=== PATIENT | female | born 1965 | race Caucasian/White ===

== ENCOUNTER 2023-12-05 10:29 | Outpatient (OUT) | payer OTHER, SELFPAY ==
--- NOTE | 2023-12-05 10:32 | US_ITS ---
The [address] [address] Patient Name: KYLEIGH BHAKTA MRN: [id number] date: 1965 Sex: F Assigned Patient Location: Current Patient Location: Accession/Order Number: [id number] Exam Date: 12/05/2023 10:33 Report Date: 12/06/2023 09:40 At the request of: RUBY AYON Procedure: US right upper quadrant EXAMINATION: US right upper quadrant HISTORY: Liver Disease K76.9, Elevated Liver Enzymes R74.8 COMPARISON: No relevant comparison available. TECHNIQUE: Transabdominal evaluation of the right upper quadrant. FINDINGS: LIVER: Heterogeneous, nodular liver suggestive of cirrhosis. Small amount of adjacent free fluid. PORTAL VEIN: Duplex Doppler demonstrates normal hepatopetal flow pattern with flow velocity averaging 29 cm/s. GALLBLADDER: Contains a 2.2 x 2.0 x 1.8 cm noncalcified structure within the fundus. No appreciable internal blood flow on color Doppler. No wall thickening or free fluid. BILIARY: No abnormal dilation or stones. Common bile duct diameter is within normal limits. PANCREASE: No visible mass, abnormal atrophy, or duct dilation. KIDNEY: No hydronephrosis. No visible mass or stones. Size: 10.6 x 5.4 x 5.0 cm. US/US right upper quadrant IMPRESSION: 1. Heterogeneous nodular liver and small amount of ascites suggestive of cirrhosis. 2. Nonspecific structure within gallbladder 2.2 cm in size and no appreciable internal blood flow. This is nonspecific but consideration is given to a large sludge ball, hypovascular mass, and/or polyp. Follow-up ultrasound evaluation of gallbladder in one-2 weeks is recommended to see if a sludge ball has cleared or this represents persistent soft tissue/mass. Electronically authenticated by: ANDER RIGGINS Date: 12/06/2023 09:40
== END 2023-12-05 10:30 | disposition home or self-care (01) ==
LOC: US 10:29
PROVIDERS: PCP Family Medicine; Visit Provider Nurse Practitioner Family
DX: K76.9 Liver disease, unspecified (principal); R74.8 Abnormal levels of other serum enzymes; R18.8 Other ascites
CPT/HCPCS: 76705

== ENCOUNTER 2023-12-28 10:29 | Outpatient (OUT) | payer OTHER, SELFPAY ==
--- NOTE | 2023-12-28 10:31 | MM_ITS ---
Patient Name: KYLEIGH BHAKTA MR#: [id number] : 1965 Exam Date: 12/28/2023 Ordering Doctor: DR BRYSON RODRIGUEZ M.D. RADIOLOGY REPORT PROCEDURE: MM TOMOSYNTHESIS SCREENING BI COMPARISON: MG MAMM SCREEN 3D ALEX CAD, 08/02/2022. INDICATIONS: Screening Calculator Name NCI Breast Cancer Risk Assessment Tool 5 Year Breast Cancer Risk Not Reported. Lifetime Breast Cancer Risk Not Reported. Personal Breast Cancer No Personal Ovarian Cancer No Treatments None Family Cancers None LOCATION: [facility] BREAST COMPOSITION: The breasts are extremely dense, which lowers the sensitivity of mammography. FINDINGS: DIAGNOSTIC CATEGORY 2--BENIGN FINDING. NO CHANGE FROM COMPARISON. Scattered benign-appearing calcifications are present. RIGHT BREAST: No significant suspicious finding. LEFT BREAST: No significant suspicious finding. RECOMMENDATIONS: ROUTINE MAMMOGRAM AND CLINICAL EVALUATION IN 12 MONTHS. PLEASE NOTE: A NORMAL MAMMOGRAM DOES NOT EXCLUDE THE POSSIBILITY OF BREAST CANCER. A CLINICALLY SUSPICIOUS PALPABLE LUMP SHOULD BE BIOPSIED. Dictated by: Herrera Burleson MD on 12/28/2023 at 12:24 Approved by: Herrera Burleson MD on 12/28/2023 at 12:25
== END 2023-12-28 10:30 | disposition home or self-care (01) ==
LOC: MAMMO 10:29
PROVIDERS: PCP Family Medicine; Visit Provider Family Medicine
DX: Z12.31 Encounter for screening mammogram for malignant neoplasm of breast (principal)
CPT/HCPCS: 77063; 77067

== ENCOUNTER 2024-01-11 09:47 | Outpatient (OUT) | payer OTHER, SELFPAY ==
--- OUTSIDE RECORDS SUMMARY | 2024-01-11 09:51 | XMS_ITS | CCD ---
Author Organization [facility] Care Team Providers Care Core Stacker Name Role Phone CR DELACRUZ Attending Unavailable SELF, REFERRED Referring Unavailable RUTH RODRIGUEZ Primary Care Unavailable CR DELACRUZ Admitting Unavailable NIKO MCDONALD Attending Unavailable NIKO MCDONALD Referring Unavailable JENNIFER, DR MASSEY Admitting Unavailable JENNIFER, DR MASSEY Primary Care Unavailable JENNIFER, DR MASSEY Consulting Unavailable JENNIFER, DR MASSEY Attending Unavailable WEST, DR JIN Martinez Consulting Unavailable RUBY AYON Attending Unavailable RUBY AYON Attending Unavailable Problems Problem Classification Problem Date Documented Da te Episodic/Chronic Fracture of lower limb (2 sources) Other fracture of lower end of right femur, subsequent encounter for closed fracture with routine healing; Translations: [Other fracture of lower end of right femur, subsequent encounter for closed fracture with routine healing] Onset: 03-30-2022 Episodic Other bone disease and musculoskeletal deformities (2 sources) Other specified disorders of bone, thigh; Translations: [Other specified disorders of bone, thigh] Onset: 03-30-2022 Episodic Other screening for suspected conditions (not mental disorders or infectious disease) (4 sources) Encounter for screening mammogram for malignant neoplasm of breast; Translations: [ENC SCR MAMMO MALIG NEOPLASM BREAST] Onset: 08-02-2022 Episodic Results Test Name Value Interpretation Reference Range Facil ity MG MAMM SCREEN 3D ALEX CADon 08-02-2022 MG MAMM SCREEN 3D ALEX CAD Patient: BERNADINE BHAKTA Exam Date: 08/02/2022 : 1965 Gender:F Ordering : DR RUTH RODRIGUEZ M.D. Admission #: [id number] Family : Order #: [id number] CLICK HERE TO VIEW EXAM RADIOLOGY REPORT PROCEDURE: MAMMOGRAM SCREENING 3D BILATERAL CAD COMPARISON: MG MAMM SCREEN ALEX W CAD, 07/21/2020. MG MAMM SCREEN 3D ALEX CAD, 07/30/2021. INDICATIONS: Screening mammography Calculator Name NCI Breast Cancer Risk Assessment Tool 5 Year Breast Cancer Risk Not Reported. Lifetime Breast Cancer Risk Not Reported. Personal Breast Cancer No Personal Ovarian Cancer No Treatments None Family Cancers None LOCATION: [facility] BREAST COMPOSITION: Extremely dense, which lowers the sensitivity of mammography. FINDINGS: DIAGNOSTIC CATEGORY 2--BENIGN FINDING. NO CHANGE FROM COMPARISON. Scattered benign-appearing calcifications are present. RIGHT BREAST: No significant suspicious finding. LEFT BREAST: No significant suspicious finding. RECOMMENDATIONS: ROUTINE MAMMOGRAM AND CLINICAL EVALUATION IN 12 MONTHS. PLEASE NOTE: A NORMAL MAMMOGRAM DOES NOT EXCLUDE THE POSSIBILITY OF BREAST CANCER. A CLINICALLY SUSPICIOUS PALPABLE LUMP SHOULD BE BIOPSIED. Dictated by: Jin Burleson MD on 08/02/2022 at 11:32 Approved by: Jin Burleson MD on 08/02/2022 at 11:36 Normal [facility] Office Visiton 03-30-2022 Follow-up visit [id number] GinaBernadine S 1965 Date Provider Department Center 03/30/2022 NIKO HAYES MP [facility] Family History Family history unknown: Yes Level of Service:72198 CO POSTOP FOLLOW UP VISIT RELATED TO ORIGINAL PX Reason for Visit and Comments: Post-op [483] Normal [facility] Orders Onlyon 03-30-2022 Orders Only [id number] Bernadine Bhakta 1965 Date Provider Department Center 03/30/2022 NOVA OKEEFE MP [facility] Family History Family history unknown: Yes Normal [facility] FEMUR RIGHT 2 VWSon 02-12-20 22 FEMUR RIGHT [address] [facility] Department of Radiology [address] [place] [address] Patient Name: BERNADINE BHAKTA Varghese : 1965 Sex: F Age: Race: White Pt. Location: 84 Patient Status: D Ordered Date: 02/11/2022 9:15:00 AM Completed Date: 02/11/2022 09:18 AM Requesting Provider: CR DELACRUZ Attending Provider: CR DELACRUZ Report Copy To: Signs & Symptoms: Z48.89 Encounter for other specified surgical aftercare History: Comments: Evaluate Exam: FEMUR RIGHT 2 VWS FEMUR RIGHT 2 VWS 02/11/2022 9:20 AM CLINICAL INDICATIONS: Z48.89 Encounter for other specified surgical aftercare TECHNOLOGIST COMMENTS: History of right femur surgery 01/08/2022. Ortho follow up. QUESTION FOR THE RADIOLOGIST: Evaluate PROTOCOL: AP(PA) and Lateral views were obtained. COMPARISON: XR right femur 01/21/2022 IMPRESSION: Stable appearance of right proximal and distal femoral fixation hardware without evidence for associated complication. Unchanged appearance of heterotopic bone formation about the right lesser trochanter and distal femur. Additional presence of proximal tibial plate/screw fixation hardware. Vascular calcifications noted. Approved by:Philip Joseph02/12/2022 1:44 PM. I, Cherie Coronel,have reviewed the image(s) and agree with the findings in this report. Electronically signed: Cherie Coronel. Transcribed by: [email or web address], User Resident: PHILIP ARMANDO Electronically Signed by: CHERIE CORONEL @ 02/12/2022 03:34 PM I personally read this/these film(s) with this resident Normal [facility] Comment on above: Order Comment: Yes: Add to Previous draw if able FEMUR RIGHT 2 VWSon 01-22-20 22 FEMUR RIGHT [address] [facility] Department of Radiology [address] [place] [id number] Patient Name: BERNADINE BHAKTA : 1965 Sex: F Age: Race: White Pt. Location: Patient Status: O Ordered Date: 01/21/2022 8:45:00 AM Completed Date: 01/21/2022 08:48 AM Requesting Provider: CR DELACRUZ Attending Provider: CR DELACRUZ Report Copy To: Signs & Symptoms: Z48.89 Encounter for other specified surgical aftercare I10 History: Comments: Evaluate Exam: FEMUR RIGHT 2 VWS EXAMINATION: FEMUR RIGHT 2 VWS 01/21/2022 8:48 AM CLINICAL HISTORY: Z48.89 Encounter for other specified surgical aftercare I10 TECHNOLOGIST COMMENTS: follow/up surgery 01/07/2022 to right femur QUESTION FOR THE RADIOLOGIST: Evaluate TECHNIQUE: AP(PA) and Lateral views were obtained. COMPARISON: Comparison is made with right femur radiographs of 01/07/2022. FINDINGS: There has been interval open reduction internal fixation of the fracture of the distal femur with plate and screws. Fracture line is visualized. Stable postsurgical changes seen in the proximal femur with fixation hardware. There is a heterotopic new bone formation or myositis ossificans on the medial aspect of the hip joint from the level of the lesser trochanter. There is a presence of the plate and screws in the proximal tibia. There are vascular calcifications. IMPRESSION: See the discussion above. Electronically signed: Joe Rueda. Transcribed by: [email or web address], User Resident: Electronically Signed by: JOE RUEDA @ 01/21/2022 09:27 AM Normal [facility] Comment on above: Order Comment: No: D o not add to previous draw BASIC METABOLIC PANELon 07-2 Calcium [Mass/Vol] 8.8 mg/dL Normal 8.6-10.3 [facility] Comment on above: Order Comment: Yes: Add to Previous draw if able Performed By: #### 0 0071 #### [facility] [address] [place] [address], [place] Chloride [Moles/Vol] 99 mmol/L Normal 98-[address] [facility] Comment on above: Order Comment: Yes: Add to Previous draw if able Performed By: #### 0 0071 #### [facility] [address] [place] [address], [place] CO2 [Moles/Vol] 23 mmol/L Normal 21-31 [facility] Comment on above: Order Comment: Yes: Add to Previous draw if able Performed By: #### 0 0071 #### [facility] [address] [place] [address], [place] Creatinine [Mass/Vol] 0.81 mg/dL Normal 0.60-1.[address] [facility] Comment on above: Order Comment: Yes: Add to Previous draw if able Performed By: #### 0 0071 #### [facility] [address] [place] [address], [place] GFR/1.73 sq M.predicted among blacks MDRD (S/P/Bld) [Vol rate/Area] mL/min/{1.73_m2} Normal >[address] [facility] Comment on above: Order Comment: Yes: Add to Previous draw if able Performed By: #### 0 0071 #### [facility] [address] [place] [address], [place] GFR/1.73 sq M.predicted among non-blacks MDRD (S/P/Bld) [Vol rate/Area] mL/min/{1.73_m2} Normal >[address] [facility] Comment on above: Order Comment: Yes: Add to Previous draw if able Performed By: #### 0 0071 #### [facility] [address] [place] [address], [place] Glucose [Mass/Vol] 155 mg/dL High 70-100 [facility] Comment on above: Order Comment: Yes: Add to Previous draw if able Performed By: #### 0 0071 #### [facility] [address] [place] [address], [place] Potassium [Moles/Vol] 3.6 mmol/L Normal 3.5-5.[address] [facility] Comment on above: Order Comment: Yes: Add to Previous draw if able Performed By: #### 0 0071 #### [facility] [address] [place] [address], [place] Sodium [Moles/Vol] 134 mmol/L Low 136-145 [facility] Comment on above: Order Comment: Yes: Add to Previous draw if able Performed By: #### 0 0071 #### [facility] [address] [place] [address], [place] Urea nitrogen [Mass/Vol] 7 mg/dL Normal 7-[address] [facility] Comment on above: Order Comment: Yes: Add to Previous draw if able Performed By: #### 0 0071 #### [facility] [address] [place] [address], [place] POC GLUCOSE LABon 01-09-2022 Glucose [Mass/Vol] 105 mg/dL High 70-100 [facility] Comment on above: Performed By: #### 0 0071 #### [facility] [address] [place] [address], [place] Glucose [Mass/Vol] 165 mg/dL High 70-100 [facility] Comment on above: Performed By: #### 0 0071 #### [facility] [address] [place] [address], [place] BASIC METABOLIC PANELon 07-2 Calcium [Mass/Vol] 9.3 mg/dL Normal 8.6-10.3 [facility] Comment on above: Order Comment: Unkno wn Performed By: #### 0 0071 #### [facility] [address] [place] [address], [place] Chloride [Moles/Vol] 98 mmol/L Normal 98-[address] [facility] Comment on above: Order Comment: Unkno wn Performed By: #### 0 0071 #### [facility] [address] [place] [address], [place] CO2 [Moles/Vol] 26 mmol/L Normal 21-31 [facility] Comment on above: Order Comment: Unkno wn Performed By: #### 0 0071 #### [facility] [address] [place] [address], [place] Creatinine [Mass/Vol] 0.60 mg/dL Normal 0.60-1.[address] [facility] Comment on above: Order Comment: Unkno wn Performed By: #### 0 0071 #### [facility] [address] [place] [id number], [place] GFR/1.73 sq M.predicted among blacks MDRD (S/P/Bld) [Vol rate/Area] mL/min/{1.73_m2} Normal >[address] [facility] Comment on above: Order Comment: Unkno wn Performed By: #### 0 0071 #### [facility] [address] [place] [address], [place] GFR/1.73 sq M.predicted among non-blacks MDRD (S/P/Bld) [Vol rate/Area] mL/min/{1.73_m2} Normal >[address] [facility] Comment on above: Order Comment: Unkno wn Performed By: #### 0 0071 #### [facility] [address] [place] [address], [facility] Glucose [Mass/Vol] 124 mg/dL High 70-100 [facility] Comment on above: Order Comment: Unkno wn Performed By: #### 0 0071 #### [facility] [address] [place] [address], [place] Potassium [Moles/Vol] 4.4 mmol/L Normal 3.5-5.[address] [facility] Comment on above: Order Comment: Unkno wn Performed By: #### 0 0071 #### [facility] [address] [place] [address], [place] Sodium [Moles/Vol] 133 mmol/L Low 136-145 [facility] Comment on above: Order Comment: Unkno wn Performed By: #### 0 0071 #### [facility] [address] [place] [address], [facility] Urea nitrogen [Mass/Vol] 5 mg/dL Low 7-[address] [facility] Comment on above: Order Comment: Unkno wn Performed By: #### 0 0071 #### [facility] [address] [place] [address], [facility] CBC COMPLETE BLOOD COUNTon 0 - Erythrocyte distribution width (RBC) [Ratio] 13.1 % Normal 11.5-15.[address] [facility] Comment on above: Order Comment: No: D o not add to previous draw Performed By: #### 0 0071 #### [facility] [address] [place] [address], [place] Hematocrit (Bld) [Volume fraction] 35.9 % Low 36.0-45.[address] [facility] Comment on above: Order Comment: No: D o not add to previous draw Performed By: #### 0 0071 #### [facility] [address] [place] [address], [place] Hemoglobin (Bld) [Mass/Vol] 11.9 g/dL Low 12.0-15.[address] [facility] Comment on above: Order Comment: No: D o not add to previous draw Performed By: #### 0 0071 #### [facility] [address] [place] [address], [facility] MCH (RBC) [Entitic mass] 34.2 pg High 27.0-33.[address] [facility] Comment on above: Order Comment: No: D o not add to previous draw Performed By: #### 0 0071 #### [facility] [address] [place] [address], [facility] MCHC (RBC) [Mass/Vol] 33.1 g/dL Normal 32.0-35.[address] [facility] Comment on above: Order Comment: No: D o not add to previous draw Performed By: #### 0 0071 #### [facility] [address] [place] [address], [facility] MCV (RBC) [Entitic vol] 103.2 fL High 82.0-98.[address] [facility] Comment on above: Order Comment: No: D o not add to previous draw Performed By: #### 0 0071 #### [facility] [address] [facility] [place] [place] [address], [facility] Nucleated RBC/100 WBC (Bld) [Ratio] 0 % Normal 0-[address] [facility] Comment on above: Order Comment: No: D o not add to previous draw Performed By: #### 0 0071 #### [facility] [address] [facility] [place] [address], [facility] PLAT CNT 175 10*3/uL Normal 150-400 [facility] Comment on above: Order Comment: No: D o not add to previous draw Performed By: #### 0 0071 #### [facility] [address] [place] [address], [facility] RBC (Bld) [#/Vol] 3.48 10*6/uL Low 3.80-5.00 [facility] Comment on above: Order Comment: No: D o not add to previous draw Performed By: #### 0 0071 #### [place] [id number], [facility] WBC (Bld) [#/Vol] 8.17 10*3/uL Normal 4.00-10.60 [facility] Comment on above: Order Comment: No: D o not add to previous draw Performed By: #### 0 0071 #### [id number] [place] [address] FEMUR RIGHT 2 VWSon 01-09-20 22 FEMUR RIGHT [address] [facility] Department of Radiology [address] [place] [id number] Patient Name: BERNADINE BHAKTA : 1965 Sex: F Age: Race: White Pt. Location: [id number] Patient Status: I Ordered Date: 01/08/2022 1:30:00 PM Completed Date: 01/08/2022 12:36 PM Requesting Provider: CR DELACRUZ Attending Provider: CR DELACRUZ Report Copy To: Signs & Symptoms: ORIF RIGHT DISTAL FEMUR History: Comments: ORIF RIGHT DISTAL FEMUR Exam: FEMUR RIGHT 2 VWS FEMUR RIGHT 2 VWS 01/08/2022 12:36 PM CLINICAL INDICATIONS: ORIF RIGHT DISTAL FEMUR TECHNOLOGIST COMMENTS: 32 secs of fluoro used by Dr Delacruz QUESTION FOR THE RADIOLOGIST: ORIF RIGHT DISTAL FEMUR PROTOCOL: AP(PA) and Lateral views were obtained. IMPRESSION: Fluoroscopic assistance and guidance was provided for clinical service There is localization of the distal femur fracture with plate and screw placed reducing the fracture There is a pre-existing plate and screw in the proximal tibia Please refer to the separate detailed surgical note 12 images submitted Electronically signed: Kat Newton. Transcribed by: [email or web address], User Resident: Electronically Signed by: KAT NEWTON @ 01/08/2022 01:03 PM Normal [facility] Comment on above: Order Comment: No: D o not add to previous draw Operative Reporton Operative Report MR#: [id number] [facility] Pt. Name: Bernadine Bhakta Room #: [id number] Discharge Date: Birthdate: 1965 OPERATIVE REPORT DATE OF SURGERY: 01/08/2022 SURGEON: Cr Delacruz M.D. PRE PROCEDURE DIAGNOSIS: Right intra-articular distal femur fracture. POSTPROCEDURE DIAGNOSIS: Right intra-articular distal femur fracture. PROCEDURE PERFORMED: Open reduction, internal fixation, right medial distal femoral condyle. ASSISTANTS: 1. Jonas Geller MD, PGY-5. 2. Jett Carty MD, PGY-4. 3. Theo Khan MD, PGY-2. ANESTHESIA: General, endotracheal tube. FLUIDS: Please see anesthesia report. ESTIMATED BLOOD LOSS: 50 mL. IMPLANTS: 1. Synthes 8-hole 1/3 semi tubular plate with associated 6.5 mm cancellous and 4.5 mm cortical screws of appropriate lengths. EXPLANTS: None. SPECIMENS: None. TOURNIQUET TIME: 75 minutes at 300 mmHg. FINDINGS: Stable fixation of right medial femoral condyle fracture. Of note, the patient's bone quality was quite poor due to advanced smoking history and previous fractures. Additionally, her soft tissue envelope was quite tight forcing us to use a thinner implant that originally planned upon. This 1/3 semitubular plate was chosen due to its low profile and ability to close the soft tissue envelope without tension. INDICATION FOR PROCEDURE: Patient is a 56-year-old female, who sustained a right distal intra-articular femur fracture after a fall. She presented to [facility] Emergency Department, where x-rays were obtained demonstrating a fracture. CT was also obtained demonstrating intra-articular extent of the fracture. Due to displacement and intra-articular nature of the fracture as well as the patient's inability to bear weight without operative stabilization, risks, benefits, and alternatives were discussed with the patient. Initially operative stabilization was decided upon. DESCRIPTION OF PROCEDURE: The patient was met in the preoperative holding area, where physical exam was performed and informed consent was confirmed to be correct. The right lower extremity was marked as the operative site. The patient was transported to the operative suite, where general anesthesia was induced and airway was secured with endotracheal tube. The patient received preoperative antibiotics in accordance with her allergies and operating room protocol. The right lower extremity was then prepped and draped in normal sterile fashion with the application of a sterile tourniquet. A time-out was performed identifying patient by name, date of , medical record number, procedure to be performed including site and laterality. Operative staff were also introduced at this time. A standard medial approach to the distal femur was then marked from approximately 2 cm distal to the medial femoral epicondyle along the femoral shaft proximally. The limb was exsanguinated and the tourniquet was elevated to 300 mmHg. The skin was dissected sharply down to the layer of subcutaneous tissues. Hemostasis was obtained with Bovie electrocautery. The fascia was opened with Bovie electrocautery while protecting the structures underneath. The vastus medialis was then elevated and dissection was carried down to the level of the femur bluntly. Hemostasis was obtained with Bovie electrocautery along the edge of the bone. One large perforating artery proximally was encountered and ligated with 2-0 silk. This afforded excellent visualization of the medial aspect of the distal femur. distal femur plate was originally placed alongside the bone, but this was deemed too bulky for her soft tissue envelope. A Synthes 1/3 semi tubular plate was then chosen, which afforded a much easier closure of soft tissue. This was placed in appropriate position on AP and lateral fluoroscopy. Distally, 6.5 mm fully-threaded cancellous screws were drilled and placed to hold in the metaphyseal bone. Approximately, 4.5 mm cortical screws were placed. At the end tightening, all screw sites were found to have excellent purchase. The incision was irrigated with Betadine and saline before being closed in the standard layered fashion with 0 Vicryl deep, 2-0 Vicryl in the deep dermal layer. The skin was then closed with 3-0 Novafil. The soft sterile dressing was applied and the patient was placed back in the knee immobilizer. Tourniquet was released before dressing application. Anesthesia reversed. The patient is extubated in the operative suite without complication. POSTOPERATIVE PLAN: Patient will recover in PACU before returning to the hospital room upstairs. The patient will remain nonweightbearing to the right lower extremity with knee immobilizer in place at all times. The patient ordered physical therapy and occupational therapy as well. Patient will receive standard postoperative antibiotic prophylaxis. The patient will also receive DVT (more content not included)... Normal [facility] POC GLUCOSE LABon 01-08-2022 Glucose [Mass/Vol] 141 mg/dL High 70-100 [facility] Comment on above: Performed By: #### 3 1400, [id number], [id number] #### [facility] [address] [place] [address], [facility] Glucose [Mass/Vol] 227 mg/dL High 70-100 [facility] Comment on above: Performed By: #### 3 1400, [id number], [id number] #### [facility] [address] [place] [address], [place] Glucose [Mass/Vol] 158 mg/dL High 70-100 The [facility] Comment on above: Performed By: #### 3 1400, 64928, 70564 #### [facility] [address] [place] [address], [place] *MRSA/MSSA DNA NASALon 01-07 *MRSA/MSSA DNA NASAL Clinical Report: (D) Specimen/Source: NASAL SWAB/NARES Collected: 01/07/2022 07:45 Status: Final Last Updated: 01/08/2022 20:33 MSSA DNA (Final) Methicillin Susceptible Staphylococcus aureus DNA Detected MRSA DNA (Final) Negative Normal [facility] Comment on above: Performed By: #### 3 1400, 67791, 10610 #### [facility] [address] [place] [address], [facility] APTTon 01-07-2022 aPTT Coag (Bld) [Time] 35.6 s High 25.0-35.0 [facility] Comment on above: Result Comment: ALL RESULTS MUST BE INTERPRETED WITH RESPECT TO BLOOD DRAWING ARTIFACT OR DILUTION ERROR OF ANTICOAGULANT AT THE TIME OF SAMPLING. THE APTT SHOULD NOT BE USED TO MONITOR UNFRACTIONATED HEPARIN THERAPY, THIS LABORATORY NO LONGER HAS AN ESTABLISHED THERAPEUTIC RANGE BASED ON THE APTT. IT IS RECOMMENDED THAT THE [facility] - HEPARIN ASSAY (ANTI-XA ACTIVITY) BE USED FOR THIS PURPOSE. Performed By: #### 3 1400, [id number], [id number] #### [facility] [address] BASIC METABOLIC PANELon - Calcium [Mass/Vol] 9.2 mg/dL Normal 8.6-10.3 [facility] Comment on above: Order Comment: No: D o not add to previous draw Performed By: #### 0 0071 #### [facility] [address] [facility] [address], [facility] Chloride [Moles/Vol] 98 mmol/L Normal 98-[address] [facility] Comment on above: Order Comment: No: D o not add to previous draw Performed By: #### 0 0071 #### [facility] [address] [place] [place] [address], [facility] CO2 [Moles/Vol] 24 mmol/L Normal 21-31 The [facility] Comment on above: Order Comment: No: D o not add to previous draw Performed By: #### 0 0071 #### [facility] [address] [place] [address], [facility] Creatinine [Mass/Vol] 0.57 mg/dL Low 0.60-1.[address] [facility] Comment on above: Order Comment: No: D o not add to previous draw Performed By: #### 0 0071 #### [facility] [address] [place] [address], [place] GFR/1.73 sq M.predicted among blacks MDRD (S/P/Bld) [Vol rate/Area] mL/min/{1.73_m2} Normal >[address] [facility] Comment on above: Order Comment: No: D o not add to previous draw Performed By: #### 0 0071 #### [facility] [address] [place] [address], [place] GFR/1.73 sq M.predicted among non-blacks MDRD (S/P/Bld) [Vol rate/Area] mL/min/{1.73_m2} Normal >[address] [facility] Comment on above: Order Comment: No: D o not add to previous draw Performed By: #### 0 0071 #### [facility] [address] [place] [address], [place] Glucose [Mass/Vol] 146 mg/dL High 70-100 [facility] Comment on above: Order Comment: No: D o not add to previous draw Performed By: #### 0 0071 #### [facility] [address] [place] [address], [place] Potassium [Moles/Vol] 4.5 mmol/L Normal 3.5-5.[address] [facility] Comment on above: Order Comment: No: D o not add to previous draw Performed By: #### 0 0071 #### [facility] [address] [place] [address], [place] Sodium [Moles/Vol] 133 mmol/L Low 136-145 The [facility] Comment on above: Order Comment: No: D o not add to previous draw Performed By: #### 0 0071 #### [facility] [address] [place] [address], [place] Urea nitrogen [Mass/Vol] 5 mg/dL Low 7-[address] [facility] Comment on above: Order Comment: No: D o not add to previous draw Performed By: #### 0 0071 #### [facility] [address] [facility] [place] [address], [facility] CBC W/DIFFon 01-07-2022 ABS IMM GRANS 0.0 10*3/uL Normal 0.0-0.2 The [facility] Comment on above: Performed By: #### 3 1400, 60945, 70563 #### [facility] [address] [place] [address], [facility] ABS NEUTROPHILS 4.5 10*3/uL Normal 1.6-7.6 The [facility] Comment on above: Performed By: #### 3 1400, , 73002 #### [facility] [address] [place] [address], [facility] Basophils (Bld) [#/Vol] 0.0 10*3/uL Normal 0.0-0.[address] [facility] Comment on above: Performed By: #### 3 1400, 37619, 25183 #### [facility] [address] [place] [address], [facility] Basophils/100 WBC (Bld) 0.7 % Normal 0.0-1.[address] [facility] Comment on above: Performed By: #### 3 1400, 33907, 44870 #### [facility] [address] [place] [place] [address], [facility] Eosinophils (Bld) [#/Vol] 0.0 10*3/uL Normal 0.0-0.[address] [facility] Comment on above: Performed By: #### 3 1400, 37955, 83968 #### [facility] [address] [place] [place] [address], [facility] Eosinophils/100 WBC (Bld) 0.3 % Normal 0.0-6.[address] [facility] Comment on above: Performed By: #### 3 1400, , 77852 #### [facility] [address] [place] [address], [facility] Erythrocyte distribution width (RBC) [Ratio] 13.2 % Normal 11.5-15.[address] [facility] Comment on above: Performed By: #### 3 1399, , 83888 #### [facility] [address] [place] [address], [facility] Hematocrit (Bld) [Volume fraction] 37.8 % Normal 36.0-45.[address] [facility] Comment on above: Performed By: #### 3 1399, , 02289 #### [facility] [address] [place] [place] [address], [facility] Hemoglobin (Bld) [Mass/Vol] 13.0 g/dL Normal 12.0-15.[address] [facility] Comment on above: Performed By: #### 3 1399, , 91724 #### [facility] [address] [place] [place] [address], [facility] IMMATURE GRANS 0.5 % Normal 0.0-1.0 The [facility] Comment on above: Performed By: #### 3 1399, , 78699 #### [facility] [address] [facility] [place] [place] [address], [facility] Lymphocytes (Bld) [#/Vol] 1.0 10*3/uL Low 1.2-4.[address] [facility] Comment on above: Performed By: #### 3 1399, , 20840 #### [facility] [address] [facility] [place] [address], [place] Lymphocytes/100 WBC (Bld) 16.8 % Low 20.0-45.[address] [facility] Comment on above: Performed By: #### 3 1399, , 81793 #### [facility] [address] [place] [address], [facility] MCH (RBC) [Entitic mass] 34.2 pg High 27.0-33.[address] [facility] Comment on above: Performed By: #### 3 1400, 16487, 83573 #### [facility] [address] MCHC (RBC) [Mass/Vol] 34.4 g/dL Normal 32.0-35.[address] [facility] Comment on above: Performed By: #### 3 1400, , 24247 #### [facility] [address] MCV (RBC) [Entitic vol] 99.5 fL High 82.0-98.[address] [facility] Comment on above: Performed By: #### 3 1399, , 34934 #### [facility] [address] Monocytes (Bld) [#/Vol] 0.3 10*3/uL Normal 0.1-1.[address] [facility] Comment on above: Performed By: #### 3 1399, , 88562 #### [facility] [address] MONOS 4.7 % Low 5.0-12.[address] [facility] Comment on above: Performed By: #### 3 1399, , 02176 #### [facility] [address] [facility]. [address] Neutrophils/100 WBC (Bld) 77.0 % High 40.0-72.[address] [facility] Comment on above: Performed By: #### 3 1399, 55387, 02617 #### [facility] [address] [place] [address], [facility] Nucleated RBC/100 WBC (Bld) [Ratio] 0 % Normal 0-[address] [facility] Comment on above: Performed By: #### 3 1400, 10974, 64144 #### [facility] [address] PLAT CNT 177 10*3/uL Normal 150-400 The [facility] Comment on above: Performed By: #### 3 1400, 51237, 01823 #### [facility] [address] [facility] [place] [address], [facility] RBC (Bld) [#/Vol] 3.80 10*6/uL Normal 3.80-5.00 The [facility] Comment on above: Performed By: #### 3 1400, 32874, 23856 #### [facility] [address] [place] [place] [address], [facility] WBC (Bld) [#/Vol] 5.90 10*3/uL Normal 4.00-10.60 The [facility] Comment on above: Performed By: #### 3 1400, 85372, 39345 #### [facility] [address] [facility]. [address] COMP METABOLIC PANELon 01-07 Albumin [Mass/Vol] 3.8 g/dL Normal 3.5-5.7 [facility] Comment on above: Performed By: #### 0 0121, 26428, 98147 #### [facility] [address] [facility]. [address] ALKALINE PHOSPH 108 IU/L High 34-104 [facility] Comment on above: Performed By: #### 0 0121, 42229, 54326 #### [facility] [address] [facility] ALT [Catalytic activity/Vol] 32 U/L Normal 7-[address] [facility] Comment on above: Performed By: #### 0 0121, 84817, 72625 #### [facility] [address] AST [Catalytic activity/Vol] 122 U/L High 13-[address] [facility] Comment on above: Performed By: #### 0 0121, 92003, 69838 #### [facility] [address] [place] [address], [place] Bilirubin [Mass/Vol] 0.6 mg/dL Normal 0.3-1.0 [facility] Comment on above: Performed By: #### 0 0121, , 15208 #### [facility] [address] [place] [address], [place] Calcium [Mass/Vol] 8.2 mg/dL Low 8.6-10.3 [facility] Comment on above: Performed By: #### 0 0121, , 04549 #### [facility] [address] [place] [address], [place] Chloride [Moles/Vol] 94 mmol/L Low 98-[address] [facility] Comment on above: Performed By: #### 0 0121, , 06761 #### [facility] [address] [place] [address], [place] CO2 [Moles/Vol] 22 mmol/L Normal 21-31 [facility] Comment on above: Performed By: #### 0 0121, , 08163 #### [facility] [address] [place] [address], [place] Creatinine [Mass/Vol] 0.59 mg/dL Low 0.60-1.[address] [facility] Comment on above: Performed By: #### 0 0121, , 03569 #### [facility] [address] [place] [address], [place] GFR/1.73 sq M.predicted among blacks MDRD (S/P/Bld) [Vol rate/Area] mL/min/{1.73_m2} Normal >[address] [facility] Comment on above: Performed By: #### 0 0121, , 39576 #### [facility] [address] [place] [address], [place] GFR/1.73 sq M.predicted among non-blacks MDRD (S/P/Bld) [Vol rate/Area] mL/min/{1.73_m2} Normal >[address] [facility] Comment on above: Performed By: #### 0 0121, 52348, 56931 #### [facility] [address] [place] [address], [place] Glucose [Mass/Vol] 129 mg/dL High 70-100 The [facility] Comment on above: Performed By: #### 0 0121, , 25552 #### [facility] [address] [place] [address], [place] Potassium [Moles/Vol] 4.4 mmol/L Normal 3.5-5.[address] [facility] Comment on above: Performed By: #### 0 0121, , 13079 #### [facility] [address] [place] [address], [place] Protein [Mass/Vol] 6.6 g/dL Normal 6.0-8.3 The [facility] Comment on above: Performed By: #### 0 0121, 48087, 99683 #### [facility] [address] [place] [address], [place] Sodium [Moles/Vol] 129 mmol/L Low 136-145 The [facility] Comment on above: Performed By: #### 0 0121, 66725, 53806 #### [facility] [address] [place] [address], [place] Urea nitrogen [Mass/Vol] 4 mg/dL Low 7-[address] [facility] Comment on above: Performed By: #### 0 0121, 79200, 16501 #### [facility] [address] [place] [address], [place] CT LOWER EXTREMITY WO CONTRA ST RIGHTon 01-07-2022 CT LOWER EXTREMITY WO CONTRAST RIGHT [facility] Department of Radiology [address] [place] [id number] Patient Name: BERNADINE BHAKTA : 1965 Sex: F Age: Race: White Pt. Location: [facility] Patient Status: I Ordered Date: 01/07/2022 3:10:00 AM Completed Date: 01/07/2022 04:31 AM Requesting Provider: THEO JASSO Attending Provider: MALI GREEN Report Copy To: Signs & Symptoms: Fracture History: See Comments Comments: Fractures, CT w/o contrast to scan from right mid-femur, down thru knee, to level of mid tibia to assess for intraarticular extension of fracture Exam: CT LOWER EXTREMITY WO CONTRAST RIGHT CT LOWER EXTREMITY WO CONTRAST RIGHT HISTORY: Right femur fracture. Pain. COMPARISON: 11/15/2012 TECHNIQUE: Routine CT of the right knee was obtained without contrast. Sagittal and coronal reformats were generated from the axial data. Automated exposure control was utilized. All CT scans at this facility use dose modulation, iterative reconstruction, and/or weight based dosing when appropriate to reduce radiation dose to as low as reasonably achievable. FINDINGS: Bones: * Comminuted fracture of the distal femoral metaphysis with extension distally to the intercondylar region as well as the medial and lateral articular surfaces. No significant displacement. * No acute osseous abnormality of the patella or visualized portions of the tibia and fibula. * Surgical hardware in the proximal tibia without evidence of failure or complication. Soft tissues: * Small suprapatellar joint effusion. * Soft tissue swelling adjacent to the fracture. * Mild to moderate vascular calcifications. IMPRESSION: Comminuted, nondisplaced fracture of the distal femoral metaphysis with extension to the intercondylar region, medial articular surface, and lateral articular surface. Approved by:Elías Jolley01/07/2022 4:52 AM. I, Mehul Maxwell,have reviewed the image(s) and agree with the findings in this report. Electronically signed: Mehul Maxwell. Transcribed by: [email or web address], User Resident: ELÍAS GUPTA Electronically Signed by: MEHUL MAXWELL @ 01/07/2022 05:00 AM I personally read this/these film(s) with this resident Normal The [facility] Comment on above: Order Comment: No: D o not add to previous draw FEMUR RIGHT 2 Son 01-08-20 22 FEMUR RIGHT [address] [facility] Department of Radiology [address] [place] [id number] Patient Name: BERNADINE BHAKTA : 1965 Sex: F Age: Race: White Pt. Location: [facility] Patient Status: E Ordered Date: 01/07/2022 1:45:00 AM Completed Date: 01/07/2022 02:03 AM Requesting Provider: MALI GREEN Attending Provider: MALI GREEN Report Copy To: Signs & Symptoms: Pain History: Comments: FX Exam: FEMUR RIGHT 2 S FEMUR RIGHT 2 S HISTORY: Right thigh pain status post fall COMPARISON: Radiographs of the pelvis and right hip dated 11/05/2015. Same day radiographs of the right knee. FINDINGS: AP and lateral views obtained. ORIF right proximal femur without evidence of hardware failure or complication. Unchanged heterotopic bone formation associated with the lesser trochanter. The visualized portions of the osseous pelvis are unremarkable. Comminuted right distal femur fracture with extension to the articular surface. Overlying soft tissue swelling. Vascular calcifications. Phleboliths within the pelvis. IMPRESSION: Comminuted right distal femur fracture with extension to the articular surface. Approved by:Elías Jolley01/07/2022 2:21 AM. I, Mehul Maxwell,have reviewed the image(s) and agree with the findings in this report. Electronically signed: Mehul Maxwell. Transcribed by: [email or web address], User Resident: ELÍAS GUPTA Electronically Signed by: MEHUL MAXWELL @ 01/07/2022 02:24 AM I personally read this/these film(s) with this resident Normal The [facility] Comment on above: Order Comment: No: D o not add to previous draw HEPATITIS B CORE ANTIBODYon 01-07-2022 HEP B CORE AB Non-Reactive Normal NONREACTIVE [facility] Comment on above: Order Comment: Yes: Add to Previous draw if able Performed By: #### 3 1400, 79427, 58501 #### [facility] [address] [facility] [place] [address], [facility] HEPATITIS B SURFACE ANTIGEN QUALon 01-07-2022 HEP B SURF AG QUAL Non-Reactive Normal NONREACTIVE The [facility] Comment on above: Order Comment: Yes: Add to Previous draw if able Performed By: #### 3 1400, 68853, 28136 #### [facility] [address] [place] [address], [place] HEPATITIS C ANTIBODYon 01-07 ANTI-HCV Non-Reactive Normal NONREACTIVE The [facility] Comment on above: Order Comment: No: D o not add to previous draw Performed By: #### 3 1400, 16980, 31100 #### [facility] [address] [place] [address], [facility] KNEE RIGHT 3 VWSon 2 KNEE RIGHT [address] [facility] Department of Radiology [address] [place] [id number] Patient Name: BERNADINE BHAKTA : 1965 Sex: F Age: Race: White Pt. Location: [facility] Patient Status: E Ordered Date: 01/07/2022 12:40:00 AM Completed Date: 01/07/2022 01:00 AM Requesting Provider: MALI GREEN Attending Provider: MALI GREEN Report Copy To: Signs & Symptoms: Pain History: Comments: FX Exam: KNEE RIGHT 3 S KNEE RIGHT 3 [facility] HISTORY: Right knee pain status post fall COMPARISON: 04/18/2017 FINDINGS: AP, lateral, and sunrise views obtained. Ghost tracts in the distal femur. Orthopedic hardware in the proximal tibia without evidence of hardware failure or complication. Tricompartmental degenerative changes, similar to prior exam. No significant suprapatellar joint effusion. Mild soft tissue swelling. Incidental note of vascular calcifications. On the AP view, there is a linear lucency in the medial femoral metaphysis with at least 2 additional lucencies distally. On the lateral view, there is a curvilinear lucency in the femoral metaphysis with possible cortical step-off anteriorly. The portion of the femur distal to this appears somewhat angulated, although evaluation is limited secondary to suboptimal patient positioning. IMPRESSION: There is a comminuted fracture of the right distal femur extending to the intercondylar region and articular surface. Approved by:Elías Jolley01/07/2022 1:55 AM. I, Mehul Maxwell,have reviewed the image(s) and agree with the findings in this report. Electronically signed: Mehul Maxwell. Transcribed by: [email or web address], User Resident: ELÍAS GUPTA Electronically Signed by: MEHUL MAXWELL @ 01/07/2022 02:17 AM I personally read this/these film(s) with this resident Normal The [facility] Comment on above: Order Comment: No: D o not add to previous draw OSMOLALITY BLOODon 2 Osmolality [Osmolality] 337 mosm/kg Critically high 285-[address] [facility] Comment on above: Performed By: #### 0 0121, 61151, 28283 #### [facility] [address] [place] [address], [place] OSMOLALITY URINEon 2 OSMOLALITY 499 mOsm/kg Normal 50-1400 [facility] Comment on above: Order Comment: Yes: Add to Previous draw if able Performed By: #### 3 1400, 18026, 75381 #### [facility] [address] [place] [address], [place] POC GLUCOSE LABon 01-07-2022 Glucose [Mass/Vol] 136 mg/dL High 70-100 The [facility] Comment on above: Performed By: #### 3 1400, 26253, 36816 #### [facility] [address] [place] [address], [place] Glucose [Mass/Vol] 151 mg/dL High 70-100 [facility] Comment on above: Performed By: #### 0 0071 #### [facility] [address] [place] [address], [place] Glucose [Mass/Vol] 127 mg/dL High 70-100 The [facility] Comment on above: Performed By: #### 0 0071 #### [facility] [address] [place] [address], [place] POC SARS COV2 IDon SARS-CoV-2 (COVID-19) RNA KEELEY+probe Ql (Unsp spec) Negative Normal NEGATIVE The [facility] Comment on above: Result Comment: ID N OW COVID-19 assay performed on the ID NOW Instrument is a rapid molecular in vitro diagnostic test utilizing an isothermal nucleic acid amplification technology intended for the qualitative detection of nucleic acid from the SARS-CoV-2 virus in direct anterior nasal (nasal), nasopharyngeal or throat swabs from individuals who are suspected of COVID-19 by their healthcare provider within the first seven days of the onset of symptoms. Testing is limited to laboratories certified under the Clinical Laboratory Improvement Amendments of 1988 (CLIA), 42 U.S.C. ???263a,that meet the requirements to perform high, moderate, or waived complexity tests. The ID NOW COVID-19 assay is also authorized for use at the Point of Care (POC), i.e., in patient care settings operating under a CLIA Certificate of Waiver, Certificate of Compliance, or Certificate of Accreditation. Performed By: #### 0 0071 #### [address] PORTABLE TIBIA FIBULA RIGHTo n 01-07-2022 PORTABLE TIBIA FIBULA RIGHT [facility] Department of Radiology [address] [place] [id number] Patient Name: BERNADINE BHAKTA : 1965 Sex: F Age: Race: White Pt. Location: [facility] Patient Status: E Ordered Date: 01/07/2022 3:10:00 AM Completed Date: 01/07/2022 03:35 AM Requesting Provider: THEO JASSO Attending Provider: MALI GEREN Report Copy To: Signs & Symptoms: Pain History: Comments: FX, AP and lateral of tib/fib please Exam: PORTABLE TIBIA FIBULA RIGHT PORTABLE TIBIA FIBULA RIGHT 01/07/2022 3:35 AM CLINICAL INDICATIONS: Pain acute leg pain QUESTION FOR THE RADIOLOGIST: FX, AP and lateral of tib/fib please PROTOCOL: AP(PA) and Lateral views were obtained. COMPARISON: None FINDINGS: AP and lateral views of the left tibia-fibula demonstrates fixation of the proximal tibia. Distal femoral fracture noted. There is degenerative change. Prior surgical tracks of the mid tibia. IMPRESSION: No acute ossific abnormality of the tibia and fibula. Distal femur fracture. Electronically signed: Mehul Maxwell. Transcribed by: [email or web address], User Resident: Electronically Signed by: MEHUL MAXWELL @ 01/07/2022 03:42 AM Normal The [facility] Comment on above: Order Comment: No: D o not add to previous draw PROTHROMBIN TIMEon INR Coag (PPP) [Relative time] 1.22 {INR} High 0.91-1.[address] [facility] Comment on above: Result Comment: ACCC P RECOMMENDED INR FOR WARFARIN THERAPY ------ ------- CONDITION INR PROPHYLAXIS OF VENOUS THROMBOSIS 2-3 (HIGH-RISK SURGERY) TREATMENT OF VENOUS THROMBOSIS 2-3 TREATMENT OF PULMONARY EMBOLISM 2-3 PREVENTION OF SYSTEMIC EMBOLISM: 2-3 ACUTE MYOCARDIAL INFARCTION TISSUE HEART VALVES VALVULAR HEART DISEASE ATRIAL FIBRILLATION RECURRENT SYSTEMIC EMBOLISM MECHANICAL HEART VALVE 2.5-3.5 FROM: ORAL ANTICOAGULANTS. MECHANISM OF ACTION, CLINICAL EFFECTIVENESS, AND OPTIMAL THERAPEUTIC RANGE. CHEST 1995;108:231S-246S. Performed By: #### 3 1400, 98325, 02235 #### [facility] [address] [place] [address], [facility] PT Coag (PPP) [Time] 15.4 s High 12.3-14.[address] [facility] Comment on above: Result Comment: ALL RESULTS MUST BE INTERPRETED WITH RESPECT TO BLOOD DRAWING ARTIFACT OR DILUTION ERROR OF ANTICOAGULANT AT THE TIME OF SAMPLING. Performed By: #### 3 1400, 11275, 09863 #### [facility] [address] [facility] [place] [place] [address], [facility] RBC'S 2 UNITSon 01-07-2022 CROSSMATCH INTERP 1 COMP Normal [facility] Comment on above: Performed By: #### 3 1400, 96416, 87584 #### [facility] [address] [place] [address], [facility] CROSSMATCH INTERP 2 COMP Normal [facility] Comment on above: Performed By: #### 3 1400, 37336, 81913 #### [facility] [address] [facility] [place] [address], [facility] PRODUCT CODE 1 E0336 Normal The [facility] Comment on above: Performed By: #### 3 1400, 13743, 93968 #### [facility] [address] [place] [address], [facility] PRODUCT CODE 2 E0336 Normal The [facility] Comment on above: Performed By: #### 3 1400, 10274, 50343 #### [facility] [address] [facility] [place] [address], [facility] PRODUCT STATUS 1 RE Normal The [facility] Comment on above: Result Comment: Resu lt changed by IF on 01/11/2022 08:57. The previous value was XM. Performed By: #### 3 1400, 50050, 67351 #### [facility] [address] [place] [address], [facility] PRODUCT STATUS 2 RE Normal [facility] Comment on above: Result Comment: Resu lt changed by IF on 01/11/2022 08:57. The previous value was XM. Performed By: #### 3 1400, 05202, 10705 #### [facility] [address] [place] [address], [facility] UNIT ABO 1 A Normal The [facility] Comment on above: Performed By: #### 3 1400, 54515, 73075 #### [facility] [address] [facility] [place] [address], [facility] UNIT ABO 2 A Normal The [facility] Comment on above: Performed By: #### 3 1400, 85497, 83914 #### [facility] [address] [facility] [place] [address], [facility] UNIT ID 1 [id number] Normal The [facility] Comment on above: Performed By: #### 3 1400, 25125, 97000 #### [facility] [address] [place] [address], [facility] UNIT ID 2 [id number] Normal [facility] Comment on above: Performed By: #### 3 1400, 04198, 20603 #### [facility] [address] [place] [address], [facility] UNIT RH 1 Positive Normal The [facility] Comment on above: Performed By: #### 3 1400, 21041, 73832 #### [facility] [address] [place] [address], [facility] UNIT RH 2 Positive Normal The [facility] Comment on above: Performed By: #### 3 1400, 23783, 76640 #### [facility] [address] SODIUM URINE RANDOMon 2021 Sodium (U) [Moles/Vol] 21 mmol/L Normal The [facility] Comment on above: Order Comment: Yes: Add to Previous draw if able Result Comment: Ther e are no established reference values for random urine specimens Performed By: #### 3 1400, 56176, 81910 #### [facility] [address] [place] [address], [facility] TYPE AND SCREENon 01-07-2022 ABO INTERPRETATION A Normal [facility] Comment on above: Performed By: #### 6 2586 #### [facility] [address] [place] [address], [facility] RH INTERPRETATION Positive Normal The [facility] Comment on above: Performed By: #### 6 2586 #### [facility] [address] [place] [address], [facility] VITAMIN D 25-HYDROXYon 01-07 VITAMIN D 25-OH 33.8 ng/mL Normal 30.0-80.0 The [facility] Comment on above: Result Comment: >80. 0 Toxicity possible Performed By: #### 0 0121, 97601, 68854 #### [facility] [address] [place] [address], [facility] Encounters Encounter Date Encounter Type Care Provider Facility Start: 12-08-2023 End: 12-08-2023 ambulatory RUBY AYON Not Available Start: 11-17-2023 End: 11-17-2023 ambulatory RUBY AYON Not Available Start: 08-02-2022 End: 08-03-[address] RUTH RODRIGUEZ Facility: Start: 03-30-2022 End: 04-01-2022 ambulatory NIKO [facility] Start: 01-07-2022 End: 01-09-2022 Evaluation and management of inpatient CR DELACRUZ Facility:[facility] Procedures Date Procedure Procedure Detail Performing Clinician Start: 01-07-2022 Antibody screen CR CRAWFORD Comment on above: Performed By: #### 6 2586 #### [facility] [address] Payers Date Payer Category Payer Private Health Insurance [id number] 2020 Unknown [id number] 1965 Unknown [id number] [id number] 1965 Unknown [id number] [id number] [id number] 1965 Unknown [id number] 2.16.84 [id number] 1965 Unknown [id number] [id number] [id number] 1959 Unknown [id number] Progress note 03-30-2022 Note Date & Type Note Facility 03-30-2022 Note [facility] Post-Op F/U Reported by patient. Location: right Associated Symptoms: no warmth; no ecchymosis; no drainage; no swelling; no fever Prior Imaging: x ray DATE OF SURGERY: 01/08/2022 SURGEON: Cr Delacruz M.D. PRE PROCEDURE DIAGNOSIS: Right intra-articular distal femur fracture. POSTPROCEDURE DIAGNOSIS: Right intra-articular distal femur fracture. PROCEDURE PERFORMED: Open reduction, internal fixation, right medial distal femoral condyle. ASSISTANTS: 1. Jonas Geller MD, PGY-5. 2. Jett Carty MD, PGY-4. 3. Theo Khan MD, PGY-2. ANESTHESIA: General, endotracheal tube. FLUIDS: Please see anesthesia report. ESTIMATED BLOOD LOSS: 50 mL. IMPLANTS: 1. Synthes 8-hole 1/3 semi tubular plate with associated 6.5 mm cancellous and 4.5 mm cortical screws of appropriate lengths. EXPLANTS: None. SPECIMENS: None. ROS None recorded. Physical Exam Post Operative Exam: General Appearance: no swelling or tenderness and wound clean and dry and neurovascular intact; calf soft and nontender bilateral. Procedure Documentation None recorded. Assessment / Plan Diagnosis Plan 1. Closed comminuted intra-articular fracture of distal femur, right, with routine healing, subsequent encounter [facility]LE PT ROM Dr Delacruz was present and provided plan of care f/u in 4 weeks with new xrays [facility] Discharge summary note 02-04-2022 Note Date & Type Note Facility 02-04-2022 Note MR#: [id number] [facility] Pt. Name: Bernadine Bhakta Admitted: 01/07/2022 Discharged: 01/09/2022 Date of : 1965 Physician: Cr Delacruz M.D. DISCHARGE SUMMARY PRIMARY DIAGNOSIS: Right intra-articular distal femur fracture. SECONDARY DIAGNOSES: 1. Hypertension. 2. Diabetes. 3. Hyperlipidemia. 4. Chronic anxiety disorder. DESCRIPTION OF HOSPITAL STAY: The patient is a 56-year-old female, who presented to [facility] for operative stabilization of a right intra-articular distal femur fracture after a fall. She was seen in the emergency department, where x-rays were obtained demonstrating this fracture. Informed written consent was obtained at the time of evaluation. The next morning, she underwent operative stabilization of the fracture. Postoperatively, she was made nonweightbearing and worked with Physical Therapy and Occupational Therapy. She was also treated with IV and oral narcotic pain medication, prophylactic antibiotics and IV fluids while she was n.p.o. After appropriate recovery, she was able to be discharged home. DISCHARGE DISPOSITION AND CONDITION ON DISCHARGE: The patient was discharged home in stable condition. DISCHARGE INSTRUCTIONS: Patient will be nonweightbearing to the operative extremity for approximately 8-12 weeks depending on fracture healing. She will take aspirin 325 twice daily for DVT prophylaxis. She was discharged with a short course of oral narcotic pain medication. She will also not be ready to drive until cleared by clinic. We will see the patient in approximately 2 weeks for wound evaluation and suture removal. Electronically Signed by: Cr Delacruz M.D. 02/05/2022 05:07 P Cr Delacruz M.D. I personally saw this patient on the day of the encounter, performed the mckeon portion(s) of the service and participated in the management and confirm the resident's documentation. Please note there may be an additional personal documentation from me. Date Dict: 02/03/2022/02:21 P/Jett Carty MD Date Trans: 02/04/2022 12:45 P/mmo [id number] cc: Ruth Rodriguez M.D. [facility] [address] [facility] [address] [facility] Summary Purpose Family History No Family History Records FoundNo Family History Records FoundNo Family History Records FoundNo Family History Records Found Advance Directives No Advanced Directives Records FoundNo Advanced Directives Records FoundNo Advanced Directives Records FoundNo Advanced Directives Records Found Additional Source Comments INFORMATION SOURCE (unrecogn ized section and content) DATE CREATED AUTHOR 02/16/2022 [facility] DATE CREATED AUTHOR AUTHOR'S ORGANIZ ATION 04/17/2022 [facility] DATE CREATED AUTHOR AUTHOR'S ORGANIZ ATION 11/03/2022 [facility] DATE CREATED AUTHOR AUTHOR'S ORGANIZ ATION 12/10/2023 [facility] EPIC FOR RECORDS PERTAINING TO PATIENTS WHO ARE OR HAVE BEEN ENROLLED IN A CHEMICAL DEPENDENCY/SUBSTANCEABUSE PROGRAM, SOME INFORMATION MAY BE OMITTED. This clinical summary was aggregated from multiple sources. Caution should be exercised in using it in the provision of clinical care. This summary normalizes information from multiple sources, and as a consequence, information in this document may materially change the coding, format and clinical context of patient data. In addition, data may be omitted in some cases. CLINICAL DECISIONS SHOULD BE BASED ON THE PRIMARY CLINICAL RECORDS. [facility] [employer] provides no warranty or guarantee of the accuracy or completeness of information in this document.
--- NOTE | 2024-01-11 09:53 | US_ITS ---
[address] [address] Patient Name: KYLEIGH BHAKTA MRN: [id number] date: 1965 Sex: F Assigned Patient Location: US Current Patient Location: US Accession/Order Number: [id number] Exam Date: 01/11/2024 09:55 Report Date: 01/11/2024 11:04 At the request of: RUBY AYON Procedure: US right upper quadrant EXAM: US right upper quadrant HISTORY: Gallbladder Sludge K82.8 COMPARISON: 12/05/2023 TECHNIQUE: Transabdominal imaging FINDINGS: The liver is small in size measuring 15.3 cm in length, heterogeneous echogenic echotexture with nodular contour. Hepatopedal flow in the main portal vein with a velocity of 26 cm/s. The gallbladder wall measures 3.2 mm, mildly thickened. Negative sonographic Pettit sign. The common bile duct measures 4.6 mm. Echogenic material is identified within the gallbladder lumen without definitive color flow The visualized pancreas is normal The right kidney is normal measuring 12.3 x 6.9 x 5.3 cm Moderate ascites US/US right upper quadrant IMPRESSION: Echogenic nodular small liver consistent with cirrhosis with associated ascites Indeterminate soft tissue tissue echogenicity within the gallbladder lumen. No color flow to suggest a mass Electronically authenticated by: JIN SIBLEY Date: 01/11/2024 11:04
== END 2024-01-11 09:48 | disposition home or self-care (01) ==
LOC: US 09:47
PROVIDERS: PCP Family Medicine; Visit Provider Nurse Practitioner Family
DX: K82.8 Other specified diseases of gallbladder (principal); K74.60 Unspecified cirrhosis of liver; R18.8 Other ascites
CPT/HCPCS: 76705

== ENCOUNTER 2024-07-24 17:51 | Emergency (ER) | payer OTHER, SELFPAY ==
[2024-07-24 17:55] VITALS: BP 164/101; PULSE 89; TEMP 36.8; O2SAT 99; BMI 24.0
--- OUTSIDE RECORDS SUMMARY | 2024-07-24 17:56 | XMS_ITS | CCD ---
Author Organization [facility] CliniSypr Care Team Providers Care Race Starter Name Role Phone BECK DELACRUZ Attending Unavailable SELF, REFERRED Referring Unavailable JENNIFERBRYSON Primary Care Unavailable BECK DELACRUZ Admitting Unavailable JENNIFER, DR MASSEY Admitting Unavailable JENNIFER, DR MASSEY Primary Care Unavailable JENNIFER, DR MASSEY Consulting Unavailable JENNIFER, DR MASSEY Attending Unavailable WEST, DR JIN Martinez Consulting Unavailable RUBY AYON Attending Unavailable RUBY AYON Attending Unavailable SERENE ZELAYA Attending Unavailable SERENE ZELAYA Attending Unavailable SERENE ZELAYA Attending Unavailable Ly, MD PSYCHIATRY-C Serene Primary Care Provider MD Wes Hadley Attending Provider Hemmer, AINSLEY-C Serene Attending Provider [phone] Ly MD PSYCHIATRY-Serene Carlin Primary Care Provider [phone] Wes Hadley MD Attending Provider [phone] Hemmartín MD PSYCHIATRY-Serene Carlin Attending Provider [phone] Bryson Rodriguez MD Primary Care Provider [phone] Ly MD PSYCHIATRY-Serene Carlin Primary Care Provider Wes Hadley MD Attending Provider [phone] Wes Hadley Admitting Unavailable Wes Hadley Attending Unavailable HemSerene resendiz Primary Care Unavailable Wes Hadley Attending Unavailable Wes Hadley Admitting Unavailable Serene Zelaya Primary Care Unavailable Serene Zelaya Admitting Unavailable Serene Zelaya Primary Care Unavailable Serene Zelaya Attending Unavailable Wes Hadley Admitting Unavailable Wes Hadley Attending Unavailable Hemmer Serene Primary Care Unavailable Wes Hadley Admitting Unavailable Wes Hadley Attending Unavailable Serene Zelaya Primary Care Unavailable Medications Current Medications Medication Drug Class(es) Dates Sig (Normalized) Sig (Original) calcium carbonate 1500 mg oral tablet (3 sources) Start: 03-28-2024 take 1 tablet by mouth once daily Calcium Carbonate (Calcium 600) 600 mg calcium (1,500 mg) tablet Active 600 MG PO Daily March 27, 2024 11:00pm calcium citrate 1040 mg oral tablet (8 sources) take 2 tablets by mouth in the morning, then take 2 tablets by mouth in the evening, then take 2 tablets by mouth at bedtime calcium citrate 1040 MG tablet Take 2 tablets by mouth in the morning and 2 tablets in the evening and 2 tablets before bedtime. Active carvedilol 3.125 mg oral tablet (3 sources) alpha-Adrenergi c Ghada, beta-Adrenergic Ghada Start: 05-01-2024 End: 06-28-2024 take 1 tablet by mouth twice daily at mealtime Carvedilol 3.125 mg tablet Active 3.125 MG PO Twice daily June 28, 2024 1:53pm must administer with a meal/food cholecalciferol 0.025 mg oral capsule (11 sources) Vitamin D Start: 03-28-2024 take 1 capsule by mouth once daily Cholecalciferol (Vitamin D3) (Vitamin D3) 25 mcg (1,000 unit) capsule Active 1000 UNIT PO Daily March 27, 2024 11:00pm take 1 capsule by mouth once sury ly cholecalciferol (Vitamin D-3) 50 MCG (2000 UT) capsule Take 1 capsule by mouth 1 (one) time each day at the same time. Active docosahexaenoic acid 120 mg / eicosapentaenoic acid 180 mg oral capsule (8 sources) take 1 capsule by mouth once daily omega-3 (Fish Oil) 1000 MG capsule Take 1 capsule by mouth 1 (one) time each day at the same time. Active docusate sodium 100 mg oral capsule (11 sources) Start: 03-28-2024 take 1 capsule by mouth once daily Docusate Sodium (Col-Rite) 100 mg capsule Active 100 MG PO Daily March 27, 2024 11:00pm take 1 capsule by [facility] every twenty-four hours as needed for constipation docusate sodium (Colace) 100 MG capsule Take 1 capsule by mouth Daily as needed for constipation. Active famotidine 20 mg oral tablet (11 sources) Histamine-2 Receptor Antagonist Start: 03-28-2024 take 1 tablet by mouth once daily at bedtime Famotidine 20 mg tablet Active 20 MG PO Daily at bedtime March 27, 2024 11:00pm take 1 tablet by mouth at bedtim e famotidine (Pepcid) 20 MG tablet Take 20 mg by mouth at bedtime Active folic acid 0.8 mg oral capsule (3 sources) Start: 03-28-2024 take 8 capsules by mouth once daily Folic Acid (Fa-8) 0.8 mg capsule Active 800 MCG PO Daily March 27, 2024 11:00pm furosemide 40 mg oral tablet (20 sources) Loop Diuretic Start: 02-23-2024 End: 06-28-2024 take 1 tablet by mouth once daily Furosemide 40 mg tablet Active 40 MG PO Daily June 28, 2024 1:53pm Start: 02-08-2024 End: 02-23-2024 take 1 tablet by mouth once daily Furosemide 20 mg tablet Discontinued 20 MG PO Daily February 22, 2024 11:00pm February 23, 2024 12:48pm hydrocortisone acetate 25 mg rectal suppository (3 sources) Corticosteroid Start: 01-31-2024 End: 02-10-2024 hydrocortisone (Anusol-HC) 25 MG suppository Indications: Internal hemorrhoids Insert 1 suppository (25 mg) into the rectum in the morning and 1 suppository (25 mg) before bedtime. Do all this for 10 days. 20 suppository 01/31/2024 02/10/2024 Active osmotic 24 hr metFORMIN hydrochloride 500 mg extended release oral tablet (13 sources) Biguanide Start: 02-23-2024 take 1000 mg by mouth once daily Metformin Active 1000 MG PO Daily February 23, 2024 12:00am Start: 01-19-2024 take 1 tablet by nicolle once daily Metformin 500 mg tablet extended release 24hr Active 1000 MG PO Daily February 22, 2024 11:00pm metOLazone 5 mg oral tablet (4 sources) Thiazide-like Diuretic Start: 02-15-2024 End: 02-20-2024 take 1 tablet by mouth once daily metOLazone (Zaroxolyn) 5 MG tablet Indications: Generalized edema Take 1 tablet (5 mg) by mouth Daily for 5 days 5 tablet 02/15/2024 Active Multiple Vitamin (Multi Vitamin) tablet (8 sources) take 1 tablet by mouth once daily Multiple Vitamin (Multi Vitamin) tablet Take 1 tablet by mouth 1 (one) time each day at the same time. Active Multivit With Min-Folic Acid (One Daily Womens 50 Plus) 0.4 mg tablet (3 sources) Start: 03-28-2024 take 1 tablet by mouth once daily Multivit With Min-Folic Acid (One Daily Womens 50 Plus) 0.4 mg tablet Active 1 TAB PO Daily March 27, 2024 11:00pm Start: 03-28-2024 take 1 tablet by nicolle th once daily Multivit With Min-Folic Acid (One Daily Womens 50 Plus) 0.4 mg tablet Active 1 TAB PO Daily March 28, 2024 12:00am spironolactone 100 mg oral tablet (9 sources) Aldosterone Antagonist Start: 02-23-2024 End: 06-28-2024 take 1 tablet by mouth once daily Spironolactone 100 mg tablet Active 100 MG PO Daily June 28, 2024 1:53pm Start: 01-31-2024 End: 02-08-2024 take 1 tablet by mouth once daily spironolactone (Aldactone) 25 MG tablet Indications: Generalized edema Take 1 tablet (25 mg) by mouth Daily 30 tablet 2 01/31/2024 02/08/2024 Discontinued (Ineffective) vitamin b12 1 mg oral tablet (11 sources) Vitamin B12 Start: 03-28-2024 take 1 tablet by mouth once daily Cyanocobalamin (Vitamin B-12) (Vitamin B-12) 1,000 mcg tablet Active 1000 MCG PO Daily March 27, 2024 11:00pm take 1 tablet by mouth in the mo rning cyanocobalamin (Vitamin B-12) 100 MCG tablet Take 1 tablet by mouth in the morning. Active Completed/Discontinued Medications Medication Drug Class(es) Dates Sig (Normalized) Sig (Original) gabapentin 100 mg oral capsule (13 sources) Anti-epileptic Agent Start: 02-23-2024 End: 03-28-2024 take 1 capsule by mouth once daily Gabapentin 100 mg capsule Discontinued 100 MG PO Daily February 22, 2024 11:00pm March 28, 2024 9:01am Start: 11-17-2023 End: 11-16-2024 take 1 capsule by mouth every eight hours gabapentin (Neurontin) 100 MG capsule Indications: Neuropathy Take 1 capsule (100 mg) by mouth every 8 (eight) hours 90 capsule 2 11/17/2023 11/16/2024 Active potassium chloride 20 meq powder for oral solution (12 sources) Start: 02-23-2024 End: 03-28-2024 take 20 mEq by mouth once Potassium Chloride (Klor-Con) 20 mEq packet Discontinued 20 MEQ PO Once February 22, 2024 11:00pm March 28, 2024 9:02am Start: 02-08-2024 take 20 mEq by mouth once daily potassium chloride (Klor-Con) 20 MEQ packet Indications: Generalized edema Take 20 mEq by mouth Daily 30 packet 2 02/08/2024 Active Problems Active Problems Problem Classification Problem Date Documented Da te Episodic/Chronic Alcohol-related disorders (20 sources) Alcoholic cirrhosis; Translations: [Alcoholic cirrhosis of liver without ascites] Onset: 02-28-2023 02-23-2024 Chronic Coronary atherosclerosis and other heart disease (8 sources) Disorder of cardiovascular system; Translations: [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] Onset: 02-20-2013 03-01-2023 Chronic Disorders of lipid metabolism (16 sources) Hypertriglyceridemia ; Translations: [Pure hyperglyceridemia] Onset: 02-28-2023 02-28-2023 Chronic Epilepsy; convulsions (8 sources) Epilepsy; Translations: [Epilepsy, unspecified, not intractable, without status epilepticus] Onset: 08-01-2013 03-01-2023 Chronic Gastroduodenal ulcer (except hemorrhage) (8 sources) Ulcer of duodenum; Translations: [Duodenal ulcer, unspecified as acute or chronic, without hemorrhage or perforation] Onset: 02-28-2023 02-28-2023 Chronic Menopausal disorders (8 sources) Decreased estrogen level; Translations: [Other primary ovarian failure] Onset: 02-28-2023 02-28-2023 Chronic Osteoarthritis (16 sources) Osteoarthritis of knee; Translations: [Osteoarthritis of knee, unspecified] Onset: 02-28-2023 02-28-2023 Chronic Osteoporosis (8 sources) Osteoporosis; Translations: [Age-related osteoporosis without current pathological fracture] Onset: 02-28-2023 02-28-2023 Chronic Other acquired deformities (8 sources) Scoliosis deformity of spine; Translations: [Scoliosis, unspecified] Onset: 02-28-2023 02-28-2023 Chronic Other gastrointestinal disorders (5 sources) Ascites; Translations: [Other ascites] 02-23-2024 Episodic Other hematologic conditions (8 sources) Macrocytosis; Translations: [Other specified diseases of blood and blood-forming organs] Onset: 02-28-2023 02-28-2023 Chronic Other hematologic conditions (8 sources) Macrocytosis - no anemia; Translations: [Other specified diseases of blood and blood-forming organs] Onset: 05-17-2017 03-01-2023 Chronic Other liver diseases (8 sources) Disease of liver; Translations: [Liver disease, unspecified] Onset: 10-11-2017 03-01-2023 Chronic Other liver diseases (15 sources) Elevated liver enzymes level; Translations: [Abnormal levels of other serum enzymes] Onset: 01-31-2024 02-23-2024 Episodic Other liver diseases (6 sources) Abnormal levels of other serum enzymes; Translations: [Other nonspecific abnormal serum enzyme levels] Onset: 06-28-2024 02-23-2024 Episodic Spondylosis; intervertebral disc disorders; other back problems (16 sources) Degeneration of lumbar intervertebral disc; Translations: [Other intervertebral disc degeneration, lumbar region] Onset: 02-28-2023 02-28-2023 Chronic Past or Other Problems Problem Classification Problem Date Documented Da te Episodic/Chronic Biliary tract disease (8 sources) Cholelithiasis AND cholecystitis without obstruction; Translations: [Calculus of gallbladder with chronic cholecystitis without obstruction] Onset: 3 02-28-2023 Episodic Deficiency and other anemia (8 sources) Anemia; Translations: [Anemia, unspecified] Onset: 3 02-28-2023 Episodic Deficiency and other anemia (8 sources) Iron deficiency anemia; Translations: [Iron deficiency anemia, unspecified] Onset: 8 03-01-2023 Episodic Diabetes mellitus without complication (8 sources) Impaired glucose tolerance; Translations: [Impaired glucose tolerance (oral)] Onset: 3 02-28-2023 Episodic Epilepsy; convulsions (8 sources) Seizure; Translations: [Unspecified convulsions] Onset: 4 03-01-2023 Episodic Fracture of lower limb (16 sources) Closed fracture distal femur, comminuted/intra-artic ular; Translations: [Other fracture of lower end of right femur, subsequent encounter for closed fracture with routine healing] Onset: 3 03-01-2023 Episodic Fracture of neck of femur (hip) (8 sources) Closed intertrochanteric fracture; Translations: [Displaced intertrochanteric fracture of unspecified femur, initial encounter for closed fracture] Onset: 3 03-01-2023 Episodic Gastrointestinal hemorrhage (8 sources) Hemorrhage of rectum and anus; Translations: [Hemorrhage of anus and rectum] Onset: 4 03-01-2023 Episodic Hemorrhoids (16 sources) Bleeding internal hemorrhoids; Translations: [Other hemorrhoids] Onset: 4 03-01-2023 Episodic Other circulatory disease (8 sources) Elevated blood-pressure reading without diagnosis of hypertension; Translations: [Elevated blood-pressure reading, without diagnosis of hypertension] Onset: 3 02-28-2023 Episodic Other fractures (8 sources) Closed fracture of acetabulum; Translations: [Unspecified fracture of unspecified acetabulum, initial encounter for closed fracture] Onset: 4 03-01-2023 Episodic Other gastrointestinal disorders (9 sources) Other ascites; Translations: [Other ascites] Onset: 4 02-23-2024 Episodic Other gastrointestinal disorders (4 sources) Swollen abdomen; Translations: [Abdominal distension (gaseous)] 02-08-2024 Episodic Other hematologic conditions (8 sources) H/O: anemia - iron deficient; Translations: [Personal history of diseases of the blood and blood-forming organs and certain disorders involving the immune mechanism] Onset: 7 03-01-2023 Episodic Other non-traumatic joint disorders (8 sources) Trochanteric bursitis; Translations: [Pain in unspecified hip] Onset: 3 03-01-2023 Episodic Other screening for suspected conditions (not mental disorders or infectious disease) (13 sources) Encounter for screening mammogram for malignant neoplasm of breast; Translations: [Electrocardiogram abnormal] Onset: 4 Episodic Residual codes; unclassified (12 sources) Edema, generalized; Translations: [Generalized edema] Onset: 4 01-31-2024 Episodic Residual codes; unclassified (8 sources) Current drinker; Translations: [Other specified health status] Onset: 7 Resolved: 4 01-31-2024 Episodic Results Test Name Value Interpretation Reference Range Facility AFP Tumor Marker, Serumon AFP Tumor Marker, Serum 6.0 ng/mL Normal 0.0-9.2 [facility] Comment on above: Result Comment: [employer] [facility] Electrochemiluminescence Immunoassay (ECLIA) Values obtained with different assay methods or kits cannot be used interchangeably. Results cannot be interpreted as absolute evidence of the presence or absence of malignant disease. This test is not interpretable in females. Performed at: [facility] [id number] Burning Plant Operator: Gonzales Poe PhD, Phone: [phone] PERFORMED BY: [place] [address] PATHOLOGIST SCARFING MACHINE OPERATOR CARL KWAN M.D. Performed By: #### H BSAG, SMAB, CERULOP, HBSAB, ALPHA PHEN, HBCAB, HCV RX PCR, NIYA CHOICE #### [facility] , #### PT, HEPATIC, CBC, LIPID, FE and TIBC, ALLYSON #### [address] Alanine aminotransferase [En zymatic activity/volume] in Serum or PlasmaOrdered By: Wes Hadley on 06-28-2024 ALT [Catalytic activity/Vol] Alanine aminotransferase [Enzymatic activity/volume] in Serum or Plasma [facility] Albumin [Mass/volume] in Ser um or Plasma by Bromocresol green (BCG) dye binding methoOrdered By: Wes Hadley on 06-28-2024 Albumin BCG dye [Mass/Vol] Albumin [Mass/volume] in Serum or Plasma by Bromocresol green (BCG) dye binding metho 3.5-5.7 [facility] Alkaline phosphatase [Enzyma tic activity/volume] in Serum or PlasmaOrdered By: Wes Hadley on 06-28-2024 ALP [Catalytic activity/Vol] Alkaline phosphatase [Enzymatic activity/volume] in Serum or Plasma 34-104 [facility] Aspartate aminotransferase [ Enzymatic activity/volume] in Serum or PlasmaOrdered By: Wes Hadley on 06-28-2024 AST [Catalytic activity/Vol] Aspartate aminotransferase [Enzymatic activity/volume] in Serum or Plasma 13-39 [facility] Basophils Auto (Bld) [#/Vol] Ordered By: Wes Hadley on 06-28-2024 Basophils (Bld) [#/Vol] Automated basophil count 0.0-0.2 [facility] Basophils/100 WBC Auto (Bld) Ordered By: Wes Hadley on 06-28-2024 Basophils/100 WBC (Bld) Automated basophil % . [facility] Bilirubin.total [Mass/volume ] in Serum or PlasmaOrdered By: Wes Hadley on 06-28-2024 Bilirubin [Mass/Vol] Bilirubin.total [Mass/volume] in Serum or Plasma High 0.3-1.0 [facility] Comment on above: Samples from patient s who have taken Naproxen have shown spurious elevation in Total Bilirubin levels. A metabolite of Naproxen, O-desmethylnaproxen, has been shown to interfere with the [place]-Melo method for measuring Total Bilirubin. Calcium [Mass/volume] in Ser um or PlasmaOrdered By: Wes Hadley on 06-28-2024 Calcium [Mass/Vol] Calcium [Mass/volume ] in Serum or Plasma 8.6-10.3 [facility] Carbon dioxide, total [Moles /volume] in Serum or PlasmaOrdered By: Wes Hadley on 06-28-2024 CO2 [Moles/Vol] Carbon dioxide, tota l [Moles/volume] in Serum or Plasma 21.0-31.0 [facility] Chloride [Moles/volume] in S warner or PlasmaOrdered By: Wes Hadley on 06-28-2024 Chloride [Moles/Vol] Chloride [Moles/vol ume] in Serum or Plasma Low 98-107 [facility] Complete Blood Count Auto Di ffon 06-28-2024 Basophils (Bld) [#/Vol] 0.0 10*3/uL Normal 0.0-0.2 [facility] Comment on above: Result Comment: PERF ORMED BY: [place] [address] PATHOLOGIST SCARFING MACHINE OPERATOR CARL KWAN M.D. Performed By: #### H BSAG, SMAB, CERULOP, HBSAB, ALPHA PHEN, HBCAB, HCV RX PCR, NIYA CHOICE #### [facility] , #### PT, HEPATIC, CBC, LIPID, FE and TIBC, ALLYSON #### [address] Basophils/100 WBC (Bld) 1.1 % Normal . [facility] Comment on above: Performed By: #### H BSAG, SMAB, CERULOP, HBSAB, ALPHA PHEN, HBCAB, HCV RX PCR, NIYA CHOICE #### [facility] , #### PT, HEPATIC, CBC, LIPID, FE and TIBC, ALLYSON #### [address] Eosinophils (Bld) [#/Vol] 0.1 10*3/uL Normal 0.0-0.45 [facility] Comment on above: Performed By: #### H BSAG, SMAB, CERULOP, HBSAB, ALPHA PHEN, HBCAB, HCV RX PCR, NIYA CHOICE #### [facility] , #### PT, HEPATIC, CBC, LIPID, FE and TIBC, ALLYSON #### [address] Eosinophils/100 WBC (Bld) 3.4 % Normal . [facility] Comment on above: Performed By: #### H BSAG, SMAB, CERULOP, HBSAB, ALPHA PHEN, HBCAB, HCV RX PCR, NIYA CHOICE #### [facility] , #### PT, HEPATIC, CBC, LIPID, FE and TIBC, ALLYSON #### [address] Erythrocyte distribution width (RBC) [Ratio] 14.9 % Normal 11.9-15.3 [facility] Comment on above: Performed By: #### H BSAG, SMAB, CERULOP, HBSAB, ALPHA PHEN, HBCAB, HCV RX PCR, NIYA CHOICE #### [facility] , #### PT, HEPATIC, CBC, LIPID, FE and TIBC, ALLYSON #### [address] Hematocrit (Bld) [Volume fraction] 34.4 % Normal 34.0-46.4 [facility] Comment on above: Performed By: #### H BSAG, SMAB, CERULOP, HBSAB, ALPHA PHEN, HBCAB, HCV RX PCR, NIYA CHOICE #### [facility] , #### PT, HEPATIC, CBC, LIPID, FE and TIBC, ALLYSON #### [address] Hemoglobin (Bld) [Mass/Vol] 11.8 g/dL Normal 11.8-15.4 [facility] Comment on above: Performed By: #### H BSAG, SMAB, CERULOP, HBSAB, ALPHA PHEN, HBCAB, HCV RX PCR, NIYA CHOICE #### [facility] , #### PT, HEPATIC, CBC, LIPID, FE and TIBC, ALLYSON #### [address] Lymphocytes (Bld) [#/Vol] 0.9 10*3/uL Low 1.00-4.8 [facility] Comment on above: Performed By: #### H BSAG, SMAB, CERULOP, HBSAB, ALPHA PHEN, HBCAB, HCV RX PCR, NIYA CHOICE #### [facility] , #### PT, HEPATIC, CBC, LIPID, FE and TIBC, ALLYSON #### [address] Lymphocytes/100 WBC (Bld) 25.5 % Normal . [facility] Comment on above: Performed By: #### H BSAG, SMAB, CERULOP, HBSAB, ALPHA PHEN, HBCAB, HCV RX PCR, NIYA CHOICE #### [facility] , #### PT, HEPATIC, CBC, LIPID, FE and TIBC, ALLYSON #### [address] MCH (RBC) [Entitic mass] 30.1 pg Normal 24.7-34.3 [facility] Comment on above: Performed By: #### H BSAG, SMAB, CERULOP, HBSAB, ALPHA PHEN, HBCAB, HCV RX PCR, NIYA CHOICE #### [facility] , #### PT, HEPATIC, CBC, LIPID, FE and TIBC, ALLYSON #### [address] MCV (RBC) [Entitic vol] 87.7 fL Normal 80-100 [facility] Comment on above: Performed By: #### H BSAG, SMAB, CERULOP, HBSAB, ALPHA PHEN, HBCAB, HCV RX PCR, NIYA CHOICE #### [facility] , #### PT, HEPATIC, CBC, LIPID, FE and TIBC, ALLYSON #### [address] Mean Corpuscular HGB Conc 34.3 g/dL Normal 32.0-35.0 [facility] Comment on above: Performed By: #### H BSAG, SMAB, CERULOP, HBSAB, ALPHA PHEN, HBCAB, HCV RX PCR, NIYA CHOICE #### [facility] , #### PT, HEPATIC, CBC, LIPID, FE and TIBC, ALLYSON #### [address] Monocytes (Bld) [#/Vol] 0.5 10*3/uL Normal 0.0-0.8 [facility] Comment on above: Performed By: #### H BSAG, SMAB, CERULOP, HBSAB, ALPHA PHEN, HBCAB, HCV RX PCR, NIYA CHOICE #### [facility] , #### PT, HEPATIC, CBC, LIPID, FE and TIBC, ALLYSON #### [address] Monocytes/100 WBC (Bld) 12.9 % Normal . [facility] Comment on above: Performed By: #### H BSAG, SMAB, CERULOP, HBSAB, ALPHA PHEN, HBCAB, HCV RX PCR, NIYA CHOICE #### [facility] , #### PT, HEPATIC, CBC, LIPID, FE and TIBC, ALLYSON #### [address] Neutrophils (Bld) [#/Vol] 2.1 10*3/uL Normal 1.8-7.7 [facility] Comment on above: Performed By: #### H BSAG, SMAB, CERULOP, HBSAB, ALPHA PHEN, HBCAB, HCV RX PCR, NIYA CHOICE #### [facility] , #### PT, HEPATIC, CBC, LIPID, FE and TIBC, ALLYSON #### [address] Neutrophils/100 WBC (Bld) 57.1 % Normal . [facility] Comment on above: Performed By: #### H BSAG, SMAB, CERULOP, HBSAB, ALPHA PHEN, HBCAB, HCV RX PCR, NIYA CHOICE #### [facility] , #### PT, HEPATIC, CBC, LIPID, FE and TIBC, ALLYSON #### [address] NRBC% 0.2 /100{WBC} Normal 0-0.5 [facility] Comment on above: Performed By: #### H BSAG, SMAB, CERULOP, HBSAB, ALPHA PHEN, HBCAB, HCV RX PCR, NIYA CHOICE #### [facility] , #### PT, HEPATIC, CBC, LIPID, FE and TIBC, ALLYSON #### [address] Platelet mean volume (Bld) [Entitic vol] 8.3 fL Normal 6.3-10.7 [facility] Comment on above: Performed By: #### H BSAG, SMAB, CERULOP, HBSAB, ALPHA PHEN, HBCAB, HCV RX PCR, NIYA CHOICE #### [facility] , #### PT, HEPATIC, CBC, LIPID, FE and TIBC, ALLYSON #### [address] Platelets (Bld) [#/Vol] 137 10*3/uL Low 150-450 [facility] Comment on above: Performed By: #### H BSAG, SMAB, CERULOP, HBSAB, ALPHA PHEN, HBCAB, HCV RX PCR, NIYA CHOICE #### [facility] , #### PT, HEPATIC, CBC, LIPID, FE and TIBC, ALLYSON #### [address] RBC (Bld) [#/Vol] 3.92 10*6/uL Normal 3.60-5.00 [facility] Comment on above: Performed By: #### H BSAG, SMAB, CERULOP, HBSAB, ALPHA PHEN, HBCAB, HCV RX PCR, NIYA CHOICE #### [facility] , #### PT, HEPATIC, CBC, LIPID, FE and TIBC, ALLYSON #### [address] WBC (Bld) [#/Vol] 3.6 10*3/uL Low 3.8-11.6 [facility] Comment on above: Performed By: #### H BSAG, SMAB, CERULOP, HBSAB, ALPHA PHEN, HBCAB, HCV RX PCR, NIYA CHOICE #### [facility] , #### PT, HEPATIC, CBC, LIPID, FE and TIBC, ALLYSON #### [address] Comprehensive Metabolic Pane eli 06-28-2024 Albumin [Mass/Vol] 3.8 g/dL Normal 3.5-5.7 [facility] Comment on above: Performed By: #### H BSAG, SMAB, CERULOP, HBSAB, ALPHA PHEN, HBCAB, HCV RX PCR, NIYA CHOICE #### [facility] , #### PT, HEPATIC, CBC, LIPID, FE and TIBC, ALLYSON #### [address] Albumin/Globulin [Mass ratio] 1.3 {ratio} Normal [facility] Comment on above: Performed By: #### H BSAG, SMAB, CERULOP, HBSAB, ALPHA PHEN, HBCAB, HCV RX PCR, NIYA CHOICE #### [facility] , #### PT, HEPATIC, CBC, LIPID, FE and TIBC, ALLYSON #### [address] ALP [Catalytic activity/Vol] 92 U/L Normal 34-104 [facility] [facility] Comment on above: Result Comment: PERF ORMED BY: [place] [address] PATHOLOGIST SCARFING MACHINE OPERATOR CARL KWAN M.D. Performed By: #### H BSAG, SMAB, CERULOP, HBSAB, ALPHA PHEN, HBCAB, HCV RX PCR, NIYA CHOICE #### [facility] , #### PT, HEPATIC, CBC, LIPID, FE and TIBC, ALLYSON #### [address] ALT [Catalytic activity/Vol] 17 U/L Normal 7-52 [facility] Comment on above: Performed By: #### H BSAG, SMAB, CERULOP, HBSAB, ALPHA PHEN, HBCAB, HCV RX PCR, NIYA CHOICE #### [facility] , #### PT, HEPATIC, CBC, LIPID, FE and TIBC, ALLYSON #### [address] Anion gap [Moles/Vol] 11.9 mmol/L Normal 6.0-15.0 [facility] Comment on above: Performed By: #### H BSAG, SMAB, CERULOP, HBSAB, ALPHA PHEN, HBCAB, HCV RX PCR, NIYA CHOICE #### [facility] , #### PT, HEPATIC, CBC, LIPID, FE and TIBC, ALLYSON #### [address] AST [Catalytic activity/Vol] 34 U/L Normal 13-39 [facility] Comment on above: Performed By: #### H BSAG, SMAB, CERULOP, HBSAB, ALPHA PHEN, HBCAB, HCV RX PCR, NIYA CHOICE #### [facility] , #### PT, HEPATIC, CBC, LIPID, FE and TIBC, ALLYSON #### [address] Bilirubin [Mass/Vol] 1.4 mg/dL High 0.3-1.0 [facility] Comment on above: Result Comment: Samp les from patients who have taken Naproxen have shown spurious elevation in Total Bilirubin levels. A metabolite of Naproxen, O-desmethylnaproxen, has been shown to interfere with the Jendrassik-Grof method for measuring Total Bilirubin. Performed By: #### H BSAG, SMAB, CERULOP, HBSAB, ALPHA PHEN, HBCAB, HCV RX PCR, NIYA CHOICE #### [facility] , #### PT, HEPATIC, CBC, LIPID, FE and TIBC, ALLYSON #### [address] Calcium [Mass/Vol] 9.8 mg/dL Normal 8.6-10.3 [facility] Comment on above: Performed By: #### H BSAG, SMAB, CERULOP, HBSAB, ALPHA PHEN, HBCAB, HCV RX PCR, NIYA CHOICE #### [facility] , #### PT, HEPATIC, CBC, LIPID, FE and TIBC, ALLYSON #### [place] [address] [place] Chloride [Moles/Vol] 95 mmol/L Low 98-107 [facility] Comment on above: Performed By: #### H BSAG, SMAB, CERULOP, HBSAB, ALPHA PHEN, HBCAB, HCV RX PCR, NIYA CHOICE #### [facility] , #### PT, HEPATIC, CBC, LIPID, FE and TIBC, ALLYSON #### [address] CO2 [Moles/Vol] 26.3 mmol/L Normal 21.0-31.0 [facility] Comment on above: Performed By: #### H BSAG, SMAB, CERULOP, HBSAB, ALPHA PHEN, HBCAB, HCV RX PCR, NIYA CHOICE #### [facility] , #### PT, HEPATIC, CBC, LIPID, FE and TIBC, ALLYSON #### [address] Creatinine [Mass/Vol] 0.60 mg/dL Normal 0.60-1.20 [facility] Comment on above: Performed By: #### H BSAG, SMAB, CERULOP, HBSAB, ALPHA PHEN, HBCAB, HCV RX PCR, NIYA CHOICE #### [facility] , #### PT, HEPATIC, CBC, LIPID, FE and TIBC, ALLYSON #### [address] GFR/1.73 sq M.predicted MDRD (S/P/Bld) [Vol rate/Area] mL/min/{1.73_m2} Normal [facility] Comment on above: Performed By: #### H BSAG, SMAB, CERULOP, HBSAB, ALPHA PHEN, HBCAB, HCV RX PCR, NIYA CHOICE #### [facility] , #### PT, HEPATIC, CBC, LIPID, FE and TIBC, ALLYSON #### [address] Globulin (S) [Mass/Vol] 3.0 g/dL Normal [facility] Comment on above: Performed By: #### H BSAG, SMAB, CERULOP, HBSAB, ALPHA PHEN, HBCAB, HCV RX PCR, NIYA CHOICE #### [facility] , #### PT, HEPATIC, CBC, LIPID, FE and TIBC, ALLYSON #### [address] Glucose [Mass/Vol] 71 mg/dL Normal 70-100 [facility] Comment on above: Result Comment: [place] Glucose Reference Range is dependent on time and content of last meal. Glucose of more than 200 mg/dL in a nonstressed, ambulatory subject supports the diagnosis of Diabetes Mellitus. ADA recommended reference range Performed By: #### H BSAG, SMAB, CERULOP, HBSAB, ALPHA PHEN, HBCAB, HCV RX PCR, NIYA CHOICE #### [facility] , #### PT, HEPATIC, CBC, LIPID, FE and TIBC, ALLYSON #### [address] Potassium [Moles/Vol] 4.2 mmol/L Normal 3.5-5.1 [facility] Comment on above: Performed By: #### H BSAG, SMAB, CERULOP, HBSAB, ALPHA PHEN, HBCAB, HCV RX PCR, NIYA CHOICE #### [facility] , #### PT, HEPATIC, CBC, LIPID, FE and TIBC, ALLYSON #### [address] Protein [Mass/Vol] 6.8 g/dL Normal 6.4-8.9 [facility] Comment on above: Performed By: #### H BSAG, SMAB, CERULOP, HBSAB, ALPHA PHEN, HBCAB, HCV RX PCR, NIYA CHOICE #### [facility] , #### PT, HEPATIC, CBC, LIPID, FE and TIBC, ALLYSON #### [address] Sodium [Moles/Vol] 129 mmol/L Low 136-145 [facility] Comment on above: Performed By: #### H BSAG, SMAB, CERULOP, HBSAB, ALPHA PHEN, HBCAB, HCV RX PCR, NIYA CHOICE #### [facility] , #### PT, HEPATIC, CBC, LIPID, FE and TIBC, ALLYSON #### [facility] [address] [place] [address] [place] Urea nitrogen [Mass/Vol] 5 mg/dL Low 7-25 [facility] Comment on above: Performed By: #### H BSAG, SMAB, CERULOP, HBSAB, ALPHA PHEN, HBCAB, HCV RX PCR, NIYA CHOICE #### [facility] , #### PT, HEPATIC, CBC, LIPID, FE and TIBC, ALLYSON #### [facility] [address] [place] [address] [place] Creatinine [Mass/volume] in Serum or PlasmaOrdered By: Wes Hadley on 06-28-2024 Creatinine [Mass/Vol] Creatinine [Mass/v olume] in Serum or Plasma 0.60-1.20 [facility] Eosinophils Auto (Bld) [#/Vo l]Ordered By: Wes Hadley on 06-28-2024 Eosinophils (Bld) [#/Vol] Automated eosinophil count 0.0-0.45 [facility] Eosinophils/100 WBC Auto (Bl d)Ordered By: Wes Hadley on 06-28-2024 Eosinophils/100 WBC (Bld) Automated eosinophil % . [facility] Erythrocyte distribution wid th Auto (RBC) [Ratio]Ordered By: Wes Hadley on 06-28-2024 Erythrocyte distribution width (RBC) [Ratio] Erythrocyte distribution width [Ratio] by Automated count 11.9-15.3 [facility] Globulin Calc (S) [Mass/Vol] Ordered By: Wes Hadley on 06-28-2024 Globulin (S) [Mass/Vol] Serum globulin measurement by calculation (mass/volume) [facility] Glucose [Mass/volume] in Ser um or PlasmaOrdered By: Wes Hadley on 06-28-2024 Glucose [Mass/Vol] Glucose [Mass/volume ] in Serum or Plasma 70-100 [facility] Comment on above: ADA recommended refe rence rangeRandom Glucose Reference Range is dependent on time and content of last meal. Glucose of more than 200 mg/dL in a nonstressed, ambulatory subject supports the diagnosis of Diabetes Mellitus. Hematocrit Auto (Bld) [Volum e fraction]Ordered By: Wes Hadley on 06-28-2024 Hematocrit (Bld) [Volume fraction] Hematocrit [Volume Fraction] of Blood by Automated count 34.0-46.4 [facility] Hemoglobin [Mass/volume] in BloodOrdered By: Wes Hadley on 06-28-2024 Hemoglobin (Bld) [Mass/Vol] Hemoglobin [Mass/volume] in Blood 11.8-15.4 [facility] INR in Platelet poor plasma by Coagulation assayOrdered By: Wes Hadley on 06-28-2024 INR Coag (PPP) [Relative time] INR in Platelet poor plasma by Coagulation assay [facility] Comment on above: INR Therapeutic Rang e A) Pre- and Peroperative OAT started two weeks before surgery. NOT HIP SURGERY: 1.5 - 2.5 HIP SURGERY: 2 - 3B) Primary and secondary prevention of venous THROMBOSIS: 2 - 3C) Active venous thrombosis, pulmonary embolismand prevention of recurrent venous thrombosis: 2 - 3D) Prevention of arterial thromboembolismincluding patients with mechanical heart valves: 3 - 4.5 Leukocytes [#/volume] correc anthony for nucleated erythrocytes in Blood by Automated counOrdered By: Wes Hadley on 06-28-2024 WBC corrected for nucl RBC Auto (Bld) [#/Vol] Leukocytes [#/volume] corrected for nucleated erythrocytes in Blood by Automated coun Low 3.8-11.6 [facility] Lymphocytes Auto (Bld) [#/Vo l]Ordered By: Wes Hadley on 06-28-2024 Lymphocytes (Bld) [#/Vol] Lymphocytes [#/volume] in Blood by Automated count Low 1.00-4.8 [facility] Lymphocytes/100 WBC Auto (Bl d)Ordered By: Wes Hadley on 06-28-2024 Lymphocytes/100 WBC (Bld) Lymphocytes/100 leukocytes in Blood by Automated count . [facility] MCH Auto (RBC) [Entitic mass ]Ordered By: Wes Hadley on 06-28-2024 MCH (RBC) [Entitic mass] MCH [Entitic mass] by Automated count 24.7-34.3 [facility] MCHC Auto (RBC) [Mass/Vol]Or dered By: Wes Hadley on 06-28-2024 MCHC (RBC) [Mass/Vol] MCHC [Mass/volume] by Automated count 32.0-35.0 [facility] MCV Auto (RBC) [Entitic vol] Ordered By: Wes Hadley on 06-28-2024 MCV (RBC) [Entitic vol] MCV [Entitic volume] by Automated count 80-100 [facility] Monocytes Auto (Bld) [#/Vol] Ordered By: Wes Hadley on 06-28-2024 Monocytes (Bld) [#/Vol] Automated blood monocyte count 0.0-0.8 [facility] Monocytes/100 WBC Auto (Bld) Ordered By: Wes Hadley on 06-28-2024 Monocytes/100 WBC (Bld) Automated monocyte % . [facility] Neutrophils Auto (Bld) [#/Vo l]Ordered By: Wes Hadley on 06-28-2024 Neutrophils (Bld) [#/Vol] Neutrophils [#/volume] in Blood by Automated count 1.8-7.7 [facility] Neutrophils/100 WBC Auto (Bl d)Ordered By: Wes Hadley on 06-28-2024 Neutrophils/100 WBC (Bld) Automated neutrophil % . [facility] No Panel InformationOrdered By: Wes Hadley on 06-28-2024 Estimated GFR (CKD-EPI) > 60.0 mL/Min [facility] Creatinine Clearance (Chem N/A [facility] Nucleated erythrocytes [Pres ence] in Blood by Automated countOrdered By: Wes Hadley on 06-28-2024 Nucleated RBC Auto Ql (Bld) Nucleated erythrocytes [Presence] in Blood by Automated count 0-0.5 [facility] Platelet mean volume Auto (B ld) [Entitic vol]Ordered By: Wes Hadley on 06-28-2024 Platelet mean volume (Bld) [Entitic vol] Platelet mean volume [Entitic volume] in Blood by Automated count 6.3-10.7 [facility] Platelets Auto (Bld) [#/Vol] Ordered By: Wes Hadley on 06-28-2024 Platelets (Bld) [#/Vol] Platelets [#/volume] in Blood by Automated count Low 150-450 [facility] Potassium [Moles/volume] in Serum or PlasmaOrdered By: Wes Hadley on 06-28-2024 Potassium [Moles/Vol] Potassium [Moles/v olume] in Serum or Plasma 3.5-5.1 [facility] Protein [Mass/volume] in Ser um or PlasmaOrdered By: Wes Hadley on 06-28-2024 Protein [Mass/Vol] Protein [Mass/volume ] in Serum or Plasma 6.4-8.9 [facility] Prothrombin Time INRon 06-28 INR Coag (PPP) [Relative time] 1.4 {INR} Normal [facility] Comment on above: Result Comment: INR Therapeutic Range A) Pre- and Peroperative OAT started two weeks before surgery. NOT HIP SURGERY: 1.5 - 2.5 HIP SURGERY: 2 - 3 B) Primary and secondary prevention of venous THROMBOSIS: 2 - 3 C) Active venous thrombosis, pulmonary embolism and prevention of recurrent venous thrombosis: 2 - 3 D) Prevention of arterial thromboembolism including patients with mechanical heart valves: 3 - 4.5 PERFORMED BY: [place] [address] PATHOLOGIST SCARFING MACHINE OPERATOR CARL KWAN M.D. Performed By: #### H BSAG, SMAB, CERULOP, HBSAB, ALPHA PHEN, HBCAB, HCV RX PCR, NIYA CHOICE #### [facility] , #### PT, HEPATIC, CBC, LIPID, FE and TIBC, [place]ON #### [place] [address] [place] PT Coag (PPP) [Time] 15.9 s High 9.0-12.9 [facility] Comment on above: Result Comment: A he matocrit value greater than 55% may lead to inaccurate results in coagulation testing. Patients having hematocrit values >55% require a special collection tube for coagulation studies. Please contact the laboratory at [phone] for redraw instructions. Performed By: #### H BSAG, SMAB, CERULOP, HBSAB, ALPHA PHEN, HBCAB, HCV RX PCR, NIYA CHOICE #### [facility] , #### PT, HEPATIC, CBC, LIPID, FE and TIBC, ALLYSON #### [facility] [address] Prothrombin time (PT)Ordered By: Wes Hadley on 06-28-2024 PT Coag (PPP) [Time] Prothrombin time (PT) High 9.0- 12.9 [facility] Comment on above: A hematocrit value g reater than 55% may lead to inaccurate results in coagulation testing. Patients having hematocrit values >55% require a special collection tube for coagulation studies. Please contact the laboratory at [phone] for redraw instructions. RBC Auto (Bld) [#/Vol]Ordere d By: Wes Hadley on 06-28-2024 RBC (Bld) [#/Vol] Erythrocytes [#/volu me] in Blood by Automated count 3.60-5.00 [facility] Serum or plasma albumin/glob ulin mass ratioOrdered By: Wes Hadley on 06-28-2024 Albumin/Globulin [Mass ratio] Serum or plasma albumin/globulin mass ratio [facility] Serum or plasma anion gap de terminationOrdered By: Wes Hadley on 06-28-2024 Anion gap [Moles/Vol] Serum or plasma an ion gap determination 6.0-15.0 [facility] Sodium [Moles/volume] in Ser um or PlasmaOrdered By: Wes Hadley on 06-28-2024 Sodium [Moles/Vol] Sodium [Moles/volume ] in Serum or Plasma Low 136-145 [facility] Urea nitrogen [Mass/volume] in Serum or PlasmaOrdered By: Wes Hadley on 06-28-2024 Urea nitrogen [Mass/Vol] Urea nitrogen [Mass/volume] in Serum or Plasma Low 7-25 [facility] WBC Auto (Bld) [#/Vol]Ordere d By: Wes Hadley on 06-28-2024 WBC (Bld) [#/Vol] Leukocytes [#/volume ] in Blood by Automated count Low 3.8-11.6 [facility] Alanine aminotransferase [En zymatic activity/volume] in Serum or PlasmaOrdered By: Wes Hadley on 05-01-2024 ALT [Catalytic activity/Vol] Alanine aminotransferase [Enzymatic activity/volume] in Serum or Plasma 7-52 [facility] Albumin [Mass/volume] in Ser um or Plasma by Bromocresol green (BCG) dye binding methoOrdered By: Wes Hadley on 05-01-2024 Albumin BCG dye [Mass/Vol] Albumin [Mass/volume] in Serum or Plasma by Bromocresol green (BCG) dye binding metho Low 3.5-5.7 [facility] Alkaline phosphatase [Enzyma tic activity/volume] in Serum or PlasmaOrdered By: Wes Hadley on 05-01-2024 ALP [Catalytic activity/Vol] Alkaline phosphatase [Enzymatic activity/volume] in Serum or Plasma 34-104 [facility] Aspartate aminotransferase [ Enzymatic activity/volume] in Serum or PlasmaOrdered By: Wes Hadley on 05-01-2024 AST [Catalytic activity/Vol] Aspartate aminotransferase [Enzymatic activity/volume] in Serum or Plasma 13-39 [facility] Basophils Auto (Bld) [#/Vol] Ordered By: Wes Hadley on 05-01-2024 Basophils (Bld) [#/Vol] Automated basophil count 0.0-0.2 [facility] Basophils/100 WBC Auto (Bld) Ordered By: Wes Hadley on 05-01-2024 Basophils/100 WBC (Bld) Automated basophil % . [facility] Bilirubin.total [Mass/volume ] in Serum or PlasmaOrdered By: Wes Hadley on 05-01-2024 Bilirubin [Mass/Vol] Bilirubin.total [Mass/volume] in Serum or Plasma High 0.3-1.0 [facility] Comment on above: Samples from patient s who have taken Naproxen have shown spurious elevation in Total Bilirubin levels. A metabolite of Naproxen, O-desmethylnaproxen, has been shown to interfere with the Baudilio method for measuring Total Bilirubin. Calcium [Mass/volume] in Ser um or PlasmaOrdered By: Wes Hadley on 05-01-2024 Calcium [Mass/Vol] Calcium [Mass/volume ] in Serum or Plasma 8.6-10.3 [facility] Carbon dioxide, total [Moles /volume] in Serum or PlasmaOrdered By: Wes Hadley on 05-01-2024 CO2 [Moles/Vol] Carbon dioxide, tota l [Moles/volume] in Serum or Plasma 21.0-31.0 [facility] Chloride [Moles/volume] in S warner or PlasmaOrdered By: Wes Hadley on 05-01-2024 Chloride [Moles/Vol] Chloride [Moles/vol ume] in Serum or Plasma 98-107 [facility] Complete Blood Count Auto Di ffon 05-01-2024 Basophils (Bld) [#/Vol] 0.0 10*3/uL Normal 0.0-0.2 [facility] Comment on above: Result Comment: PERF ORMED BY: [place] [address] PATHOLOGIST SCARFING MACHINE OPERATOR SANGITA BLACK M.D. Performed By: #### H BSAG, SMAB, CERULOP, HBSAB, ALPHA PHEN, HBCAB, HCV RX PCR, NIYA CHOICE #### [facility] , #### PT, HEPATIC, CBC, LIPID, FE and TIBC, ALLYSON #### [facility] [address] [place] [address] Basophils/100 WBC (Bld) 0.9 % Normal . [facility] Comment on above: Performed By: #### H BSAG, SMAB, CERULOP, HBSAB, ALPHA PHEN, HBCAB, HCV RX PCR, NIYA CHOICE #### [facility] , #### PT, HEPATIC, CBC, LIPID, FE and TIBC, ALLYSON #### [facility] [address] [place] [address] Eosinophils (Bld) [#/Vol] 0.0 10*3/uL Normal 0.0-0.45 [facility] Comment on above: Performed By: #### H BSAG, SMAB, CERULOP, HBSAB, ALPHA PHEN, HBCAB, HCV RX PCR, NIYA CHOICE #### [facility] , #### PT, HEPATIC, CBC, LIPID, FE and TIBC, ALLYSON #### [address] Eosinophils/100 WBC (Bld) 1.1 % Normal . [facility] Comment on above: Performed By: #### H BSAG, SMAB, CERULOP, HBSAB, ALPHA PHEN, HBCAB, HCV RX PCR, NIYA CHOICE #### [facility] , #### PT, HEPATIC, CBC, LIPID, FE and TIBC, ALLYSON #### [address] Erythrocyte distribution width (RBC) [Ratio] 15.0 % Normal 11.9-15.3 [facility] Comment on above: Performed By: #### H BSAG, SMAB, CERULOP, HBSAB, ALPHA PHEN, HBCAB, HCV RX PCR, NIYA CHOICE #### [facility] , #### PT, HEPATIC, CBC, LIPID, FE and TIBC, ALLYSON #### [address] Hematocrit (Bld) [Volume fraction] 32.9 % Low 34.0-46.4 [facility] Comment on above: Performed By: #### H BSAG, SMAB, CERULOP, HBSAB, ALPHA PHEN, HBCAB, HCV RX PCR, NIYA CHOICE #### [facility] , #### PT, HEPATIC, CBC, LIPID, FE and TIBC, ALLYSON #### [address] Hemoglobin (Bld) [Mass/Vol] 11.3 g/dL Low 11.8-15.4 [facility] Comment on above: Performed By: #### H BSAG, SMAB, CERULOP, HBSAB, ALPHA PHEN, HBCAB, HCV RX PCR, NIYA CHOICE #### [facility] , #### PT, HEPATIC, CBC, LIPID, FE and TIBC, ALLYSON #### [address] Lymphocytes (Bld) [#/Vol] 0.8 10*3/uL Low 1.00-4.8 [facility] Comment on above: Performed By: #### H BSAG, SMAB, CERULOP, HBSAB, ALPHA PHEN, HBCAB, HCV RX PCR, NIYA CHOICE #### [facility] , #### PT, HEPATIC, CBC, LIPID, FE and TIBC, ALLYSON #### [address] Lymphocytes/100 WBC (Bld) 19.8 % Normal . [facility] Comment on above: Performed By: #### H BSAG, SMAB, CERULOP, HBSAB, ALPHA PHEN, HBCAB, HCV RX PCR, NIYA CHOICE #### [facility] , #### PT, HEPATIC, CBC, LIPID, FE and TIBC, ALLYSON #### [address] MCH (RBC) [Entitic mass] 30.9 pg Normal 24.7-34.3 [facility] Comment on above: Performed By: #### H BSAG, SMAB, CERULOP, HBSAB, ALPHA PHEN, HBCAB, HCV RX PCR, NIYA CHOICE #### [facility] , #### PT, HEPATIC, CBC, LIPID, FE and TIBC, ALLYSON #### [address] MCV (RBC) [Entitic vol] 90.3 fL Normal 80-100 [facility] Comment on above: Performed By: #### H BSAG, SMAB, CERULOP, HBSAB, ALPHA PHEN, HBCAB, HCV RX PCR, NIYA CHOICE #### [facility] , #### PT, HEPATIC, CBC, LIPID, FE and TIBC, ALLYSON #### [address] Mean Corpuscular HGB Conc 34.2 g/dL Normal 32.0-35.0 [facility] Comment on above: Performed By: #### H BSAG, SMAB, CERULOP, HBSAB, ALPHA PHEN, HBCAB, HCV RX PCR, NIYA CHOICE #### [facility] , #### PT, HEPATIC, CBC, LIPID, FE and TIBC, ALLYSON #### [address] Monocytes (Bld) [#/Vol] 0.4 10*3/uL Normal 0.0-0.8 [facility] Comment on above: Performed By: #### H BSAG, SMAB, CERULOP, HBSAB, ALPHA PHEN, HBCAB, HCV RX PCR, NIYA CHOICE #### [facility] , #### PT, HEPATIC, CBC, LIPID, FE and TIBC, ALLYSON #### [address] Monocytes/100 WBC (Bld) 11.6 % Normal . [facility] Comment on above: Performed By: #### H BSAG, SMAB, CERULOP, HBSAB, ALPHA PHEN, HBCAB, HCV RX PCR, NIYA CHOICE #### [facility] , #### PT, HEPATIC, CBC, LIPID, FE and TIBC, ALLYSON #### [address] Neutrophils (Bld) [#/Vol] 2.5 10*3/uL Normal 1.8-7.7 [facility] Comment on above: Performed By: #### H BSAG, SMAB, CERULOP, HBSAB, ALPHA PHEN, HBCAB, HCV RX PCR, NIYA CHOICE #### [facility] , #### PT, HEPATIC, CBC, LIPID, FE and TIBC, ALLYSON #### [address] Neutrophils/100 WBC (Bld) 66.6 % Normal . [facility] Comment on above: Performed By: #### H BSAG, SMAB, CERULOP, HBSAB, ALPHA PHEN, HBCAB, HCV RX PCR, NIYA CHOICE #### [facility] , #### PT, HEPATIC, CBC, LIPID, FE and TIBC, ALLYSON #### [address] NRBC% 0.0 /100{WBC} Normal 0-0.5 [facility] Comment on above: Performed By: #### H BSAG, SMAB, CERULOP, HBSAB, ALPHA PHEN, HBCAB, HCV RX PCR, NIYA CHOICE #### [facility] , #### PT, HEPATIC, CBC, LIPID, FE and TIBC, ALLYSON #### [address] Platelet mean volume (Bld) [Entitic vol] 7.4 fL Normal 6.3-10.7 [facility] Comment on above: Performed By: #### H BSAG, SMAB, CERULOP, HBSAB, ALPHA PHEN, HBCAB, HCV RX PCR, NIYA CHOICE #### [facility] , #### PT, HEPATIC, CBC, LIPID, FE and TIBC, ALLYSON #### [address] Platelets (Bld) [#/Vol] 124 10*3/uL Low 150-450 [facility] Comment on above: Performed By: #### H BSAG, SMAB, CERULOP, HBSAB, ALPHA PHEN, HBCAB, HCV RX PCR, NIYA CHOICE #### [facility] , #### PT, HEPATIC, CBC, LIPID, FE and TIBC, ALLYSON #### [address] RBC (Bld) [#/Vol] 3.64 10*6/uL Normal 3.60-5.00 [facility] Comment on above: Performed By: #### H BSAG, SMAB, CERULOP, HBSAB, ALPHA PHEN, HBCAB, HCV RX PCR, NIYA CHOICE #### [facility] , #### PT, HEPATIC, CBC, LIPID, FE and TIBC, ALLYSON #### [address] WBC (Bld) [#/Vol] 3.8 10*3/uL Normal 3.8-11.6 [facility] Comment on above: Performed By: #### H BSAG, SMAB, CERULOP, HBSAB, ALPHA PHEN, HBCAB, HCV RX PCR, NIYA CHOICE #### [facility] , #### PT, HEPATIC, CBC, LIPID, FE and TIBC, ALLYSON #### [address] Comprehensive Metabolic Pane eli 05-01-2024 Albumin [Mass/Vol] 3.4 g/dL Low 3.5-5.7 [facility] Comment on above: Performed By: #### H BSAG, SMAB, CERULOP, HBSAB, ALPHA PHEN, HBCAB, HCV RX PCR, NIYA CHOICE #### [facility] , #### PT, HEPATIC, CBC, LIPID, FE and TIBC, ALLYSON #### [address] Albumin/Globulin [Mass ratio] 1.1 {ratio} Normal [facility] Comment on above: Performed By: #### H BSAG, SMAB, CERULOP, HBSAB, ALPHA PHEN, HBCAB, HCV RX PCR, NIYA CHOICE #### [facility] , #### PT, HEPATIC, CBC, LIPID, FE and TIBC, ALLYSON #### [address] ALP [Catalytic activity/Vol] 73 U/L Normal 34-104 [facility] Comment on above: Performed By: #### H BSAG, SMAB, CERULOP, HBSAB, ALPHA PHEN, HBCAB, HCV RX PCR, NIYA CHOICE #### [facility] , #### PT, HEPATIC, CBC, LIPID, FE and TIBC, ALLYSON #### [facility] [address] ALT [Catalytic activity/Vol] 17 U/L Normal 7-52 [facility] Comment on above: Performed By: #### H BSAG, SMAB, CERULOP, HBSAB, ALPHA PHEN, HBCAB, HCV RX PCR, NIYA CHOICE #### [facility] , #### PT, HEPATIC, CBC, LIPID, FE and TIBC, ALLYSON #### [facility] [address] Anion gap [Moles/Vol] 11.7 mmol/L Normal 6.0-15.0 [facility] Comment on above: Performed By: #### H BSAG, SMAB, CERULOP, HBSAB, ALPHA PHEN, HBCAB, HCV RX PCR, NIYA CHOICE #### [facility] , #### PT, HEPATIC, CBC, LIPID, FE and TIBC, [place]YSON #### [address] AST [Catalytic activity/Vol] 36 U/L Normal 13-39 [facility] Comment on above: Performed By: #### H BSAG, SMAB, CERULOP, HBSAB, ALPHA PHEN, HBCAB, HCV RX PCR, NIYA CHOICE #### [facility] , #### PT, HEPATIC, CBC, LIPID, FE and TIBC, ALLYSON #### [address] Bilirubin [Mass/Vol] 1.8 mg/dL High 0.3-1.0 [facility] Comment on above: Result Comment: Samp les from patients who have taken Naproxen have shown spurious elevation in Total Bilirubin levels. A metabolite of Naproxen, O-desmethylnaproxen, has been shown to interfere with the Jendrmarceloik-Grof method for measuring Total Bilirubin. Performed By: #### H BSAG, SMAB, CERULOP, HBSAB, ALPHA PHEN, HBCAB, HCV RX PCR, NIYA CHOICE #### [facility] , #### PT, HEPATIC, CBC, LIPID, FE and TIBC, ALLYSON #### [address] Calcium [Mass/Vol] 9.5 mg/dL Normal 8.6-10.3 [facility] Comment on above: Performed By: #### H BSAG, SMAB, CERULOP, HBSAB, ALPHA PHEN, HBCAB, HCV RX PCR, NIYA CHOICE #### [facility] , #### PT, HEPATIC, CBC, LIPID, FE and TIBC, ALLYSON #### [address] Chloride [Moles/Vol] 99 mmol/L Normal 98-107 [facility] Comment on above: Performed By: #### H BSAG, SMAB, CERULOP, HBSAB, ALPHA PHEN, HBCAB, HCV RX PCR, NIYA CHOICE #### [facility] , #### PT, HEPATIC, CBC, LIPID, FE and TIBC, ALLYSON #### [address] CO2 [Moles/Vol] 22.9 mmol/L Normal 21.0-31.0 [facility] Comment on above: Performed By: #### H BSAG, SMAB, CERULOP, HBSAB, ALPHA PHEN, HBCAB, HCV RX PCR, NIYA CHOICE #### [facility] , #### PT, HEPATIC, CBC, LIPID, FE and TIBC, ALLYSON #### [address] Creatinine [Mass/Vol] 0.60 mg/dL Normal 0.60-1.20 [facility] Comment on above: Performed By: #### H BSAG, SMAB, CERULOP, HBSAB, ALPHA PHEN, HBCAB, HCV RX PCR, NIYA CHOICE #### [facility] , #### PT, HEPATIC, CBC, LIPID, FE and TIBC, ALLYSON #### [address] Creatinine Clr Calc Pharmacy 86.10 Normal [facility] Comment on above: Result Comment: PERF ORMED BY: [place] [address] PATHOLOGIST SCARFING MACHINE OPERATOR SANGITA BLACK M.D. Performed By: #### H BSAG, SMAB, CERULOP, HBSAB, ALPHA PHEN, HBCAB, HCV RX PCR, NIYA CHOICE #### [facility] , #### PT, HEPATIC, CBC, LIPID, FE and TIBC, ALLYSON #### [address] GFR/1.73 sq M.predicted MDRD (S/P/Bld) [Vol rate/Area] mL/min/{1.73_m2} Normal [facility] Comment on above: Performed By: #### H BSAG, SMAB, CERULOP, HBSAB, ALPHA PHEN, HBCAB, HCV RX PCR, NIYA CHOICE #### [facility] , #### PT, HEPATIC, CBC, LIPID, FE and TIBC, ALLYSON #### [address] Globulin (S) [Mass/Vol] 3.2 g/dL Normal [facility] Comment on above: Performed By: #### H BSAG, SMAB, CERULOP, HBSAB, ALPHA PHEN, HBCAB, HCV RX PCR, NIYA CHOICE #### [facility] , #### PT, HEPATIC, CBC, LIPID, FE and TIBC, ALLYSON #### [address] Glucose [Mass/Vol] 113 mg/dL High 70-100 [facility] Comment on above: Result Comment: [place] Glucose Reference Range is dependent on time and content of last meal. Glucose of more than 200 mg/dL in a nonstressed, ambulatory subject supports the diagnosis of Diabetes Mellitus. ADA recommended reference range Performed By: #### H BSAG, SMAB, CERULOP, HBSAB, ALPHA PHEN, HBCAB, HCV RX PCR, NIYA CHOICE #### [facility] , #### PT, HEPATIC, CBC, LIPID, FE and TIBC, ALLYSON #### [address] Potassium [Moles/Vol] 4.6 mmol/L Normal 3.5-5.1 [facility] Comment on above: Performed By: #### H BSAG, SMAB, CERULOP, HBSAB, ALPHA PHEN, HBCAB, HCV RX PCR, NIYA CHOICE #### [facility] , #### PT, HEPATIC, CBC, LIPID, FE and TIBC, ALLYSON #### [address] Protein [Mass/Vol] 6.6 g/dL Normal 6.4-8.9 [facility] Comment on above: Performed By: #### H BSAG, SMAB, CERULOP, HBSAB, ALPHA PHEN, HBCAB, HCV RX PCR, NIYA CHOICE #### [facility] , #### PT, HEPATIC, CBC, LIPID, FE and TIBC, ALLYSON #### [address] Sodium [Moles/Vol] 129 mmol/L Low 136-145 [facility] Comment on above: Performed By: #### H BSAG, SMAB, CERULOP, HBSAB, ALPHA PHEN, HBCAB, HCV RX PCR, NIYA CHOICE #### [facility] , #### PT, HEPATIC, CBC, LIPID, FE and TIBC, ALLYSON #### [address] Urea nitrogen [Mass/Vol] 10 mg/dL Normal 7-25 [facility] Comment on above: Performed By: #### H BSAG, SMAB, CERULOP, HBSAB, ALPHA PHEN, HBCAB, HCV RX PCR, NIYA CHOICE #### [facility] , #### PT, HEPATIC, CBC, LIPID, FE and TIBC, ALLYSON #### [address] Creatinine [Mass/volume] in Serum or PlasmaOrdered By: Wes Hadley on 11-12-2024 Creatinine [Mass/Vol] Creatinine [Mass/v olume] in Serum or Plasma 0.60-1.20 [facility] Eosinophils Auto (Bld) [#/Vo l]Ordered By: Wes Hadley on 05-01-2024 Eosinophils (Bld) [#/Vol] Automated eosinophil count 0.0-0.45 [facility] Eosinophils/100 WBC Auto (Bl d)Ordered By: Wes Hadley on 05-01-2024 Eosinophils/100 WBC (Bld) Automated eosinophil % . [facility] Erythrocyte distribution wid th Auto (RBC) [Ratio]Ordered By: Wes Hadley on 05-01-2024 Erythrocyte distribution width (RBC) [Ratio] Erythrocyte distribution width [Ratio] by Automated count 11.9-15.3 [facility] Globulin Calc (S) [Mass/Vol] Ordered By: Wes Hadley on 05-01-2024 Globulin (S) [Mass/Vol] Serum globulin measurement by calculation (mass/volume) [facility] Glucose Glucometer (BldC) [M ass/Vol]Ordered By: Wes Hadley on 05-01-2024 Glucose [Mass/Vol] Capillary blood gluc ose measurement by glucometer (mass/volume) [facility] Comment on above: Random Glucose Refer ence Range is dependent on time and content of last meal. Glucose of more than 200 mg/dL in a nonstressed, ambulatory subject supports the diagnosis of Diabetes Mellitus. Glucose Poct Glucometerson 1 07-01-2023 Glucose [Mass/Vol] 117 mg/dL Normal [facility] Comment on above: Result Comment: [place] Glucose Reference Range is dependent on time and content of last meal. Glucose of more than 200 mg/dL in a nonstressed, ambulatory subject supports the diagnosis of Diabetes Mellitus. PERFORMED BY: [address] [place] [address] PATHOLOGIST SCARFING MACHINE OPERATOR SANGITA BLACK M.D. Performed By: #### H BSAG, SMAB, CERULOP, HBSAB, ALPHA PHEN, HBCAB, HCV RX PCR, NIYA CHOICE #### [facility] , #### PT, HEPATIC, CBC, LIPID, FE and TIBC, ALLYSON #### [facility] [address] Glucose [Mass/volume] in Ser um or PlasmaOrdered By: Wes Hadley on 05-01-2024 Glucose [Mass/Vol] Glucose [Mass/volume ] in Serum or Plasma High 70-100 [facility] Comment on above: ADA recommended refe rence rangeRandom Glucose Reference Range is dependent on time and content of last meal. Glucose of more than 200 mg/dL in a nonstressed, ambulatory subject supports the diagnosis of Diabetes Mellitus. Hematocrit Auto (Bld) [Volum e fraction]Ordered By: Wes Hadley on 05-01-2024 Hematocrit (Bld) [Volume fraction] Hematocrit [Volume Fraction] of Blood by Automated count Low 34.0-46.4 [facility] Hemoglobin [Mass/volume] in BloodOrdered By: Wes Hadley on 05-01-2024 Hemoglobin (Bld) [Mass/Vol] Hemoglobin [Mass/volume] in Blood Low 11.8-15.4 [facility] INR in Platelet poor plasma by Coagulation assayOrdered By: Wes Hadley on 05-01-2024 INR Coag (PPP) [Relative time] INR in Platelet poor plasma by Coagulation assay [facility] Comment on above: INR Therapeutic Rang e A) Pre- and Peroperative OAT started two weeks before surgery. NOT HIP SURGERY: 1.5 - 2.5 HIP SURGERY: 2 - 3B) Primary and secondary prevention of venous THROMBOSIS: 2 - 3C) Active venous thrombosis, pulmonary embolismand prevention of recurrent venous thrombosis: 2 - 3D) Prevention of arterial thromboembolismincluding patients with mechanical heart valves: 3 - 4.5 Leukocytes [#/volume] correc anthony for nucleated erythrocytes in Blood by Automated counOrdered By: Wes Hadley on 05-01-2024 WBC corrected for nucl RBC Auto (Bld) [#/Vol] Leukocytes [#/volume] corrected for nucleated erythrocytes in Blood by Automated coun 3.8-11.6 [facility] Lymphocytes Auto (Bld) [#/Vo l]Ordered By: Wes Hadley on 05-01-2024 Lymphocytes (Bld) [#/Vol] Lymphocytes [#/volume] in Blood by Automated count Low 1.00-4.8 [facility] Lymphocytes/100 WBC Auto (Bl d)Ordered By: Wes Hadley on 05-01-2024 Lymphocytes/100 WBC (Bld) Lymphocytes/100 leukocytes in Blood by Automated count . [facility] MCH Auto (RBC) [Entitic mass ]Ordered By: Wes Hadley on 05-01-2024 MCH (RBC) [Entitic mass] MCH [Entitic mass] by Automated count 24.7-34.3 [facility] MCHC Auto (RBC) [Mass/Vol]Or dered By: Wes Hadley on 05-01-2024 MCHC (RBC) [Mass/Vol] MCHC [Mass/volume] by Automated count 32.0-35.0 [facility] MCV Auto (RBC) [Entitic vol] Ordered By: Wes Hadley on 05-01-2024 MCV (RBC) [Entitic vol] MCV [Entitic volume] by Automated count 80-100 [facility] Monocytes Auto (Bld) [#/Vol] Ordered By: Wes Hadley on 05-01-2024 Monocytes (Bld) [#/Vol] Automated blood monocyte count 0.0-0.8 [facility] Monocytes/100 WBC Auto (Bld) Ordered By: Wes Hadley on 05-01-2024 Monocytes/100 WBC (Bld) Automated monocyte % . [facility] Neutrophils Auto (Bld) [#/Vo l]Ordered By: Wes Hadley on 05-01-2024 Neutrophils (Bld) [#/Vol] Neutrophils [#/volume] in Blood by Automated count 1.8-7.7 [facility] Neutrophils/100 WBC Auto (Bl d)Ordered By: Wes Hadley on 05-01-2024 Neutrophils/100 WBC (Bld) Automated neutrophil % . [facility] No Panel InformationOrdered By: Wes Hadley on 05-01-2024 Estimated GFR (CKD-EPI) > 60.0 mL/Min [facility] Creatinine Clearance (Chem 86.10 [facility] Nucleated erythrocytes [Pres ence] in Blood by Automated countOrdered By: Wes Hadley on 05-01-2024 Nucleated RBC Auto Ql (Bld) Nucleated erythrocytes [Presence] in Blood by Automated count 0-0.5 [facility] Platelet mean volume Auto (B ld) [Entitic vol]Ordered By: Wes Hadley on 05-01-2024 Platelet mean volume (Bld) [Entitic vol] Platelet mean volume [Entitic volume] in Blood by Automated count 6.3-10.7 [facility] Platelets Auto (Bld) [#/Vol] Ordered By: Wes Hadley on 05-01-2024 Platelets (Bld) [#/Vol] Platelets [#/volume] in Blood by Automated count Low 150-450 [facility] Potassium [Moles/volume] in Serum or PlasmaOrdered By: Wes Hadley on 05-01-2024 Potassium [Moles/Vol] Potassium [Moles/v olume] in Serum or Plasma 3.5-5.1 [facility] Protein [Mass/volume] in Ser um or PlasmaOrdered By: Wes Hadley on 05-01-2024 Protein [Mass/Vol] Protein [Mass/volume ] in Serum or Plasma 6.4-8.9 [facility] Prothrombin Time INRon 05-01 INR Coag (PPP) [Relative time] 1.5 {INR} Normal [facility] Comment on above: Result Comment: INR Therapeutic Range A) Pre- and Peroperative OAT started two weeks before surgery. NOT HIP SURGERY: 1.5 - 2.5 HIP SURGERY: 2 - 3 B) Primary and secondary prevention of venous THROMBOSIS: 2 - 3 C) Active venous thrombosis, pulmonary embolism and prevention of recurrent venous thrombosis: 2 - 3 D) Prevention of arterial thromboembolism including patients with mechanical heart valves: 3 - 4.5 PERFORMED BY: [place] [address] PATHOLOGIST SCARFING MACHINE OPERATOR SANGITA BLACK M.D. Performed By: #### H BSAG, SMAB, CERULOP, HBSAB, ALPHA PHEN, HBCAB, HCV RX PCR, NIYA CHOICE #### [facility] , #### PT, HEPATIC, CBC, LIPID, FE and TIBC, ALLYSON #### [facility] [address] [place] [address] [place] PT Coag (PPP) [Time] 16.8 s High 9.0-12.9 [facility] Comment on above: Result Comment: A he matocrit value greater than 55% may lead to inaccurate results in coagulation testing. Patients having hematocrit values >55% require a special collection tube for coagulation studies. Please contact the laboratory at [phone] for redraw instructions. Performed By: #### H BSAG, SMAB, CERULOP, HBSAB, ALPHA PHEN, HBCAB, HCV RX PCR, NIYA CHOICE #### [facility] , #### PT, HEPATIC, CBC, LIPID, FE and TIBC, ALLYSON #### [facility] [address] [place] [id number] [facility] Prothrombin time (PT)Ordered By: Wes Hadley on 05-01-2024 PT Coag (PPP) [Time] Prothrombin time (PT) High 9.0- 12.9 [facility] Comment on above: A hematocrit value g reater than 55% may lead to inaccurate results in coagulation testing. Patients having hematocrit values >55% require a special collection tube for coagulation studies. Please contact the laboratory at [phone] for redraw instructions. RBC Auto (Bld) [#/Vol]Ordere d By: Wes Hadley on 05-01-2024 RBC (Bld) [#/Vol] Erythrocytes [#/volu me] in Blood by Automated count 3.60-5.00 [facility] Serum or plasma albumin/glob ulin mass ratioOrdered By: Wes Hadley on 05-01-2024 Albumin/Globulin [Mass ratio] Serum or plasma albumin/globulin mass ratio [facility] Serum or plasma anion gap de terminationOrdered By: Wes Hadley on 05-01-2024 Anion gap [Moles/Vol] Serum or plasma an ion gap determination 6.0-15.0 [facility] Sodium [Moles/volume] in Ser um or PlasmaOrdered By: Wes Hadley on 05-01-2024 Sodium [Moles/Vol] Sodium [Moles/volume ] in Serum or Plasma Low 136-145 [facility] Urea nitrogen [Mass/volume] in Serum or PlasmaOrdered By: Wes Hadley on 05-01-2024 Urea nitrogen [Mass/Vol] Urea nitrogen [Mass/volume] in Serum or Plasma 01-11 [facility] WBC Auto (Bld) [#/Vol]Ordere d By: Wes Hadley on 05-01-2024 WBC (Bld) [#/Vol] Leukocytes [#/volume ] in Blood by Automated count 3.8-11.6 [facility] liveron 04-02-2024 [facility] [place] [address] Ultrasound Report Signed Patient: Bernadine Bhakta MR#: [id number] : 1965 Acct:[id number] Age/Sex: 58 / F ADM Date: 04/02/24 Loc: Room: Type: [facility] Attending Dr: Wes Hadley MD Ordering Provider: Wes Hadley MD Date of Service: 04/02/24 US/US liver: K70.30 - Alcoholic cirrhosis of liver without ascites Copies to: Wes Hadley MD LIMITED ABDOMINAL ULTRASOUND: CLINICAL HISTORY: Cirrhotic liver. COMPARISON: None TECHNIQUE: Grayscale and color Doppler images of the right upper quadrant organs were obtained. FINDINGS: Pancreas: Visualized portions appear unremarkable. Liver: Cirrhotic liver with small amount of ascites. No focal mass or intrahepatic ductal dilatation. Hepatopedal flow is seen within the portal vein. Gallbladder: Gallbladder wall thickening with what appears to be tumefactive sludge. No internal color Doppler vascularity. Negative Pettit sign. CBD: 5.3 mm. US/US liver IMPRESSION: CIRRHOTIC LIVER NO HEPATIC MASS IS SEEN. GALLBLADDER WALL THICKENING WITH PRESUMED TUMEFACTIVE SLUDGE. IF DEVELOPING ACUTE CHOLECYSTITIS IS OF CLINICAL CONCERN, FURTHER EVALUATION WITH HIDA SCAN IS SUGGESTED. SMALL AMOUNT OF ASCITES.. Impression dictated by: Shahzad Ortiz Jr., D.O.04/02/2024 4:08 PM Dictation Location: [place] [address] Tech: Sydnie Ornelsa Transcribed By: JOSE ELIAS 04/02/24 1608 Dictated By: Shahzad Ortiz Jr, DO 04/02/24 160 Signed By: 04/02/24 1608 [facility] US paracentesis abd w/imageo n 03-01-2024 US paracentesis abd w/image [facility] [place] [address] Ultrasound Report Signed Patient: Bernadine Bhakta MR#: [id number] : 1965 Acct:[id number] Age/Sex: 58 / F ADM Date: 03/01/24 Loc: Room: Type: [facility] Attending Dr: Serene Zelaya MD PSYCHIATRY-C Ordering Provider: Serene Zelaya PA-C Date of Service: 03/01/24 US/US paracentesis abd w/image: K70.31 Copies to: Serene Zelaya PA-C ULTRASOUND-GUIDED PARACENTESIS CLINICAL DATA: Cirrhosis with recurrent symptomatic ascites The procedure was discussed with the patient and consent was obtained. Ultrasound survey of the abdomen and pelvis was performed and large amount of ascites was identified. The right lower quad rant was chosen as the site for aspiration. Following sterile preparation and local anesthesia with lidocaine, a 5 [place] [employer] sheath catheter was advanced into the peritoneal cavity with return of clear yellow fluid. Approximately 5700 mL of ascites was drained. The catheter was removed. There were no immediate complications. Patient was sent to the infusion center for albumin replacement therapy. US/US paracentesis abd w/image IMPRESSION: STATUS POST ULTRASOUND-GUIDED THERAPEUTIC PARACENTESIS. Impression dictated by: Serene Greenberg M.D.03/01/2024 3:26 PM Dictation Location: [place] [address] Tech: Kathy Halina Transcribed By: JOSE ELIAS 03/01/24 1526 Dictated By: Serene Greenberg MD 03/01/24 1525 Signed By: 03/01/24 1526 Normal [facility] NIYA with Reflexon 02-28-2024 NIYA with Reflex Negative Normal Negative [facility] Comment on above: Result Comment: Perf ormed at: - [facility] [address] [id number] Burning Plant Operator: Gonzales Poe PhD, Phone: [phone] Performed By: #### H BSAG, SMAB, CERULOP, HBSAB, ALPHA PHEN, HBCAB, HCV RX PCR, NIYA CHOICE #### [facility] , #### PT, HEPATIC, CBC, LIPID, FE and TIBC, ALLYSON #### [facility] [address] [place] [address] [place] Actin smooth muscle IgG Ab [ Units/volume] in SerumOrdered By: Wes Hadley on 02-28-2024 Actin smooth muscle IgG Qn (S) 18 Units 0- [facility] Comment on above: Negative 0 - 19 Weak positive 20 - 30 Moderate to strong positive >30 Actin Antibodies are found in 52-85% of patients with autoimmune hepatitis or chronic active hepatitis and in 22% of patients with primary biliary cirrhosis.Performed at: [facility] [address] [id number] Director: Gonzales Poe PhD, Phone: [phone] Actin smooth muscle IgG Qn (S) Actin smooth muscle IgG Ab [Units/volume] in Serum 0- [facility] Comment on above: Negative 0 - 19 Weak positive 20 - 30 Moderate to strong positive >30 Actin Antibodies are found in 52-85% of patients with autoimmune hepatitis or chronic active hepatitis and in 22% of patients with primary biliary cirrhosis.Performed at: [facility] [address] [id number] Director: Gonzales Poe PhD, Phone: [phone] Alanine aminotransferase [En zymatic activity/volume] in Serum or PlasmaOrdered By: Wes Hadley on 02-28-2024 ALT [Catalytic activity/Vol] 10 U/L Normal [facility] Comment on above: Performed By: #### H BSAG, SMAB, CERULOP, HBSAB, ALPHA PHEN, HBCAB, HCV RX PCR, NIYA CHOICE #### [facility] , #### PT, HEPATIC, CBC, LIPID, FE and TIBC, ALLYSON #### [facility] [address] ALT [Catalytic activity/Vol] Alanine aminotransferase [Enzymatic activity/volume] in Serum or Plasma [facility] Albumin [Mass/volume] in Ser um or Plasma by Bromocresol green (BCG) dye binding methoOrdered By: Wes Hadley on 02-28-2024 Albumin BCG dye [Mass/Vol] 3.1 g/dL Low 3.5-5.7 [facility] Albumin BCG dye [Mass/Vol] Albumin [Mass/volume] in Serum or Plasma by Bromocresol green (BCG) dye binding metho Low 3.5-5.7 [facility] Alkaline phosphatase [Enzyma tic activity/volume] in Serum or PlasmaOrdered By: Wes Hadley on 02-28-2024 ALP [Catalytic activity/Vol] 72 U/L Normal 34-104 [facility] Comment on above: Performed By: #### H BSAG, SMAB, CERULOP, HBSAB, ALPHA PHEN, HBCAB, HCV RX PCR, NIYA CHOICE #### [facility] , #### PT, HEPATIC, CBC, LIPID, FE and TIBC, ALLYSON #### [facility] [address] ALP [Catalytic activity/Vol] Alkaline phosphatase [Enzymatic activity/volume] in Serum or Plasma 34-104 [facility] [id number] Phenotyp kimberley 02-28-2024 Alpha 1 Anti-Trypsin 233 mg/dL High 101-187 [facility] Comment on above: Performed By: #### H BSAG, SMAB, CERULOP, HBSAB, ALPHA PHEN, HBCAB, HCV RX PCR, NIYA CHOICE #### [facility] , #### PT, HEPATIC, CBC, LIPID, FE and TIBC, ALLYSON #### [facility] [address] Phenotype (P1) MM Normal . [facility] Comment on above: Result Comment: MM Phenotype is considered to be normal , producing normal serum levels of [id number] inhibitor and not associated with clinical disease. Associated A1A total serum levels in other phenotypes and their incidence in the general population are shown in the table below. Phenotype Population % function A-1-AT Conc.* Incidence % compared to MM (Typical Range) MM 86.5% 100% (96 - 189) MS 8.0% 86% (83 - 161) MZ 3.9% 61% (60 - 111) FM 0.4% 100% (93 - 191) SZ 0.3% 41% (42 - 75) SS 0.1% 64% (62 - 119) ZZ 0.05% 19% (16 - 38) FS 0.05% 70% (70 - 128) FZ Unknown 46% (44 - 88) FF Unknown Unknown *A-1-AT concentration in the homozygous MM phenotype is taken as the reference normal. Percent deficiency in each phenotype is reported relative to this reference. Ranges used to confirm phenotype. Performed at: [address] [id number] Burning [employer] Operator: Gonzales Poe PhD, Phone: [phone] Performed at: [facility] [id number] Burning Plant Operator: Ankita Ruelas MD, Phone: [phone] Performed By: #### H BSAG, SMAB, CERULOP, HBSAB, ALPHA PHEN, HBCAB, HCV RX PCR, NIYA CHOICE #### [facility] , #### PT, HEPATIC, CBC, LIPID, FE and TIBC, ALLYSON #### [facility] [address] Aspartate aminotransferase [ Enzymatic activity/volume] in Serum or PlasmaOrdered By: Wes Hadley on 02-28-2024 AST [Catalytic activity/Vol] 35 U/L Normal [facility] Comment on above: Performed By: #### H BSAG, SMAB, CERULOP, HBSAB, ALPHA PHEN, HBCAB, HCV RX PCR, NIYA CHOICE #### [facility] , #### PT, HEPATIC, CBC, LIPID, FE and TIBC, ALLYSON #### [facility] [address] [place] [address] AST [Catalytic activity/Vol] Aspartate aminotransferase [Enzymatic activity/volume] in Serum or Plasma [facility] Automated basophil %Ordered By: Wes Hadley on 02-28-2024 Basophils/100 WBC (Bld) 0.8 % Normal . [facility] Comment on above: Performed By: #### H BSAG, SMAB, CERULOP, HBSAB, ALPHA PHEN, HBCAB, HCV RX PCR, NIYA CHOICE #### [facility] , #### PT, HEPATIC, CBC, LIPID, FE and TIBC, ALLYSON #### [address] Automated basophil countOrde red By: Wes Hadley on 02-28-2024 Basophils (Bld) [#/Vol] 0.0 10*3/uL Normal 0.0-0.2 [facility] Comment on above: Result Comment: PERF ORMED BY: [place] [address] PATHOLOGIST SCARFING MACHINE OPERATOR SANGITA BLACK M.D. Performed By: #### H BSAG, SMAB, CERULOP, HBSAB, ALPHA PHEN, HBCAB, HCV RX PCR, NIYA CHOICE #### [facility] , #### PT, HEPATIC, CBC, LIPID, FE and TIBC, ALLYSON #### [address] Automated blood monocyte cou ntOrdered By: Wes Hadley on 02-28-2024 Monocytes (Bld) [#/Vol] 0.7 10*3/uL Normal 0.0-0.8 [facility] Comment on above: Performed By: #### H BSAG, SMAB, CERULOP, HBSAB, ALPHA PHEN, HBCAB, HCV RX PCR, NIYA CHOICE #### [facility] , #### PT, HEPATIC, CBC, LIPID, FE and TIBC, ALLYSON #### [address] Automated eosinophil %Ordere d By: Wes Hadley on 02-28-2024 Eosinophils/100 WBC (Bld) 1.1 % Normal . [facility] Comment on above: Performed By: #### H BSAG, SMAB, CERULOP, HBSAB, ALPHA PHEN, HBCAB, HCV RX PCR, NIYA CHOICE #### [facility] , #### PT, HEPATIC, CBC, LIPID, FE and TIBC, ALLYSON #### [facility] [address] Automated eosinophil countOr dered By: Wes Hadley on 02-28-2024 Eosinophils (Bld) [#/Vol] 0.1 10*3/uL Normal 0.0-0.45 [facility] Comment on above: Performed By: #### H BSAG, SMAB, CERULOP, HBSAB, ALPHA PHEN, HBCAB, HCV RX PCR, NIYA CHOICE #### [facility] , #### PT, HEPATIC, CBC, LIPID, FE and TIBC, ALLYSON #### [facility] [address] [place] [address] Automated monocyte %Ordered By: Wes Hadley on 02-28-2024 Monocytes/100 WBC (Bld) 11.8 % Normal . [facility] Comment on above: Performed By: #### H BSAG, SMAB, CERULOP, HBSAB, ALPHA PHEN, HBCAB, HCV RX PCR, NIYA CHOICE #### [facility] , #### PT, HEPATIC, CBC, LIPID, FE and TIBC, ALLYSON #### [facility] [address] [place] [address] Automated neutrophil %Ordere d By: Wes Hadley on 02-28-2024 Neutrophils/100 WBC (Bld) 66.9 % Normal . [facility] Comment on above: Performed By: #### H BSAG, SMAB, CERULOP, HBSAB, ALPHA PHEN, HBCAB, HCV RX PCR, NIYA CHOICE #### [facility] , #### PT, HEPATIC, CBC, LIPID, FE and TIBC, ALLYSON #### [facility] [address] [place] [address] Basophils Auto (Bld) [#/Vol] Ordered By: Wes Hadley on 02-28-2024 Basophils (Bld) [#/Vol] Automated basophil count 0.0-0.2 [facility] Basophils/100 WBC Auto (Bld) Ordered By: Wes Hadley on 02-28-2024 Basophils/100 WBC (Bld) Automated basophil % . [facility] Bilirubin.direct [Mass/volum e] in Serum or PlasmaOrdered By: Wes Hadley on 02-28-2024 Bilirubin.direct [Mass/Vol] 1.40 mg/dL High 0.03-0.18 [facility] Bilirubin.direct [Mass/Vol] Bilirubin.direct [Mass/volume] in Serum or Plasma High 0.03-0.18 [facility] Bilirubin.total [Mass/volume ] in Serum or PlasmaOrdered By: Wes Hadley on 02-28-2024 Bilirubin [Mass/Vol] 3.6 mg/dL High 0.3-1.0 [facility] Comment on above: Samples from patient s who have taken Naproxen have shown spurious elevation in Total Bilirubin levels. A metabolite of Naproxen, O-desmethylnaproxen, has been shown to interfere with the Jendrassik-Grof method for measuring Total Bilirubin. Result Comment: Samp les from patients who have taken Naproxen have shown spurious elevation in Total Bilirubin levels. A metabolite of Naproxen, O-desmethylnaproxen, has been shown to interfere with the Jendrassik-Grof method for measuring Total Bilirubin. Performed By: #### H BSAG, SMAB, CERULOP, HBSAB, ALPHA PHEN, HBCAB, HCV RX PCR, NIYA CHOICE #### [facility] , #### PT, HEPATIC, CBC, LIPID, FE and TIBC, ALLYSON #### [facility] [address] [place] [address] Bilirubin [Mass/Vol] Bilirubin.total [Mass/volume] in Serum or Plasma High 0.3-1.0 [facility] Comment on above: Samples from patient s who have taken Naproxen have shown spurious elevation in Total Bilirubin levels. A metabolite of Naproxen, O-desmethylnaproxen, has been shown to interfere with the Jendrassik-Grof method for measuring Total Bilirubin. Ceruloplasminon 02-28-2024 Ceruloplasmin 22.9 mg/dL Normal 19.0-39.0 [facility] Comment on above: Result Comment: Perf ormed at: CB - [facility] [address] [id number] Burning Plant Operator: Gonzales Poe PhD, Phone: [phone] PERFORMED BY: [place] [address] PATHOLOGIST SCARFING MACHINE OPERATOR SANGITA BLACK M.D. Performed By: #### H BSAG, SMAB, CERULOP, HBSAB, ALPHA PHEN, HBCAB, HCV RX PCR, NIYA CHOICE #### [facility] , #### PT, HEPATIC, CBC, LIPID, FE and TIBC, [place] #### [place] [address] [place] Cholesterol [Mass/volume] in Serum or PlasmaOrdered By: Wes Hadley on 02-28-2024 Cholesterol [Mass/Vol] 194 mg/dL Normal 140-200 [facility] Comment on above: Chol less than 200 m g/dl low riskChol 201-239 mg/dl borderline riskChol 240 mg/dl and greater high risk Result Comment: Chol less than 200 mg/dl low risk Chol 201-239 mg/dl borderline risk Chol 240 mg/dl and greater high risk Performed By: #### H BSAG, SMAB, CERULOP, HBSAB, ALPHA PHEN, HBCAB, HCV RX PCR, NIYA CHOICE #### [facility] , #### PT, HEPATIC, CBC, LIPID, FE and TIBC, ALLYSON #### [facility] [address] [place] [address] [place] Cholesterol [Mass/Vol] Cholesterol [Mass /volume] in Serum or Plasma 140-200 [facility] Comment on above: Chol less than 200 m g/dl low riskChol 201-239 mg/dl borderline riskChol 240 mg/dl and greater high risk Cholesterol in HDL [Mass/vol ume] in Serum or PlasmaOrdered By: Wes Hadley on 02-28-2024 Cholesterol in HDL [Mass/Vol] Serum or plasma high density lipoprotein (HDL) cholesterol measurement 23-92 [facility] Comment on above: HDL CHOL ATP-III CLA SSIFICATION Cardiovascular RiskHDL > or equal to 60 mg/dL LOWHDL < 40 mg/dL HIGH Cholesterol in LDL Calc [Mas s/Vol]Ordered By: Wes Hadley on 02-28-2024 Cholesterol in LDL [Mass/Vol] 145 mg/dL High 0-100 [facility] Comment on above: LDL ATP III CLASSIFI CATIONLDL less than 100 mg/dL OptimalLDL 100-129 mg/dL Near or above optimalLDL 130-159 mg/dL Borderline highLDL 160-189 mg/dL HighLDL greater than 189 mg/dL Very high Cholesterol in LDL [Mass/Vol] Cholesterol in LDL [Mass/volume] in Serum or Plasma by calculation High 0-100 [facility] Comment on above: LDL ATP III CLASSIFI CATIONLDL less than 100 mg/dL OptimalLDL 100-129 mg/dL Near or above optimalLDL 130-159 mg/dL Borderline highLDL 160-189 mg/dL HighLDL greater than 189 mg/dL Very high Cholesterol in VLDL Calc [Ma ss/Vol]Ordered By: Wes Hadley on 02-28-2024 Cholesterol in VLDL [Mass/Vol] 24 mg/dL [facility] Cholesterol in VLDL [Mass/Vol] Cholesterol in VLDL [Mass/volume] in Serum or Plasma by calculation [facility] Complete Blood Count Auto Di ffon 02-28-2024 Mean Corpuscular HGB Conc 34.4 g/dL Normal 32.0-35.0 [facility] Comment on above: Performed By: #### H BSAG, SMAB, CERULOP, HBSAB, ALPHA PHEN, HBCAB, HCV RX PCR, NIYA CHOICE #### [facility] , #### PT, HEPATIC, CBC, LIPID, FE and TIBC, ALLYSON #### [facility] [address] NRBC% 0.1 /100{WBC} Normal 0-0.5 [facility] Comment on above: Performed By: #### H BSAG, SMAB, CERULOP, HBSAB, ALPHA PHEN, HBCAB, HCV RX PCR, NIYA CHOICE #### [facility] , #### PT, HEPATIC, CBC, LIPID, FE and TIBC, ALLYSON #### [facility] [address] [place] [address] [place] Eosinophils Auto (Bld) [#/Vo l]Ordered By: Wes Hadley on 02-28-2024 Eosinophils (Bld) [#/Vol] Automated eosinophil count 0.0-0.45 [facility] Eosinophils/100 WBC Auto (Bl d)Ordered By: Wes Hadley on 02-28-2024 Eosinophils/100 WBC (Bld) Automated eosinophil % . [facility] Erythrocyte distribution wid th Auto (RBC) [Ratio]Ordered By: Wes Hadley on 02-28-2024 Erythrocyte distribution width (RBC) [Ratio] Erythrocyte distribution width [Ratio] by Automated count 11.9-15.3 [facility] Erythrocyte distribution wid th [Ratio] by Automated countOrdered By: Wes Hadley on 02-28-2024 Erythrocyte distribution width (RBC) [Ratio] 14.4 % Normal 11.9-15.3 [facility] Comment on above: Performed By: #### H BSAG, SMAB, CERULOP, HBSAB, ALPHA PHEN, HBCAB, HCV RX PCR, NIYA CHOICE #### [facility] , #### PT, HEPATIC, CBC, LIPID, FE and TIBC, ALLYSON #### [facility] [address] [place] [address] Erythrocytes [#/volume] in B lood by Automated countOrdered By: Wes Hadley on 02-28-2024 RBC (Bld) [#/Vol] 3.52 10*6/uL Low 3.60-5.00 [facility] Comment on above: Performed By: #### H BSAG, SMAB, CERULOP, HBSAB, ALPHA PHEN, HBCAB, HCV RX PCR, NIYA CHOICE #### [facility] , #### PT, HEPATIC, CBC, LIPID, FE and TIBC, ALLYSON #### [facility] [address] [place] [address] [place] Ferritin [Mass/volume] in Se rum or PlasmaOrdered By: Wes Hadley on 02-28-2024 Ferritin [Mass/Vol] 46.0 ng/mL Normal 11.0-306.8 [facility] Comment on above: Performed By: #### H BSAG, SMAB, CERULOP, HBSAB, ALPHA PHEN, HBCAB, HCV RX PCR, NIYA CHOICE #### [facility] , #### PT, HEPATIC, CBC, LIPID, FE and TIBC, ALLYSON #### [facility] [address] Ferritin [Mass/Vol] Ferritin [Mass/volum e] in Serum or Plasma 11.0-306.8 [facility] Globulin Calc (S) [Mass/Vol] Ordered By: Wes Hadley on 02-28-2024 Globulin (S) [Mass/Vol] Serum globulin measurement by calculation (mass/volume) [facility] Hematocrit Auto (Bld) [Volum e fraction]Ordered By: Wes Hadley on 02-28-2024 Hematocrit (Bld) [Volume fraction] Hematocrit [Volume Fraction] of Blood by Automated count Low 34.0-46.4 [facility] Hematocrit [Volume Fraction] of Blood by Automated countOrdered By: Wes Hadley on 02-28-2024 Hematocrit (Bld) [Volume fraction] 33.8 % Low 34.0-46.4 [facility] Comment on above: Performed By: #### H BSAG, SMAB, CERULOP, HBSAB, ALPHA PHEN, HBCAB, HCV RX PCR, NIYA CHOICE #### [facility] , #### PT, HEPATIC, CBC, LIPID, FE and TIBC, ALLYSON #### [facility] [address] Hemoglobin [Mass/volume] in BloodOrdered By: Wes Hadley on 02-28-2024 Hemoglobin (Bld) [Mass/Vol] 11.6 g/dL Low 11.8-15.4 [facility] Comment on above: Performed By: #### H BSAG, SMAB, CERULOP, HBSAB, ALPHA PHEN, HBCAB, HCV RX PCR, NIYA CHOICE #### [facility] , #### PT, HEPATIC, CBC, LIPID, FE and TIBC, ALLYSON #### [address] Hemoglobin (Bld) [Mass/Vol] Hemoglobin [Mass/volume] in Blood Low 11.8-15.4 [facility] Hep C Ab wRfx to Qnt PCRon 0 02-28-2024 Hepatitis C Virus Antibody Non-Reactive Normal Non Reactive [facility] Comment on above: Performed By: #### H BSAG, SMAB, CERULOP, HBSAB, ALPHA PHEN, HBCAB, HCV RX PCR, NIYA CHOICE #### [facility] , #### PT, HEPATIC, CBC, LIPID, FE and TIBC, ALLYSON #### [address] Interpretation Hepatitis C Comment Normal . [facility] Comment on above: Result Comment: Not infected with HCV unless early or acute infection is suspected (which may be delayed in an immunocompromised individual), or other evidence exists to indicate HCV infection. Performed By: #### H BSAG, SMAB, CERULOP, HBSAB, ALPHA PHEN, HBCAB, HCV RX PCR, NIYA CHOICE #### [facility] , #### PT, HEPATIC, CBC, LIPID, FE and TIBC, ALLYSON #### [address] Hepatic Panelon 02-28-2024 Albumin [Mass/Vol] 3.1 g/dL Low 3.5-5.7 [facility] Comment on above: Performed By: #### H BSAG, SMAB, CERULOP, HBSAB, ALPHA PHEN, HBCAB, HCV RX PCR, NIYA CHOICE #### [facility] , #### PT, HEPATIC, CBC, LIPID, FE and TIBC, ALLYSON #### [address] Bilirubin,Indirect 2.2 mg/dL Normal [facility] Comment on above: Performed By: #### H BSAG, SMAB, CERULOP, HBSAB, ALPHA PHEN, HBCAB, HCV RX PCR, NIYA CHOICE #### [facility] , #### PT, HEPATIC, CBC, LIPID, FE and TIBC, ALLYSON #### [facility] [address] Bilirubin.indirect [Mass/Vol] 1.40 mg/dL High 0.03-0.18 [facility] Comment on above: Performed By: #### H BSAG, SMAB, CERULOP, HBSAB, ALPHA PHEN, HBCAB, HCV RX PCR, NIYA CHOICE #### [facility] , #### PT, HEPATIC, CBC, LIPID, FE and TIBC, ALLYSON #### [address] Hepatitis B Core Antibodyon 02-28-2024 Hepatitis B Core Antibody Negative Normal Negative [facility] Comment on above: Result Comment: Perf ormed at: [facility] [address] [id number] Burning Plant Operator: Gonzales Poe PhD, Phone: [phone] Performed By: #### H BSAG, SMAB, CERULOP, HBSAB, ALPHA PHEN, HBCAB, HCV RX PCR, NIYA CHOICE #### [facility] , #### PT, HEPATIC, CBC, LIPID, FE and TIBC, ALLYSON #### [address] Hepatitis B Surface Antibody on 02-28-2024 Hepatitis B Surface Antibody Non-Reactive Normal . [facility] Comment on above: Result Comment: Non Reactive: Not immune to HBV infection. Equivocal: Unable to determine if anti-HBs is present at levels consistent with immunity. Reactive: Anti-HBs concentration detected at greater than 10 mIU/mL. Individual is considered to be immune to infection with HBV. Performed By: #### H BSAG, SMAB, CERULOP, HBSAB, ALPHA PHEN, HBCAB, HCV RX PCR, NIYA CHOICE #### [facility] , #### PT, HEPATIC, CBC, LIPID, FE and TIBC, ALLYSON #### [address] Hepatitis B Surface Antigeno n 02-28-2024 HBsAg Screen Negative Normal Negative [facility] Comment on above: Result Comment: PERF ORMED BY: [place] [address] PATHOLOGIST SCARFING MACHINE OPERATOR SANGITA BLACK M.D. Performed By: #### H BSAG, SMAB, CERULOP, HBSAB, ALPHA PHEN, HBCAB, HCV RX PCR, NIYA CHOICE #### [facility] , #### PT, HEPATIC, CBC, LIPID, FE and TIBC, ALLYSON #### [facility] [address] Hepatitis B virus core antib [place] assayOrdered By: Wes Hadley on 02-28-2024 Hepatitis B Core Total Antibody Negative Negative [facility] Comment on above: Performed at: [address] [id number] Director: Gonzales Poe PhD, Phone: [phone] Hepatitis B virus surface Ab [Presence] in SerumOrdered By: Wes Hadley on 02-28-2024 HBV surface Ab Ql (S) Non-Reactive . [facility] Comment on above: Non Reactive: Not im mune to HBV infection. Equivocal: Unable to determine if anti-HBs is present at levels consistent with immunity. Reactive: Anti-HBs concentration detected at greater than 10 mIU/mL. Individual is considered to be immune to infection with HBV. Hepatitis B virus surface Ag [Presence] in Serum or Plasma by ImmunoassayOrdered By: Wes Hadley on 02-28-2024 HBV surface Ag IA Ql Negative Negative [facility] Hepatitis C virus IgG Ab [Pr esence] in Serum or Plasma by ImmunoassayOrdered By: Wes Hadley on 02-28-2024 HCV IgG IA Ql Non-Reactive Non Reactive [facility] HCV IgG IA Ql Hepatitis C virus Ig G Ab [Presence] in Serum or Plasma by Immunoassay Non Reactive [facility] INR in Platelet poor plasma by Coagulation assayOrdered By: Wes Hadley on 02-28-2024 INR Coag (PPP) [Relative time] 1.6 {INR} Normal [facility] Comment on above: INR Therapeutic Rang e A) Pre- and Peroperative OAT started two weeks before surgery. NOT HIP SURGERY: 1.5 - 2.5 HIP SURGERY: 2 - 3B) Primary and secondary prevention of venous THROMBOSIS: 2 - 3C) Active venous thrombosis, pulmonary embolismand prevention of recurrent venous thrombosis: 2 - 3D) Prevention of arterial thromboembolismincluding patients with mechanical heart valves: 3 - 4.5 Result Comment: INR Therapeutic Range A) Pre- and Peroperative OAT started two weeks before surgery. NOT HIP SURGERY: 1.5 - 2.5 HIP SURGERY: 2 - 3 B) Primary and secondary prevention of venous THROMBOSIS: 2 - 3 C) Active venous thrombosis, pulmonary embolism and prevention of recurrent venous thrombosis: 2 - 3 D) Prevention of arterial thromboembolism including patients with mechanical heart valves: 3 - 4.5 PERFORMED BY: [place] [address] PATHOLOGIST SCARFING MACHINE OPERATOR SANGITA BLACK M.D. Performed By: #### H BSAG, SMAB, CERULOP, HBSAB, ALPHA PHEN, HBCAB, HCV RX PCR, NIYA CHOICE #### [facility] , #### PT, HEPATIC, CBC, LIPID, FE and TIBC, ALLYSON #### [address] INR Coag (PPP) [Relative time] INR in Platelet poor plasma by Coagulation assay [facility] Comment on above: INR Therapeutic Rang e A) Pre- and Peroperative OAT started two weeks before surgery. NOT HIP SURGERY: 1.5 - 2.5 HIP SURGERY: 2 - 3B) Primary and secondary prevention of venous THROMBOSIS: 2 - 3C) Active venous thrombosis, pulmonary embolismand prevention of recurrent venous thrombosis: 2 - 3D) Prevention of arterial thromboembolismincluding patients with mechanical heart valves: 3 - 4.5 Iron [Mass/volume] in Serum or PlasmaOrdered By: Wes Hadley on 02-28-2024 Iron [Mass/Vol] 56 ug/dL Normal 50-212 [facility] Comment on above: Performed By: #### H BSAG, SMAB, CERULOP, HBSAB, ALPHA PHEN, HBCAB, HCV RX PCR, NIYA CHOICE #### [facility] , #### PT, HEPATIC, CBC, LIPID, FE and TIBC, ALLYSON #### [facility] [address] Iron [Mass/Vol] Iron [Mass/volume] i n Serum or Plasma 50-212 [facility] Iron and TIBC Profileon 02-18 0-2023 % Iron Saturation 21.1 % Normal 20-50 [facility] Comment on above: Performed By: #### H BSAG, SMAB, CERULOP, HBSAB, ALPHA PHEN, HBCAB, HCV RX PCR, NIYA CHOICE #### [facility] , #### PT, HEPATIC, CBC, LIPID, FE and TIBC, ALLYSON #### [facility] [address] Total Iron Binding Capacity 266 ug/dL Normal 255-450 [facility] Comment on above: Performed By: #### H BSAG, SMAB, CERULOP, HBSAB, ALPHA PHEN, HBCAB, HCV RX PCR, NIYA CHOICE #### [facility] , #### PT, HEPATIC, CBC, LIPID, FE and TIBC, ALLYSON #### [facility] [address] Iron binding capacity [Mass/ volume] in Serum or PlasmaOrdered By: Wes Hadley on 02-28-2024 Iron binding capacity [Mass/Vol] 266 ug/dL 255-450 [facility] Iron saturation [Mass Fracti on] in Serum or PlasmaOrdered By: Wes Hadley on 02-28-2024 Iron saturation [Mass fraction] 21.1 % 20-50 [facility] Leukocytes [#/volume] correc anthony for nucleated erythrocytes in Blood by Automated counOrdered By: Wes Hadley on 02-28-2024 WBC corrected for nucl RBC Auto (Bld) [#/Vol] 5.8 10*3/uL 3.8-11.6 [facility] WBC corrected for nucl RBC Auto (Bld) [#/Vol] Leukocytes [#/volume] corrected for nucleated erythrocytes in Blood by Automated coun 3.8-11.6 [facility] Leukocytes [#/volume] in Blo od by Automated countOrdered By: Wes Hadley on 02-28-2024 WBC (Bld) [#/Vol] 5.8 10*3/uL Normal 3.8-11.6 [facility] Comment on above: Performed By: #### H BSAG, SMAB, CERULOP, HBSAB, ALPHA PHEN, HBCAB, HCV RX PCR, NIYA CHOICE #### [facility] , #### PT, HEPATIC, CBC, LIPID, FE and TIBC, ALLYSON #### [facility] [address] Lipid Panelon 02-28-2024 LDL Cholesterol,Calculated 145 mg/dL High 0-100 [facility] Comment on above: Result Comment: LDL ATP III CLASSIFICATION LDL less than 100 mg/dL Optimal LDL 100-129 mg/dL Near or above optimal LDL 130-159 mg/dL Borderline high LDL 160-189 mg/dL High LDL greater than 189 mg/dL Very high Performed By: #### H BSAG, SMAB, CERULOP, HBSAB, ALPHA PHEN, HBCAB, HCV RX PCR, NIYA CHOICE #### [facility] , #### PT, HEPATIC, CBC, LIPID, FE and TIBC, ALLYSON #### [facility] [address] Triglyceride w/Reflex 123 mg/dL Normal 0-149 [facility] Comment on above: Result Comment: TRIG ATP III CLASSIFICATION TRIG less than 150 mg/dL Normal TRIG 150-199 mg/dL Borderline high TRIG 200-500 mg/dL High TRIG greater than 500 mg/dL Very high Standard traceable to the Center for Disease Conrtrol and Prevention (CDC) test method. Performed By: #### H BSAG, SMAB, CERULOP, HBSAB, ALPHA PHEN, HBCAB, HCV RX PCR, NIYA CHOICE #### [facility] , #### PT, HEPATIC, CBC, LIPID, FE and TIBC, ALLYSON #### [facility] [address] VLDL CHOLESTEROL 24 mg/dL Normal [facility] Comment on above: Performed By: #### H BSAG, SMAB, CERULOP, HBSAB, ALPHA PHEN, HBCAB, HCV RX PCR, NIYA CHOICE #### [facility] , #### PT, HEPATIC, CBC, LIPID, FE and TIBC, ALLYSON #### [facility] [address] Lymphocytes Auto (Bld) [#/Vo l]Ordered By: Wes Hadley on 02-28-2024 Lymphocytes (Bld) [#/Vol] Lymphocytes [#/volume] in Blood by Automated count 1.00-4.8 [facility] Lymphocytes [#/volume] in Bl ood by Automated countOrdered By: Wes Hadley on 02-28-2024 Lymphocytes (Bld) [#/Vol] 1.1 10*3/uL Normal 1.00-4.8 [facility] Comment on above: Performed By: #### H BSAG, SMAB, CERULOP, HBSAB, ALPHA PHEN, HBCAB, HCV RX PCR, NIYA CHOICE #### [facility] , #### PT, HEPATIC, CBC, LIPID, FE and TIBC, ALLYSON #### [facility] [address] [place] [address] [place] Lymphocytes/100 WBC Auto (Bl d)Ordered By: Wes Hadley on 02-28-2024 Lymphocytes/100 WBC (Bld) Lymphocytes/100 leukocytes in Blood by Automated count . [facility] Lymphocytes/100 leukocytes i n Blood by Automated countOrdered By: Wes Hadley on 02-28-2024 Lymphocytes/100 WBC (Bld) 19.4 % Normal . [facility] Comment on above: Performed By: #### H BSAG, SMAB, CERULOP, HBSAB, ALPHA PHEN, HBCAB, HCV RX PCR, NIYA CHOICE #### [facility] , #### PT, HEPATIC, CBC, LIPID, FE and TIBC, ALLYSON #### [facility] [address] [place] [address] MCH Auto (RBC) [Entitic mass ]Ordered By: Wes Hadley on 02-28-2024 MCH (RBC) [Entitic mass] MCH [Entitic mass] by Automated count 24.7-34.3 [facility] MCH [Entitic mass] by Automa anthony countOrdered By: Wes Hadley on 02-28-2024 MCH (RBC) [Entitic mass] 33.1 pg Normal 24.7-34.3 [facility] Comment on above: Performed By: #### H BSAG, SMAB, CERULOP, HBSAB, ALPHA PHEN, HBCAB, HCV RX PCR, NIYA CHOICE #### [facility] , #### PT, HEPATIC, CBC, LIPID, FE and TIBC, ALLYSON #### [facility] [address] MCHC Auto (RBC) [Mass/Vol]Or dered By: Wes Hadley on 02-28-2024 MCHC (RBC) [Mass/Vol] 34.4 g/dL 32.0-35.0 [facility] MCHC (RBC) [Mass/Vol] MCHC [Mass/volume] by Automated count 32.0-35.0 [facility] MCV Auto (RBC) [Entitic vol] Ordered By: Wes Hadley on 02-28-2024 MCV (RBC) [Entitic vol] MCV [Entitic volume] by Automated count 80-100 [facility] MCV [Entitic volume] by Auto mated countOrdered By: Wes Hadley on 02-28-2024 MCV (RBC) [Entitic vol] 96.0 fL Normal 80-100 [facility] Comment on above: Performed By: #### H BSAG, SMAB, CERULOP, HBSAB, ALPHA PHEN, HBCAB, HCV RX PCR, NIYA CHOICE #### [facility] , #### PT, HEPATIC, CBC, LIPID, FE and TIBC, ALLYSON #### [facility] [address] Monocytes Auto (Bld) [#/Vol] Ordered By: Wes Hadley on 02-28-2024 Monocytes (Bld) [#/Vol] Automated blood monocyte count 0.0-0.8 [facility] Monocytes/100 WBC Auto (Bld) Ordered By: Wes Hadley on 02-28-2024 Monocytes/100 WBC (Bld) Automated monocyte % . [facility] Neutrophils Auto (Bld) [#/Vo l]Ordered By: Wes Hadley on 02-28-2024 Neutrophils (Bld) [#/Vol] Neutrophils [#/volume] in Blood by Automated count 1.8-7.7 [facility] Neutrophils [#/volume] in Bl ood by Automated countOrdered By: Wes Hadley on 02-28-2024 Neutrophils (Bld) [#/Vol] 3.9 10*3/uL Normal 1.8-7.7 [facility] Comment on above: Performed By: #### H BSAG, SMAB, CERULOP, HBSAB, ALPHA PHEN, HBCAB, HCV RX PCR, NIYA CHOICE #### [facility] , #### PT, HEPATIC, CBC, LIPID, FE and TIBC, ALLYSON #### [facility] [address] [place] [address] Neutrophils/100 WBC Auto (Bl d)Ordered By: Wes Hadley on 02-28-2024 Neutrophils/100 WBC (Bld) Automated neutrophil % . [facility] No Panel InformationOrdered By: Wes Hadley on 02-28-2024 Hepatitis C Interpretation Comment . [facility] Comment on above: Not infected with HC V unless early or acute infection issuspected (which may be delayed in an immunocompromisedindividual), or other evidence exists to indicate HCVinfection. Nucleated erythrocytes [Pres ence] in Blood by Automated countOrdered By: Wes Hadley on 02-28-2024 Nucleated RBC Auto Ql (Bld) 0.1 /100{WBC} 0-0.5 [facility] Nucleated RBC Auto Ql (Bld) Nucleated erythrocytes [Presence] in Blood by Automated count 0-0.5 [facility] Platelet mean volume Auto (B ld) [Entitic vol]Ordered By: Wes Hadley on 02-28-2024 Platelet mean volume (Bld) [Entitic vol] Platelet mean volume [Entitic volume] in Blood by Automated count 6.3-10.7 [facility] Platelet mean volume [Entiti c volume] in Blood by Automated countOrdered By: Wes Hadley on 02-28-2024 Platelet mean volume (Bld) [Entitic vol] 7.8 fL Normal 6.3-10.7 [facility] Comment on above: Performed By: #### H BSAG, SMAB, CERULOP, HBSAB, ALPHA PHEN, HBCAB, HCV RX PCR, NIYA CHOICE #### [facility] , #### PT, HEPATIC, CBC, LIPID, FE and TIBC, ALLYSON #### [facility] [address] [place] [address] [place] Platelets Auto (Bld) [#/Vol] Ordered By: Wes Hadley on 02-28-2024 Platelets (Bld) [#/Vol] Platelets [#/volume] in Blood by Automated count 150-450 [facility] Platelets [#/volume] in Bloo d by Automated countOrdered By: Wes Hadley on 02-28-2024 Platelets (Bld) [#/Vol] 205 10*3/uL Normal 150-450 [facility] Comment on above: Performed By: #### H BSAG, SMAB, CERULOP, HBSAB, ALPHA PHEN, HBCAB, HCV RX PCR, NIYA CHOICE #### [facility] , #### PT, HEPATIC, CBC, LIPID, FE and TIBC, ALLYSON #### [facility] [address] [place] [address] [place] Protein [Mass/volume] in Ser um or PlasmaOrdered By: Wes Hadley on 02-28-2024 Protein [Mass/Vol] 6.8 g/dL Normal 6.4-8.9 [facility] Comment on above: Performed By: #### H BSAG, SMAB, CERULOP, HBSAB, ALPHA PHEN, HBCAB, HCV RX PCR, NIYA CHOICE #### [facility] , #### PT, HEPATIC, CBC, LIPID, FE and TIBC, ALLYSON #### [facility] [address] [place] [id number] [place] Protein [Mass/Vol] Protein [Mass/volume ] in Serum or Plasma 6.4-8.9 [facility] Prothrombin time (PT)Ordered By: Wes Hadley on 02-28-2024 PT Coag (PPP) [Time] 18.5 s High 9.0-12.9 [facility] Comment on above: A hematocrit value g reater than 55% may lead to inaccurate results in coagulation testing. Patients having hematocrit values >55% require a special collection tube for coagulation studies. Please contact the laboratory at [phone] for redraw instructions. Result Comment: A he matocrit value greater than 55% may lead to inaccurate results in coagulation testing. Patients having hematocrit values >55% require a special collection tube for coagulation studies. Please contact the laboratory at [phone] for redraw instructions. Performed By: #### H BSAG, SMAB, CERULOP, HBSAB, ALPHA PHEN, HBCAB, HCV RX PCR, NIYA CHOICE #### [facility] , #### PT, HEPATIC, CBC, LIPID, FE and TIBC, ALLYSON #### [facility] [address] [place] [address] [facility] PT Coag (PPP) [Time] Prothrombin time (PT) High 9.0- 12.9 [facility] Comment on above: A hematocrit value g reater than 55% may lead to inaccurate results in coagulation testing. Patients having hematocrit values >55% require a special collection tube for coagulation studies. Please contact the laboratory at [phone] for redraw instructions. RBC Auto (Bld) [#/Vol]Ordere d By: Wes Hadley on 02-28-2024 RBC (Bld) [#/Vol] Erythrocytes [#/volu me] in Blood by Automated count Low 3.60-5.00 [facility] Serum yiyep-8-eyqsyktqeeh me asurementOrdered By: Wes Hadley on 02-28-2024 Alpha 1 antitrypsin [Mass/Vol] 233 mg/dL High 101-187 [facility] Serum globulin measurement b y calculation (mass/volume)Ordered By: Wes Hadley on 09-10-2024 Globulin (S) [Mass/Vol] 3.7 g/dL Normal [facility] Comment on above: Performed By: #### H BSAG, SMAB, CERULOP, HBSAB, ALPHA PHEN, HBCAB, HCV RX PCR, NIYA CHOICE #### [facility] , #### PT, HEPATIC, CBC, LIPID, FE and TIBC, ALLYSON #### [facility] [address] Serum hepatitis B virus surf shiv antibody detectionOrdered By: Wes Hadley on 02-28-2024 HBV surface Ab Ql (S) Hepatitis B virus surface Ab [Presence] in Serum . [facility] Comment on above: Non Reactive: Not im mune to HBV infection. Equivocal: Unable to determine if anti-HBs is present at levels consistent with immunity. Reactive: Anti-HBs concentration detected at greater than 10 mIU/mL. Individual is considered to be immune to infection with HBV. Serum or plasma albumin/glob ulin mass ratioOrdered By: Wes Hadley on 02-28-2024 Albumin/Globulin [Mass ratio] 0.8 {ratio} Normal [facility] Comment on above: Performed By: #### H BSAG, SMAB, CERULOP, HBSAB, ALPHA PHEN, HBCAB, HCV RX PCR, NIYA CHOICE #### [facility] , #### PT, HEPATIC, CBC, LIPID, FE and TIBC, ALLYSON #### [facility] [address] Albumin/Globulin [Mass ratio] Serum or plasma albumin/globulin mass ratio [facility] Serum or plasma alpha 1 anti trypsin measurement (mass/volume)Ordered By: Wes Hadley on 02-28-2024 Alpha 1 antitrypsin [Mass/Vol] Serum zxosi-0-dikzopkjbsy measurement High 101-187 [facility] Serum or plasma alpha 1 anti trypsin phenotyping identification by immunofixationOrdered By: Wes Hadley on 02-28-2024 Alpha 1 antitrypsin phenotyping Immunofixation Nom Mm . [facility] Comment on above: MM Phenotype is co nsidered to be normal , producingnormal serum levels of zoped-3-ytpnnpvy inhibitor andnot associated with clinical disease. Associated Z2Psnkde serum levels in other phenotypes and theirincidence in the general population are shown in thetable below.Phenotype Population % function A-1-AT Conc.* Incidence % compared to MM (Typical Range) MM 86.5% 100% (96 - 189) MS 8.0% 86% (83 - 161) MZ 3.9% 61% (60 - 111) FM 0.4% 100% (93 - 191) SZ 0.3% 41% (42 - 75) SS 0.1% 64% (62 - 119) ZZ 0.05% 19% (16 - 38) FS 0.05% 70% (70 - 128) FZ Unknown 46% (44 - 88) FF Unknown Unknown*A-1-AT concentration in the homozygous MM phenotype is taken as the reference normal. Percent deficiency in each phenotype is reported relative to this reference. Ranges used to confirm phenotype.Performed at: [employer] [address] [id number] Director: Gonzales Poe PhD, Phone: [phone] at: [facility] [employer] [id number] Director: Ankita Ruelas MD, Phone: [phone] Alpha 1 antitrypsin phenotyping Immunofixation Nom Serum or plasma alpha 1 antitrypsin phenotyping identification by immunofixation . [facility] Comment on above: MM Phenotype is co nsidered to be normal , producingnormal serum levels of fuidd-8-lszwfflu inhibitor andnot associated with clinical disease. Associated A1Qyrmmu serum levels in other phenotypes and theirincidence in the general population are shown in thetable below.Phenotype Population % function A-1-AT Conc.* Incidence % compared to MM (Typical Range) MM 86.5% 100% (96 - 189) MS 8.0% 86% (83 - 161) MZ 3.9% 61% (60 - 111) FM 0.4% 100% (93 - 191) SZ 0.3% 41% (42 - 75) SS 0.1% 64% (62 - 119) ZZ 0.05% 19% (16 - 38) FS 0.05% 70% (70 - 128) FZ Unknown 46% (44 - 88) FF Unknown Unknown*A-1-AT concentration in the homozygous MM phenotype is taken as the reference normal. Percent deficiency in each phenotype is reported relative to this reference. Ranges used to confirm phenotype.Performed at: [facility] [employer] [id number] Director: Gonzales Poe PhD, Phone: [phone] at: [address] [id number] Director: Ankita Ruelas MD, Phone: [phone] Serum or plasma ceruloplasmi n measurement (mass/volume)Ordered By: Wes Hadley on 02-28-2024 Ceruloplasmin [Mass/Vol] 22.9 mg/dL 19.0-39.0 [facility] Comment on above: Performed at: [email or web address] [address] [id number] Director: Gonzales Poe PhD, Phone: [phone] Ceruloplasmin [Mass/Vol] Serum or plasma ceruloplasmin measurement (mass/volume) 19.0-39.0 [facility] Comment on above: Performed at: [email or web address] [address] [id number] Director: Gonzales Poe PhD, Phone: [phone] Serum or plasma free cefurox nilam measurement (mass/volume)Ordered By: Wes Hadley on 02-28-2024 Cefuroxime free [Mass/Vol] Negative Negative [facility] Comment on above: Performed at: [employer] [place] [id number] Director: Gonzales Poe PhD, Phone: [phone] Cefuroxime free [Mass/Vol] Serum or plasma free cefuroxime measurement (mass/volume) Negative [facility] Comment on above: Performed at: [employer] [id number] Director: Gonzales Poe PhD, Phone: [phone] Serum or plasma hepatitis B virus surface antigen detection by immunoassayOrdered By: Wes Hadley on 09-10-2024 HBV surface Ag IA Ql Hepatitis B virus s urface Ag [Presence] in Serum or Plasma by Immunoassay Negative [facility] Serum or plasma high density lipoprotein (HDL) cholesterol measurementOrdered By: Wes Hadley on 02-28-2024 Cholesterol in HDL [Mass/Vol] 24 mg/dL Normal 23-92 [facility] Comment on above: HDL CHOL ATP-III CLA SSIFICATION Cardiovascular RiskHDL > or equal to 60 mg/dL LOWHDL < 40 mg/dL HIGH Result Comment: HDL CHOL ATP-III CLASSIFICATION Cardiovascular Risk HDL > or equal to 60 mg/dL LOW HDL < 40 mg/dL HIGH Performed By: #### H BSAG, SMAB, CERULOP, HBSAB, ALPHA PHEN, HBCAB, HCV RX PCR, NIYA CHOICE #### [facility] , #### PT, HEPATIC, CBC, LIPID, FE and TIBC, ALLYSON #### [facility] [address] Serum or plasma iron binding capacity measurement (mass/volume)Ordered By: Wes Hadley on 02-28-2024 Iron binding capacity [Mass/Vol] Iron binding capacity [Mass/volume] in Serum or Plasma 255-450 [facility] Serum or plasma iron saturat ion measurement (mass fraction)Ordered By: Wes Hadley on 02-28-2024 Iron saturation [Mass fraction] Iron saturation [Mass Fraction] in Serum or Plasma 20-50 [facility] Serum or plasma non-glucuron idated bilirubin measurement (mass/volume)Ordered By: Wes Hadley on 02-28-2024 Bilirubin.indirect [Mass/Vol] 2.2 mg/dL [facility] Bilirubin.indirect [Mass/Vol] Serum or plasma non-glucuronidated bilirubin measurement (mass/volume) [facility] Serum or plasma total choles terol/high density lipoprotein (HDL) cholesterol mass ratOrdered By: Wes Hadley on 02-28-2024 Cholesterol.total/Chol esterol in HDL [Mass ratio] 8.1 {ratio} Normal <5.0 [facility] Comment on above: Result Comment: PERF ORMED BY: [facility] [address] [place] [address] PATHOLOGIST SCARFING MACHINE OPERATOR SANGITA BLACK M.D. Performed By: #### H BSAG, SMAB, CERULOP, HBSAB, ALPHA PHEN, HBCAB, HCV RX PCR, NIYA CHOICE #### [facility] , #### PT, HEPATIC, CBC, LIPID, FE and TIBC, ALLYSON #### [address] Cholesterol.total/Chol esterol in HDL [Mass ratio] Serum or plasma total cholesterol/high density lipoprotein (HDL) cholesterol mass rat <5.0 [facility] Smooth Muscle Antibodyon Smooth Muscle Antibody 18 Normal 0-19 e [facility] Comment on above: Result Comment: Nega tive 0 - 19 Weak positive 20 - 30 Moderate to strong positive >30 Actin Antibodies are found in 52-85% of patients with autoimmune hepatitis or chronic active hepatitis and in 22% of patients with primary biliary cirrhosis. Performed at: [address] [id number] [employer] Operator: Gonzales Poe PhD, Phone: [phone] PERFORMED BY: [place] [address] PATHOLOGIST SCARFING MACHINE OPERATOR SANGITA BLACK M.D. Performed By: #### H BSAG, SMAB, CERULOP, HBSAB, ALPHA PHEN, HBCAB, HCV RX PCR, NIYA CHOICE #### [facility] , #### PT, HEPATIC, CBC, LIPID, FE and TIBC, ALLYSON #### [address] Transferrin [Mass/volume] in Serum or PlasmaOrdered By: Wes Hadley on 02-28-2024 Transferrin [Mass/Vol] 190 mg/dL Low 203-362 [facility] Comment on above: Performed By: #### H BSAG, SMAB, CERULOP, HBSAB, ALPHA PHEN, HBCAB, HCV RX PCR, NIYA CHOICE #### [facility] , #### PT, HEPATIC, CBC, LIPID, FE and TIBC, ALLYSON #### [facility] [address] [place] [id number] [facility] Transferrin [Mass/Vol] Transferrin [Mass /volume] in Serum or Plasma Low 203-362 [facility] Triglyceride [Mass/volume] i n Serum or PlasmaOrdered By: Wes Hadley on 02-28-2024 Triglyceride [Mass/Vol] 123 mg/dL 0-149 [facility] Comment on above: TRIG ATP III CLASSIF ICATIONTRIG less than 150 mg/dL NormalTRIG 150-199 mg/dL Borderline highTRIG 200-500 mg/dL High TRIG greater than 500 mg/dL Very highStandard traceable to the Center for Disease Conrtrol and Prevention (CDC) test method. Triglyceride [Mass/Vol] Triglyceride [Mass/volume] in Serum or Plasma 0-149 [facility] Comment on above: TRIG ATP III CLASSIF ICATIONTRIG less than 150 mg/dL NormalTRIG 150-199 mg/dL Borderline highTRIG 200-500 mg/dL High TRIG greater than 500 mg/dL Very highStandard traceable to the Center for Disease Conrtrol and Prevention (CDC) test method. WBC Auto (Bld) [#/Vol]Ordere d By: Wes Hadley on 02-28-2024 WBC (Bld) [#/Vol] Leukocytes [#/volume ] in Blood by Automated count 3.8-11.6 [facility] Documentationon 01-19-2024 Documentation [id number] Jose Alejandro Bhakta 1965 F Date Provider Department Center 01/19/2024 JAREN CHUNG [facility] [place] [facility] Family History Family history unknown: Yes Normal [facility] MG MAMM SCREEN 3D ALEX CADon 08-02-2022 MG MAMM SCREEN 3D ALEX CAD Patient: MADYSON BHAKTAIDI VargheseDonn Exam Date: 08/02/2022 : 1965 Gender:F Ordering : DR BRYSON RODRIGUEZ M.D. Admission #: [id number] Family : Order #: [id number] CLICK HERE TO VIEW EXAM RADIOLOGY REPORT [...] Treatments None Family Cancers None LOCATION: [facility] BREAST COMPOSITION: Extremely dense, which lowers the [...] Burleson MD on 08/02/2022 at 11:36 Normal [facility] FEMUR RIGHT 2 VWSon 02-12-20 22 FEMUR RIGHT 2 S [facility] Department of Radiology [address] [place] [phone] Patient Name: BERNADINE BHAKTA : 1965 Sex: F Age: Race: White Pt. Location: Patient Status: D Ordered Date: 02/11/2022 9:15:00 AM Completed Date: 02/11/2022 09:18 AM Requesting Provider: BECK DELACRUZ Attending Provider: BECK DELACRUZ Report Copy To: Signs & Symptoms: Z48.89 Encounter for other specified surgical aftercare History: Comments: Evaluate Exam: FEMUR RIGHT 2 S FEMUR RIGHT 2 VWS 02/11/2022 9:20 AM [...] report. Electronically signed: Cherie Coronel. Transcribed by: [email or web address], User Resident: PHILIP ARMANDO Electronically Signed by: CHERIE CORONEL @ 02/12/2022 03:34 PM I personally read this/these film(s) with this resident Normal [facility] Comment on above: Order Comment: Yes: Add to Previous draw if able FEMUR RIGHT 2 VWSon 01-22-20 22 FEMUR RIGHT 2 VWS [facility] Department of Radiology [address] [place] [phone] Patient Name: BERNADINE BHAKTA : 1965 Sex: F Age: Race: White Pt. Location: Patient Status: O Ordered Date: 01/21/2022 8:45:00 AM Completed Date: 01/21/2022 08:48 AM Requesting Provider: BECK DELACRUZ Attending Provider: BECK DELACRUZ Report Copy To: Signs & Symptoms: [...] above. Electronically signed: Joe Rueda. Transcribed by: [email or web address], User Resident: Electronically Signed by: JOE RUEDA @ 01/21/2022 09:27 AM Normal [facility] Comment on above: Order Comment: No: D o not add to previous draw BASIC METABOLIC PANELon 07-2 Calcium [Mass/Vol] 8.8 mg/dL Normal 8.6-10.3 [facility] Comment on above: Order Comment: Yes: Add to Previous draw if able Performed By: #### 0 0071 #### [facility] [address] [place] [address], [place] Chloride [Moles/Vol] 99 mmol/L Normal 98-107 [facility] Comment on above: Order Comment: Yes: Add to Previous draw if able Performed By: #### 0 0071 #### [facility] [address] [place] [address], [place] CO2 [Moles/Vol] 23 mmol/L Normal 21-31 [facility] Comment on above: Order Comment: Yes: Add to Previous draw if able Performed By: #### 0 0071 #### [facility] [address] [place] [address], [place] Creatinine [Mass/Vol] 0.81 mg/dL Normal 0.60-1.20 [facility] Comment on above: Order Comment: Yes: Add to Previous draw if able Performed By: #### 0 0071 #### [facility] [address] [place] [address], [place] GFR/1.73 sq M.predicted among blacks MDRD (S/P/Bld) [Vol rate/Area] mL/min/{1.73_m2} Normal >60 [facility] Comment on above: Order Comment: Yes: Add to Previous draw if able Performed By: #### 0 0071 #### [facility] [address] [place] [address], [place] GFR/1.73 sq M.predicted among non-blacks MDRD (S/P/Bld) [Vol rate/Area] mL/min/{1.73_m2} Normal >60 [facility] Comment on above: Order Comment: Yes: Add to Previous draw if able Performed By: #### 0 0071 #### [facility] [address] [place] [address], [place] Glucose [Mass/Vol] 155 mg/dL High 70-100 [facility] Comment on above: Order Comment: Yes: Add to Previous draw if able Performed By: #### 0 0071 #### [facility] [address] [place] [address], [place] Potassium [Moles/Vol] 3.6 mmol/L Normal 3.5-5.1 [facility] Comment on above: Order Comment: Yes: Add to Previous draw if able Performed By: #### 0 0071 #### [facility] [address] [place] [address], [facility] Sodium [Moles/Vol] 134 mmol/L Low 136-145 [facility] Comment on above: Order Comment: Yes: Add to Previous draw if able Performed By: #### 0 0071 #### [facility] [address] [place] [address], [facility] Urea nitrogen [Mass/Vol] 7 mg/dL Normal 7-25 [facility] Comment on above: Order Comment: Yes: Add to Previous draw if able Performed By: #### 0 0071 #### [facility] [address] [place] [address], [facility] POC GLUCOSE LABon 01-09-2022 Glucose [Mass/Vol] 105 mg/dL High 70-100 [facility] Comment on above: Performed By: #### 0 0071 #### [facility] [address] [place] [address], [place] Glucose [Mass/Vol] 165 mg/dL High 70-100 [facility] Comment on above: Performed By: #### 0 0071 #### [facility] [address] [facility] [place] [address], [facility] BASIC METABOLIC PANELon 12-19 Calcium [Mass/Vol] 9.3 mg/dL Normal 8.6-10.3 [facility] Comment on above: Order Comment: Unkno wn Performed By: #### 0 0071 #### [facility] [address] [place] [address], [place] Chloride [Moles/Vol] 98 mmol/L Normal 98-107 [facility] Comment on above: Order Comment: Unkno wn Performed By: #### 0 0071 #### [facility] [address] [place] [address], [place] CO2 [Moles/Vol] 26 mmol/L Normal 21-31 [facility] Comment on above: Order Comment: Unkno wn Performed By: #### 0 0071 #### [facility] [address] [place] [address], [facility] Creatinine [Mass/Vol] 0.60 mg/dL Normal 0.60-1.20 [facility] Comment on above: Order Comment: Unkno wn Performed By: #### 0 0071 #### [facility] [address] [place] [address], [place] GFR/1.73 sq M.predicted among blacks MDRD (S/P/Bld) [Vol rate/Area] mL/min/{1.73_m2} Normal >60 [facility] Comment on above: Order Comment: Unkno wn Performed By: #### 0 0071 #### [facility] [address] [place] [address], [place] GFR/1.73 sq M.predicted among non-blacks MDRD (S/P/Bld) [Vol rate/Area] mL/min/{1.73_m2} Normal >60 [facility] Comment on above: Order Comment: Unkno wn Performed By: #### 0 0071 #### [facility] [address] [place] [address], [place] Glucose [Mass/Vol] 124 mg/dL High 70-100 [facility] Comment on above: Order Comment: Unkno wn Performed By: #### 0 0071 #### [facility] [address] [place] [address], [place] Potassium [Moles/Vol] 4.4 mmol/L Normal 3.5-5.1 [facility] Comment on above: Order Comment: Unkno wn Performed By: #### 0 0071 #### [facility] [address] [place] [address], [place] Sodium [Moles/Vol] 133 mmol/L Low 136-145 [facility] Comment on above: Order Comment: Unkno wn Performed By: #### 0 0071 #### [facility] [address] [facility] Urea nitrogen [Mass/Vol] 5 mg/dL Low 7-25 [facility] Comment on above: Order Comment: Unkno wn Performed By: #### 0 0071 #### [facility] [address] [facility] CBC COMPLETE BLOOD COUNTon 0 01-08-2022 Erythrocyte distribution width (RBC) [Ratio] 13.1 % Normal 11.5-15.0 [facility] Comment on above: Order Comment: No: D o not add to previous draw Performed By: #### 0 0071 #### [facility] [address] Hematocrit (Bld) [Volume fraction] 35.9 % Low 36.0-45.0 [facility] Comment on above: Order Comment: No: D o not add to previous draw Performed By: #### 0 0071 #### [facility] [facility] [place] [address] [facility]. [address] Hemoglobin (Bld) [Mass/Vol] 11.9 g/dL Low 12.0-15.0 The [facility] Comment on above: Order Comment: No: D o not add to previous draw Performed By: #### 0 0071 #### [facility] [place] [address] [place] [address], [facility] MCH (RBC) [Entitic mass] 34.2 pg High 27.0-33.0 The [facility] Comment on above: Order Comment: No: D o not add to previous draw Performed By: #### 0 0071 #### [facility] [place] [address] [place] [address], [facility] MCHC (RBC) [Mass/Vol] 33.1 g/dL Normal 32.0-35.0 The [facility] Comment on above: Order Comment: No: D o not add to previous draw Performed By: #### 0 0071 #### [facility] [place] [address] [facility] [place] [address], [facility] MCV (RBC) [Entitic vol] 103.2 fL High 82.0-98.0 The [facility] Comment on above: Order Comment: No: D o not add to previous draw Performed By: #### 0 0071 #### [facility] [place] [address] [place] [address], [facility] Nucleated RBC/100 WBC (Bld) [Ratio] 0 % Normal 0-0 The [facility] Comment on above: Order Comment: No: D o not add to previous draw Performed By: #### 0 0071 #### [facility] [place] [address] [place] [address], [facility] PLAT CNT 175 10*3/uL Normal 150-400 [facility] Comment on above: Order Comment: No: D o not add to previous draw Performed By: #### 0 0071 #### [facility] [place] [address] [place] [address], [facility] RBC (Bld) [#/Vol] 3.48 10*6/uL Low 3.80-5.00 The [facility] Comment on above: Order Comment: No: D o not add to previous draw Performed By: #### 0 0071 #### [facility] [place] [address] [place] [address], [facility] WBC (Bld) [#/Vol] 8.17 10*3/uL Normal 4.00-10.60 The [facility] Comment on above: Order Comment: No: D o not add to previous draw Performed By: #### 0 0071 #### [facility] [place] [address] [place] [address], [facility] FEMUR RIGHT 2 VWSon 01-09-20 22 FEMUR RIGHT 2 VWS [facility] Department of Radiology [address] [place] [id number] Patient Name: BERNADINE BHAKTA : 1965 Sex: F Age: Race: White Pt. Location: [id number] Patient Status: I Ordered Date: 01/08/2022 1:30:00 PM Completed Date: 01/08/2022 12:36 PM Requesting Provider: BECK DELACRUZ Attending Provider: BECK DELACRUZ Report Copy To: Signs & Symptoms: ORIF RIGHT DISTAL FEMUR History: Comments: ORIF RIGHT DISTAL FEMUR Exam: FEMUR RIGHT 2 S FEMUR RIGHT 2 VWS 01/08/2022 12:36 PM [...] submitted Electronically signed: Kat Newton. Transcribed by: [email or web address], User Resident: Electronically Signed by: KAT NEWTON @ 01/08/2022 01:03 PM Normal [facility] Comment on above: Order Comment: No: D o not add to previous draw Operative Reporton 2 Operative Report MR#: [id number] I [facility] Pt. Name: Bernadine Bhakta Room #: [id number] Discharge Date: Birthdate: 1965 OPERATIVE REPORT DATE OF SURGERY: 01/08/2022 SURGEON: Beck Delacruz M.D. PRE PROCEDURE DIAGNOSIS: Right intra-articular [...] fracture after a fall. She presented to [facility] Emergency Department, where x-rays were obtained demonstrating [...] DVT (more content not included)... Normal [facility] POC GLUCOSE LABon 01-08-2022 Glucose [Mass/Vol] 141 mg/dL High 70-100 The [facility] Comment on above: Performed By: #### 3 1400, 85099, 27905 #### [facility] [place] [address] [place] [address], [facility] Glucose [Mass/Vol] 227 mg/dL High 70-100 The [facility] Comment on above: Performed By: #### 3 1400, 36989, 66610 #### [facility] [place] [address] [facility] [address], [facility] Glucose [Mass/Vol] 158 mg/dL High 70-100 The [facility] Comment on above: Performed By: #### 3 1400, 89911, 55835 #### [facility] [place] [address] [facility]. [address] *MRSA/MSSA DNA NASALon 01-07 *MRSA/MSSA DNA NASAL Clinical Report: (D ) Specimen/Source: NASAL SWAB/NARES Collected: 01/07/2022 07:45 Status: Final Last Updated: 01/08/2022 20:33 MSSA DNA (Final) Methicillin Susceptible Staphylococcus aureus DNA Detected MRSA DNA (Final) Negative Normal [facility] Comment on above: Performed By: #### 3 1400, 30546, 25709 #### [facility] [place] [address] [facility]. [address] APTTon 01-07-2022 aPTT Coag (Bld) [Time] 35.6 s High 25.0-35.0 Th e [facility] Comment on above: Result Comment: ALL RESULTS [...] THIS PURPOSE. Performed By: #### 3 1400, 84043, 48860 #### [facility] [place] [address] [place] [address], [facility] BASIC METABOLIC PANELon 12-19 Calcium [Mass/Vol] 9.2 mg/dL Normal 8.6-10.3 The [facility] Comment on above: Order Comment: No: D o not add to previous draw Performed By: #### 0 0071 #### [facility] [place] [address] [place] [address], [place] Chloride [Moles/Vol] 98 mmol/L Normal 98-107 The [facility] Comment on above: Order Comment: No: D o not add to previous draw Performed By: #### 0 0071 #### [facility] [place] [address] [place] [address], [place] CO2 [Moles/Vol] 24 mmol/L Normal 21-31 The [facility] Comment on above: Order Comment: No: D o not add to previous draw Performed By: #### 0 0071 #### [facility] [place] [address] [place] [address], [place] Creatinine [Mass/Vol] 0.57 mg/dL Low 0.60-1.20 The [facility] Comment on above: Order Comment: No: D o not add to previous draw Performed By: #### 0 0071 #### [facility] [place] [address] [place] [address], [place] GFR/1.73 sq M.predicted among blacks MDRD (S/P/Bld) [Vol rate/Area] mL/min/{1.73_m2} Normal >60 The [facility] Comment on above: Order Comment: No: D o not add to previous draw Performed By: #### 0 0071 #### [facility] [place] [address] [place] [address], [place] GFR/1.73 sq M.predicted among non-blacks MDRD (S/P/Bld) [Vol rate/Area] mL/min/{1.73_m2} Normal >60 The [facility] Comment on above: Order Comment: No: D o not add to previous draw Performed By: #### 0 0071 #### [facility] [place] [address] Glucose [Mass/Vol] 146 mg/dL High 70-100 [facility] Comment on above: Order Comment: No: D o not add to previous draw Performed By: #### 0 0071 #### [facility] [place] [address] [place] [address], [facility] Potassium [Moles/Vol] 4.5 mmol/L Normal 3.5-5.1 The [facility] Comment on above: Order Comment: No: D o not add to previous draw Performed By: #### 0 0071 #### [facility] [place] [address] [facility]. [address] Sodium [Moles/Vol] 133 mmol/L Low 136-145 [facility] Comment on above: Order Comment: No: D o not add to previous draw Performed By: #### 0 0071 #### [facility] [place] [address] [facility]. [address] Urea nitrogen [Mass/Vol] 5 mg/dL Low 7-25 [facility] Comment on above: Order Comment: No: D o not add to previous draw Performed By: #### 0 0071 #### [facility] [place] [address] [place] [address], [facility] CBC W/DIFFon 01-07-2022 ABS IMM GRANS 0.0 10*3/uL Normal 0.0-0.2 The [facility] Comment on above: Performed By: #### 3 1400, 46141, 23172 #### [facility] [place] [address] [place] [address], [facility] ABS NEUTROPHILS 4.5 10*3/uL Normal 1.6-7.6 The [facility] Comment on above: Performed By: #### 3 1400, 51536, 04545 #### [facility] [place] [address] [place] [address], [facility] Basophils (Bld) [#/Vol] 0.0 10*3/uL Normal 0.0-0.2 The [facility] Comment on above: Performed By: #### 3 1400, 51586, 06241 #### [facility] [place] [address] [place] [address], [facility] Basophils/100 WBC (Bld) 0.7 % Normal 0.0-1.0 The [facility] Comment on above: Performed By: #### 3 1400, 11227, 89888 #### [facility] [place] [address] [place] [address], [facility] Eosinophils (Bld) [#/Vol] 0.0 10*3/uL Normal 0.0-0.5 The [facility] Comment on above: Performed By: #### 3 1399, , 92171 #### [facility] [place] [address] [place] [address], [facility] Eosinophils/100 WBC (Bld) 0.3 % Normal 0.0-6.0 The [facility] Comment on above: Performed By: #### 3 1399, , 07919 #### [facility] [place] [address] [place] [address], [facility] Erythrocyte distribution width (RBC) [Ratio] 13.2 % Normal 11.5-15.0 The [facility] Comment on above: Performed By: #### 3 1399, 83245, 33185 #### [facility] [place] [address] [place] [address], [facility] Hematocrit (Bld) [Volume fraction] 37.8 % Normal 36.0-45.0 [facility] Comment on above: Performed By: #### 3 1399, 82226, 31652 #### [facility] [place] [address] [place] [address], [facility] Hemoglobin (Bld) [Mass/Vol] 13.0 g/dL Normal 12.0-15.0 [facility] Comment on above: Performed By: #### 3 1399, 90055, 28222 #### [facility] [place] [address] IMMATURE GRANS 0.5 % Normal 0.0-1.0 The [facility] Comment on above: Performed By: #### 3 1400, 49599, 52891 #### [facility] [place] [address] Lymphocytes (Bld) [#/Vol] 1.0 10*3/uL Low 1.2-4.0 [facility] Comment on above: Performed By: #### 3 1399, , 40311 #### [facility] [place] [address] Lymphocytes/100 WBC (Bld) 16.8 % Low 20.0-45.0 [facility] Comment on above: Performed By: #### 3 1399, , 37274 #### [facility] [place] [address] MCH (RBC) [Entitic mass] 34.2 pg High 27.0-33.0 The [facility] Comment on above: Performed By: #### 3 1399, , 69189 #### [facility] [place] [address] MCHC (RBC) [Mass/Vol] 34.4 g/dL Normal 32.0-35.0 The [facility] Comment on above: Performed By: #### 3 1399, , 63601 #### [facility] [place] [address] MCV (RBC) [Entitic vol] 99.5 fL High 82.0-98.0 [facility] Comment on above: Performed By: #### 3 1399, 73887, 83830 #### [facility] [place] [address] [place] [address], [facility] Monocytes (Bld) [#/Vol] 0.3 10*3/uL Normal 0.1-1.0 The [facility] Comment on above: Performed By: #### 3 1400, 33553, 92514 #### [facility] [place] [address] [place] [address], [facility] MONOS 4.7 % Low 5.0-12.0 The [facility] Comment on above: Performed By: #### 3 1400, 62627, 31407 #### [facility] [place] [address] [place] [address], [place] Neutrophils/100 WBC (Bld) 77.0 % High 40.0-72.0 The [facility] Comment on above: Performed By: #### 3 1400, , 03276 #### [facility] [place] [address] [place] [id number], [facility] Nucleated RBC/100 WBC (Bld) [Ratio] 0 % Normal 0-0 The [facility] Comment on above: Performed By: #### 3 1400, , 60837 #### [facility] [place] [address] [facility] [address], [place] PLAT CNT 177 10*3/uL Normal 150-400 [facility] Comment on above: Performed By: #### 3 1400, 14134, 63964 #### [facility] [place] [address] [place] [address], [place] RBC (Bld) [#/Vol] 3.80 10*6/uL Normal 3.80-5.00 [facility] Comment on above: Performed By: #### 3 1400, 05789, 13802 #### [facility] [place] [address] [place] [address], [place] WBC (Bld) [#/Vol] 5.90 10*3/uL Normal 4.00-10.60 The [facility] Comment on above: Performed By: #### 3 1400, 80713, 56322 #### [facility] [place] [address] [place] [address], [place] COMP METABOLIC PANELon 01-07 Albumin [Mass/Vol] 3.8 g/dL Normal 3.5-5.7 The [facility] Comment on above: Performed By: #### 0 0121, 03329, 09160 #### [facility] [place] [address] [place] [address], [facility] ALKALINE PHOSPH 108 IU/L High 34-104 [facility] Comment on above: Performed By: #### 0 0121, 83651, 61657 #### [facility] [place] [address] [place] [address], [facility] ALT [Catalytic activity/Vol] 32 U/L Normal 7-52 [facility] Comment on above: Performed By: #### 0 0121, 18735, 87715 #### [facility] [place] [address] [place] [address], [facility] AST [Catalytic activity/Vol] 122 U/L High 13-39 [facility] Comment on above: Performed By: #### 0 0121, , 99167 #### [facility] [place] [address] [place] [address], [place] Bilirubin [Mass/Vol] 0.6 mg/dL Normal 0.3-1.0 [facility] Comment on above: Performed By: #### 0 0121, 37109, 90454 #### [facility] [place] [address] [place] [address], [facility] Calcium [Mass/Vol] 8.2 mg/dL Low 8.6-10.3 [facility] Comment on above: Performed By: #### 0 0121, 61839, 29535 #### [facility] [place] [address] [place] [address], [place] Chloride [Moles/Vol] 94 mmol/L Low 98-107 [facility] Comment on above: Performed By: #### 0 0121, 81522, 62797 #### [facility] [place] [address] [place] [address], [place] CO2 [Moles/Vol] 22 mmol/L Normal 21-31 [facility] Comment on above: Performed By: #### 0 0121, , 43783 #### [facility] [place] [address] [place] [address], [place] Creatinine [Mass/Vol] 0.59 mg/dL Low 0.60-1.20 [facility] Comment on above: Performed By: #### 0 0121, , 76759 #### [facility] [place] [address] [place] [address], [place] GFR/1.73 sq M.predicted among blacks MDRD (S/P/Bld) [Vol rate/Area] mL/min/{1.73_m2} Normal >60 [facility] Comment on above: Performed By: #### 0 0121, , 05252 #### [facility] [place] [address] [place] [address], [place] GFR/1.73 sq M.predicted among non-blacks MDRD (S/P/Bld) [Vol rate/Area] mL/min/{1.73_m2} Normal >60 [facility] Comment on above: Performed By: #### 0 0121, , 43725 #### [facility] [place] [address] [place] [address], [place] Glucose [Mass/Vol] 129 mg/dL High 70-100 [facility] Comment on above: Performed By: #### 0 0121, , 06093 #### [facility] [place] [address] [place] [address], [place] Potassium [Moles/Vol] 4.4 mmol/L Normal 3.5-5.1 [facility] Comment on above: Performed By: #### 0 0121, , 91083 #### [facility] [place] [address] [place] [address], [place] Protein [Mass/Vol] 6.6 g/dL Normal 6.0-8.3 [facility] Comment on above: Performed By: #### 0 0121, 37931, 96136 #### [address] Sodium [Moles/Vol] 129 mmol/L Low 136-145 [facility] Comment on above: Performed By: #### 0 0121, 00344, 43444 #### [address] Urea nitrogen [Mass/Vol] 4 mg/dL Low 7-25 [facility] Comment on above: Performed By: #### 0 0121, 30224, 00884 #### [address] LOWER EXTREMITY WO CONTRA ST RIGHTon 01-07-2022 CT LOWER EXTREMITY WO CONTRAST RIGHT [facility] Department of Radiology [address] [place] [phone] Patient Name: BERNADINE BHAKTA : 1965 Sex: F Age: Race: White Pt. Location: [facility] Patient Status: I Ordered Date: 01/07/2022 [...] report. Electronically signed: Mehul Maxwell. Transcribed by: [email or web address], User Resident: ELÍAS GUPTA Electronically Signed by: MEHUL MAXWELL @ 01/07/2022 05:00 AM I personally read this/these film(s) with this resident Normal [facility] Comment on above: Order Comment: No: D o not add to previous draw FEMUR RIGHT 2 [facility] 01-08-20 22 FEMUR RIGHT 2 [facility] Department of Radiology [address] [place] [phone] Patient Name: BERNADINE BHAKTA : 1965 Sex: F Age: Race: White Pt. Location: [facility] Patient Status: E Ordered Date: 01/07/2022 1:45:00 AM Completed Date: 01/07/2022 02:03 AM Requesting Provider: MALI GREEN Attending Provider: MALI GREEN Report Copy To: Signs & Symptoms: Pain History: Comments: FX Exam: FEMUR RIGHT 2 VWS FEMUR RIGHT 2 VWS HISTORY: Right thigh pain status post fall [...] report. Electronically signed: Mehul Maxwell. Transcribed by: [email or web address], User Resident: ELÍAS GUPTA Electronically Signed by: MEHUL MAXWELL @ 01/07/2022 02:24 AM I personally read this/these film(s) with this resident Normal [facility] Comment on above: Order Comment: No: D o not add to previous draw HEPATITIS B CORE ANTIBODYon 01-07-2022 HEP B CORE AB Non-Reactive Normal NONREACTIVE [facility] Comment on above: Order Comment: Yes: Add to Previous draw if able Performed By: #### 3 1400, 19230, 75866 #### [address] HEPATITIS B SURFACE ANTIGEN QUALon 01-07-2022 HEP B SURF AG QUAL Non-Reactive Normal NONREACTIVE [facility] Comment on above: Order Comment: Yes: Add to Previous draw if able Performed By: #### 3 1400, 42540, 73407 #### [address] HEPATITIS C ANTIBODYon 01-07 ANTI-HCV Non-Reactive Normal NONREACTIVE [facility] Comment on above: Order Comment: No: D o not add to previous draw Performed By: #### 3 1400, 12926, 99731 #### [address] KNEE RIGHT 3 VWSon 2 KNEE RIGHT 3 S [facility] Department of Radiology [address] [place] [phone] Patient Name: BERNADINE BHAKTA : 1965 Sex: F Age: Race: White Pt. Location: [facility] Patient Status: E Ordered Date: 01/07/2022 12:40:00 AM Completed Date: 01/07/2022 01:00 AM Requesting Provider: MALI GREEN Attending Provider: MALI GREEN Report Copy To: Signs & Symptoms: Pain History: Comments: FX Exam: KNEE RIGHT 3 VWS KNEE RIGHT 3 VWS HISTORY: Right knee pain status post fall [...] report. Electronically signed: Mehul Maxwell. Transcribed by: [email or web address], User Resident: ELÍAS GUPTA Electronically Signed by: MEHUL MAXWELL @ 01/07/2022 02:17 AM I personally read this/these film(s) with this resident Normal [facility] Comment on above: Order Comment: No: D o not add to previous draw OSMOLALITY BLOODon 2 Osmolality [Osmolality] 337 mosm/kg Critically high 285-305 [facility] Comment on above: Performed By: #### 0 0121, 60148, 58578 #### [facility] [place] [address] [place] [address], [place] OSMOLALITY URINEon 2 OSMOLALITY 499 mOsm/kg Normal 50-1400 [facility] Comment on above: Order Comment: Yes: Add to Previous draw if able Performed By: #### 3 1400, 27540, 77634 #### [facility] [place] [address] [place] [address], [place] POC GLUCOSE LABon 01-07-2022 Glucose [Mass/Vol] 136 mg/dL High 70-100 [facility] Comment on above: Performed By: #### 3 1400, [id number], [id number] #### [facility] [place] [address] [place] [address], [facility] Glucose [Mass/Vol] 151 mg/dL High 70-100 [facility] Comment on above: Performed By: #### 0 0071 #### [facility] [place] [address] [place] [address], [place] Glucose [Mass/Vol] 127 mg/dL High 70-100 [facility] Comment on above: Performed By: #### 0 0071 #### [facility] [place] [address] [place] [address], [facility] POC SARS COV2 IDon 2 SARS-CoV-2 (COVID-19) RNA KEELEY+probe Ql (Unsp spec) Negative Normal NEGATIVE [facility] Comment on above: Result Comment: ID N [...] Accreditation. Performed By: #### 0 [id number] #### [facility] [address] [place] [address], [facility] PORTABLE TIBIA FIBULA RIGHTo n 01-07-2022 PORTABLE TIBIA FIBULA RIGHT [facility] Department of Radiology [address] [place] [id number] Patient Name: BERNADINE BHAKTA : 1965 Sex: F Age: Race: White Pt. Location: [facility] Patient Status: E Ordered Date: 01/07/2022 [...] fracture. Electronically signed: Mehul Maxwell. Transcribed by: [email or web address], User Resident: Electronically Signed by: MEHUL MAXWELL @ 01/07/2022 03:42 AM Normal [facility] Comment on above: Order Comment: No: D o not add to previous draw PROTHROMBIN TIMEon INR Coag (PPP) [Relative time] 1.22 {INR} High 0.91-1.16 [facility] Comment on above: Result Comment: ACCC P RECOMMENDED INR FOR WARFARIN THERAPY --------- ------- CONDITION INR PROPHYLAXIS OF VENOUS THROMBOSIS 2-3 (HIGH-RISK SURGERY) TREATMENT OF VENOUS THROMBOSIS 2-3 TREATMENT OF PULMONARY EMBOLISM 2-3 PREVENTION OF SYSTEMIC EMBOLISM: 2-3 ACUTE MYOCARDIAL INFARCTION TISSUE HEART VALVES VALVULAR HEART DISEASE ATRIAL FIBRILLATION RECURRENT SYSTEMIC EMBOLISM MECHANICAL HEART VALVE 2.5-3.5 FROM: ORAL ANTICOAGULANTS. MECHANISM OF ACTION, CLINICAL EFFECTIVENESS, AND OPTIMAL THERAPEUTIC RANGE. CHEST 1995;108:231S-246S. Performed By: #### 3 1400, [id number], [id number] #### [facility] [address] [place] [address], [facility] PT Coag (PPP) [Time] 15.4 s High 12.3-14.8 [facility] Comment on above: Result Comment: ALL RESULTS MUST BE INTERPRETED WITH RESPECT TO BLOOD DRAWING ARTIFACT OR DILUTION ERROR OF ANTICOAGULANT AT THE TIME OF SAMPLING. Performed By: #### 3 1400, [id number], [id number] #### [facility] [place] [address] [place] [address], [place] RBC'S 2 UNITSon 01-07-2022 CROSSMATCH INTERP 1 COMP Normal [facility] Comment on above: Performed By: #### 3 1400, 71748, 96853 #### [facility] [place] [address] [place] [address], [place] CROSSMATCH INTERP 2 COMP Normal [facility] Comment on above: Performed By: #### 3 1400, 75604, 42230 #### [facility] [place] [address] [place] [address], [place] PRODUCT CODE 1 E0336 Normal [facility] Comment on above: Performed By: #### 3 1400, 41249, 51470 #### [facility] [place] [address] [place] [address], [place] PRODUCT CODE 2 E0336 Normal [facility] Comment on above: Performed By: #### 3 1400, 67541, 86418 #### [facility] [place] [address] [place] [address], [place] PRODUCT STATUS 1 RE Normal [facility] Comment on above: Result Comment: Resu lt changed by IF on 01/11/2022 08:57. The previous value was XM. Performed By: #### 3 1400, 30854, 54208 #### [facility] [place] [address] [place] [address], [place] PRODUCT STATUS 2 RE Normal [facility] Comment on above: Result Comment: Resu lt changed by IF on 01/11/2022 08:57. The previous value was XM. Performed By: #### 3 1400, 32790, 61863 #### [facility] [place] [address] [place] [address], [place] UNIT ABO 1 A Normal [facility] Comment on above: Performed By: #### 3 1400, 28183, 89463 #### [facility] [place] [address] [place] [address], [place] UNIT ABO 2 A Normal [facility] Comment on above: Performed By: #### 3 1400, 48774, 05158 #### [facility] [place] [address] [place] [address], [place] UNIT ID 1 [id number] Normal [facility] Comment on above: Performed By: #### 3 1400, 15483, 18856 #### [facility] [place] [address] [place] [address], [place] UNIT ID 2 [id number] Normal [facility] Comment on above: Performed By: #### 3 1400, 22769, 65974 #### [facility] [place] [address] [place] [address], [place] UNIT RH 1 Positive Normal [facility] Comment on above: Performed By: #### 3 1400, 95576, 76657 #### [facility] [place] [address] [place] [address], [place] UNIT RH 2 Positive Normal [facility] Comment on above: Performed By: #### 3 1400, 53952, 68290 #### [facility] [place] [address] [place] [address], [facility] SODIUM URINE RANDOMon 2021 Sodium (U) [Moles/Vol] 21 mmol/L Normal Th e [facility] Comment on above: Order Comment: Yes: Add to Previous draw if able Result Comment: Ther e are no established reference values for random urine specimens Performed By: #### 3 1400, 73538, 61573 #### [facility] [place] [address] [place] [address], [facility] TYPE AND SCREENon 01-07-2022 ABO INTERPRETATION A Normal [facility] Comment on above: Performed By: #### 6 1296 #### [facility] [place] [address] [place] [address], [facility] RH INTERPRETATION Positive Normal [facility] Comment on above: Performed By: #### 6 2586 #### [facility] [place] [address] [place] [address], [place] VITAMIN D 25-HYDROXYon 01-07 VITAMIN D 25-OH 33.8 ng/mL Normal 30.0-80.0 [facility] Comment on above: Result Comment: >80. 0 Toxicity possible Performed By: #### 0 0121, 39138, 73878 #### [facility] [place] [address] [place] [address], [place] Vital Signs Date Time Vital Sign Value Performing Clinician Facility 06-28-2024 13:46-0500 Body height 162.56 cm Serene Hemmer MD PSY[facility]ATRY-C Work Phone: [facility] 06-28-2024 13:46-0500 Body mass index (BMI) [Ratio] 24 kg/m2 Serene Hemmer MD [facility]ATRY-C Work Phone: [facility] 06-28-2024 13:46-0500 Body weight 63.5 kg Serene Hemmer MD PSYCHIATRY-C Work Phone: [facility] 05-01-2024 13:35-0500 Diastolic blood pressure 78 mm[Hg] Serene Hemmer MD PSYCHIATRY-C Work Phone: [facility] 05-01-2024 13:35-0500 Heart rate 89 /min Serene Hemmer MD PSYCHIATRY-C Work Phone: [facility] 05-01-2024 13:35-0500 Respiratory rate 16 /min Serene Hemmer MD PSYCHIATRY-C Work Phone: [facility] 05-01-2024 13:35-0500 SaO2% (BldA) [Mass fraction] 97 % Serene Hemmer MD [facility]ATRY-C Work Phone: [facility] 05-01-2024 13:35-0500 Systolic blood pressure 118 mm[Hg] Serene Hemmer MD PSYCHIATRY-C Work Phone: [facility] 05-01-2024 12:03-0500 Body height 162.56 cm Serene Hemmer MD PSYCHIATRY-C Work Phone: [facility] 05-01-2024 12:03-0500 Body temperature 98.1 [degF] Serene Hemmer MD PSYCHIATRY-C Work Phone: [facility] 05-01-2024 12:03-0500 Body weight 62.09 kg Serene Hemmer MD PSYCHIATRY-C Work Phone: [facility] 03-22-2024 13:21-0400 Body height 162.56 cm MD PSYCHIATRY-C Serene Hemmer Work Phone: [facility] 03-22-2024 13:21-0400 Body mass index (BMI) [Ratio] 24.2 kg/m2 MD PSYCHIATRY-C Serene Hemmer Work Phone: [facility] 03-22-2024 13:210400 Body weight 63.95 kg MD PSYCHIATRY-C Serene Hemmer Work Phone: [facility] 03-22-2024 13:21-0400 Diastolic blood pressure 70 mm[Hg] MD PSYCHIATRY-C Serene Hemmer Work Phone: [facility] 03-22-2024 13:21-0400 Heart rate 93 /min MD PSYCHIATRY-C Serene Hemmer Work Phone: [facility] 03-22-2024 13:21-0400 Systolic blood pressure 131 mm[Hg] MD PSYCHIATRY-C Serene Hemmer Work Phone: [facility] 03-01-2024 14:09-0400 Diastolic blood pressure 67 mm[Hg] MD PSYCHIATRY-C Serene Hemmer Work Phone: [facility] 03-01-2024 14:09-0400 Heart rate 96 /min MD PSYCHIATRY-C Serene Hemmer Work Phone: [facility] 03-01-2024 14:09-0400 Respiratory rate 16 /min MD PSYCHIATRY-C Serene Hemmer Work Phone: [facility] 03-01-2024 14:09-0400 SaO2% (BldA) [Mass fraction] 97 % MD PSYCHIATRY-C Serene Hemmer Work Phone: [facility] 03-01-2024 14:09-0400 Systolic blood pressure 105 mm[Hg] MD PSYCHIATRY-C Serene Hemmer Work Phone: [facility] 03-01-2024 11:05-0400 Body height 162.56 cm MD PSYCHIATRY-C Serene Hemmer Work Phone: [facility] 03-01-2024 11:05-0400 Body weight 77.56 kg MD PSYCHIATRY-C Serene Hemmer Work Phone: [facility] 02-23-2024 13:17-0400 Body height 162.56 cm MD PSYCHIATRY-C Serene Hemmer Work Phone: [facility] 02-15-2024 11:06-0400 Body height 162.6 cm Serene Hemmer PA Work Phone: [facility] 02-15-2024 11:06-0400 Body mass index (BMI) [Ratio] 29.46 kg/m2 Serene Hemmer PA Work Phone: [facility] 02-15-2024 11:06-0400 Body weight 77.84 kg Serene Hemmer PA Work Phone: [facility] 02-15-2024 11:06-0400 Diastolic blood pressure 84 mm[Hg] Serene Hemmer PA Work Phone: [facility] 02-15-2024 11:06-0400 Heart rate 97 /min Serene Hemmer PA Work Phone: [facility] 02-15-2024 11:06-0400 Respiratory rate 16 /min Serene Hemmer PA Work Phone: [facility] 02-15-2024 11:06-0400 SaO2% (BldA) [Mass fraction] 95 % Serene Hemmer PA Work Phone: [facility] 02-15-2024 11:06-0400 Systolic blood pressure 132 mm[Hg] Serene Hemmer PA Work Phone: [facility] 02-08-2024 10:36-0400 Body height 162.6 cm Serene Hemmer PA Work Phone: [facility] 02-08-2024 10:36-0400 Body mass index (BMI) [Ratio] 28.91 kg/m2 Serene Hemmer PA Work Phone: [facility] 02-08-2024 10:36-0400 Body weight 76.39 kg Serene Hemmer PA Work Phone: [facility] 02-08-2024 10:36-0400 Diastolic blood pressure 82 mm[Hg] Serene Hemmer PA Work Phone: [facility] 02-08-2024 10:36-0400 Heart rate 107 /min Serene Hemmer PA Work Phone: [facility] 02-08-2024 10:36-0400 Respiratory rate 16 /min Serene Hemmer PA Work Phone: [facility] 02-08-2024 10:36-0400 SaO2% (BldA) [Mass fraction] 97 % Serene Hemmer PA Work Phone: [facility] 02-08-2024 10:36-0400 Systolic blood pressure 124 mm[Hg] Serene Hemmer PA Work Phone: [facility] Healthcare Encounters Encounter Date Encounter Type Care Provider Facility Start: 06-28-2024 End: 06-28-2024 ambulatory Serenesharon Solaresmartín MD PSYCHIATRY-C Work Phone: [facility] Work Phone: Start: 06-28-2024 End: 06-28-2024 Patient encounter procedure Serene Solaresmartín MD PSYCHIATRY-C Work Phone: [facility] [place] Work Phone: Start: 05-01-2024 Non-patient / Non-visit Serenesharon Solaresmartín MD PSYCHIATRY-C Work Phone: [facility] Work Phone: Start: 05-01-2024 End: 05-01-2024 Admission to same day surgery center Serene Ly MD PSYCHIATRY-C Work Phone: [facility] Work Phone: Start: 05-01-2024 End: 05-01-2024 ambulatory Serenesharon Solaresmartín MD PSYCHIATRY-C Work Phone: [facility] Work Phone: Start: 04-02-2024 End: 04-02-2024 Patient encounter procedure MD PSYCHIATRY-C Serene Hemmer Work Phone: [facility] [place] Work Phone: Start: 04-02-2024 End: 04-02-2024 ambulatory MD PSYCHIATRY-C Serene Hemmer Work Phone: [facility] Work Phone: Start: 03-22-2024 End: 03-22-2024 Patient encounter procedure MD PSYCHIATRY-C Serene Hemmer Work Phone: [facility] Work Phone: Start: 03-08-2024 End: 03-11-2024 Telephone encounter Ruby Ayon MD PSYCHIATRY Work Phone: [facility] Start: 03-01-2024 End: 03-01-2024 Admission to same day surgery center MD PSYCHIATRY-C Serene Hemmer Work Phone: [facility] [place] Work Phone: Start: 03-01-2024 End: 03-01-2024 ambulatory MD PSYCHIATRY-C Serene Hemmer Work Phone: [facility] Work Phone: Start: 02-28-2024 End: 02-28-2024 Patient encounter procedure MD PSYCHIATRY-C Serene Hemmer Work Phone: [facility] Work Phone: Start: 02-28-2024 End: 02-28-2024 ambulatory MD PSYCHIATRY-C Serene Hemmer Work Phone: [facility] Work Phone: Start: 02-23-2024 End: 02-23-2024 Patient encounter procedure MD PSYCHIATRY-C Serene Hemmer Work Phone: [facility] Work Phone: Start: 02-16-2024 End: 02-16-2024 Telephone encounter Lizette Dylon MA [facility] Start: 02-15-2024 End: 02-15-2024 Bamboo flowsheet Serene Garcia Hemmer PA Work Phone: [facility] Start: 02-15-2024 End: 02-15-2024 Bamboo flowsheet Serene Garcia Hemmer PA Work Phone: [facility] Start: 02-15-2024 End: 02-15-2024 Office outpatient visit 15 minutes Serene Garcia Hemmer PA Work Phone: [facility] Comment on above: Alcoholic cirrhosis of liver with ascites (CMS/HCC) (Primary Dx); Generalized edema; Abdominal distension Start: 02-15-2024 End: 02-15-2024 ambulatory SERENE ZELAYA Not Available Start: 02-08-2024 End: 02-08-2024 Bamboo flowsheet Serene Garcia Hemmer PA Work Phone: [facility] Start: 02-08-2024 End: 02-08-2024 Bamboo flowsheet Serene Garcia Hemmer PA Work Phone: [facility] Start: 02-08-2024 End: 02-08-2024 Office outpatient visit 15 minutes Serene Garcia Hemmer PA Work Phone: [facility] Comment on above: Generalized edema (P rimary Dx); Abdominal distention; Alcoholic cirrhosis of liver with ascites (CMS/HCC); Elevated liver enzymes Start: 02-08-2024 End: 02-08-2024 ambulatory SERENE ZELAYA Not Available Start: 01-31-2024 End: 01-31-2024 ambulatory SERENE ZELAYA Not Available Start: 12-08-2023 End: 12-08-2023 ambulatory RUBY AYON Not Available Start: 11-17-2023 End: 11-17-2023 ambulatory RUBY AYON Not Available Start: 08-02-2022 End: 08-03-[address] BRYSON RODRIGUEZ Facility: Start: 01-07-2022 End: 01-09-2022 Evaluation and management of inpatient BECK DUMONTJUNIOR Facility:[facility] Procedures Date Procedure Procedure Detail Performing Clinician Start: 05-01-2024 Esophagogastroduodenoscopy Serene Zelaya MD PSYCHIATRY-C Work Phone: Start: 04-02-2024 Ultrasonography of liver MD PSYCHIATRY-C Serene Rivera er Work Phone: Start: 03-01-2024 Ultrasonography guided puncture and aspiration of abdomen MD PSYCHIATRY-C Serene Zelaya Work Phone: Start: 02-28-2024 Esophagogastroduodenoscopy MD PSYCHIATRY-C Serene Juarez mmer Work Phone: Start: 02-28-2024 Ultrasound elastography of liver MD PSYCHIATRY-C Kraig Zelaya Work Phone: Start: 12-28-2023 Mammography Serene Zelaya PA Work Phone: Start: 01-07-2022 Antibody screen BECK TIMHEIM Comment on above: Performed By: #### [id number] #### [address] Start: 05-22-2020 Colonoscopy Serene ZAVALA Work Phone: Start: 05-19-2020 Colonoscopy Ruby Ayon [place] Work Phone: Start: 05-04-2017 Laboratory test result abnormal Abnormal laboratory test result Serene ZAVALA Work Phone: Plan of Treatment Date Care Activity Detail Author Start: 05-22-2030 Screening for malign ant neoplasm of colon [facility] Start: 05-19-2030 Screening for malign ant neoplasm of colon [facility] Start: 12-27-2024 Screening for malign ant neoplasm of breast Mammogram [facility] Start: 06-28-2024 [id number]. tumo r marker [Mass/volume] in Serum or Plasma [facility] Start: 05-01-2024 End: 05-01-2024 [facility] Start: 03-01-2024 [facility] Start: 02-28-2024 [facility] Start: 02-28-2024 Actin smooth muscle IgG Ab [Units/volume] in Serum [facility] Start: 02-28-2024 Cefuroxime free [Mass/volume] in Serum or Plasma [facility] Start: 02-28-2024 Ceruloplasmin [Mass/volume] in Serum or Plasma [facility] Start: 02-28-2024 Hepatitis B core antibody measurement [facility] Start: 02-28-2024 Hepatitis B virus surface Ab [Presence] in Serum [facility] Start: 02-28-2024 [facility] Start: 02-19-2024 Influenza vaccination Influenza Vacc ine (#1) [facility] Start: 02-15-2024 End: 02-07-2025 Comprehensive metabolic 2000 panel - Serum or Plasma Comprehensive metabolic panel Lab Routine Generalized edema Elevated liver enzymes Expected: 02/15/2024 (Approximate), Expires: 02/07/2025 [facility] Work Phone: Comment on above: Expected: 02/15/2024 (Approximate), Expires: 02/07/2025 Start: 02-15-2024 End: 02-15-2024 Patient encounter procedure 02/15/2024 11:00 AM EDT Office Visit [facility] [address] [facility] [address] [place] [address] Serene Zelaya PA [address] [facility] [address] [place] [address] Arrived [facility] Comment on above: Arrived Start: 02-08-2024 End: 02-08-2024 Patient encounter procedure 02/08/2024 10:30 AM EDT Office Visit [facility] [address] [facility] [address] [place] [address] Serene Zelaya PA [address] [facility] [address] [place] [address] Arrived [facility] Comment on above: Arrived Start: 11-29-1993 Screening for malign ant neoplasm of cervix [facility] Start: 11-29-1984 Screening for malign ant neoplasm of cervix Pap Smear [facility] Start: 1965 Screening for malign ant neoplasm of colon [facility] Alpha 1 antitrypsin [Mass/volume] in Serum or Plasma [facility] Alpha 1 antitrypsin phenotyping [Identifier] in Serum or Plasma by Immunofixation [facility] Hepatitis B virus surface Ag [Presence] in Serum or Plasma by Immunoassay [facility] Hepatitis C virus Ig G Ab [Presence] in Serum or Plasma by Immunoassay [facility] Patient Education [facility] Work Phone: Immunizations Immunization Date Immunization Notes Care Provider Fa gloria 08-03-2023 influenza, seasonal, injectable, preservative free Serene Hemmer PA Work Phone: [facility] 08-03-2023 influenza virus vacc ine, unspecified formulation Serene Hemmer PA Work Phone: [facility] 08-06-2022 zoster vaccine recombinant Serene Hemmer PA Work Phone: [facility] 05-05-2022 Influenza, injectabl e, Madin [place] Canine Kidney, preservative free, quadrivalent Serene Hemmer PA Work Phone: [facility] 05-05-2022 zoster vaccine recombinant Serene Hemmer PA Work Phone: [facility] 06-10-2021 influenza, seasonal, injectable Serene Hemmer PA Work Phone: [facility] 04-03-2020 influenza, injectabl e, quadrivalent, preservative free Serene Hemmer PA Work Phone: [facility] 04-19-2019 influenza, injectabl e, madin balbir canine kidney, preservative free Serene Hemmer PA Work Phone: [facility] 05-05-2018 influenza, injectabl e, quadrivalent, preservative free Serene Hemmer PA Work Phone: [facility] 04-14-2017 seasonal influenza, intradermal, preservative free Serene Hemmer PA Work Phone: [facility] 01-19-2016 zoster vaccine, live Serene garciaser PA Work Phone: [facility] 04-20-2015 influenza, seasonal, injectable, preservative free Serene Hemmer PA Work Phone: [facility] 07-06-2013 influenza, seasonal, injectable Serene Hemmer PA Work Phone: [facility] Payers Date Payer Category Payer Self-pay 2022 Private Health Insurance [facility] [id number] 2022-Present [address] [address] [place] [address] [id number] 2022 Private Health Insurance [id number] 1965 Unknown [id number]. 2.647 1965 Unknown [id number] [id number]. 2.593 1965 Unknown [id number] [id number]. 2.1259 1965 Unknown [id number] [id number]. 2.9 1965 Unknown [id number] 2.16.840.1.143838.3.579. 2.1259 1965 Unknown [id number] 2.16.840.1.498989.3.579. 2.1259 1965 Unknown [id number] 2.16.840.1.448935.3.579. 2.1259 1959 Unknown [id number] Unknown [id number] Unknown [id number] [id number]. 2.531 Unknown [id number] 2.16.840.1.936403.3.579. 2.531 Unknown [id number] 2.16.840.1.148256.3.579. 2.531 Unknown [id number] [id number]. 2.531 Unknown [id number] [id number]. 2.531 Social History Date Type Detail Facility Start: 02-23-2024 End: 05-01-2024 Tobacco smoking status NHIS Ex-smoker (finding) [facility] Start: 1965 Sex Assigned At Female F [facility] Start: 05-01-2024 End: 06-29-2024 Sex Patient sex unknown (finding) [facility] End: 06-20-2017 History of tobacco use Current smoker [facility] End: 06-20-2017 History of tobacco use Cigarette Smoker [facility] Start: 01-31-2024 Tobacco use and exposure Smokeless tobacco non-user [facility] Start: 01-31-2024 End: 03-02-2024 Alcoholic beverage intake Ex-drinker (finding) [facility] Start: 01-31-2024 End: 02-15-2024 Alcoholic beverage intake [facility] Start: 01-31-2024 End: 02-15-2024 Tobacco use panel [facility] Start: 1965 Sex assigned at Not on file [facility] Medical Equipment Procedure Code Equipment Code Equipment Origin al Text Equipment Identifier Dates Blood Sugar Diagnostic (Onetouch Ultra Test) strip Start: 02-23-2024 Blood Sugar Diagnostic (Onetouch Ultra Test) strip Start: 02-23-2024 Blood Sugar Diagnostic (Onetouch Ultra Test) strip Start: 02-23-2024 Blood Sugar Diagnostic (Onetouch Ultra Test) strip Start: 02-23-2024 1 strip by In Vi tro route Daily [id number] Start: 11-21-2023 Blood Sugar Diagnostic (Onetouch Ultra Test) strip Start: 02-23-2024 Goals Date Patient Goal Desired Activity /State Clinical Notes 02-04-2022 to 06-28-2024 Note Date & Type Note Facility 06-28-2024 Evaluation note Diagnosis Onset Date Resolution Alcoholic cirrhosis acute Janua ry 2024 1:42pm Ascites acute June 28 025 1:42pm Elevated liver enzymes acute Ja nuary 2024 1:42pm History of alcohol abuse acute June 28 1:42pm [facility] Work Phone: 1(594) 114-926411-12-2024 [place] [address] EGD Procedure Note Signed Patient: GinaBernadine Varghese MR#: [id number] : 1965 Acct:[id number] Age/Sex: 58 / F Adm Date: 4 Loc: Room: Type: [facility] Attending Dr: Wes Hadley MD Copies to: MD Serene Sheriff PA-C~ Esophagogastroduodenoscopy Date/Provider Date: 05/01/2024 Wes Hadley MD Narrative Narrative: Procedure: EGD Indication: 58-year-old female with a history of EtOH cirrhosis, Pavan C, MELD 18 presents for EGDfor variceal screening. Abstinent from alcohol since January2024. Pre-operative diagnosis: Cirrhosis Post-operative diagnosis: Small esophageal varices, portal hypertensive gastropathy Sedation: propofol per anesthesia dept O2 oximetry, hemodynamic monitoring was performed pre, during, and post procedure. Patient was identified, H&P completed, patient was given full explanation of the procedure as well as associatedrisks and written consent wasobtained prior to procedure. Patient expressed complete understanding of the procedure as well as alternatives to the procedure and to anesthesia and agreed to proceed with the procedure as indicated. Patient was immediately reassessed prior to IV sedation. Following IV sedation, patient was placed in the left lateral decubitus position. Bite block was inserted. Endoscope was passed through the mouth, into the esophagus. Endoscope was advanced into the stomach through the pyloricchannel and into the 2nd portion of duodenum by direct visualization. Endoscopewas withdrawn into the stomach and retroflexion was performed. The endoscope was straightened,the stomach was decompressed. Endoscope was withdrawn into the esophagus then completely removed with the findings as below. Findings: DUODENUM: bulb and descending portion appeared normal. STOMACH: Snakeskin appearance throughout the stomach with antral sparing consistent with moderate PHG. No evidence of gastric varices including in retroflexed views. ESOPHAGUS: Diaphragmatic hiatus was 36 cm from incisors. GE junction (upper margin of gastric folds) was at 36 cm from incisors. Squamocolumnar junction was at 36 cm from incisors. 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 Biopsy taken: no Complications: None EBL: minimal Recommendations: -Start carvedilol 3.125 mg twice daily -Check MELD labs today -She can follow-up in our nurse practitioners liver clinic in 3 months, at whichtime if her MELD still remains greater than 12 we will give her a referral to [facility] for transplant evaluation. -She should have a repeat EGD for variceal surveillance in 1 year, sooner if anydecompensating events -Continue low-sodium diet, 2 g daily restriction -Continue Aldactone 100 mg, furosemide 40 mg daily -Complete abstinence of alcohol -Follow up with PCP Following a period of recovery, patient was seen and given full explanation of the procedure. Patient tolerated the procedure well and will be discharged in satisfactory, stable condition. Wes Hadley MD Documented By: Wes Hadley MD 05/01/24 1303 Signed By: 05/01/24 1306 [facility]11-12-2024 [place] [address] Gastroenterology H&P Signed Patient: Bernadine Bhakta MR#: [id number] : 1965 Acct:[id number] Age/Sex: 58 / F Adm Date: 4 Loc: Room: Type[facility] Attending Dr: Wes Hadley MD Copies to: MD Serene Sheriff PA-C~ Date of Service: 05/01/2024 HISTORY & PHYSICAL: Patient's history with special attention to the cardiovascular, pulmonary systems and the current problem was reviewed with the patient immediately prior to the procedure. Present medications and doses reviewed in the EMR. Allergies and pertinent laboratory tests were also re viewedat this time in the EMR. The physical examination, as below, was then performed. Indication, assessment and HPI: 58-year-old female with a history of EtOH cirrhosis, Pavan C, MELD18 presents for EGD for variceal screening. Abstinentfrom alcohol since January 2024. Family history of GI malignancy? no PHYSICAL EXAMINATION Mouth and Pharynx : moist mucus membranes, normal dentition Cardiac: regular rate, regular rhythm Pulmonary: normal respiratory effort, able to speak in complete sentences Neurological: alert and oriented x3, no focal deficits noted Abdomen: Abdomen soft, non-tender REVIEW OF SYSTEMS Constitutional: Denies malaise, fevers Cardiovascular: Denies chest pain, palpitations Respiratory: Denies shortness of breath, wheezing Gastrointestinal: Per HPI Genitourinary: Denies dysuria, polyuria Musculoskeletal: Denies joint swelling, joint stiffness Neurological: Denies numbness, tingling Integumentary: Denies rashes, skin lesions Endocrine: Denies fatigue, weight loss Written informed consent obtained from the patient. Risks (including but not limited to perforation, infection, bloating, bleeding, need for emergent surgeryand loss of life), benefits and alternatives explained and questions answered. The patient verbalized understanding. Based on history patient is an appropriate candidate for the procedure. Wes Hadley MD Documented By: Wes Hadley MD 05/01/24 1300 Signed By: 05/01/24 1303 [facility]09-22-2024 Telephone encounter Note* Telephone Encounter - Ruby Aoyn NP - 03/11/2024 9:53 AM EDT Called the patient and discussed the use of gabapentin with the pt and her . No changes willbe made at this time. [facility] [id number] Miscellaneous Notes* Telephone Encounter - Ruby Ayon NP - 03/11/2024 9:53 AM EDT Called the patient and discussed the use of gabapentin with the pt and her . No changes willbe made at this time. * Telephone Encounter - Irma Georges - 03/08/2024 10:33 AM EDT Patient called and would like to know if his should still be taking the Gabapentin dueto liver issues? Was asking if Ruby Garcia was back in the office. Would like a call back [phone]. documented in this encounterSelect Specialty [id number] Telephone encounter Note* Telephone Encounter - Irma Georges - 03/08/2024 10:33 AM EDT Patient called and would like to know if his should still be taking the Gabapentin dueto liver issues? Was asking if Ruby Garcia was back in the office. Would like a call back [phone]. [facility] [id number] Evaluation note* Diagnosis Onset Date Resolution Status Admit Date Alcoholic cirrhosis acute Septe mber 2023 1:08pm Ascites acute February 23, 2024 1:08pm Elevated liver enzymes acute Se ptember 2023 1:08pm History of alcohol abuse acute February 23, 2024 1:08pm Ascites acute February 10:51am Alcoholic cirrhosis acute Octob er 2023 1:06pm [facility] Work Phone: 1(962) 863-866108-29-2024 Telephone encounter Note* Telephone Encounter - LUCAS Reza - 02/16/2024 6:54 PM EDT Called and left a message with interventional radiology that it will be a therapeutic paracentesis and told them to call back with any further questions. [facility] [id number] Miscellaneous Notes* Telephone Encounter - LUCAS Reza - 02/16/2024 6:54 PM EDT Called and left a message with interventional radiology that it will be a therapeutic paracentesis and told them to call back with any further questions. * Telephone Encounter - Lizette Osborne MA - 02/16/2024 2:38 PM EDT [facility] Radiology called wanting to know if the paracentesis was diagnostic or therapeutic, stated if diagnostic they'll need to know what its being ran for. Radiology informed Serene would be askedand they'd get a CB tomorrow morning documented in this encounterSelect Specialty [id number] Telephone encounter Note* Telephone Encounter - Lizette Osborne MA - 02/16/2024 2:38 PM EDT [facility] Radiology called wanting to know if the paracentesis was diagnostic or therapeutic, stated if diagnostic they'll need to know what its being ran for. Radiology informed Serene would be askedand they'd get a CB tomorrow morning [facility] [id number] History of Present illness Narrative* LUCAS Reza - 02/15/2024 11:00 AM EDT Images from the original note were not included. Subjective Patient ID: Bernadine Bhakta is a 58 y.o. female who presents for edema. Bernadine is present today for follow up edema. At her last o/v Spironolactone was stopped and she was started on Furosemide and Potassium. Feels it did not help. She is not having any increased urine output. Feels her stomach is more distended. Has appt with GI on . She is fasting for bloodworkthat has already been ordered. States her appetite is starting to come back. Having normal BM's. Current Outpatient Medications on File Prior to Visit Medication Sig Dispense Refill calcium citrate 1040 MG tablet Take 2 tablets by mouth in the morning and 2 tablets in the evening and 2 tablets before bedtime. cholecalciferol (Vitamin D-3) 50 MCG (2000 UT) capsule Take 1 capsule by mouth 1 (one) time each day at the same time. cyanocobalamin (Vitamin B-12) 100 MCG tablet Take 1 tablet by mouth in the morning. docusate sodium (Colace) 100 MG capsule Take 1 capsule by mouth Daily as needed for constipation. famotidine (Pepcid) 20 MG tablet Take 20 mg by mouth at bedtime gabapentin (Neurontin) 100 MG capsule Take 1 capsule (100 mg) by mouth every 8 (eight) hours 90 capsule 2 Glucose Blood (Blood Glucose Test Strips 333) strip 1 strip by In Vitro route Daily 100 strip 3 [] hydrocortisone (Anusol-HC) 25 MG suppository Insert 1 suppository (25 mg) into the rectumin the morning and 1 suppository (25 mg) before bedtime. Do all this for 10 days. 20 suppository 0 metFORMIN, OSM, (Fortamet) 500 MG 24 hr tablet Take 1 tablet (500 mg) by mouth in the morning and 1tablet (500 mg) in the evening. Take with meals. Do not crush, chew, or split.. 90 tablet 2 Multiple Vitamin (Multi Vitamin) tablet Take 1 tablet by mouth 1 (one) time each day at the same time. omega-3 (Fish Oil) 1000 MG capsule Take 1 capsule by mouth 1 (one) time each day at the same time. potassium chloride (Klor-Con) 20 MEQ packet Take 20 mEq by mouth Daily 30 packet 2 [DISCONTINUED] furosemide (Lasix) 20 MG tablet Take 1 tablet (20 mg) by mouth Daily 30 tablet 2 No current facility-administered medications on file prior to visit. No Known Allergies Social History Tobacco Use Smoking status: Former Current packs/day: 0.00 Types: Cigarettes Quit date: 2017 Years since quittin.6 Smokeless tobacco: Never Vaping Use Vaping status: Never Used Substance Use Topics Alcohol use: Not Currently Alcohol/week: 3.0 standard drinks of alcohol Types: 3 Standard drinks or equivalent per week Drug use: Never No family history on file. Past Medical History: Diagnosis Date Anemia Cholecystitis 09/28/2017 Cholelithiasis 09/28/2017 COVID-19 Current drinker of alcohol 05/17/2017 Duodenal ulcer Personal history of other medical treatment daily drink etoh Seizure (CMS/HCC) 2016 1 episode Past Surgical History: Procedure Laterality Date APPENDECTOMY 1979 SECTION, LOW TRANSVERSE 1989 COLONOSCOPY 05/19/2020 ESOPHAGOGASTRODUODENOSCOPY 2018 HEMORRHOID SURGERY 2014 HIP SURGERY 2012 KNEE SURGERY 2012 ORIF FEMUR FRACTURE 01/08/2022 Visit Vitals BP 132/84 Pulse 97 Resp 16 Ht 5' 4 Wt 171 lb 9.6 oz SpO2 95% BMI 29.46 kg/m Smoking Status Former BSA 1.87 m Review of Systems Constitutional: Positive for fatigue and unexpected weight change. Negative for chills and fever. Respiratory: Negative for cough, shortness of breath and wheezing. Cardiovascular: Positive for leg swelling. Negative for chest pain and palpitations. Gastrointestinal: Positive for abdominal pain. Negative for constipation, diarrhea, nausea and vomiting. Skin: Negative for rash. Psychiatric/Behavioral: The patient is nervous/anxious. Objective Physical Exam Constitutional: General: She is not in acute distress. Appearance: She is well-developed. She is ill-appearing. HENT: Head: Normocephalic and atraumatic. Eyes: General: No scleral icterus. Conjunctiva/sclera: Conjunctivae normal. Cardiovascular: Rate and Rhythm: Normal rate and regular rhythm. Heart sounds: Normal heart sounds. No murmur heard. Pulmonary: Effort: Pulmonary effort is normal. No respiratory distress. Breath sounds: Normal breath sounds. No wheezing, rhonchi or rales. Abdominal: General: There is distension. Tenderness: There is abdominal tenderness. Musculoskeletal: Right lower le+ Pitting Edema present. Left lower le+ Pitting Edema present. Skin: General: Skin is warm and dry. Neurological: General: No focal deficit present. Mental Status: She is alert and oriented to person, place, and time. Gait: Gait abnormal. Comments: Using a wheelchair Psychiatric: Mood and Affect: Mood is anxious. Affect is tearful. Behavior: Behavior normal. Assessment/Plan Diagnoses and all orders for this visit: Alcoholic cirrhosis of liver with ascites (CMS/HCC) Will try to get patient set up with interventional radiology for paracentesis. She would like to have this done at [facility]. Generalized edema - furosemide (Lasix) 20 MG tablet; Take 1 tablet (20 mg) by mouth in the morning and 1 tablet (20 mg) before bedtime. - metOLazone (Zaroxolyn) 5 MG tablet; Take 1 tablet (5 mg) by mouth Daily for 5 days Increase Furosemide to 20 mg twice a day. Add metolazone as prescribed for the next few days. Abdominal distension Keep appt with GI as scheduled. Patient's treatment plan was discussed with Dr. Gene Manriquez. No follow-ups on file. documented in this encounterSelect Specialty [id number] History of Present illness Narrative* LUCAS Reza - 02/08/2024 10:30 AM EDT Images from the original note were not included. Subjective Patient ID: Bernadine Bhakta is a 58 y.o. female who presents for edema. Bernadine is present today for follow up edema. At her last o/v she was started on Spirolactone and does not feel that it helped at all. Still has the edema and has gained 3 lbs since her last o/v. Has increased protein in her diet. Current Outpatient Medications on File Prior to Visit Medication Sig Dispense Refill calcium citrate 1040 MG tablet Take 2 tablets by mouth in the morning and 2 tablets in the evening and 2 tablets before bedtime. cholecalciferol (Vitamin D-3) 50 MCG (2000 UT) capsule Take 1 capsule by mouth 1 (one) time each day at the same time. cyanocobalamin (Vitamin B-12) 100 MCG tablet Take 1 tablet by mouth in the morning. docusate sodium (Colace) 100 MG capsule Take 1 capsule by mouth Daily as needed for constipation. famotidine (Pepcid) 20 MG tablet Take 20 mg by mouth at bedtime gabapentin (Neurontin) 100 MG capsule Take 1 capsule (100 mg) by mouth every 8 (eight) hours 90 capsule 2 Glucose Blood (Blood Glucose Test Strips 333) strip 1 strip by In Vitro route Daily 100 strip 3 hydrocortisone (Anusol-HC) 25 MG suppository Insert 1 suppository (25 mg) into the rectum in the morning and 1 suppository (25 mg) before bedtime. Do all this for 10 days. 20 suppository 0 metFORMIN, OSM, (Fortamet) 500 MG 24 hr tablet Take 1 tablet (500 mg) by mouth in the morning and 1tablet (500 mg) in the evening. Take with meals. Do not crush, chew, or split.. 90 tablet 2 Multiple Vitamin (Multi Vitamin) tablet Take 1 tablet by mouth 1 (one) time each day at the same time. omega-3 (Fish Oil) 1000 MG capsule Take 1 capsule by mouth 1 (one) time each day at the same time. [DISCONTINUED] spironolactone (Aldactone) 25 MG tablet Take 1 tablet (25 mg) by mouth Daily 30 tablet 2 No current facility-administered medications on file prior to visit. No Known Allergies Social History Tobacco Use Smoking status: Former Current packs/day: 0.00 Types: Cigarettes Quit date: 2017 Years since quittin.6 Smokeless tobacco: Never Vaping Use Vaping status: Never Used Substance Use Topics Alcohol use: Not Currently Alcohol/week: 3.0 standard drinks of alcohol Types: 3 Standard drinks or equivalent per week Drug use: Never No family history on file. Past Medical History: Diagnosis Date Anemia Cholecystitis 09/28/2017 Cholelithiasis 09/28/2017 COVID-19 Current drinker of alcohol 05/17/2017 Duodenal ulcer Personal history of other medical treatment daily drink etoh Seizure (CMS/HCC) 2016 1 episode Past Surgical History: Procedure Laterality Date APPENDECTOMY 1979 SECTION, LOW TRANSVERSE 1990 COLONOSCOPY 05/19/2020 ESOPHAGOGASTRODUODENOSCOPY 2018 HEMORRHOID SURGERY 2013 HIP SURGERY 2012 KNEE SURGERY 2012 ORIF FEMUR FRACTURE 01/08/2022 Visit Vitals BP 124/82 Pulse 107 Resp 16 Ht 5' 4 Wt 168 lb 6.4 oz SpO2 97% BMI 28.91 kg/m Smoking Status Former BSA 1.86 m Review of Systems Constitutional: Positive for fatigue and unexpected weight change. Negative for chills and fever. Respiratory: Negative for cough, shortness of breath and wheezing. Cardiovascular: Positive for leg swelling. Negative for chest pain and palpitations. Gastrointestinal: Positive for abdominal pain. Negative for constipation, diarrhea, nausea and vomiting. Skin: Negative for rash. Psychiatric/Behavioral: The patient is nervous/anxious. Objective Physical Exam Constitutional: General: She is not in acute distress. Appearance: She is well-developed. She is ill-appearing. HENT: Head: Normocephalic and atraumatic. Eyes: General: No scleral icterus. Conjunctiva/sclera: Conjunctivae normal. Cardiovascular: Rate and Rhythm: Normal rate and regular rhythm. Heart sounds: Normal heart sounds. No murmur heard. Pulmonary: Effort: Pulmonary effort is normal. No respiratory distress. Breath sounds: Normal breath sounds. No wheezing, rhonchi or rales. Abdominal: General: There is distension. Tenderness: There is abdominal tenderness. Musculoskeletal: Right lower le+ Pitting Edema present. Left lower le+ Pitting Edema present. Skin: General: Skin is warm and dry. Neurological: General: No focal deficit present. Mental Status: She is alert and oriented to person, place, and time. Gait: Gait abnormal. Comments: Using a wheelchair Psychiatric: Mood and Affect: Mood is anxious. Affect is tearful. Behavior: Behavior normal. Comments: Swinging legs back and forth Assessment/Plan Diagnoses and all orders for this visit: Generalized edema - furosemide (Lasix) 20 MG tablet; Take 1 tablet (20 mg) by mouth Daily - potassium chloride (Klor-Con) 20 MEQ packet; Take 20 mEq by mouth Daily - Comprehensive metabolic panel; Future Stop the Spironolactone as it was ineffective. Reviewed treatment plan with Dr. Manriquez. Start Furosemide, Potassium, recheck in one week. Continue to elevate legs when possible. Abdominal distention Very prominent. Advised pt that if pain increases, she will need to go to the ER for further evaluation and treatment as her appt with GI is not until early February, they voiced understanding. Alcoholic cirrhosis of liver with ascites (CMS/HCC) Still not drinking alcohol which is excellent. Elevated liver enzymes - Comprehensive metabolic panel; Future Will recheck kidney and liver function in one week at her follow up. Follow up in about 1 week (around 02/15/2024) for Recheck. documented in this encounterSelect Specialty [id number] NoteMR#: [id number] I [facility] Pt. Name: Bernadine Bhakta Admitted: 01/07/2022 Discharged: 01/09/2022 Date of : 1965 Physician: Beck Delacruz M.D. DISCHARGE SUMMARY PRIMARY DIAGNOSIS: Right intra-articular distal femur fracture. SECONDARY DIAGNOSES: 1. Hypertension. 2. Diabetes. 3. Hyperlipidemia. 4. Chronic anxiety disorder. DESCRIPTION OF HOSPITAL STAY: The patient is a 56-year-old female, who presented to [facility] for operative stabilization of a right intra-articular [...] evaluation and suture removal. Electronically Signed by: Beck Delacruz M.D. 02/05/2022 05:07 P Beck Delacruz M.D. I personally saw this patient on the day of the encounter, performed the mckeon portion(s) of the service and participated in the management and confirm the resident's documentation. Please note there may be an additional personal documentation from me. Date Dict: 02/03/2022/02:21 P/Jett Carty MD Date Trans: 02/04/2022 12:45 P/raz [id number] cc: Bryson Rodriguez M.D. [facility] [employer] [address] [facility] [address] CenterEvaluation [facility]* Diagnosis Onset Date Resolution Status Alcoholic cirrhosis acute Ascites acute Elevated liver enzymes acute History of alcohol abuse [facility] Work Phone: Evaluation note* Diagnosis Onset Date Resolution Status Alcoholic cirrhosis acute Ascites acute Elevated liver enzymes acute History of alcohol abuse acu te Ascites acute [facility] Work Phone: Evaluation note* Diagnosis Onset Date Resolution Status Alcoholic cirrhosis acute Ascites acute Elevated liver enzymes acute History of alcohol abuse acu te Ascites acute Alcoholic cirrhosis acute [facility] Work Phone: Evaluation note* Diagnosis Generalized edema- Primary Edema Abdominal distention Flatulence, eructation, and gas pain Alcoholic cirrhosis of liver with ascites (CMS/HCC) Elevated liver enzymes Other nonspecific abnormal serum enzyme levels documented [facility] encounter [facility] Diagnosis Alcoholic cirrhosis of liver with ascites (CMS/HCC)- Primary Generalized edema Edema Abdominal distension Flatulence, eructation, and gas pain documented in this encounter [facility] HealthcareHistory and physical note Author Wes Hadley [facility] Note Date/Time May 01, 2024 1:03pm [facility] [address] [place] [address] Gastroenterology H&P Signed Patient: Bernadine Bhakta MR#: [id number] : 1965 Acct:[id number] Age/Sex: 58 / F Adm Date: 4 Loc: Room: Type[facility] Attending Dr: Wes Hadley MD Copies to: MD Serene Sheriff PA-C~ Date of Service: 05/01/2024 HISTORY & PHYSICAL: Patient's history with special attention to the cardiovascular, pulmonary systems and the current problem was reviewed with the patient immediately prior to the procedure. Present medications and doses reviewed in the EMR. Allergies and pertinent laboratory tests were also reviewedat this time in the EMR. The physical examination, as below, was then performed. Indication, assessment and HPI: 58-year-old female with a history of EtOH cirrhosis, Pavan C, MELD 18 presents for EGD for variceal screening. Abstinentfrom alcohol since January 2024. Family history of GI malignancy? no PHYSICAL EXAMINATION Mouth and Pharynx : moist mucus membranes, normal dentition Cardiac: regular rate, regular rhythm Pulmonary: normal respiratory effort, able to speak in complete sentences Neurological: alert and oriented x3, no focal deficits noted Abdomen: Abdomen soft, non-tender REVIEW OF SYSTEMS Constitutional: Denies malaise, fevers Cardiovascular: Denies chest pain, palpitations Respiratory: Denies shortness of breath, wheezing Gastrointestinal: Per HPI Genitourinary: Denies dysuria, polyuria Musculoskeletal: Denies joint swelling, joint stiffness Neurological: Denies numbness, tingling Integumentary: Denies rashes, skin lesions Endocrine: Denies fatigue, weight loss Written informed consent obtained from the patient. Risks (including but not limited to perforation, infection, bloating, bleeding, need for emergent surgeryand loss of life), benefits and alternatives explained and questions answered. The patient verbalized understanding. Based on history patient is an appropriate candidate for the procedure. Wes Hadley MD Documented By: Wes Hadley MD 05/01/24 1300 Signed By: <Electronically signed by Wes Hadley MD> 05/01/24 1303 [facility] Work Phone: Summary Purpose Family History No Family History Records Found Relationship Condition Age at Onset Recorded Date/T nilam father Malignant neoplasm Unknown Advance Directives No Advanced Directives Records Found Advance Directive Response Recorded Date/ Time Advance Directives No February 1:19pm Advance Directive Response Recorded Date/ Time Advance Directives No February 12:19pm Chief Complaint and Reason for Visit Chief Complaint Refer: alcoholic cir rhosis, elevated liver enzymes alcoholic Cirrhosis Reason for Visit Alcoholic cirrhosis Ascites Elevated liver enzymes History of alcohol abuse Chief Complaint Refer: alcoholic cir rhosis, elevated liver enzymes alcoholic Cirrhosis k70.31 Reason for Visit Alcoholic cirrhosis Ascites Elevated liver enzymes History of alcohol abuse Ascites Chief Complaint Refer: alcoholic cir rhosis, elevated liver enzymes alcoholic Cirrhosis k70.31 4 week follow up cirrhosis k70.30 Reason for Visit Alcoholic cirrhosis Ascites Elevated liver enzymes History of alcohol abuse Ascites Alcoholic cirrhosis Chief Complaint Admit Date Refer: alcoholic cirrhosis, elevated [place] enzymes February 23, 2024 1:08pm alcoholic Cirrhosis February 28, 2024 1:01pm k70.31 March 01, 2024 10:51am 4 week follow up cirrhosis March 22, 2024 1:06pm k70.30 April 02, 2024 1 0:40am Cirrhosis May 01, 2024 11:23am Cirrhosis May 01, 2024 1:00pm Reason for Visit Admit Date Alcoholic cirrhosis February 23, 2024 1:08pm Ascites February 23, 2024 1:08pm Elevated liver enzymes February 22 1:08pm History of alcohol abuse February 23, 2024 1:08pm Ascites March 01, 2024 10:51am Alcoholic cirrhosis March 22, 2024 1: 06pm Chief Complaint Admit Date k70.30 April 02, 2024 1 0:40am Cirrhosis May 01, 2024 11:23am Cirrhosis May 01, 2024 1:00pm 3 month follow up / Cirrhosis June 1:42pm K70.30 R74.8 June 28, 2024 2: 08pm Reason for Visit Admit Date Alcoholic cirrhosis June 28, 2024 1: 42pm Ascites June 28, 2024 1: 42pm Elevated liver enzymes June 28, 2024 1:42pm History of alcohol abuse June 28 1:42pm Additional Source Comments INFORMATION SOURCE (unrecogn ized section and content) DATE CREATED AUTHOR 02/16/2022 [facility] DATE CREATED AUTHOR AUTHOR'S ORGANIZ ATION 11/03/2022 [facility] DATE CREATED AUTHOR AUTHOR'S ORGANIZ ATION 01/24/2024 [facility] DATE CREATED AUTHOR AUTHOR'S ORGANIZ ATION 02/17/2024 [facility] DATE CREATED AUTHOR AUTHOR'S ORGANIZ ATION 07/03/2024 [facility] Care Teams (unrecognized sec tion and content) Team Status: Active Member Role Status Dates Serene Zelaya NP-C Primary Care Provider Active Team Status: Inactive Member Role Status Dates Wes Hadley MD Attending Provider Active S tart: February 23, 2024 End: February 23, 2024 DAVID Tracy Referring Provider Active St art: February 23, 2024 End: February 23, 2024 DAVID Colmenares Primary Care Provider Active Start: February 23, 2024 End: February 23, 2024 Team Status: Inactive Member Role Status Dates DAVID Colmenares Primary Care Provider Active Start: February 28, 2024 End: February 28, 2024 Wes Hadley MD Attending Provider Active S tart: February 28, 2024 End: February 28, 2024 Team Status: Inactive Member Role Status Dates DAVID Colmenares Primary Care Provide r, Attending Provider Active Start: March 01, 2024 End: March 01, 2024 Team Status: Inactive Member Role Status Dates DAVID Colmenares Primary Care Provider Active Start: March 22, 2024 End: March 22, 2024 Wes Hadley MD Attending Provider Active S tart: March 22, 2024 End: March 22, 2024 Team Status: Inactive Member Role Status Dates DAVID Colmenares Primary Care Provider Active Start: April 02, 2024 End: April 02, 2024 Wes Hadley MD Attending Provider Active S tart: April 02, 2024 End: April 02, 2024 Team Status: Inactive Member Role Status Dates MECCA ColmenaresC Primary Care Provider Active Start: May 01, 2024 End: May 01, 2024 Wes Hadley MD Attending Provider Active S tart: May 01, 2024 End: May 01, 2024 Team Status: Active Member Role Status Dates DAVID Colmenares Primary Care Provider Active Start: May 01, 2024 Wes Hadley MD Attending Provider, Other Provider Active Start: May 01, 2024 Race Starter Relationship Specialty Start Date End Date Bryson Rodriguez MD [address] [facility] [address] [place] [address] PCP - General Family Medicine 10/26/22 Race Starter Relationship Specialty Start Date End Date Bryson Rodriguez MD [address] [facility] [address] [place] [address] PCP - General Family Medicine 10/26/22 Race Starter Relationship Specialty Start Date End Date Bryson Rodriguez MD [address] [facility] [address] [place] [address] PCP - General Family Medicine 10/26/22 Race Starter Relationship Specialty Start Date End Date Bryson Rodriguez MD [address] [facility] [address] [place] [address] PCP - General Family Medicine 10/26/22 Team Status: Inactive Member Role Status Dates Serene Zelaya NP-C Primary Care Provider Active Start: June 28, 2024 End: June 28, 2024 Wes Hadley MD Attending Provider Active S tart: June 28, 2024 End: June 28, 2024 Goals (unrecognized section and content) Goals may be documented in a n alternate sectionGoals may be documented in an alternate sectionGoals may be documented in an alternate section FOR RECORDS PERTAINING TO PATIENTS WHO ARE [...] BE BASED ON THE PRIMARY CLINICAL RECORDS. [employer] [facility]. provides no warranty or guarantee of the accuracy or completeness of information in this document.
--- NOTE | 2024-07-24 18:06 | XR_ITS ---
The [address] [address] Patient Name: KYLEIGH BHAKTA MRN: [id number] date: 1965 Sex: F Assigned Patient Location: ER Current Patient Location: ER Accession/Order Number: [id number] Exam Date: 07/24/2024 18:21 Report Date: 07/24/2024 18:51 At the request of: GERI NESS Procedure: XR foot RT min 3V Exam: Radiographs: XR foot RT min 3V Reason for exam: Infection Comparison: None XR/XR foot RT min 3V IMPRESSION: No radiographically evident lytic osseous changes. Degenerative changes scattered throughout the right foot. Osteopenia. Atherosclerotic calcifications. Remainder of the right foot radiographs is unremarkable. Electronically authenticated by: RUDDY MARTINEZ Date: 07/24/2024 18:51
--- NOTE | 2024-07-24 18:07 | ED.GENADUL1 ---
HPI HPI - General Adult General Chief complaint: Extremity Problem, Nontraumatic Stated complaint: LUMP Time Seen by Provider: 07/24/24 18:02 Source: patient Mode of arrival: Wheelchair History of Present Illness HPI narrative: 58 year old female presents to the ED for wounds to her right foot. Her noted a broken blister to the medial foot 2-3 days ago. He noticed one on the lateral foot today. The medial aspect of the foot has since developed erythema. Denies injury, fever, chills, drainage. States she is prediabetic. She is being treated for cirrhosis. Related Data Home Medications ?Medication ?Instructions ?Recorded ?Confirmed calcium 600 mg capsule 600 mg PO DAILY 07/24/24 07/24/24 cholecalciferol (vitamin D3) 25 1,000 unit PO DAILY 07/24/24 07/24/24 mcg (1,000 unit) tablet (Vitamin D3) cyanocobalamin (vitamin B-12) 1,000 mcg PO DAILY 07/24/24 07/24/24 1,000 mcg tablet (Vitamin B-12) folic acid 800 mcg tablet 800 mcg PO DAILY 07/24/24 07/24/24 furosemide 40 mg tablet 40 mg PO DAILY 07/24/24 07/24/24 metformin 500 mg tablet 500 mg PO BID 07/24/24 07/24/24 omega 8-ctl-cja-fish oil 1,000 mg 1 cap PO DAILY 07/24/24 07/24/24 (120 mg-180 mg) capsule (Fish Oil) spironolactone 100 mg tablet 100 mg PO DAILY 07/24/24 07/24/24 Previous Rx's ?Medication ?Instructions ?Recorded cephalexin 500 mg capsule 500 mg PO Q6H 10 days #40 caps 07/24/24 doxycycline monohydrate 100 mg 100 mg PO BID 10 days #20 caps 07/24/24 capsule Allergies Allergy/AdvReac Type Severity Reaction Status Date / Time No Known Drug Allergies Allergy Verified 07/24/24 18:01 Opioid HPI Opioid Management Most Recent Opioid Data: No Data to Display Review of Systems ROS Constitutional Denies: fever or chills Ears, nose, mouth, and throat Denies: neck pain Cardiovascular Denies: chest pain Respiratory Denies: shortness of breath Integumentary/Breast Reports: redness, sores and new lesion Neurological Denies: headache, numbness in extremities or weakness in extremities PFSH PFSH Social History Little interest or pleasure in doing things: not at all Feeling down, depressed, or hopeless: not at all Exam Constitutional Vital Signs, click to edit/add: Last Vital Signs Temp 98.2 F 07/24/24 17:55 Pulse 89 07/24/24 17:55 Resp 16 07/24/24 17:55 BP 148/72 H 07/24/24 18:10 Pulse Ox 99 07/24/24 17:55 O2 Del Method Room Air 07/24/24 17:55 Common normals: no apparent distress and oriented x3 General appearance: cooperative HENMT Common normals: moist oral mucous membranes Eye Common normals: conjunctivae normal and no scleral icterus Neck & C-Spine Common normals: supple Cardio Common normals: regular rate and regular rhythm Peripheral pulses: posterior tibial pulses present and dorsalis pedis pulses present Extremity Other: Two ulcer areas noted to right foot; distal medial and lateral. Appear to be broken blisters. There is minimal surrounding erythema to the medial wound. Erythema to the lateral wound extends to the top of the foot. No drainage. Neuro Common normals: moves all extremities Sensorium/orientation: awake and alert Course Vital Signs Vital signs: Vital Signs Temperature 98.2 F 07/24/24 17:55 Pulse Rate 89 07/24/24 17:55 Respiratory Rate 16 07/24/24 17:55 Blood Pressure 164/101 H 07/24/24 17:55 Pulse Oximetry 99 07/24/24 17:55 Oxygen Delivery Method Room Air 07/24/24 17:55 Temperature 98.2 F 07/24/24 17:55 Pulse Rate 89 07/24/24 17:55 Respiratory Rate 16 07/24/24 17:55 Blood Pressure 148/72 H 07/24/24 18:10 Pulse Oximetry 99 07/24/24 17:55 Oxygen Delivery Method Room Air 07/24/24 17:55 Medical Decision Making MDM Narrative Medical decision making narrative: WBC count was unremarkable. Imaging showed no evidence of osteomyelitis. Findings were discussed. She was started on antibiotics. Prescriptions were provided for doxycycline and Keflex. Return precautions were discussed. She has a pcp appointment 07/26/24. She was encouraged to follow up with podiatry; call tomorrow morning for an appointment. Medical Records Medical records reviewed: Yes I reviewed the patient's medical records Lab Data Lab results reviewed: Yes I reviewed the patient's lab results Labs: Lab Results 07/24/24 Range/Units 18:15 WBC 4.2 (4.0-11.0) 10^3/uL RBC 4.06 L (4.20-5.40) 10^6/uL Hgb 12.1 (12.0-16.0) g/dL Hct 35.9 L (36.0-48.0) % MCV 88.4 (81.0-99.0) fL MCH 29.8 (26.7-34.0) pg MCHC 33.7 (29.9-35.2) g/dL RDW 13.7 (11.0-15.0) % Plt Count 134 L (150-450) 10^3/uL MPV 9.5 (9.5-13.5) fL Neut % (Auto) 63.4 (43.0-75.0) % Lymph % (Auto) 22.4 (20.5-60.0) % Harrison % (Auto) 10.6 (1.7-12.0) % Eos % (Auto) 2.4 (0.9-7.0) % Baso % (Auto) 1.0 (0.2-2.0) % Neut # (Auto) 2.6 (1.4-6.5) 10^3/uL Lymph # (Auto) 0.9 L (1.2-3.8) 10^3/uL Harrison # (Auto) 0.4 (0.3-0.8) 10^3/uL Eos # (Auto) 0.1 (0.0-0.7) 10^3/uL Baso # (Auto) 0.0 (0.0-0.1) 10^3/uL Abs Immat Gran (auto) 0.01 (0.00-0.03) 10^3/uL Imm/Tot Granulo (auto) 0.2 (0.0-0.5) % ESR 49 H (<=30) mm/hr Sodium 131 L (136-145) mmol/L Potassium 3.7 (3.5-5.1) mmol/L Chloride 94 L (98-107) mmol/L Carbon Dioxide 27.1 (21.0-32.0) mmol/L Anion Gap 13.6 BUN 7.0 (7.0-18.0) mg/dL Creatinine 0.84 (0.55-1.02) mg/dL Est GFR ( Amer) >60 (>=60 mL/min/1.73m^2) Est GFR (Non-Af Amer) >60 (>=60 mL/min/1.73m^2) BUN/Creatinine Ratio 8.3 Glucose 125 H (74-106) mg/dL Calcium 9.2 (8.5-10.1) mg/dL Total Bilirubin 1.2 H (0.2-1.0) mg/dL AST 36 (15-37) U/L ALT 23 (14-59) U/L Alkaline Phosphatase 123 H (46-116) U/L Total Protein 7.7 (6.4-8.2) g/dL Albumin 3.6 (3.4-5.0) g/dL Globulin 4.1 g/dL Albumin/Globulin Ratio 0.9 Imaging Data XR: Attestation: I have reviewed the pertinent imaging results. Radiologist's impression: ITS Impressions Foot X-Ray 07/24/24 18:06 IMPRESSION: No radiographically evident lytic osseous changes. Degenerative changes scattered throughout the right foot. Osteopenia. Atherosclerotic calcifications. Remainder of the right foot radiographs is unremarkable. Electronically authenticated by: RUDDY MARTINEZ Date: 07/24/2024 18:51 Discharge Plan Discharge Chief Complaint: Extremity Problem, Nontraumatic Clinical Impression: Foot ulcer Patient Disposition: Home, Self-Care Time of Disposition Decision: 19:03 Condition: Good Mode of Transportation: Private Vehicle Prescriptions / Home Meds: New doxycycline monohydrate 100 mg capsule 100 mg PO BID 10 Days Qty: 20 0RF cephalexin 500 mg capsule 500 mg PO Q6H 10 Days Qty: 40 0RF No Action furosemide 40 mg tablet 40 mg PO DAILY metformin 500 mg tablet 500 mg PO BID spironolactone 100 mg tablet 100 mg PO DAILY folic acid 800 mcg tablet 800 mcg PO DAILY cholecalciferol (vitamin D3) [Vitamin D3] 25 mcg (1,000 unit) tablet 1,000 unit PO DAILY cyanocobalamin (vitamin B-12) [Vitamin B-12] 1,000 mcg tablet 1,000 mcg PO DAILY calcium 600 mg capsule 600 mg PO DAILY omega 8-zfo-ray-fish oil [Fish Oil] 1,000 (120-180) mg capsule 1 cap PO DAILY Print Language: Trinidadian Instructions: Foot Ulcers in a Person with Diabetes (ED) Additional Instructions: Return to the ER for worsening symptoms. Follow up with podiatry for further evaluation and treatment. Referrals: Girish Osborn DPM [Physician] - 1 week BRYSON RODRIGUEZ [Primary Care Provider] - 1 week
[2024-07-24 18:10] VITALS: BP 148/72
[2024-07-24 18:32] LABS: Eosinophils Absolute Auto 0.1 10^3/uL (0.0-0.7); Eosinophils Percent Auto 2.4 % (0.9-7.0); Hematocrit 35.9 % (36.0-48.0); Hemoglobin 12.1 g/dL (12.0-16.0); Immature Granulocytes Abs Auto 0.01 10^3/uL (0.00-0.03); Immature Granulocytes Pct Auto 0.2 % (0.0-0.5); Lymphocytes Absolute Auto 0.9 10^3/uL (1.2-3.8); Lymphocytes Percent Auto 22.4 % (20.5-60.0); Mean Corpuscular HGB Conc 33.7 g/dL (29.9-35.2); Mean Corpuscular Hemoglobin 29.8 pg (26.7-34.0); Mean Corpuscular Volume 88.4 fL (81.0-99.0); Mean Platelet Volume 9.5 fL (9.5-13.5); Monocytes Absolute Auto 0.4 10^3/uL (0.3-0.8); Monocytes Percent Auto 10.6 % (1.7-12.0); Neutrophils Absolute Auto 2.6 10^3/uL (1.4-6.5); Neutrophils Percent Auto 63.4 % (43.0-75.0); Platelet Count 134 10^3/uL (150-450); Red Blood Count 4.06 10^6/uL (4.20-5.40); Red Cell Distribution Width 13.7 % (11.0-15.0); White Blood Count 4.2 10^3/uL (4.0-11.0)
[2024-07-24 18:46] LABS: Alanine Aminotransferase 23 U/L (14-59); Albumin Globulin Ratio 0.9; Albumin Level 3.6 g/dL (3.4-5.0); Alkaline Phosphatase 123 U/L (46-116); Anion Gap 13.6; Aspartate Amino Transferase 36 U/L (15-37); BUN Creatinine Ratio 8.3; Bilirubin Total 1.2 mg/dL (0.2-1.0); Calcium 9.2 mg/dL (8.5-10.1); Carbon Dioxide 27.1 mmol/L (21.0-32.0); Chloride 94 mmol/L (98-107); Estimated GFR (African America >60 (>=60 mL/min/1.73m^2); Estimated GFR (Non-African Ame >60 (>=60 mL/min/1.73m^2); Globulin 4.1 g/dL; Glucose 125 mg/dL (74-106); Potassium 3.7 mmol/L (3.5-5.1); Sodium 131 mmol/L (136-145); Total Protein 7.7 g/dL (6.4-8.2)
[2024-07-24 18:48] LABS: Erythrocyte Sedimentation Rate 49 mm/hr (<=30)
[2024-07-24] MEDS: CEFAZOLIN SODIUM/DEXTROSE,ISO 1 GM/50 ML PREMIX IV (19:26)
[2024-07-24] MEDS: DOXYCYCLINE MONOHYDRATE 100 MG CAPSULE PO (19:28)
[2024-07-24 20:09] VITALS: BP 142/98; PULSE 80; O2SAT 99
== END 2024-07-24 20:12 | disposition home or self-care (01) ==
PROVIDERS: Nurse Practitioner Family; Emergency Provider Emergency Medicine; PCP Family Medicine
DX: L97.519 Non-pressure chronic ulcer of other part of right foot with unspecified severity (principal); R73.03 Prediabetes; K74.60 Unspecified cirrhosis of liver
CPT/HCPCS: 36415; 73630; 80053; 85025; 85652; 96365; 99285; J0690

== ENCOUNTER 2024-07-31 15:46 | Outpatient (OUT) | payer OTHER, SELFPAY | END 2024-07-31 15:47 | disposition home or self-care (01) | LOC: WC 15:46 | PROVIDERS: PCP Family Medicine; Visit Provider Physician Assistant | DX: I70.234 Atherosclerosis of native arteries of right leg with ulceration of heel and midfoot (principal); L97.411 Non-pressure chronic ulcer of right heel and midfoot limited to breakdown of skin | CPT/HCPCS: G0463 ==

== ENCOUNTER 2024-08-14 10:26 | Outpatient (OUT) | payer OTHER, SELFPAY ==
--- OUTSIDE RECORDS SUMMARY | 2024-08-14 10:34 | XMS_ITS | CCD ---
Author Organization [facility] ion [facility] Care Team Providers Care Shipping And Receiving Supervisor Name Role Phone BECK DELACRUZ Attending Unavailable SELF, REFERRED Referring Unavailable JENNIFER, BRYSON Primary Care Unavailable BECK DELACRUZ Admitting Unavailable JENNIFER, DR MASSEY Admitting Unavailable JENNIFER, DR MASSEY Primary Care Unavailable JENNIFER, DR MASSEY Consulting Unavailable JENNIFER, DR MASSEY Attending Unavailable WEST, DR JIN Martinez Consulting Unavailable Hemmer, PIE BAKERY LABORER-C Serene Primary Care Provider [phone] MD Wes Hadley Attending Provider Hemmer, PIE BAKERY LABORER-C Serene Attending Provider [phone] Nathalie PIE BAKERY LABORER-CSerene Primary Care Provider [phone] Wes Hadley MD Attending Provider Hemmartín PIE BAKERY LABORER-C, Serene Attending Provider [phone] Bryson Rodriguez MD Primary Care Provider Hemmer PIE BAKERY LABORER-CSerene Primary Care Provider Wes Hadley MD Attending Provider Wes Hadley Admitting Unavailable Wes Hadley Attending Unavailable Serene Zelaya Primary Care Unavailable Wes Hadley Attending Unavailable Wes Hadley Admitting Unavailable HemmerSerene Primary Care Unavailable HemmerBecken Admitting Unavailable HemmerSerene Primary Care Unavailable Hemmartín Serene Attending Unavailable Wes Hadley Admitting Unavailable Wes Hadley Attending Unavailable HemBeck resendizen Primary Care Unavailable Wes Hadley Admitting Unavailable Wes Hadley Attending Unavailable HemmerSerene Primary Care Unavailable BRYSON RODRIGUEZ Attending Unavailable RUBY AYON Attending Unavailable RUBY AYON Attending Unavailable SERENE ZELAYA Attending Unavailable SERENE ZELAYA Attending Unavailable SERENE ZELAYA Attending Unavailable Medications Current Medications Medication Drug Class(es) Dates Sig (Normalized) Sig (Original) calcium carbonate 1500 mg oral tablet (3 sources) Start: 03-28-2024 take 1 tablet by mouth once daily Calcium Carbonate (Calcium 600) 600 mg calcium (1,500 mg) tablet Active 600 MG PO Daily March 27, 2024 11:00pm calcium citrate 1040 mg oral tablet (10 sources) take 2 tablets by mouth in the morning, then take 2 tablets by mouth in the evening, then take 2 tablets by mouth at bedtime calcium citrate 1040 MG tablet Take 2 tablets by mouth in the morning and 2 tablets in the evening and 2 tablets before bedtime. Active carvedilol 3.125 mg oral tablet (5 sources) alpha-Adrenergic Ghada, beta-Adrenergic Ghada Start: 05-01-2024 End: 06-28-2024 take 1 tablet by mouth in the morning carvedilol (Coreg) 3.125 MG tablet Take 3.125 mg by mouth in the morning and 3.125 mg before bedtime. 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 Do all this for 10 days. 07/25/2024 08/04/2024 Active cholecalciferol 0.025 mg oral capsule (13 sources) Vitamin D Start: 03-28-2024 take 1 capsule by mouth once daily Cholecalciferol (Vitamin D3) (Vitamin D3) 25 mcg (1,000 unit) capsule Active 1000 UNIT PO Daily March 27, 2024 11:00pm take 1 capsule by mouth once sury ly cholecalciferol (Vitamin D-3) 50 MCG (1999 UT) capsule Take 1 capsule by mouth 1 (one) time each day at the same time. Active docosahexaenoic acid 120 mg / eicosapentaenoic acid 180 mg oral capsule (10 sources) take 1 capsule by mouth once daily omega-3 (Fish Oil) 1000 MG capsule Take 1 capsule by mouth 1 (one) time each day at the same time. 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 Do all this for 10 days. Take with at least 8 ounces (large glass) of water, do not lie down for 30 minutes after. 07/25/2024 08/04/2024 Active famotidine 20 mg oral tablet (13 sources) Histamine-2 Receptor Antagonist Start: 03-15-20 End: 07-26-19 take 1 tablet by mouth once daily [...] oral tablet (20 sources) Loop Diuretic Start: 07-21-2024 take 1 tablet by mouth once daily furosemide (Lasix) 40 MG tablet Take 40 mg by mouth Daily 07/21/2024 Active Start: 02-23-2024 End: 06-28-2024 take 1 tablet by mouth once daily Furosemide 40 mg tablet Active 40 MG PO Daily June 28, 2024 1:53pm Start: 02-08-2024 End: 07-26-2024 take 1 tablet by mouth in the morning furosemide (Lasix) 20 MG tablet Indications: Generalized edema Take 1 tablet (20 mg) by mouth in the morning and 1 tablet (20 mg) before bedtime. 60 tablet 2 02/15/2024 07/26/2024 Discontinued (Other) hydrocortisone acetate 25 mg rectal suppository (3 sources) Corticosteroid Start: 01-31-2024 End: 02-10-2024 hydrocortisone (Anusol-HC) 25 MG suppository Indications: Internal hemorrhoids Insert 1 suppository (25 mg) into the rectum in the morning and 1 suppository (25 mg) before bedtime. Do all this for 10 days. 20 suppository 01/31/2024 02/10/2024 Active osmotic 24 hr metFORMIN hydrochloride 500 mg extended release oral tablet (15 sources) Biguanide Start: 02-23-2024 take 1000 mg by mouth once daily Metformin Active 1000 MG PO Daily February 23, 2024 12:00am Start: 01-19-2024 take 1 tablet by nicolle th in the morning, then take 1 tablet by mouth every twenty-four hours at mealtime metFORMIN, OSM, (Fortamet) 500 MG 24 hr tablet Indications: Liver disease Take 1 tablet (500 mg) by mouth in the morning and 1 tablet (500 mg) in the evening. Take with meals. Do not crush, chew, or split.. 90 tablet 2 01/19/2024 Active Multiple Vitamin (Multi Vitamin) tablet (10 sources) take 1 tablet by mouth once [...] TAB PO Daily March 28, 2024 12:00am potassium chloride 20 meq powder for oral solution (14 sources) Start: 02-23-2024 End: 03-28-2024 take 20 mEq by mouth once daily potassium chloride (Klor-Con) 20 MEQ packet Indications: Generalized edema Take 20 mEq by mouth Daily 100 packet 03/07/2024 Active Start: 02-08-2024 take 20 mEq by mouth once daily potassium chloride (Klor-Con) 20 MEQ packet Indications: Generalized edema Take 20 mEq by mouth Daily 30 packet 2 02/08/2024 Active spironolactone 100 mg oral tablet (11 sources) Aldosterone Antagonist Start: 07-21-2024 take 1 tablet by mouth once daily spironolactone (Aldactone) 100 MG tablet Take 100 mg by mouth Daily 07/21/2024 Active Start: 02-23-2024 End: 06-28-2024 take 1 tablet [...] (Ineffective) vitamin b12 1 mg oral tablet (13 sources) Vitamin B12 Start: 03-28-2024 take 1 [...] Sig (Original) gabapentin 100 mg oral capsule (15 sources) Anti-epileptic Agent Start: 02-23-2024 End: 03-28-2024 [...] 8 (eight) hours 90 capsule 2 11/17/2023 07/26/2024 Discontinued (Other) metOLazone 5 mg oral tablet (6 sources) Thiazide-like Diuretic Start: 02-15-2024 End: 07-26-2024 take 1 tablet by mouth once daily metOLazone (Zaroxolyn) 5 MG tablet Indications: Generalized edema Take 1 tablet (5 mg) by mouth Daily for 5 days 5 tablet 02/15/2024 07/26/2024 Discontinued (Other) Problems Active Problems Problem Classification Problem Date Documented Da te Episodic/Chronic Alcohol-related disorders (20 sources) Alcoholic cirrhosis; Translations: [Alcoholic cirrhosis of liver without ascites] Onset: 02-28-2023 02-23-2024 Chronic Coronary atherosclerosis and other heart disease (10 sources) Disorder of cardiovascular system; Translations: [Atherosclerotic heart disease of [place] coronary artery without angina pectoris] Onset: 02-20-2013 03-01-2023 Chronic Disorders of lipid metabolism (20 sources) Hypertriglyceridemia ; Translations: [Pure hyperglyceridemia] Onset: 02-28-2023 02-28-2023 Chronic Epilepsy; convulsions (10 sources) Epilepsy; Translations: [Epilepsy, unspecified, not intractable, without status epilepticus] Onset: 08-01-2013 03-01-2023 Chronic Gastroduodenal ulcer (except hemorrhage) (10 sources) Ulcer of duodenum; Translations: [Duodenal ulcer, unspecified as acute or chronic, without hemorrhage or perforation] Onset: 02-28-2023 02-28-2023 Chronic Menopausal disorders (10 sources) Decreased estrogen level; Translations: [Other primary ovarian failure] Onset: 02-28-2023 02-28-2023 Chronic Osteoarthritis (20 sources) Osteoarthritis of knee; Translations: [Osteoarthritis of knee, unspecified] Onset: 02-28-2023 02-28-2023 Chronic Osteoporosis (10 sources) Osteoporosis; Translations: [Age-related osteoporosis without current pathological fracture] Onset: 02-28-2023 02-28-2023 Chronic Other acquired deformities (10 sources) Scoliosis deformity of spine; Translations: [Scoliosis, unspecified] Onset: 02-28-2023 02-28-2023 Chronic Other gastrointestinal disorders (5 sources) Ascites; Translations: [Other ascites] 02-23-2024 Episodic Other hematologic conditions (10 sources) Macrocytosis; Translations: [Other specified diseases of blood and blood-forming organs] Onset: 02-28-2023 02-28-2023 Chronic Other hematologic conditions (10 sources) Macrocytosis - no anemia; Translations: [Other specified diseases of blood and blood-forming organs] Onset: 05-17-2017 03-01-2023 Chronic Other liver diseases (10 sources) Disease of liver; Translations: [Liver disease, unspecified] Onset: 10-11-2017 03-01-2023 Chronic Other liver diseases (6 sources) Abnormal levels of other serum enzymes; Translations: [Other nonspecific abnormal serum enzyme levels] Onset: 06-28-2024 02-23-2024 Episodic Skin and subcutaneous tissue infections (4 sources) Cellulitis and abscess of lower limb; Translations: [Cellulitis of unspecified part of limb] Onset: 07-26-2024 07-26-2024 Episodic Spondylosis; intervertebral disc disorders; other back problems (20 sources) Degeneration of lumbar intervertebral disc; Translations: [Other intervertebral disc degeneration, lumbar region] Onset: 02-28-2023 02-28-2023 Chronic Superficial injury; contusion (4 sources) Blister of foot; Translations: [Blister (nonthermal), right foot, sequela] Onset: 07-26-2024 07-26-2024 Episodic Past or Other Problems Problem Classification Problem Date Documented Da te Episodic/Chronic Biliary tract disease (10 sources) Cholelithiasis AND cholecystitis without obstruction; Translations: [Calculus of gallbladder with chronic cholecystitis without obstruction] Onset: 3 02-28-2023 Episodic Deficiency and other anemia (10 sources) Anemia; Translations: [Anemia, unspecified] Onset: 3 02-28-2023 Episodic Deficiency and other anemia (10 sources) Iron deficiency anemia; Translations: [Iron deficiency anemia, unspecified] Onset: 8 03-01-2023 Episodic Diabetes mellitus without complication (10 sources) Impaired glucose tolerance; Translations: [Impaired glucose tolerance (oral)] Onset: 3 02-28-2023 Episodic Epilepsy; convulsions (10 sources) Seizure; Translations: [Unspecified convulsions] Onset: 4 03-01-2023 Episodic Fracture of lower limb (20 sources) Closed fracture distal femur, comminuted/intra-artic ular; Translations: [Other fracture of lower end of right femur, subsequent encounter for closed fracture with routine healing] Onset: 3 03-01-2023 Episodic Fracture of neck of femur (hip) (10 sources) Closed intertrochanteric fracture; Translations: [Displaced intertrochanteric fracture of unspecified femur, initial encounter for closed fracture] Onset: 3 03-01-2023 Episodic Gastrointestinal hemorrhage (10 sources) Hemorrhage of rectum and anus; Translations: [Hemorrhage of anus and rectum] Onset: 4 03-01-2023 Episodic Hemorrhoids (20 sources) Bleeding internal hemorrhoids; Translations: [Other hemorrhoids] Onset: 4 03-01-2023 Episodic Other circulatory disease (10 sources) Elevated blood-pressure reading without diagnosis of hypertension; Translations: [Elevated blood-pressure reading, without diagnosis of hypertension] Onset: 3 02-28-2023 Episodic Other fractures (10 sources) Closed fracture of acetabulum; Translations: [Unspecified fracture of unspecified acetabulum, initial encounter for closed fracture] Onset: 4 03-01-2023 Episodic Other gastrointestinal disorders (9 sources) Other ascites; Translations: [Other ascites] Onset: 4 02-23-2024 Episodic Other gastrointestinal disorders (4 sources) Swollen abdomen; Translations: [Abdominal distension (gaseous)] 02-08-2024 Episodic Other hematologic conditions (10 sources) H/O: anemia - iron deficient; Translations: [Personal history of diseases of the blood and blood-forming organs and certain disorders involving the immune mechanism] Onset: 7 03-01-2023 Episodic Other liver diseases (17 sources) Elevated liver enzymes level; Translations: [Abnormal levels of other serum enzymes] Onset: 4 02-23-2024 Episodic Other non-traumatic joint disorders (10 sources) Trochanteric bursitis; Translations: [Pain in unspecified hip] Onset: 3 03-01-2023 Episodic Other screening for suspected conditions (not mental disorders or infectious disease) (15 sources) Encounter for screening mammogram for malignant neoplasm of breast; Translations: [Electrocardiogram abnormal] Onset: 4 Episodic Residual codes; unclassified (14 sources) Edema, generalized; Translations: [Generalized edema] Onset: 4 01-31-2024 Episodic Residual codes; unclassified (10 sources) Current drinker; Translations: [Other specified health status] Onset: 7 Resolved: 4 01-31-2024 Episodic Results Test Name Value Interpretation Reference Range Facility AFP Tumor Marker, Serumon AFP Tumor Marker, Serum 6.0 ng/mL Normal 0.0-9.2 [facility] Comment on above: Result Comment: [employer] Electrochemiluminescence Immunoassay (ECLIA) Values obtained with different assay methods or kits cannot be used interchangeably. Results cannot be interpreted as absolute evidence of the presence or absence of malignant disease. This test is not interpretable in females. Performed at: - [facility] [id number] Customer Experience Retail Clerk: Gonzales Poe PhD, Phone: [phone] PERFORMED BY: [place] [address] PATHOLOGIST RANGER AIDE CARL KWAN M.D. Performed By: #### H BSAG, SMAB, CERULOP, HBSAB, ALPHA PHEN, HBCAB, HCV RX PCR, NIYA CHOICE #### [facility] , #### PT, HEPATIC, CBC, LIPID, FE and TIBC, ALLYSON #### [facility] [address] [place] [address] Alanine aminotransferase [En zymatic activity/volume] in Serum or PlasmaOrdered By: Wes Hadley on 06-28-2024 ALT [Catalytic activity/Vol] Alanine aminotransferase [Enzymatic activity/volume] in Serum or Plasma [facility] Albumin [Mass/volume] in Ser um or Plasma by Bromocresol green (BCG) dye binding methoOrdered By: Wes Hadley on 06-28-2024 Albumin BCG dye [Mass/Vol] Albumin [Mass/volume] in Serum or Plasma by Bromocresol green (BCG) dye binding metho 3.5-5.7 [facility] Alkaline phosphatase [Enzyma tic activity/volume] in Serum or PlasmaOrdered By: Wes Hadley on 06-28-2024 ALP [Catalytic activity/Vol] Alkaline phosphatase [Enzymatic activity/volume] in Serum or Plasma 34-104 [facility] Aspartate aminotransferase [ Enzymatic activity/volume] in Serum or PlasmaOrdered By: Wes Hadley on 06-28-2024 AST [Catalytic activity/Vol] Aspartate aminotransferase [Enzymatic activity/volume] in Serum or Plasma 13-39 [facility] Basophils Auto (Bld) [#/Vol] Ordered By: Wes Hadley on 06-28-2024 Basophils (Bld) [#/Vol] Automated basophil count 0.0-0.2 [facility] Basophils/100 WBC Auto (Bld) Ordered By: Wes Hadley on 06-28-2024 Basophils/100 WBC (Bld) Automated basophil % . [facility] Bilirubin.total [Mass/volume ] in Serum or PlasmaOrdered By: Wes Hadley on 06-28-2024 Bilirubin [Mass/Vol] Bilirubin.total [Mass/volume] in Serum or Plasma High 0.3-1.0 [facility] Comment on above: Samples from patient s who have taken Naproxen have shown spurious elevation in Total Bilirubin levels. A metabolite of Naproxen, O-desmethylnaproxen, has been shown to interfere with the [place] method for measuring Total Bilirubin. Calcium [Mass/volume] in Ser um or PlasmaOrdered By: Wes Hadley on 06-28-2024 Calcium [Mass/Vol] Calcium [Mass/volume ] in Serum or Plasma 8.6-10.3 [facility] Carbon dioxide, total [Moles /volume] in Serum or PlasmaOrdered By: Wes Hadley on 06-28-2024 CO2 [Moles/Vol] Carbon dioxide, tota l [Moles/volume] in Serum or Plasma 21.0-31.0 [facility] Chloride [Moles/volume] in S [place] or PlasmaOrdered By: Wes Hadley on 06-28-2024 Chloride [Moles/Vol] Chloride [Moles/vol ume] in Serum or Plasma Low 98-107 [facility] Complete Blood Count Auto Di ffon 06-28-2024 Basophils (Bld) [#/Vol] 0.0 10*3/uL Normal 0.0-0.2 [facility] Comment on above: Result Comment: PERF ORMED BY: [place] [address] PATHOLOGIST RANGER AIDE CARL KWAN M.D. Performed By: #### H BSAG, SMAB, CERULOP, HBSAB, ALPHA PHEN, HBCAB, HCV RX PCR, NIYA CHOICE #### [facility] , #### PT, HEPATIC, CBC, LIPID, FE and TIBC, ALLYSON #### [address] Basophils/100 WBC (Bld) 1.1 % Normal . [facility] Comment on above: Performed By: #### H BSAG, SMAB, CERULOP, HBSAB, ALPHA PHEN, HBCAB, HCV RX PCR, NIYA CHOICE #### [facility] , #### PT, HEPATIC, CBC, LIPID, FE and TIBC, ALLYSON #### [address] Eosinophils (Bld) [#/Vol] 0.1 10*3/uL Normal 0.0-0.45 [facility] Comment on above: Performed By: #### H BSAG, SMAB, CERULOP, HBSAB, ALPHA PHEN, HBCAB, HCV RX PCR, NIYA CHOICE #### [facility] , #### PT, HEPATIC, CBC, LIPID, FE and TIBC, ALLYSON #### [address] Eosinophils/100 WBC (Bld) 3.4 % Normal . [facility] Comment on above: Performed By: #### H BSAG, SMAB, CERULOP, HBSAB, ALPHA PHEN, HBCAB, HCV RX PCR, NIYA CHOICE #### [facility] , #### PT, HEPATIC, CBC, LIPID, FE and TIBC, ALLYSON #### [address] Erythrocyte distribution width (RBC) [Ratio] 14.9 % Normal 11.9-15.3 [facility] Comment on above: Performed By: #### H BSAG, SMAB, CERULOP, HBSAB, ALPHA PHEN, HBCAB, HCV RX PCR, NIYA CHOICE #### [facility] , #### PT, HEPATIC, CBC, LIPID, FE and TIBC, ALLYSON #### [address] Hematocrit (Bld) [Volume fraction] 34.4 % Normal 34.0-46.4 [facility] Comment on above: Performed By: #### H BSAG, SMAB, CERULOP, HBSAB, ALPHA PHEN, HBCAB, HCV RX PCR, NIYA CHOICE #### [facility] , #### PT, HEPATIC, CBC, LIPID, FE and TIBC, ALLYSON #### [address] Hemoglobin (Bld) [Mass/Vol] 11.8 g/dL Normal 11.8-15.4 [facility] Comment on above: Performed By: #### H BSAG, SMAB, CERULOP, HBSAB, ALPHA PHEN, HBCAB, HCV RX PCR, NIYA CHOICE #### [facility] , #### PT, HEPATIC, CBC, LIPID, FE and TIBC, ALLYSON #### [address] Lymphocytes (Bld) [#/Vol] 0.9 10*3/uL Low 1.00-4.8 [facility] Comment on above: Performed By: #### H BSAG, SMAB, CERULOP, HBSAB, ALPHA PHEN, HBCAB, HCV RX PCR, NIYA CHOICE #### [facility] , #### PT, HEPATIC, CBC, LIPID, FE and TIBC, ALLYSON #### [address] Lymphocytes/100 WBC (Bld) 25.5 % Normal . [facility] Comment on above: Performed By: #### H BSAG, SMAB, CERULOP, HBSAB, ALPHA PHEN, HBCAB, HCV RX PCR, NIYA CHOICE #### [facility] , #### PT, HEPATIC, CBC, LIPID, FE and TIBC, ALLYSON #### [address] MCH (RBC) [Entitic mass] 30.1 pg Normal 24.7-34.3 [facility] Comment on above: Performed By: #### H BSAG, SMAB, CERULOP, HBSAB, ALPHA PHEN, HBCAB, HCV RX PCR, NIYA CHOICE #### [facility] , #### PT, HEPATIC, CBC, LIPID, FE and TIBC, ALLYSON #### [address] MCV (RBC) [Entitic vol] 87.7 fL Normal 80-100 [facility] Comment on above: Performed By: #### H BSAG, SMAB, CERULOP, HBSAB, ALPHA PHEN, HBCAB, HCV RX PCR, NIYA CHOICE #### [facility] , #### PT, HEPATIC, CBC, LIPID, FE and TIBC, ALLYSON #### [address] Mean Corpuscular HGB Conc 34.3 g/dL Normal 32.0-35.0 [facility] Comment on above: Performed By: #### H BSAG, SMAB, CERULOP, HBSAB, ALPHA PHEN, HBCAB, HCV RX PCR, NIYA CHOICE #### [facility] , #### PT, HEPATIC, CBC, LIPID, FE and TIBC, ALLYSON #### [address] Monocytes (Bld) [#/Vol] 0.5 10*3/uL Normal 0.0-0.8 [facility] Comment on above: Performed By: #### H BSAG, SMAB, CERULOP, HBSAB, ALPHA PHEN, HBCAB, HCV RX PCR, NIYA CHOICE #### [facility] , #### PT, HEPATIC, CBC, LIPID, FE and TIBC, ALLYSON #### [address] Monocytes/100 WBC (Bld) 12.9 % Normal . [facility] Comment on above: Performed By: #### H BSAG, SMAB, CERULOP, HBSAB, ALPHA PHEN, HBCAB, HCV RX PCR, NIYA CHOICE #### [facility] , #### PT, HEPATIC, CBC, LIPID, FE and TIBC, ALLYSON #### [address] Neutrophils (Bld) [#/Vol] 2.1 10*3/uL Normal 1.8-7.7 [facility] Comment on above: Performed By: #### H BSAG, SMAB, CERULOP, HBSAB, ALPHA PHEN, HBCAB, HCV RX PCR, NIYA CHOICE #### [facility] , #### PT, HEPATIC, CBC, LIPID, FE and TIBC, ALLYSON #### [address] Neutrophils/100 WBC (Bld) 57.1 % Normal . [facility] Comment on above: Performed By: #### H BSAG, SMAB, CERULOP, HBSAB, ALPHA PHEN, HBCAB, HCV RX PCR, NIYA CHOICE #### [facility] , #### PT, HEPATIC, CBC, LIPID, FE and TIBC, ALLYSON #### [address] NRBC% 0.2 /100{WBC} Normal 0-0.5 [facility] Comment on above: Performed By: #### H BSAG, SMAB, CERULOP, HBSAB, ALPHA PHEN, HBCAB, HCV RX PCR, NIYA CHOICE #### [facility] , #### PT, HEPATIC, CBC, LIPID, FE and TIBC, ALLYSON #### [address] Platelet mean volume (Bld) [Entitic vol] 8.3 fL Normal 6.3-10.7 [facility] Comment on above: Performed By: #### H BSAG, SMAB, CERULOP, HBSAB, ALPHA PHEN, HBCAB, HCV RX PCR, NIYA CHOICE #### [facility] , #### PT, HEPATIC, CBC, LIPID, FE and TIBC, ALLYSON #### [address] Platelets (Bld) [#/Vol] 137 10*3/uL Low 150-450 [facility] Comment on above: Performed By: #### H BSAG, SMAB, CERULOP, HBSAB, ALPHA PHEN, HBCAB, HCV RX PCR, NIYA CHOICE #### [facility] , #### PT, HEPATIC, CBC, LIPID, FE and TIBC, ALLYSON #### [address] RBC (Bld) [#/Vol] 3.92 10*6/uL Normal 3.60-5.00 [facility] Comment on above: Performed By: #### H BSAG, SMAB, CERULOP, HBSAB, ALPHA PHEN, HBCAB, HCV RX PCR, NIYA CHOICE #### [facility] , #### PT, HEPATIC, CBC, LIPID, FE and TIBC, ALLYSON #### [address] WBC (Bld) [#/Vol] 3.6 10*3/uL Low 3.8-11.6 [facility] Comment on above: Performed By: #### H BSAG, SMAB, CERULOP, HBSAB, ALPHA PHEN, HBCAB, HCV RX PCR, NIYA CHOICE #### [facility] , #### PT, HEPATIC, CBC, LIPID, FE and TIBC, ALLYSON #### [address] Comprehensive Metabolic Pane eli 06-28-2024 Albumin [Mass/Vol] 3.8 g/dL Normal 3.5-5.7 [facility] Comment on above: Performed By: #### H BSAG, SMAB, CERULOP, HBSAB, ALPHA PHEN, HBCAB, HCV RX PCR, NIYA CHOICE #### [facility] , #### PT, HEPATIC, CBC, LIPID, FE and TIBC, ALLYSON #### [address] Albumin/Globulin [Mass ratio] 1.3 {ratio} Normal [facility] Comment on above: Performed By: #### H BSAG, SMAB, CERULOP, HBSAB, ALPHA PHEN, HBCAB, HCV RX PCR, NIYA CHOICE #### [facility] , #### PT, HEPATIC, CBC, LIPID, FE and TIBC, ALLYSON #### [address] ALP [Catalytic activity/Vol] 92 U/L Normal 34-104 [facility] Comment on above: Result Comment: PERF ORMED BY: [place] [address] PATHOLOGIST RANGER AIDE CARL KWAN M.D. Performed By: #### H BSAG, SMAB, CERULOP, HBSAB, ALPHA PHEN, HBCAB, HCV RX PCR, NIYA CHOICE #### [facility] , #### PT, HEPATIC, CBC, LIPID, FE and TIBC, ALLYSON #### [address] ALT [Catalytic activity/Vol] 17 U/L Normal 7-52 [facility] Comment on above: Performed By: #### H BSAG, SMAB, CERULOP, HBSAB, ALPHA PHEN, HBCAB, HCV RX PCR, NIYA CHOICE #### [facility] , #### PT, HEPATIC, CBC, LIPID, FE and TIBC, ALLYSON #### [address] Anion gap [Moles/Vol] 11.9 mmol/L Normal 6.0-15.0 [facility] Comment on above: Performed By: #### H BSAG, SMAB, CERULOP, HBSAB, ALPHA PHEN, HBCAB, HCV RX PCR, NIYA CHOICE #### [facility] , #### PT, HEPATIC, CBC, LIPID, FE and TIBC, ALLYSON #### [address] AST [Catalytic activity/Vol] 34 U/L Normal 13-39 [facility] Comment on above: Performed By: #### H BSAG, SMAB, CERULOP, HBSAB, ALPHA PHEN, HBCAB, HCV RX PCR, NIYA CHOICE #### [facility] , #### PT, HEPATIC, CBC, LIPID, FE and TIBC, ALLYSON #### [address] Bilirubin [Mass/Vol] 1.4 mg/dL High 0.3-1.0 [facility] Comment on above: Result Comment: [...] LIPID, FE and TIBC, ALLYSON #### [address] Calcium [Mass/Vol] 9.8 mg/dL Normal 8.6-10.3 [facility] Comment on above: Performed By: #### H BSAG, SMAB, CERULOP, HBSAB, ALPHA PHEN, HBCAB, HCV RX PCR, NIYA CHOICE #### [facility] , #### PT, HEPATIC, CBC, LIPID, FE and TIBC, ALLYSON #### [address] Chloride [Moles/Vol] 95 mmol/L Low 98-107 [facility] Comment on above: Performed By: #### H BSAG, SMAB, CERULOP, HBSAB, ALPHA PHEN, HBCAB, HCV RX PCR, NIYA CHOICE #### [facility] , #### PT, HEPATIC, CBC, LIPID, FE and TIBC, ALLYSON #### [address] CO2 [Moles/Vol] 26.3 mmol/L Normal 21.0-31.0 [facility] Comment on above: Performed By: #### H BSAG, SMAB, CERULOP, HBSAB, ALPHA PHEN, HBCAB, HCV RX PCR, NIYA CHOICE #### [facility] , #### PT, HEPATIC, CBC, LIPID, FE and TIBC, ALLYSON #### [address] Creatinine [Mass/Vol] 0.60 mg/dL Normal 0.60-1.20 [facility] Comment on above: Performed By: #### H BSAG, SMAB, CERULOP, HBSAB, ALPHA PHEN, HBCAB, HCV RX PCR, NIYA CHOICE #### [facility] , #### PT, HEPATIC, CBC, LIPID, FE and TIBC, ALLYSON #### [address] GFR/1.73 sq M.predicted MDRD (S/P/Bld) [Vol rate/Area] mL/min/{1.73_m2} Normal [facility] Comment on above: Performed By: #### H BSAG, SMAB, CERULOP, HBSAB, ALPHA PHEN, HBCAB, HCV RX PCR, NIYA CHOICE #### [facility] , #### PT, HEPATIC, CBC, LIPID, FE and TIBC, ALLYSON #### [address] Globulin (S) [Mass/Vol] 3.0 g/dL Normal [facility] Comment on above: Performed By: #### H BSAG, SMAB, CERULOP, HBSAB, ALPHA PHEN, HBCAB, HCV RX PCR, NIYA CHOICE #### [facility] , #### PT, HEPATIC, CBC, LIPID, FE and TIBC, ALLYSON #### [address] Glucose [Mass/Vol] 71 mg/dL Normal 70-100 [facility] Comment on above: Result Comment: [facility] Glucose Reference Range is dependent on time and content of last meal. Glucose of more than 200 mg/dL in a nonstressed, ambulatory subject supports the diagnosis of Diabetes Mellitus. ADA recommended reference range Performed By: #### H BSAG, SMAB, CERULOP, HBSAB, ALPHA PHEN, HBCAB, HCV RX PCR, NIYA CHOICE #### [facility] , #### PT, HEPATIC, CBC, LIPID, FE and TIBC, ALLYSON #### [address] Potassium [Moles/Vol] 4.2 mmol/L Normal 3.5-5.1 [facility] Comment on above: Performed By: #### H BSAG, SMAB, CERULOP, HBSAB, ALPHA PHEN, HBCAB, HCV RX PCR, NIYA CHOICE #### [facility] , #### PT, HEPATIC, CBC, LIPID, FE and TIBC, ALLYSON #### [address] Protein [Mass/Vol] 6.8 g/dL Normal 6.4-8.9 [facility] Comment on above: Performed By: #### H BSAG, SMAB, CERULOP, HBSAB, ALPHA PHEN, HBCAB, HCV RX PCR, NIYA CHOICE #### [facility] , #### PT, HEPATIC, CBC, LIPID, FE and TIBC, ALLYSON #### [facility] [address] Sodium [Moles/Vol] 129 mmol/L Low 136-145 [facility] Comment on above: Performed By: #### H BSAG, SMAB, CERULOP, HBSAB, ALPHA PHEN, HBCAB, HCV RX PCR, NIYA CHOICE #### [facility] , #### PT, HEPATIC, CBC, LIPID, FE and TIBC, ALLYSON #### [facility] [address] Urea nitrogen [Mass/Vol] 5 mg/dL Low 7-25 [facility] Comment on above: Performed By: #### H BSAG, SMAB, CERULOP, HBSAB, ALPHA PHEN, HBCAB, HCV RX PCR, NIYA CHOICE #### [facility] , #### PT, HEPATIC, CBC, LIPID, FE and TIBC, ALLYSON #### [facility] [address] Creatinine [Mass/volume] in Serum or PlasmaOrdered By: Wes Hdaley on 06-28-2024 Creatinine [Mass/Vol] Creatinine [Mass/v olume] in Serum or Plasma 0.60-1.20 [facility] Eosinophils Auto (Bld) [#/Vo l]Ordered By: Wes Hadley on 06-28-2024 Eosinophils (Bld) [#/Vol] Automated eosinophil count 0.0-0.45 [facility] Eosinophils/100 WBC Auto (Bl d)Ordered By: Wes Hadley on 06-28-2024 Eosinophils/100 WBC (Bld) Automated eosinophil % . [facility] Erythrocyte distribution wid th Auto (RBC) [Ratio]Ordered By: Wes Hadley on 06-28-2024 Erythrocyte distribution width (RBC) [Ratio] Erythrocyte distribution width [Ratio] by Automated count 11.9-15.3 [facility] Globulin Calc (S) [Mass/Vol] Ordered By: Wes Hadley on 06-28-2024 Globulin (S) [Mass/Vol] Serum globulin measurement by calculation (mass/volume) [facility] Glucose [Mass/volume] in Ser um or PlasmaOrdered By: Wes Hadley on 06-28-2024 Glucose [Mass/Vol] Glucose [Mass/volume ] in Serum or Plasma 70-100 [facility] Comment on above: ADA recommended refe rence rangeRandom Glucose Reference Range is dependent on time and content of last meal. Glucose of more than 200 mg/dL in a nonstressed, ambulatory subject supports the diagnosis of Diabetes Mellitus. Hematocrit Auto (Bld) [Volum e fraction]Ordered By: Wes Hadley on 06-28-2024 Hematocrit (Bld) [Volume fraction] Hematocrit [Volume Fraction] of Blood by Automated count 34.0-46.4 [facility] Hemoglobin [Mass/volume] in BloodOrdered By: Wes Hadley on 06-28-2024 Hemoglobin (Bld) [Mass/Vol] Hemoglobin [Mass/volume] in Blood 11.8-15.4 [facility] INR in Platelet poor plasma by Coagulation assayOrdered By: Wes Hadley on 06-28-2024 INR Coag (PPP) [Relative time] INR in Platelet poor plasma by Coagulation assay [facility] Comment on above: INR Therapeutic Rang [...] in Blood by Automated coun Low 3.8-11.6 [facility] Lymphocytes Auto (Bld) [#/Vo l]Ordered By: Wes Hadley on 06-28-2024 Lymphocytes (Bld) [#/Vol] Lymphocytes [#/volume] in Blood by Automated count Low 1.00-4.8 [facility] Lymphocytes/100 WBC Auto (Bl d)Ordered By: Wes Hadley on 06-28-2024 Lymphocytes/100 WBC (Bld) Lymphocytes/100 leukocytes in Blood by Automated count . [facility] MCH Auto (RBC) [Entitic mass ]Ordered By: Wes Hadley on 06-28-2024 MCH (RBC) [Entitic mass] MCH [Entitic mass] by Automated count 24.7-34.3 [facility] MCHC Auto (RBC) [Mass/Vol]Or dered By: Wes Hadley on 06-28-2024 MCHC (RBC) [Mass/Vol] MCHC [Mass/volume] by Automated count 32.0-35.0 [facility] MCV Auto (RBC) [Entitic vol] Ordered By: Wes Hadley on 06-28-2024 MCV (RBC) [Entitic vol] MCV [Entitic volume] by Automated count 80-100 [facility] Monocytes Auto (Bld) [#/Vol] Ordered By: Wes Hadley on 06-28-2024 Monocytes (Bld) [#/Vol] Automated blood monocyte count 0.0-0.8 [facility] Monocytes/100 WBC Auto (Bld) Ordered By: Wes Hadley on 06-28-2024 Monocytes/100 WBC (Bld) Automated monocyte % . [facility] Neutrophils Auto (Bld) [#/Vo l]Ordered By: Wes Hadley on 06-28-2024 Neutrophils (Bld) [#/Vol] Neutrophils [#/volume] in Blood by Automated count 1.8-7.7 [facility] Neutrophils/100 WBC Auto (Bl d)Ordered By: Wes Hadley on 06-28-2024 Neutrophils/100 WBC (Bld) Automated neutrophil % . [facility] No Panel InformationOrdered By: Wes Hadley on 06-28-2024 Estimated GFR (CKD-EPI) > 60.0 mL/Min [facility] Creatinine Clearance (Chem N/A [facility] Nucleated erythrocytes [Pres ence] in Blood by Automated countOrdered By: Wes Hadley on 06-28-2024 Nucleated RBC Auto Ql (Bld) Nucleated erythrocytes [Presence] in Blood by Automated count 0-0.5 [facility] Platelet mean volume Auto (B ld) [Entitic vol]Ordered By: Wes Hadley on 06-28-2024 Platelet mean volume (Bld) [Entitic vol] Platelet mean volume [Entitic volume] in Blood by Automated count 6.3-10.7 [facility] Platelets Auto (Bld) [#/Vol] Ordered By: Wes Hadley on 06-28-2024 Platelets (Bld) [#/Vol] Platelets [#/volume] in Blood by Automated count Low 150-450 [facility] Potassium [Moles/volume] in Serum or PlasmaOrdered By: Wes Hadley on 06-28-2024 Potassium [Moles/Vol] Potassium [Moles/v olume] in Serum or Plasma 3.5-5.1 [facility] Protein [Mass/volume] in Ser um or PlasmaOrdered By: Wes Hadley on 06-28-2024 Protein [Mass/Vol] Protein [Mass/volume ] in Serum or Plasma 6.4-8.9 [facility] Prothrombin Time INRon 06-28 INR Coag (PPP) [Relative time] 1.4 {INR} Normal [facility] Comment on above: Result Comment: [...] heart valves: 3 - 4.5 PERFORMED BY: [place] [address] PATHOLOGIST RANGER AIDE CARL KWAN M.D. Performed By: #### H BSAG, SMAB, CERULOP, HBSAB, ALPHA PHEN, HBCAB, HCV RX PCR, NIYA CHOICE #### [facility] , #### PT, HEPATIC, CBC, LIPID, FE and TIBC, ALLYSON #### [facility] [address] [place] [address] PT Coag (PPP) [Time] 15.9 s High 9.0-12.9 [facility] Comment on above: Result Comment: A he matocrit value greater than 55% may lead to inaccurate results in coagulation testing. Patients having hematocrit values >55% require a special collection tube for coagulation studies. Please contact the laboratory at [phone] for redraw instructions. Performed By: #### H BSAG, SMAB, CERULOP, HBSAB, ALPHA PHEN, HBCAB, HCV RX PCR, NIYA CHOICE #### [facility] , #### PT, HEPATIC, CBC, LIPID, FE and TIBC, ALLYSON #### [facility] [address] [place] [address] Prothrombin time (PT)Ordered By: Wes Hadley on 06-28-2024 PT Coag (PPP) [Time] Prothrombin time (PT) High 9.0- 12.9 [facility] Comment on above: A hematocrit value g reater than 55% may lead to inaccurate results in coagulation testing. Patients having hematocrit values >55% require a special collection tube for coagulation studies. Please contact the laboratory at [phone] for redraw instructions. RBC Auto (Bld) [#/Vol]Ordere d By: Wes Hadley on 06-28-2024 RBC (Bld) [#/Vol] Erythrocytes [#/volu me] in Blood by Automated count 3.60-5.00 [facility] Serum or plasma albumin/glob ulin mass ratioOrdered By: Wes Hadley on 06-28-2024 Albumin/Globulin [Mass ratio] Serum or plasma albumin/globulin mass ratio [facility] Serum or plasma anion gap de terminationOrdered By: Wes Hadley on 06-28-2024 Anion gap [Moles/Vol] Serum or plasma an ion gap determination 6.0-15.0 [facility] Sodium [Moles/volume] in Ser um or PlasmaOrdered By: Wes Hadley on 06-28-2024 Sodium [Moles/Vol] Sodium [Moles/volume ] in Serum or Plasma Low 136-145 [facility] Urea nitrogen [Mass/volume] in Serum or PlasmaOrdered By: Wes Hadley on 01-09-2025 Urea nitrogen [Mass/Vol] Urea nitrogen [Mass/volume] in Serum or Plasma Low 7-25 [facility] WBC Auto (Bld) [#/Vol]Ordere d By: Wes Hadley on 06-28-2024 WBC (Bld) [#/Vol] Leukocytes [#/volume ] in Blood by Automated count Low 3.8-11.6 [facility] Alanine aminotransferase [En zymatic activity/volume] in Serum or PlasmaOrdered By: Wes Hadley on 05-01-2024 ALT [Catalytic activity/Vol] Alanine aminotransferase [Enzymatic activity/volume] in Serum or Plasma 7-52 [facility] Albumin [Mass/volume] in Ser um or Plasma by Bromocresol green (BCG) dye binding methoOrdered By: Wes Hadley on 05-01-2024 Albumin BCG dye [Mass/Vol] Albumin [Mass/volume] in Serum or Plasma by Bromocresol green (BCG) dye binding metho Low 3.5-5.7 [facility] Alkaline phosphatase [Enzyma tic activity/volume] in Serum or PlasmaOrdered By: Wes Hadley on 05-01-2024 ALP [Catalytic activity/Vol] Alkaline phosphatase [Enzymatic activity/volume] in Serum or Plasma 34-104 [facility] Aspartate aminotransferase [ Enzymatic activity/volume] in Serum or PlasmaOrdered By: Wes Hadley on 05-01-2024 AST [Catalytic activity/Vol] Aspartate aminotransferase [Enzymatic activity/volume] in Serum or Plasma 13-39 [facility] Basophils Auto (Bld) [#/Vol] Ordered By: Wes Hadley on 05-01-2024 Basophils (Bld) [#/Vol] Automated basophil count 0.0-0.2 [facility] Basophils/100 WBC Auto (Bld) Ordered By: Wes Hadley on 05-01-2024 Basophils/100 WBC (Bld) Automated basophil % . [facility] Bilirubin.total [Mass/volume ] in Serum or PlasmaOrdered By: Wes Hadley on 05-01-2024 Bilirubin [Mass/Vol] Bilirubin.total [Mass/volume] in Serum or Plasma High 0.3-1.0 [facility] Comment on above: Samples from patient s who have taken Naproxen have shown spurious elevation in Total Bilirubin levels. A metabolite of Naproxen, O-desmethylnaproxen, has been shown to interfere with the Rio-Melo method for measuring Total Bilirubin. Calcium [Mass/volume] in Ser um or PlasmaOrdered By: Wes Hadley on 05-01-2024 Calcium [Mass/Vol] Calcium [Mass/volume ] in Serum or Plasma 8.6-10.3 [facility] Carbon dioxide, total [Moles /volume] in Serum or PlasmaOrdered By: Wes Hadley on 05-01-2024 CO2 [Moles/Vol] Carbon dioxide, tota l [Moles/volume] in Serum or Plasma 21.0-31.0 [facility] Chloride [Moles/volume] in S warner or PlasmaOrdered By: Wes Hadley on 05-01-2024 Chloride [Moles/Vol] Chloride [Moles/vol ume] in Serum or Plasma 98-107 [facility] Complete Blood Count Auto Di ffon 05-01-2024 Basophils (Bld) [#/Vol] 0.0 10*3/uL Normal 0.0-0.2 [facility] Comment on above: Result Comment: PERF ORMED BY: [place] [address] PATHOLOGIST RANGER AIDE SANGITA BLACK M.D. Performed By: #### H BSAG, SMAB, CERULOP, HBSAB, ALPHA PHEN, HBCAB, HCV RX PCR, NIYA CHOICE #### [facility] , #### PT, HEPATIC, CBC, LIPID, FE and TIBC, [place]YSON #### [address] Basophils/100 WBC (Bld) 0.9 % Normal . [facility] Comment on above: Performed By: #### H BSAG, SMAB, CERULOP, HBSAB, ALPHA PHEN, HBCAB, HCV RX PCR, NIYA CHOICE #### [facility] , #### PT, HEPATIC, CBC, LIPID, FE and TIBC, ALLYSON #### [address] Eosinophils (Bld) [#/Vol] 0.0 10*3/uL Normal 0.0-0.45 [facility] Comment on above: Performed By: #### H BSAG, SMAB, CERULOP, HBSAB, ALPHA PHEN, HBCAB, HCV RX PCR, NIYA CHOICE #### [facility] , #### PT, HEPATIC, CBC, LIPID, FE and TIBC, ALLYSON #### [address] Eosinophils/100 WBC (Bld) 1.1 % Normal . [facility] Comment on above: Performed By: #### H BSAG, SMAB, CERULOP, HBSAB, ALPHA PHEN, HBCAB, HCV RX PCR, NIYA CHOICE #### [facility] , #### PT, HEPATIC, CBC, LIPID, FE and TIBC, ALLYSON #### [address] Erythrocyte distribution width (RBC) [Ratio] 15.0 % Normal 11.9-15.3 [facility] Comment on above: Performed By: #### H BSAG, SMAB, CERULOP, HBSAB, ALPHA PHEN, HBCAB, HCV RX PCR, NIYA CHOICE #### [facility] , #### PT, HEPATIC, CBC, LIPID, FE and TIBC, ALLYSON #### [address] Hematocrit (Bld) [Volume fraction] 32.9 % Low 34.0-46.4 [facility] Comment on above: Performed By: #### H BSAG, SMAB, CERULOP, HBSAB, ALPHA PHEN, HBCAB, HCV RX PCR, NIYA CHOICE #### [facility] , #### PT, HEPATIC, CBC, LIPID, FE and TIBC, ALLYSON #### [address] Hemoglobin (Bld) [Mass/Vol] 11.3 g/dL Low 11.8-15.4 [facility] Comment on above: Performed By: #### H BSAG, SMAB, CERULOP, HBSAB, ALPHA PHEN, HBCAB, HCV RX PCR, NIYA CHOICE #### [facility] , #### PT, HEPATIC, CBC, LIPID, FE and TIBC, ALLYSON #### [address] Lymphocytes (Bld) [#/Vol] 0.8 10*3/uL Low 1.00-4.8 [facility] Comment on above: Performed By: #### H BSAG, SMAB, CERULOP, HBSAB, ALPHA PHEN, HBCAB, HCV RX PCR, NIYA CHOICE #### [facility] , #### PT, HEPATIC, CBC, LIPID, FE and TIBC, ALLYSON #### [address] Lymphocytes/100 WBC (Bld) 19.8 % Normal . [facility] Comment on above: Performed By: #### H BSAG, SMAB, CERULOP, HBSAB, ALPHA PHEN, HBCAB, HCV RX PCR, NIYA CHOICE #### [facility] , #### PT, HEPATIC, CBC, LIPID, FE and TIBC, ALLYSON #### [address] MCH (RBC) [Entitic mass] 30.9 pg Normal 24.7-34.3 [facility] Comment on above: Performed By: #### H BSAG, SMAB, CERULOP, HBSAB, ALPHA PHEN, HBCAB, HCV RX PCR, NIYA CHOICE #### [facility] , #### PT, HEPATIC, CBC, LIPID, FE and TIBC, ALLYSON #### [address] MCV (RBC) [Entitic vol] 90.3 fL Normal 80-100 [facility] Comment on above: Performed By: #### H BSAG, SMAB, CERULOP, HBSAB, ALPHA PHEN, HBCAB, HCV RX PCR, NIYA CHOICE #### [facility] , #### PT, HEPATIC, CBC, LIPID, FE and TIBC, ALLYSON #### [address] Mean Corpuscular HGB Conc 34.2 g/dL Normal 32.0-35.0 [facility] Comment on above: Performed By: #### H BSAG, SMAB, CERULOP, HBSAB, ALPHA PHEN, HBCAB, HCV RX PCR, NIYA CHOICE #### [facility] , #### PT, HEPATIC, CBC, LIPID, FE and TIBC, ALLYSON #### [address] Monocytes (Bld) [#/Vol] 0.4 10*3/uL Normal 0.0-0.8 [facility] Comment on above: Performed By: #### H BSAG, SMAB, CERULOP, HBSAB, ALPHA PHEN, HBCAB, HCV RX PCR, NIYA CHOICE #### [facility] , #### PT, HEPATIC, CBC, LIPID, FE and TIBC, ALLYSON #### [address] Monocytes/100 WBC (Bld) 11.6 % Normal . [facility] Comment on above: Performed By: #### H BSAG, SMAB, CERULOP, HBSAB, ALPHA PHEN, HBCAB, HCV RX PCR, NIYA CHOICE #### [facility] , #### PT, HEPATIC, CBC, LIPID, FE and TIBC, ALLYSON #### [address] Neutrophils (Bld) [#/Vol] 2.5 10*3/uL Normal 1.8-7.7 [facility] Comment on above: Performed By: #### H BSAG, SMAB, CERULOP, HBSAB, ALPHA PHEN, HBCAB, HCV RX PCR, NIYA CHOICE #### [facility] , #### PT, HEPATIC, CBC, LIPID, FE and TIBC, ALLYSON #### [address] Neutrophils/100 WBC (Bld) 66.6 % Normal . [facility] Comment on above: Performed By: #### H BSAG, SMAB, CERULOP, HBSAB, ALPHA PHEN, HBCAB, HCV RX PCR, NIYA CHOICE #### [facility] , #### PT, HEPATIC, CBC, LIPID, FE and TIBC, ALLYSON #### [address] NRBC% 0.0 /100{WBC} Normal 0-0.5 [facility] Comment on above: Performed By: #### H BSAG, SMAB, CERULOP, HBSAB, ALPHA PHEN, HBCAB, HCV RX PCR, NIYA CHOICE #### [facility] , #### PT, HEPATIC, CBC, LIPID, FE and TIBC, ALLYSON #### [address] Platelet mean volume (Bld) [Entitic vol] 7.4 fL Normal 6.3-10.7 [facility] Comment on above: Performed By: #### H BSAG, SMAB, CERULOP, HBSAB, ALPHA PHEN, HBCAB, HCV RX PCR, NIYA CHOICE #### [facility] , #### PT, HEPATIC, CBC, LIPID, FE and TIBC, ALLYSON #### [address] Platelets (Bld) [#/Vol] 124 10*3/uL Low 150-450 [facility] Comment on above: Performed By: #### H BSAG, SMAB, CERULOP, HBSAB, ALPHA PHEN, HBCAB, HCV RX PCR, NIYA CHOICE #### [facility] , #### PT, HEPATIC, CBC, LIPID, FE and TIBC, ALLYSON #### [address] RBC (Bld) [#/Vol] 3.64 10*6/uL Normal 3.60-5.00 [facility] Comment on above: Performed By: #### H BSAG, SMAB, CERULOP, HBSAB, ALPHA PHEN, HBCAB, HCV RX PCR, NIYA CHOICE #### [facility] , #### PT, HEPATIC, CBC, LIPID, FE and TIBC, ALLYSON #### [address] WBC (Bld) [#/Vol] 3.8 10*3/uL Normal 3.8-11.6 [facility] Comment on above: Performed By: #### H BSAG, SMAB, CERULOP, HBSAB, ALPHA PHEN, HBCAB, HCV RX PCR, NIYA CHOICE #### [facility] , #### PT, HEPATIC, CBC, LIPID, FE and TIBC, ALLYSON #### [address] [facility] 05-01-2024 Albumin [Mass/Vol] 3.4 g/dL Low 3.5-5.7 [facility] Comment on above: Performed By: #### H BSAG, SMAB, CERULOP, HBSAB, ALPHA PHEN, HBCAB, HCV RX PCR, NIYA CHOICE #### [facility] , #### PT, HEPATIC, CBC, LIPID, FE and TIBC, ALLYSON #### [address] Albumin/Globulin [Mass ratio] 1.1 {ratio} Normal [facility] Comment on above: Performed By: #### H BSAG, SMAB, CERULOP, HBSAB, ALPHA PHEN, HBCAB, HCV RX PCR, NIYA CHOICE #### [facility] , #### PT, HEPATIC, CBC, LIPID, FE and TIBC, ALLYSON #### [address] ALP [Catalytic activity/Vol] 73 U/L Normal 34-104 [facility] Comment on above: Performed By: #### H BSAG, SMAB, CERULOP, HBSAB, ALPHA PHEN, HBCAB, HCV RX PCR, NIYA CHOICE #### [facility] , #### PT, HEPATIC, CBC, LIPID, FE and TIBC, ALLYSON #### [facility] [address] ALT [Catalytic activity/Vol] 17 U/L Normal 7-52 [facility] Comment on above: Performed By: #### H BSAG, SMAB, CERULOP, HBSAB, ALPHA PHEN, HBCAB, HCV RX PCR, NIYA CHOICE #### [facility] , #### PT, HEPATIC, CBC, LIPID, FE and TIBC, ALLYSON #### [address] Anion gap [Moles/Vol] 11.7 mmol/L Normal 6.0-15.0 [facility] Comment on above: Performed By: #### H BSAG, SMAB, CERULOP, HBSAB, ALPHA PHEN, HBCAB, HCV RX PCR, NIYA CHOICE #### [facility] , #### PT, HEPATIC, CBC, LIPID, FE and TIBC, ALLYSON #### [address] AST [Catalytic activity/Vol] 36 U/L Normal 13-39 [facility] Comment on above: Performed By: #### H BSAG, SMAB, CERULOP, HBSAB, ALPHA PHEN, HBCAB, HCV RX PCR, NIYA CHOICE #### [facility] , #### PT, HEPATIC, CBC, LIPID, FE and TIBC, ALLYSON #### [facility] [address] Bilirubin [Mass/Vol] 1.8 mg/dL High 0.3-1.0 [facility] Comment on above: Result Comment: Samp les from patients who have taken Naproxen have shown spurious elevation in Total Bilirubin levels. A metabolite of Naproxen, O-desmethylnaproxen, has been shown to interfere with the Rio-Melo method for measuring Total Bilirubin. Performed By: #### H BSAG, SMAB, CERULOP, HBSAB, ALPHA PHEN, HBCAB, HCV RX PCR, NIYA CHOICE #### [facility] , #### PT, HEPATIC, CBC, LIPID, FE and TIBC, ALLYSON #### [address] Calcium [Mass/Vol] 9.5 mg/dL Normal 8.6-10.3 [facility] Comment on above: Performed By: #### H BSAG, SMAB, CERULOP, HBSAB, ALPHA PHEN, HBCAB, HCV RX PCR, NIYA CHOICE #### [facility] , #### PT, HEPATIC, CBC, LIPID, FE and TIBC, ALLYSON #### [address] Chloride [Moles/Vol] 99 mmol/L Normal 98-107 [facility] Comment on above: Performed By: #### H BSAG, SMAB, CERULOP, HBSAB, ALPHA PHEN, HBCAB, HCV RX PCR, NIYA CHOICE #### [facility] , #### PT, HEPATIC, CBC, LIPID, FE and TIBC, ALLYSON #### [address] CO2 [Moles/Vol] 22.9 mmol/L Normal 21.0-31.0 [facility] Comment on above: Performed By: #### H BSAG, SMAB, CERULOP, HBSAB, ALPHA PHEN, HBCAB, HCV RX PCR, NIYA CHOICE #### [facility] , #### PT, HEPATIC, CBC, LIPID, FE and TIBC, ALLYSON #### [address] Creatinine [Mass/Vol] 0.60 mg/dL Normal 0.60-1.20 [facility] Comment on above: Performed By: #### H BSAG, SMAB, CERULOP, HBSAB, ALPHA PHEN, HBCAB, HCV RX PCR, NIYA CHOICE #### [facility] , #### PT, HEPATIC, CBC, LIPID, FE and TIBC, ALLYSON #### [address] Creatinine Clr Calc Pharmacy 86.10 Normal [facility] Comment on above: Result Comment: PERF ORMED BY: [place] [address] PATHOLOGIST RANGER AIDE SANGITA BLACK M.D. Performed By: #### H BSAG, SMAB, CERULOP, HBSAB, ALPHA PHEN, HBCAB, HCV RX PCR, NIYA CHOICE #### [facility] , #### PT, HEPATIC, CBC, LIPID, FE and TIBC, ALLYSON #### [address] GFR/1.73 sq M.predicted MDRD (S/P/Bld) [Vol rate/Area] mL/min/{1.73_m2} Normal [facility] Comment on above: Performed By: #### H BSAG, SMAB, CERULOP, HBSAB, ALPHA PHEN, HBCAB, HCV RX PCR, NIYA CHOICE #### [facility] , #### PT, HEPATIC, CBC, LIPID, FE and TIBC, ALLYSON #### [address] Globulin (S) [Mass/Vol] 3.2 g/dL Normal [facility] Comment on above: Performed By: #### H BSAG, SMAB, CERULOP, HBSAB, ALPHA PHEN, HBCAB, HCV RX PCR, NIYA CHOICE #### [facility] , #### PT, HEPATIC, CBC, LIPID, FE and TIBC, ALLYSON #### [address] Glucose [Mass/Vol] 113 mg/dL High 70-100 [facility] Comment on above: Result Comment: [place] Glucose Reference Range is dependent on time and content of last meal. Glucose of more than 200 mg/dL in a nonstressed, ambulatory subject supports the diagnosis of Diabetes Mellitus. ADA recommended reference range Performed By: #### H BSAG, SMAB, CERULOP, HBSAB, ALPHA PHEN, HBCAB, HCV RX PCR, NIYA CHOICE #### [facility] , #### PT, HEPATIC, CBC, LIPID, FE and TIBC, ALLYSON #### [address] Potassium [Moles/Vol] 4.6 mmol/L Normal 3.5-5.1 [facility] Comment on above: Performed By: #### H BSAG, SMAB, CERULOP, HBSAB, ALPHA PHEN, HBCAB, HCV RX PCR, NIYA CHOICE #### [facility] , #### PT, HEPATIC, CBC, LIPID, FE and TIBC, ALLYSON #### [address] Protein [Mass/Vol] 6.6 g/dL Normal 6.4-8.9 [facility] Comment on above: Performed By: #### H BSAG, SMAB, CERULOP, HBSAB, ALPHA PHEN, HBCAB, HCV RX PCR, NIYA CHOICE #### [facility] , #### PT, HEPATIC, CBC, LIPID, FE and TIBC, ALLYSON #### [address] Sodium [Moles/Vol] 129 mmol/L Low 136-145 [facility] Comment on above: Performed By: #### H BSAG, SMAB, CERULOP, HBSAB, ALPHA PHEN, HBCAB, HCV RX PCR, NIYA CHOICE #### [facility] , #### PT, HEPATIC, CBC, LIPID, FE and TIBC, ALLYSON #### [address] Urea nitrogen [Mass/Vol] 10 mg/dL Normal 7-25 [facility] Comment on above: Performed By: #### H BSAG, SMAB, CERULOP, HBSAB, ALPHA PHEN, HBCAB, HCV RX PCR, NIYA CHOICE #### [facility] , #### PT, HEPATIC, CBC, LIPID, FE and TIBC, ALLYSON #### [facility] [address] [id number] [facility] Creatinine [Mass/volume] in Serum or PlasmaOrdered By: Wes Hadley on 05-01-2024 Creatinine [Mass/Vol] Creatinine [Mass/v olume] in Serum or Plasma 0.60-1.20 [facility] Eosinophils Auto (Bld) [#/Vo l]Ordered By: Wes Hadley on 05-01-2024 Eosinophils (Bld) [#/Vol] Automated eosinophil count 0.0-0.45 [facility] Eosinophils/100 WBC Auto (Bl d)Ordered By: Wes Hadley on 05-01-2024 Eosinophils/100 WBC (Bld) Automated eosinophil % . [facility] Erythrocyte distribution wid th Auto (RBC) [Ratio]Ordered By: Wes aHdley on 05-01-2024 Erythrocyte distribution width (RBC) [Ratio] Erythrocyte distribution width [Ratio] by Automated count 11.9-15.3 [facility] Globulin Calc (S) [Mass/Vol] Ordered By: Wes Hadley on 05-01-2024 Globulin (S) [Mass/Vol] Serum globulin measurement by calculation (mass/volume) [facility] Glucose Glucometer (dC) [M ass/Vol]Ordered By: Wes Hadley on 05-01-2024 Glucose [Mass/Vol] Capillary blood gluc ose measurement by glucometer (mass/volume) [facility] Comment on above: Random Glucose Refer ence Range is dependent on time and content of last meal. Glucose of more than 200 mg/dL in a nonstressed, ambulatory subject supports the diagnosis of Diabetes Mellitus. Glucose Poct Glucometerson 1 07-01-2023 Glucose [Mass/Vol] 117 mg/dL Normal [facility] Comment on above: Result Comment: [place] Glucose Reference Range is dependent on time and content of last meal. Glucose of more than 200 mg/dL in a nonstressed, ambulatory subject supports the diagnosis of Diabetes Mellitus. PERFORMED BY: [facility] [address] [facility] [address] [address] PATHOLOGIST RANGER AIDE SANGITA BLACK M.D. Performed By: #### H BSAG, SMAB, CERULOP, HBSAB, ALPHA PHEN, HBCAB, HCV RX PCR, NIYA CHOICE #### [facility] , #### PT, HEPATIC, CBC, LIPID, FE and TIBC, ALLYSON #### [facility] [address] Glucose [Mass/volume] in Ser um or PlasmaOrdered By: Wes Hadley on 05-01-2024 Glucose [Mass/Vol] Glucose [Mass/volume ] in Serum or Plasma High 70-100 [facility] Comment on above: ADA recommended refe rence rangeRandom Glucose Reference Range is dependent on time and content of last meal. Glucose of more than 200 mg/dL in a nonstressed, ambulatory subject supports the diagnosis of Diabetes Mellitus. Hematocrit Auto (Bld) [Volum e fraction]Ordered By: Wes Hadley on 05-01-2024 Hematocrit (Bld) [Volume fraction] Hematocrit [Volume Fraction] of Blood by Automated count Low 34.0-46.4 [facility] Hemoglobin [Mass/volume] in BloodOrdered By: Wes Hadley on 05-01-2024 Hemoglobin (Bld) [Mass/Vol] Hemoglobin [Mass/volume] in Blood Low 11.8-15.4 [facility] INR in Platelet poor plasma by Coagulation assayOrdered By: Wes Hadley on 05-01-2024 INR Coag (PPP) [Relative time] INR in Platelet poor plasma by Coagulation assay [facility] Comment on above: INR Therapeutic Rang [...] erythrocytes in Blood by Automated coun 3.8-11.6 [facility] Lymphocytes Auto (Bld) [#/Vo l]Ordered By: Wes Hadley on 05-01-2024 Lymphocytes (Bld) [#/Vol] Lymphocytes [#/volume] in Blood by Automated count Low 1.00-4.8 [facility] Lymphocytes/100 WBC Auto (Bl d)Ordered By: Wes Hadley on 05-01-2024 Lymphocytes/100 WBC (Bld) Lymphocytes/100 leukocytes in Blood by Automated count . [facility] MCH Auto (RBC) [Entitic mass ]Ordered By: Wes Hadley on 05-01-2024 MCH (RBC) [Entitic mass] MCH [Entitic mass] by Automated count 24.7-34.3 [facility] MCHC Auto (RBC) [Mass/Vol]Or dered By: Wes Hadley on 05-01-2024 MCHC (RBC) [Mass/Vol] MCHC [Mass/volume] by Automated count 32.0-35.0 [facility] MCV Auto (RBC) [Entitic vol] Ordered By: Wes Hadley on 05-01-2024 MCV (RBC) [Entitic vol] MCV [Entitic volume] by Automated count 80-100 [facility] Monocytes Auto (Bld) [#/Vol] Ordered By: Wes Hadley on 05-01-2024 Monocytes (Bld) [#/Vol] Automated blood monocyte count 0.0-0.8 [facility] Monocytes/100 WBC Auto (Bld) Ordered By: Wes Hadley on 05-01-2024 Monocytes/100 WBC (Bld) Automated monocyte % . [facility] Neutrophils Auto (Bld) [#/Vo l]Ordered By: Wes Hadley on 05-01-2024 Neutrophils (Bld) [#/Vol] Neutrophils [#/volume] in Blood by Automated count 1.8-7.7 [facility] Neutrophils/100 WBC Auto (Bl d)Ordered By: Wes Hadley on 05-01-2024 Neutrophils/100 WBC (Bld) Automated neutrophil % . [facility] No Panel InformationOrdered By: Wes Hadley on 05-01-2024 Estimated GFR (CKD-EPI) > 60.0 mL/Min [facility] Creatinine Clearance (Chem 86.10 [facility] Nucleated erythrocytes [Pres ence] in Blood by Automated countOrdered By: Wes Hadley on 05-01-2024 Nucleated RBC Auto Ql (Bld) Nucleated erythrocytes [Presence] in Blood by Automated count 0-0.5 [facility] Platelet mean volume Auto (B ld) [Entitic vol]Ordered By: Wes Hadley on 05-01-2024 Platelet mean volume (Bld) [Entitic vol] Platelet mean volume [Entitic volume] in Blood by Automated count 6.3-10.7 [facility] Platelets Auto (Bld) [#/Vol] Ordered By: Wes Hadley on 05-01-2024 Platelets (Bld) [#/Vol] Platelets [#/volume] in Blood by Automated count Low 150-450 [facility] Potassium [Moles/volume] in Serum or PlasmaOrdered By: Wes Hadley on 05-01-2024 Potassium [Moles/Vol] Potassium [Moles/v olume] in Serum or Plasma 3.5-5.1 [facility] Protein [Mass/volume] in Ser um or PlasmaOrdered By: Wes Hadley on 05-01-2024 Protein [Mass/Vol] Protein [Mass/volume ] in Serum or Plasma 6.4-8.9 [facility] Prothrombin Time INRon 05-01 INR Coag (PPP) [Relative time] 1.5 {INR} Normal [facility] Comment on above: Result Comment: [...] heart valves: 3 - 4.5 PERFORMED BY: [facility] [place] [address] PATHOLOGIST RANGER AIDE SANGITA BLACK M.D. Performed By: #### H BSAG, SMAB, CERULOP, HBSAB, ALPHA PHEN, HBCAB, HCV RX PCR, NIYA CHOICE #### [facility] , #### PT, HEPATIC, CBC, LIPID, FE and TIBC, ALLYSON #### [facility] [address] [id number] [place] PT Coag (PPP) [Time] 16.8 s High 9.0-12.9 [facility] Comment on above: Result Comment: A he matocrit value greater than 55% may lead to inaccurate results in coagulation testing. Patients having hematocrit values >55% require a special collection tube for coagulation studies. Please contact the laboratory at [phone] for redraw instructions. Performed By: #### H BSAG, SMAB, CERULOP, HBSAB, ALPHA PHEN, HBCAB, HCV RX PCR, NIYA CHOICE #### [facility] , #### PT, HEPATIC, CBC, LIPID, FE and TIBC, ALLYSON #### [facility] [address] [id number] [facility] Prothrombin time (PT)Ordered By: Wes Hadley on 05-01-2024 PT Coag (PPP) [Time] Prothrombin time (PT) High 9.0- 12.9 [facility] Comment on above: A hematocrit value g reater than 55% may lead to inaccurate results in coagulation testing. Patients having hematocrit values >55% require a special collection tube for coagulation studies. Please contact the laboratory at [phone] for redraw instructions. RBC Auto (Bld) [#/Vol]Ordere d By: Wes Hadley on 05-01-2024 RBC (Bld) [#/Vol] Erythrocytes [#/volu me] in Blood by Automated count 3.60-5.00 [facility] Serum or plasma albumin/glob ulin mass ratioOrdered By: Wes Hadley on 05-01-2024 Albumin/Globulin [Mass ratio] Serum or plasma albumin/globulin mass ratio [facility] Serum or plasma anion gap de terminationOrdered By: Wes Hadley on 05-01-2024 Anion gap [Moles/Vol] Serum or plasma an ion gap determination 6.0-15.0 [facility] Sodium [Moles/volume] in Ser um or PlasmaOrdered By: Wes Hadley on 05-01-2024 Sodium [Moles/Vol] Sodium [Moles/volume ] in Serum or Plasma Low 136-145 [facility] Urea nitrogen [Mass/volume] in Serum or PlasmaOrdered By: Wes Hadley on 05-01-2024 Urea nitrogen [Mass/Vol] Urea nitrogen [Mass/volume] in Serum or Plasma 7-25 [facility] WBC Auto (Bld) [#/Vol]Ordere d By: Wes Hadley on 05-01-2024 WBC (Bld) [#/Vol] Leukocytes [#/volume ] in Blood by Automated count 3.8-11.6 [facility] US liveron 04-02-2024 liver [facility] [place] [address] Ultrasound Report Signed Patient: Bernadine Bhakta MR#: [id number] : 1965 Acct:[id number] Age/Sex: 58 / F ADM Date: 04/02/24 Loc: Room: Type: [facility] Attending Dr: Wes Hadley MD Ordering [...] OF ASCITES.. Impression dictated by: Shahzad Ortiz Jr. DMassimo04/02/2024 4:08 PM Dictation Location: [place] [address] Tech: Sydnie Ceci Transcribed By: JOSE ELIAS 04/02/24 1608 Dictated By: Shahzad Ortiz Jr, DO 04/02/24 1603 Signed By: 04/02/24 1608 Normal [facility] US paracentesis abd w/imageo n 03-01-2024 US paracentesis abd w/image [facility] [place] [address] Ultrasound Report Signed Patient: Bernadine Bhakta MR#: [id number] : 1965 Acct:[id number] Age/Sex: 58 / F ADM Date: 03/01/24 Loc: Room: Type: [facility] Attending Dr: Serene Zelaya [employer] LABORER-C Ordering Provider: Serene Zelaya PA-C Date of [...] local anesthesia with lidocaine, a 5 Turkish Yueh sheath catheter was advanced into the peritoneal cavity with return of clear yellow fluid. Approximately 5700 mL of ascites was drained. The catheter was removed. There were no immediate complications. Patient was sent to the infusion center for albumin replacement therapy. US/US paracentesis abd w/image IMPRESSION: STATUS POST ULTRASOUND-GUIDED THERAPEUTIC PARACENTESIS. Impression dictated by: Serene Greenberg M.D.03/01/2024 3:26 PM Dictation Location: [facility] Tech: Kathy Meade Transcribed By: JOSE ELIAS 03/01/24 1526 Dictated By: Serene Greenberg MD 03/01/24 1525 Signed By: 03/01/24 1526 Normal [facility] NIYA with Reflexon 02-28-2024 NIYA with Reflex Negative Normal Negative [facility] Comment on above: Result Comment: Perf ormed at: CB - [facility] [place] [address], [place], [place] [id number] Customer Experience Retail Clerk: Gonzales Poe PhD, Phone: [phone] Performed By: #### H BSAG, SMAB, CERULOP, HBSAB, ALPHA PHEN, HBCAB, HCV RX PCR, NIYA CHOICE #### [facility] , #### PT, HEPATIC, CBC, LIPID, FE and TIBC, ALLYSON #### [address] Actin smooth muscle IgG Ab [ Units/volume] in SerumOrdered By: Wes Hadley on 02-28-2024 Actin smooth muscle IgG Qn (S) 18 Units 0-19 [facility] Comment on above: Negative 0 - 19 Weak positive 20 - 30 Moderate to strong positive >30 Actin Antibodies are found in 52-85% of patients with autoimmune hepatitis or chronic active hepatitis and in 22% of patients with primary biliary cirrhosis.Performed at: [address] [id number] Director: Gonzales Poe PhD, Phone: [phone] Actin smooth muscle IgG Qn (S) Actin smooth muscle IgG Ab [Units/volume] in Serum 0- [facility] Comment on above: Negative 0 - 19 Weak positive 20 - 30 Moderate to strong positive >30 Actin Antibodies are found in 52-85% of patients with autoimmune hepatitis or chronic active hepatitis and in 22% of patients with primary biliary cirrhosis.Performed at: [address] [id number] Director: Gonzales Poe PhD, Phone: [phone] Alanine aminotransferase [En zymatic activity/volume] in Serum or PlasmaOrdered By: Wes Hadley on 02-28-2024 ALT [Catalytic activity/Vol] 10 U/L Normal 7-52 [facility] Comment on above: Performed By: #### H BSAG, SMAB, CERULOP, HBSAB, ALPHA PHEN, HBCAB, HCV RX PCR, NIYA CHOICE #### [facility] , #### PT, HEPATIC, CBC, LIPID, FE and TIBC, ALLYSON #### [facility] [address] ALT [Catalytic activity/Vol] Alanine aminotransferase [Enzymatic activity/volume] in Serum or Plasma [facility] Albumin [Mass/volume] in Ser um or Plasma by Bromocresol green (BCG) dye binding methoOrdered By: Wes Hadley on 02-28-2024 Albumin BCG dye [Mass/Vol] 3.1 g/dL Low 3.5-5.7 [facility] Albumin BCG dye [Mass/Vol] Albumin [Mass/volume] in Serum or Plasma by Bromocresol green (BCG) dye binding metho Low 3.5-5.7 [facility] Alkaline phosphatase [Enzyma tic activity/volume] in Serum or PlasmaOrdered By: Wes Hadley on 02-28-2024 ALP [Catalytic activity/Vol] 72 U/L Normal 34-104 [facility] Comment on above: Performed By: #### H BSAG, SMAB, CERULOP, HBSAB, ALPHA PHEN, HBCAB, HCV RX PCR, NIYA CHOICE #### [facility] , #### PT, HEPATIC, CBC, LIPID, FE and TIBC, ALLYSON #### [address] ALP [Catalytic activity/Vol] Alkaline phosphatase [Enzymatic activity/volume] in Serum or Plasma 34 [facility] Rpoli-9-[id number] Phenotyp kimberley 02-28-2024 Alpha 1 Anti-Trypsin 233 mg/dL High 101-187 [facility] Comment on above: Performed By: #### H BSAG, SMAB, CERULOP, HBSAB, ALPHA PHEN, HBCAB, HCV RX PCR, NIYA CHOICE #### [facility] , #### PT, HEPATIC, CBC, LIPID, FE and TIBC, ALLYSON #### [address] Phenotype (P1) MM Normal . [facility] Comment on above: Result Comment: MM Phenotype is considered to be normal , producing normal serum levels of muxwv-[id number]-ujrtpyta inhibitor and not associated with clinical disease. [...] Ranges used to confirm phenotype. Performed at: [address] [id number] Customer Experience Retail Clerk: Gonzales Poe PhD, Phone: [phone] Performed at: [address] [id number] Customer Experience Retail Clerk: Ankita Ruelas MD, Phone: [phone] Performed By: #### H BSAG, SMAB, CERULOP, HBSAB, ALPHA PHEN, HBCAB, HCV RX PCR, NIYA CHOICE #### [facility] , #### PT, HEPATIC, CBC, LIPID, FE and TIBC, ALLYSON #### [facility] [address] Aspartate aminotransferase [ Enzymatic activity/volume] in Serum or PlasmaOrdered By: Wes Hadley on 02-28-2024 AST [Catalytic activity/Vol] 35 U/L Normal 13-39 [facility] Comment on above: Performed By: #### H BSAG, SMAB, CERULOP, HBSAB, ALPHA PHEN, HBCAB, HCV RX PCR, NIYA CHOICE #### [facility] , #### PT, HEPATIC, CBC, LIPID, FE and TIBC, ALLYSON #### [facility] [address] [id number] [facility] AST [Catalytic activity/Vol] Aspartate aminotransferase [Enzymatic activity/volume] in Serum or Plasma 13-39 [facility] Automated basophil %Ordered By: Wes Hadley on 02-28-2024 Basophils/100 WBC (Bld) 0.8 % Normal . [facility] Comment on above: Performed By: #### H BSAG, SMAB, CERULOP, HBSAB, ALPHA PHEN, HBCAB, HCV RX PCR, NIYA CHOICE #### [facility] , #### PT, HEPATIC, CBC, LIPID, FE and TIBC, ALLYSON #### [facility] [address] [place] [address] Automated basophil countOrde red By: Wes Hadley on 02-28-2024 Basophils (Bld) [#/Vol] 0.0 10*3/uL Normal 0.0-0.2 [facility] Comment on above: Result Comment: PERF ORMED BY: [address] [place] [address] PATHOLOGIST RANGER AIDE SANGITA BLACK M.D. Performed By: #### H BSAG, SMAB, CERULOP, HBSAB, ALPHA PHEN, HBCAB, HCV RX PCR, NIYA CHOICE #### [facility] , #### PT, HEPATIC, CBC, LIPID, FE and TIBC, ALLYSON #### [facility] [address] [place] [address] Automated blood monocyte cou ntOrdered By: Wes Hadley on 02-28-2024 Monocytes (Bld) [#/Vol] 0.7 10*3/uL Normal 0.0-0.8 [facility] Comment on above: Performed By: #### H BSAG, SMAB, CERULOP, HBSAB, ALPHA PHEN, HBCAB, HCV RX PCR, NIYA CHOICE #### [facility] , #### PT, HEPATIC, CBC, LIPID, FE and TIBC, ALLYSON #### [facility] [address] [place] [address] Automated eosinophil %Ordere d By: Wes Hadley on 02-28-2024 Eosinophils/100 WBC (Bld) 1.1 % Normal . [facility] Comment on above: Performed By: #### H BSAG, SMAB, CERULOP, HBSAB, ALPHA PHEN, HBCAB, HCV RX PCR, NIYA CHOICE #### [facility] , #### PT, HEPATIC, CBC, LIPID, FE and TIBC, ALLYSON #### [address] Automated eosinophil countOr dered By: Wes Hadley on 02-28-2024 Eosinophils (Bld) [#/Vol] 0.1 10*3/uL Normal 0.0-0.45 [facility] Comment on above: Performed By: #### H BSAG, SMAB, CERULOP, HBSAB, ALPHA PHEN, HBCAB, HCV RX PCR, NIYA CHOICE #### [facility] , #### PT, HEPATIC, CBC, LIPID, FE and TIBC, ALLYSON #### [address] Automated monocyte %Ordered By: Wes Hadley on 02-28-2024 Monocytes/100 WBC (Bld) 11.8 % Normal . [facility] Comment on above: Performed By: #### H BSAG, SMAB, CERULOP, HBSAB, ALPHA PHEN, HBCAB, HCV RX PCR, NIYA CHOICE #### [facility] , #### PT, HEPATIC, CBC, LIPID, FE and TIBC, ALLYSON #### [address] Automated neutrophil %Ordere d By: Wes Hadley on 02-28-2024 Neutrophils/100 WBC (Bld) 66.9 % Normal . [facility] Comment on above: Performed By: #### H BSAG, SMAB, CERULOP, HBSAB, ALPHA PHEN, HBCAB, HCV RX PCR, NIYA CHOICE #### [facility] , #### PT, HEPATIC, CBC, LIPID, FE and TIBC, ALLYSON #### [address] Basophils Auto (Bld) [#/Vol] Ordered By: Wes Hadley on 02-28-2024 Basophils (Bld) [#/Vol] Automated basophil count 0.0-0.2 [facility] Basophils/100 WBC Auto (Bld) Ordered By: Wes Hadley on 02-28-2024 Basophils/100 WBC (Bld) Automated basophil % . [facility] Bilirubin.direct [Mass/volum e] in Serum or PlasmaOrdered By: Wes Hadley on 02-28-2024 Bilirubin.direct [Mass/Vol] 1.40 mg/dL High 0.03-0.18 [facility] Bilirubin.direct [Mass/Vol] Bilirubin.direct [Mass/volume] in Serum or Plasma High 0.03-0.18 [facility] Bilirubin.total [Mass/volume ] in Serum or PlasmaOrdered By: Wes Hadley on 02-28-2024 Bilirubin [Mass/Vol] 3.6 mg/dL High 0.3-1.0 [facility] Comment on above: Samples from patient [...] LIPID, FE and TIBC, ALLYSON #### [address] Bilirubin [Mass/Vol] Bilirubin.total [Mass/volume] in Serum or Plasma High 0.3-1.0 [facility] Comment on above: Samples from patient s who have taken Naproxen have shown spurious elevation in Total Bilirubin levels. A metabolite of Naproxen, O-desmethylnaproxen, has been shown to interfere with the Jendrassik-Grof method for measuring Total Bilirubin. Ceruloplasminon 02-28-2024 Ceruloplasmin 22.9 mg/dL Normal 19.0-39.0 [facility] Comment on above: Result Comment: Perf ormed at: - [facility] [address] [id number] Customer Experience Retail Clerk: Gonzales Poe PhD, Phone: [phone] PERFORMED BY: [place] [address] PATHOLOGIST RANGER AIDE SANGITA BLACK M.D. Performed By: #### H BSAG, SMAB, CERULOP, HBSAB, ALPHA PHEN, HBCAB, HCV RX PCR, NIYA CHOICE #### [facility] , #### PT, HEPATIC, CBC, LIPID, FE and TIBC, ALLYSON #### [facility] [address] [place] [address] [place] Cholesterol [Mass/volume] in Serum or PlasmaOrdered By: Wes Hadley on 02-28-2024 Cholesterol [Mass/Vol] 194 mg/dL Normal 140-200 [facility] Comment on above: Chol less than [...] PT, HEPATIC, CBC, LIPID, FE and TIBC, ALLSYON #### [facility] [address] [place] [address] [place] Cholesterol [Mass/Vol] Cholesterol [Mass /volume] in Serum or Plasma 140-200 [facility] Comment on above: Chol less than 200 m g/dl low riskChol 201-239 mg/dl borderline riskChol 240 mg/dl and greater high risk Cholesterol in HDL [Mass/vol ume] in Serum or PlasmaOrdered By: Wes Hadley on 02-28-2024 Cholesterol in HDL [Mass/Vol] Serum or plasma high density lipoprotein (HDL) cholesterol measurement 23-92 [facility] Comment on above: HDL CHOL ATP-III CLA SSIFICATION Cardiovascular RiskHDL > or equal to 60 mg/dL LOWHDL < 40 mg/dL HIGH Cholesterol in LDL Calc [Mas s/Vol]Ordered By: Wes Hadley on 02-28-2024 Cholesterol in LDL [Mass/Vol] 145 mg/dL High 0-100 [facility] Comment on above: LDL ATP III CLASSIFI CATIONLDL less than 100 mg/dL OptimalLDL 100-129 mg/dL Near or above optimalLDL 130-159 mg/dL Borderline highLDL 160-189 mg/dL HighLDL greater than 189 mg/dL Very high Cholesterol in LDL [Mass/Vol] Cholesterol in LDL [Mass/volume] in Serum or Plasma by calculation High 0-100 [facility] Comment on above: LDL ATP III CLASSIFI CATIONLDL less than 100 mg/dL OptimalLDL 100-129 mg/dL Near or above optimalLDL 130-159 mg/dL Borderline highLDL 160-189 mg/dL HighLDL greater than 189 mg/dL Very high Cholesterol in VLDL Calc [Ma ss/Vol]Ordered By: Wes Hadley on 02-28-2024 Cholesterol in VLDL [Mass/Vol] 24 mg/dL [facility] Cholesterol in VLDL [Mass/Vol] Cholesterol in VLDL [Mass/volume] in Serum or Plasma by calculation [facility] Complete Blood Count Auto Di ffon 02-28-2024 Mean Corpuscular HGB Conc 34.4 g/dL Normal 32.0-35.0 [facility] Comment on above: Performed By: #### H BSAG, SMAB, CERULOP, HBSAB, ALPHA PHEN, HBCAB, HCV RX PCR, NIYA CHOICE #### [facility] , #### PT, HEPATIC, CBC, LIPID, FE and TIBC, ALLYSON #### [facility] [address] [place] [address] NRBC% 0.1 /100{WBC} Normal 0-0.5 [facility] Comment on above: Performed By: #### H BSAG, SMAB, CERULOP, HBSAB, ALPHA PHEN, HBCAB, HCV RX PCR, NIYA CHOICE #### [facility] , #### PT, HEPATIC, CBC, LIPID, FE and TIBC, ALLYSON #### [facility] [address] Eosinophils Auto (Bld) [#/Vo l]Ordered By: Wes Hadley on 02-28-2024 Eosinophils (Bld) [#/Vol] Automated eosinophil count 0.0-0.45 [facility] Eosinophils/100 WBC Auto (Bl d)Ordered By: Wes Hadley on 02-28-2024 Eosinophils/100 WBC (Bld) Automated eosinophil % . [facility] Erythrocyte distribution wid th Auto (RBC) [Ratio]Ordered By: Wes Hadley on 02-28-2024 Erythrocyte distribution width (RBC) [Ratio] Erythrocyte distribution width [Ratio] by Automated count 11.9-15.3 [facility] Erythrocyte distribution wid th [Ratio] by Automated countOrdered By: Wes Hadley on 02-28-2024 Erythrocyte distribution width (RBC) [Ratio] 14.4 % Normal 11.9-15.3 [facility] Comment on above: Performed By: #### H BSAG, SMAB, CERULOP, HBSAB, ALPHA PHEN, HBCAB, HCV RX PCR, NIYA CHOICE #### [facility] , #### PT, HEPATIC, CBC, LIPID, FE and TIBC, ALLYSON #### [address] Erythrocytes [#/volume] in B lood by Automated countOrdered By: Wes Hadley on 02-28-2024 RBC (Bld) [#/Vol] 3.52 10*6/uL Low 3.60-5.00 [facility] Comment on above: Performed By: #### H BSAG, SMAB, CERULOP, HBSAB, ALPHA PHEN, HBCAB, HCV RX PCR, NIYA CHOICE #### [facility] , #### PT, HEPATIC, CBC, LIPID, FE and TIBC, ALLYSON #### [facility] [address] Ferritin [Mass/volume] in Se rum or PlasmaOrdered By: Wes Hadley on 02-28-2024 Ferritin [Mass/Vol] 46.0 ng/mL Normal 11.0-306.8 [facility] Comment on above: Performed By: #### H BSAG, SMAB, CERULOP, HBSAB, ALPHA PHEN, HBCAB, HCV RX PCR, NIYA CHOICE #### [facility] , #### PT, HEPATIC, CBC, LIPID, FE and TIBC, ALLYSON #### [facility] [address] Ferritin [Mass/Vol] Ferritin [Mass/volum e] in Serum or Plasma 11.0-306.8 [facility] Globulin Calc (S) [Mass/Vol] Ordered By: Wes Hadley on 02-28-2024 Globulin (S) [Mass/Vol] Serum globulin measurement by calculation (mass/volume) [facility] Hematocrit Auto (Bld) [Volum e fraction]Ordered By: Wes Hadley on 02-28-2024 Hematocrit (Bld) [Volume fraction] Hematocrit [Volume Fraction] of Blood by Automated count Low 34.0-46.4 [facility] Hematocrit [Volume Fraction] of Blood by Automated countOrdered By: Wes Hadley on 02-28-2024 Hematocrit (Bld) [Volume fraction] 33.8 % Low 34.0-46.4 [facility] Comment on above: Performed By: #### H BSAG, SMAB, CERULOP, HBSAB, ALPHA PHEN, HBCAB, HCV RX PCR, NIYA CHOICE #### [facility] , #### PT, HEPATIC, CBC, LIPID, FE and TIBC, ALLYSON #### [facility] [address] Hemoglobin [Mass/volume] in BloodOrdered By: Wes Hadley on 02-28-2024 Hemoglobin (Bld) [Mass/Vol] 11.6 g/dL Low 11.8-15.4 [facility] Comment on above: Performed By: #### H BSAG, SMAB, CERULOP, HBSAB, ALPHA PHEN, HBCAB, HCV RX PCR, NIYA CHOICE #### [facility] , #### PT, HEPATIC, CBC, LIPID, FE and TIBC, ALLYSON #### [address] Hemoglobin (Bld) [Mass/Vol] Hemoglobin [Mass/volume] in Blood Low 11.8-15.4 [facility] Hep C Ab wRfx to Qnt PCRon 0 02-28-2024 Hepatitis C Virus Antibody Non-Reactive Normal Non Reactive [facility] Comment on above: Performed By: #### H BSAG, SMAB, CERULOP, HBSAB, ALPHA PHEN, HBCAB, HCV RX PCR, NIYA CHOICE #### [facility] , #### PT, HEPATIC, CBC, LIPID, FE and TIBC, ALLYSON #### [address] Interpretation Hepatitis C Comment Normal . [facility] Comment on above: Result Comment: [...] LIPID, FE and TIBC, ALLYSON #### [address] Hepatic Panelon 02-28-2024 Albumin [Mass/Vol] 3.1 g/dL Low 3.5-5.7 [facility] Comment on above: Performed By: #### H BSAG, SMAB, CERULOP, HBSAB, ALPHA PHEN, HBCAB, HCV RX PCR, NIYA CHOICE #### [facility] , #### PT, HEPATIC, CBC, LIPID, FE and TIBC, ALLYSON #### [address] Bilirubin,Indirect 2.2 mg/dL Normal [facility] Comment on above: Performed By: #### H BSAG, SMAB, CERULOP, HBSAB, ALPHA PHEN, HBCAB, HCV RX PCR, NIYA CHOICE #### [facility] , #### PT, HEPATIC, CBC, LIPID, FE and TIBC, ALLYSON #### [facility] [address] Bilirubin.indirect [Mass/Vol] 1.40 mg/dL High 0.03-0.18 [facility] Comment on above: Performed By: #### H BSAG, SMAB, CERULOP, HBSAB, ALPHA PHEN, HBCAB, HCV RX PCR, NIYA CHOICE #### [facility] , #### PT, HEPATIC, CBC, LIPID, FE and TIBC, ALLYSON #### [facility] [address] [place] [id number] [facility] Hepatitis B Core Antibodyon 02-28-2024 Hepatitis B Core Antibody Negative Normal Negative [facility] Comment on above: Result Comment: Perf ormed at: - [facility] [address] [id number] Customer Experience Retail Clerk: Gonzales Poe PhD, Phone: [phone] Performed By: #### H BSAG, SMAB, CERULOP, HBSAB, ALPHA PHEN, HBCAB, HCV RX PCR, NIYA CHOICE #### [facility] , #### PT, HEPATIC, CBC, LIPID, FE and TIBC, ALLYSON #### [facility] [address] Hepatitis B Surface Antibody on 02-28-2024 Hepatitis B Surface Antibody Non-Reactive Normal . [facility] Comment on above: Result Comment: [...] CBC, LIPID, FE and TIBC, ALLYSON #### [facility] [address] [place] [address] [place] Hepatitis B Surface Antigeno n 02-28-2024 HBsAg Screen Negative Normal Negative [facility] Comment on above: Result Comment: PERF ORMED BY: [address] [place] [address] PATHOLOGIST RANGER AIDE SANGITA BALCK M.D. Performed By: #### H BSAG, SMAB, CERULOP, HBSAB, ALPHA PHEN, HBCAB, HCV RX PCR, NIYA CHOICE #### [facility] , #### PT, HEPATIC, CBC, LIPID, FE and TIBC, ALLYSON #### [facility] [address] Hepatitis B virus core antib [place] assayOrdered By: Wes Hadley on 02-28-2024 Hepatitis B Core Total Antibody Negative Negative [facility] Comment on above: Performed at: [employer] [facility] [employer] [address] Director: Gonzales Poe PhD, Phone: [phone] Hepatitis B virus surface Ab [Presence] in SerumOrdered By: Wes Hadley on 02-28-2024 HBV surface Ab Ql (S) Non-Reactive . [facility] Comment on above: Non Reactive: Not [...] HBV surface Ag IA Ql Negative Negative [facility] Hepatitis C virus IgG Ab [Pr esence] in Serum or Plasma by ImmunoassayOrdered By: Wes Hadley on 02-28-2024 HCV IgG IA Ql Non-Reactive Non Reactive [facility] HCV IgG IA Ql Hepatitis C virus Ig G Ab [Presence] in Serum or Plasma by Immunoassay Non Reactive [facility] INR in Platelet poor plasma by Coagulation assayOrdered By: Wes Hadley on 02-28-2024 INR Coag (PPP) [Relative time] 1.6 {INR} Normal [facility] Comment on above: INR Therapeutic Rang [...] heart valves: 3 - 4.5 PERFORMED BY: [place] [address] PATHOLOGIST RANGER AIDE SANGITA BLACK M.D. Performed By: #### H BSAG, SMAB, CERULOP, HBSAB, ALPHA PHEN, HBCAB, HCV RX PCR, NIYA CHOICE #### [facility] , #### PT, HEPATIC, CBC, LIPID, FE and TIBC, ALLYSON #### [facility] [address] [place] [address] INR Coag (PPP) [Relative time] INR in Platelet poor plasma by Coagulation assay [facility] Comment on above: INR Therapeutic Rang [...] 02-28-2024 Iron [Mass/Vol] 56 ug/dL Normal 50-212 [facility] Comment on above: Performed By: #### H BSAG, SMAB, CERULOP, HBSAB, ALPHA PHEN, HBCAB, HCV RX PCR, NIYA CHOICE #### [facility] , #### PT, HEPATIC, CBC, LIPID, FE and TIBC, ALLYSON #### [facility] [address] Iron [Mass/Vol] Iron [Mass/volume] i n Serum [place] Plasma [address] [facility] Iron and TIBC Profileon 02-18 0 % Iron Saturation 21.1 % Normal 20-50 [facility] Comment on above: Performed By: #### H BSAG, SMAB, CERULOP, HBSAB, ALPHA PHEN, HBCAB, HCV RX PCR, NIYA CHOICE #### [facility] , #### PT, HEPATIC, CBC, LIPID, FE and TIBC, ALLYSON #### [facility] [address] [place] [address] Total Iron Binding Capacity 266 ug/dL Normal 255-450 [facility] Comment on above: Performed By: #### H BSAG, SMAB, CERULOP, HBSAB, ALPHA PHEN, HBCAB, HCV RX PCR, NIYA CHOICE #### [facility] , #### PT, HEPATIC, CBC, LIPID, FE and TIBC, ALLYSON #### [address] Iron binding capacity [Mass/ volume] in Serum or PlasmaOrdered By: Wes Hadley on 02-28-2024 Iron binding capacity [Mass/Vol] 266 ug/dL 255-450 [facility] Iron saturation [Mass Fracti on] in Serum or PlasmaOrdered By: Wes Hadley on 02-28-2024 Iron saturation [Mass fraction] 21.1 % 20-50 [facility] Leukocytes [#/volume] correc anthony for nucleated erythrocytes in Blood by Automated counOrdered By: Wes Hadley on 02-28-2024 WBC corrected for nucl RBC Auto (Bld) [#/Vol] 5.8 10*3/uL 3.8-11.6 [facility] WBC corrected for nucl RBC Auto (Bld) [#/Vol] Leukocytes [#/volume] corrected for nucleated erythrocytes in Blood by Automated coun .8-.6 [facility] Leukocytes [#/volume] in Blo od by Automated countOrdered By: Wes Hadley on 02-28-2024 WBC (Bld) [#/Vol] 5.8 10*3/uL Normal 3.8-11.6 [facility] Comment on above: Performed By: #### H BSAG, SMAB, CERULOP, HBSAB, ALPHA PHEN, HBCAB, HCV RX PCR, NIYA CHOICE #### [facility] , #### PT, HEPATIC, CBC, LIPID, FE and TIBC, ALLYSON #### [facility] [address] Lipid Panelon 02-28-2024 LDL Cholesterol,Calculated 145 mg/dL High 0-100 [facility] Comment on above: Result Comment: [...] CBC, LIPID, FE and TIBC, ALLYSON #### [facility] [address] Triglyceride w/Reflex 123 mg/dL Normal 0-149 [facility] Comment on above: Result Comment: [...] CBC, LIPID, FE and TIBC, ALLYSON #### [facility] [address] VLDL CHOLESTEROL 24 mg/dL Normal [facility] Comment on above: Performed By: #### H BSAG, SMAB, CERULOP, HBSAB, ALPHA PHEN, HBCAB, HCV RX PCR, NIYA CHOICE #### [facility] , #### PT, HEPATIC, CBC, LIPID, FE and TIBC, ALLYSON #### [facility] [address] Lymphocytes Auto (Bld) [#/Vo l]Ordered By: Wes Hadley on 02-28-2024 Lymphocytes (Bld) [#/Vol] Lymphocytes [#/volume] in Blood by Automated count .00-4.8 [facility] Lymphocytes [#/volume] in Bl ood by Automated countOrdered By: Wes Hadley on 02-28-2024 Lymphocytes (Bld) [#/Vol] 1.1 10*3/uL Normal .00-4.8 [facility] Comment on above: Performed By: #### H BSAG, SMAB, CERULOP, HBSAB, ALPHA PHEN, HBCAB, HCV RX PCR, NIYA CHOICE #### [facility] , #### PT, HEPATIC, CBC, LIPID, FE and TIBC, ALLYSON #### [facility] [address] Lymphocytes/100 WBC Auto (Bl d)Ordered By: Wes Hadley on 02-28-2024 Lymphocytes/100 WBC (Bld) Lymphocytes/100 leukocytes in Blood by Automated count . [facility] Lymphocytes/100 leukocytes i n Blood by Automated countOrdered By: Wes Hadley on 02-28-2024 Lymphocytes/100 WBC (Bld) 19.4 % Normal . [facility] Comment on above: Performed By: #### H BSAG, SMAB, CERULOP, HBSAB, ALPHA PHEN, HBCAB, HCV RX PCR, NIYA CHOICE #### [facility] , #### PT, HEPATIC, CBC, LIPID, FE and TIBC, ALLYSON #### [facility] [address] MCH Auto (RBC) [Entitic mass ]Ordered By: Wes Hadley on 02-28-2024 MCH (RBC) [Entitic mass] MCH [Entitic mass] by Automated count 24.7-34.3 [facility] MCH [Entitic mass] by Automa anthony countOrdered By: Wes Hadley on 02-28-2024 MCH (RBC) [Entitic mass] 33.1 pg Normal 24.7-34.3 [facility] Comment on above: Performed By: #### H BSAG, SMAB, CERULOP, HBSAB, ALPHA PHEN, HBCAB, HCV RX PCR, NIYA CHOICE #### [facility] , #### PT, HEPATIC, CBC, LIPID, FE and TIBC, ALLYSON #### [address] MCHC Auto (RBC) [Mass/Vol]Or dered By: Wes Hadley on 02-28-2024 MCHC (RBC) [Mass/Vol] 34.4 g/dL 32.0-35.0 [facility] MCHC (RBC) [Mass/Vol] MCHC [Mass/volume] by Automated count 32.0-35.0 [facility] MCV Auto (RBC) [Entitic vol] Ordered By: Wes Hadley on 02-28-2024 MCV (RBC) [Entitic vol] MCV [Entitic volume] by Automated count 80-100 [facility] MCV [Entitic volume] by Auto mated countOrdered By: Wes Hadley on 02-28-2024 MCV (RBC) [Entitic vol] 96.0 fL Normal 80-100 [facility] Comment on above: Performed By: #### H BSAG, SMAB, CERULOP, HBSAB, ALPHA PHEN, HBCAB, HCV RX PCR, NIYA CHOICE #### [facility] , #### PT, HEPATIC, CBC, LIPID, FE and TIBC, ALLYSON #### [facility] [address] [place] [address] [place] Monocytes Auto (Bld) [#/Vol] Ordered By: Wes Hadley on 02-28-2024 Monocytes (Bld) [#/Vol] Automated blood monocyte count 0.0-0.8 [facility] Monocytes/100 WBC Auto (Bld) Ordered By: Wes Hadley on 02-28-2024 Monocytes/100 WBC (Bld) Automated monocyte % . [facility] Neutrophils Auto (Bld) [#/Vo l]Ordered By: Wes Hadley on 02-28-2024 Neutrophils (Bld) [#/Vol] Neutrophils [#/volume] in Blood by Automated count 1.8-7.7 [facility] Neutrophils [#/volume] in Bl ood by Automated countOrdered By: Wes Hadley on 02-28-2024 Neutrophils (Bld) [#/Vol] 3.9 10*3/uL Normal 1.8-7.7 [facility] Comment on above: Performed By: #### H BSAG, SMAB, CERULOP, HBSAB, ALPHA PHEN, HBCAB, HCV RX PCR, NIYA CHOICE #### [facility] , #### PT, HEPATIC, CBC, LIPID, FE and TIBC, ALLYSON #### [facility] [address] [place] [address] [place] Neutrophils/100 WBC Auto (Bl d)Ordered By: Wes Hadley on 02-28-2024 Neutrophils/100 WBC (Bld) Automated neutrophil % . [facility] No Panel InformationOrdered By: Wes Hadley on 02-28-2024 Hepatitis C Interpretation Comment . [facility] Comment on above: Not infected with HC V unless early or acute infection issuspected (which may be delayed in an immunocompromisedindividual), or other evidence exists to indicate HCVinfection. Nucleated erythrocytes [Pres ence] in Blood by Automated countOrdered By: Wes Hadley on 02-28-2024 Nucleated RBC Auto Ql (Bld) 0.1 /100{WBC} 0-0.5 [facility] Nucleated RBC Auto Ql (Bld) Nucleated erythrocytes [Presence] in Blood by Automated count 0-0.5 [facility] Platelet mean volume Auto (B ld) [Entitic vol]Ordered By: Wes Hadley on 02-28-2024 Platelet mean volume (Bld) [Entitic vol] Platelet mean volume [Entitic volume] in Blood by Automated count 6.3-10.7 [facility] Platelet mean volume [Entiti c volume] in Blood by Automated countOrdered By: Wes Hadley on 02-28-2024 Platelet mean volume (Bld) [Entitic vol] 7.8 fL Normal 6.3-10.7 [facility] Comment on above: Performed By: #### H BSAG, SMAB, CERULOP, HBSAB, ALPHA PHEN, HBCAB, HCV RX PCR, NIYA CHOICE #### [facility] , #### PT, HEPATIC, CBC, LIPID, FE and TIBC, ALLYSON #### [facility] [address] [place] [address] [place] Platelets Auto (Bld) [#/Vol] Ordered By: Wes Hadley on 02-28-2024 Platelets (Bld) [#/Vol] Platelets [#/volume] in Blood by Automated count 150-450 [facility] Platelets [#/volume] in Bloo d by Automated countOrdered By: Wes Hadley on 02-28-2024 Platelets (Bld) [#/Vol] 205 10*3/uL Normal 150-450 [facility] Comment on above: Performed By: #### H BSAG, SMAB, CERULOP, HBSAB, ALPHA PHEN, HBCAB, HCV RX PCR, NIYA CHOICE #### [facility] , #### PT, HEPATIC, CBC, LIPID, FE and TIBC, ALLYSON #### [facility] [address] [place] [address] [place] Protein [Mass/volume] in Ser um or PlasmaOrdered By: Wes Hadley on 02-28-2024 Protein [Mass/Vol] 6.8 g/dL Normal 6.4-8.9 [facility] Comment on above: Performed By: #### H BSAG, SMAB, CERULOP, HBSAB, ALPHA PHEN, HBCAB, HCV RX PCR, NIYA CHOICE #### [facility] , #### PT, HEPATIC, CBC, LIPID, FE and TIBC, ALLYSON #### [facility] [address] Protein [Mass/Vol] Protein [Mass/volume ] in Serum or Plasma 6.4-8.9 [facility] Prothrombin time (PT)Ordered By: Wes Hadley on 02-28-2024 PT Coag (PPP) [Time] 18.5 s High 9.0-12.9 [facility] Comment on above: A hematocrit value g reater than 55% may lead to inaccurate results in coagulation testing. Patients having hematocrit values >55% require a special collection tube for coagulation studies. Please contact the laboratory at [phone] for redraw instructions. Result Comment: A he matocrit value greater than 55% may lead to inaccurate results in coagulation testing. Patients having hematocrit values >55% require a special collection tube for coagulation studies. Please contact the laboratory at [phone] for redraw instructions. Performed By: #### H BSAG, SMAB, CERULOP, HBSAB, ALPHA PHEN, HBCAB, HCV RX PCR, NIYA CHOICE #### [facility] , #### PT, HEPATIC, CBC, LIPID, FE and TIBC, ALLYSON #### [facility] [address] [place] [id number] [place] PT Coag (PPP) [Time] Prothrombin time (PT) High 9.0- 12.9 [facility] Comment on above: A hematocrit value g reater than 55% may lead to inaccurate results in coagulation testing. Patients having hematocrit values >55% require a special collection tube for coagulation studies. Please contact the laboratory at [phone] for redraw instructions. RBC Auto (Bld) [#/Vol]Ordere d By: Wes Hadley on 02-28-2024 RBC (Bld) [#/Vol] Erythrocytes [#/volu me] in Blood by Automated count Low 3.60-5.00 [facility] Serum vgyzp-6-[id number] me asurementOrdered By: Wes Hadley on 02-28-2024 Alpha 1 antitrypsin [Mass/Vol] 233 mg/dL High 101-187 [facility] Serum globulin measurement b y calculation (mass/volume)Ordered By: Wes Hadley on 02-28-2024 Globulin (S) [Mass/Vol] 3.7 g/dL Normal [facility] Comment on above: Performed By: #### H BSAG, SMAB, CERULOP, HBSAB, ALPHA PHEN, HBCAB, HCV RX PCR, NIYA CHOICE #### [facility] , #### PT, HEPATIC, CBC, LIPID, FE and TIBC, ALLYSON #### [facility] [address] Serum hepatitis B virus surf shiv antibody detectionOrdered By: Wes Hadley on 02-28-2024 HBV surface Ab Ql (S) Hepatitis B virus surface Ab [Presence] in Serum . [facility] Comment on above: Non Reactive: Not im mune to HBV infection. Equivocal: Unable to determine if anti-HBs is present at levels consistent with immunity. Reactive: Anti-HBs concentration detected at greater than 10 mIU/mL. Individual is considered to be immune to infection with HBV. Serum or plasma albumin/glob ulin mass ratioOrdered By: Wes Hadley on 02-28-2024 Albumin/Globulin [Mass ratio] 0.8 {ratio} [facility] Comment on above: Performed By: #### H BSAG, SMAB, CERULOP, HBSAB, ALPHA PHEN, HBCAB, HCV RX PCR, NIYA CHOICE #### [facility] , #### PT, HEPATIC, CBC, LIPID, FE and TIBC, ALLYSON #### [facility] [address] [place] [id number] [facility] Albumin/Globulin [Mass ratio] Serum or plasma albumin/globulin mass ratio [facility] Serum or plasma alpha 1 anti trypsin measurement (mass/volume)Ordered By: Wes Hadley on 02-28-2024 Alpha 1 antitrypsin [Mass/Vol] Serum jcuqk-6-fnfrtgbwivk measurement High 101-187 [facility] Serum or plasma alpha 1 anti trypsin phenotyping identification by immunofixationOrdered By: Wes Hadley on 02-28-2024 Alpha 1 antitrypsin phenotyping Immunofixation Nom Mm . [facility] Comment on above: MM Phenotype is co nsidered to be normal , producingnormal serum levels of lezhn-4-abwfsdcn inhibitor andnot associated with clinical disease. Associated B9Hdemad serum levels in other phenotypes and theirincidence [...] reference. Ranges used to confirm phenotype.Performed at: - [address] [id number] Director: Gonzales Poe PhD, Phone: [phone] at: [facility] [id number] Director: Ankita Ruelas MD, Phone: [phone] Alpha 1 antitrypsin phenotyping Immunofixation Nom Serum or plasma alpha 1 antitrypsin phenotyping identification by immunofixation . [facility] Comment on above: MM Phenotype is co nsidered to be normal , producingnormal serum levels of ylneg-6-khasertj inhibitor andnot associated with clinical disease. Associated R4Oejuww serum levels in other phenotypes and theirincidence [...] reference. Ranges used to confirm phenotype.Performed at: [facility] [id number] Director: Gonzales Poe PhD, Phone: [phone] at: [facility] [address] [id number] Director: Ankita Ruelas MD, Phone: [phone] Serum or plasma ceruloplasmi n measurement (mass/volume)Ordered By: Wes Hadley on 02-28-2024 Ceruloplasmin [Mass/Vol] 22.9 mg/dL 19.0-39.0 [facility] Comment on above: Performed at: [employer] [address] [id number] Director: Gonzales Poe PhD, Phone: [phone] Ceruloplasmin [Mass/Vol] Serum or plasma ceruloplasmin measurement (mass/volume) 19.0-39.0 [facility] Comment on above: Performed at: [employer] [facility] [employer] [address] [place] [id number] Director: Gonzales Poe PhD, Phone: [phone] Serum or plasma free cefurox nilam measurement (mass/volume)Ordered By: Wes Hadley on 02-28-2024 Cefuroxime free [Mass/Vol] Negative Negative [facility] Comment on above: Performed at: [facility] [place], [place] [id number] Director: Gonzales Poe PhD, Phone: [phone] Cefuroxime free [Mass/Vol] Serum or plasma free cefuroxime measurement (mass/volume) Negative [facility] Comment on above: Performed at: [facility] [place] [id number] Director: Gonzales Poe PhD, Phone: [phone] Serum or plasma hepatitis B virus surface antigen detection by immunoassayOrdered By: Wes Hadley on 02-28-2024 HBV surface Ag IA Ql Hepatitis B virus s urface Ag [Presence] in Serum or Plasma by Immunoassay Negative [facility] Serum or plasma high density lipoprotein (HDL) cholesterol measurementOrdered By: Wes Hadley on 02-28-2024 Cholesterol in HDL [Mass/Vol] 24 mg/dL Normal 23-92 [facility] Comment on above: HDL CHOL ATP-III CLA SSIFICATION Cardiovascular RiskHDL > or equal to 60 mg/dL LOWHDL < 40 mg/dL HIGH Result Comment: HDL CHOL ATP-III CLASSIFICATION Cardiovascular Risk HDL > or equal to 60 mg/dL LOW HDL < 40 mg/dL HIGH Performed By: #### H BSAG, SMAB, CERULOP, HBSAB, ALPHA PHEN, HBCAB, HCV RX PCR, NIAY CHOICE #### [facility] , #### PT, HEPATIC, CBC, LIPID, FE and TIBC, ALLYSON #### [facility] [address] Serum or plasma iron binding capacity measurement (mass/volume)Ordered By: Wes Hadley on 02-28-2024 Iron binding capacity [Mass/Vol] Iron binding capacity [Mass/volume] in Serum or Plasma 255-450 [facility] Serum or plasma iron saturat ion measurement (mass fraction)Ordered By: Wes Hadley on 02-28-2024 Iron saturation [Mass fraction] Iron saturation [Mass Fraction] in Serum or Plasma 20-50 [facility] Serum or plasma non-glucuron idated bilirubin measurement (mass/volume)Ordered By: Wes Hadley on 02-28-2024 Bilirubin.indirect [Mass/Vol] 2.2 mg/dL [facility] Bilirubin.indirect [Mass/Vol] Serum or plasma non-glucuronidated bilirubin measurement (mass/volume) [facility] Serum or plasma total choles terol/high density lipoprotein (HDL) cholesterol mass ratOrdered By: Wes Hadley on 02-28-2024 Cholesterol.total/Chol esterol in HDL [Mass ratio] 8.1 {ratio} Normal <5.0 [facility] Comment on above: Result Comment: PERF ORMED BY: [place] [address] PATHOLOGIST RANGER AIDE SANGITA BLACK M.D. Performed By: #### H BSAG, SMAB, CERULOP, HBSAB, ALPHA PHEN, HBCAB, HCV RX PCR, NIYA CHOICE #### [facility] , #### PT, HEPATIC, CBC, LIPID, FE and TIBC, ALLYSON #### [facility] [address] [place] [address] Cholesterol.total/Chol esterol in HDL [Mass ratio] Serum or plasma total cholesterol/high density lipoprotein (HDL) cholesterol mass rat <5.0 [facility] Smooth Muscle Antibodyon Smooth Muscle Antibody 18 Normal 0-19 Th e [facility] Comment on above: Result Comment: Nega tive 0 - 19 Weak positive 20 - 30 Moderate to strong positive >30 Actin Antibodies are found in 52-85% of patients with autoimmune hepatitis or chronic active hepatitis and in 22% of patients with primary biliary cirrhosis. Performed at: [facility] [id number] Customer Experience Retail Clerk: Gonzales Poe PhD, Phone: [phone] PERFORMED BY: [place] [address] PATHOLOGIST RANGER AIDE SANGITA BLACK M.D. Performed By: #### H BSAG, SMAB, CERULOP, HBSAB, ALPHA PHEN, HBCAB, HCV RX PCR, NIYA CHOICE #### [facility] , #### PT, HEPATIC, CBC, LIPID, FE and TIBC, ALLYSON #### [facility] [address] [place] [address] [place] Transferrin [Mass/volume] in Serum or PlasmaOrdered By: Wes Hadley on 02-28-2024 Transferrin [Mass/Vol] 190 mg/dL Low 203-362 [facility] Comment on above: Performed By: #### H BSAG, SMAB, CERULOP, HBSAB, ALPHA PHEN, HBCAB, HCV RX PCR, NIYA CHOICE #### [facility] , #### PT, HEPATIC, CBC, LIPID, FE and TIBC, ALLYSON #### [facility] [address] Transferrin [Mass/Vol] Transferrin [Mass /volume] in Serum or Plasma Low 203-362 [facility] Triglyceride [Mass/volume] i n Serum or PlasmaOrdered By: Wes Hadley on 02-28-2024 Triglyceride [Mass/Vol] 123 mg/dL 0-149 [facility] Comment on above: TRIG ATP III CLASSIF ICATIONTRIG less than 150 mg/dL NormalTRIG 150-199 mg/dL Borderline highTRIG 200-500 mg/dL High TRIG greater than 500 mg/dL Very highStandard traceable to the Center for Disease Conrtrol and Prevention (CDC) test method. Triglyceride [Mass/Vol] Triglyceride [Mass/volume] in Serum or Plasma 0-149 [facility] Comment on above: TRIG ATP III CLASSIF ICATIONTRIG less than 150 mg/dL NormalTRIG 150-199 mg/dL Borderline highTRIG 200-500 mg/dL High TRIG greater than 500 mg/dL Very highStandard traceable to the Center for Disease Conrtrol and Prevention (CDC) test method. WBC Auto (Bld) [#/Vol]Ordere d By: Wes Hadley on 02-28-2024 WBC (Bld) [#/Vol] Leukocytes [#/volume ] in Blood by Automated count 3.8-11.6 [facility] Documentationon 01-19-2024 Documentation [id number] Jose Alejandro Bhakta 1965 F Date Provider Department Center 01/19/2024 [facility]AREN CHUNG [facility] [place] [facility] Family History Family history unknown: Yes Normal [facility] MG MAMM SCREEN 3D ALEX CADon 08-02-2022 MG MAMM SCREEN 3D ALEX CAD Patient: MADYSON BHAKTAIDI VargheseDonn Exam Date: 08/02/2022 : 1965 Gender:F Ordering : DR BRYSON RODRIGUEZ M.D. Admission #: [id number] Family : Order #: [id number] CLICK HERE TO VIEW EXAM RADIOLOGY REPORT [...] Treatments None Family Cancers None LOCATION: [facility] BREAST COMPOSITION: Extremely dense, which lowers [...] MD on 08/02/2022 at 11:32 Approved by: Jni Burleson MD on 08/02/2022 at 11:36 Normal [facility] FEMUR RIGHT 2 VWSon 02-12-20 22 FEMUR RIGHT 2 S [facility] Department of Radiology [address] [place] [id number] Patient Name: BERNADINE BHAKTA : 1965 [...] report. Electronically signed: Cherie Coronel. Transcribed by: [email or web address], User Resident: PHILIP ARMANDO Electronically Signed by: CHERIE CORONEL @ 02/12/2022 03:34 PM I personally read this/these film(s) with this resident Normal [facility] Comment on above: Order Comment: Yes: Add to Previous draw if able FEMUR RIGHT 2 VWSon 01-22-20 22 FEMUR RIGHT 2 VWS [facility] Department of Radiology [address] [place] [phone] Patient Name: BERNADINE BHAKTA : 1965 Sex: F Age: Race: White Pt. Location: 84 Patient Status: O Ordered Date: 01/21/2022 8:45:00 [...] above. Electronically signed: Joe Rueda. Transcribed by: [email or web address], User Resident: Electronically Signed by: JOE RUEDA @ 01/21/2022 09:27 AM Normal [facility] Comment on above: Order Comment: No: D o not add to previous draw BASIC METABOLIC PANELon 07-2 Calcium [Mass/Vol] 8.8 mg/dL Normal 8.6-10.3 [facility] Comment on above: Order Comment: Yes: Add to Previous draw if able Performed By: #### 0 0071 #### [facility] [address] [place] [place] [address], [facility] Chloride [Moles/Vol] 99 mmol/L Normal 98-107 [facility] Comment on above: Order Comment: Yes: Add to Previous draw if able Performed By: #### 0 0071 #### [facility] [address] [place] [address], [place] CO2 [Moles/Vol] 23 mmol/L Normal 21-31 [facility] Comment on above: Order Comment: Yes: Add to Previous draw if able Performed By: #### 0 0071 #### [facility] [address] [place] [address], [place] Creatinine [Mass/Vol] 0.81 mg/dL Normal 0.60-1.20 [facility] Comment on above: Order Comment: Yes: Add to Previous draw if able Performed By: #### 0 0071 #### [facility] [address] [place] [address], [place] GFR/1.73 sq M.predicted among blacks MDRD (S/P/Bld) [Vol rate/Area] mL/min/{1.73_m2} Normal >60 [facility] Comment on above: Order Comment: Yes: Add to Previous draw if able Performed By: #### 0 0071 #### [facility] [address] [place] [address], [place] GFR/1.73 sq M.predicted among non-blacks MDRD (S/P/Bld) [Vol rate/Area] mL/min/{1.73_m2} Normal >60 [facility] Comment on above: Order Comment: Yes: Add to Previous draw if able Performed By: #### 0 0071 #### [facility] [address] [place] [address], [place] Glucose [Mass/Vol] 155 mg/dL High 70-100 [facility] Comment on above: Order Comment: Yes: Add to Previous draw if able Performed By: #### 0 0071 #### [facility] [address] [place] [address], [place] Potassium [Moles/Vol] 3.6 mmol/L Normal 3.5-5.1 [facility] Comment on above: Order Comment: Yes: Add to Previous draw if able Performed By: #### 0 0071 #### [facility] [address] [place] [address], [facility] Sodium [Moles/Vol] 134 mmol/L Low 136-145 [facility] Comment on above: Order Comment: Yes: Add to Previous draw if able Performed By: #### 0 0071 #### [facility] [address] [place] [address], [facility] Urea nitrogen [Mass/Vol] 7 mg/dL Normal 7-25 The [facility] Comment on above: Order Comment: Yes: Add to Previous draw if able Performed By: #### 0 0071 #### [facility] [address] [place] [address], [facility] POC GLUCOSE LABon 01-09-2022 Glucose [Mass/Vol] 105 mg/dL High 70-100 The [facility] Comment on above: Performed By: #### 0 0071 #### [facility] [address] [place] [address], [facility] Glucose [Mass/Vol] 165 mg/dL High 70-100 [facility] Comment on above: Performed By: #### 0 0071 #### [facility] [address] [place] [address], [facility] BASIC METABOLIC PANELon 07-2 Calcium [Mass/Vol] 9.3 mg/dL Normal 8.6-10.3 The [facility] Comment on above: Order Comment: Unkno wn Performed By: #### 0 0071 #### [facility] [address] [place] [address], [facility] Chloride [Moles/Vol] 98 mmol/L Normal 98-107 [facility] Comment on above: Order Comment: Unkno wn Performed By: #### 0 0071 #### [facility] [address] [place] [address], [facility] CO2 [Moles/Vol] 26 mmol/L Normal 21-31 [facility] Comment on above: Order Comment: Unkno wn Performed By: #### 0 0071 #### [facility] [address] [place] [address], [place] Creatinine [Mass/Vol] 0.60 mg/dL Normal 0.60-1.20 [facility] Comment on above: Order Comment: Unkno wn Performed By: #### 0 0071 #### [facility] [address] [place] [address], [place] GFR/1.73 sq M.predicted among blacks MDRD (S/P/Bld) [Vol rate/Area] mL/min/{1.73_m2} Normal >60 [facility] Comment on above: Order Comment: Unkno wn Performed By: #### 0 0071 #### [facility] [address] [place] [address], [place] GFR/1.73 sq M.predicted among non-blacks MDRD (S/P/Bld) [Vol rate/Area] mL/min/{1.73_m2} Normal >60 The [facility] Comment on above: Order Comment: Unkno wn Performed By: #### 0 0071 #### [facility] [address] [place] [address], [place] Glucose [Mass/Vol] 124 mg/dL High 70-100 [facility] Comment on above: Order Comment: Unkno wn Performed By: #### 0 0071 #### [facility] [address] [place] [address], [place] Potassium [Moles/Vol] 4.4 mmol/L Normal 3.5-5.1 [facility] Comment on above: Order Comment: Unkno wn Performed By: #### 0 0071 #### [facility] [address] [place] [address], [place] Sodium [Moles/Vol] 133 mmol/L Low 136-145 [facility] Comment on above: Order Comment: Unkno wn Performed By: #### 0 0071 #### [facility] [address] [place] [address], [facility] Urea nitrogen [Mass/Vol] 5 mg/dL Low 7-25 The [facility] Comment on above: Order Comment: Unkno wn Performed By: #### 0 0071 #### [facility] [address] CBC COMPLETE BLOOD COUNTon 0 01-08-2022 Erythrocyte distribution width (RBC) [Ratio] 13.1 % Normal 11.5-15.0 [facility] Comment on above: Order Comment: No: D o not add to previous draw Performed By: #### 0 0071 #### [facility] [address] [facility] Hematocrit (Bld) [Volume fraction] 35.9 % Low 36.0-45.0 [facility] Comment on above: Order Comment: No: D o not add to previous draw Performed By: #### 0 0071 #### [facility] [address] [facility] [address], [facility] Hemoglobin (Bld) [Mass/Vol] 11.9 g/dL Low 12.0-15.0 [facility] Comment on above: Order Comment: No: D o not add to previous draw Performed By: #### 0 0071 #### [facility] [address] [place] [address], [facility] MCH (RBC) [Entitic mass] 34.2 pg High 27.0-33.0 The [facility] Comment on above: Order Comment: No: D o not add to previous draw Performed By: #### 0 0071 #### [facility] [address] [place] [address], [facility] MCHC (RBC) [Mass/Vol] 33.1 g/dL Normal 32.0-35.0 The [facility] Comment on above: Order Comment: No: D o not add to previous draw Performed By: #### 0 0071 #### [facility] [address] [place] [address], [facility] MCV (RBC) [Entitic vol] 103.2 fL High 82.0-98.0 The [facility] Comment on above: Order Comment: No: D o not add to previous draw Performed By: #### 0 0071 #### [facility] [address] [place] [address], [facility] Nucleated RBC/100 WBC (Bld) [Ratio] 0 % Normal 0-0 The [facility] Comment on above: Order Comment: No: D o not add to previous draw Performed By: #### 0 0071 #### [facility] [address] [place] [place] [address], [facility] PLAT CNT 175 10*3/uL Normal 150-400 [facility] Comment on above: Order Comment: No: D o not add to previous draw Performed By: #### 0 0071 #### [facility] [address] [place] [place] [address], [facility] RBC (Bld) [#/Vol] 3.48 10*6/uL Low 3.80-5.00 [facility] Comment on above: Order Comment: No: D o not add to previous draw Performed By: #### 0 0071 #### [facility] [address] [facility] [place] [address], [facility] WBC (Bld) [#/Vol] 8.17 10*3/uL Normal 4.00-10.60 [facility] Comment on above: Order Comment: No: D o not add to previous draw Performed By: #### 0 0071 #### [facility] [address] [place] [address], [facility] FEMUR RIGHT 2 VWSon 01-09-20 22 FEMUR RIGHT 2 VWS [facility] Department of Radiology [address] [place] [id number] Patient Name: BERNADINE BHAKTA : 1965 Sex: F Age: Race: White Pt. Location: [id number] Patient Status: I Ordered Date: 01/08/2022 1:30:00 PM Completed Date: 01/08/2022 12:36 PM Requesting Provider: BECK DELACRUZ Attending Provider: BECK DELACRUZ Report Copy To: Signs & Symptoms: ORIF RIGHT DISTAL FEMUR History: Comments: ORIF RIGHT DISTAL FEMUR Exam: FEMUR RIGHT 2 S FEMUR RIGHT 2 S 01/08/2022 12:36 PM CLINICAL INDICATIONS: ORIF RIGHT [...] submitted Electronically signed: Kat Newton. Transcribed by: [email or web address], User Resident: Electronically Signed by: KAT NEWTON @ 01/08/2022 01:03 PM Normal [facility] Comment on above: Order Comment: No: D o not add to previous draw Operative Reporton Operative Report MR#: [id number] I [facility] Pt. Name: Bernadine Bhakta Room #: [id number] Discharge Date: Birthdate: 1965 OPERATIVE REPORT DATE [...] fracture after a fall. She presented to [facility] Emergency Department, where x-rays were obtained [...] DVT (more content not included)... Normal [facility] POC GLUCOSE LABon 01-08-2022 Glucose [Mass/Vol] 141 mg/dL High 70-100 [facility] Comment on above: Performed By: #### 3 1400, 86038, 25759 #### [facility] [address] [place] [address], [facility] Glucose [Mass/Vol] 227 mg/dL High 70-100 [facility] Comment on above: Performed By: #### 3 1400, 58432, 48740 #### [facility] [address] [place] [address], [facility] Glucose [Mass/Vol] 158 mg/dL High 70-100 [facility] Comment on above: Performed By: #### 3 1400, 63505, 83126 #### [facility] [address] *MRSA/MSSA DNA NASALon 01-07 *MRSA/MSSA DNA NASAL Clinical Report: (D ) Specimen/Source: NASAL SWAB/NARES Collected: 01/07/2022 07:45 Status: Final Last Updated: 01/08/2022 20:33 MSSA DNA (Final) Methicillin Susceptible Staphylococcus aureus DNA Detected MRSA DNA (Final) Negative Normal The [facility] Comment on above: Performed By: #### 3 1400, 99181, 80091 #### [facility] [address] [place] [address], [facility] APTTon 01-07-2022 aPTT Coag (Bld) [Time] 35.6 s High 25.0-35.0 Th e [facility] Comment on above: Result Comment: ALL RESULTS [...] THIS PURPOSE. Performed By: #### 3 1400, 02407, 81670 #### [facility] [address] [place] [address], [place] BASIC METABOLIC PANELon 07-2 Calcium [Mass/Vol] 9.2 mg/dL Normal 8.6-10.3 [facility] Comment on above: Order Comment: No: D o not add to previous draw Performed By: #### 0 0071 #### [facility] [address] [place] [address], [place] Chloride [Moles/Vol] 98 mmol/L Normal 98-107 [facility] Comment on above: Order Comment: No: D o not add to previous draw Performed By: #### 0 0071 #### [facility] [address] [place] [address], [place] CO2 [Moles/Vol] 24 mmol/L Normal 21-31 [facility] Comment on above: Order Comment: No: D o not add to previous draw Performed By: #### 0 0071 #### [facility] [address] [place] [address], [place] Creatinine [Mass/Vol] 0.57 mg/dL Low 0.60-1.20 [facility] Comment on above: Order Comment: No: D o not add to previous draw Performed By: #### 0 0071 #### [facility] [address] [place] [address], [place] GFR/1.73 sq M.predicted among blacks MDRD (S/P/Bld) [Vol rate/Area] mL/min/{1.73_m2} Normal >60 The [facility] Comment on above: Order Comment: No: D o not add to previous draw Performed By: #### 0 0071 #### [facility] [address] [place] [address], [place] GFR/1.73 sq M.predicted among non-blacks MDRD (S/P/Bld) [Vol rate/Area] mL/min/{1.73_m2} Normal >60 The [facility] Comment on above: Order Comment: No: D o not add to previous draw Performed By: #### 0 0071 #### [facility] [address] [place] [address], [facility] Glucose [Mass/Vol] 146 mg/dL High 70-100 The [facility] Comment on above: Order Comment: No: D o not add to previous draw Performed By: #### 0 0071 #### [facility] [address] [place] [address], [facility] Potassium [Moles/Vol] 4.5 mmol/L Normal 3.5-5.1 [facility] Comment on above: Order Comment: No: D o not add to previous draw Performed By: #### 0 0071 #### [facility] [address] [address], [facility] Sodium [Moles/Vol] 133 mmol/L Low 136-145 The [facility] Comment on above: Order Comment: No: D o not add to previous draw Performed By: #### 0 0071 #### [facility] [address] [facility] [place] [address], [facility] Urea nitrogen [Mass/Vol] 5 mg/dL Low 7-25 The [facility] Comment on above: Order Comment: No: D o not add to previous draw Performed By: #### 0 0071 #### [facility] [address] [place] [address], [facility] CBC W/DIFFon 01-07-2022 ABS IMM GRANS 0.0 10*3/uL Normal 0.0-0.2 The [facility] Comment on above: Performed By: #### 3 1400, 41837, 12627 #### [facility] [address] [facility] [address], [facility] ABS NEUTROPHILS 4.5 10*3/uL Normal 1.6-7.6 The [facility] Comment on above: Performed By: #### 3 1400, , 96416 #### [facility] [address] [place] [address], [place] Basophils (Bld) [#/Vol] 0.0 10*3/uL Normal 0.0-0.2 The [facility] Comment on above: Performed By: #### 3 1399, , 46159 #### [facility] [address] [place] [address], [place] Basophils/100 WBC (Bld) 0.7 % Normal 0.0-1.0 [facility] Comment on above: Performed By: #### 3 1399, , 38223 #### [facility] [address] [place] [address], [place] Eosinophils (Bld) [#/Vol] 0.0 10*3/uL Normal 0.0-0.5 The [facility] Comment on above: Performed By: #### 3 1399, , 51280 #### [facility] [address] [place] [address], [place] Eosinophils/100 WBC (Bld) 0.3 % Normal 0.0-6.0 The [facility] Comment on above: Performed By: #### 3 1399, , 15604 #### [facility] [address] [place] [address], [place] Erythrocyte distribution width (RBC) [Ratio] 13.2 % Normal 11.5-15.0 The [facility] Comment on above: Performed By: #### 3 1399, , 31481 #### [facility] [address] [place] [address], [place] Hematocrit (Bld) [Volume fraction] 37.8 % Normal 36.0-45.0 [facility] Comment on above: Performed By: #### 3 1399, , 34314 #### [facility] [address] [place] [address], [place] Hemoglobin (Bld) [Mass/Vol] 13.0 g/dL Normal 12.0-15.0 [facility] Comment on above: Performed By: #### 3 1399, , 34187 #### [facility] [address] IMMATURE GRANS 0.5 % Normal 0.0-1.0 [facility] Comment on above: Performed By: #### 3 1399, , 24718 #### [facility] [address] Lymphocytes (Bld) [#/Vol] 1.0 10*3/uL Low 1.2-4.0 [facility] Comment on above: Performed By: #### 3 1399, , 43693 #### [facility] [address] Lymphocytes/100 WBC (Bld) 16.8 % Low 20.0-45.0 [facility] Comment on above: Performed By: #### 3 1399, , 93486 #### [facility] [address] MCH (RBC) [Entitic mass] 34.2 pg High 27.0-33.0 [facility] Comment on above: Performed By: #### 3 1399, , 04962 #### [facility] [address] MCHC (RBC) [Mass/Vol] 34.4 g/dL Normal 32.0-35.0 [facility] Comment on above: Performed By: #### 3 1399, , 64690 #### [facility] [address] [place] [address], [facility] MCV (RBC) [Entitic vol] 99.5 fL High 82.0-98.0 [facility] Comment on above: Performed By: #### 3 1399, , 72672 #### [facility] [address] [facility] [place] [address], [facility] Monocytes (Bld) [#/Vol] 0.3 10*3/uL Normal 0.1-1.0 [facility] Comment on above: Performed By: #### 3 1400, 49396, 30787 #### [facility] [address] [place] [place] [address], [facility] MONOS 4.7 % Low 5.0-12.0 [facility] [place] Comment on above: Performed By: #### 3 1400, 45161, 62986 #### [facility] [address] [place] [place] [address], [facility] Neutrophils/100 WBC (Bld) 77.0 % High 40.0-72.0 [facility] [place] Comment on above: Performed By: #### 3 1400, 18654, 05071 #### [facility] [address] [place] [place] [address], [facility] Nucleated RBC/100 WBC (Bld) [Ratio] 0 % Normal 0-0 [facility] [place] Comment on above: Performed By: #### 3 1400, 54230, 18787 #### [facility] [address] [place] [place] [address], [facility] PLAT CNT 177 10*3/uL Normal 150-400 [facility] [place] Comment on above: Performed By: #### 3 1400, 84379, 64247 #### [facility] [address] [place] [place] [address], [facility] RBC (Bld) [#/Vol] 3.80 10*6/uL Normal 3.80-5.00 [facility] [place] Comment on above: Performed By: #### 3 1400, 49694, 38456 #### [facility] [address] [place] [place] [address], [facility] WBC (Bld) [#/Vol] 5.90 10*3/uL Normal 4.00-10.60 [facility] [place] Comment on above: Performed By: #### 3 1400, 94394, 13703 #### [facility] [address] [place] [address], [facility] COMP METABOLIC PANELon 01-07 Albumin [Mass/Vol] 3.8 g/dL Normal 3.5-5.7 [facility] [place] Comment on above: Performed By: #### 0 0121, 75115, 97179 #### [facility] [address] [place] [address], [facility] ALKALINE PHOSPH 108 IU/L High 34-104 [facility] [place] Comment on above: Performed By: #### 0 0121, 85854, 54409 #### [facility] [address] [place] [address], [facility] ALT [Catalytic activity/Vol] 32 U/L Normal 7-52 [facility] [place] Comment on above: Performed By: #### 0 0121, 05460, 57939 #### [facility] [address] [place] [address], [facility] AST [Catalytic activity/Vol] 122 U/L High 13-39 [facility] [place] Comment on above: Performed By: #### 0 0121, 20657, 22716 #### [facility] [address] [place] [address], [facility] Bilirubin [Mass/Vol] 0.6 mg/dL Normal 0.3-1.0 [facility] [place] Comment on above: Performed By: #### 0 0121, 83235, 45554 #### [facility] [address] [place] [address], [place] Calcium [Mass/Vol] 8.2 mg/dL Low 8.6-10.3 [facility] [place] Comment on above: Performed By: #### 0 0121, 96437, 41804 #### [facility] [address] [place] [address], [facility] Chloride [Moles/Vol] 94 mmol/L Low 98-107 [facility] [place] Comment on above: Performed By: #### 0 0121, , 31905 #### [facility] [address] [place] [address], [facility] CO2 [Moles/Vol] 22 mmol/L Normal 21-31 [facility] [place] Comment on above: Performed By: #### 0 0121, , 51112 #### [facility] [address] [place] [address], [facility] Creatinine [Mass/Vol] 0.59 mg/dL Low 0.60-1.20 [facility] [place] Comment on above: Performed By: #### 0 0121, , 22685 #### [facility] [address] [place] [id number], [facility] GFR/1.73 sq M.predicted among blacks MDRD (S/P/Bld) [Vol rate/Area] mL/min/{1.73_m2} Normal >60 [facility] [place] Comment on above: Performed By: #### 0 0121, , 64164 #### [facility] [address] [place] [address], [facility] GFR/1.73 sq M.predicted among non-blacks MDRD (S/P/Bld) [Vol rate/Area] mL/min/{1.73_m2} Normal >60 [facility] [place] Comment on above: Performed By: #### 0 0121, , 94162 #### [facility] [address] [place] [address], [place] Glucose [Mass/Vol] 129 mg/dL High 70-100 [facility] [place] Comment on above: Performed By: #### 0 0121, , 05885 #### [facility] [address] [place] [address], [place] Potassium [Moles/Vol] 4.4 mmol/L Normal 3.5-5.1 [facility] [place] Comment on above: Performed By: #### 0 0121, , 46239 #### [facility] [address] [place] [address], [facility] Protein [Mass/Vol] 6.6 g/dL Normal 6.0-8.3 [facility] [place] Comment on above: Performed By: #### 0 0121, 70775, 50676 #### [facility] [address] [place] [address], [facility] Sodium [Moles/Vol] 129 mmol/L Low 136-145 [facility] [place] Comment on above: Performed By: #### 0 0121, 99273, 75329 #### [facility] [address] [place] [address], [facility] Urea nitrogen [Mass/Vol] 4 mg/dL Low 7-25 [facility] [place] Comment on above: Performed By: #### 0 0121, 63508, 87510 #### [facility] [address] [facility] LOWER EXTREMITY WO CONTRA ST RIGHTon 01-07-2022 CT LOWER EXTREMITY WO CONTRAST RIGHT [facility] [place] Department of Radiology [address] [place] [id number] Patient Name: BERNADINE BHAKTA : 1965 Sex: F Age: Race: White Pt. Location: [facility] Patient Status: I Ordered Date: 01/07/2022 [...] surface, and lateral articular surface. Approved by:Elías Abernathyon01/07/2022 4:52 AM. I, Mehul Maxwell,have reviewed the image(s) and agree with the findings in this report. Electronically signed: Mehul Maxwell. Transcribed by: [email or web address], User Resident: ELÍAS ABERNATHY Electronically Signed by: MEHUL MAXWELL @ 01/07/2022 05:00 AM I personally read this/these film(s) with this resident Normal [facility] [place] Comment on above: Order Comment: No: D o not add to previous draw FEMUR RIGHT 2 [facility] 01-08-20 22 FEMUR RIGHT 2 [facility] Department of Radiology [address] [place] [id number] Patient Name: BERNADINE BHAKTA : 1965 Sex: F Age: Race: White Pt. Location: [facility] Patient Status: E Ordered Date: 01/07/2022 [...] extension to the articular surface. Approved by:Elías Abernathyon01/07/2022 2:21 AM. I, Mehul Maxwell,have reviewed the image(s) and agree with the findings in this report. Electronically signed: Mehul Maxwell. Transcribed by: [email or web address], User Resident: ELÍAS ABERNATHY Electronically Signed by: MEHUL MAXWELL @ 01/07/2022 02:24 AM I personally read this/these film(s) with this resident Normal [facility] [place] Comment on above: Order Comment: No: D o not add to previous draw HEPATITIS B CORE ANTIBODYon 01-07-2022 HEP B CORE AB Non-Reactive Normal NONREACTIVE [facility] [place] Comment on above: Order Comment: Yes: Add to Previous draw if able Performed By: #### 3 1400, 25874, 47678 #### [facility] [address] [facility]. [address] HEPATITIS B SURFACE ANTIGEN QUALon 01-07-2022 HEP B SURF AG QUAL Non-Reactive Normal NONREACTIVE [facility] [place] Comment on above: Order Comment: Yes: Add to Previous draw if able Performed By: #### 3 1400, 82174, 30682 #### [facility] [address] [place] [place] [address], [facility] HEPATITIS C ANTIBODYon 01-07 ANTI-HCV Non-Reactive Normal NONREACTIVE [facility] [place] Comment on above: Order Comment: No: D o not add to previous draw Performed By: #### 3 1400, 59177, 91965 #### [facility] [address] [facility]. [address] KNEE RIGHT 3 VWSon 2 KNEE RIGHT 3 S [facility] [place] Department of Radiology [address] [place] [id number] Patient Name: BERNADINE BHAKTA : 1965 Sex: F Age: Race: White Pt. Location: [facility] Patient Status: E Ordered Date: 01/07/2022 [...] report. Electronically signed: Mehul Maxwell. Transcribed by: [email or web address], User Resident: ELÍAS ABERNATHY Electronically Signed by: MEHUL MAXWELL @ 01/07/2022 02:17 AM I personally read this/these film(s) with this resident Normal [facility] [place] Comment on above: Order Comment: No: D o not add to previous draw OSMOLALITY BLOODon 2 Osmolality [Osmolality] 337 mosm/kg Critically high 285-305 [facility] [place] Comment on above: Performed By: #### 0 0121, 49957, 45548 #### [facility] [address] [place] [place] [address], [facility] OSMOLALITY URINEon 2 OSMOLALITY 499 mOsm/kg Normal 50-1400 [facility] [place] Comment on above: Order Comment: Yes: Add to Previous draw if able Performed By: #### 3 1400, 90526, 15516 #### [facility] [address] [place] [address], [facility] POC GLUCOSE LABon 01-07-2022 Glucose [Mass/Vol] 136 mg/dL High 70-100 [facility] [place] Comment on above: Performed By: #### 3 1400, 46938, 31103 #### [facility] [address] [place] [address], [place] Glucose [Mass/Vol] 151 mg/dL High 70-100 [facility] [place] Comment on above: Performed By: #### 0 0071 #### [facility] [address] [place] [address], [facility] Glucose [Mass/Vol] 127 mg/dL High 70-100 [facility] [place] Comment on above: Performed By: #### 0 0071 #### [facility] [address] [facility] [address], [facility] POC SARS COV2 IDon 2 SARS-CoV-2 (COVID-19) RNA KEELEY+probe Ql (Unsp spec) Negative Normal NEGATIVE [facility] [place] Comment on above: Result Comment: ID N [...] Accreditation. Performed By: #### 0 0071 #### [address] [place] [address], [facility] PORTABLE TIBIA FIBULA RIGHTo n 01-07-2022 PORTABLE TIBIA FIBULA RIGHT [facility] [place] Department of Radiology [address] [place] [id number] Patient Name: BERNADINE BHAKTA : 1965 Sex: F Age: Race: White Pt. Location: [facility] Patient Status: E Ordered Date: 01/07/2022 [...] fracture. Electronically signed: Mehul Maxwell. Transcribed by: [email or web address], User Resident: Electronically Signed by: MEHUL MAXWELL @ 01/07/2022 03:42 AM Normal [facility] [place] Comment on above: Order Comment: No: D o not add to previous draw PROTHROMBIN TIMEon INR Coag (PPP) [Relative time] 1.22 {INR} High 0.91-1.16 [facility] [place] Comment on above: Result Comment: [facility] RECOMMENDED INR FOR WARFARIN THERAPY --------- [...] CHEST 1995;[id number]. Performed By: #### 3 1400, 85362, 50517 #### [facility] [address] [place] [place] [address], [facility] PT Coag (PPP) [Time] 15.4 s High 12.3-14.8 [facility] [place] Comment on above: Result Comment: ALL RESULTS MUST BE INTERPRETED WITH RESPECT TO BLOOD DRAWING ARTIFACT OR DILUTION ERROR OF ANTICOAGULANT AT THE TIME OF SAMPLING. Performed By: #### 3 1400, 49236, 92631 #### [facility] [address] [place] [place] [address], [facility] RBC'S 2 UNITSon 01-07-2022 CROSSMATCH INTERP 1 COMP Normal [facility] [place] Comment on above: Performed By: #### 3 1400, 77742, 86450 #### [facility] [address] [place] [address], [place] CROSSMATCH INTERP 2 COMP Normal [facility] [place] Comment on above: Performed By: #### 3 1400, 15812, 31614 #### [facility] [address] [place] [address], [place] PRODUCT CODE 1 E0336 Normal [facility] [place] Comment on above: Performed By: #### 3 1400, 01515, 99951 #### [facility] [address] [place] [address], [place] PRODUCT CODE 2 E0336 Normal [facility] [place] Comment on above: Performed By: #### 3 1400, 46887, 73530 #### [facility] [address] [place] [address], [place] PRODUCT STATUS 1 RE Normal [facility] [place] Comment on above: Result Comment: Resu lt changed by IF on 01/11/2022 08:57. The previous value was XM. Performed By: #### 3 1400, 75189, 98686 #### [facility] [address] [place] [address], [place] PRODUCT STATUS 2 RE Normal [facility] [place] Comment on above: Result Comment: Resu lt changed by IF on 01/11/2022 08:57. The previous value was XM. Performed By: #### 3 1400, 10634, 11154 #### [facility] [address] [place] [address], [place] UNIT ABO 1 A Normal [facility] [place] Comment on above: Performed By: #### 3 1400, 34312, 30879 #### [facility] [address] [place] [address], [place] UNIT ABO 2 A Normal [facility] [place] Comment on above: Performed By: #### 3 1400, 61566, 89237 #### [facility] [address] [place] [address], [place] UNIT ID 1 [id number] Normal [facility] [place] Comment on above: Performed By: #### 3 1400, 37335, 00028 #### [facility] [address] [place] [address], [place] UNIT ID 2 [id number] Normal [facility] [place] Comment on above: Performed By: #### 3 1400, 14147, 19976 #### [facility] [address] [place] [address], [place] UNIT RH 1 Positive Normal [facility] [place] Comment on above: Performed By: #### 3 1400, 00748, 53353 #### [facility] [address] [place] [address], [place] UNIT RH 2 Positive Normal [facility] [place] Comment on above: Performed By: #### 3 1400, 88374, 51701 #### [facility] [address] [place] [address], [place] SODIUM URINE RANDOMon 2021 Sodium (U) [Moles/Vol] 21 mmol/L Normal Th e [facility] [place] Comment on above: Order Comment: Yes: Add to Previous draw if able Result Comment: Ther e are no established reference values for random urine specimens Performed By: #### 3 1400, 67515, 90733 #### [facility] [address] [place] [address], [place] TYPE AND SCREENon 01-07-2022 ABO INTERPRETATION A Normal [facility] [place] Comment on above: Performed By: #### 6 0576 #### [facility] [address] [place] [address], [place] RH INTERPRETATION Positive Normal [facility] [place] Comment on above: Performed By: #### 6 2586 #### [facility] [address] [place] [address], [place] VITAMIN D 25-HYDROXYon 01-07 VITAMIN D 25-OH 33.8 ng/mL Normal 30.0-80.0 [facility] [place] Comment on above: Result Comment: >80. 0 Toxicity possible Performed By: #### 0 0121, 69683, 70608 #### [facility] [address] Vital Signs Date Time Vital Sign Value Performing Clinician Facility 07-26-2024 14:12-0500 Body height 162.6 cm Bryson Rodriguez MD Work Phone: [facility] 07-26-2024 14:12-0500 Body mass index (BMI) [Ratio] 24.37 kg/m2 Bryson Rodriguez MD Work Phone: [facility] 07-26-2024 14:12-0500 Body weight 64.41 kg Bryson Rodriguez MD Work Phone: [facility] 07-26-2024 14:12-0500 Diastolic blood pressure 68 mm[Hg] Bryson Rodriguez MD Work Phone: [facility] 07-26-2024 14:12-0500 Heart rate 82 /min Bryson Rodriguez MD Work Phone: [facility] 07-26-2024 14:12-0500 SaO2% (BldA) [Mass fraction] 100 % Bryson Rodriguez MD Work Phone: [facility] 07-26-2024 14:12-0500 Systolic blood pressure 122 mm[Hg] Bryson Rodriguez MD Work Phone: [facility] 06-28-2024 13:46-0500 Body height 162.56 cm Serene Zelaya [employer] Work Phone: [facility] 06-28-2024 13:46-0500 Body mass index (BMI) [Ratio] 24 kg/m2 Serene Zelaya [employer] Work Phone: [facility] 06-28-2024 13:46-0500 Body weight 63.5 kg Serene Zelaya [employer] Work Phone: [facility] 05-01-2024 13:35-0500 Diastolic blood pressure 78 mm[Hg] Serene Zelaya [employer] Work Phone: [facility] 05-01-2024 13:35-0500 Heart rate 89 /min Serene Hemmer [employer] Work Phone: [facility] 05-01-2024 13:35-0500 Respiratory rate 16 /min Serene Hemmer [employer] Work Phone: [facility] 05-01-2024 13:35-0500 SaO2% (BldA) [Mass fraction] 97 % Serene Hemmer [employer] Work Phone: [facility] 05-01-2024 13:35-0500 Systolic blood pressure 118 mm[Hg] Serene Hemmer [employer] Work Phone: [facility] 05-01-2024 12:03-0500 Body height 162.56 cm Serene Hemmer [employer] Work Phone: [facility] 05-01-2024 12:03-0500 Body temperature 98.1 [degF] Serene Hemmer [employer] Work Phone: [facility] 05-01-2024 12:03-0500 Body weight 62.09 kg Serene Hemmer [employer] Work Phone: [facility] 03-22-2024 13:21-0400 Body height 162.56 cm [employer] Serene Hemmer Work Phone: [facility] 03-22-2024 13:21-0400 Body mass index (BMI) [Ratio] 24.2 kg/m2 [employer] Serene Hemmer Work Phone: [facility] 03-22-2024 13:21-0400 Body weight 63.95 kg [employer] Serene Hemmer Work Phone: [facility] 03-22-2024 13:21-0400 Diastolic blood pressure 70 mm[Hg] [employer] Serene Hemmer Work Phone: [facility] 03-22-2024 13:21-0400 Heart rate 93 /min [employer] Serene Hemmer Work Phone: [facility] 03-22-2024 13:21-0400 Systolic blood pressure 131 mm[Hg] [employer] Serene Hemmer Work Phone: [facility] 03-01-2024 14:09-0400 Diastolic blood pressure 67 mm[Hg] [employer] Serene Hemmer Work Phone: [facility] 03-01-2024 14:09-0400 Heart rate 96 /min [employer] Serene Hemmer Work Phone: [facility] 03-01-2024 14:09-0400 Respiratory rate 16 /min [employer] Serene Hemmer Work Phone: [facility] 03-01-2024 14:09-0400 SaO2% (BldA) [Mass fraction] 97 % [employer] Serene Hemmer Work Phone: [facility] 03-01-2024 14:09-0400 Systolic blood pressure 105 mm[Hg] [employer] Serene Hemmer Work Phone: [facility] 03-01-2024 11:05-0400 Body height 162.56 cm [employer] Serene Hemmer Work Phone: [facility] 03-01-2024 11:05-0400 Body weight 77.56 kg [employer] Serene Hemmer Work Phone: [facility] 02-23-2024 13:17-0400 Body height 162.56 cm [employer] Serene Hemmer Work Phone: [facility] 02-15-2024 11:06-0400 Body height 162.6 cm Serene Hemmer PA Work Phone: [facility] 02-15-2024 11:06-0400 Body mass index (BMI) [Ratio] 29.46 kg/m2 Serene Hemmer PA Work Phone: [facility] 02-15-2024 11:06-0400 Body weight 77.84 kg Serene Hemmer PA Work Phone: [facility] 02-15-2024 11:06-0400 Diastolic blood pressure 84 mm[Hg] Serene Hemmer PA Work Phone: [facility] 02-15-2024 11:06-0400 Heart rate 97 /min Serene Hemmer PA Work Phone: [facility] 02-15-2024 11:06-0400 Respiratory rate 16 /min Serene Hemmer PA Work Phone: [facility] 02-15-2024 11:06-0400 SaO2% (BldA) [Mass fraction] 95 % Serene Hemmer PA Work Phone: [facility] 02-15-2024 11:06-0400 Systolic blood pressure 132 mm[Hg] Serene Hemmer PA Work Phone: [facility] 02-08-2024 10:36-0400 Body height 162.6 cm Serene Hemmer PA Work Phone: [facility] 02-08-2024 10:36-0400 Body mass index (BMI) [Ratio] 28.91 kg/m2 Serene Hemmer PA Work Phone: [facility] 02-08-2024 10:36-0400 Body weight 76.39 kg Serene Hemmer PA Work Phone: [facility] 02-08-2024 10:36-0400 Diastolic blood pressure 82 mm[Hg] Serene Hemmer PA Work Phone: [facility] 02-08-2024 10:36-0400 Heart rate 107 /min Serene Hemmer PA Work Phone: [facility] 02-08-2024 10:36-0400 Respiratory rate 16 /min Serene Hemmer PA Work Phone: [facility] 02-08-2024 10:36-0400 SaO2% (BldA) [Mass fraction] 97 % Serene Hemmer PA Work Phone: [facility] 02-08-2024 10:36-0400 Systolic blood pressure 124 mm[Hg] Serene Zelaya PA Work Phone: [facility] Healthcare Encounters Encounter Date Encounter Type Care Provider Facility Start: 07-26-2024 End: 07-26-2024 ambulatory BRYSON RODRIGUEZ Not Available Start: 07-26-2024 End: 07-26-2024 Office outpatient visit 25 minutes Bryson Rodriguez MD Work Phone: [facility] Comment on above: Blister (nonthermal) , right foot, sequela (Primary Dx); Cellulitis and abscess of foot Start: 06-28-2024 End: 06-28-2024 ambulatory Serene Zelaya [employer] Work Phone: [facility] Work Phone: Start: 06-28-2024 End: 06-28-2024 Patient encounter procedure Serene Zelaya [employer] Work Phone: [facility] [place] Work Phone: Start: 05-01-2024 Non-patient / Non-visit Serene Zelaya [employer] Work Phone: [facility] Work Phone: Start: 05-01-2024 End: 05-01-2024 Admission to same day surgery center Serene Zelaya [employer] Work Phone: [facility] Work Phone: Start: 05-01-2024 End: 05-01-2024 ambulatory Serene Hemmer [employer] Work Phone: [facility] Work Phone: Start: 04-02-2024 End: 04-02-2024 Patient encounter procedure [employer] Serene Zelaya Work Phone: [facility] [place] Work Phone: Start: 04-02-2024 End: 04-02-2024 ambulatory [employer] Serene Hemmer Work Phone: [facility] Work Phone: Start: 03-22-2024 End: 03-22-2024 Patient encounter procedure [employer] Serene Hemmer Work Phone: [facility] Work Phone: Start: 03-08-2024 End: 03-11-2024 Telephone encounter Ruby Tesfaye Ayon [employer]ER Work Phone: [facility] Start: 03-01-2024 End: 03-01-2024 Admission to same day surgery center [employer] Serene Hemmer Work Phone: [facility] [place] Work Phone: Start: 03-01-2024 End: 03-01-2024 ambulatory [employer] Serene Hemmer Work Phone: [facility] Work Phone: Start: 02-28-2024 End: 02-28-2024 Patient encounter procedure PIE BAKERY LABORER-C Serene Hemmer Work Phone: [facility] Work Phone: Start: 02-28-2024 End: 02-28-2024 ambulatory PIE BAKERY LABORER-C Serene Hemmer Work Phone: [facility] Work Phone: Start: 02-23-2024 End: 02-23-2024 Patient encounter procedure PIE BAKERY LABORER-C Serene Hemmer Work Phone: [facility] Work Phone: Start: 02-16-2024 End: 02-16-2024 Telephone encounter Lizette Osborne MA [facility] Start: 02-15-2024 End: 02-15-2024 Bamboo flowsheet Serene Zelaya PA Work Phone: [facility] Start: 02-15-2024 End: 02-15-2024 Bamboo flowsheet Serene Zelaya PA Work Phone: [facility] Start: 02-15-2024 End: 02-15-2024 Office outpatient visit 15 minutes Serene Jose Nathalie PA Work Phone: [facility] Comment on above: Alcoholic cirrhosis of liver with ascites (CMS/HCC) (Primary Dx); Generalized edema; Abdominal distension Start: 02-15-2024 End: 02-15-2024 ambulatory SERENE Jose NATHALIE Not Available Start: 02-08-2024 End: 02-08-2024 Bamboo flowsheet Serene Jose Nathalie PA Work Phone: [facility] Start: 02-08-2024 End: 02-08-2024 Bamboo flowsheet Serene Jose Hemmer PA Work Phone: [facility] Start: 02-08-2024 End: 02-08-2024 Office outpatient visit 15 minutes Serene Zelaya PA Work Phone: [facility] Comment [...] 01-09-2022 Evaluation and management of inpatient BECK DELACRUZ Facility:[facility] Procedures Date Procedure Procedure Detail Performing Clinician Start: 05-01-2024 Esophagogastroduodenoscopy Serene Zelaya PIE BAKERY LABORER-C Work Phone: Start: 04-02-2024 Ultrasonography of liver PIE BAKERY LABORER-C Serene Rivera er Work Phone: Start: 03-01-2024 Ultrasonography guided puncture and aspiration of abdomen PIE BAKERY LABORER-C Serene Hemmer Work Phone: Start: 02-28-2024 Esophagogastroduodenoscopy PIE BAKERY LABORER-C Serenesharon booth Work Phone: Start: 02-28-2024 Ultrasound elastography of liver PIE BAKERY LABORER-C Kraig Zelaya Work Phone: Start: 12-28-2023 Mammography Serene ZAVALA Work Phone: Start: 01-07-2022 Antibody screen BECK EBRAHEIM Comment on above: Performed By: #### [id number] #### [address] Start: 05-22-2020 Colonoscopy Serene ZAVALA Work Phone: Start: 05-19-2020 Colonoscopy Ruby Ayon NP Work Phone: Start: 05-04-2017 Laboratory test result abnormal Abnormal laboratory test result Serene ZAVALA Work Phone: Plan of Treatment Date Care Activity Detail Author Start: 05-22-2030 Screening for malign ant neoplasm of colon [facility] Start: 05-19-2030 Screening for malign ant neoplasm of colon [facility] Start: 12-27-2024 Screening for malign ant neoplasm of breast Mammogram [facility] Start: 11-16-2024 Urine screening for protein Diabetes: Urine Protein Screening [facility] Start: 10-05-2024 Glaucoma screening Diabetes: R etinopathy Screening [facility] Start: 06-28-2024 Obgqx-1-jpzatasswux. tumo r marker [Mass/volume] in Serum or Plasma [facility] Start: 05-01-2024 End: 05-01-2024 [facility] Start: 03-01-2024 [facility] Start: 02-28-2024 [facility] Start: 02-28-2024 Actin smooth muscle IgG Ab [Units/volume] in Serum [facility] Start: 02-28-2024 Cefuroxime free [Mass/volume] in Serum or Plasma [facility] Start: 02-28-2024 Ceruloplasmin [Mass/volume] in Serum or Plasma [facility] Start: 02-28-2024 Hepatitis B core antibody measurement [facility] Start: 02-28-2024 Hepatitis B virus surface Ab [Presence] in Serum [facility] Start: 02-28-2024 [facility] Start: 02-19-2024 Influenza vaccination Influenza Vacc ine (#1) [facility] Start: 02-17-2024 Hemoglobin A1c measurement Diabetes: Hemoglobin A1C [facility] Start: 02-15-2024 End: 02-07-2025 Comprehensive metabolic 2000 panel - Serum or Plasma Comprehensive metabolic panel Lab Routine Generalized edema Elevated liver enzymes Expected: 02/15/2024 (Approximate), Expires: 02/07/[address] [facility] Work Phone: Comment on above: Expected: 02/15/2024 (Approximate), Expires: 02/07/2025 Start: 02-15-2024 End: 02-15-2024 Patient encounter procedure 02/15/2024 11:00 AM EDT Office Visit [facility] [address] [facility] [address] [place] [address] Serene Zelaya PA [address] [facility] [address] [place] [address] Arrived [facility] Comment on above: Arrived Start: 02-08-2024 End: 02-08-2024 Patient encounter procedure 02/08/2024 10:30 AM EDT Office Visit [facility] [address] [facility] [address] [place] [address] Serene Zelaya PA [address] [facility] [address] [place] [address] Arrived [facility] Comment on above: Arrived Start: 11-29-1993 Screening for malign ant neoplasm of cervix [facility] Start: 11-29-1984 Screening for malign ant neoplasm of cervix Pap Smear [facility] Start: 1965 Screening for malign ant neoplasm of colon [facility] Alpha 1 antitrypsin [Mass/volume] in Serum or Plasma [facility] Alpha 1 antitrypsin phenotyping [Identifier] in Serum or Plasma by Immunofixation [facility] Hepatitis B virus surface Ag [Presence] in Serum or Plasma by Immunoassay [facility] Hepatitis C virus Ig G Ab [Presence] in Serum or Plasma by Immunoassay [facility] Patient Education [facility] Work Phone: Immunizations Immunization Date Immunization Notes Care Provider Neal castro 08-03-2023 influenza, seasonal, injectable, preservative free Serene Hemmer PA Work Phone: [facility] 08-03-2023 influenza virus vacc ine, unspecified formulation Serene Hemmer PA Work Phone: [facility] 08-06-2022 zoster vaccine recombinant Serene Hemmer PA Work Phone: [facility] 05-05-2022 Influenza, injectabl e, Madin Estela Canine Kidney, preservative free, quadrivalent Serene Hemmer PA Work Phone: [facility] 05-05-2022 zoster vaccine recombinant Serene Hemmer PA Work Phone: [facility] 06-10-2021 influenza, seasonal, injectable Serene Hemmer PA Work Phone: [facility] 04-03-2020 influenza, injectabl e, quadrivalent, preservative free Serene Hemmer PA Work Phone: [facility] 04-19-2019 influenza, injectabl e, madin estela canine kidney, preservative free Serene Hemmer PA Work Phone: [facility] 05-05-2018 influenza, injectabl e, quadrivalent, preservative free Serene Hemmer PA Work Phone: [facility] 04-14-2017 seasonal influenza, intradermal, preservative free Serene Hemmer PA Work Phone: [facility] 01-19-2016 zoster vaccine, live Serene Blount emmer PA Work Phone: [facility] 04-20-2015 influenza, seasonal, injectable, preservative free Esrene Hemmer PA Work Phone: [facility] 07-06-2013 influenza, seasonal, injectable Serene Hemmer PA Work Phone: [facility] Payers Date Payer Category Payer Self-pay 2022 Private Health Insurance [id number] 2022 Unknown [id number] 1965 Unknown [id number] 2.16.8 [id number] 1965 Unknown [id number] 2.16.84 [id number] 1965 Unknown [id number] 2.16.84 [id number] 1965 Unknown [id number] 2.16.84 [id number] 1965 Unknown [id number] 2.16.84 [id number] 1963 Unknown [id number] 2.16.84 [id number] 1963 Unknown [id number] 2.16.84 [id number] 1965 Unknown [id number] 2.16.84 [id number] 1959 Unknown [id number] Unknown [id number] Unknown [id number] 2.16.8 [id number] Unknown [id number] .16.8 [id number] Unknown [id number] 2.16.8 [id number] Unknown [id number] .16.8 [id number] Unknown [id number] .16.8 [id number] Social History Date Type Detail Facility Start: 01-31-2024 End: 02-23-2024 Tobacco smoking status NHIS Ex-smoker (finding) [facility] Start: 1965 Sex Assigned At Female F [facility] Start: 05-01-2024 End: 06-29-2024 Sex Patient sex unknown (finding) [facility] End: 06-20-2017 History of tobacco use Current smoker [facility] End: 06-20-2017 History of tobacco use Cigarette Smoker [facility] Start: 01-31-2024 Tobacco use and exposure Smokeless tobacco non-user [facility] Start: 01-31-2024 End: 07-26-2024 Alcoholic beverage intake Ex-drinker (finding) [facility] Start: 01-31-2024 End: 07-26-2024 Alcoholic beverage intake [facility] Start: 01-31-2024 End: 07-26-2024 Tobacco use panel [facility] Start: 1965 Sex assigned at Not on file [facility] Medical Equipment Procedure Code Equipment Code Equipment Origin al Text Equipment Identifier Dates Blood Sugar Diagnostic (Onetouch Ultra Test) strip Start: 02-23-2024 Blood Sugar Diagnostic (Onetouch Ultra Test) strip Start: 02-23-2024 Blood Sugar Diagnostic (Onetouch Ultra Test) strip Start: 02-23-2024 Blood Sugar Diagnostic (Onetouch Ultra Test) strip Start: 02-23-2024 1 strip by In Vi tro route Daily [id number] Start: 11-21-2023 Blood Sugar Diagnostic (Onetouch Ultra Test) strip Start: 02-23-2024 Goals Date Patient Goal Desired Activity /State Clinical Notes 02-04-2022 to 07-26-2024 Bryson Rodriguez MD - 07/26/2024 2:27 PM Graeme Rodriguez MD - 07/26/2024 2:00 PM EST Note Date & Type Note Facility 07-26-2024 History of Presen t illness Narrative Associated Problem(s): Cellulitis and abscess of foot Discussed with patient watch for worsening infection there could be involvement Rocephin given Finish Doxycycline and the Cephalexin Podiatry with Dr. Osborn on Tuesday Images from the original note were not included. HPI Foot Blister Additional comments: Right foot top blister did pop went to ER on 07/24/24 Last edited by Mayuri Rivera MA on 07/26/2024 12:13 PM. Subjective Patient ID: Bernadine Bhakta is a 58 y.o. female who presents for Foot Blister (Right foot top blister did pop went to ER on 07/24/24). Pt did have a blister on the side of her right foot about 5 days ago , possibly it did pop and it was red around the wound area , pt did go to the ER on 07/24 for this last night there was some drainage Pt was given abx, Current Outpatient Medications on File Prior to Visit Medication Sig Dispense Refill carvedilol (Coreg) 3.125 MG tablet Take 3.125 mg by mouth in the morning and 3.125 mg before bedtime. furosemide (Lasix) 40 MG tablet Take 40 mg by mouth Daily spironolactone (Aldactone) 100 MG tablet Take 100 mg by mouth Daily calcium citrate 1040 MG tablet Take 2 tablets by mouth in the morning and 2 tablets in the evening and 2 tablets before bedtime. cephalexin (Keflex) 500 MG capsule Take 1 capsule (500 mg) by mouth in the morning and 1 capsule (500 mg) at noon and 1 capsule (500 mg) in the evening and 1 capsule (500 mg) before bedtime. Do all this for 10 days. cholecalciferol (Vitamin D-3) 50 MCG (2000 UT) capsule Take 1 capsule by mouth 1 (one) time each day at the same time. cyanocobalamin (Vitamin B-12) 100 MCG tablet Take 1 tablet by mouth in the morning. docusate sodium (Colace) 100 MG capsule Take 1 capsule by mouth Daily as needed for constipation. doxycycline (Monodox) 50 MG capsule Take 2 capsules (100 mg) by mouth in the morning and 2 capsules (100 mg) before bedtime. Do all this for 10 days. Take with at least 8 ounces (large glass) of water, do not lie down for 30 minutes after. famotidine (Pepcid) 20 MG tablet Take 1 tablet (20 mg) by mouth at bedtime 100 tablet 3 gabapentin (Neurontin) 100 MG capsule Take 1 capsule (100 mg) by mouth every 8 (eight) hours 90 capsule 2 Glucose Blood (Blood Glucose Test Strips 333) strip 1 strip by In Vitro route Daily 100 strip 3 metFORMIN, OSM, (Fortamet) 500 MG 24 hr tablet Take 1 tablet (500 mg) by mouth in the morning and 1 tablet (500 mg) in the evening. Take with meals. Do not crush, chew, or split.. 90 tablet 2 metOLazone (Zaroxolyn) 5 MG tablet Take 1 tablet (5 mg) by mouth Daily for 5 days 5 tablet 0 Multiple Vitamin (Multi Vitamin) tablet Take 1 tablet by mouth 1 (one) time each day at the same time. omega-3 (Fish Oil) 1000 MG capsule Take 1 capsule by mouth 1 (one) time each day at the same time. potassium chloride (Klor-Con) 20 MEQ packet Take 20 mEq by mouth Daily 100 packet 0 [DISCONTINUED] furosemide (Lasix) 20 MG tablet Take 1 tablet (20 mg) by mouth in the morning and 1 tablet (20 mg) before bedtime. 60 tablet 2 No current facility-administered medications on file prior to visit. I have reviewed and reconciled the history and medication list with the patient today. No Known Allergies Social History Tobacco Use Smoking status: Former Current packs/day: 0.00 Types: Cigarettes Quit date: 2017 Years since quittin.1 Smokeless tobacco: Never Vaping Use Vaping status: [...] ESOPHAGOGASTRODUODENOSCOPY 2018 HEMORRHOID SURGERY 2014 HIP SURGERY 2013 KNEE SURGERY 2013 ORIF FEMUR FRACTURE 01/08/2022 US GUIDED ABDOMINAL PARACENTESIS 03/01/2024 US GUIDED ABDOMINAL PARACENTESIS Visit Vitals Smoking Status Former Review of Systems Constitutional: Negative for chills and fever. Objective Physical Exam Constitutional: Appearance: Normal appearance. Skin: General: Skin is warm. Findings: Erythema present. Comments: Has nickel sized blistered lesions to the medial and lateral aspects of foot. Warmth around blister and redness Neurological: Mental Status: She is alert. Assessment/Plan Problem List Items Addressed This Visit Cellulitis and abscess of foot Discussed with patient watch for worsening infection there could be involvement Rocephin given Finish Doxycycline and the Cephalexin Podiatry with Dr. Osborn on Tuesday Blister (nonthermal), right foot, sequela - Primary Relevant Medications cefTRIAXone (Rocephin) vial 1 g (Start on 07/26/2024 2:30 PM) No follow-ups on file. documented in this encounter [facility] 06-28-2024 Evaluation note Diagnosis Onset Date Resolution Alcoholic cirrhosis acute Janua ry 2024 1:42pm Ascites acute June 28 1:42pm Elevated liver enzymes acute Ja nuary 2024 1:42pm History of alcohol abuse acute June 28 1:42pm [facility] Work Phone: 1(421) 737-367811-12-2024 [place] [address] EGD Procedure Note Signed Patient: Bernadine Bhakta MR#: [id number] : 1965 Acct:[id number] Age/Sex: 58 / F Adm Date: 4 Loc: Room: Type: [facility] Attending Dr: Wes Hadley MD Copies to: [...] MD 05/01/24 1303 Signed By: 05/01/24 1306 [facility]11-12-2024 History and [place] [id number] Gastroenterology H&P Signed Patient: Bernadine Bhakta MR#: [id number] : 1965 Acct:[id number] Age/Sex: 58 / F Adm Date: 4 Loc: Room: Type: [facility] Attending Dr: Wes Hadley MD Copies to: [...] Hadley MD 05/01/24 1300 Signed By: 05/01/[address] [place], [place] 3029409-22-2024 Telephone encounter Note* Telephone Encounter - Ruby Ayon NP - 03/11/2024 9:53 AM EDT Called the patient and discussed the use of gabapentin with the pt and her . No changes willbe made at this time. [id number] Miscellaneous Notes* Telephone Encounter - Ruby Ayon [...] the office. Would like a call back [phone]. documented in this [facility] [id number] Telephone encounter Note* Telephone Encounter - Irma Georges - 03/08/2024 10:33 AM EDT Patient called and would like to know if his should still be taking the Gabapentin dueto liver issues? Was asking if Ruby Garcia was back in the office. Would like a call back [phone]. [id number] Evaluation note* Diagnosis Onset Date Resolution Status Admit Date Alcoholic cirrhosis acute Septe mber 2023 1:08pm Ascites acute February 23, 2024 1:08pm Elevated liver enzymes acute Se ptember 2023 1:08pm History of alcohol abuse acute February 23, 2024 1:08pm Ascites acute February 10:51am Alcoholic cirrhosis acute Octob er 2023 1:06pm [facility] Work Phone: 1(493) 874-179308-29-2024 Telephone encounter Note* Telephone Encounter - LUCAS Reza - 02/16/2024 6:54 PM EDT Called and left a message with interventional radiology that it will be a therapeutic paracentesis and told them to call back with any further questions. [id number] Miscellaneous Notes* Telephone Encounter - LUCAS Reza - 02/16/2024 6:54 PM EDT Called and left a message with interventional radiology that it will be a therapeutic paracentesis and told them to call back with any further questions. * Telephone Encounter - Lizette Osborne MA - 02/16/2024 2:38 PM EDT [facility] Radiology called wanting to know if the paracentesis was diagnostic or therapeutic, stated if diagnostic they'll need to know what its being ran for. Radiology informed Serene would be askedand they'd get a CB tomorrow morning documented in this encounterMer[facility] [id number] Telephone encounter Note* Telephone Encounter - Lizette Osborne MA - 02/16/2024 2:38 PM EDT [facility] Radiology called wanting to know if the paracentesis was diagnostic or therapeutic, stated if diagnostic they'll need to know what its being ran for. Radiology informed Serene would be askedand they'd get a CB tomorrow morning [facility] [id number] History of Present illness Narrative* LUCAS Reza - 02/15/2024 11:00 AM EDT Images from the original note were not included. Subjective Patient ID: Bernadine Medinavinger is a 58 y.o. female who presents [...] Current packs/day: 0.00 Types: Cigarettes Quit date: 2018 Years since quittin.6 Smokeless tobacco: Never Vaping [...] SECTION, LOW TRANSVERSE 1989 COLONOSCOPY 05/19/2020 ESOPHAGOGASTRODUODENOSCOPY 2017 HEMORRHOID SURGERY 2013 HIP SURGERY 2012 KNEE [...] would like to have this done at [facility]. Generalized edema - furosemide (Lasix) 20 MG [...] No follow-ups on file. documented in this [facility]08-21-2024 History of Present illness Narrative* LUCAS Reza [...] before bedtime. cholecalciferol (Vitamin D-3) 50 MCG (1999 UT) capsule Take 1 capsule by mouth [...] Current packs/day: 0.00 Types: Cigarettes Quit date: 2018 Years since quittin.6 Smokeless tobacco: Never Vaping [...] 1989 COLONOSCOPY 05/19/2020 ESOPHAGOGASTRODUODENOSCOPY 2018 HEMORRHOID SURGERY 2013 [...] (around 02/15/2024) for Recheck. documented in this encounterMercy Hospital St. [id number] NoteMR#: [id number] I [facility] Pt. Name: Bernadine Bhakta Admitted: 01/07/2022 Discharged: 01/09/2022 Date of : 1965 Physician: Beck Delacruz M.D. DISCHARGE SUMMARY PRIMARY DIAGNOSIS: Right intra-articular distal femur fracture. SECONDARY DIAGNOSES: 1. Hypertension. 2. Diabetes. 3. Hyperlipidemia. 4. Chronic anxiety disorder. DESCRIPTION OF HOSPITAL STAY: The patient is a 56-year-old female, who presented to [facility] for operative stabilization of a right [...] Carty MD Date Trans: 02/04/2022 12:45 P/mmo [id number] cc: Bryson Rodriguez M.D. [facility] [address]* Diagnosis Onset Date Resolution Status Alcoholic cirrhosis acute Ascites acute Elevated liver enzymes acute History of alcohol abuse acu te [facility] Work Phone: Evaluation note* Diagnosis Onset Date Resolution Status Alcoholic cirrhosis acute Ascites acute Elevated liver enzymes acute History of alcohol abuse acu te Ascites acute [facility] Work Phone: Evaluation note* Diagnosis Onset Date Resolution Status Alcoholic cirrhosis acute Ascites acute Elevated liver enzymes acute History of alcohol abuse acu te Ascites acute Alcoholic cirrhosis acute [facility] Work Phone: Evaluation note* Diagnosis Generalized edema- Primary Edema Abdominal distention Flatulence, eructation, and gas pain Alcoholic cirrhosis of liver with ascites (CMS/HCC) Elevated liver enzymes Other nonspecific abnormal serum enzyme levels [facility] Diagnosis Alcoholic cirrhosis of liver with ascites (CMS/HCC)- Primary Generalized edema Edema Abdominal distension Flatulence, eructation, and gas pain documented [facility] this [facility]* Diagnosis Blister (nonthermal), right foot, sequela- Primary Cellulitis and abscess of foot Cellulitis and abscess of foot, except toes documented in this encounter [facility] Healthcare[facility] and physical note Author Wes Hadley [facility] Note Date/Time May 01, 2024 1:03pm [facility] [address] [place] [address] Gastroenterology H&P Signed Patient: Bernadine Bhakta MR#: [id number] : 1965 Acct:[id number] Age/Sex: 58 / F Adm Date: 4 Loc: Room: Type: [facility] Attending Dr: Wes Hadley MD Copies to: [...] signed by Wes Hadley MD> 05/01/24 1303 [facility] Work Phone: Summary Purpose Family History No [...] and content) DATE CREATED AUTHOR 02/16/2022 [facility] DATE CREATED AUTHOR AUTHOR'S ORGANIZ ATION 11/03/2022 [facility] DATE CREATED AUTHOR AUTHOR'S ORGANIZ ATION 01/24/2024 [facility] DATE CREATED AUTHOR AUTHOR'S ORGANIZ ATION 07/03/2024 [facility] ysician Group DATE CREATED AUTHOR AUTHOR'S ORGANIZ ATION 07/29/2024 [facility] dical Specialists [facility] Care Teams (unrecognized sec tion and content) Team Status: Active Member Role Status Dates Serene Zelaya PIE BAKERY LABORER-C Primary Care Provider Active Team Status: Inactive Member Role Status Dates Wes Hadley MD Attending Provider Active S tart: February 23, 2024 End: February 23, 2024 Ruby Ayon NP-C Referring Provider Active St art: February 23, 2024 End: February 23, 2024 Serene Zelaya PIE BAKERY LABORER-C Primary Care Provider Active Start: February 23, 2024 End: February 23, 2024 Team Status: Inactive Member Role Status Dates Serene Zelaya NP-C Primary Care Provider Active Start: February 28, 2024 End: February 28, 2024 Wes Hadley MD Attending Provider Active S tart: February 28, 2024 End: February 28, 2024 Team Status: Inactive Member Role Status Dates Serene Zelaya NP-C Primary Care Provide r, Attending Provider Active Start: March 01, 2024 End: March 01, 2024 Team Status: Inactive Member Role Status Dates Serene Zelaya NP-C Primary Care Provider Active Start: March 22, 2024 End: March 22, 2024 Wes Hadley MD Attending Provider Active S tart: March 22, 2024 End: March 22, 2024 Team Status: Inactive Member Role Status Dates Serene Zelaya NP-C Primary Care Provider Active Start: April 02, 2024 End: April 02, 2024 Wes Hadley MD Attending Provider Active S tart: April 02, 2024 End: April 02, 2024 Team Status: Inactive Member Role Status Dates Serene Zelaya NP-C Primary Care Provider Active Start: May 01, 2024 End: May 01, 2024 Wes Hadley MD Attending Provider Active S tart: May 01, 2024 End: May 01, 2024 Team Status: Active Member Role Status Dates Serene Zelaya NP-C Primary Care Provider Active Start: May 01, 2024 Wes Hadley MD Attending Provider, Other Provider Active Start: May 01, 2024 Shipping And Receiving Supervisor Relationship Specialty Start Date End Date Bryson Rodriguez MD [address] [place] [address] PCP - General Family Medicine 10/26/22 Shipping And Receiving Supervisor Relationship Specialty Start Date End Date Bryson Rodriguez MD [address] [facility] [address] [place] [address] PCP - General Family Medicine 10/26/22 Shipping And Receiving Supervisor Relationship Specialty Start Date End Date Bryson Rodriguez MD [address] [facility] [address] [place] [address] PCP - General Family Medicine 10/26/22 Shipping And Receiving Supervisor Relationship Specialty Start Date End Date Bryson Rodriguez MD [address] [facility] [address] [place] [address] PCP - General Family Medicine 10/26/22 Team Status: Inactive Member Role Status Dates Serene Zelaya , PIE [employer] Primary Care Provider Active Start: June 28, 2024 End: June 28, 2024 Wes Hadley MD Attending Provider Active S tart: June 28, 2024 End: June 28, 2024 Shipping And Receiving Supervisor Relationship Specialty Start Date End Date Bryson Rodriguez MD [address] [facility] [address] [place] [address] PCP - General Family Medicine 10/26/22 Goals (unrecognized section and content) Goals may be documented in a n alternate sectionGoals may be documented in an alternate sectionGoals may be documented in an alternate section Reason for Visit (unrecogniz ed section and content) Reason Comments Foot Blister Right foot top blist er did pop went to ER on 07/24/24 FOR RECORDS PERTAINING TO PATIENTS WHO ARE [...] BE BASED ON THE PRIMARY CLINICAL RECORDS. [facility] [employer] provides no warranty or guarantee of the accuracy or completeness of information in this document.
== END 2024-08-14 10:27 | disposition home or self-care (01) ==
LOC: WC 10:26
PROVIDERS: PCP Family Medicine; Visit Provider Physician Assistant
DX: I70.234 Atherosclerosis of native arteries of right leg with ulceration of heel and midfoot (principal); L97.411 Non-pressure chronic ulcer of right heel and midfoot limited to breakdown of skin
CPT/HCPCS: G0463

== ENCOUNTER 2025-03-22 10:04 | Outpatient (OUT) | payer BC, SELFPAY ==
--- OUTSIDE RECORDS SUMMARY | 2025-03-22 10:06 | XMS_ITS | Encounter Summary ---
Author Organization [facility] Address [address] [place] [address] Care Team Providers Care Thermo Processor Name Role Phone Ruth Rose MD Primary Care Provider [phone] Ruth Rose MD Unavailable Raya Snowden LPN Unavailable Encounter Details Date Type Department Care Team (Late Contact Info) Description 03/14/2024 Abstract [facility] [place] [facility] [address] [facility] [address] [place] [phone] Ruth Rose MD [address] [facility] [address] [place] [address] Social History Tobacco Use Types Packs/Day Years Used Date Smoking Tobacco: Former Cigarettes Q uit: 2018 Smokeless Tobacco: Never Alcohol Use Standard Drinks/Week Comments Not Currently 3 (1 standard drink = 0.6 oz pur e alcohol) Comments Unknown Sex and Gender Information Value Date Recorded Sex Assigned at Female 12/08/2024 7:23 PM EDT Legal Sex Female 7:03 PM EDT Gender Identity Female 12/08/2024 7:23 PM EDT Sexual Orientation Straight 12/08/2024 7: 23 PM EDT documented as of this encounter Plan of Treatment Upcoming Encounters Date Type Department Care Team (Late Contact Info) Description 03/27/2025 10:00 AM EDT Procedure Visit [facility] [place] [facility] [address] [facility] [address] [place] [address] Madhavi March, AINSLEY [address] [facility] [address] [place] [address] documented as of this encounter Visit Diagnoses Not on filedocumented in this encounter Care Teams Thermo Processor Relationship Specialty Start Date End Date Ruth Rose MD [address] [facility] [address] [place] [address] PCP - General Family Medicine 10/26/22 Ruth Rose MD [address] [facility] [address] [place] [address] [facility] 12/18/24 Raya Snowden LPN [address] [place] [address] 03/13/25 03/18/25 documented as of this encounter
--- OUTSIDE RECORDS SUMMARY | 2025-03-22 10:06 | XMS_ITS | Encounter Summary ---
Author Organization [employer] Address [id number] [address] [place] [address] Care Team Providers Care Generator Operator Straight Bevel Gear Name Role Phone Ruth Rose MD Primary Care Provider [phone] Encounter Details Date Type Department Care Team (Late st Contact Info) Description 11/20/2024 Telephone [facility] [address] [place] [address] Destiny Portillo Social History Tobacco Use Types Packs/Day Years Used Date Smoking Tobacco: Former Cigarettes 2 27 Smokeless Tobacco: Never Alcohol Use Standard Drinks/Week Comments Yes 0 (1 standard drink = 0.6 oz pur e alcohol) social Childcare Answer Date Recorded Childcare Unknown 11/29/2018 Employment Answer Date Recorded Employment Unknown 11/29/2018 Hunger Screening Answer Date Recorded Within the past 12 months we worried whether our food would run out before we got money to buy more. Never True 11/01/2024 Within the past 12 months th e food we bought just didn't last and we didn't have money to get more. Never True 11/01/2024 Purpose - Life Answer Date Recorded Purpose and direction in life Unknown Comments No Sex and Gender Information Value Date Recorded Sex Assigned at Not on file Legal Sex Female 11:40 AM EDT Gender Identity Not on file Sexual Orientation Not on file documented as of this encounter Miscellaneous Notes * Telephone Encounter - Destiny Portillo - 11/20/2024 12:46 PM EDT Pts calling in after seeing on 11/01 and getting testing done that he ordered on 11/15. He was wondering about results from the doppler testing and I did not see a f/u scheduled so I put her on the schedule for Kyle on 11/29 at 10:30AM and told caller that if Dr. Dang had anything he wanted to relay beforehand he would reach out. Thank you. * Telephone Encounter - Radha Garrido CMA - 11/20/2024 12:46 PM EDT This has been handled documented in this encounter Plan of Treatment Upcoming Encounters Date Type Department Care Team (Late st Contact Info) Description 08/12/2025 10:00 AM EST Appointment [facility] [address] [place] [phone] Raulito Dang MD [address], [address] [address] 08/22/2025 8:40 AM EST Office Visit [facility] [address] [place] [address] Raulito Dang MD [address], [address] [address] documented as of this encounter Visit Diagnoses Not on filedocumented in this encounter Care Teams Generator Operator Straight Bevel Gear Relationship Specialty Start Date End Date [place] [address] [place] [address] PCP - General Family Medicine 04/26/18 documented as of this encounter
--- OUTSIDE RECORDS SUMMARY | 2025-03-22 10:06 | XMS_ITS | Encounter Summary ---
Author Organization [facility] Address [address] [place] [address] Care Team Providers Care Manager Services Name Role Phone Ruth Rose MD Primary Care Provider Ruth Rose MD Unavailable Raya Snowden LPN Unavailable Encounter Details Date Type Department Care Team (Late Contact Info) Description 02/23/2024 Abstract [facility] [place] [address] [facility] 110 [place] [phone] Ruth Rose MD [address] [facility] 110 [place] [address] Social History Tobacco Use Types Packs/Day Years [...] 10:00 AM EDT Procedure Visit [facility] [place] [facility] [address] [place] [address] Madhavi March, AINSLEY [address] [place] [address] documented as of this encounter Visit Diagnoses Not on filedocumented in this encounter Care Teams Manager Services Relationship Specialty Start Date End Date Ruth Rose MD [address] [facility] 110 [place] [address] PCP - General Family Medicine 10/26/22 Ruth Rose MD [address] [facility] 110 [place] [address] [facility] 12/18/24 Raya Snowden LPN [address] [facility] [address] [place] [address] 03/13/25 03/18/25 documented as of this encounter
--- OUTSIDE RECORDS SUMMARY | 2025-03-22 10:06 | XMS_ITS | Encounter Summary ---
Author Organization [facility] Address [address] [place] [address] Care Team Providers Care Advertiser Name Role Phone Ruth Rose MD Primary Care Provider Ruth Rose MD Unavailable Raya Snowden LPN Unavailable Encounter Details Date Type Department Care Team (Late Contact Info) Description 03/01/2024 Abstract [facility] [place] [address] [facility] 110 [place] [phone] Ruth Rose MD [address] [facility] 110 [place] [address] Social History Tobacco Use Types Packs/Day Years [...] [place] Santamaria [address] [place] [address] Madhavi March, AINSLEY [address] [place] [address] documented as of this encounter Visit Diagnoses Not on filedocumented in this encounter Care Teams Advertiser Relationship Specialty Start Date End Date Ruth Rose MD [address] [facility] 110 [place] [address] PCP - General Family Medicine 10/26/22 Ruth Rose MD [address] [facility] 110 [place] [address] [facility] 12/18/24 Raya Snowden LPN [address] [facility] [address] [place] [address] 03/13/25 03/18/25 documented as of this encounter
--- OUTSIDE RECORDS SUMMARY | 2025-03-22 10:06 | XMS_ITS | Encounter Summary ---
Author Organization [facility] Address [address] [place] [address] Care Team Providers Care Ticket Puller Name Role Phone Ruth Rose MD Primary Care Provider Ruth Rose MD Unavailable Raya Snowden LPN Unavailable Encounter Details Date Type Department Care Team (Late Contact Info) Description 06/28/2024 Abstract [facility] [place] [address] [facility] 110 [place] [phone] Ruth Rose MD [address] [facility] 110 [place] [address] Social History Tobacco Use Types Packs/Day Years [...] [place] [address] [facility] [address] [place] [address] Madhavi March, AINSLEY [address] [facility] [address] [place] [address] documented as of this encounter Visit Diagnoses Not on filedocumented in this encounter Care Teams Ticket Puller Relationship Specialty Start Date End Date Ruth Rose MD [address] [facility] 110 [place] [address] PCP - General Family Medicine 10/26/22 Ruth Rose MD [address] [facility] 110 [place] [address] [facility] 12/18/24 Raya Snowden LPN [address] [facility] [address] [place] [address] 03/13/25 03/18/25 documented as of this encounter
--- OUTSIDE RECORDS SUMMARY | 2025-03-22 10:06 | XMS_ITS | Clinical Summary ---
Author Organization [employer] Address [id number] [address] [place] [address] Care Team Providers Care Nurse Practitioner Home Assessments Name Role Phone Ruth Rose MD Primary Care Provider [phone] Allergies Active Allergy Reactions Criticality Noted Date Comments No Known Drug Allergies 09/14/2016 Medications docusate sodium (COLACE) 100 mg capsuleIndicat ions:constipat ion Take 1 capsule (100 mg total) by mouth in the morning and 1 capsule (100 mg total) before bedtime. Indications : constipatio n. Active cyanocobalamin (vitamin B-12) 1000 MCG tablet Take 1 tablet (1,000 mcg total) by mouth in the morning. Active furosemide (LASIX) 40 mg tabletIndicati ons:edema Take 0.5 tablets (20 mg total) by mouth daily Indications : visible water retention. Active carvediloL (COREG) 12.5 mg tabletIndicati ons:hypertensi on Take 1 tablet (12.5 mg total) by mouth in the morning and 1 tablet (12.5 mg total) in the evening. Take with meals. Indications : high blood pressure. Active spironolactone (ALDACTONE) 100 mg tablet Take 0.5 tablets (50 mg total) by mouth in the morning. edema. Active metFORMIN (GLUCOPHAGE) 500 mg tablet Take 1 tablet (500 mg total) by mouth in the morning and 1 tablet (500 mg total) before bedtime. Active aspirin 81 mg chewable tablet Chew 1 tablet (81 mg total) and swallow in the morning. 90 tablet 4 5 Active omega 9-ior-sov-fish oil 100-400-1,000 mg capsule Take 1 capsule by mouth. Active folic acid (FOLVITE) 800 MCG tablet Take 0.5 tablets (400 mcg total) by mouth in the morning. Active cholecalcifero l 1,000 units tablet Take 1 tablet (1,000 Units total) by mouth in the morning. Active CALCIUM ORAL Take 600 mg by mouth in the morning. Active clopidogreL (PLAVIX) 75 mg tablet Take 1 tablet (75 mg total) by mouth in the morning. 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 Plan is to send her to podiatry for the management of her great toe and wound. She may need a foot procedure or different shoes. Plan is also to continue aspirin Plavix and statin and follow up in 6 months with PVR. Assessment & Plan (01/03/2025 9:32 AM EDT): PVR Wound care referral Continue ASA, Plavix and statin Assessment & Plan (11/29/2024 10:56 AM EDT): Right iliofemoral endarterectomy, Possible angio. Assessment & Plan (11/01/2024 9:11 AM EDT): We will get PVR with toe pressure and CT abdomen pelvis with runoff.In the meanwhile I recommend atorvastatin and baby aspirin. Encounters Date Type Department Care Team Description 02/26/2025 [facility] [address] [place] [phone] Raulito Dang MD 02/07/2025 8:50 AM EDT Office Visit [facility] [place] [place] [address] [address] Raulito Dang MD Critical ischemia of foot ([facility]) (Primary Dx); 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 ([facility]) 02/06/2025 Travel 01/31/2025 9:41 AM EDT - 01/31/2025 11:59 PM EDT Hospital Encounter [facility] - Vascular [address] [place] [address] Raulito Dang MD 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 ([facility]) Discharge Disposition: Home 01/31/2025 Travel 01/30/2025 Telephone [facility] [place] [address] Jessie Miranda CMA 01/28/2025 Refill [facility] Vascular Surgery [address] [place] [phone] Raulito Dang MD 01/03/2025 9:20 AM EDT Office Visit [facility] [place] [place] [address] [place] [address] Raulito Dang MD 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 ([facility]) (Primary Dx) 01/03/2025 Travel 12/30/2024 Refill [facility] Vascular Surgery [facility] [address], [place] [address] Raulito Dang MD from Last 3 Months Family History Medical History Relation Name Comments Cancer Father UNKNOWN Diabetes Maternal Grandmother Aneurysm Mother Anesthesia problems Neg Hx Relation Name Status Comments Father Maternal Grandmother Mother Social History Tobacco Use Types Packs/Day Years Used Date Smoking Tobacco: Former Cigarettes 2 1 2 - 2012 Smokeless Tobacco: Never Tobacco Cessation:Counseling Given: Not Answered Alcohol Use Standard Drinks/Week Comments Not Currently 0 (1 standard drink = 0.6 oz pur e alcohol) [facility] Utilities Answer Date Recorded In the past 12 months has th e electric, gas, oil, or water company threatened to shut off services in your home? No 12/14/2024 AUDIT-C Answer Date Recorded Q1: How often do you have a drink containing alcohol? Never 12/14/2024 Q2: How many drinks containi ng alcohol do you have on a typical day when you are drinking? Patient does not drink Q3: How often do you have si x or more drinks on one occasion? Never 12/14/2024 PHQ-2 Answer Date Recorded Total Score 0 12/14/2024 PRAPARE - Transportation Answer Date Re corded In the past 12 months, has l ack of transportation kept you from medical appointments or from getting medications? No 11/19 In the past 12 months, has l ack of transportation kept you from meetings, work, or from getting things needed for daily living? No 12/14/2024 Housing Instability Answer Date Recorde d Are you worried or concerned that in the next two months you may not have stable housing that you own, rent or stay in as a part of a household? No 12/14/2024 Childcare Answer Date Recorded Childcare Unknown 11/29/2018 Employment Answer Date Recorded Employment Unknown 11/29/2018 Hunger Screening Answer Date Recorded Within the past 12 months we worried whether our food would run out before we got money to buy more. Never True 02/07/2025 Within the past 12 months th e food we bought just didn't last and we didn't have money to get more. Never True 02/07/2025 Purpose - Life Answer Date Recorded Purpose and direction in life Unknown Comments No Sex and Gender Information Value Date Recorded Sex Assigned at Not on file Legal Sex Female 11:40 AM EDT Gender Identity Not on file Sexual Orientation Not on file Last Filed Vital Signs Vital Sign Reading Time Taken Comments Blood Pressure 86/53 02/07/2025 8:48 AM EDT Pulse 91 01/03/2025 9:15 AM EDT Temperature 36.6 C (97.9 F) 12/14/2024 11:00 AM EDT Respiratory Rate 13 12/14/2024 12:00 PM EDT Oxygen Saturation 99% 12/14/2024 12:00 PM EDT Inhaled Oxygen Concentration - - Weight 64.4 kg (142 lb) 02/07/2025 8:48 AM EDT Height 162.6 cm (5' 4 ) 02/07/2025 8:48 AM EDT Body Mass Index 24.37 02/07/2025 8:48 AM EDT Plan of Treatment Upcoming Encounters Date Type Department Care Team (Late st Contact Info) Description 08/12/2025 10:00 AM EST Appointment [facility] - Vascular [address] [place] [phone] Raulito Dang MD [address], [facility] [address] [place] [address] 08/22/2025 8:40 AM EST Office Visit [facility] [place] [address] Raulito Dang MD [address], [facility] [address] [place] [address] Health Maintenance Due Date Last Done Comments Statin Use: Cardiovascular 1965 DTaP,Tdap and Td Vaccines (1 - Tdap) 11/29/1982 Pap Smear 03/23/2019 03/23/2016 Influenza Vaccine 02/18/2025 08/03/2024, , 05/05/2022, Additional history exists Depression Screening 12/14/2025 12/14/2024 Tobacco Screening 01/03/2026 01/03/2025 Adult BMI Screening 02/07/2026 02/07/2025 Colonoscopy 05/19/2030 05/19/2020, 04/22, 05/19/2020, Additional history exists Zoster (Shingles) Vaccine Completed 2022, 05/05/2022, 01/19/2016 Medical Devices Implanted Type Area Jewelry Sorter Device Identifier Shelf Expiration Date Model / Serial / Lot Patch Vsc 8x.8cm Xenosure Bvn Pricrd Tiss Strl Rpl [id number] - [id number] Implanted:Qty : 1 on 12/13/2024 by Raulito Dang MD at [facility] Graft Right: Arterial [employer] [id number] 03/17/2030 E0.8P8 / / [id number] Description:RIGHT FEMORAL AR DANII Patch Vsc 8x.8cm Xenosure Bvn Pricrd Tiss Strl Rpl [id number] - [id number] Implanted:Qty : 1 on 12/13/2024 by Raulito Dang MD at [facility] Graft Right: Arterial [employer] [id number] 03/17/2030 E0.8P8 / / [id number] Description:RIGHT FEMORAL AR DANII Procedures Procedure Name Priority Date/Time Associated Diagnosis Comments VASC ARTERIAL DOPPLER LOWER BILATERAL MULTI LEVEL/PVR Routine 01/31/2025 10:28 AM EDT 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) COLONOSCOPY 05/19/2020 9:35 AM EST HIGH RISK HPV W/DEJA Routine 03/23/2016 12:00 PM EDT from Last 3 Months or Most Recently Relevant to Health Maintenance Results * Vas art doppler lwr bilat mult lev/PVR (01/31/2025 10:28 AM EDT) Anatomical Region Laterality Modality Vascular Bilateral Ultrasound 01/31/2025 11:2 7 AM EDT Narrative 02/01/2025 12:32 PM EDT Previous: Previous lower extremity arterial physiological exam performed: 11/15/2024; Highest IVY: Right: 0.46/TBI 0.20; Left: 0.57/TBI 0.34.History of right iliofemoral endarterectomy and patch angioplasty on 12/13/2024. Right: Essentially normal PVR waveform contour at all cuff levels. Calf waveform augmentation noted. PT IVY is 1.17; DP IVY is 1.14. TBI is 0.77. Multiphasic with diastolic flow reversal common femoral, popliteal, PT and DP CW Doppler waveforms. Left: Moderately abnormal PVR waveform contour at all cuff levels. No calf waveform augmentation noted. PT IVY is 0.75; DP IVY is 0.74. TBI is 0.54. Monophasic common femoral, popliteal, PT and DP CW Doppler waveforms. Conclusions: RIGHT: Normal lower extremity arterial physiological examination at rest. LEFT: Multilevel arterial disease (common femoral artery or above with femoropopliteal and/or tibioperoneal); IVY consistent with mild arterial disease.When compared to previous report significant changes were noted. Procedure Note Rolf Crespo MD - 02/01/2025 Previous: Previous lower extremity arterial physiological exam performed:11/15/2024; Highest IVY: Right: 0.46/TBI 0.20; Left: 0.57/TBI 0.34.Historyof right iliofemoral endarterectomy and patch angioplasty on 12/13/2024. Right: Essentially normal PVR waveform contour at all cuff levels. Calfwaveform augmentation noted. PT IVY is 1.17; DP IVY is 1.14. TBI is 0.77.Multiphasic with diastolic flow reversal common femoral, popliteal, PT andDP CW Doppler waveforms. Left: Moderately abnormal PVR waveform contour at all cuff levels. No calfwaveform augmentation noted. PT IVY is 0.75; DP IVY is 0.74. TBI is 0.54.Monophasic common femoral, popliteal, PT and DP CW Doppler waveforms. Conclusions: RIGHT: Normal lower extremity arterial physiologicalexamination at rest. LEFT: Multilevel arterial disease (common femoralartery or above with femoropopliteal and/or tibioperoneal); IVY consistentwith mild arterial disease.When compared to previous report significant changes were noted. Raulito Dang MD CV VASCULAR ORDERABLES Final Result * Colonoscopy (05/19/2020 9:35 AM EST) 05/19/2020 9:35 AM EST [facility] CARDIOVASCULAR - 05/19/2020 9:59 AM EST [facility] Patient Name: Bernadine Fuentes Procedure Date No Time: 05/19/2020 CSN : [id number] Date of : 1965 Admit Type: Outpatient Age: 54 Room: [place] [address] Gender: Female Note Status: Finalized Attending MD: Martín Zhu DO Procedure: Colonoscopy Indications: Screening for colorectal malignant neoplasm Providers: Martín Zhu DO Medicines: Propofol per Anesthesia Complications: No immediate complications. Procedure: After I obtained informed consent, the scope was passed under direct vision. Throughout the procedure, the patient's blood pressure, pulse, and oxygen saturations were monitored continuously. The [employer] CF-190L # [id number] ADULT COLONOSCOPE was introduced through the anus and advanced to the cecum, identified by the appendiceal orifice, ileocecal valve and palpation. The colonoscopy was performed without difficulty. The patient tolerated the procedure well. The quality of the bowel preparation was good. Findings: Hemorrhoids were found on perianal exam. The colon (entire examined portion) appeared normal. Estimated Blood Loss: Estimated blood loss: none. Impression: - Hemorrhoids found on perianal exam. - The entire examined colon is normal. - No specimens collected. Recommendation: - Patient has a contact number available for emergencies. The signs and symptoms of potential delayed complications were discussed with the patient. Return to normal activities tomorrow. Written discharge instructions were provided to the patient. - Repeat colonoscopy in 10 years for screening purposes. - Return to my office PRN. Procedure Code(s): --- Professional --- G0121, Colorectal cancer screening; colonoscopy on individual not meeting criteria for high risk Diagnosis Code(s): --- Professional --- Z12.11, Encounter for screening for malignant neoplasm of colon K64.9, Unspecified hemorrhoids CPT copyright 2019 [employer]. All rights reserved. The codes documented in this report are preliminary and upon button breaker review may be revised to meet current compliance requirements. DO Martín Caballero DO 05/19/2020 9:59:18 AM Number of Addenda: 0 Note Initiated On: 05/19/2020 9:35 AM Procedure Note Martín Zhu DO - 05/19/2020 [facility] Patient Name: Bernadine Fuentes Procedure Date No Time: 05/19/2020 CSN : [id number] Date of : 1965 Admit Type: Outpatient Age: 54 Room: [place] [address] Gender: Female Note Status: Finalized Attending MD: Martín Zhu DO Procedure: Colonoscopy Indications: Screening for colorectal malignant neoplasm Providers: Martín Zhu DO Medicines: Propofol per Anesthesia Complications: No immediate complications. Procedure: After I obtained informed consent, the scope was passed under direct vision. Throughout theprocedure, the patient's blood pressure, pulse, and oxygen saturations were monitored continuously. [employer] CF-190L # [id number] ADULT COLONOSCOPE was introduced through the anus and advanced to the cecum,identified by the appendiceal orifice, ileocecal valve and palpation. The colonoscopy was performed without difficulty. The patient tolerated the procedurewell. The quality of the bowel preparation was good. Findings: Hemorrhoids were found on perianal exam. The colon (entire examined portion) appeared normal. Estimated Blood Loss: Estimated blood loss: none. Impression: - Hemorrhoids found on perianal exam. - The entire examined colon is normal. - No specimens collected. Recommendation: - Patient has a contact number available for emergencies. The signs and symptoms of potential delayed complications were discussed with thepatient. Return to normal activities tomorrow. Written discharge instructions were provided to thepatient. - Repeat colonoscopy in 10 years for screening purposes. - Return to my office PRN. Procedure Code(s): --- Professional --- G0121, Colorectal cancer screening; colonoscopy on individual not meeting criteria for high risk Diagnosis Code(s): --- Professional --- Z12.11, Encounter for screening for malignant neoplasm of colon K64.9, Unspecified hemorrhoids CPT copyright 2019 [employer]. All rights reserved. The codes documented in this report are preliminary and upon button breaker reviewmay be revised to meet current compliance requirements. DO Martín Caballero DO 05/19/2020 9:59:18 AM Number of Addenda: 0 Note Initiated On: 05/19/2020 9:35 AM Martín Zhu DO GI PROCEDURE ORDERABLES Fin al Result PM CARDIOVASCULAR * High risk HPV w/deja (03/23/2016 12:00 PM EDT) Hpv specimen type ThinPrep 03/25/2016 8:46 PM EDT [facility] Hpv 16 Negative Negative 03/29/2016 1:46 PM EDT [facility] Hpv 18 Negative Negative 03/29/2016 1:46 PM EDT [facility] Other high risk hpv Negative Negative 03/29/2016 1:46 PM EDT [facility] Comment: HPV types 31,33,35,39,45,52,56,58,59,66 and 68 DNA were undetectable. 03/23/2016 12:0 0 PM EDT 03/25/2016 8:45 PM EDT us Nubia Wilder ELECTRICAL RESEARCH ENGINEER-CNM LAB BLOOD ORDERABLES Fi nal Result [facility] [address] [place] [address], [place] [facility] from Last 3 Months or Most Recently Relevant to Health Maintenance Insurance ANTH Care Teams Nurse Practitioner Home Assessments Relationship Specialty Start Date End Date [place] [address] [place] [address] PCP - General Family Medicine 04/26/18
--- OUTSIDE RECORDS SUMMARY | 2025-03-22 10:06 | XMS_ITS | Encounter Summary ---
Author Organization [facility] Address [address] [place] [address] Care Team Providers Care Engraving Press Operator Name Role Phone Ruth Rose MD Primary Care Provider [phone] Ruth Rose MD Unavailable Raya Snowden LPN Unavailable Encounter Details Date Type Department Care Team (Late Contact Info) Description 07/27/2024 Abstract [facility] [place] [address] [facility] [address] [place] [phone] Ruth Rose MD [address] [facility] [address] [place] [address] Social History Tobacco Use Types Packs/Day Years [...] [place] [address] [place] [address] Madhavi March, AINSLEY [address] [place] [address] documented as of this encounter Visit Diagnoses Not on filedocumented in this encounter Care Teams Engraving Press Operator Relationship Specialty Start Date End Date Ruth Rose MD [address] [facility] [address] [place] [address] PCP - General Family Medicine 10/26/22 Ruth Rose MD [address] [facility] [address] [place] [address] [facility] 12/18/24 Raya Snowden LPN [address] [facility] [address] [place] [address] 03/13/25 03/18/25 documented as of this encounter
--- OUTSIDE RECORDS SUMMARY | 2025-03-22 10:06 | XMS_ITS | Encounter Summary ---
Author Organization [facility] Address [address] [place] [address] Care Team Providers Care Support Merchandiser Name Role Phone Ruth Rose MD Primary Care Provider [phone] Ruth Rose MD Unavailable Raya Snowden LPN Unavailable Encounter Details Date Type Department Care Team (Late Contact Info) Description 11/29/2024 Abstract [facility] [place] [address] [facility] [address] [place] [phone] Ruth Rose MD [address] [facility] [address] [place] [address] Social History Tobacco Use Types Packs/Day Years Used Date Smoking Tobacco: Former Cigarettes Q uit: 2018 Smokeless Tobacco: Never Alcohol Use Standard Drinks/Week Comments Not Currently 3 (1 standard drink = 0.6 oz pur e alcohol) PHQ-2 Answer Date Recorded Patient Health Questionnaire-2 Score 0 11/05/2024 Comments Unknown Sex and Gender Information Value [...] 10:00 AM EDT Procedure Visit [facility] [place] [facility] [address] [facility] [address] [place] [address] Madhavi March, MECHANICAL PENCILS ASSEMBLER [address] [facility] [address] [place] [address] documented as of this encounter Visit Diagnoses Not on filedocumented in this encounter Care Teams Support Merchandiser Relationship Specialty Start Date End Date Ruth Roes MD [address] [facility] [address] [place] [address] PCP - General Family Medicine 10/26/22 Ruth Rose MD [address] [facility] [address] [place] [address] [facility] 12/18/24 Raya Snowden LPN [address] [facility] [address] [place] [address] 03/13/25 03/18/25 documented as of this encounter
--- OUTSIDE RECORDS SUMMARY | 2025-03-22 10:06 | XMS_ITS | Encounter Summary ---
Author Organization [facility] Address [address] [place] [address] Care Team Providers Care Commercial Airline Pilot Name Role Phone Ruth Rodriguez MD Primary Care Provider Ruth Rodriguez MD Unavailable Raya Snowden LPN Unavailable Encounter Details Date Type Department Care Team (Late Contact Info) Description 12/06/2023 Clinisync Result Encounter [facility] External Department Unsolicited Eliz Ayon NP [address] [facility] 110 [place], [place] [address] Social History Tobacco Use Types Packs/Day Years Used Date Smoking Tobacco: Former Cigarettes Q uit: 2018 Smokeless Tobacco: Never Alcohol Use Standard Drinks/Week Comments Yes 3 (1 standard drink = 0.6 oz [...] 03/27/2025 10:00 AM EDT Procedure Visit [facility] [place] Bad[place] Med[facility]y [address] [facility] 110 [place] [phone] Madhavi March NP [address] [facility] 110 [place], [place] [id number] (work) documented as of this encounter Procedures Procedure Name Priority Date/Time Associated Diagnosis Comments US RIGHT UPPER QUADRANT 12/06/2023 9:40 AM EDT documented in this encounter Results * US RIGHT UPPER QUADRANT (12/06/2023 9:40 AM EDT) Anatomical Region Laterality Modality Other 12/06/2023 9:40 AM EDT Narrative 12/06/2023 9:43 AM EDT [address] [address] Ultrasound Report Signed Patient: Bernadine Fuentes MR#: [id number] : 1965 Acct:[id number] Age/Sex: 58 / F ADM Date: 12/05/23 Loc: US Attending Dr: Eliz Ayon SEAT COVER CUTTER Ordering Physician: Eliz Ayon NP Date of Service: 12/05/23 Procedure(s): US right upper quadrant Accession Number(s): [id number] cc: RUTH RODRIGUEZ ; Eliz Ayon NP [address] [address] Patient Name: BERNADINE FUENTES MRN: [id number] date: 1965 Sex: F Assigned Patient Location: Current Patient Location: Accession/Order Number: [id number] Exam Date: 12/05/2023 10:33 Report Date: 12/06/2023 09:40 At the request of: ELIZ AYON Procedure: US right upper quadrant EXAMINATION: US right upper quadrant HISTORY: Liver Disease K76.9, Elevated Liver Enzymes R74.8 COMPARISON: No relevant comparison available. TECHNIQUE: Transabdominal evaluation of the right upper quadrant. FINDINGS: LIVER: Heterogeneous, nodular liver suggestive of cirrhosis. Small amount of adjacent free fluid. PORTAL VEIN: Duplex Doppler demonstrates normal hepatopetal flow pattern with flow velocity averaging 29 cm/s. GALLBLADDER: Contains a 2.2 x 2.0 x 1.8 cm noncalcified structure within the fundus. No appreciable internal blood flow on color Doppler. No wall thickening or free fluid. BILIARY: No abnormal dilation or stones. Common bile duct diameter is within normal limits. PANCREASE: No visible mass, abnormal atrophy, or duct dilation. KIDNEY: No hydronephrosis. No visible mass or stones. Size: 10.6 x 5.4 x 5.0 cm. US/US right upper quadrant IMPRESSION: 1. Heterogeneous nodular liver and small amount of ascites suggestive of cirrhosis. 2. Nonspecific structure within gallbladder 2.2 cm in size and no appreciable internal blood flow. This is nonspecific but consideration is given to a large sludge ball, hypovascular mass, and/or polyp. Follow-up ultrasound evaluation of gallbladder in one-2 weeks is recommended to see if a sludge ball has cleared or this represents persistent soft tissue/mass. Electronically authenticated by: OSWALDO STANLEY Date: 12/06/2023 09:40 Dictated By: Oswaldo Stanley M.D. Signed By: 12/06/23942 DD/ 9 TD/TT: Chair Car Driver: Procedure Note Radiology, Radiologist, MD - 12/06/2023 [place] [address] Ultrasound Report Signed Patient: Bernadine Fuentes SMR#: [id number] : 1965Acct:[id number] Age/Sex: 58 / FADM Date: 12/05/23 Loc: US Attending Dr: Eliz Ayon NP Ordering Physician: Eliz Ayon NP Date of Service: 12/05/23 Procedure(s): US right upper quadrant Accession Number(s): [id number] cc: RUTH RODRIGUEZ ; Eliz Ayon NP [address] [place] [id number] Patient Name: BERNADINE FUENTES MRN: [id number] date: 1965 Sex: F Assigned Patient Location: US Current Patient Location: Accession/Order Number: [id number] Exam Date: 12/05/2023 10:33 Report Date: 12/06/2023 09:40 At the request of: ELIZ AYON Procedure: US right upper quadrant EXAMINATION: US right upper quadrant HISTORY: Liver Disease K76.9, Elevated Liver Enzymes R74.8 COMPARISON: No relevant comparison available. TECHNIQUE: Transabdominal evaluation of the right upper quadrant. FINDINGS: LIVER: Heterogeneous, nodular liver suggestive of cirrhosis. Small amountof adjacent free fluid. PORTAL VEIN: Duplex Doppler demonstrates normal hepatopetal flow patternwith flow velocity averaging 29 cm/s. GALLBLADDER: Contains a 2.2 x 2.0 x 1.8 cm noncalcified structure withinthe fundus. No appreciable internal blood flow on color Doppler. No wall thickening or free fluid. BILIARY: No abnormal dilation or stones. Common bile duct diameter iswithin normal limits. PANCREASE: No visible mass, abnormal atrophy, or duct dilation. KIDNEY: No hydronephrosis. No visible mass or stones. Size: 10.6 x 5.4 x5.0 cm. US/US right upper quadrant IMPRESSION: 1. Heterogeneous nodular liver and small amount of ascites suggestive of cirrhosis. 2. Nonspecific structure within gallbladder 2.2 cm in size and noappreciable internal blood flow. This is nonspecific but consideration is given to alarge sludge ball, hypovascular mass, and/or polyp. Follow-up ultrasoundevaluation of gallbladder in one-2 weeks is recommended to see if a sludge ball has cleared or this represents persistent soft tissue/mass. Electronically authenticated by: OSWALDO STANLEY Date: 12/06/2023 09:40 Dictated By: Oswaldo Stanley M.D. Signed By:12/06/2343 DD/ TD/TT: Chair Car Driver: Eliz Ayon NP [facility] Final Result documented in this encounter Visit Diagnoses Not on filedocumented in this encounter Care Teams Commercial Airline Pilot Relationship Specialty Start Date End Date Ruth Rodriguez MD [address] [address] PCP - General Family Medicine 10/26/22 Ruth Rodriguez MD [address] [address] PCP - [place] Commercial 12/18/24 Raya Snowden LPN [address] [address] 03/13/25 03/18/25 documented as of this encounter
--- OUTSIDE RECORDS SUMMARY | 2025-03-22 10:06 | XMS_ITS | Encounter Summary ---
Author Organization [facility] Address [address] [place] [address] Care Team Providers Care Plasma Center Technician Name Role Phone Ruth Rose MD Primary Care Provider Ruth Rose MD Unavailable Raya Snowden LPN Unavailable Encounter Details Date Type Department Care Team (Late Contact Info) Description 02/07/2025 Abstract [facility] [place] [address] [facility] 110 [place] [address] Ruth Rose MD 112 [place] [facility] 110 [place] [address] Social History Tobacco Use Types Packs/Day Years [...] AM EDT Procedure Visit [facility] [place] [facility] [address] [facility] 110 [place] [address] Madhavi March, COLLIERY CLERK [address] [email or web address] 110 [place] [address] documented as of this encounter Visit Diagnoses Not on filedocumented in this encounter Care Teams Plasma Center Technician Relationship Specialty Start Date End Date Ruth Rose MD [address] [email or web address] 110 [place] [address] PCP - General Family Medicine 10/26/22 Ruth Rose MD [address] [email or web address] [address] [place] [address] [facility] 12/18/24 Raya Snowden LPN [address] [email or web address] 110 [place] [address] 03/13/25 03/18/25 documented as of this encounter
--- OUTSIDE RECORDS SUMMARY | 2025-03-22 10:06 | XMS_ITS | Encounter Summary ---
Author Organization [facility] Address [address] [place] [address] Care Team Providers Care Screw Driver Operator Name Role Phone Ruth Rose MD Primary Care Provider [phone] Ruth Rose MD Unavailable Raya Snowden LPN Unavailable Encounter Details Date Type Department Care Team (Late Contact Info) Description 11/06/2024 Abstract [facility] [place] [address] [facility] 110 [place] [address] Ruth Rose MD [address] [facility] 110 [place] [address] Social History Tobacco Use Types Packs/Day Years [...] Upcoming Encounters Date Type Department Care Team ([facility] Contact Info) Description 03/27/2025 10:00 AM EDT Procedure Visit [facility] [place] [facility] [address] [facility] 110 [place] [address] Madhavi March, COMBINATION WELDER APPRENTICE [address] [facility] 110 [place] [address] documented as of this encounter Visit Diagnoses Not on filedocumented in this encounter Care Teams Screw Driver Operator Relationship Specialty Start Date End Date Ruth Rose MD [address] [facility] 110 [place] [address] PCP - General Family Medicine 10/26/22 Ruth Rose MD [address] [facility] 110 [place] [address] [facility] 12/18/24 Raya Snowden LPN [address] [facility] 110 [place] [address] 03/13/25 03/18/25 documented as of this encounter
--- OUTSIDE RECORDS SUMMARY | 2025-03-22 10:06 | XMS_ITS | Encounter Summary ---
Author Organization [facility] Address [address] [place] [address] Care Team Providers Care Vacuum Furnace Operator Name Role Phone Ruth Rose MD Primary Care Provider Ruth Rose MD Unavailable Raya Snowden LPN Unavailable Encounter Details Date Type Department Care Team (Late Contact Info) Description 03/03/2023 Abstract [facility] [place] [address] [facility] 110 [place] [phone] Ruth Rose MD [address] [facility] 110 [place] [address] Social History Tobacco Use Types Packs/Day Years [...] Visit [facility] [place] [address] [facility] 110 [place] [phone] Madhavi March, PLASTER MOLDER [address] [facility] 110 [place] [address] documented as of this encounter Visit Diagnoses Not on filedocumented in this encounter Care Teams Vacuum Furnace Operator Relationship Specialty Start Date End Date Ruth Rose MD [address] [facility] 110 [place] [address] PCP - General Family Medicine 10/26/22 Ruth Rose MD [address] [facility] 110 [place] [address] PCP - [place] Commercial 12/18/24 Raya Snowden LPN [address] [facility] 110 [place] [address] 03/13/25 03/18/25 documented as of this encounter
--- OUTSIDE RECORDS SUMMARY | 2025-03-22 10:06 | XMS_ITS ---
Author Organization [facility] Address [address] [place] [address] Care Team Providers Care Postpartum Nurse Name Role Phone Ruth Rose MD Primary Care Provider [phone] Ruth Rose MD Unavailable Chronic Care Management (CCM) Status:Declined (Declined) Start date:03/13/2025 Enrollment reason:Identified as high-risk End date:03/18/2025 Decline reason:Uninterested Continued Care and Services Coordination
--- OUTSIDE RECORDS SUMMARY | 2025-03-22 10:06 | XMS_ITS | Encounter Summary ---
Author Organization [facility] Address [address] [place] [address] Care Team Providers Care Donor Relations Manager Name Role Phone Ruth Rodriguez MD Primary Care Provider Ruth Rodriguez MD Unavailable Raya Snowden LPN Unavailable Encounter Details Date Type Department Care Team (Late Contact Info) Description 01/11/2024 Clinisync Result Encounter NOMS External Department Unsolicited Eliz Ayon NP [address] [facility] 110 [place], [place] [phone] Social History Tobacco Use Types Packs/Day Years [...] [facility] [place] Medibeny [address] [facility] 110 [place] [phone] Madhavi March NP [address] [facility] 110 [place], [place] [phone] (work) documented as of this encounter Procedures Procedure Name Priority Date/Time Associated Diagnosis Comments US RIGHT UPPER QUADRANT 01/11/2024 11:04 AM EDT documented in this encounter Results * US RIGHT UPPER QUADRANT (01/11/2024 11:04 AM EDT) Anatomical Region Laterality Modality Other 01/11/2024 11:0 4 AM EDT Narrative 01/11/2024 11:06 [place] [address] Ultrasound Report Signed Patient: BERNADINE FUENTES MR#: [id number] : 1965 Acct:[id number] Age/Sex: 58 / F ADM Date: 01/11/24 Loc: US Attending Dr: Eliz Ayon FRUIT THINNER MACHINE OPERATOR Ordering Physician: Eliz Ayon NP Date of Service: 01/11/24 Procedure(s): US right upper quadrant Accession Number(s): [id number] cc: RUTH RODRIGUEZ ; Eliz Ayon NP [place] [id number] Patient Name: BERNADINE FUENTES MRN: [id number] date: 1965 Sex: F Assigned Patient Location: US Current Patient Location: US Accession/Order Number: [id number] Exam Date: 01/11/2024 09:55 Report Date: 01/11/2024 11:04 At the request of: ELIZ AYON Procedure: US right upper quadrant EXAM: US right upper quadrant HISTORY: Gallbladder Sludge K82.8 COMPARISON: 12/05/2023 TECHNIQUE: Transabdominal imaging FINDINGS: The liver is small in size measuring 15.3 cm in length, heterogeneous echogenic echotexture with nodular contour. Hepatopedal flow in the main portal vein with a velocity of 26 cm/s. The gallbladder wall measures 3.2 mm, mildly thickened. Negative sonographic Pettit sign. The common bile duct measures 4.6 mm. Echogenic material is identified within the gallbladder lumen without definitive color flow The visualized pancreas is normal The right kidney is normal measuring 12.3 x 6.9 x 5.3 cm Moderate ascites US/US right upper quadrant IMPRESSION: Echogenic nodular small liver consistent with cirrhosis with associated ascites Indeterminate soft tissue tissue echogenicity within the gallbladder lumen. No color flow to suggest a mass Electronically authenticated by: JIN SIBLEY Date: 01/11/2024 11:04 Dictated By: Jin Sibley M.D. Signed By: 01/11/24 1106 DD/ 110 TD/TT: Wool And Pelt Grader: Procedure Note Radiology, Radiologist, MD - 01/11/2024 [place] [address] Ultrasound Report Signed Patient: BERNADINE FUENTES SMR#: [id number] : 1965Acct:[id number] Age/Sex: 58 / FADM Date: 01/11/24 Loc: US Attending Dr: Eliz Ayon FRUIT THINNER MACHINE OPERATOR Ordering Physician: Eliz Ayon NP Date of Service: 01/11/24 Procedure(s): US right upper quadrant Accession Number(s): [id number] cc: RUTH RODRIGUEZ ; Eliz Ayon NP [address] [place] [id number] Patient Name: BERNADINE FUENTES MRN: [id number] date: 1965 Sex: F Assigned Patient Location: US Current Patient Location: US Accession/Order Number: [id number] Exam Date: 01/11/2024 09:55 Report Date: 01/11/2024 11:04 At the request of: ELIZ AYON Procedure: US right upper quadrant EXAM: US right upper quadrant HISTORY: Gallbladder Sludge K82.8 COMPARISON: 12/05/2023 TECHNIQUE: Transabdominal imaging FINDINGS: The liver is small in size measuring 15.3 cm in length, heterogeneous echogenic echotexture with nodular contour. Hepatopedal flow in the main portal vein with a velocity of 26 cm/s. The gallbladder wall measures 3.2 mm, mildly thickened. Negativesonographic Pettit sign. The common bile duct measures 4.6 mm. Echogenic material is identified within the gallbladder lumen without definitive color flow The visualized pancreas is normal The right kidney is normal measuring 12.3 x 6.9 x 5.3 cm Moderate ascites US/US right upper quadrant IMPRESSION: Echogenic nodular small liver consistent with cirrhosis with associated ascites Indeterminate soft tissue tissue echogenicity within the gallbladderlumen. No color flow to suggest a mass Electronically authenticated by: JIN SIBLEY Date: 01/11/2024 11:04 Dictated By: Jin Sibley M.D. Signed By:01/11/24 1106 DD/ 1104 TD/TT: Wool And Pelt Grader: us Eliz Ayon FRUIT THINNER MACHINE OPERATOR [facility] Final Result documented in this encounter Visit Diagnoses Not on filedocumented in this encounter Care Teams Donor Relations Manager Relationship Specialty Start Date End Date Ruth Rodriguez MD [address] [facility] 110 [place] [address] PCP - General Family Medicine 10/26/22 Ruth Rodriguez MD [address] [facility] 110 [place] [address] PCP - [place] Commercial 12/18/24 Raya Snowden LPN [address] [facility] 110 [place] [address] 03/13/25 03/18/25 documented as of this encounter
--- OUTSIDE RECORDS SUMMARY | 2025-03-22 10:06 | XMS_ITS | Encounter Summary ---
Author Organization [facility] Address [address] [place] [address] Care Team Providers Care Quality Process Auditor Name Role Phone Ruth Rose MD Primary Care Provider [phone] Ruth Rose MD Unavailable Raya Snowden LPN Unavailable Encounter Details Date Type Department Care Team (Late Contact Info) Description 08/04/2023 Abstract [facility] [place] [address] [facility] 110 [place] [phone] Ruth Rose MD 112 [place] [facility] 110 [place] [address] Social History Tobacco Use Types Packs/Day Years [...] Visit N[facility]S [place] [address] [facility] 110 [place] [phone] Madhavi March, RENOVATION PLANT SUPERVISOR [address] [facility] 110 [place] [address] documented as of this encounter Visit Diagnoses Not on filedocumented in this encounter Care Teams Quality Process Auditor Relationship Specialty Start Date End Date Ruth Rose MD [address] [facility] 110 [place] [address] PCP - General Family Medicine 10/26/22 Ruth Rose MD [address] [facility] 110 [place] [address] PCP - [place] Commercial 12/18/24 Raya Snowden LPN [address] [facility] 110 [place] [address] 03/13/25 03/18/25 documented as of this encounter
--- OUTSIDE RECORDS SUMMARY | 2025-03-22 10:06 | XMS_ITS | Encounter Summary ---
Author Organization [facility] Address [address] [place] [address] Care Team Providers Care Aerial Installer Name Role Phone Ruth Rose MD Primary Care Provider [phone] Ruth Rose MD Unavailable Raya Snowden LPN Unavailable Encounter Details Date Type Department Care Team (Late Contact Info) Description 11/01/2024 Abstract [facility] [place] [address] [facility] 110 [place] [phone] Ruth Rose MD [address] [facility] 110 [place] [address] Social History Tobacco Use Types Packs/Day Years [...] Upcoming Encounters Date Type Department Care Team ([facility] Contact Info) Description 03/27/2025 10:00 AM EDT Procedure Visit [facility] [place] [facility] [address] [facility] 110 [place] [address] Madhavi March, FREELANCE WEB DESIGNER [address] [facility] 110 [place] [address] documented as of this encounter Visit Diagnoses Not on filedocumented in this encounter Care Teams Aerial Installer Relationship Specialty Start Date End Date Ruth Rose MD [address] [facility] [address] [place] [address] PCP - General Family Medicine 10/26/22 Ruth Rose MD [address] [facility] [address] [place] [address] [facility] 12/18/24 Raya Snowden LPN [address] [facility] 110 [place] [address] 03/13/25 03/18/25 documented as of this encounter
--- OUTSIDE RECORDS SUMMARY | 2025-03-22 10:06 | XMS_ITS | Encounter Summary ---
Author Organization [facility] Address [address] [place] [address] Care Team Providers Care Tower Excavator Operator Name Role Phone Ruth Rose MD Primary Care Provider [phone] Ruth Rose MD Unavailable Raya Snowden LPN Unavailable Encounter Details Date Type Department Care Team (Late st Contact Info) Description 03/18/2025 Patient Outreach [facility] [address] [place] [address] Raya Snowden LPN [address] [facility] 110 [place], [place] [address] Social History Tobacco Use Types Packs/Day Years [...] PM EDT documented as of this encounter Progress Notes * Raya Snowden LPN - 03/18/2025 12:33 PM EDT Spoke to pt about CCM while pt and pts spouse on speaker phone. Pt and pts spouse do not feel they could use this service at this time. Pt and pts spouse states she is doing much better since surgery. I let pt and pts spouse know if pt changes mind or feels CCM services could be helpful to call theoffice and ask for technical proposal writer. documented in this encounter Plan of Treatment Upcoming Encounters Date Type Department Care Team (Late st Contact Info) Description 03/27/2025 10:00 AM EDT Procedure Visit [facility] [place] [address] [facility] [address] [place] [address] Madhavi March NP [address] [facility] [address] [place] [address] documented as of this encounter Visit Diagnoses Diagnosis Alcoholic hepatitis without ascites (HCC)- Primary Elevated BP without diagnosis of hypertension documented in this encounter Care Teams Tower Excavator Operator Relationship Specialty Start Date End Date Ruth Rose MD [address] [facility] 110 [place] [address] PCP - General Family Medicine 10/26/22 Ruth Rose MD [address] [facility] [address] [place] [address] PCP - [place] Commercial 12/18/24 Raya Snowden LPN [address] [facility] [address] [place] [address] 03/13/25 03/18/25 documented as of this encounter
--- OUTSIDE RECORDS SUMMARY | 2025-03-22 10:06 | XMS_ITS | Encounter Summary ---
Author Organization [facility] Address [address] [place] [address] Care Team Providers Care Shop Laborer Name Role Phone Ruth Rose MD Primary Care Provider [phone] Ruth Rose MD Unavailable Raya Snowden LPN Unavailable Encounter Details Date Type Department Care Team (Late Contact Info) Description 05/01/2024 Abstract [facility] [place] [address] [facility] 110 [place] [phone] Ruth Rose MD [address] [facility] 110 [place] [address] Social History Tobacco Use Types Packs/Day Years [...] 10:00 AM EDT Procedure Visit [facility] [place] [address] [facility] [address] [place] [address] aMdhavi March, AINSLEY [address] [facility] [address] [place] [address] documented as of this encounter Visit Diagnoses Not on filedocumented in this encounter Care Teams Shop Laborer Relationship Specialty Start Date End Date Ruth Rose MD [address] [facility] 110 [place] [address] PCP - General Family Medicine 10/26/22 Ruth Rose MD [address] [facility] 110 [place] [address] [facility] 12/18/24 Raya Snowden LPN [address] [facility] 110 [place] [address] 03/13/25 03/18/25 documented as of this encounter
--- OUTSIDE RECORDS SUMMARY | 2025-03-22 10:06 | XMS_ITS | Encounter Summary ---
Author Organization [facility] Address [address] [place] [address] Care Team Providers Care Disk Sander Name Role Phone Ruth Rose MD Primary Care Provider Ruth Rose MD Unavailable Raya Snowden LPN Unavailable Encounter Details Date Type Department Care Team (Late Contact Info) Description 05/01/2024 Abstract [facility] [place] [address] [facility] 110 [place] [phone] Ruth Rose MD [address] [facility] 110 [place] [address] Social History Tobacco Use Types Packs/Day Years [...] Janusz Santamariae [address] [place] [address] Madhavi March, AINSLEY [address] [place] [address] documented as of this encounter Visit Diagnoses Not on filedocumented in this encounter Care Teams Disk Sander Relationship Specialty Start Date End Date Ruth Rose MD [address] [facility] 110 [place] [address] PCP - General Family Medicine 10/26/22 Ruth Rose MD [address] [facility] 110 [place] [address] [facility] 12/18/24 Raya Snowden LPN [address] [facility] 110 [place] [address] 03/13/25 03/18/25 documented as of this encounter
--- OUTSIDE RECORDS SUMMARY | 2025-03-22 10:06 | XMS_ITS | Clinical Summary ---
Author Organization [facility] Address [address] [place] [address] Care Team Providers Care Systems Navigator Name Role Phone Ruth Rodriguez MD Primary Care Provider [phone] Ruth Rodriguez MD Unavailable Allergies No known active allergies Medications calcium citrate 1040 MG tablet Take 2 tablets by mouth in the morning and 2 tablets in the evening and 2 tablets before bedtime. Active cholecalciferol (Vitamin D-3) 50 MCG (1999 UT) capsule Take 1 capsule by mouth 1 (one) time each day at the same time. Active cyanocobalamin (Vitamin B-12) 100 MCG tablet Take 1 tablet by mouth in the morning. Active docusate sodium (Colace) 100 MG capsule Take 1 capsule by mouth Daily as needed for constipation . Active Multiple Vitamin (Multi Vitamin) tablet Take 1 tablet by mouth 1 (one) time each day at the same time. Active omega-3 (Fish Oil) 1000 MG capsule Take 1 capsule by mouth 1 (one) time each day at the same time. Active Glucose Blood (Blood Glucose Test Strips 333) stripIndication s:Impaired glucose tolerance 1 strip by In Vitro route Daily 100 strip 3 11/21/2023 Active carvedilol (Coreg) 3.125 MG tablet Take 3.125 mg by mouth in the morning and 3.125 mg before bedtime. 05/29/2024 Active furosemide (Lasix) 40 MG tablet Take 40 mg by mouth Daily 07/21/2024 Active spironolactone (Aldactone) 100 MG tablet Take 100 mg by mouth Daily 07/21/2024 Active Lancets 30G miscIndications :Diabetes mellitus due to underlying condition with diabetic nephropathy, without long-term current use of insulin (HCC) 1 each Daily 100 each 3 08/02/2024 Active metFORMIN (Glucophage) 500 MG tabletIndicatio ns:Diabetes mellitus due to underlying condition with diabetic nephropathy, without long-term current use of insulin (HCC) Take 1 tablet (500 mg) by mouth in the morning and 1 tablet (500 mg) in the evening. Take with meals. 60 tablet 11 10/25/2024 Active aspirin 81 MG chewable tablet CHEW 1 TABLET AND SWALLOW IN THE MORNING 11/01/2024 Active atorvastatin (Lipitor) 40 MG tablet Take 40 mg by mouth in the morning. 11/01/2024 Active Active Problems Problem Noted Date Diagnosed Date Epistaxis, recurrent 11/05/2024 Assessment & Plan (11/05/2024 2:40 PM EDT): Refer to [facility] [place] [facility] [place] Benign essential hypertension 11/05/2024 Assessment & Plan (11/05/2024 2:26 PM EDT): Our specific goals, for your hypertension, is to keep your blood pressure less than 140/90, and the importance of weight control. We made recommendations on how to control your blood pressure, and minimize your risk of these copmplications. We also discussed your current barriers to a healthy living and importance of healthy diet and exercise. Prior to your visit today we have reviewed your chart and formed a plan to assist with providing you the best possible care. We reviewed the possible complications of hypertension including, stroke, heart failure and kidney impairment. In addition, we discussed your medications, the importance of taking them as prescribed. DASH diet handouts Annual physical exam 11/05/2024 Assessment & Plan (11/05/2024 2:27 PM EDT): Colonoscopy every 10 years or Cologuard every 3 years ages 50-75 Flu Vaccine yearly Pneumovax and Prevnar Mammo yearly for women and PSA yearly for men Labs/Screening yearly to rule out Diabetes, Chronic Kidney disease and liver disease Hepatitis Screen forat risk populations Shingles vaccine after 65 if indicated Tetanus Vaccine every 10 years Lipids yearly under the age of 75 If Smoking history: one time CT scan of chest and Ultrasound of Aorta to screen for Anuerysm Pain in both lower extremities 11/05/2024 Assessment & Plan (11/05/2024 2:45 PM EDT): 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 Osborn on Tuesday Blister (nonthermal), right foot, sequela 2024 Alcoholic cirrhosis of liver with ascites 2023 Assessment & Plan (11/05/2024 2:44 PM EDT): Sees Dr. Ibarra Generalized edema 01/31/2024 Elevated liver enzymes 01/31/2024 Internal hemorrhoids 03/01/2023 Greater trochanteric pain syndrome 03/01/2023 Inflammation of sacroiliac joint 03/01/2023 Post-traumatic osteoarthritis 03/01/2023 Absolute anemia 02/28/2023 Calculus of gallbladder with chronic cholecystitis without obstruction 02/28/2023 Decreased estrogen level 02/28/2023 Duodenal ulcer 02/28/2023 Elevated BP without diagnosis of hypertension Hypertriglyceridemia 02/28/2023 Assessment & Plan (11/05/2024 2:27 PM EDT): This is a chronic medical condition that is stable since last assessment. No changes in treatment are suggested at this time. Continue Current meds. Labs ordered Impaired glucose tolerance 02/28/2023 Assessment & Plan (11/05/2024 2:48 PM EDT): No Tobacco use Follow ADA 1800 diet low carbohydrate Continue Med Compliance Goal LDL less than 100 Goal BP 130/80 Goal HgbA1c < 7.0% Monitor Feet, monitor for infection Needs Exercise Yearly eye exams Prior to your visit today we reviewed your chart and outlined testing and treatment needed for your care. Reviewed poissble complications of diabetes including, loss of vision, kidney failure and increased risk of heart attacks and stroke. We made recommendations on how to control your blood sugars, and minimize your risk of these complications. We discussed your current barriers to a healthy living and importance of healthy diet and exercise. Alcoholic hepatitis without ascites 02/28/2023 Lumbar degenerative disc disease 02/28/2023 Macrocytosis 02/28/2023 Osteoarthritis of knee 02/28/2023 Osteoporosis 02/28/2023 Pure hypercholesterolemia 02/28/2023 Scoliosis 02/28/2023 Closed comminuted intra-dany cular fracture of distal femur, right, with routine healing, subsequent encounter 03/30/2022 Iron deficiency anemia 10/11/2017 Liver disease 10/11/2017 Macrocytosis without anemia 05/17/2017 Abnormal laboratory test result 05/04/2017 History of iron deficiency anemia 04/26/2017 Electrocardiogram abnormal 11/29/2013 Hemorrhage of rectum and anus 08/27/2013 Bleeding internal hemorrhoids 08/13/2013 Closed fracture of acetabulum 08/13/2013 Seizure 08/13/2013 Epilepsy 08/01/2013 Disorder of cardiovascular system 02/20/2013 Closed fracture of upper end of tibia 11/27/2012 Overview (03/01/2023): RIGHT TIBIAL PLATEAU RIGHT TIBIAL PLATEAU FRACTURE Closed intertrochanteric fracture 11/27/2012 Overview (03/01/2023): RIGHT Resolved Problems Problem Noted Date Diagnosed Date Resolved Date Current drinker of alcohol 05/17/2017 0 01/31/2024 Encounters Date Type Department Care Team Description 03/18/[address] [facility] [address] Medicine [address] [facility] [address] [place] [address] Ruth Rodriguez MD 03/18/2025 Patient Outreach [facility] [address] [place] [address] Raya Snowden LPN 02/07/2025 Abstract [facility] [address] [place] [address] [place] [address] Ruth Rodriguez MD from Last 3 Months Immunizations Immunization Administration Dates Next Due Influenza, Injectable, MDCK, preservative free 0 08/03/2024,04/19/2019 Influenza, injectable, MDCK, preservative free, quadrivalent 05/05/2022 Influenza, injectable, quadrivalent, preservativ e free 04/03/2020,05/05/2018 Influenza, seasonal, injectable 06/10/2021,07/06 Influenza, seasonal, injectable, preservative fr ee 08/03/2023,04/20/2015 Influenza, seasonal, intradermal, preservative f ree 04/14/2017 Zoster, Recombinant 08/06/2022,05/05/2022 Zoster, live 01/19/2016 Family History Relation Name Status Comments Daughter Alive 2 daughter Father Mother Son Alive 1 son Social History Tobacco Use Types Packs/Day Years Used Date Smoking Tobacco: Former Cigarettes Q uit: 2018 Smokeless Tobacco: Never Tobacco Cessation:Counseling Given: Not [...] Orientation Straight 12/08/2024 7: 23 PM EDT Last Filed Vital Signs Vital Sign Reading Time Taken Comments Blood Pressure 98/64 11/05/2024 2:15 PM EDT Pulse 81 11/05/2024 2:15 PM EDT Temperature - - Respiratory Rate 16 09/13/2024 9:35 AM EDT Oxygen Saturation 98% 11/05/2024 2:15 PM EDT Inhaled Oxygen Concentration - - Weight 62.6 kg (138 lb) 11/05/2024 2:15 PM EDT Height 162.6 cm (5' 4 ) 11/05/2024 2:15 PM EDT Body Mass Index 23.69 11/05/2024 2:15 PM EDT Plan of Treatment Upcoming Encounters Date Type Department Care Team (Late st Contact Info) Description 03/27/2025 10:00 AM EDT Procedure Visit [facility] 112 [facility] 110 [place] [address] Madhavi March, SOLDER TECHNICIAN 112 [facility] 110 [place] [address] Health Maintenance Due Date Last Done Comments CT Colonography 1965 FIT-DNA 1965 FIT 1965 FOBT 1965 Sigmoidoscopy 1965 Pap Smear 11/29/1984 Cervical Cancer Screening 11/29/1993 HPV/Cotest 11/29/1993 Diabetes: Retinopathy Screening 10/05/2024 Mammogram 12/27/2024 12/28/2023, 07/21, 07/30/2021, Additional history exists Diabetes: Hemoglobin A1C 02/05/2025 025, 11/17/2023, 03/01/2023, Additional history exists Influenza Vaccine (#1) 2025 5, 08/03/2023, 05/05/2022, Additional history exists Diabetes: Urine Protein Screening 11/05/2025 025, 11/17/2023 Colonoscopy 05/19/2030 05/19/2020, 04/22, 05/19/2020, Additional history exists Colorectal Cancer Screening 05/19/2030 Procedures Procedure Name Priority Date/Time Associated Diagnosis Comments MICROALBUMIN / CREATININE URINE RATIO Routine 11/05/2024 4:11 PM EDT Abnormal glucose tolerance test Annual physical exam POCT GLYCATED HEMOGLOBIN, TOTAL Routine 11/05/2024 2:27 PM EDT Abnormal glucose tolerance test MM TOMOSYNTHESIS SCREENING BI 12/28/2023 12:25 PM EDT COLOR FUNDUS PHOTOGRAPHY - OU - BOTH EYES Routine 10/05/2022 12:00 PM EDT COLONOSCOPY Routine 05/19/2020 12:00 PM EST from Last 3 Months or Most Recently Relevant to Health Maintenance Results * Microalbumin / creatinine urine ratio (11/05/2024 4:11 PM EDT) CREATININE, RANDOM URINE 117 20 - 275 mg/dL [facility] ALBUMIN, URINE 0.2 See Note: mg/dL [facility] Comment: Reference Range: Reference Range Not established ALBUMIN/CREATININE RATIO, RANDOM URINE 2 <30 mg/g creat [facility] Comment: The ADA defines abnormalities in albumin excretion as follows: Albuminuria Category Result (mg/g creatinine) Normal to Mildly increased <30 Moderately increased 30-299 Severely increased > OR = 300 The ADA recommends that at least two of three specimens collected within a 3-6 month period be abnormal before considering a patient to be within a diagnostic category. Urine Urine specimen obtained by clean catch procedure / Unknown 11/05/2024 4:11 PM EDT 11/05/2024 4:12 PM EDT Narrative [facility] - 11/06/2024 11:11 AM EDT SPLIT 11/05/2024 FROM [id number] Resulting Agency Comment Performing Organization Information Site ID: QPT Name: [facility] Address: [address] [place] [address], [address] [place] [phone] Director: James Landry MD us Ruth Rodriguez MD LAB URINE ORDERABLES Final Resul t Performing Organization Address City/State/[facility] Co de Phone Number [facility] * POCT Glycated hemoglobin, total (11/05/2024 2:27 PM EDT) Hemoglobin A1C 5.4 Blood 11/05/2024 2:27 PM EDT us Ruth Rodriguez MD POINT OF CARE TEST ENTER/EDIT OR DERABLES Final Result * MM TOMOSYNTHESIS SCREENING BI (12/28/2023 12:25 PM EDT) Anatomical Region Laterality Modality Other 12/28/2023 12:2 5 PM EDT Narrative 12/28/2023 12:26 [place] [address] Mammography Report Signed Patient: GARRETRASHADBERNADINE FULTON S MR#: [id number] : 1965 Acct:[id number] Age/Sex: 58 / F ADM Date: 12/28/23 Loc: MAMMO Attending Dr: RUTH RODRIGUEZ Ordering Physician: RUTH RODRIGUEZ Results: Date of Service: 12/28/23 Follow Up: Procedure(s): MM tomosynthesis screening BI Accession Number(s): [id number] cc: RUTH RODRIGUEZ Patient Name: BERNADINE FUENTES MR#: [id number] : 1965 Exam Date: 12/28/2023 Ordering Doctor: DR RUTH RODRIGUEZ M.D. RADIOLOGY REPORT PROCEDURE: MM TOMOSYNTHESIS SCREENING BI COMPARISON: MG MAMM SCREEN 3D ALEX CAD, 08/02/2022. INDICATIONS: Screening Calculator Name NCI Breast Cancer Risk Assessment Tool 5 Year Breast Cancer Risk Not Reported. Lifetime Breast Cancer Risk Not Reported. Personal Breast Cancer No Personal Ovarian Cancer No Treatments None Family Cancers None LOCATION: [facility] BREAST COMPOSITION: The breasts are extremely dense, which lowers the sensitivity of mammography. [...] PALPABLE LUMP SHOULD BE BIOPSIED. Dictated by: Herrera Burleson MD on 12/28/2023 at 12:24 Approved by: Herrera Burleson MD on 12/28/2023 at 12:25 Dictated By: Herrera Burleson M.D. Signed By: 12/28/23 1226 DD/ 1225 TD/TT: Mat Packer: Procedure Note Radiology, RadiologistMD - 12/28/2023 [place] [address] Mammography Report Signed Patient: BERNADINE FUENTES SMR#: [id number] : 1965Acct:[id number] Age/Sex: 58 / FADM Date: 12/28/23 Loc: MAMMO Attending Dr: RUTH RODRIGUEZ Ordering Physician: RUTH RODRIGUEZResults: Date of Service: 12/28/23Follow Up: Procedure(s): MM tomosynthesis screening BI Accession Number(s): [id number] cc: RUTH RODRIGUEZ Patient Name: BERNADINE FUENTES MR#: [id number] : 1965 Exam Date: 12/28/2023 Ordering Doctor: DR RUTH RODRIGUEZ M.D. RADIOLOGY REPORT PROCEDURE: MM TOMOSYNTHESIS SCREENING BI COMPARISON: MG MAMM SCREEN 3D ALEX CAD, 08/02/2022. INDICATIONS: Screening Calculator Name NCI Breast Cancer Risk Assessment Tool 5 Year Breast Cancer Risk Not Reported. Lifetime Breast Cancer Risk Not Reported. Personal Breast Cancer No Personal Ovarian Cancer No Treatments None Family Cancers None LOCATION: [facility] BREAST COMPOSITION: The breasts are extremely dense, which lowers the sensitivity of mammography. FINDINGS: DIAGNOSTIC CATEGORY 2--BENIGN FINDING. NO CHANGE FROM COMPARISON. Scattered benign-appearing calcifications are present. RIGHT BREAST: No significant suspicious finding. LEFT BREAST: No significant suspicious finding. RECOMMENDATIONS: ROUTINE MAMMOGRAM AND CLINICAL EVALUATION IN 12 MONTHS. PLEASE NOTE: A NORMAL MAMMOGRAM DOES NOT EXCLUDE THE POSSIBILITY OFBREAST CANCER. A CLINICALLY SUSPICIOUS PALPABLE LUMP SHOULD BE BIOPSIED. Dictated by: Herrera Burleson MD on 12/28/2023 at 12:24 Approved by: Herrera Burleson MD on 12/28/2023 at 12:25 Dictated By: Herrera Burleson M.D. Signed By:12/28/23 1226 DD/ 1225 TD/TT: Mat Packer: Ruth Rodriguez MD [facility] Final Result * Color Fundus Photography - OU - Both Eyes (10/05/2022 12:00 PM EDT) Anatomical Region Laterality Modality Head Fundus Photograp hy 10/05/2022 12:0 0 PM EDT Narrative 10/05/2022 12:00 PM EDT PERFORMED AT [facility] LOCATION:[id number] No retinopathy Procedure Note CONVERSION, GENERIC - 11/04/2022 PERFORMED AT [facility] LOCATION:[id number] No retinopathy Ruth Rodriguez MD OPHTH PHOTOGRAPHY Final Result * Colonoscopy (05/19/2020 12:00 PM EST) Anatomical Region Laterality Modality Endoscopy 05/19/2020 12:0 0 PM EST Narrative 05/19/2020 12:00 PM EST PERFORMED AT [facility] LOCATION:[id number] hemorrhoids Procedure Note CONVERSION, GENERIC - 11/03/2022 PERFORMED AT [facility] LOCATION:[id number] hemorrhoids Ruth Rodriguez MD ENDOSCOPY PROCEDURE ORDERABLES F inal Result from Last 3 Months or Most Recently Relevant to Health Maintenance Insurance BCBS Care Teams Systems Navigator Relationship Specialty Start Date End Date Ruth Rodriguez MD [address] [address] PCP - General Family Medicine 10/26/22 Ruth Rodriguez MD [address] [facility] 110 [place] [address] PCP - [place] [employer] 12/18/24
--- OUTSIDE RECORDS SUMMARY | 2025-03-22 10:06 | XMS_ITS | Encounter Summary ---
Author Organization [facility] Address [address] [place] [address] Care Team Providers Care Truck And Transport Mechanic Name Role Phone Ruth Rose MD Primary Care Provider Ruth Rose MD Unavailable Raya Snowden LPN Unavailable Encounter Details Date Type Department Care Team (Late Contact Info) Description 03/01/2024 External Result Encounter [facility] External Department Unsolicited Serene Modi, PA [address] [facility] 110 [place], [place] [id number] Social History Tobacco Use Types Packs/Day Years [...] Visit [facility] [place] [address] [facility] 110 [place] [phone] Madhavi March, PARLIAMENTARY ARCHIVIST [address] [facility] 110 [place] [address] [phone] (work) documented as of this encounter Procedures Procedure Name Priority Date/Time Associated Diagnosis Comments US GUIDED ABDOMINAL PARACENTESIS 03/01/2024 3:25 PM EDT documented in this encounter Results * US guided abdominal paracentesis (03/01/2024 3:25 PM EDT) Anatomical Region Laterality Modality Abdomen Ultrasound 03/01/2024 3:25 PM EDT Impressions 03/01/2024 3:28 PM EDT STATUS POST ULTRASOUND-GUIDED THERAPEUTIC PARACENTESIS. Impression dictated by: Serene Greenberg M.D.03/01/2024 3:26 PM Dictation Location: [place] [address] Tech: Kathy Meade Transcribed By: JOSE ELIAS 03/01/24 1526 Dictated By: Serene Greenberg MD 03/01/24 1525 Signed By: <Electronically signed by MD Serene Greenberg in OV> 03/01/24 1526 Narrative 03/01/2024 3:28 PM EDT [facility] [place] [address] Ultrasound Report Signed Patient: Bernadine Fuentes MR#: [id number] : 1965 Acct:[id number] Age/Sex: 58 / F ADM Date: 03/01/24 Loc: Room: Type: [facility] Attending Dr: Serene Modi PARLIAMENTARY ARCHIVIST-C Ordering Provider: Serene Modi PA-C Date of Service: 03/01/24 US/US paracentesis abd w/image: K70.31 Copies to: Serene Modi PA-C ULTRASOUND-GUIDED PARACENTESIS CLINICAL DATA: Cirrhosis with recurrent symptomatic ascites The procedure was discussed with the patient and consent was obtained. Ultrasound survey of the abdomen and pelvis was performed and large amount of ascites was identified. The right lower quad rant was chosen as the site for aspiration. Following sterile preparation and local anesthesia with lidocaine, a 5 Wolof Yueh sheath catheter was advanced into the peritoneal cavity with return of clear yellow fluid. Approximately 5700 mL of ascites was drained. The catheter was removed. There were no immediate complications. Patient was sent to the infusion center for albumin replacement therapy. US/US paracentesis abd w/image Procedure Note Radiology, Radiologist, - 03/01/2024 [facility] [place] [address] [place] [address] Ultrasound Report Signed Patient: Bernadine Fuentes [facility]#: [id number] : 1965Acct:[id number] Age/Sex: 58 / FADM Date: 03/01/24 Loc: Room:Type: [facility] Attending Dr: Serene Modi PARLIAMENTARY ARCHIVIST-C Ordering Provider: Serene Modi PA-C Date of Service: 03/01/24 US/US paracentesis abd w/image: K70.31 Copies to: Serene Modi PA-C ULTRASOUND-GUIDED PARACENTESIS CLINICAL DATA: Cirrhosis with recurrent symptomatic ascites The procedure was discussed with the patient and consent was obtained.Ultrasound survey of the abdomen and pelvis was performed and large amount of ascites wasidentified. The right lower quad rant was chosen as the site for aspiration. Following sterile preparationand local anesthesia with lidocaine, a 5 Wolof Yueh sheath catheter was advanced into theperitoneal cavity with return of clear yellow fluid. Approximately 5700 mL of ascites was drained. Thecatheter was removed. There were no immediate complications. Patient was sent to the infusion centerfor albumin replacement therapy. US/US paracentesis abd w/image IMPRESSION: STATUS POST ULTRASOUND-GUIDED THERAPEUTIC PARACENTESIS. Impression dictated by: Serene Greenberg M.D.03/01/2024 3:26 PM Dictation Location: [place] [address] Tech: Kathy Meade Transcribed By: JOSE ELIAS 03/01/24 1526 Dictated By: Serene Greenberg MD 03/01/24 1525 Signed By: <Electronically signed by MD Serene Greenberg in OV> 03/01/24 1526 us Serene ZAVALA IMG US PROCEDURES Final Result documented in this encounter Visit Diagnoses Not on filedocumented in this encounter Care Teams Truck And Transport Mechanic Relationship Specialty Start Date End Date Ruth Rose MD [address] [facility] [address] [place] [address] PCP - General Family Medicine 10/26/22 Ruth Rose MD [address] [facility] 110 [place] [address] PCP - [facility] 12/18/24 Raya Snowden LPN [address] [facility] [address] [place] [address] 03/13/25 03/18/25 documented as of this encounter
--- OUTSIDE RECORDS SUMMARY | 2025-03-22 10:06 | XMS_ITS | Encounter Summary ---
Author Organization [facility] Address [address] [place] [address] Care Team Providers Care Meal Temperer Name Role Phone Ruth Rose MD Primary Care Provider [phone] Ruth Rose MD Unavailable Raya Snowden LPN Unavailable Encounter Details Date Type Department Care Team (Late Contact Info) Description 08/04/2023 Orders Only [facility] [place] [facility] [address] [facility] 110 [place] [address] A, Unknown Practice [address] [place], [place] [phone] Social History Tobacco Use Types Packs/Day Years [...] AM EDT Procedure Visit [facility] [place] [facility] [address] [facility] [address] [place] [phone] Madhavi March, AINSLEY [address] [place] [address] documented as of this encounter Procedures Procedure Name Priority Date/Time Associated Diagnosis Comments INFLUENZA, INJECTABLE, QUADRIVALENT, PRESERVATIVE FREE Routine 08/03/2023 1:44 PM EST documented in this encounter Results * influenza, injectable, quadrivalent, PF free (08/03/2023 1:44 PM EST) us Unknown Practice A IMMUNIZATION ORDERABLES Final Result documented in this encounter Visit Diagnoses Not on filedocumented in this encounter Care Teams Meal Temperer Relationship Specialty Start Date End Date Ruth Rose MD [address] [facility] 110 [place] [address] PCP - General Family Medicine 10/26/22 Ruth Rose MD [address] [facility] [address] [place] [address] PCP - [place] [employer] 12/18/24 Raya Snowden LPN [address] [facility] 110 [place] [address] 03/13/25 03/18/25 documented as of this encounter
--- OUTSIDE RECORDS SUMMARY | 2025-03-22 10:06 | XMS_ITS | Encounter Summary ---
Author Organization [facility] Address [address] [place] [address] Care Team Providers Care New Car Sales Manager Name Role Phone Ruth Rose MD Primary Care Provider Ruth Rose MD Unavailable Raya Snowden LPN Unavailable Encounter Details Date Type Department Care Team (Late Contact Info) Description 03/22/2024 Abstract [facility] [place] [address] [facility] [address] [place] [phone] Ruth Rose MD [address] [facility] 110 [place] [address] Social History Tobacco Use Types Packs/Day Years [...] [place] Santamaria [address] [place] [address] Madhavi March, AINSLEY [address] [place] [address] documented as of this encounter Visit Diagnoses Not on filedocumented in this encounter Care Teams New Car Sales Manager Relationship Specialty Start Date End Date Ruth Rose MD [address] [facility] [address] [place] [address] PCP - General Family Medicine 10/26/22 Ruth Rose MD [address] [facility] [address] [place] [address] [facility] 12/18/24 Raya Snowden LPN [address] [facility] [address] [place] [address] 03/13/25 03/18/25 documented as of this encounter
--- OUTSIDE RECORDS SUMMARY | 2025-03-22 10:06 | XMS_ITS | Encounter Summary ---
Author Organization [employer] s tem Address [id number] [address] [place] [address] Care Team Providers Care Layout Former Name Role Phone Ruth Rose MD Primary Care Provider [phone] Encounter Details Date Type Department Care Team (Late st Contact Info) Description 12/12/2024 Documentation [facility] [address] [facility] [address] [place] [address] Gene Ontiveros MD [address] [facility] [place] [address] Social History Tobacco Use Types Packs/Day Years Used Date Smoking Tobacco: Former Cigarettes 2 2012 Smokeless Tobacco: Never Alcohol Use Standard Drinks/Week Comments Not Currently 0 (1 standard drink = 0.6 oz pur e alcohol) [facility] Utilities Answer Date Recorded In the past 12 months has [employer], oil, or water [employer] threatened to shut off services in your [...] got money to buy more. Never True 12/14/2024 Within the past 12 months th e food we bought just didn't last and we didn't have money to get more. Never True 12/14/2024 Purpose - Life Answer Date Recorded Purpose and direction in life Unknown Comments No Sex and Gender Information Value Date Recorded Sex Assigned at Not on file Legal Sex Female 11:40 AM EDT Gender Identity Not on file Sexual Orientation Not on file documented as of this encounter Functional Status * Audit-C Score Answer Date of Assessment Author 0 12/14/2024 11:42 AM ABDULKADIRT Kacie Solares RN * Question Answer Date of Assessment Author Q1: How often do you have a drink containing alcohol? Never 12/14/2024 11:42 AM Kacie Mcmillan RN Q2: How many drinks containing alcohol do you have on a typical day when you are drinking? Patient does not drink 12/14/2024 11:42 AM ABDULKADIRT Kacie Solares RN Q3: How often do you have six or more drinks on one occasion? Never 12/14/2024 11:42 AM Kacie Mcmillan RN * Question Answer Date of Assessment Author Functional Status Independent 12/14/2024 11:38 AM Kacie Mcmillan RN documented as of this encounter Plan of Treatment Upcoming Encounters Date Type Department Care Team (Late st Contact Info) Description 08/12/2025 10:00 AM EST Appointment [facility] [address] [place] [phone] Raulito Dang MD [address], [facility] [address] [place] [address] 08/22/2025 8:40 AM EST Office Visit [facility] [place] [address] [place] [address] Raulito Dang MD [address], [address] [address] documented as of this encounter Visit Diagnoses Not on filedocumented in this encounter Care Teams Layout Former Relationship Specialty Start Date [place] [address] [place] [address] PCP - General Family Medicine 04/26/18 documented as of this encounter
--- OUTSIDE RECORDS SUMMARY | 2025-03-22 10:06 | XMS_ITS | Encounter Summary ---
Author Organization [facility] Address [address] [place] [address] Care Team Providers Care Infection Control Preventionist Name Role Phone Ruth Rodriguez MD Primary Care Provider Ruth Rodriguez MD Unavailable Raya Snowden LPN Unavailable Encounter Details Date Type Department Care Team (Late Contact Info) Description 12/28/2023 Clinisync Result Encounter [facility] External Department Unsolicited Ruth Rodriguez MD [address] [facility] 110 [place], [place] [id number] Social History Tobacco Use Types Packs/Day Years [...] AM EDT Procedure Visit [facility] [place] Medibeny [address] [facility] 110 [place] [address] Madhavi March, AINSLEY [address] [facility] 110 [place] [address] [phone] (work) documented as of this encounter Procedures Procedure Name Priority Date/Time Associated Diagnosis Comments MM TOMOSYNTHESIS SCREENING BI 12/28/2023 12:25 PM EDT documented in this encounter Results * MM TOMOSYNTHESIS SCREENING BI (12/28/2023 12:25 PM EDT) Anatomical Region Laterality Modality Other 12/28/2023 12:2 5 PM EDT Narrative 12/28/2023 12:26 [place] [address] Mammography Report Signed Patient: BERNADINE FUENTES MR#: [id number] : 1965 Acct:[id number] Age/Sex: 58 / F ADM Date: 12/28/23 Loc: MAMMO Attending Dr: RUTH RODRIGUEZ Ordering Physician: RUTH RODRIGUEZ Results: Date of Service: 12/28/23 Follow Up: Procedure(s): MM tomosynthesis screening BI Accession Number(s): [id number] cc: RUTH RODRIGUEZ Patient Name: BERNADINE FUENTES MR#: [id number] : 1965 Exam Date: 12/28/2023 Ordering Doctor: [...] Treatments None Family Cancers None LOCATION: [facility] BREAST COMPOSITION: The breasts are extremely dense, [...] Burleson M.D. Signed By: 12/28/23 1226 DD/ 24 TD/TT: Flavorer: Procedure Note Radiology, Radiologist, MD - 12/28/2023 [place] [address] Mammography Report Signed Patient: BERNADINE FUENTES SMR#: [id number] : 1965Acct:[id number] Age/Sex: 58 / FADM Date: 12/28/23 Loc: MAMMO Attending Dr: RUTH RODRIGUEZ Ordering Physician: Anatoliy RODRIGUEZults: Date of Service: 12/28/23Follow Up: Procedure(s): MM tomosynthesis screening BI Accession Number(s): [id number] cc: RUTH RODRIGUEZ Patient Name: BERNADINE FUENTES MR#: [id number] : 1965 Exam Date: 12/28/2023 Ordering Doctor: [...] Treatments None Family Cancers None LOCATION: [facility] BREAST COMPOSITION: The breasts are extremely dense, [...] M.D. Signed By:12/28/23 1226 DD/ 1225 TD/TT: Flavorer: us Ruth Rodriguez MD [facility] Final Result documented in this encounter Visit Diagnoses Not on filedocumented in this encounter Care Teams Infection Control Preventionist Relationship Specialty Start Date End Date Ruth Rodriguez MD [address] [facility] [address] [place] [address] PCP - General Family Medicine 10/26/22 Ruth Rodriguez MD [address] [facility] [address] [place] [address] [facility]/18/24 Raya Snowden LPN [address] [facility] [address] [place] [address] 03/13/25 03/18/25 documented as of this encounter
--- OUTSIDE RECORDS SUMMARY | 2025-03-22 10:06 | XMS_ITS | Encounter Summary ---
Author Organization [facility] Address [address] [place] [address] Care Team Providers Care Prior Authorization Nurse Name Role Phone Ruth Rose MD Primary Care Provider [phone] Ruth Rose MD Unavailable Raya Snowden LPN Unavailable Encounter Details Date Type Department Care Team (Late st Contact Info) Description 03/18/2025 Telephone [facility] [place] [facility] 112 [facility] 100 [place] [phone] Ruth Rose MD 112 [facility] 110 [place] [address] Social History Tobacco Use Types Packs/Day Years [...] PM EDT documented as of this encounter Miscellaneous Notes * Telephone Encounter - TY LANCASTER - 03/18/2025 2:49 PM EDT Order faxed to [facility] * Telephone Encounter - Cass Sanders - 03/18/2025 2:35 PM EDT Shawn called, Bernadine would like to get her mammogram done and is requesting an order to [facility]. She has her Pap scheduled for 03/27/25. documented in this encounter Plan of Treatment Upcoming Encounters Date Type Department Care Team (Late st Contact Info) Description 03/27/2025 10:00 AM EDT Procedure Visit [facility] [place] [address] [place] [phone] Madhavi March NP [address] [place] [address] Scheduled Orders Name Type Priority Associated Diagnoses Orde r Schedule Bilateral screening mammogram with tomosynthesis Imaging Routine Encounter for screening mammogram for breast cancer Expected: 03/18/2025 (Approximate), Expires: 05/18/2026 documented as of this encounter Visit Diagnoses Diagnosis Encounter for other screening for malignant neoplasm of breast Encounter for screening mammogram for breast cancer documented in this encounter Care Teams Prior Authorization Nurse Relationship Specialty Start Date End Date Ruth Rose MD [address] [place] [address] PCP - General Family Medicine 10/26/22 Ruth Rose MD [address] [place] [address] PCP - [employer] [employer] 12/18/24 Raya Snowden LPN [address] [place] [address] 03/13/25 03/18/25 documented as of this encounter
--- OUTSIDE RECORDS SUMMARY | 2025-03-22 10:10 | XMS_ITS | CCD ---
Author Organization [facility] Care Team Providers Care Lumber Marker Name Role Phone BECK DELACRUZ Attending Unavailable SELF, REFERRED Referring Unavailable JENNIFERBRYSON Primary Care Unavailable BECK DELACRUZ Admitting Unavailable JENNIFER, DR MASSEY Admitting Unavailable JENNIFER, DR MASSEY Primary Care Unavailable JENNIFER, DR MASSEY Consulting Unavailable JENNIFER, DR MASSEY Attending Unavailable WEST, DR JIN Martinez Consulting Unavailable Hemmer, REPORTS ANALYSIS MANAGER-C Serene Primary Care Provider MD Wes Hadley Attending Provider Hemmartín, REPORTS ANALYSIS MANAGER-C Serene Attending Provider Hemmer REPORTS ANALYSIS MANAGER-C, Serene Primary Care Provider Wes Hadley MD Attending Provider [phone] Hemmer REPORTS ANALYSIS MANAGER-C, Serene Attending Provider [phone] Bryson Rodriguez MD Primary Care Provider Hemmartín REPORTS ANALYSIS MANAGER-C, Serene Primary Care Provider Wes Hadley MD Attending Provider eWs Hadley Admitting Unavailable Wes Hadley Attending Unavailable HemmerSerene Primary Care Unavailable Wes Hadley Attending Unavailable Wes Hadley Admitting Unavailable Hemmer, Serene Primary Care Unavailable Hemmer, Serene Admitting Unavailable Hemmer, Serene Primary Care Unavailable Hemmer, Serene Attending Unavailable Wes Hadley Admitting Unavailable Wes Hadley Attending Unavailable Hemmer, Serene Primary Care Unavailable Wes Hadley Admitting Unavailable Wes Hadley Attending Unavailable Hemmartín Serene Primary Care Unavailable Bryson Rodriguez MD Primary Care Provider JENNIFER, RUGEN M Attending Unavailable RUBY ROBLEDO Attending Unavailable RUBY ROBLEDO Referring Unavailable BRIAN NESBITT Attending Unavailable NESBITTBRIAN GALVEZ Referring Unavailable NESBITTBRIAN Referring Unavailable RUBY ROBLEDO Attending Unavailable RUBY ROBLEDO Attending Unavailable HEMMER, SERENE Garcia Attending Unavailable HEMMER, SERENE Garcia Attending Unavailable HEMMER, SERENE Garcia Attending Unavailable NESBITTBRIAN Attending Unavailable JENNIFER, RUGEN M Attending Unavailable CASSAVARGENE Attending Unavailable JENNIFER, RUGEN M Referring Unavailable JENNIFER, RUGEN M Primary Care Unavailable CASSAVARGENE Referring Unavailable JENNIFER, RUGEN M Primary Care Unavailable CASSAVARGENE Referring Unavailable JENNIFER, RUGEN M Primary Care Unavailable CASSAVARGENE Referring Unavailable JENNIFER, RUGEN M Primary Care Unavailable TUTU, RUALITO F Referring Unavailable JENNIFER, RUGEN M Primary Care Unavailable TUTU, RAULITO F Admitting Unavailable TUTU, RAULITO F Attending Unavailable JENNIFER, RUGEN M Primary Care Unavailable TUTU, RAULITO F Referring Unavailable JENNIFER, RUGEN M Primary Care Unavailable TUTU, RAULITO F Attending Unavailable TUTU, RAULITO F Referring Unavailable JENNIFER, RUGEN M Primary Care Unavailable TUTU, RAULITO F Attending Unavailable TUTU, RAULITO F Referring Unavailable JENNIFER, RUGEN M Primary Care Unavailable TUTU, RAULITO F Attending Unavailable TUTU, RAULITO F Referring Unavailable JENNIFER, RUGEN M Primary Care Unavailable TUTU, RAULITO F Attending Unavailable JENNIFER, RUGEN M Referring Unavailable JENNIFER, RUGEN M Primary Care Unavailable TUTU, RAULITO F Attending Unavailable JENNIFER, RUGEN M Referring Unavailable JENNIFER, RUGEN M Primary Care Unavailable TUTU, RAULITO F Attending Unavailable JENNIFER, RUGEN M Referring Unavailable JENNIFER, RUGEN M Primary Care Unavailable TUTU, RAULITO F Attending Unavailable JENNIFER, RUGEN M Referring Unavailable JENNIFER, RUGEN M Primary Care Unavailable Medications Current Medications Medication Drug Class(es) Dates Sig (Normalized) Sig (Original) atorvastatin 40 mg oral tablet (20 sources) HMG-CoA Reductase Inhibitor Start: 11-01-2024 End: 02-26-2025 take 1 tablet by mouth in the morning atorvastatin (LIPITOR) 40 mg tablet TAKE 1 TABLET(40 MG) BY MOUTH IN THE MORNING 30 tablet 02/26/2025 Active Calcium (10 sources) Phosphate Binder, Calcium take 600 mg by mouth in the morning CALCIUM ORAL Take 600 mg by mouth in the morning. take 600 mg by mouth in the morn ing CALCIUM ORAL Take 600 mg by mouth in the morning. Active calcium carbonate 1500 mg oral tablet (3 sources) Start: 03-28-2024 take 1 tablet by mouth once daily Calcium Carbonate (Calcium 600) 600 mg calcium (1,500 mg) tablet Active 600 MG PO Daily March 27, 2024 11:00pm calcium citrate 1040 mg oral tablet (20 sources) take 2 tablets by mouth in the morning, then take 2 tablets by mouth in the evening, then take 2 tablets by mouth at bedtime calcium citrate 1040 MG tablet Take 2 tablets by mouth in the morning and 2 tablets in the evening and 2 tablets before bedtime. Active cefTRIAXone 1000 mg injection (2 sources) [...] 08/04/2024 Active cholecalciferol 0.025 mg oral capsule (20 sources) Vitamin D Start: 03-28-2024 take 1 capsule by mouth once daily Cholecalciferol (Vitamin D3) (Vitamin D3) 25 mcg (1,000 unit) capsule Active 1000 UNIT PO Daily March 27, 2024 11:00pm take 1 tablet by mouth in the mo rning cholecalciferol 1,000 units tablet Take 1 tablet (1,000 Units total) by mouth in the morning. Active take 1 capsule by mouth once sury ly cholecalciferol (Vitamin D-3) 50 MCG (2000 UT) capsule Take 1 capsule by mouth 1 (one) time each day at the same time. Active clopidogrel 75 mg oral tablet (9 sources) P2Y12 Platelet Inhibitor Start: 12-14-2024 End: 06-27-2025 take 1 tablet by mouth in the morning clopidogreL (PLAVIX) 75 mg tablet Take 1 tablet (75 mg total) by mouth in the morning. 30 tablet 3 12/14/2024 Active docosahexaenoic acid 120 mg / eicosapentaenoic acid 180 mg oral capsule (20 sources) take 1 capsule by mouth once daily omega-3 (Fish Oil) 1000 MG capsule Take 1 capsule by mouth 1 (one) time each day at the same time. Active docusate sodium 100 mg oral capsule (20 sources) Start: 03-28-2024 take 1 capsule by mouth once daily Docusate Sodium (Col-Rite) 100 mg capsule Active 100 MG PO Daily March 27, 2024 11:00pm doxycycline monohydrate 50 mg oral capsule (2 sources) Tetracycline-cla ss Drug Start: 07-25-2024 End: 08-04-2024 doxycycline (Monodox) 50 MG capsule Indications: Diabetic [...] tablet (13 sources) Histamine-2 Receptor Antagonist Start: 03-15-2024 End: 07-26-2024 take 1 tablet by mouth once daily at bedtime Famotidine 20 mg tablet Active 20 MG PO Daily at bedtime March 27, 2024 11:00pm take 1 tablet by mouth at bedtim e famotidine (Pepcid) 20 MG tablet Take 20 mg by mouth at bedtime Active folic acid 0.8 mg oral capsule (13 sources) Start: 03-28-2024 take 8 capsules by mouth once daily Folic Acid (Fa-8) 0.8 mg capsule Active 800 MCG PO Daily March 27, 2024 11:00pm take 0.5 tablet by mouth in the morning folic acid (FOLVITE) 800 MCG tablet Take 0.5 tablets (400 mcg total) by mouth in the morning. Active hydrocortisone acetate 25 mg rectal suppository (3 sources) Corticosteroid Start: 01-31-2024 End: 02-10-2024 hydrocortisone (Anusol-HC) 25 MG suppository Indications: Internal hemorrhoids Insert 1 suppository (25 mg) into the rectum in the morning and 1 suppository (25 mg) before bedtime. Do all this for 10 days. 20 suppository 01/31/2024 02/10/2024 Active metFORMIN hydrochloride 500 mg oral tablet (20 sources) Biguanide Start: 10-25-2024 End: 10-25-2025 take 1 tablet by mouth in the morning metFORMIN (Glucophage) 500 MG tablet Indications: Diabetes mellitus due to underlying condition with diabetic nephropathy, without long-term current use of insulin (CMS/HCC) Take 1 tablet (500 mg) by mouth in the morning and 1 tablet (500 mg) in the evening. Take with meals. 60 tablet 11 10/25/2024 10/25/2025 Active Start: 02-23-2024 take 1000 mg by mouth once sury ly Metformin Active 1000 MG PO Daily February 23, 2024 12:00am Start: 01-19-2024 End: 10-25-2024 take 1 tablet by mouth in the morning, then take 1 tablet by mouth every twenty-four hours at mealtime metFORMIN, OSM, (Fortamet) 500 MG 24 hr tablet Indications: Liver disease Take 1 tablet (500 mg) by mouth in the morning and 1 tablet (500 mg) in the evening. Take with meals. Do not crush, chew, or split.. 90 tablet 2 01/19/2024 10/25/2024 Discontinued (Cost of medication) Multiple Vitamin (Multi Vitamin) tablet (20 sources) take 1 tablet by mouth once [...] TAB PO Daily March 28, 2024 12:00am omega 6-ffg-ipy-fish oil 100 -400-1,000 mg capsule (10 sources) omega 3-dha-epa- fish oil 100-400-1,000 mg capsule Take 1 capsule by mouth. omega 3-dha-epa- fish oil 100-400-1,000 mg capsule Take 1 capsule by mouth. Active spironolactone 100 mg oral tablet (20 sources) Aldosterone Antagonist Start: 07-21-2024 take 1 [...] 30 tablet 2 01/31/2024 02/08/2024 Discontinued (Ineffective) take 0.5 tablet by m outh in the morning spironolactone (ALDACTONE) 100 mg tablet Take 0.5 tablets (50 mg total) by mouth in the morning. edema. Active vitamin b12 1 mg oral tablet (20 sources) Vitamin B12 Start: 03-28-2024 take 1 tablet by mouth once daily Cyanocobalamin (Vitamin B-12) (Vitamin B-12) 1,000 mcg tablet Active 1000 MCG PO Daily March 27, 2024 11:00pm cyanocobalamin ( vitamin B-12) 1000 MCG tablet Take 100 mcg by mouth in the morning. Active take 1 tablet by mouth in the mo rning cyanocobalamin (Vitamin B-12) 100 MCG tablet Take 1 tablet by mouth in the morning. Active Completed/Discontinued Medications Medication Drug Class(es) Dates Sig (Normalized) Sig (Original) acetaminophen 500 mg oral tablet (1 source) Start: 12-13-2024 End: 12-14-2024 take 1 tablet by mouth every eight hours 1,000 mg, oral, Every 8 hours, First dose on Malathi 12/13/24 at 2030, Do not give for fever if patient received acetaminophen containing products within 4 hours. aspirin 81 mg delayed release oral tablet (17 sources) Platelet Aggregation Inhibitor, Nonsteroidal Anti-inflammatory Drug Start: 12-13-2024 End: 12-14-2024 take 81 mg by mouth once daily 81 mg, oral, Daily, First dose on Malathi 12/13/24 at 2030, Do not crush or chew. Start: 11-01-2024 aspirin 81 mg chewable tablet Chew 1 tablet (81 mg total) and swallow in the morning. 90 tablet 4 11/01/2024 Active calcium carbonate 1250 mg / cholecalciferol 200 unt oral tablet (5 sources) Vitamin D End: 12-04-2024 take 1 tablet by mouth once daily in the morning, then take 1 tablet by mouth once at mealtime calcium carbonate-vitamin D3 (CALCIUM 500 + D) 500 mg(1,250mg) -200 units per tablet Take 1 tablet by mouth in the morning and 1 tablet in the evening. Take with meals. 12/04/2024 Discontinued (Patient Stopped On Own) calcium chloride 0.0014 meq/ml / potassium chloride 0.004 meq/ml / sodium chloride 0.103 meq/ml / sodium lactate 0.028 meq/ml injectable solution (1 source) Start: 12-13-2024 End: 12-13-2024 take 2 mL intravenously every hour 100 mL/hr, intravenous, Continuous, Starting on Malathi 12/13/24 at 1330, Pre-op, If fluid restriction is not indicated, infuse at a rate up to 5 mL/kg/hr not to exceed the total replacement volume (2 ml/kg/hr) from the time NPO status was initiated. Calcium Gluconate (1 source) Start: 12-14-2024 End: 12-14-2024 calcium gluconate IVPB 1000 mg/50 mL (20 mg/mL premix) carvedilol 25 mg oral tablet (20 sources) alpha-Adrene rgic Ghada, beta-Adrener gic Ghada Start: 12-13-2024 End: 12-14-2024 take 12.5 mg by mouth twice daily at mealtime for hypertension 12.5 mg, oral, 2 times daily with meals, First dose on Malathi 12/13/24 at 2030, Give with meal or snack. Look-alike/sound-marilyn e medication - verify indication for use., Indications: hypertension Start: 05-01-2024 End: 06-28-2024 take 1 tablet by mouth in the morning carvedilol (Coreg) 3.125 MG tablet Take 3.125 mg by mouth in the morning and 3.125 mg before bedtime. 05/29/2024 Active take 1 tablet by nicolle th in the morning, then take 1 tablet by mouth at mealtime carvediloL (COREG) 12.5 mg tablet Indications: hypertension Take 1 tablet (12.5 mg total) by mouth in the morning and 1 tablet (12.5 mg total) in the evening. Take with meals. Indications: high blood pressure. Active coconut oil 1000 mg oral capsule (5 sources) End: 12-04-2024 coconut oil 1,000 mg capsule Take by mouth. 12/04/2024 Discontinued (Patient Stopped On Own) furosemide 20 mg oral tablet (20 sources) Loop Diuretic Start: 12-13-2024 End: 12-14-2024 take 20 mg by mouth once daily for edema 20 mg, oral, Daily, First dose on Malathi 12/13/24 at 2030, Look-alike/sound-ali ke medication - verify indication for use., Indications: edema Start: 07-21-2024 take 1 tablet by nicolle th once daily furosemide (Lasix) 40 MG tablet [...] 60 tablet 2 02/15/2024 07/26/2024 Discontinued (Other) take 0.5 tablet by m outh once daily furosemide (LASIX) 40 mg tablet Indications: edema Take 0.5 tablets (20 mg total) by mouth daily Indications: visible water retention. Active gabapentin 100 mg oral capsule (15 sources) [...] 90 capsule 2 11/17/2023 07/26/2024 Discontinued (Other) 1 ml heparin sodium, porcine 5000 unt/ml injection (1 source) Unfractionated Heparin, Anti-coagulant Start: 12-14-2024 End: 12-14-2024 inject 5000 [IU] by subcutaneous injection every eight hours 5,000 Units, subcutaneous, Every 8 hours scheduled, First dose on Tue12/14/24 at 0745, Look-alike/sound-alike medication - verify indication for use. Observe for bleeding. magnesium sulfate IVPB 2000 mg/50 mL in iso-osmotic water (40 mg/mL premix) (1 source) Start: 12-14-2024 End: 12-14-2024 magnesium sulfate IVPB 2000 mg/50 mL in iso-osmotic water (40 mg/mL premix) metOLazone 5 mg oral tablet (6 sources) Thiazide-like Diuretic Start: 02-15-2024 End: 07-26-2024 take 1 tablet by mouth once daily metOLazone (Zaroxolyn) 5 MG tablet Indications: Generalized edema Take 1 tablet (5 mg) by mouth Daily for 5 days 5 tablet 02/15/2024 07/26/2024 Discontinued (Other) 2 ml ondansetron 2 mg/ml injection (1 source) Serotonin-3 Receptor Antagonist Start: 12-13-2024 End: 12-14-2024 take 4 mg intravenously every four hours as needed for nausea oxyCODONE hydrochloride 5 mg oral tablet (2 sources) Opioid Agonist Start: 12-13-2024 End: 12-14-2024 take 1 tablet by mouth every four hours as needed for pain 5 mg, oral, Every 4 hours PRN, severe pain - pain scale 7-10, Starting on Malathi 12/13/24 at 1915, Look-alike/sound-alike medication - verify indication for use. Immediate release. Start: 12-13-2024 End: 12-14-2024 take 1 tablet by mouth every four hours as needed for pain 2.5 mg, oral, Every 4 hours PRN, moderat e pain - pain scale 4-6, Starting on Malathi 12/13/24 at 1915, Look-alike/sound-alike medication - verify indication for use. Immediate release. phenylephrine HCl in 0.9% Na Cl (SARA-SYNEPHRINE) 20 mg/250 mL (80 mcg/mL) premix infusion (1 source) Start: 12-14-2024 End: 12-14-2024 0.5-2.5 mcg/kg/min 62.6 kg (23.475-117.375 mL/hr, rounded to 23.5-117.4 mL/hr), intravenous, Continuous, Starting on Tue12/14/24 at 0200, Preferred central line administration. Max 5 mcg/kg/min with provider order. Notify prescriber if rate exceeds 2.5 mcg/kg/min. VESICANT (RED), Monitoring Goals: SBP, Monitoring Goal Direction: Greater than or Equal to, Please specify: SBP Potassium Chloride (20 sources) Start: 12-14-2024 End: 12-14-2024 potassium chloride (K-TAB,KLOR-CON) CR tablet 20-40 mEq Start: 02-23-2024 End: 11-05-2024 take 20 mEq by mouth once daily potassium chloride (Klor-Con) 20 MEQ packet Indications: Generalized edema Take 20 mEq by mouth Daily 100 packet 03/07/2024 11/05/2024 Discontinued (Other) Start: 02-08-2024 take 20 mEq by mouth once daily potassium chloride (Klor-Con) 20 MEQ packet Indications: Generalized edema Take 20 mEq by mouth Daily 30 packet 2 02/08/2024 Active potassium chloride IVPB 10 mEq/50 mL in water (0.2 mEq/mL premix) (1 source) Start: 12-14-2024 End: 12-14-2024 potassium chloride IVPB 10 mEq/50 mL in water (0.2 mEq/mL premix) psyllium 520 mg oral capsule (5 sources) End: 12-04-2024 take 1 capsule by mouth in the morning psyllium (METAMUCIL) 0.52 gram capsule Take 1 capsule (0.52 g total) by mouth in the morning. 12/04/2024 Discontinued (Patient Stopped On Own) 1000 ml sodium chloride 9 mg/ml injection (5 sources) Start: 12-14-2024 End: 12-14-2024 take 75 mL intravenously every hour 75 mL/hr, intravenous, Continuous, Starting on Tue12/14/24 at 0100, For 1 day Start: 12-13-2024 End: 12-14-2024 500 mL, intravenous, at 968 mL/hr, Administer over 31 Minutes, Once, On Tue12/14/24 at 0100, For 1 dose Start: 12-13-2024 End: 12-14-2024 3 mL, intravenous, Every 12 hours scheduled, First dose on Malathi 12/13/24 at 2100 Start: 12-13-2024 End: 12-14-2024 sodium phosphate 20 mmol in sodium chloride 0.9 % 250 mL IVPB (1 source) Start: 12-14-2024 End: 12-14-2024 sodium phosphate 20 mmol in sodium chloride 0.9 % 250 mL IVPB Problems Active Problems Problem Classification Problem Date Documented Da te Episodic/Chronic Alcohol-related disorders (20 sources) Alcoholic cirrhosis; Translations: [Alcoholic cirrhosis of liver without ascites] Onset: 02-28-2023 02-23-2024 Chronic Coronary atherosclerosis and other heart disease (20 sources) Disorder of cardiovascular system; Translations: [Atherosclerotic heart disease of [place] coronary artery without angina pectoris] Onset: 02-20-2013 03-01-2023 Chronic Diabetes mellitus with complications (1 source) Disorder of kidney due to diabetes mellitus; Translations: [Diabetes mellitus due to underlying condition with diabetic nephropathy] 10-25-2024 Chronic Diabetes mellitus without complication (20 sources) Impaired glucose tolerance; Translations: [Impaired glucose tolerance (oral)] Onset: 02-28-2023 02-28-2023 Episodic Disorders of lipid metabolism (20 sources) Hypertriglyceridemia ; Translations: [Pure hyperglyceridemia] Onset: 02-28-2023 02-28-2023 Chronic Epilepsy; convulsions (20 sources) Epilepsy; Translations: [Epilepsy, unspecified, not intractable, without status epilepticus] Onset: 08-01-2013 03-01-2023 Chronic Essential hypertension (15 sources) Benign essential hypertension; Translations: [Essential (primary) hypertension] Onset: 11-05-2024 11-05-2024 Chronic Fracture of upper limb (4 sources) Closed fracture of distal end of right radius; Translations: [Unspecified fracture of the lower end of right radius, initial encounter for closed fracture] 09-17-2024 Episodic Gangrene (20 sources) Critical lower limb ischemia ; Translations: [Atherosclerosis of [place] arteries of extremities with gangrene, right leg] Onset: 11-01-2024 11-01-2024 Chronic Gastroduodenal ulcer (except hemorrhage) (20 sources) Ulcer of duodenum; Translations: [Duodenal ulcer, unspecified as acute or chronic, without hemorrhage or perforation] Onset: 02-28-2023 02-28-2023 Chronic Menopausal disorders (20 sources) Decreased estrogen level; Translations: [Other primary ovarian failure] Onset: 02-28-2023 02-28-2023 Chronic Osteoarthritis (20 sources) Osteoarthritis of knee; Translations: [Osteoarthritis of knee, unspecified] Onset: 02-28-2023 02-28-2023 Chronic Osteoporosis (20 sources) Osteoporosis; Translations: [Age-related osteoporosis without current pathological fracture] Onset: 02-28-2023 02-28-2023 Chronic Other acquired deformities (20 sources) Scoliosis deformity of spine; Translations: [Scoliosis, unspecified] Onset: 02-28-2023 02-28-2023 Chronic Other circulatory disease (5 sources) Critical lower limb ischemia 11-01-2024 Episodic Other circulatory disease (2 sources) Critical ischemia of foot 02-07-2025 Episodic Other connective tissue disease (4 sources) Pain in bilateral legs; Translations: [Pain in right leg] Onset: 11-05-2024 11-05-2024 Episodic Other gastrointestinal disorders (5 sources) Ascites; Translations: [Other ascites] 02-23-2024 Episodic Other hematologic conditions (20 sources) Macrocytosis; Translations: [Other specified diseases of blood and blood-forming organs] Onset: 02-28-2023 02-28-2023 Chronic Other hematologic conditions (20 sources) Macrocytosis - no anemia; Translations: [Other specified diseases of blood and blood-forming organs] Onset: 05-17-2017 03-01-2023 Chronic Other liver diseases (20 sources) Disease of liver; Translations: [Liver disease, unspecified] Onset: 10-11-2017 03-01-2023 Chronic Other liver diseases (6 sources) Abnormal levels of other serum enzymes; Translations: [Other nonspecific abnormal serum enzyme levels] Onset: 06-28-2024 02-23-2024 Episodic Other non-traumatic joint disorders (5 sources) Pain of right wrist; Translations: [Pain in right wrist] 09-13-2024 Episodic Other screening for suspected conditions (not mental disorders or infectious disease) (20 sources) Encounter for screening mammogram for malignant neoplasm of breast; Translations: [Electrocardiogram abnormal] Onset: 11-29-2013 Episodic Other upper respiratory disease (4 sources) Epistaxis; Translations: [Epistaxis] Onset: 11-05-2024 11-05-2024 Episodic Peripheral and visceral atherosclerosis (11 sources) Peripheral vascular disease, unspecified; Translations: [Peripheral vascular disease, unspecified] Onset: 12-13-2024 12-13-2024 Chronic Spondylosis; intervertebral disc disorders; other back problems (20 sources) Degeneration of lumbar intervertebral disc; Translations: [Other intervertebral disc degeneration, lumbar region] Onset: 02-28-2023 02-28-2023 Chronic Unclassified (2 sources) Epistaxis, recurrent 11-05-2024 Unclassified (4 sources) Autogenerated Problem Onset: 11-29-2024 11-29-2024 Unclassified (2 sources) Patient encounter status 12-04-2024 Unclassified (1 source) 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) [I70.261] Onset: 12-13-2024 Unclassified (1 source) New Patient Onset: 12-04-2024 Unclassified (1 source) Pre-op Exam Onset: 12-04-2024 Unclassified (1 source) TB Test Onset: 02-07-2025 Unclassified (1 source) Poor Circulation. Few ulcers on right foot (near toes) Onset: 11-01-2024 Past or Other Problems Problem Classification Problem Date Documented Da te Episodic/Chronic Biliary tract disease (20 sources) Cholelithiasis AND cholecystitis without obstruction; Translations: [Calculus of gallbladder with chronic cholecystitis without obstruction] Onset: 3 02-28-2023 Episodic Deficiency and other anemia (20 sources) Anemia; Translations: [Anemia, unspecified] Onset: 3 02-28-2023 Episodic Deficiency and other anemia (20 sources) Iron deficiency anemia; Translations: [Iron deficiency anemia, unspecified] Onset: 8 03-01-2023 Episodic Epilepsy; convulsions (20 sources) Seizure; Translations: [Unspecified convulsions] Onset: 4 03-01-2023 Episodic Fracture of lower limb (20 sources) Closed fracture distal femur, comminuted/intra-artic ular; Translations: [Other fracture of lower end of right femur, subsequent encounter for closed fracture with routine healing] Onset: 3 03-01-2023 Episodic Fracture of neck of femur (hip) (20 sources) Closed intertrochanteric fracture; Translations: [Displaced intertrochanteric fracture of unspecified femur, initial encounter for closed fracture] Onset: 3 03-01-2023 Episodic Gastrointestinal hemorrhage (20 sources) Hemorrhage of rectum and anus; Translations: [Hemorrhage of anus and rectum] Onset: 4 03-01-2023 Episodic Hemorrhoids (20 sources) Bleeding internal hemorrhoids; Translations: [Other hemorrhoids] Onset: 4 03-01-2023 Episodic Mood disorders (7 sources) Mood disorders Onset: 5 12-14-2024 Other circulatory disease (20 sources) Elevated blood-pressure reading without diagnosis of hypertension; Translations: [Elevated blood-pressure reading, without diagnosis of hypertension] Onset: 3 02-28-2023 Episodic Other fractures (20 sources) Closed fracture of acetabulum; Translations: [Unspecified fracture of unspecified acetabulum, initial encounter for closed fracture] Onset: 4 03-01-2023 Episodic Other gastrointestinal disorders (9 sources) Other ascites; Translations: [Other ascites] Onset: 4 02-23-2024 Episodic Other gastrointestinal disorders (4 sources) Swollen abdomen; Translations: [Abdominal distension (gaseous)] 02-08-2024 Episodic Other hematologic conditions (20 sources) H/O: anemia - iron deficient; Translations: [Personal history of diseases of the blood and blood-forming organs and certain disorders involving the immune mechanism] Onset: 7 03-01-2023 Episodic Other liver diseases (20 sources) Elevated liver enzymes level; Translations: [Abnormal levels of other serum enzymes] Onset: 4 02-23-2024 Episodic Other non-traumatic joint disorders (20 sources) Trochanteric bursitis; Translations: [Pain in unspecified hip] Onset: 3 03-01-2023 Episodic Residual codes; unclassified (20 sources) Edema, generalized; Translations: [Generalized edema] Onset: 4 01-31-2024 Episodic Residual codes; unclassified (20 sources) Current drinker; Translations: [Other specified health status] Onset: 7 Resolved: 4 01-31-2024 Episodic Skin and subcutaneous tissue infections (14 sources) Cellulitis and abscess of lower limb; Translations: [Cellulitis of unspecified part of limb] Onset: 5 07-26-2024 Episodic Superficial injury; contusion (15 sources) Blister of foot; Translations: [Blister (nonthermal), right foot, sequela] Onset: 5 07-26-2024 Episodic Results Test Name Value Interpretation Reference Range Facility ABO Rh [place] 12-14-2024 ABO A [facility] Rh Nom (Bld) Positive [facility] BASIC METABOLIC PANELon 11-19 Anion gap [Moles/Vol] 11 mmol/L Normal 5-15 [facility] Comment on above: Performed By: #### B MP #### [facility] ([facility]) [address] [place] [address] VIR Calcium [Mass/Vol] 8.4 mg/dL Low 8.5-10.5 [facility] Comment on above: Performed By: #### B MP #### [facility] ([facility]) [address] [place] [address] VIR Chloride [Moles/Vol] 104 mmol/L Normal 98-109 [facility] Comment on above: Performed By: #### B MP #### [facility] ([facility]) [address] [place] [address] VIR CO2 [Moles/Vol] 21 mmol/L Low 22-32 [facility] Comment on above: Performed By: #### B MP #### [facility] ([facility]) [address] [place] [address] VIR Creatinine [Mass/Vol] 0.79 mg/dL Normal 0.40-1.00 [facility] Comment on above: Result Comment: METH OD TRACEABLE TO IDMS STANDARD Performed By: #### B MP #### [facility] ([facility]) [address] [place] [address] VIR GFR/1.73 sq M.predicted among non-blacks MDRD (S/P/Bld) [Vol rate/Area] 85 mL/min/{1.73_m2} Normal >=60 [facility] Comment on above: Result Comment: Repo rted eGFR is based on the CKD-EPI 2020 equation that does not use a race coefficient. Performed By: #### B MP #### [facility] ([facility]) [address] [place] [address] VIR Glucose [Mass/Vol] 236 mg/dL High 65-99 [facility] Comment on above: Performed By: #### B MP #### [facility] ([facility]) [address] [place] [address] VIR Potassium [Moles/Vol] 4.0 mmol/L Normal 3.5-5.0 [facility] Comment on above: Performed By: #### B MP #### [facility] ([facility]) [address] [place] [address] VIR Sodium [Moles/Vol] 136 mmol/L Normal 134-146 [facility] Comment on above: Performed By: #### B MP #### [facility] ([facility]) [address] [place] [address] VIR Urea nitrogen [Mass/Vol] 9 mg/dL Normal 5-27 [facility] Comment on above: Performed By: #### B MP #### [facility] ([facility]) [address] [place] [address] VIR Basic Metabolic Panelon 11-19 Anion gap [Moles/Vol] 11 mmol/L 5 - 15 mmol/L [facility] Calcium [Mass/Vol] 8.4 mg/dL Low 8.5 - 10. 5 mg/dL [facility] Chloride [Moles/Vol] 104 mmol/L 98 - 10 9 mmol/L [facility] CO2 [Moles/Vol] 21 mmol/L Low 22 - 32 mmol/L [facility] Creatinine [Mass/Vol] 0.79 mg/dL 0.40 - 1.00 mg/dL [facility] Comment on above: METHOD TRACEABLE TO IDNJ STANDARD EGFR Non-Race Dependent 85 - PINF [facility] Comment on above: Reported eGFR is bas ed on the CKD-EPI 2020 equation that does not use a race coefficient. Glucose [Mass/Vol] 236 mg/dL High 65 - 99 mg/dL [facility] Interpretation and review of laboratory results Abnormal [facility] Potassium [Moles/Vol] 4 mmol/L 3.5 - 5.0 mmol/L [facility] Sodium [Moles/Vol] 136 mmol/L 134 - 146 mmol/L [facility] Urea nitrogen [Mass/Vol] 9 mg/dL 5 - 27 mg/dL [facility] CBC WITH AUTO DIFFERENTIALon 12-14-2024 BASOPHILS ABSOLUTE COUNT (10*3/UL) BY AUTOMATED COUNT 0.0 10*3/uL Normal 0.0-0.2 [facility] Comment on above: Performed By: #### B MP #### [facility] ([facility]) [address] [place] [address] VIR BASOPHILS RELATIVE PERCENT BY AUTOMATED COUNT 0.2 % Normal [facility] Comment on above: Performed By: #### B MP #### [facility] ([facility]) [address] [place] [address] VIR CELLAVISION DIFFERENTIAL TYPE AUTOMATED DIFFERENTIAL Normal [facility] Comment on above: Performed By: #### B MP #### [facility] ([facility]) [address] [place] [address] VIR Eosinophils (Bld) [#/Vol] 0.0 10*3/uL Normal 0.0-0.4 [facility] Comment on above: Performed By: #### B MP #### [facility] ([facility]) [address] [place] [address] VIR EOSINOPHILS RELATIVE PERCENT BY AUTOMATED COUNT 0.0 % Normal [facility] Comment on above: Performed By: #### B MP #### [facility] ([facility]) [address] [facility] [address] [place] [address] VIR Erythrocyte distribution width (RBC) [Ratio] 13.0 % Normal 11.5-15 [facility] Comment on above: Performed By: #### B MP #### [facility] ([facility]) [address] [facility] [address] [place] [address] VIR Hematocrit (Bld) [Volume fraction] 31.1 % Low 35-47 [facility] Comment on above: Performed By: #### B MP #### [facility] ([facility]) [address] [facility] [address] [place] [address] VIR Hemoglobin (Bld) [Mass/Vol] 10.6 g/dL Low 11.7-15.5 [facility] Comment on above: Performed By: #### B MP #### [facility] ([facility]) [address] [place] [address] VIR LYMPHOCYTES ABSOLUTE COUNT (10*3/UL) BY AUTOMATED COUNT 0.5 10*3/uL Low 1.0-3.5 [facility] Comment on above: Performed By: #### B MP #### [facility] ([facility]) [address] [facility] [address] [place] [address] VIR LYMPHOCYTES RELATIVE PERCENT BY AUTOMATED COUNT 8.9 % Normal [facility] Comment on above: Performed By: #### B MP #### [facility] ([facility]) [address] [place] [address] VIR MCH (RBC) [Entitic mass] 30.6 pg Normal 27-34 [facility] Comment on above: Performed By: #### B MP #### [facility] ([facility]) [address] [place] [address] VIR MCHC (RBC) [Mass/Vol] 34.0 g/dL Normal 32-36 [facility] Comment on above: Performed By: #### B MP #### [facility] ([facility]) [address] [place] [address] VIR MCV (RBC) [Entitic vol] 90 fL Normal 80-100 [facility] Comment on above: Performed By: #### B MP #### [facility] ([facility]) [address] [place] [address] VIR MONOCYTES ABSOLUTE COUNT (10*3/UL) BY AUTOMATED COUNT 0.2 10*3/uL Normal 0.0-0.9 [facility] Comment on above: Performed By: #### B MP #### [facility] ([facility]) [address] [place] [address] VIR MONOCYTES RELATIVE PERCENT BY AUTOMATED COUNT 3.0 % Normal [facility] Comment on above: Performed By: #### B MP #### [facility] ([facility]) [address] [place] [address] VIR NEUTROPHILS ABSOLUTE COUNT BY AUTOMATED COUNT 5.0 10*3/uL Normal 1.5-6.6 [facility] Comment on above: Performed By: #### B MP #### [facility] ([facility]) [address] [place] [address] VIR NEUTROPHILS RELATIVE PERCENT BY AUTOMATED COUNT 87.9 % Normal [facility] Comment on above: Performed By: #### B MP #### [facility] ([facility]) [address] [place] [address] VIR Platelet mean volume (Bld) [Entitic vol] 7.6 fL Normal 7-12 [facility] Comment on above: Performed By: #### B MP #### [facility] ([facility]) [address] [place] [address] VIR Platelets (Bld) [#/Vol] 103 10*3/uL Low 150-450 [facility] Comment on above: Performed By: #### B MP #### [facility] ([facility]) [address] [place] [address] VIR RBC COUNT 3.45 X10E12/L Low 3.8-5.2 [facility] Comment on above: Performed By: #### B MP #### [facility] ([facility]) [address] [place] [address] VIR WBC (Bld) [#/Vol] 5.7 10*3/uL Normal 4-11 [facility] Comment on above: Performed By: #### B MP #### [facility] ([facility]) [address] [place] [address] VIR CBC auto differentialon 11-19 Basophils (Bld) [#/Vol] 0 10*3/uL 0.0 - 0.2 10*3/uL [facility] Basophils/100 WBC (Bld) 0.2 % [facility] Differential cell count method Nom (Bld) AUTOMATED DIFFERENTIAL Pr [facility] Eosinophils (Bld) [#/Vol] 0 10*3/uL 0.0 - 0.4 10*3/uL [facility] Eosinophils/100 WBC (Bld) 0 % [facility] Erythrocyte distribution width (RBC) [Ratio] 13 % 11.5 - 15 % [facility] Hematocrit (Bld) [Volume fraction] 31.1 % Low 35 - 47 % [facility] Hemoglobin (Bld) [Mass/Vol] 10.6 g/dL Low 11.7 - 15.5 g/dL [facility] Interpretation and review of laboratory results Abnormal [facility] Lymphocytes (Bld) [#/Vol] 0.5 10*3/uL Low 1.0 - 3.5 10*3/uL [facility] Lymphocytes/100 WBC (Bld) 8.9 % [facility] MCH (RBC) [Entitic mass] 30.6 pg 27 - 34 pg [facility] MCHC (RBC) [Mass/Vol] 34 g/dL 32 - 36 g/dL P [facility] MCV (RBC) [Entitic vol] 90 fL 80 - 100 fL [facility] Monocytes (Bld) [#/Vol] 0.2 10*3/uL 0.0 - 0.9 10*3/uL [facility] Monocytes/100 WBC (Bld) 3 % [facility] Neutrophils (Bld) [#/Vol] 5 10*3/uL 1.5 - 6.6 10*3/uL [facility] Neutrophils/100 WBC (Bld) 87.9 % [facility] Platelet mean volume (Bld) [Entitic vol] 7.6 fL 7 - 12 fL [facility] Platelets (Bld) [#/Vol] 103 10*3/uL Low [facility] RBC (Bld) [#/Vol] 3.45 10*6/uL Low [facility] LM Ql (Sput[facility] 5.7 [facility] HEMOGLOBIN AND HEMATOCRIT, B [facility] 12-14-2024 Hematocrit (Bld) [Volume fraction] 27.7 % Low 35-47 [facility] Comment on above: Performed By: #### B MP #### [facility] ([facility]) [address] [place] [address] VIR Hemoglobin (Bld) [Mass/Vol] 9.6 g/dL Low 11.7-15.5 [facility] Comment on above: Performed By: #### B MP #### [facility] ([facility]) [address] [place] [address] VIR Hemoglobin and hematocrit, b [facility] 12-14-2024 Hematocrit (Bld) [Volume fraction] 27.7 % Low 35 - 47 % [facility] Hemoglobin (Bld) [Mass/Vol] 9.6 g/dL Low 11.7 - 15.5 g/dL [facility] Interpretation and review of laboratory results Abnormal [facility] IONIZED MAGNESIUMon 12-15-19 25 Magnesium [Moles/Vol] 0.31 mmol/L Low 0.45-0.74 [facility] Comment on above: Performed By: #### B MP #### [facility] ([facility]) [address] [place] [address] VIR Ionized magnesiumon 12-15-19 25 Interpretation and review of laboratory results Abnormal [facility] Magnesium Ionized ISE (Bld) [Moles/Vol] 0.31 mmol/L Low 0.45 - 0.74 mmol/L [facility] ABO Rh [place] 12-13-2024 ABO A [facility] Rh Nom (Bld) Positive [facility] BASIC METABOLIC PANELon 11-19 Anion gap [Moles/Vol] 10 mmol/L Normal 5-15 [facility] Comment on above: Performed By: #### B MP #### [facility] ([facility]) [address] [place] [address] VIR Calcium [Mass/Vol] 9.4 mg/dL Normal 8.5-10.5 [facility] Comment on above: Performed By: #### B MP #### [facility] ([facility]) [address] [place] [address] VIR Chloride [Moles/Vol] 106 mmol/L Normal 98-109 [facility] Comment on above: Performed By: #### B MP #### [facility] ([facility]) [address] [place] [address] VIR CO2 [Moles/Vol] 23 mmol/L Normal 22-32 [facility] Comment on above: Performed By: #### B MP #### [facility] ([facility]) [address] [place] [address] VIR Creatinine [Mass/Vol] 0.63 mg/dL Normal 0.40-1.00 [facility] Comment on above: Result Comment: METH OD TRACEABLE TO IDMS STANDARD Performed By: #### B MP #### [facility] ([facility]) [address] [place] [address] VIR EGFR (CKD-EPI) NON-RACE DEPENDENT >^90 Normal >=60 [facility] Comment on above: Result Comment: Repo rted eGFR is based on the CKD-EPI 2020 equation that does not use a race coefficient. Performed By: #### B MP #### [facility] ([facility]) [address] [place] [address] VIR Glucose [Mass/Vol] 130 mg/dL High 65-99 [facility] Comment on above: Performed By: #### B MP #### [facility] ([facility]) [address] [place] [address] VIR Potassium [Moles/Vol] 4.3 mmol/L Normal 3.5-5.0 [facility] Comment on above: Performed By: #### B MP #### [facility] ([facility]) [address] [place] [address] VIR Sodium [Moles/Vol] 139 mmol/L Normal 134-146 [facility] Comment on above: Performed By: #### B MP #### [facility] ([facility]) [address] [place] [address] VIR Urea nitrogen [Mass/Vol] 6 mg/dL Normal 5-27 [facility] Comment on above: Performed By: #### B MP #### [facility] ([facility]) [address] [place] [address] VIR BEDSIDE GLUCOSEon 12-13-2024 Glucose [Mass/Vol] 114 mg/dL High 65-99 [facility] Comment on above: Performed By: #### B EDG #### [facility] ([facility]) [address] [place] [place] [address] VIR Glucose [Mass/Vol] 119 mg/dL High 65-99 [facility] Comment on above: Performed By: #### B EDG #### [facility] ([facility]) [address] [place] [address] VIR Basic Metabolic Panelon 11-19 Anion gap [Moles/Vol] 10 mmol/L 5 - 15 mmol/L [facility] Calcium [Mass/Vol] 9.4 mg/dL 8.5 - 10. 5 mg/dL [facility] Chloride [Moles/Vol] 106 mmol/L 98 - 10 9 mmol/L [facility] CO2 [Moles/Vol] 23 mmol/L 22 - 32 mmol/L [facility] Creatinine [Mass/Vol] 0.63 mg/dL 0.40 - 1.00 mg/dL [facility] Comment on above: METHOD TRACEABLE TO IDNJ STANDARD EGFR Non-Race Dependent - PINF [facility] Comment on above: Reported eGFR is bas ed on the CKD-EPI 2020 equation that does not use a race coefficient. Glucose [Mass/Vol] 130 mg/dL High 65 - 99 mg/dL [facility] Interpretation and review of laboratory results Abnormal [facility] Potassium [Moles/Vol] 4.3 mmol/L 3.5 - 5.0 mmol/L [facility] Sodium [Moles/Vol] 139 mmol/L 134 - 146 mmol/L [facility] Urea nitrogen [Mass/Vol] 6 mg/dL 5 - 27 mg/dL [facility] Bedside Glucose *Place/Obtai n serum glucose if >500 per glucometer.on 12-13-2024 Glucose [Mass/Vol] 114 mg/dL High 65 - 99 mg/dL [facility] Interpretation and review of laboratory results Abnormal [facility] Glucose [Mass/Vol] 119 mg/dL High 65 - 99 mg/dL [facility] Interpretation and review of laboratory results Abnormal [facility] CBC WITH AUTO DIFFERENTIALon 12-13-2024 BASOPHILS ABSOLUTE COUNT (10*3/UL) BY AUTOMATED COUNT 0.0 10*3/uL Normal 0.0-0.2 [facility] Comment on above: Performed By: #### B MP #### [facility] ([facility]) [address] [place] [address] VIR BASOPHILS RELATIVE PERCENT BY AUTOMATED COUNT 0.9 % Normal [facility] Comment on above: Performed By: #### B MP #### [facility] ([facility]) [address] [place] [address] VIR CELLAVISION DIFFERENTIAL TYPE AUTOMATED DIFFERENTIAL Normal [facility] Comment on above: Performed By: #### B MP #### [facility] ([facility]) [address] [place] [address] VIR Eosinophils (Bld) [#/Vol] 0.1 10*3/uL Normal 0.0-0.4 [facility] Comment on above: Performed By: #### B MP #### [facility] ([facility]) [address] [place] [address] VIR EOSINOPHILS RELATIVE PERCENT BY AUTOMATED COUNT 1.7 % Normal [facility] Comment on above: Performed By: #### B MP #### [facility] ([facility]) [address] [place] [address] VIR Erythrocyte distribution width (RBC) [Ratio] 13.2 % Normal 11.5-15 [facility] Comment on above: Performed By: #### B MP #### [facility] ([facility]) [address] [place] [address] VIR Hematocrit (Bld) [Volume fraction] 33.7 % Low 35-47 [facility] Comment on above: Performed By: #### B MP #### [facility] ([facility]) [address] [place] [address] VIR Hemoglobin (Bld) [Mass/Vol] 11.6 g/dL Low 11.7-15.5 [facility] Comment on above: Performed By: #### B MP #### [facility] ([facility]) [address] [place] [address] VIR LYMPHOCYTES ABSOLUTE COUNT (10*3/UL) BY AUTOMATED COUNT 0.4 10*3/uL Low 1.0-3.5 [facility] Comment on above: Performed By: #### B MP #### [facility] ([facility]) [address] [place] [address] VIR LYMPHOCYTES RELATIVE PERCENT BY AUTOMATED COUNT 11.7 % Normal [facility] Comment on above: Performed By: #### B MP #### [facility] ([facility]) [address] [place] [address] VIR MCH (RBC) [Entitic mass] 30.8 pg Normal 27-34 [facility] Comment on above: Performed By: #### B MP #### [facility] ([facility]) [address] [facility] [address] [place] [address] VIR MCHC (RBC) [Mass/Vol] 34.4 g/dL Normal 32-36 [facility] Comment on above: Performed By: #### B MP #### [facility] ([facility]) [address] [place] [address] VIR MCV (RBC) [Entitic vol] 89 fL Normal 80-100 [facility] Comment on above: Performed By: #### B MP #### [facility] ([facility]) [address] [place] [address] VIR MONOCYTES ABSOLUTE COUNT (10*3/UL) BY AUTOMATED COUNT 0.1 10*3/uL Normal 0.0-0.9 [facility] Comment on above: Performed By: #### B MP #### [facility] ([facility]) [address] [place] [address] VIR MONOCYTES RELATIVE PERCENT BY AUTOMATED COUNT 2.7 % Normal [facility] Comment on above: Performed By: #### B MP #### [facility] ([facility]) [address] [place] [address] VIR NEUTROPHILS ABSOLUTE COUNT BY AUTOMATED COUNT 2.9 10*3/uL Normal 1.5-6.6 [facility] Comment on above: Performed By: #### B MP #### [facility] ([facility] [facility] [address] [place] [address] VIR NEUTROPHILS RELATIVE PERCENT BY AUTOMATED COUNT 83.0 % Normal [facility] Comment on above: Performed By: #### B MP #### [facility] ([facility]) [address] [place] [address] VIR Platelet mean volume (Bld) [Entitic vol] 7.3 fL Normal 7-12 [facility] Comment on above: Performed By: #### B MP #### [facility] ([facility]) [address] [place] [address] VIR Platelets (Bld) [#/Vol] 102 10*3/uL Low 150-450 [facility] Comment on above: Performed By: #### B MP #### [facility] ([facility]) [address] [place] [address] VIR RBC COUNT 3.76 X10E12/L Low 3.8-5.2 [facility] Comment on above: Performed By: #### B MP #### [facility] ([facility]) [address] [facility] [address] [place] [address] VIR WBC (Bld) [#/Vol] 3.5 10*3/uL Low 4-11 [facility] Comment on above: Performed By: #### B MP #### [facility] ([facility]) [address] [place] [address] VIR CBC auto differentialon 11-19 Basophils (Bld) [#/Vol] 0 10*3/uL 0.0 - 0.2 10*3/uL [facility] Basophils/100 WBC (Bld) 0.9 % [facility] Differential cell count method Nom (Bld) AUTOMATED DIFFERENTIAL Pr [facility] Eosinophils (Bld) [#/Vol] 0.1 10*3/uL 0.0 - 0.4 10*3/uL [facility] Eosinophils/100 WBC (Bld) 1.7 % [facility] Erythrocyte distribution width (RBC) [Ratio] 13.2 % 11.5 - 15 % [facility] Hematocrit (Bld) [Volume fraction] 33.7 % Low 35 - 47 % [facility] Hemoglobin (Bld) [Mass/Vol] 11.6 g/dL Low 11.7 - 15.5 g/dL [facility] Interpretation and review of laboratory results Abnormal [facility] Lymphocytes (Bld) [#/Vol] 0.4 10*3/uL Low 1.0 - 3.5 10*3/uL [facility] Lymphocytes/100 WBC (Bld) 11.7 % [facility] MCH (RBC) [Entitic mass] 30.8 pg 27 - 34 pg [facility] MCHC (RBC) [Mass/Vol] 34.4 g/dL 32 - 36 g/dL [facility] MCV (RBC) [Entitic vol] 89 fL 80 - 100 fL [facility] Monocytes (Bld) [#/Vol] 0.1 10*3/uL 0.0 - 0.9 10*3/uL [facility] Monocytes/100 WBC (Bld) 2.7 % [facility] Neutrophils (Bld) [#/Vol] 2.9 10*3/uL 1.5 - 6.6 10*3/uL [facility] Neutrophils/100 WBC (Bld) 83 % [facility] Platelet mean volume (Bld) [Entitic vol] 7.3 fL 7 - 12 fL [facility] Platelets (Bld) [#/Vol] 102 10*3/uL Low [facility] RBC (Bld) [#/Vol] 3.76 10*6/uL Low [facility] WBC LM Ql (Sput) 3.5 Low [facility] IONIZED MAGNESIUMon 12-14-19 25 Magnesium [Moles/Vol] 0.31 mmol/L Low 0.45-0.74 [facility] Comment on above: Performed By: #### I MAG #### [facility] ([facility]) [address] [place] [address] VIR Ionized magnesiumon 12-14-19 Interpretation and review of laboratory results Abnormal [facility] Magnesium Ionized ISE (Bld) [Moles/Vol] 0.31 mmol/L Low 0.45 - 0.74 mmol/L [facility] POCT ABG RAPID K GLU ICA HHo n 12-13-2024 BASE,DEFICIT -3.5 mmol/L Low 0.0-2.0 [facility] Comment on above: Performed By: #### A FAB5 #### [facility] ([facility]) [address] [place] [address] VIR Body temperature 98.6 [degF] Normal >=37 [facility] Comment on above: Performed By: #### A FAB5 #### [facility] ([facility]) [address] [place] [address] VIR Glucose [Mass/Vol] 104 mg/dL High 65-99 [facility] Comment on above: Performed By: #### A FAB5 #### [facility] ([facility]) [address] [place] [address] VIR HCO3 (Bld) [Moles/Vol] 21.5 mmol/L Low 22.0-26.0 P [facility] Comment on above: Performed By: #### A FAB5 #### [facility] ([facility]) [address] [place] [address] VIR Hematocrit (Bld) [Volume fraction] 38 % Normal 35-47 [facility] Comment on above: Performed By: #### A FAB5 #### [facility] ([facility]) [address] [place] [address] VIR Hemoglobin (Bld) [Mass/Vol] 12.4 g/dL Normal 11.7-15.5 [facility] Comment on above: Performed By: #### A FAB5 #### [facility] ([facility]) [address] [facility] [place] [address] VIR INSP. O2 CONC. 100.0 % Normal [facility] Comment on above: Performed By: #### A FAB5 #### [facility] ([facility]) [address] [facility] [address] VIR Oxygen saturation in Blood 100.5 % Normal >90.0 [facility] Comment on above: Performed By: #### A FAB5 #### [facility] ([facility]) [address] [place] [place] [address] VIR PCO2 ARTERIAL 35.8 mmHg Normal 35.0-45.0 [facility] Comment on above: Performed By: #### A FAB5 #### [facility] ([facility]) [address] [place] [address] VIR PH ARTERIAL 7.387 Normal 7.350-7.450 [facility] Comment on above: Performed By: #### A FAB5 #### [facility] ([facility]) [address] [place] [address] VIR PO2 ARTERIAL 219 mmHg High 80-100 [facility] Comment on above: Performed By: #### A FAB5 #### [facility] ([facility]) [address] [place] [address] VIR POC SHAR'S TEST Normal [facility] Comment on above: Performed By: #### A FAB5 #### [facility] ([facility]) [address] [place] [address] VIR PORTABLE ICA 4.8 mg/dL Normal 4.5-5.3 [facility] Comment on above: Performed By: #### A FAB5 #### [facility] ([facility]) [address] [facility] [place] [address] VIR Potassium [Moles/Vol] 4.0 mmol/L Normal 3.5-5.0 [facility] Comment on above: Performed By: #### A FAB5 #### [facility] ([facility]) [address] [place] [address] VIR SAMPLE SITE A LINE Normal [facility] Comment on above: Performed By: #### A FAB5 #### [facility] ([facility]) [address] [place] [address] VIR SAMPLE TYPE Arterial Normal [facility] Comment on above: Performed By: #### A FAB5 #### [facility] ([facility]) [address] [place] [address] VIR POCT ABG Rapid K GLU ICA HHo n 12-13-2024 Arterial patency Wrist artery --pre arterial puncture [facility] Base deficit (Bld) [Moles/Vol] -3.5000 mmol/L Low 0.0 - 2.0 mmol/L [facility] Calcium.ionized (Bld) [Moles/Vol] 4.8 mg/dL 4.5 - 5.3 mg/dL [facility] CO2 (Bld) [Partial pressure] 35.8 mm[Hg] [facility] Glucose [Mass/Vol] 104 mg/dL High 65 - 99 mg/dL [facility] HCO3 (Bld) [Moles/Vol] 21.5 mmol/L Low 22.0 - 26.0 mmol/L [facility] Hematocrit (Bld) [Volume fraction] 38 % 35 - 47 % [facility] Hemoglobin (Bld) [Mass/Vol] 12.4 g/dL 11.7 - 15.5 g/dL [facility] Interpretation and review of laboratory results Abnormal [facility] Oxygen (Bld) [Partial pressure] 219 mm[Hg] High [facility] Oxygen/Inspired gas setting [Volume Fraction] Ventilator 100.0 % [facility] pH (Bld) 7.387 [pH] 7.350 - 7.450 [facility] Potassium [Moles/Vol] 4 mmol/L 3.5 - 5.0 mmol/L [facility] Specimen site Narrative A LINE [facility] Specimen type Nom (Spec) Arterial [facility] REPEATED ABORHon 12-13-2024 ABO and Rh group Nom (Bld) ABORHR REPEATED ABORH Cancelled Normal [facility] TYPE AND SCREENon 12-13-2024 ABO_INTEP A Normal [facility] Comment on above: Performed By: #### T SC #### [facility] ([facility]) [address] [place] [address] VIR Performed By: #### A PIPO #### [facility] ([facility]) [address] [place] [address] VIR RH_INTEP Positive Normal [facility] Comment on above: Performed By: #### T WV #### [facility] ([facility]) [address] [place] [address] VIR Performed By: #### A PIPO #### [facility] ([facility]) [address] [place] [address] VIR Type and screen (Pre-op)on 0 12-13-2024 ABO A [facility] Rh Nom (Bld) Positive [facility] APTTon 12-10-2024 aPTT Coag (PPP) [Time] 38 s High Pr [facility] aPTT Coag (Bld) [Time] 38 s High 26-37 Pr [facility] Comment on above: Performed By: #### P TT #### [facility] ([facility]) [address] [place] [address] VIR BASIC METABOLIC PANELon 11-19 Anion gap [Moles/Vol] 10 mmol/L Normal 5-15 [facility] Comment on above: Performed By: #### B MP #### [facility] ([facility]) [address] [place] [address] VIR Calcium [Mass/Vol] 9.7 mg/dL Normal 8.5-10.5 [facility] Comment on above: Performed By: #### B MP #### [facility] ([facility]) [address] [place] [address] VIR Chloride [Moles/Vol] 101 mmol/L Normal 98-109 [facility] Comment on above: Performed By: #### B MP #### [facility] ([facility]) [address] [place] [address] VIR CO2 [Moles/Vol] 26 mmol/L Normal 22-32 [facility] Comment on above: Performed By: #### B MP #### [facility] ([facility]) [address] [place] [address] VIR Creatinine [Mass/Vol] 0.76 mg/dL Normal 0.40-1.00 [facility] Comment on above: Result Comment: METH OD TRACEABLE TO IDMS STANDARD Performed By: #### B MP #### [facility] ([facility]) [address] [place] [address] VIR GFR/1.73 sq M.predicted among non-blacks MDRD (S/P/Bld) [Vol rate/Area] 89 mL/min/{1.73_m2} Normal >=60 [facility] Comment on above: Result Comment: Repo rted eGFR is based on the CKD-EPI 2020 equation that does not use a race coefficient. Performed By: #### B MP #### [facility] ([facility]) [address] [place] [address] VIR Glucose [Mass/Vol] 108 mg/dL High 65-99 [facility] Comment on above: Performed By: #### B MP #### [facility] ([facility]) [address] [place] [address] VIR Potassium [Moles/Vol] 5.1 mmol/L High 3.5-5.0 [facility] Comment on above: Performed By: #### B MP #### [facility] ([facility]) [address] [place] [address] VIR Sodium [Moles/Vol] 137 mmol/L Normal 134-146 [facility] Comment on above: Performed By: #### B MP #### [facility] ([facility]) [address] [place] [address] VIR Urea nitrogen [Mass/Vol] 7 mg/dL Normal 5-27 [facility] Comment on above: Performed By: #### B MP #### [facility] ([facility]) [address] [place] [address] VIR Basic Metabolic Panelon 11-19 Anion gap [Moles/Vol] 10 mmol/L 5 - 15 mmol/L [facility] Calcium [Mass/Vol] 9.7 mg/dL 8.5 - 10. 5 mg/dL [facility] Chloride [Moles/Vol] 101 mmol/L 98 - 10 9 mmol/L [facility] CO2 [Moles/Vol] 26 mmol/L 22 - 32 mmol/L [facility] Creatinine [Mass/Vol] 0.76 mg/dL 0.40 - 1.00 mg/dL [facility] Comment on above: METHOD TRACEABLE TO IDNJ STANDARD EGFR Non-Race Dependent 89 - PINF [facility] Comment on above: Reported eGFR is bas ed on the CKD-EPI 2020 equation that does not use a race coefficient. Glucose [Mass/Vol] 108 mg/dL High 65 - 99 mg/dL [facility] Interpretation and review of laboratory results Abnormal [facility] Potassium [Moles/Vol] 5.1 mmol/L High 3.5 - 5.0 mmol/L [facility] Sodium [Moles/Vol] 137 mmol/L 134 - 146 mmol/L [facility] Urea nitrogen [Mass/Vol] 7 mg/dL 5 - 27 mg/dL [facility] CBCon 12-10-2024 Erythrocyte distribution width (RBC) [Ratio] 13.1 % 11.5 - 15 % [facility] Hematocrit (Bld) [Volume fraction] 39.6 % 35 - 47 % [facility] Hemoglobin (Bld) [Mass/Vol] 13.4 g/dL 11.7 - 15.5 g/dL [facility] Interpretation and review of laboratory results Abnormal [facility] MCH (RBC) [Entitic mass] 30.9 pg 27 - 34 pg [facility] MCHC (RBC) [Mass/Vol] 33.8 g/dL 32 - 36 g/dL [facility] MCV (RBC) [Entitic vol] 91 fL 80 - 100 fL [facility] Platelet mean volume (Bld) [Entitic vol] 7.8 fL 7 - 12 fL [facility] Platelets (Bld) [#/Vol] 147 10*3/uL Low [facility] RBC (Bld) [#/Vol] 4.33 10*6/uL [facility] WBC LM Ql (Sput) 5.1 [facility] CBC (NO DIFF)on 12-10-2024 Erythrocyte distribution width (RBC) [Ratio] 13.1 % Normal 11.5-15 [facility] Comment on above: Performed By: #### C BC #### [facility] ([facility]) [address] [place] [address] VIR Hematocrit (Bld) [Volume fraction] 39.6 % Normal 35-47 [facility] Comment on above: Performed By: #### C BC #### [facility] ([facility]) [address] [place] [address] VIR Hemoglobin (Bld) [Mass/Vol] 13.4 g/dL Normal 11.7-15.5 [facility] Comment on above: Performed By: #### C BC #### [facility] ([facility]) [address] [place] [address] VIR MCH (RBC) [Entitic mass] 30.9 pg Normal 27-34 [facility] Comment on above: Performed By: #### C BC #### [facility] ([facility]) [address] [place] [address] VIR MCHC (RBC) [Mass/Vol] 33.8 g/dL Normal 32-36 [facility] Comment on above: Performed By: #### C BC #### [facility] ([facility]) [address] [facility] [place] [address] VIR MCV (RBC) [Entitic vol] 91 fL Normal 80-100 [facility] Comment on above: Performed By: #### C BC #### [facility] ([facility]) [address] [place] [address] VIR Platelet mean volume (Bld) [Entitic vol] 7.8 fL Normal 7-12 [facility] Comment on above: Performed By: #### C BC #### [facility] ([facility]) [address] [place] [address] VIR Platelets (Bld) [#/Vol] 147 10*3/uL Low 150-450 [facility] Comment on above: Performed By: #### C BC #### [facility] ([facility]) [address] [place] [address] VIR RBC COUNT 4.33 X10E12/L Normal 3.8-5.2 [facility] Comment on above: Performed By: #### C BC #### [facility] ([facility]) [address] [place] [address] VIR WBC (Bld) [#/Vol] 5.1 10*3/uL Normal 4-11 [facility] Comment on above: Performed By: #### C BC #### [facility] ([facility]) [address] [place] [address] VIR No Panel Informationon 12-10 Interpretation and review of laboratory results Abnormal [facility] PROTIME AND INRon 12-10-2024 INR 1.3 High 0.9-1.2 [facility] Comment on above: Performed By: #### P INR #### [facility] ([facility]) [address] [place] [address] VIR PT Coag (PPP) [Time] 14.5 s High 9.8-13.2 [facility] Comment on above: Performed By: #### P INR #### [facility] ([facility]) 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 PROCEDURE: Automatic radiation exposure lowering techniques were utilized. Following the intravenous injection of 100 mL of Omnipaque 350, a CTA of the abdomen and pelvis and runoff of both lower extremities with 3-D reformats, including 3 -D Maximum intensity projection reconstructions constructed under concurrent physician supervision on a independent workstation . 3 D images obtained to improve visualization of vascular detail. All CT scans at this facility use dose modulation, iterative reconstruction, and/or weight based dosing when appropriate to reduce radiation dose to as low as reasonably achievable. FINDINGS: Comparison is CT dated 03/30/2015. There is mixed groundglass and solid nodule in the left lower lobe on axial slice #22 measuring 1.7 cm, could be infectious or neoplastic. Consider follow-up dedicated chest CT for further evaluation. Cholelithiasis. Nodular contour of the liver consistent with liver cirrhosis. Splenomegaly. Atrophic left kidney; atherosclerotic disease of the abdominal aorta and iliac arteries. There is separate origin of the common hepatic and splenic arteries from the aorta, at this level the aorta measures 2.5 cm. At the SMA the abdominal aorta measures 2.1 cm and below the renal arteries the aorta measures 1.8 cm. There is calcific atherosclerotic disease at the origin of the left renal artery causing an undetermined stenosis. Atherosclerotic disease causing mild narrowing of the common and external iliac arteries bilaterally. Right lower extremity runoff: Artifacts from right femur hardware compromise evaluation. Dense calcification in the common femoral artery obscured the lumen and causing moderate to severe stenosis, this is better evaluated with Doppler ultrasound. There is moderate to severe stenosis of the proximal SFA, and mild to moderate stenosis of the distal SFA. Patent popliteal artery with mild to moderate narrowing. Patent 3 vessel runoff, the dorsalis pedis is not opacified at the ankle level and may be significantly narrowed. There are posterior tibial artery can be followed into the foot. Left lower extremity runoff: Dense atherosclerotic plaques causing moderate stenosis of the common femoral artery, and moderate to severe stenosis at the origin of the SFA, better evaluated with Doppler. Patent SFA with moderate narrowing in the distal SFA and moderate to severe narrowing at the adductor habitus. There is mild to moderate narrowing of the popliteal artery and three-vessel runoff can be followed into the foot. IMPRESSION: 1. Left lower lobe makes nodule measuring 1.7 cm, could be benign or malignant; recommend follow-up dedicated chest CT and pulmonary consultation. 2. Cholelithiasis. 3. Liver cirrhosis and splenomegaly. 4. Atrophic left kidney with dense calcified plaque at the origin of the left renal artery obscuring the lumen. 5. Atherosclerotic disease of the abdominal aorta and iliac arteries with mild narrowing in the iliac arteries, not hemodynamically significant. 6. Dense calcified plaques in the common femoral arteries bilaterally causing moderate to severe stenosis in the common femoral arteries and at the origin of the SFA bilaterally (this is better evaluated with ultrasound). 7. Moderate narrowing of the distal SFA bilaterally. 8. Bilateral 3 vessel runoff, but no opacification of the distal right anterior tibial artery and dorsalis pedis, could be due to severe stenosis. Finalized by Frieda Aden MD on 11/20/2024 1:26 PM Normal [facility] CREATININE, SERUMon 11-16-19 25 Creatinine [Mass/Vol] 0.73 mg/dL Normal 0.40-1.00 [facility] Comment on above: Result Comment: METH OD TRACEABLE TO IDMS STANDARD Performed By: #### C RT #### [facility] ([facility]) [address] [facility] [place] [address] VIR EGFR (CKD-EPI) NON-RACE DEPENDENT >^90 Normal >=60 [facility] Comment on above: Result Comment: Repo rted eGFR is based on the CKD-EPI 2020 equation that does not use a race coefficient. Performed By: #### C RT #### [facility]) [address] [place] [id number] VIR ALBUMIN, RANDOM URINE W/CREA JEANNAon 11-06-2024 ALBUMIN, URINE 0.2 mg/dL Normal See Note: [facility] Comment on above: Order Comment: SPLIT 11/05/2024 FROM [id number] Result Comment: Fortino baeza Range: Reference Range Not established Performed By: #### 6 517 #### [facility] [address], [address] [place] [address] Senior Cyber Security Analyst: James Landry MD ALBUMIN/CREATININE RATIO, RANDOM URINE 2 mg/g creat Normal <30 [facility] Comment on above: Order Comment: SPLIT 11/05/2024 FROM [id number] Result Comment: The ADA defines abnormalities in albumin excretion as follows: Albuminuria Category Result (mg/g creatinine) Normal to Mildly increased <30 Moderately increased 30-299 Severely increased > OR = 300 The ADA recommends that at least two of three specimens collected within a 3-6 month period be abnormal before considering a patient to be within a diagnostic category. Performed By: #### 6 517 #### [facility] [address], [address] [place] [address] Senior Cyber Security Analyst: James Landry MD Creatinine (U) [Mass/Vol] 117 mg/dL Normal 20-275 [facility] Comment on above: Order Comment: SPLIT 11/05/2024 FROM [id number] Performed By: #### 6 517 #### [facility] [place] [address] Senior Cyber Security Analyst: James Landry MD CBC (INCLUDES DIFF/PLT)on Basophils (Bld) [#/Vol] 0.058 10*3/uL Normal 0-200 [facility] Comment on above: Performed By: #### 1 0231, 7600, 1699 #### [facility] [place] [address] Senior Cyber Security Analyst: James Landry MD Basophils/100 WBC (Bld) 1.0 % Normal [facility] Comment on above: Performed By: #### 1 0231, 7600, 6399 #### [facility] [place] [id number] Senior Cyber Security Analyst: James Landry MD Eosinophils (Bld) [#/Vol] 0.139 10*3/uL Normal 15-500 [facility] Comment on above: Performed By: #### 1 023, 7599, 6399 #### [facility] of [address], [address] [place] [address] Senior Cyber Security Analyst: James Landry MD Eosinophils/100 WBC (Bld) 2.4 % Normal [facility] Comment on above: Performed By: #### 1 023, 7599, 6399 #### [facility] of [place] [address] Senior Cyber Security Analyst: James Landry MD Erythrocyte distribution width (RBC) [Ratio] 12.1 % Normal 11.0-15.0 [facility] Comment on above: Performed By: #### 1 023, 7599, 6399 #### [facility] of [address], [address] [place] [address] Senior Cyber Security Analyst: James Landry MD Hematocrit (Bld) [Volume fraction] 42.3 % Normal 35.0-45.0 [facility] Comment on above: Performed By: #### 1 023, 7599, 6399 #### [facility] of [place] [address] Senior Cyber Security Analyst: James Landry MD Hemoglobin (Bld) [Mass/Vol] 13.5 g/dL Normal 11.7-15.5 [facility] Comment on above: Performed By: #### 1 023, 7599, 6399 #### [facility] of [address], [address] [place] [address] Senior Cyber Security Analyst: James Landry MD Lymphocytes (Bld) [#/Vol] 1.241 10*3/uL Normal 850-3900 [facility] Comment on above: Performed By: #### 1 023, 7599, 6399 #### [facility] of [place] [address] Senior Cyber Security Analyst: James Landry MD Lymphocytes/100 WBC (Bld) 21.4 % Normal [facility] Comment on above: Performed By: #### 1 230, 7599, 6399 #### [facility] [place] [address] Senior Cyber Security Analyst: James Landry MD MCH (RBC) [Entitic mass] 30.3 pg Normal 27.0-33.0 [facility] Comment on above: Performed By: #### 1 230, 7599, 6399 #### [facility] of [place] [address] Senior Cyber Security Analyst: James Landry MD MCHC (RBC) [Mass/Vol] 31.9 g/dL Low 32.0-36.[address] [facility] Comment on above: Result Comment: For adults, a slight decrease in the calculated MCHC value (in the range of 30 to 32 g/dL) is most likely not clinically significant; however, it should be interpreted with caution in correlation with other red cell parameters and the patient's clinical condition. Performed By: #### 1 230, 7599, 6399 #### [facility] [place] [address] Senior Cyber Security Analyst: James Landry MD MCV (RBC) [Entitic vol] 94.8 fL Normal 80.0-100.0 [facility] Comment on above: Performed By: #### 1 230, 7599, 6399 #### [facility] [place] [address] Senior Cyber Security Analyst: James Landry MD Monocytes (Bld) [#/Vol] 0.545 10*3/uL Normal 200-950 [facility] Comment on above: Performed By: #### 1 230, 7599, 6399 #### [facility] [place] [address] Senior Cyber Security Analyst: James Landry MD Monocytes/100 WBC (Bld) 9.4 % Normal [facility] Comment on above: Performed By: #### 1 230, 7599, 6399 #### [facility] of [address], [address] [place] [address] Senior Cyber Security Analyst: James Landry MD Neutrophils (Bld) [#/Vol] 3.816 10*3/uL Normal 6149-9030 [facility] Comment on above: Performed By: #### 1 0231, 0, 6399 #### [facility] of [address], [address] [place] [address] Senior Cyber Security Analyst: James Landry MD Neutrophils/100 WBC (Bld) 65.8 % Normal [facility] Comment on above: Performed By: #### 1 0231, 7599, 6399 #### [facility] of [address], [address] [place] [address] Senior Cyber Security Analyst: James Landry MD Platelet mean volume (Bld) [Entitic vol] 10.0 fL Normal 7.5-12.5 [facility] Comment on above: Performed By: #### 1 023, 7599, 6399 #### [facility] of [address], [address] [place] [address] Senior Cyber Security Analyst: James Landry MD Platelets (Bld) [#/Vol] 210 10*3/uL Normal 140-400 [facility] Comment on above: Performed By: #### 1 023, 7599, 6399 #### [facility] of [address], [address] [place] [address] Senior Cyber Security Analyst: James Landry MD RBC (Bld) [#/Vol] 4.46 10*6/uL Normal 3.80-5.10 [facility] Comment on above: Performed By: #### 1 0231, 0, 6399 #### [facility] of [address], [address] [place] [address] Senior Cyber Security Analyst: James Landry MD WBC (Bld) [#/Vol] 5.8 10*3/uL Normal 3.8-10.8 [facility] Comment on above: Performed By: #### 1 0231, 7599, 6399 #### [facility] of [address], [address] [place] [address] Senior Cyber Security Analyst: James Landry MD [facility] 11-06-2024 Albumin [Mass/Vol] 4.2 g/dL Normal 3.6-5.1 [facility] Comment on above: Performed By: #### 1 0231, 7600, 6399 #### [facility] of [address], [address] [place] [address] Senior Cyber Security Analyst: James Landry MD Albumin/Globulin [Mass ratio] 1.3 {ratio} Normal 1.0-2.5 [facility] Comment on above: Performed By: #### 1 0231, 7600, 6399 #### [facility] of [address], [address] [place] [address] Senior Cyber Security Analyst: James Landry MD ALP [Catalytic activity/Vol] 92 U/L Normal 37-153 [facility] Comment on above: Performed By: #### 1 0231, 0, 6399 #### [facility] of [address], [address] [place] [address] Senior Cyber Security Analyst: James Landry MD ALT [Catalytic activity/Vol] 12 U/L Normal 6-29 [facility] Comment on above: Performed By: #### 1 0231, 7600, 6399 #### [facility] of [address], [address] [place] [address] Senior Cyber Security Analyst: James Landry MD AST [Catalytic activity/Vol] 23 U/L Normal 10-35 [facility] Comment on above: Performed By: #### 1 0231, 7600, 6399 #### [facility] of [address], [address] [place] [address] Senior Cyber Security Analyst: James Landry MD Bilirubin [Mass/Vol] 1.1 mg/dL Normal 0.2-1.2 [facility] Comment on above: Performed By: #### 1 0231, 7600, 6399 #### [facility] of [address], [address] [place] [address] Senior Cyber Security Analyst: James Landry MD BUN/CREATININE RATIO SEE NOTE: Normal 6-22 [facility] Comment on above: Result Comment: Not Reported: BUN and Creatinine are within reference range. Performed By: #### 1 0231, 7600, 6399 #### [facility] of [address], [address] [place] [address] Senior Cyber Security Analyst: James Landry MD Calcium [Mass/Vol] 9.7 mg/dL Normal 8.6-10.4 [facility] Comment on above: Performed By: #### 1 0231, 0, 6399 #### [facility] of [address], [address] [place] [address] Senior Cyber Security Analyst: James Landry MD Chloride [Moles/Vol] 99 mmol/L Normal 98-110 [facility] Comment on above: Performed By: #### 1 0231, 7599, 6399 #### [facility] of [address], [address] [place] [address] Senior Cyber Security Analyst: James Landry MD CO2 [Moles/Vol] 24 mmol/L Normal 20-32 [facility] Comment on above: Performed By: #### 1 023, 7599, 6399 #### [facility] of [address], [address] [place] [address] Senior Cyber Security Analyst: James Landry MD Creatinine [Mass/Vol] 0.75 mg/dL Normal 0.50-1.05 Pending Sale To [facility] Comment on above: Performed By: #### 1 0231, 7599, 6399 #### [facility] of [address], [address] [place] [address] Senior Cyber Security Analyst: James Landry MD GFR/1.73 sq M.predicted among non-blacks MDRD (S/P/Bld) [Vol rate/Area] 91 mL/min/{1.73_m2} Normal > OR = 60 [facility] Comment on above: Performed By: #### 1 0231, 0, 6399 #### [facility] of [address], [address] [place] [address] Senior Cyber Security Analyst: James Landry MD Globulin (S) [Mass/Vol] 3.2 g/dL Normal 1.9-3.7 [facility] Comment on above: Performed By: #### 1 0231, 7600, 6399 #### [facility] of [place] [address] Senior Cyber Security Analyst: James Landry MD Glucose [Mass/Vol] 100 mg/dL High 65-99 [facility] Comment on above: Result Comment: Fasting reference interval For someone without known diabetes, a glucose value between 100 and 125 mg/dL is consistent with prediabetes and should be confirmed with a follow-up test. Performed By: #### 1 0231, 0, 6399 #### [facility] [place] [address] Senior Cyber Security Analyst: James Landry MD Potassium [Moles/Vol] 4.6 mmol/L Normal 3.5-5.3 [facility] Comment on above: Performed By: #### 1 023, 7599, 6399 #### [facility] [place] [address] Senior Cyber Security Analyst: James Landry MD Protein [Mass/Vol] 7.4 g/dL Normal 6.1-8.1 [facility] Comment on above: Performed By: #### 1 023, 7599, 6399 #### [facility] [place] [address] Senior Cyber Security Analyst: James Landry MD Sodium [Moles/Vol] 134 mmol/L Low 135-146 [facility] Comment on above: Performed By: #### 1 0231, 7600, 6399 #### [facility] of [place] [address] Senior Cyber Security Analyst: James Landry MD Urea nitrogen [Mass/Vol] 11 mg/dL Normal 7-25 [facility] Comment on above: Performed By: #### 1 0231, 0, 6399 #### [facility] of [place] [id number] Senior Cyber Security Analyst: James Landry MD LIPID PANEL, [facility] 10-19 Cholesterol [Mass/Vol] 149 mg/dL Normal <200 [facility] Comment on above: Order Comment: FASTI NG:YES MULTIPLE TESTING PRIORITIES; ROUTINE TESTING TO FOLLOW. FASTING: YES Performed By: #### 1 0231, 7600, 6399 #### [facility] [address], [address] [place] [address] Senior Cyber Security Analyst: James Landry MD Cholesterol in HDL [Mass/Vol] 46 mg/dL Low > OR = 50 [facility] Comment on above: Order Comment: FASTI NG:YES MULTIPLE TESTING PRIORITIES; ROUTINE TESTING TO FOLLOW. FASTING: YES Performed By: #### 1 0231, 7600, 6399 #### [facility] [address], [address] [place] [address] Senior Cyber Security Analyst: James Landry MD Cholesterol in LDL [Mass/Vol] 84 mg/dL Normal [facility] Comment on above: Order Comment: FASTI NG:YES MULTIPLE TESTING PRIORITIES; ROUTINE TESTING TO FOLLOW. FASTING: YES Result Comment: Refe rence range: <100 Desirable range <100 mg/dL for primary prevention; <70 mg/dL for patients with CHD or diabetic patients with > or = 2 CHD risk factors. LDL-C is now calculated using the Arthur-Nitin calculation, which is a validated novel method providing better accuracy than the Friedewald equation in the estimation of LDL-C. Arthur SS et al. DERICK. 2013;310(19): 1878-6545 (http://education.Xceedium.PixelOptics/faq/OFX388) Performed By: #### 1 0231, 7600, 6399 #### [facility] [address], [address] [place] [address] Senior Cyber Security Analyst: James Landry MD Cholesterol.total/Chol esterol in HDL [Mass ratio] 3.2 {ratio} Normal <5.0 [facility] Comment on above: Order Comment: FASTI NG:YES MULTIPLE TESTING PRIORITIES; ROUTINE TESTING TO FOLLOW. FASTING: YES Performed By: #### 1 0231, 7600, 6399 #### [facility] [address], [address] [place] [address] Senior Cyber Security Analyst: James Landry MD NON HDL CHOLESTEROL 103 mg/dL (calc) Normal <130 [facility] Comment on above: Order Comment: FASTI NG:YES MULTIPLE TESTING PRIORITIES; ROUTINE TESTING TO FOLLOW. FASTING: YES Result Comment: For patients with diabetes plus 1 major ASCVD risk factor, treating to a non-HDL-C goal of <100 mg/dL (LDL-C of <70 mg/dL) is considered a therapeutic option. Performed By: #### 1 0231, 7600, 6399 #### [facility] [address], [address] [place] [address] Senior Cyber Security Analyst: James Landry MD Triglyceride [Mass/Vol] 99 mg/dL Normal <150 [facility] Comment on above: Order Comment: FASTI NG:YES MULTIPLE TESTING PRIORITIES; ROUTINE TESTING TO FOLLOW. FASTING: YES Performed By: #### 1 0231, 7600, 6399 #### [facility] [address], [address] [place] [address] Senior Cyber Security Analyst: James Landry MD Laboratory - Hematology and Cell countson 11-05-2024 HbA1c (Bld) [Mass fraction] 5.4 % [facility] No Panel Informationon 11-05 Interpretation and review of laboratory results Normal Count includes the [facility] XR Wrist - right 2 Viewson 0 10-15-2024 Imaging Result: 10/15/2024: AP and lateral of the right wrist showed evidence of increased callus formation at the fracture site compared to prior x-rays. There was no acute bony process including but not limited to displacement of current fracture and/or new fracture. Impression: Healing right distal radius fracture Brian Nesbitt SCRATCH BRUSHER-RAILWAY SIGNAL TECHNICIAN Count includes the [facility] Radiology Study observation (narrative) [facility] XR Wrist - right 2 Viewson 0 09-17-2024 Imaging Result: 09/17/2024: AP and lateral of the right wrist showed evidence of lucency through the distal radius consistent with nondisplaced distal radius fracture. There was no acute bony process including but not limited to displacement of current fracture and/or ulnar styloid fracture Impression: suspected nondisplaced right distal radius fracture Brian Nesbitt SCRATCH BRUSHER[employer]RAILWAY SIGNAL TECHNICIAN Count includes the [facility] Radiology Study observation (narrative) [facility] XR WRIST 3+ VIEWS RIGHTon XR WRIST 3+ VIEWS RIGHT Exam: XR WRIST 3+ VIEWS RIGHT Reason for exam: Fall yesterday, pain across right wrist Prior comparative studies: None Findings: No malalignment is apparent. There is an equivocal nondisplaced fracture line through the ulnar styloid on the frontal view. This is difficult to confirm on additional views, however. There is mild sclerosis and joint space narrowing in the radiocarpal space. Sclerosis with osteophyte formation at the thumb MCP joint is present. Alignment on the lateral view appears intact. IMPRESSION: 1. Equivocal nondisplaced ulnar styloid fracture. Again, this is difficult to confirm. A repeat radiograph in 5-7 days if symptoms persist is recommended. 2. Degenerative changes. Dictated on: 09/13/2024 8:46 AM This report has been electronically signed and approved by the interpreting radiologist. Normal Not Available AFP Tumor Marker, Serumon AFP Tumor Marker, Serum 6.0 ng/mL Normal 0.0-9.2 [facility] Comment on above: Result Comment: [facility] Electrochemiluminescence Immunoassay (ECLIA) Values obtained with different assay methods or kits cannot be used interchangeably. Results cannot be interpreted as absolute evidence of the presence or absence of malignant disease. This test is not interpretable in females. Performed at: [facility] [id number] Brand Executive: Gonzales Poe PhD, Phone: [phone] PERFORMED BY: [place] [address] PATHOLOGIST SENIOR ENVIRONMENTAL CONSULTANT RAULITO KWAN M.D. Performed By: #### H BSAG, SMAB, CERULOP, HBSAB, ALPHA PHEN, HBCAB, HCV RX PCR, NIYA CHOICE #### [facility] , #### PT, HEPATIC, CBC, LIPID, FE and TIBC, ALLYSON #### [address] Alanine aminotransferase [En zymatic activity/volume] in Serum or PlasmaOrdered By: Wes Hadley on 06-28-2024 ALT [Catalytic activity/Vol] Alanine aminotransferase [Enzymatic activity/volume] in Serum or Plasma 7-52 [facility] Albumin [Mass/volume] in Ser um or Plasma by Bromocresol green (BCG) dye binding methoOrdered By: Wes Hadley on 06-28-2024 Albumin BCG dye [Mass/Vol] Albumin [Mass/volume] in Serum or Plasma by Bromocresol green (BCG) dye binding metho 3.5-5.7 [facility] Alkaline phosphatase [Enzyma tic activity/volume] in Serum or PlasmaOrdered By: Wes Hadley on 06-28-2024 ALP [Catalytic activity/Vol] Alkaline phosphatase [Enzymatic activity/volume] in Serum or Plasma 34-104 [facility] Aspartate aminotransferase [ Enzymatic activity/volume] in Serum or PlasmaOrdered By: Wes Hadley on 06-28-2024 AST [Catalytic activity/Vol] Aspartate aminotransferase [Enzymatic activity/volume] in Serum or Plasma 13-39 [facility] Basophils Auto (Bld) [#/Vol] Ordered By: Wes Hadley on 06-28-2024 Basophils (Bld) [#/Vol] Automated basophil count 0.0-0.2 [facility] Basophils/100 WBC Auto (Bld) Ordered By: Wes Hadley on 06-28-2024 Basophils/100 WBC (Bld) Automated basophil % . [facility] Bilirubin.total [Mass/volume ] in Serum or PlasmaOrdered By: Wes Hadley on 06-28-2024 Bilirubin [Mass/Vol] Bilirubin.total [Mass/volume] in Serum or Plasma High 0.3-1.0 [facility] Comment on above: Samples from patient s who have taken Naproxen have shown spurious elevation in Total Bilirubin levels. A metabolite of Naproxen, O-desmethylnaproxen, has been shown to interfere with the Baudilio method for measuring Total Bilirubin. Calcium [Mass/volume] in Ser um or PlasmaOrdered By: Wes Hadley on 06-28-2024 Calcium [Mass/Vol] Calcium [Mass/volume ] in Serum or Plasma 8.6-10.3 [facility] Carbon dioxide, total [Moles /volume] in Serum or PlasmaOrdered By: Wes Hadley on 06-28-2024 CO2 [Moles/Vol] Carbon dioxide, tota l [Moles/volume] in Serum or Plasma 21.0-31.0 [facility] Chloride [Moles/volume] in S warner or PlasmaOrdered By: Wes Hadley on 06-28-2024 Chloride [Moles/Vol] Chloride [Moles/vol ume] in Serum or Plasma Low 98-107 [facility] Complete Blood Count Auto Di ffon 06-28-2024 Basophils (Bld) [#/Vol] 0.0 10*3/uL Normal 0.0-0.2 [facility] Comment on above: Result Comment: PERF ORMED BY: [place] [address] PATHOLOGIST SENIOR ENVIRONMENTAL CONSULTANT RAULTIO KWAN M.D. Performed By: #### H BSAG, SMAB, CERULOP, HBSAB, ALPHA PHEN, HBCAB, HCV RX PCR, NIYA CHOICE #### [facility] , #### PT, HEPATIC, CBC, LIPID, FE and TIBC, ALLYSON #### [facility] [address] [place] [address] Basophils/100 WBC (Bld) 1.1 % Normal . [facility] Comment on above: Performed By: #### H BSAG, SMAB, CERULOP, HBSAB, ALPHA PHEN, HBCAB, HCV RX PCR, NIYA CHOICE #### [facility] , #### PT, HEPATIC, CBC, LIPID, FE and TIBC, ALLYSON #### [facility] [address] [place] [address] Eosinophils (Bld) [#/Vol] 0.1 10*3/uL Normal 0.0-0.45 [facility] Comment on above: Performed By: #### H BSAG, SMAB, CERULOP, HBSAB, ALPHA PHEN, HBCAB, HCV RX PCR, NIYA CHOICE #### [facility] , #### PT, HEPATIC, CBC, LIPID, FE and TIBC, ALLYSON #### [address] Eosinophils/100 WBC (Bld) 3.4 % Normal . [facility] Comment on above: Performed By: #### H BSAG, SMAB, CERULOP, HBSAB, ALPHA PHEN, HBCAB, HCV RX PCR, NIYA CHOICE #### [facility] , #### PT, HEPATIC, CBC, LIPID, FE and TIBC, ALLYSON #### [address] Erythrocyte distribution width (RBC) [Ratio] 14.9 % Normal 11.9-15.3 [facility] Comment on above: Performed By: #### H BSAG, SMAB, CERULOP, HBSAB, ALPHA PHEN, HBCAB, HCV RX PCR, NIYA CHOICE #### [facility] , #### PT, HEPATIC, CBC, LIPID, FE and TIBC, ALLYSON #### [address] Hematocrit (Bld) [Volume fraction] 34.4 % Normal 34.0-46.4 [facility] Comment on above: Performed By: #### H BSAG, SMAB, CERULOP, HBSAB, ALPHA PHEN, HBCAB, HCV RX PCR, NIYA CHOICE #### [facility] , #### PT, HEPATIC, CBC, LIPID, FE and TIBC, ALLYSON #### [address] Hemoglobin (Bld) [Mass/Vol] 11.8 g/dL Normal 11.8-15.4 [facility] Comment on above: Performed By: #### H BSAG, SMAB, CERULOP, HBSAB, ALPHA PHEN, HBCAB, HCV RX PCR, NIYA CHOICE #### [facility] , #### PT, HEPATIC, CBC, LIPID, FE and TIBC, ALLYSON #### [address] Lymphocytes (Bld) [#/Vol] 0.9 10*3/uL Low 1.00-4.8 [facility] Comment on above: Performed By: #### H BSAG, SMAB, CERULOP, HBSAB, ALPHA PHEN, HBCAB, HCV RX PCR, NIYA CHOICE #### [facility] , #### PT, HEPATIC, CBC, LIPID, FE and TIBC, ALLYSON #### [address] Lymphocytes/100 WBC (Bld) 25.5 % Normal . [facility] Comment on above: Performed By: #### H BSAG, SMAB, CERULOP, HBSAB, ALPHA PHEN, HBCAB, HCV RX PCR, NIYA CHOICE #### [facility] , #### PT, HEPATIC, CBC, LIPID, FE and TIBC, ALLYSON #### [address] MCH (RBC) [Entitic mass] 30.1 pg Normal 24.7-34.3 [facility] Comment on above: Performed By: #### H BSAG, SMAB, CERULOP, HBSAB, ALPHA PHEN, HBCAB, HCV RX PCR, NIYA CHOICE #### [facility] , #### PT, HEPATIC, CBC, LIPID, FE and TIBC, ALLYSON #### [address] MCV (RBC) [Entitic vol] 87.7 fL Normal 80-100 [facility] Comment on above: Performed By: #### H BSAG, SMAB, CERULOP, HBSAB, ALPHA PHEN, HBCAB, HCV RX PCR, NIYA CHOICE #### [facility] , #### PT, HEPATIC, CBC, LIPID, FE and TIBC, ALLYSON #### [address] Mean Corpuscular HGB Conc 34.3 g/dL Normal 32.0-35.0 [facility] Comment on above: Performed By: #### H BSAG, SMAB, CERULOP, HBSAB, ALPHA PHEN, HBCAB, HCV RX PCR, NIYA CHOICE #### [facility] , #### PT, HEPATIC, CBC, LIPID, FE and TIBC, ALLYSON #### [address] Monocytes (Bld) [#/Vol] 0.5 10*3/uL Normal 0.0-0.8 [facility] Comment on above: Performed By: #### H BSAG, SMAB, CERULOP, HBSAB, ALPHA PHEN, HBCAB, HCV RX PCR, NIYA CHOICE #### [facility] , #### PT, HEPATIC, CBC, LIPID, FE and TIBC, ALLYSON #### [address] Monocytes/100 WBC (Bld) 12.9 % Normal . [facility] Comment on above: Performed By: #### H BSAG, SMAB, CERULOP, HBSAB, ALPHA PHEN, HBCAB, HCV RX PCR, NIYA CHOICE #### [facility] , #### PT, HEPATIC, CBC, LIPID, FE and TIBC, ALLYSON #### [address] Neutrophils (Bld) [#/Vol] 2.1 10*3/uL Normal 1.8-7.7 [facility] Comment on above: Performed By: #### H BSAG, SMAB, CERULOP, HBSAB, ALPHA PHEN, HBCAB, HCV RX PCR, NIYA CHOICE #### [facility] , #### PT, HEPATIC, CBC, LIPID, FE and TIBC, ALLYSON #### [address] Neutrophils/100 WBC (Bld) 57.1 % Normal . [facility] Comment on above: Performed By: #### H BSAG, SMAB, CERULOP, HBSAB, ALPHA PHEN, HBCAB, HCV RX PCR, NIYA CHOICE #### [facility] , #### PT, HEPATIC, CBC, LIPID, FE and TIBC, ALLYSON #### [address] NRBC% 0.2 /100{WBC} Normal 0-0.5 [facility] Comment on above: Performed By: #### H BSAG, SMAB, CERULOP, HBSAB, ALPHA PHEN, HBCAB, HCV RX PCR, NIYA CHOICE #### [facility] , #### PT, HEPATIC, CBC, LIPID, FE and TIBC, ALLYSON #### [address] Platelet mean volume (Bld) [Entitic vol] 8.3 fL Normal 6.3-10.7 [facility] Comment on above: Performed By: #### H BSAG, SMAB, CERULOP, HBSAB, ALPHA PHEN, HBCAB, HCV RX PCR, NIYA CHOICE #### [facility] , #### PT, HEPATIC, CBC, LIPID, FE and TIBC, ALLYSON #### [address] Platelets (Bld) [#/Vol] 137 10*3/uL Low 150-450 [facility] Comment on above: Performed By: #### H BSAG, SMAB, CERULOP, HBSAB, ALPHA PHEN, HBCAB, HCV RX PCR, NIYA CHOICE #### [facility] , #### PT, HEPATIC, CBC, LIPID, FE and TIBC, ALLYSON #### [address] RBC (Bld) [#/Vol] 3.92 10*6/uL Normal 3.60-5.00 [facility] Comment on above: Performed By: #### H BSAG, SMAB, CERULOP, HBSAB, ALPHA PHEN, HBCAB, HCV RX PCR, NIYA CHOICE #### [facility] , #### PT, HEPATIC, CBC, LIPID, FE and TIBC, ALLYSON #### [address] WBC (Bld) [#/Vol] 3.6 10*3/uL Low 3.8-11.6 [facility] Comment on above: Performed By: #### H BSAG, SMAB, CERULOP, HBSAB, ALPHA PHEN, HBCAB, HCV RX PCR, NIYA CHOICE #### [facility] , #### PT, HEPATIC, CBC, LIPID, FE and TIBC, ALLYSON #### [address] Comprehensive Metabolic Pane eli 06-28-2024 Albumin [Mass/Vol] 3.8 g/dL Normal 3.5-5.7 [facility] Comment on above: Performed By: #### H BSAG, SMAB, CERULOP, HBSAB, ALPHA PHEN, HBCAB, HCV RX PCR, NIYA CHOICE #### [facility] , #### PT, HEPATIC, CBC, LIPID, FE and TIBC, ALLYSON #### [address] Albumin/Globulin [Mass ratio] 1.3 {ratio} Normal [facility] Comment on above: Performed By: #### H BSAG, SMAB, CERULOP, HBSAB, ALPHA PHEN, HBCAB, HCV RX PCR, NIYA CHOICE #### [facility] , #### PT, HEPATIC, CBC, LIPID, FE and TIBC, ALLYSON #### [address] ALP [Catalytic activity/Vol] 92 U/L Normal 34-104 [facility] Comment on above: Result Comment: PERF ORMED BY: [place] [address] PATHOLOGIST SENIOR ENVIRONMENTAL CONSULTANT RAULITO KWAN M.D. Performed By: #### H BSAG, SMAB, CERULOP, HBSAB, ALPHA PHEN, HBCAB, HCV RX PCR, NIYA CHOICE #### [facility] , #### PT, HEPATIC, CBC, LIPID, FE and TIBC, ALLYSON #### [address] ALT [Catalytic activity/Vol] 17 U/L Normal 7-52 [facility] [employer] [facility] Comment on above: Performed By: #### H BSAG, SMAB, CERULOP, HBSAB, ALPHA PHEN, HBCAB, HCV RX PCR, NIYA CHOICE #### [facility] , #### PT, HEPATIC, CBC, LIPID, FE and TIBC, ALLYSON #### [address] Anion gap [Moles/Vol] 11.9 mmol/L Normal 6.0-15.0 [facility] Comment on above: Performed By: #### H BSAG, SMAB, CERULOP, HBSAB, ALPHA PHEN, HBCAB, HCV RX PCR, NIYA CHOICE #### [facility] , #### PT, HEPATIC, CBC, LIPID, FE and TIBC, ALLYSON #### [address] AST [Catalytic activity/Vol] 34 U/L Normal 13-39 [facility] Comment on above: Performed By: #### H BSAG, SMAB, CERULOP, HBSAB, ALPHA PHEN, HBCAB, HCV RX PCR, NIYA CHOICE #### [facility] , #### PT, HEPATIC, CBC, LIPID, FE and TIBC, ALLYSON #### [address] Bilirubin [Mass/Vol] 1.4 mg/dL High 0.3-1.0 [facility] Comment on above: Result Comment: Samp les from patients who have taken Naproxen have shown spurious elevation in Total Bilirubin levels. A metabolite of Naproxen, O-desmethylnaproxen, has been shown to interfere with the Jencarrol-Melo method for measuring Total Bilirubin. Performed By: #### H BSAG, SMAB, CERULOP, HBSAB, ALPHA PHEN, HBCAB, HCV RX PCR, NIYA CHOICE #### [facility] , #### PT, HEPATIC, CBC, LIPID, FE and TIBC, ALLYSON #### [address] Calcium [Mass/Vol] 9.8 mg/dL Normal 8.6-10.3 [facility] Comment on above: Performed By: #### H BSAG, SMAB, CERULOP, HBSAB, ALPHA PHEN, HBCAB, HCV RX PCR, NIYA CHOICE #### [facility] , #### PT, HEPATIC, CBC, LIPID, FE and TIBC, ALLYSON #### [address] Chloride [Moles/Vol] 95 mmol/L Low 98-107 [facility] Comment on above: Performed By: #### H BSAG, SMAB, CERULOP, HBSAB, ALPHA PHEN, HBCAB, HCV RX PCR, NIYA CHOICE #### [facility] , #### PT, HEPATIC, CBC, LIPID, FE and TIBC, ALLYSON #### [address] CO2 [Moles/Vol] 26.3 mmol/L Normal 21.0-31.0 [facility] Comment on above: Performed By: #### H BSAG, SMAB, CERULOP, HBSAB, ALPHA PHEN, HBCAB, HCV RX PCR, NIYA CHOICE #### [facility] , #### PT, HEPATIC, CBC, LIPID, FE and TIBC, ALLYSON #### [address] Creatinine [Mass/Vol] 0.60 mg/dL Normal 0.60-1.20 [facility] Comment on above: Performed By: #### H BSAG, SMAB, CERULOP, HBSAB, ALPHA PHEN, HBCAB, HCV RX PCR, NIYA CHOICE #### [facility] , #### PT, HEPATIC, CBC, LIPID, FE and TIBC, ALLYSON #### [address] GFR/1.73 sq M.predicted MDRD (S/P/Bld) [Vol rate/Area] mL/min/{1.73_m2} Normal [facility] Comment on above: Performed By: #### H BSAG, SMAB, CERULOP, HBSAB, ALPHA PHEN, HBCAB, HCV RX PCR, NIYA CHOICE #### [facility] , #### PT, HEPATIC, CBC, LIPID, FE and TIBC, ALLYSON #### [address] Globulin (S) [Mass/Vol] 3.0 g/dL Normal [facility] Comment on above: Performed By: #### H BSAG, SMAB, CERULOP, HBSAB, ALPHA PHEN, HBCAB, HCV RX PCR, NIYA CHOICE #### [facility] , #### PT, HEPATIC, CBC, LIPID, FE and TIBC, ALLYSON #### [address] Glucose [Mass/Vol] 71 mg/dL Normal 70-100 [facility] Comment on above: Result Comment: [facility] Glucose Reference Range is dependent on time and content of last meal. Glucose of more than 200 mg/dL in a nonstressed, ambulatory subject supports the diagnosis of Diabetes Mellitus. ADA recommended reference range Performed By: #### H BSAG, SMAB, CERULOP, HBSAB, ALPHA PHEN, HBCAB, HCV RX PCR, NIYA CHOICE #### [facility] , #### PT, HEPATIC, CBC, LIPID, FE and TIBC, ALLYSON #### [address] Potassium [Moles/Vol] 4.2 mmol/L Normal 3.5-5.1 [facility] Comment on above: Performed By: #### H BSAG, SMAB, CERULOP, HBSAB, ALPHA PHEN, HBCAB, HCV RX PCR, NIYA CHOICE #### [facility] , #### PT, HEPATIC, CBC, LIPID, FE and TIBC, ALLYSON #### [address] Protein [Mass/Vol] 6.8 g/dL Normal 6.4-8.9 [facility] Comment on above: Performed By: #### H BSAG, SMAB, CERULOP, HBSAB, ALPHA PHEN, HBCAB, HCV RX PCR, NIYA CHOICE #### [facility] , #### PT, HEPATIC, CBC, LIPID, FE and TIBC, ALLYSON #### [facility] [address] Sodium [Moles/Vol] 129 mmol/L Low 136-145 [facility] Comment on above: Performed By: #### H BSAG, SMAB, CERULOP, HBSAB, ALPHA PHEN, HBCAB, HCV RX PCR, NIYA CHOICE #### [facility] , #### PT, HEPATIC, CBC, LIPID, FE and TIBC, ALLYSON #### [address] Urea nitrogen [Mass/Vol] 5 mg/dL Low 7-25 [facility] Comment on above: Performed By: #### H BSAG, SMAB, CERULOP, HBSAB, ALPHA PHEN, HBCAB, HCV RX PCR, NIYA CHOICE #### [facility] , #### PT, HEPATIC, CBC, LIPID, FE and TIBC, ALLYSON #### [address] Creatinine [Mass/volume] in Serum or PlasmaOrdered By: Wes Hadley on 06-28-2024 Creatinine [Mass/Vol] Creatinine [Mass/v olume] in Serum or Plasma 0.60-1.20 [facility] Eosinophils Auto (Bld) [#/Vo l]Ordered By: Wes Hadley on 06-28-2024 Eosinophils (Bld) [#/Vol] Automated eosinophil count 0.0-0.45 [facility] Eosinophils/100 WBC Auto (Bl d)Ordered By: Wes Hadley on 06-28-2024 Eosinophils/100 WBC (Bld) Automated eosinophil % . [facility] Erythrocyte distribution wid th Auto (RBC) [Ratio]Ordered By: Wes Hadley on 06-28-2024 Erythrocyte distribution width (RBC) [Ratio] Erythrocyte distribution width [Ratio] by Automated count 11.9-15.3 [facility] Globulin Calc (S) [Mass/Vol] Ordered By: Wes Hadley on 06-28-2024 Globulin (S) [Mass/Vol] Serum globulin measurement by calculation (mass/volume) [facility] Glucose [Mass/volume] in Ser um or PlasmaOrdered By: Wes Hadley on 06-28-2024 Glucose [Mass/Vol] Glucose [Mass/volume ] in Serum or Plasma 70-100 [facility] Comment on above: ADA recommended refe rence rangeRandom Glucose Reference Range is dependent on time and content of last meal. Glucose of more than 200 mg/dL in a nonstressed, ambulatory subject supports the diagnosis of Diabetes Mellitus. Hematocrit Auto (Bld) [Volum e fraction]Ordered By: Wes Hadley on 06-28-2024 Hematocrit (Bld) [Volume fraction] Hematocrit [Volume Fraction] of Blood by Automated count 34.0-46.4 [facility] Hemoglobin [Mass/volume] in BloodOrdered By: Wes Hadley on 06-28-2024 Hemoglobin (Bld) [Mass/Vol] Hemoglobin [Mass/volume] in Blood 11.8-15.4 [facility] INR in Platelet poor plasma by Coagulation assayOrdered By: Wes Hadley on 06-28-2024 INR Coag (PPP) [Relative time] INR in Platelet poor plasma by Coagulation assay [facility] Comment on above: INR Therapeutic Rang [...] in Blood by Automated coun Low 3.8-11.6 [facility] Lymphocytes Auto (Bld) [#/Vo l]Ordered By: Wes Hadley on 06-28-2024 Lymphocytes (Bld) [#/Vol] Lymphocytes [#/volume] in Blood by Automated count Low 1.00-4.8 [facility] Lymphocytes/100 WBC Auto (Bl d)Ordered By: Wes Hadley on 06-28-2024 Lymphocytes/100 WBC (Bld) Lymphocytes/100 leukocytes in Blood by Automated count . [facility] MCH Auto (RBC) [Entitic mass ]Ordered By: Wes Hadley on 06-28-2024 MCH (RBC) [Entitic mass] MCH [Entitic mass] by Automated count 24.7-34.3 [facility] MCHC Auto (RBC) [Mass/Vol]Or dered By: Wes Hadley on 06-28-2024 MCHC (RBC) [Mass/Vol] MCHC [Mass/volume] by Automated count 32.0-35.0 [facility] MCV Auto (RBC) [Entitic vol] Ordered By: Wes Hadley on 06-28-2024 MCV (RBC) [Entitic vol] MCV [Entitic volume] by Automated count 80-100 [facility] Monocytes Auto (Bld) [#/Vol] Ordered By: Wes Hadley on 06-28-2024 Monocytes (Bld) [#/Vol] Automated blood monocyte count 0.0-0.8 [facility] Monocytes/100 WBC Auto (Bld) Ordered By: Wes Hadley on 06-28-2024 Monocytes/100 WBC (Bld) Automated monocyte % . [facility] Neutrophils Auto (Bld) [#/Vo l]Ordered By: Wes Hadley on 06-28-2024 Neutrophils (Bld) [#/Vol] Neutrophils [#/volume] in Blood by Automated count 1.8-7.7 [facility] Neutrophils/100 WBC Auto (Bl d)Ordered By: Wes Hadley on 06-28-2024 Neutrophils/100 WBC (Bld) Automated neutrophil % . [facility] No Panel InformationOrdered By: Wes Hadley on 06-28-2024 Estimated GFR (CKD-EPI) > 60.0 mL/Min [facility] Creatinine Clearance (Chem N/A [facility] Nucleated erythrocytes [Pres ence] in Blood by Automated countOrdered By: Wes Hadley on 06-28-2024 Nucleated RBC Auto Ql (Bld) Nucleated erythrocytes [Presence] in Blood by Automated count 0-0.5 [facility] Platelet mean volume Auto (B ld) [Entitic vol]Ordered By: Wes Hadley on 06-28-2024 Platelet mean volume (Bld) [Entitic vol] Platelet mean volume [Entitic volume] in Blood by Automated count 6.3-10.7 [facility] Platelets Auto (Bld) [#/Vol] Ordered By: Wes Hadley on 06-28-2024 Platelets (Bld) [#/Vol] Platelets [#/volume] in Blood by Automated count Low 150-450 [facility] Potassium [Moles/volume] in Serum or PlasmaOrdered By: Wes Hadley on 06-28-2024 Potassium [Moles/Vol] Potassium [Moles/v olume] in Serum or Plasma 3.5-5.1 [facility] Protein [Mass/volume] in Ser um or PlasmaOrdered By: Wes Hadley on 06-28-2024 Protein [Mass/Vol] Protein [Mass/volume ] in Serum or Plasma 6.4-8.9 [facility] Prothrombin Time INRon 06-28 INR Coag (PPP) [Relative time] 1.4 {INR} Normal [facility] Comment on above: Result [...] heart valves: 3 - 4.5 PERFORMED BY: [facility] [address] [place] [address] PATHOLOGIST SENIOR ENVIRONMENTAL CONSULTANT RAULITO KWAN M.D. Performed By: #### H BSAG, SMAB, CERULOP, HBSAB, ALPHA PHEN, HBCAB, HCV RX PCR, NIYA CHOICE #### [facility] , #### PT, HEPATIC, CBC, LIPID, FE and TIBC, ALLYSON #### [facility] [address] [place] [address] [place] PT Coag (PPP) [Time] 15.9 s High 9.0-12.9 [facility] Comment on above: Result Comment: A he matocrit value greater than 55% may lead to inaccurate results in coagulation testing. Patients having hematocrit values >55% require a special collection tube for coagulation studies. Please contact the laboratory at [phone] for redraw instructions. Performed By: #### H BSAG, SMAB, CERULOP, HBSAB, ALPHA PHEN, HBCAB, HCV RX PCR, NIYA CHOICE #### [facility] , #### PT, HEPATIC, CBC, LIPID, FE and TIBC, ALLYSON #### [facility] [address] [place] [id number] [facility] Prothrombin time (PT)Ordered By: Wes Hadley on 06-28-2024 PT Coag (PPP) [Time] Prothrombin time (PT) High 9.0- 12.9 [facility] Comment on above: A hematocrit value g reater than 55% may lead to inaccurate results in coagulation testing. Patients having hematocrit values >55% require a special collection tube for coagulation studies. Please contact the laboratory at [phone] for redraw instructions. RBC Auto (Bld) [#/Vol]Ordere d By: Wes Hadley on 06-28-2024 RBC (Bld) [#/Vol] Erythrocytes [#/volu me] in Blood by Automated count 3.60-5.00 [facility] Serum or plasma albumin/glob ulin mass ratioOrdered By: Wes Hadley on 06-28-2024 Albumin/Globulin [Mass ratio] Serum or plasma albumin/globulin mass ratio [facility] Serum or plasma anion gap de terminationOrdered By: Wes Hadley on 06-28-2024 Anion gap [Moles/Vol] Serum or plasma an ion gap determination 6.0-15.0 [facility] Sodium [Moles/volume] in Ser um or PlasmaOrdered By: Wes Hadley on 06-28-2024 Sodium [Moles/Vol] Sodium [Moles/volume ] in Serum or Plasma Low 136-145 [facility] Urea nitrogen [Mass/volume] in Serum or PlasmaOrdered By: Wes Hadley on 06-28-2024 Urea nitrogen [Mass/Vol] Urea nitrogen [Mass/volume] in Serum or Plasma Low 7-25 [facility] WBC Auto (Bld) [#/Vol]Ordere d By: Wes Hadley on 06-28-2024 WBC (Bld) [#/Vol] Leukocytes [#/volume ] in Blood by Automated count Low 3.8-11.6 [facility] Alanine aminotransferase [En zymatic activity/volume] in Serum or PlasmaOrdered By: Wes Hadley on 05-01-2024 ALT [Catalytic activity/Vol] Alanine aminotransferase [Enzymatic activity/volume] in Serum or Plasma 7-52 [facility] Albumin [Mass/volume] in Ser um or Plasma by Bromocresol green (BCG) dye binding methoOrdered By: Wes Hadley on 05-01-2024 Albumin BCG dye [Mass/Vol] Albumin [Mass/volume] in Serum or Plasma by Bromocresol green (BCG) dye binding metho Low 3.5-5.7 [facility] Alkaline phosphatase [Enzyma tic activity/volume] in Serum or PlasmaOrdered By: Wes Hadley on 05-01-2024 ALP [Catalytic activity/Vol] Alkaline phosphatase [Enzymatic activity/volume] in Serum or Plasma 34-104 [facility] Aspartate aminotransferase [ Enzymatic activity/volume] in Serum or PlasmaOrdered By: Wes Hadley on 05-01-2024 AST [Catalytic activity/Vol] Aspartate aminotransferase [Enzymatic activity/volume] in Serum or Plasma 13-39 [facility] Basophils Auto (Bld) [#/Vol] Ordered By: Wes Hadley on 05-01-2024 Basophils (Bld) [#/Vol] Automated basophil count 0.0-0.2 [facility] Basophils/100 WBC Auto (Bld) Ordered By: Wse Hadley on 05-01-2024 Basophils/100 WBC (Bld) Automated basophil % . [facility] Bilirubin.total [Mass/volume ] in Serum or PlasmaOrdered By: Wes Hadley on 05-01-2024 Bilirubin [Mass/Vol] Bilirubin.total [Mass/volume] in Serum or Plasma High 0.3-1.0 [facility] Comment on above: Samples from patient s who have taken Naproxen have shown spurious elevation in Total Bilirubin levels. A metabolite of Naproxen, O-desmethylnaproxen, has been shown to interfere with the Rio-Melo method for measuring Total Bilirubin. Calcium [Mass/volume] in Ser um or PlasmaOrdered By: Wes Hadley on 05-01-2024 Calcium [Mass/Vol] Calcium [Mass/volume ] in Serum or Plasma 8.6-10.3 [facility] Carbon dioxide, total [Moles /volume] in Serum or PlasmaOrdered By: Wes Hadley on 05-01-2024 CO2 [Moles/Vol] Carbon dioxide, tota l [Moles/volume] in Serum or Plasma 21.0-31.0 [facility] Chloride [Moles/volume] in S warner or PlasmaOrdered By: Wes Hadley on 05-01-2024 Chloride [Moles/Vol] Chloride [Moles/vol ume] in Serum or Plasma 98-107 [facility] Complete Blood Count Auto Di ffon 05-01-2024 Basophils (Bld) [#/Vol] 0.0 10*3/uL Normal 0.0-0.2 [facility] Comment on above: Result Comment: PERF ORMED BY: [facility] [address] [place] [address] PATHOLOGIST SENIOR ENVIRONMENTAL CONSULTANT SANGITA BLACK M.D. Performed By: #### H BSAG, SMAB, CERULOP, HBSAB, ALPHA PHEN, HBCAB, HCV RX PCR, NIYA CHOICE #### [facility] , #### PT, HEPATIC, CBC, LIPID, FE and TIBC, ALLYSON #### [facility] [address] Basophils/100 WBC (Bld) 0.9 % Normal . [facility] Comment on above: Performed By: #### H BSAG, SMAB, CERULOP, HBSAB, ALPHA PHEN, HBCAB, HCV RX PCR, NIYA CHOICE #### [facility] , #### PT, HEPATIC, CBC, LIPID, FE and TIBC, ALLYSON #### [address] Eosinophils (Bld) [#/Vol] 0.0 10*3/uL Normal 0.0-0.45 [facility] Comment on above: Performed By: #### H BSAG, SMAB, CERULOP, HBSAB, ALPHA PHEN, HBCAB, HCV RX PCR, NIYA CHOICE #### [facility] , #### PT, HEPATIC, CBC, LIPID, FE and TIBC, ALLYSON #### [address] Eosinophils/100 WBC (Bld) 1.1 % Normal . [facility] Comment on above: Performed By: #### H BSAG, SMAB, CERULOP, HBSAB, ALPHA PHEN, HBCAB, HCV RX PCR, NIYA CHOICE #### [facility] , #### PT, HEPATIC, CBC, LIPID, FE and TIBC, ALLYSON #### [address] Erythrocyte distribution width (RBC) [Ratio] 15.0 % Normal 11.9-15.3 [facility] Comment on above: Performed By: #### H BSAG, SMAB, CERULOP, HBSAB, ALPHA PHEN, HBCAB, HCV RX PCR, NIYA CHOICE #### [facility] , #### PT, HEPATIC, CBC, LIPID, FE and TIBC, ALLYSON #### [address] Hematocrit (Bld) [Volume fraction] 32.9 % Low 34.0-46.4 [facility] Comment on above: Performed By: #### H BSAG, SMAB, CERULOP, HBSAB, ALPHA PHEN, HBCAB, HCV RX PCR, NIYA CHOICE #### [facility] , #### PT, HEPATIC, CBC, LIPID, FE and TIBC, ALLYSON #### [address] Hemoglobin (Bld) [Mass/Vol] 11.3 g/dL Low 11.8-15.4 [facility] Comment on above: Performed By: #### H BSAG, SMAB, CERULOP, HBSAB, ALPHA PHEN, HBCAB, HCV RX PCR, NIYA CHOICE #### [facility] , #### PT, HEPATIC, CBC, LIPID, FE and TIBC, ALLYSON #### [address] Lymphocytes (Bld) [#/Vol] 0.8 10*3/uL Low 1.00-4.8 [facility] Comment on above: Performed By: #### H BSAG, SMAB, CERULOP, HBSAB, ALPHA PHEN, HBCAB, HCV RX PCR, NIYA CHOICE #### [facility] , #### PT, HEPATIC, CBC, LIPID, FE and TIBC, ALLYSON #### [address] Lymphocytes/100 WBC (Bld) 19.8 % Normal . [facility] Comment on above: Performed By: #### H BSAG, SMAB, CERULOP, HBSAB, ALPHA PHEN, HBCAB, HCV RX PCR, NIYA CHOICE #### [facility] , #### PT, HEPATIC, CBC, LIPID, FE and TIBC, ALLYSON #### [address] MCH (RBC) [Entitic mass] 30.9 pg Normal 24.7-34.3 [facility] Comment on above: Performed By: #### H BSAG, SMAB, CERULOP, HBSAB, ALPHA PHEN, HBCAB, HCV RX PCR, NIYA CHOICE #### [facility] , #### PT, HEPATIC, CBC, LIPID, FE and TIBC, ALLYSON #### [address] MCV (RBC) [Entitic vol] 90.3 fL Normal 80-100 [facility] Comment on above: Performed By: #### H BSAG, SMAB, CERULOP, HBSAB, ALPHA PHEN, HBCAB, HCV RX PCR, NIYA CHOICE #### [facility] , #### PT, HEPATIC, CBC, LIPID, FE and TIBC, ALLYSON #### [address] Mean Corpuscular HGB Conc 34.2 g/dL Normal 32.0-35.0 [facility] Comment on above: Performed By: #### H BSAG, SMAB, CERULOP, HBSAB, ALPHA PHEN, HBCAB, HCV RX PCR, NIYA CHOICE #### [facility] , #### PT, HEPATIC, CBC, LIPID, FE and TIBC, ALLYSON #### [address] Monocytes (Bld) [#/Vol] 0.4 10*3/uL Normal 0.0-0.8 [facility] Comment on above: Performed By: #### H BSAG, SMAB, CERULOP, HBSAB, ALPHA PHEN, HBCAB, HCV RX PCR, NIYA CHOICE #### [facility] , #### PT, HEPATIC, CBC, LIPID, FE and TIBC, ALLYSON #### [address] Monocytes/100 WBC (Bld) 11.6 % Normal . [facility] Comment on above: Performed By: #### H BSAG, SMAB, CERULOP, HBSAB, ALPHA PHEN, HBCAB, HCV RX PCR, NIYA CHOICE #### [facility] , #### PT, HEPATIC, CBC, LIPID, FE and TIBC, ALLYSON #### [address] Neutrophils (Bld) [#/Vol] 2.5 10*3/uL Normal 1.8-7.7 [facility] Comment on above: Performed By: #### H BSAG, SMAB, CERULOP, HBSAB, ALPHA PHEN, HBCAB, HCV RX PCR, NIYA CHOICE #### [facility] , #### PT, HEPATIC, CBC, LIPID, FE and TIBC, ALLYSON #### [address] Neutrophils/100 WBC (Bld) 66.6 % Normal . [facility] Comment on above: Performed By: #### H BSAG, SMAB, CERULOP, HBSAB, ALPHA PHEN, HBCAB, HCV RX PCR, NIYA CHOICE #### [facility] , #### PT, HEPATIC, CBC, LIPID, FE and TIBC, ALLYSON #### [address] NRBC% 0.0 /100{WBC} Normal 0-0.5 [facility] Comment on above: Performed By: #### H BSAG, SMAB, CERULOP, HBSAB, ALPHA PHEN, HBCAB, HCV RX PCR, NIYA CHOICE #### [facility] , #### PT, HEPATIC, CBC, LIPID, FE and TIBC, ALLYSON #### [address] Platelet mean volume (Bld) [Entitic vol] 7.4 fL Normal 6.3-10.7 [facility] Comment on above: Performed By: #### H BSAG, SMAB, CERULOP, HBSAB, ALPHA PHEN, HBCAB, HCV RX PCR, NIYA CHOICE #### [facility] , #### PT, HEPATIC, CBC, LIPID, FE and TIBC, ALLYSON #### [address] Platelets (Bld) [#/Vol] 124 10*3/uL Low 150-450 [facility] Comment on above: Performed By: #### H BSAG, SMAB, CERULOP, HBSAB, ALPHA PHEN, HBCAB, HCV RX PCR, NIYA CHOICE #### [facility] , #### PT, HEPATIC, CBC, LIPID, FE and TIBC, ALLYSON #### [facility] [address] RBC (Bld) [#/Vol] 3.64 10*6/uL Normal 3.60-5.00 [facility] Comment on above: Performed By: #### H BSAG, SMAB, CERULOP, HBSAB, ALPHA PHEN, HBCAB, HCV RX PCR, NIYA CHOICE #### [facility] , #### PT, HEPATIC, CBC, LIPID, FE and TIBC, ALLYSON #### [facility] [address] WBC (Bld) [#/Vol] 3.8 10*3/uL Normal 3.8-11.6 [facility] Comment on above: Performed By: #### H BSAG, SMAB, CERULOP, HBSAB, ALPHA PHEN, HBCAB, HCV RX PCR, NIYA CHOICE #### [facility] , #### PT, HEPATIC, CBC, LIPID, FE and TIBC, ALLYSON #### [address] Comprehensive Metabolic Pane [facility] 05-01-2024 Albumin [Mass/Vol] 3.4 g/dL Low 3.5-5.7 [facility] Comment on above: Performed By: #### H BSAG, SMAB, CERULOP, HBSAB, ALPHA PHEN, HBCAB, HCV RX PCR, NIYA CHOICE #### [facility] , #### PT, HEPATIC, CBC, LIPID, FE and TIBC, ALLYSON #### [address] Albumin/Globulin [Mass ratio] 1.1 {ratio} Normal [facility] Comment on above: Performed By: #### H BSAG, SMAB, CERULOP, HBSAB, ALPHA PHEN, HBCAB, HCV RX PCR, NIYA CHOICE #### [facility] , #### PT, HEPATIC, CBC, LIPID, FE and TIBC, ALLYSON #### [address] ALP [Catalytic activity/Vol] 73 U/L Normal 34-104 [facility] Comment on above: Performed By: #### H BSAG, SMAB, CERULOP, HBSAB, ALPHA PHEN, HBCAB, HCV RX PCR, NIYA CHOICE #### [facility] , #### PT, HEPATIC, CBC, LIPID, FE and TIBC, ALLYSON #### [address] ALT [Catalytic activity/Vol] 17 U/L Normal 7-52 [facility] Comment on above: Performed By: #### H BSAG, SMAB, CERULOP, HBSAB, ALPHA PHEN, HBCAB, HCV RX PCR, NIYA CHOICE #### [facility] , #### PT, HEPATIC, CBC, LIPID, FE and TIBC, ALLYSON #### [address] Anion gap [Moles/Vol] 11.7 mmol/L Normal 6.0-15.0 [facility] Comment on above: Performed By: #### H BSAG, SMAB, CERULOP, HBSAB, ALPHA PHEN, HBCAB, HCV RX PCR, NIYA CHOICE #### [facility] , #### PT, HEPATIC, CBC, LIPID, FE and TIBC, ALLYSON #### [address] AST [Catalytic activity/Vol] 36 U/L Normal 13-39 [facility] Comment on above: Performed By: #### H BSAG, SMAB, CERULOP, HBSAB, ALPHA PHEN, HBCAB, HCV RX PCR, NIYA CHOICE #### [facility] , #### PT, HEPATIC, CBC, LIPID, FE and TIBC, ALLYSON #### [address] Bilirubin [Mass/Vol] 1.8 mg/dL High 0.3-1.0 [facility] Comment on above: Result [...] CBC, LIPID, FE and TIBC, ALLYSON #### [address] Calcium [Mass/Vol] 9.5 mg/dL Normal 8.6-10.3 [facility] Comment on above: Performed By: #### H BSAG, SMAB, CERULOP, HBSAB, ALPHA PHEN, HBCAB, HCV RX PCR, NIYA CHOICE #### [facility] , #### PT, HEPATIC, CBC, LIPID, FE and TIBC, ALLYSON #### [address] Chloride [Moles/Vol] 99 mmol/L Normal 98-107 [facility] Comment on above: Performed By: #### H BSAG, SMAB, CERULOP, HBSAB, ALPHA PHEN, HBCAB, HCV RX PCR, NIYA CHOICE #### [facility] , #### PT, HEPATIC, CBC, LIPID, FE and TIBC, ALLYSON #### [address] CO2 [Moles/Vol] 22.9 mmol/L Normal 21.0-31.0 [facility] Comment on above: Performed By: #### H BSAG, SMAB, CERULOP, HBSAB, ALPHA PHEN, HBCAB, HCV RX PCR, NIYA CHOICE #### [facility] , #### PT, HEPATIC, CBC, LIPID, FE and TIBC, ALLYSON #### [address] Creatinine [Mass/Vol] 0.60 mg/dL Normal 0.60-1.20 [facility] Comment on above: Performed By: #### H BSAG, SMAB, CERULOP, HBSAB, ALPHA PHEN, HBCAB, HCV RX PCR, NIYA CHOICE #### [facility] , #### PT, HEPATIC, CBC, LIPID, FE and TIBC, ALLYSON #### [address] Creatinine Clr Calc Pharmacy 86.10 Normal [facility] Comment on above: Result Comment: PERF ORMED BY: [place] [address] PATHOLOGIST SENIOR ENVIRONMENTAL CONSULTANT SANGITA BLACK M.D. Performed By: #### H BSAG, SMAB, CERULOP, HBSAB, ALPHA PHEN, HBCAB, HCV RX PCR, NIYA CHOICE #### [facility] , #### PT, HEPATIC, CBC, LIPID, FE and TIBC, ALLYSON #### [address] GFR/1.73 sq M.predicted MDRD (S/P/Bld) [Vol rate/Area] mL/min/{1.73_m2} Normal [facility] Comment on above: Performed By: #### H BSAG, SMAB, CERULOP, HBSAB, ALPHA PHEN, HBCAB, HCV RX PCR, NIYA CHOICE #### [facility] , #### PT, HEPATIC, CBC, LIPID, FE and TIBC, ALLYSON #### [address] Globulin (S) [Mass/Vol] 3.2 g/dL Normal [facility] Comment on above: Performed By: #### H BSAG, SMAB, CERULOP, HBSAB, ALPHA PHEN, HBCAB, HCV RX PCR, NIYA CHOICE #### [facility] , #### PT, HEPATIC, CBC, LIPID, FE and TIBC, ALLYSON #### [address] Glucose [Mass/Vol] 113 mg/dL High 70-100 [facility] Comment on above: Result Comment: [facility] Glucose Reference Range is dependent on time and content of last meal. Glucose of more than 200 mg/dL in a nonstressed, ambulatory subject supports the diagnosis of Diabetes Mellitus. ADA recommended reference range Performed By: #### H BSAG, SMAB, CERULOP, HBSAB, ALPHA PHEN, HBCAB, HCV RX PCR, NIYA CHOICE #### [facility] , #### PT, HEPATIC, CBC, LIPID, FE and TIBC, ALLYSON #### [address] Potassium [Moles/Vol] 4.6 mmol/L Normal 3.5-5.1 [facility] Comment on above: Performed By: #### H BSAG, SMAB, CERULOP, HBSAB, ALPHA PHEN, HBCAB, HCV RX PCR, NIYA CHOICE #### [facility] , #### PT, HEPATIC, CBC, LIPID, FE and TIBC, ALLYSON #### [address] Protein [Mass/Vol] 6.6 g/dL Normal 6.4-8.9 [facility] Comment on above: Performed By: #### H BSAG, SMAB, CERULOP, HBSAB, ALPHA PHEN, HBCAB, HCV RX PCR, NIYA CHOICE #### [facility] , #### PT, HEPATIC, CBC, LIPID, FE and TIBC, ALLYSON #### [address] Sodium [Moles/Vol] 129 mmol/L Low 136-145 [facility] Comment on above: Performed By: #### H BSAG, SMAB, CERULOP, HBSAB, ALPHA PHEN, HBCAB, HCV RX PCR, NIYA CHOICE #### [facility] , #### PT, HEPATIC, CBC, LIPID, FE and TIBC, [place]YSON #### [place] [address] [place] Urea nitrogen [Mass/Vol] 10 mg/dL Normal 7-25 [facility] Comment on above: Performed By: #### H BSAG, SMAB, CERULOP, HBSAB, ALPHA PHEN, HBCAB, HCV RX PCR, NIYA CHOICE #### [facility] , #### PT, HEPATIC, CBC, LIPID, FE and TIBC, ALLYSON #### [facility] [address] Creatinine [Mass/volume] in Serum or PlasmaOrdered By: Wes Hadley on 05-01-2024 Creatinine [Mass/Vol] Creatinine [Mass/v olume] in Serum or Plasma 0.60-1.20 [facility] Eosinophils Auto (Bld) [#/Vo l]Ordered By: Wes Hadley on 05-01-2024 Eosinophils (Bld) [#/Vol] Automated eosinophil count 0.0-0.45 [facility] Eosinophils/100 WBC Auto (Bl d)Ordered By: Wes Hadley on 05-01-2024 Eosinophils/100 WBC (Bld) Automated eosinophil % . [facility] Erythrocyte distribution wid th Auto (RBC) [Ratio]Ordered By: Wes Hadley on 05-01-2024 Erythrocyte distribution width (RBC) [Ratio] Erythrocyte distribution width [Ratio] by Automated count 11.9-15.3 [facility] Globulin Calc (S) [Mass/Vol] Ordered By: Wes Hadley on 05-01-2024 Globulin (S) [Mass/Vol] Serum globulin measurement by calculation (mass/volume) [facility] Glucose Glucometer (BldC) [M ass/Vol]Ordered By: Wes Hadley on 05-01-2024 Glucose [Mass/Vol] Capillary blood gluc ose measurement by glucometer (mass/volume) [facility] Comment on above: Random Glucose Refer ence Range is dependent on time and content of last meal. Glucose of more than 200 mg/dL in a nonstressed, ambulatory subject supports the diagnosis of Diabetes Mellitus. Glucose Poct Glucometerson 1 07-01-2023 Glucose [Mass/Vol] 117 mg/dL Normal [facility] Comment on above: Result Comment: [place] [facility] Glucose Reference Range is dependent on time and content of last meal. Glucose of more than 200 mg/dL in a nonstressed, ambulatory subject supports the diagnosis of Diabetes Mellitus. PERFORMED BY: [facility] [address] [place] [address] PATHOLOGIST SENIOR ENVIRONMENTAL CONSULTANT SANGITA BLACK M.D. Performed By: #### H BSAG, SMAB, CERULOP, HBSAB, ALPHA PHEN, HBCAB, HCV RX PCR, NIYA CHOICE #### [facility] , #### PT, HEPATIC, CBC, LIPID, FE and TIBC, ALLYSON #### [facility] [address] Glucose [Mass/volume] in Ser um or PlasmaOrdered By: Wes Hadley on 05-01-2024 Glucose [Mass/Vol] Glucose [Mass/volume ] in Serum or Plasma High 70-100 [facility] Comment on above: ADA recommended refe rence rangeRandom Glucose Reference Range is dependent on time and content of last meal. Glucose of more than 200 mg/dL in a nonstressed, ambulatory subject supports the diagnosis of Diabetes Mellitus. Hematocrit Auto (Bld) [Volum e fraction]Ordered By: Wes Hadley on 05-01-2024 Hematocrit (Bld) [Volume fraction] Hematocrit [Volume Fraction] of Blood by Automated count Low 34.0-46.4 [facility] Hemoglobin [Mass/volume] in BloodOrdered By: Wes Hadley on 05-01-2024 Hemoglobin (Bld) [Mass/Vol] Hemoglobin [Mass/volume] in Blood Low 11.8-15.4 [facility] INR in Platelet poor plasma by Coagulation assayOrdered By: Wes Hadley on 05-01-2024 INR Coag (PPP) [Relative time] INR in Platelet poor plasma by Coagulation assay [facility] Comment on above: INR Therapeutic Rang [...] erythrocytes in Blood by Automated coun 3.8-11.6 [facility] Lymphocytes Auto (Bld) [#/Vo l]Ordered By: Wes Hadley on 05-01-2024 Lymphocytes (Bld) [#/Vol] Lymphocytes [#/volume] in Blood by Automated count Low 1.00-4.8 [facility] Lymphocytes/100 WBC Auto (Bl d)Ordered By: Wes Hadley on 05-01-2024 Lymphocytes/100 WBC (Bld) Lymphocytes/100 leukocytes in Blood by Automated count . [facility] MCH Auto (RBC) [Entitic mass ]Ordered By: Wes Hadley on 05-01-2024 MCH (RBC) [Entitic mass] MCH [Entitic mass] by Automated count 24.7-34.3 [facility] MCHC Auto (RBC) [Mass/Vol]Or dered By: Wes Hadley on 05-01-2024 MCHC (RBC) [Mass/Vol] MCHC [Mass/volume] by Automated count 32.0-35.0 [facility] MCV Auto (RBC) [Entitic vol] Ordered By: Wes Hadley on 05-01-2024 MCV (RBC) [Entitic vol] MCV [Entitic volume] by Automated count 80-100 [facility] Monocytes Auto (Bld) [#/Vol] Ordered By: Wes Hadley on 05-01-2024 Monocytes (Bld) [#/Vol] Automated blood monocyte count 0.0-0.8 [facility] Monocytes/100 WBC Auto (Bld) Ordered By: Wes Hadley on 05-01-2024 Monocytes/100 WBC (Bld) Automated monocyte % . [facility] Neutrophils Auto (Bld) [#/Vo l]Ordered By: Wes Hadley on 05-01-2024 Neutrophils (Bld) [#/Vol] Neutrophils [#/volume] in Blood by Automated count 1.8-7.7 [facility] Neutrophils/100 WBC Auto (Bl d)Ordered By: Wes Hadley on 05-01-2024 Neutrophils/100 WBC (Bld) Automated neutrophil % . [facility] No Panel InformationOrdered By: Wes Hadley on 05-01-2024 Estimated GFR (CKD-EPI) > 60.0 mL/Min [facility] Creatinine Clearance (Chem 86.10 [facility] Nucleated erythrocytes [Pres ence] in Blood by Automated countOrdered By: Wes Hadley on 05-01-2024 Nucleated RBC Auto Ql (Bld) Nucleated erythrocytes [Presence] in Blood by Automated count 0-0.5 [facility] Platelet mean volume Auto (B ld) [Entitic vol]Ordered By: Wes Hadley on 05-01-2024 Platelet mean volume (Bld) [Entitic vol] Platelet mean volume [Entitic volume] in Blood by Automated count 6.3-10.7 [facility] Platelets Auto (Bld) [#/Vol] Ordered By: Wes Hadley on 05-01-2024 Platelets (Bld) [#/Vol] Platelets [#/volume] in Blood by Automated count Low 150-450 [facility] Potassium [Moles/volume] in Serum or PlasmaOrdered By: Wes Hadley on 05-01-2024 Potassium [Moles/Vol] Potassium [Moles/v olume] in Serum or Plasma 3.5-5.1 [facility] Protein [Mass/volume] in Ser um or PlasmaOrdered By: Wes Hadley on 05-01-2024 Protein [Mass/Vol] Protein [Mass/volume ] in Serum or Plasma 6.4-8.9 [facility] Prothrombin Time INRon 05-01 INR Coag (PPP) [Relative time] 1.5 {INR} Normal [facility] Comment on above: Result [...] heart valves: 3 - 4.5 PERFORMED BY: [place] [address] PATHOLOGIST SENIOR ENVIRONMENTAL CONSULTANT SANGITA BLACK M.D. Performed By: #### H BSAG, SMAB, CERULOP, HBSAB, ALPHA PHEN, HBCAB, HCV RX PCR, NIYA CHOICE #### [facility] , #### PT, HEPATIC, CBC, LIPID, FE and TIBC, ALLYSON #### [facility] [address] [place] [address] PT Coag (PPP) [Time] 16.8 s High 9.0-12.9 [facility] Comment on above: Result Comment: A he matocrit value greater than 55% may lead to inaccurate results in coagulation testing. Patients having hematocrit values >55% require a special collection tube for coagulation studies. Please contact the laboratory at [phone] for redraw instructions. Performed By: #### H BSAG, SMAB, CERULOP, HBSAB, ALPHA PHEN, HBCAB, HCV RX PCR, NIYA CHOICE #### [facility] , #### PT, HEPATIC, CBC, LIPID, FE and TIBC, ALLYSON #### [facility] [address] [place] [address] Prothrombin time (PT)Ordered By: Wes Hadley on 05-01-2024 PT Coag (PPP) [Time] Prothrombin time (PT) High 9.0- 12.9 [facility] Comment on above: A hematocrit value g reater than 55% may lead to inaccurate results in coagulation testing. Patients having hematocrit values >55% require a special collection tube for coagulation studies. Please contact the laboratory at [phone] for redraw instructions. RBC Auto (Bld) [#/Vol]Ordere d By: Wes Hadley on 05-01-2024 RBC (Bld) [#/Vol] Erythrocytes [#/volu me] in Blood by Automated count 3.60-5.00 [facility] Serum or plasma albumin/glob ulin mass ratioOrdered By: Wes Hadley on 05-01-2024 Albumin/Globulin [Mass ratio] Serum or plasma albumin/globulin mass ratio [facility] Serum or plasma anion gap de terminationOrdered By: Wes Hadley on 05-01-2024 Anion gap [Moles/Vol] Serum or plasma an ion gap determination 6.0-15.0 [facility] Sodium [Moles/volume] in Ser um or PlasmaOrdered By: Wes Hadley on 05-01-2024 Sodium [Moles/Vol] Sodium [Moles/volume ] in Serum or Plasma Low 136-145 [facility] Urea nitrogen [Mass/volume] in Serum or PlasmaOrdered By: Wes Hadley on 05-01-2024 Urea nitrogen [Mass/Vol] Urea nitrogen [Mass/volume] in Serum or Plasma 7-25 [facility] WBC Auto (Bld) [#/Vol]Ordere d By: Wes Hadley on 05-01-2024 WBC (Bld) [#/Vol] Leukocytes [#/volume ] in Blood by Automated count 3.8-11.6 [facility] US liveron 04-02-2024 liver [facility] [place] [address] Ultrasound Report Signed Patient: Bernadine Bhakta MR#: [id number] : 1965 Acct:[id number] Age/Sex: 58 / F ADM Date: 04/02/24 Loc: Room: Type: [facility] Attending Dr: Wes Hadley MD Ordering Provider: Wes Hadley MD Date of Service: 04/02/24 US/ liver: K70.30 - Alcoholic cirrhosis of liver [...] ASCITES.. Impression dictated by: Shahzad Ortiz Jr., D.ODonn04/02/2024 4:08 PM Dictation Location: [employer] Tech: Sydnie Ornelas Transcribed By: JOSE ELIAS 04/02/24 1608 Dictated By: Shahzad Ortiz Jr, DO 04/02/24 1603 Signed By: 04/02/24 1608 Normal [facility] US paracentesis abd w/imageo n 03-01-2024 US paracentesis abd w/image [facility] [place] [address] Ultrasound Report Signed Patient: Bernadine Bhakta MR#: [id number] : 1965 Acct:[id number] Age/Sex: 58 / F ADM Date: 03/01/24 Loc: Room: Type: [facility] Attending Dr: Serene Zelaya NP-C Ordering Provider: Serene Zelaya PA-C Date of [...] and local anesthesia with lidocaine, a 5 Bengali Yueh sheath catheter was advanced into the peritoneal cavity with return of clear yellow fluid. Approximately 5700 mL of ascites was drained. The catheter was removed. There were no immediate complications. Patient was sent to the infusion center for albumin replacement therapy. US/US paracentesis abd w/image IMPRESSION: STATUS POST ULTRASOUND-GUIDED THERAPEUTIC PARACENTESIS. Impression dictated by: Serene Greenberg M.D.03/01/2024 3:26 PM Dictation Location: [employer] Tech: Kathy Meade Transcribed By: JOSE ELIAS 03/01/24 1526 Dictated By: Serene Greenberg MD 03/01/24 1525 Signed By: 03/01/24 152 Normal [facility] NIYA with Reflexon 02-28-2024 NIYA with Reflex Negative Normal Negative [facility] Comment on above: Result Comment: Perf ormed at: [id number] [place], [place] [id number] Brand Executive: Gonzales Poe PhD, Phone: [phone] Performed By: #### H BSAG, SMAB, CERULOP, HBSAB, ALPHA PHEN, HBCAB, HCV RX PCR, NIYA CHOICE #### [facility] , #### PT, HEPATIC, CBC, LIPID, FE and TIBC, ALLYSON #### [address] Actin smooth muscle IgG Ab [ Units/volume] in SerumOrdered By: Wes Hadley on 02-28-2024 Actin smooth muscle IgG Qn (S) 18 Units 0-19 [facility] Comment on above: Negative 0 - 19 Weak positive 20 - 30 Moderate to strong positive >30 Actin Antibodies are found in 52-85% of patients with autoimmune hepatitis or chronic active hepatitis and in 22% of patients with primary biliary cirrhosis.Performed at: [facility] [id number] Director: Gonzales Poe PhD, Phone: [phone] Actin smooth muscle IgG Qn (S) Actin smooth muscle IgG Ab [Units/volume] in Serum 0-19 [facility] Comment on above: Negative 0 - 19 Weak positive 20 - 30 Moderate to strong positive >30 Actin Antibodies are found in 52-85% of patients with autoimmune hepatitis or chronic active hepatitis and in 22% of patients with primary biliary cirrhosis.Performed at: [facility] [id number] Director: Gonzales Poe PhD, Phone: [phone] Alanine aminotransferase [En zymatic activity/volume] in Serum or PlasmaOrdered By: Wes Hadley on 02-28-2024 ALT [Catalytic activity/Vol] 10 U/L Normal [facility] Comment on above: Performed By: #### H BSAG, SMAB, CERULOP, HBSAB, ALPHA PHEN, HBCAB, HCV RX PCR, NIYA CHOICE #### [facility] , #### PT, HEPATIC, CBC, LIPID, FE and TIBC, ALLYSON #### [facility] [address] ALT [Catalytic activity/Vol] Alanine aminotransferase [Enzymatic activity/volume] in Serum or Plasma [facility] Albumin [Mass/volume] in Ser um or Plasma by Bromocresol green (BCG) dye binding methoOrdered By: Wes Hadley on 02-28-2024 Albumin BCG dye [Mass/Vol] 3.1 g/dL Low 3.5-5.7 [facility] Albumin BCG dye [Mass/Vol] Albumin [Mass/volume] in Serum or Plasma by Bromocresol green (BCG) dye binding metho Low 3.5-5.7 [facility] Alkaline phosphatase [Enzyma tic activity/volume] in Serum or PlasmaOrdered By: Wes Hadley on 02-28-2024 ALP [Catalytic activity/Vol] 72 U/L Normal [facility] Comment on above: Performed By: #### H BSAG, SMAB, CERULOP, HBSAB, ALPHA PHEN, HBCAB, HCV RX PCR, NIYA CHOICE #### [facility] , #### PT, HEPATIC, CBC, LIPID, FE and TIBC, ALLYSON #### [facility] [address] ALP [Catalytic activity/Vol] Alkaline phosphatase [Enzymatic activity/volume] in Serum or Plasma [facility] [id number] Phenotyp kimberley 02-28-2024 Alpha 1 Anti-Trypsin 233 mg/dL High 101-187 [facility] Comment on above: Performed By: #### H BSAG, SMAB, CERULOP, HBSAB, ALPHA PHEN, HBCAB, HCV RX PCR, NIYA CHOICE #### [facility] , #### PT, HEPATIC, CBC, LIPID, FE and TIBC, ALLYSON #### [facility] [address] Phenotype (P1) MM Normal . [facility] Comment on above: Result Comment: MM Phenotype is considered to be normal , producing normal serum levels of ydjwo-5-vbmocnsh inhibitor and not associated with clinical disease. [...] Ranges used to confirm phenotype. Performed at: [facility] [address] [id number] Brand Executive: Gonzales Poe PhD, Phone: [phone] Performed at: [facility] [address] [id number] Brand Executive: Ankita Ruelas MD, Phone: [phone] Performed By: #### H BSAG, SMAB, CERULOP, HBSAB, ALPHA PHEN, HBCAB, HCV RX PCR, NIYA CHOICE #### [facility] , #### PT, HEPATIC, CBC, LIPID, FE and TIBC, ALLYSON #### [facility] [address] [id number] [facility] Aspartate aminotransferase [ Enzymatic activity/volume] in Serum or PlasmaOrdered By: Wes Hadley on 02-28-2024 AST [Catalytic activity/Vol] 35 U/L Normal 13-39 [facility] Comment on above: Performed By: #### H BSAG, SMAB, CERULOP, HBSAB, ALPHA PHEN, HBCAB, HCV RX PCR, NIYA CHOICE #### [facility] , #### PT, HEPATIC, CBC, LIPID, FE and TIBC, ALLYSON #### [address] AST [Catalytic activity/Vol] Aspartate aminotransferase [Enzymatic activity/volume] in Serum or Plasma 13-39 [facility] Automated basophil %Ordered By: Wes Hadley on 02-28-2024 Basophils/100 WBC (Bld) 0.8 % Normal . [facility] Comment on above: Performed By: #### H BSAG, SMAB, CERULOP, HBSAB, ALPHA PHEN, HBCAB, HCV RX PCR, NIYA CHOICE #### [facility] , #### PT, HEPATIC, CBC, LIPID, FE and TIBC, ALLYSON #### [address] Automated basophil countOrde red By: Wes Hadley on 02-28-2024 Basophils (Bld) [#/Vol] 0.0 10*3/uL Normal 0.0-0.2 [facility] Comment on above: Result Comment: PERF ORMED BY: [place] [address] PATHOLOGIST SENIOR ENVIRONMENTAL CONSULTANT SANGITA BLACK M.D. Performed By: #### H BSAG, SMAB, CERULOP, HBSAB, ALPHA PHEN, HBCAB, HCV RX PCR, NIYA CHOICE #### [facility] , #### PT, HEPATIC, CBC, LIPID, FE and TIBC, ALLYSON #### [address] Automated blood monocyte cou ntOrdered By: Wes Hadley on 02-28-2024 Monocytes (Bld) [#/Vol] 0.7 10*3/uL Normal 0.0-0.8 [facility] Comment on above: Performed By: #### H BSAG, SMAB, CERULOP, HBSAB, ALPHA PHEN, HBCAB, HCV RX PCR, NIYA CHOICE #### [facility] , #### PT, HEPATIC, CBC, LIPID, FE and TIBC, ALLYSON #### [address] Automated eosinophil %Ordere d By: Wes Hadley on 02-28-2024 Eosinophils/100 WBC (Bld) 1.1 % Normal . [facility] Comment on above: Performed By: #### H BSAG, SMAB, CERULOP, HBSAB, ALPHA PHEN, HBCAB, HCV RX PCR, NIYA CHOICE #### [facility] , #### PT, HEPATIC, CBC, LIPID, FE and TIBC, ALLYSON #### [address] Automated eosinophil countOr dered By: Wes Hadley on 02-28-2024 Eosinophils (Bld) [#/Vol] 0.1 10*3/uL Normal 0.0-0.45 [facility] Comment on above: Performed By: #### H BSAG, SMAB, CERULOP, HBSAB, ALPHA PHEN, HBCAB, HCV RX PCR, NIYA CHOICE #### [facility] , #### PT, HEPATIC, CBC, LIPID, FE and TIBC, ALLYSON #### [address] Automated monocyte %Ordered By: Wes Hadley on 02-28-2024 Monocytes/100 WBC (Bld) 11.8 % Normal . [facility] Comment on above: Performed By: #### H BSAG, SMAB, CERULOP, HBSAB, ALPHA PHEN, HBCAB, HCV RX PCR, NIYA CHOICE #### [facility] , #### PT, HEPATIC, CBC, LIPID, FE and TIBC, ALLYSON #### [address] Automated neutrophil %Ordere d By: Wes Hadley on 02-28-2024 Neutrophils/100 WBC (Bld) 66.9 % Normal . [facility] Comment on above: Performed By: #### H BSAG, SMAB, CERULOP, HBSAB, ALPHA PHEN, HBCAB, HCV RX PCR, NIYA CHOICE #### [facility] , #### PT, HEPATIC, CBC, LIPID, FE and TIBC, ALLYSON #### [facility] [address] Basophils Auto (Bld) [#/Vol] Ordered By: Wes Hadley on 02-28-2024 Basophils (Bld) [#/Vol] Automated basophil count 0.0-0.2 [facility] Basophils/100 WBC Auto (Bld) Ordered By: Wes Hadley on 02-28-2024 Basophils/100 WBC (Bld) Automated basophil % . [facility] Bilirubin.direct [Mass/volum e] in Serum or PlasmaOrdered By: Wes Hadley on 02-28-2024 Bilirubin.direct [Mass/Vol] 1.40 mg/dL High 0.03-0.18 [facility] Bilirubin.direct [Mass/Vol] Bilirubin.direct [Mass/volume] in Serum or Plasma High 0.03-0.18 [facility] Bilirubin.total [Mass/volume ] in Serum or PlasmaOrdered By: Wes Hadley on 02-28-2024 Bilirubin [Mass/Vol] 3.6 mg/dL High 0.3-1.0 [facility] Comment on above: Samples from patient [...] CBC, LIPID, FE and TIBC, ALLYSON #### [address] Bilirubin [Mass/Vol] Bilirubin.total [Mass/volume] in Serum or Plasma High 0.3-1.0 [facility] Comment on above: Samples from patient s who have taken Naproxen have shown spurious elevation in Total Bilirubin levels. A metabolite of Naproxen, O-desmethylnaproxen, has been shown to interfere with the Jenkatyik-Melo method for measuring Total Bilirubin. Ceruloplasminon 02-28-2024 Ceruloplasmin 22.9 mg/dL Normal 19.0-39.0 [facility] Comment on above: Result Comment: Perf ormed at: CB - [facility] [address] [id number] Brand Executive: Gonzales Poe PhD, Phone: [phone] PERFORMED BY: [place] [address] PATHOLOGIST SENIOR ENVIRONMENTAL CONSULTANT SANGITA BLACK M.D. Performed By: #### H BSAG, SMAB, CERULOP, HBSAB, ALPHA PHEN, HBCAB, HCV RX PCR, NIYA CHOICE #### [facility] , #### PT, HEPATIC, CBC, LIPID, FE and TIBC, ALLYSON #### [address] Cholesterol [Mass/volume] in Serum or PlasmaOrdered By: Wes Hadley on 02-28-2024 Cholesterol [Mass/Vol] 194 mg/dL Normal 140-200 [facility] Comment on above: Chol less than 200 [...] CBC, LIPID, FE and TIBC, ALLYSON #### [address] [place] [address] [facility] Cholesterol [Mass/Vol] Cholesterol [Mass/volume] in Serum or Plasma 140-200 [facility] Comment on above: Chol less than 200 m g/dl low riskChol 201-239 mg/dl borderline riskChol 240 mg/dl and greater high risk Cholesterol in HDL [Mass/vol ume] in Serum or PlasmaOrdered By: Wes Hadley on 02-28-2024 Cholesterol in HDL [Mass/Vol] Serum or plasma high density lipoprotein (HDL) cholesterol measurement 23- [facility] Comment on above: HDL CHOL ATP-III CLA SSIFICATION Cardiovascular RiskHDL > or equal to 60 mg/dL LOWHDL < 40 mg/dL HIGH Cholesterol in LDL Calc [Mas s/Vol]Ordered By: Wes Hadley on 02-28-2024 Cholesterol in LDL [Mass/Vol] 145 mg/dL High 0-100 [facility] Comment on above: LDL ATP III CLASSIFI CATIONLDL less than 100 mg/dL OptimalLDL 100-129 mg/dL Near or above optimalLDL 130-159 mg/dL Borderline highLDL 160-189 mg/dL HighLDL greater than 189 mg/dL Very high Cholesterol in LDL [Mass/Vol] Cholesterol in LDL [Mass/volume] in Serum or Plasma by calculation High 0-100 [facility] Comment on above: LDL ATP III CLASSIFI CATIONLDL less than 100 mg/dL OptimalLDL 100-129 mg/dL Near or above optimalLDL 130-159 mg/dL Borderline highLDL 160-189 mg/dL HighLDL greater than 189 mg/dL Very high Cholesterol in VLDL Calc [Ma ss/Vol]Ordered By: Wes Hadley on 02-28-2024 Cholesterol in VLDL [Mass/Vol] 24 mg/dL [facility] Cholesterol in VLDL [Mass/Vol] Cholesterol in VLDL [Mass/volume] in Serum or Plasma by calculation [facility] Complete Blood Count Auto Di ffon 02-28-2024 Mean Corpuscular HGB Conc 34.4 g/dL Normal 32.0-35.0 [facility] Comment on above: Performed By: #### H BSAG, SMAB, CERULOP, HBSAB, ALPHA PHEN, HBCAB, HCV RX PCR, NIYA CHOICE #### [facility] , #### PT, HEPATIC, CBC, LIPID, FE and TIBC, ALLYSON #### [facility] [address] NRBC% 0.1 /100{WBC} Normal 0-0.5 [facility] Comment on above: Performed By: #### H BSAG, SMAB, CERULOP, HBSAB, ALPHA PHEN, HBCAB, HCV RX PCR, NIYA CHOICE #### [facility] , #### PT, HEPATIC, CBC, LIPID, FE and TIBC, ALLYSON #### [facility] [address] Eosinophils Auto (Bld) [#/Vo l]Ordered By: Wes Hadley on 02-28-2024 Eosinophils (Bld) [#/Vol] Automated eosinophil count 0.0-0.45 [facility] Eosinophils/100 WBC Auto (Bl d)Ordered By: Wes Hadley on 02-28-2024 Eosinophils/100 WBC (Bld) Automated eosinophil % . [facility] Erythrocyte distribution wid th Auto (RBC) [Ratio]Ordered By: Wes Hadley on 02-28-2024 Erythrocyte distribution width (RBC) [Ratio] Erythrocyte distribution width [Ratio] by Automated count 11.9-15.3 [facility] Erythrocyte distribution wid th [Ratio] by Automated countOrdered By: Wes Hadley on 02-28-2024 Erythrocyte distribution width (RBC) [Ratio] 14.4 % Normal 11.9-15.3 [facility] Comment on above: Performed By: #### H BSAG, SMAB, CERULOP, HBSAB, ALPHA PHEN, HBCAB, HCV RX PCR, NIYA CHOICE #### [facility] , #### PT, HEPATIC, CBC, LIPID, FE and TIBC, ALLYSON #### [facility] [address] [place] [address] Erythrocytes [#/volume] in B lood by Automated countOrdered By: Wes Haldey on 02-28-2024 RBC (Bld) [#/Vol] 3.52 10*6/uL Low 3.60-5.00 [facility] Comment on above: Performed By: #### H BSAG, SMAB, CERULOP, HBSAB, ALPHA PHEN, HBCAB, HCV RX PCR, NIYA CHOICE #### [facility] , #### PT, HEPATIC, CBC, LIPID, FE and TIBC, ALLYSON #### [facility] [address] Ferritin [Mass/volume] in Se rum or PlasmaOrdered By: Wes Hadley on 02-28-2024 Ferritin [Mass/Vol] 46.0 ng/mL Normal 11.0-306.8 [facility] Comment on above: Performed By: #### H BSAG, SMAB, CERULOP, HBSAB, ALPHA PHEN, HBCAB, HCV RX PCR, NIYA CHOICE #### [facility] , #### PT, HEPATIC, CBC, LIPID, FE and TIBC, ALLYSON #### [facility] [address] Ferritin [Mass/Vol] Ferritin [Mass/volum e] in Serum or Plasma 11.0-306.8 [facility] Globulin Calc (S) [Mass/Vol] Ordered By: Wes Hadley on 02-28-2024 Globulin (S) [Mass/Vol] Serum globulin measurement by calculation (mass/volume) [facility] Hematocrit Auto (Bld) [Volum e fraction]Ordered By: Wes Hadley on 02-28-2024 Hematocrit (Bld) [Volume fraction] Hematocrit [Volume Fraction] of Blood by Automated count Low 34.0-46.4 [facility] Hematocrit [Volume Fraction] of Blood by Automated countOrdered By: Wes Hadley on 02-28-2024 Hematocrit (Bld) [Volume fraction] 33.8 % Low 34.0-46.4 [facility] Comment on above: Performed By: #### H BSAG, SMAB, CERULOP, HBSAB, ALPHA PHEN, HBCAB, HCV RX PCR, NIYA CHOICE #### [facility] , #### PT, HEPATIC, CBC, LIPID, FE and TIBC, ALLYSON #### [facility] [address] Hemoglobin [Mass/volume] in BloodOrdered By: Wes Hadley on 02-28-2024 Hemoglobin (Bld) [Mass/Vol] 11.6 g/dL Low 11.8-15.4 [facility] Comment on above: Performed By: #### H BSAG, SMAB, CERULOP, HBSAB, ALPHA PHEN, HBCAB, HCV RX PCR, NIYA CHOICE #### [facility] , #### PT, HEPATIC, CBC, LIPID, FE and TIBC, ALLYSON #### [facility] [address] [place] [address] Hemoglobin (Bld) [Mass/Vol] Hemoglobin [Mass/volume] in Blood Low 11.8-15.4 [facility] Hep C Ab wRfx to Qnt PCRon 0 02-28-2024 Hepatitis C Virus Antibody Non-Reactive Normal Non Reactive [facility] Comment on above: Performed By: #### H BSAG, SMAB, CERULOP, HBSAB, ALPHA PHEN, HBCAB, HCV RX PCR, NIYA CHOICE #### [facility] , #### PT, HEPATIC, CBC, LIPID, FE and TIBC, ALLYSON #### [address] Interpretation Hepatitis C Comment Normal . [facility] Comment on above: Result [...] CBC, LIPID, FE and TIBC, ALLYSON #### [address] Hepatic Panelon 02-28-2024 Albumin [Mass/Vol] 3.1 g/dL Low 3.5-5.7 [facility] Comment on above: Performed By: #### H BSAG, SMAB, CERULOP, HBSAB, ALPHA PHEN, HBCAB, HCV RX PCR, NIYA CHOICE #### [facility] , #### PT, HEPATIC, CBC, LIPID, FE and TIBC, ALLYSON #### [address] Bilirubin,Indirect 2.2 mg/dL Normal [facility] Comment on above: Performed By: #### H BSAG, SMAB, CERULOP, HBSAB, ALPHA PHEN, HBCAB, HCV RX PCR, NIYA CHOICE #### [facility] , #### PT, HEPATIC, CBC, LIPID, FE and TIBC, ALLYSON #### [address] Bilirubin.indirect [Mass/Vol] 1.40 mg/dL High 0.03-0.18 [facility] Comment on above: Performed By: #### H BSAG, SMAB, CERULOP, HBSAB, ALPHA PHEN, HBCAB, HCV RX PCR, NIYA CHOICE #### [facility] , #### PT, HEPATIC, CBC, LIPID, FE and TIBC, ALLYSON #### [address] Hepatitis B Core Antibodyon 02-28-2024 Hepatitis B Core Antibody Negative Normal Negative [facility] Comment on above: Result Comment: Perf ormed at: - [facility] [id number] Brand Executive: Gonzales Poe PhD, Phone: [phone] Performed By: #### H BSAG, SMAB, CERULOP, HBSAB, ALPHA PHEN, HBCAB, HCV RX PCR, NIYA CHOICE #### [facility] , #### PT, HEPATIC, CBC, LIPID, FE and TIBC, ALLYSON #### [address] Hepatitis B Surface Antibody on 02-28-2024 Hepatitis B Surface Antibody Non-Reactive Normal . [facility] Comment on above: Result [...] CBC, LIPID, FE and TIBC, ALLYSON #### [facility] [address] Hepatitis B Surface Antigeno n 02-28-2024 HBsAg Screen Negative Normal Negative [facility] Comment on above: Result Comment: PERF ORMED BY: [place] [address] PATHOLOGIST SENIOR ENVIRONMENTAL CONSULTANT SANGITA BLACK M.D. Performed By: #### H BSAG, SMAB, CERULOP, HBSAB, ALPHA PHEN, HBCAB, HCV RX PCR, NIYA CHOICE #### [facility] , #### PT, HEPATIC, CBC, LIPID, FE and TIBC, ALLYSON #### [facility] [address] [place] [address] Hepatitis B virus core antib [place] assayOrdered By: Wes Hadley on 02-28-2024 Hepatitis B Core Total Antibody Negative Negative [facility] Comment on above: Performed at: [facility] [employer] [id number] Director: Gonzales Poe PhD, Phone: [phone] Hepatitis B virus surface Ab [Presence] in SerumOrdered By: Wes Hadley on 02-28-2024 HBV surface Ab Ql (S) Non-Reactive . [facility] Comment on above: Non Reactive: Not [...] HBV surface Ag IA Ql Negative Negative [facility] Hepatitis C virus IgG Ab [Pr esence] in Serum or Plasma by ImmunoassayOrdered By: Wes Hadley on 02-28-2024 HCV IgG IA Ql Non-Reactive Non Reactive [facility] HCV IgG IA Ql Hepatitis C virus Ig G Ab [Presence] in Serum or Plasma by Immunoassay Non Reactive [facility] INR in Platelet poor plasma by Coagulation assayOrdered By: Wes Hadley on 02-28-2024 INR Coag (PPP) [Relative time] 1.6 {INR} Normal [facility] Comment on above: INR Therapeutic Rang [...] heart valves: 3 - 4.5 PERFORMED BY: [place] [address] PATHOLOGIST SENIOR ENVIRONMENTAL CONSULTANT SANGITA BLACK M.D. Performed By: #### H BSAG, SMAB, CERULOP, HBSAB, ALPHA PHEN, HBCAB, HCV RX PCR, NIYA CHOICE #### [facility] , #### PT, HEPATIC, CBC, LIPID, FE and TIBC, ALLYSON #### [facility] [address] [place] [address] INR Coag (PPP) [Relative time] INR in Platelet poor plasma by Coagulation assay [facility] Comment on above: INR Therapeutic Rang [...] 02-28-2024 Iron [Mass/Vol] 56 ug/dL Normal 50-212 [facility] Comment on above: Performed By: #### H BSAG, SMAB, CERULOP, HBSAB, ALPHA PHEN, HBCAB, HCV RX PCR, NIYA CHOICE #### [facility] , #### PT, HEPATIC, CBC, LIPID, FE and TIBC, ALLYSON #### [facility] [address] Iron [Mass/Vol] Iron [Mass/volume] i n Serum or Plasma 50-212 [facility] Iron and TIBC Profileon 02-18 0 % Iron Saturation 21.1 % Normal 20-50 [facility] Comment on above: Performed By: #### H BSAG, SMAB, CERULOP, HBSAB, ALPHA PHEN, HBCAB, HCV RX PCR, NIYA CHOICE #### [facility] , #### PT, HEPATIC, CBC, LIPID, FE and TIBC, ALLYSON #### [facility] [address] [place] [address] [place] Total Iron Binding Capacity 266 ug/dL Normal 255-450 [facility] Comment on above: Performed By: #### H BSAG, SMAB, CERULOP, HBSAB, ALPHA PHEN, HBCAB, HCV RX PCR, NIYA CHOICE #### [facility] , #### PT, HEPATIC, CBC, LIPID, FE and TIBC, ALLYSON #### [facility] [address] [place] [address] [place] Iron binding capacity [Mass/ volume] in Serum or PlasmaOrdered By: Wes Hadley on 02-28-2024 Iron binding capacity [Mass/Vol] 266 ug/dL 255-450 [facility] Iron saturation [Mass Fracti on] in Serum or PlasmaOrdered By: Wes Hadley on 02-28-2024 Iron saturation [Mass fraction] 21.1 % 20-50 [facility] Leukocytes [#/volume] correc anthony for nucleated erythrocytes in Blood by Automated counOrdered By: Wes Hadley on 02-28-2024 WBC corrected for nucl RBC Auto (Bld) [#/Vol] 5.8 10*3/uL 3.8-11.6 [facility] WBC corrected for nucl RBC Auto (Bld) [#/Vol] Leukocytes [#/volume] corrected for nucleated erythrocytes in Blood by Automated coun 3.8-11.6 [facility] Leukocytes [#/volume] in Blo od by Automated countOrdered By: Wes Hadley on 02-28-2024 WBC (Bld) [#/Vol] 5.8 10*3/uL Normal 3.8-11.6 [facility] Comment on above: Performed By: #### H BSAG, SMAB, CERULOP, HBSAB, ALPHA PHEN, HBCAB, HCV RX PCR, NIYA CHOICE #### [facility] , #### PT, HEPATIC, CBC, LIPID, FE and TIBC, ALLYSON #### [facility] [address] Lipid Panelon 02-28-2024 LDL Cholesterol,Calculated 145 mg/dL High 0-100 [facility] Comment on above: Result [...] CBC, LIPID, FE and TIBC, ALLYSON #### [facility] [address] Triglyceride w/Reflex 123 mg/dL Normal 0-149 [facility] Comment on above: Result [...] CBC, LIPID, FE and TIBC, ALLYSON #### [facility] [address] VLDL CHOLESTEROL 24 mg/dL Normal [facility] Comment on above: Performed By: #### H BSAG, SMAB, CERULOP, HBSAB, ALPHA PHEN, HBCAB, HCV RX PCR, NIYA CHOICE #### [facility] , #### PT, HEPATIC, CBC, LIPID, FE and TIBC, ALLYSON #### [facility] [address] Lymphocytes Auto (Bld) [#/Vo l]Ordered By: Wes Hadley on 02-28-2024 Lymphocytes (Bld) [#/Vol] Lymphocytes [#/volume] in Blood by Automated count 1.00-4.8 [facility] Lymphocytes [#/volume] in Bl ood by Automated countOrdered By: Wes Hadley on 02-28-2024 Lymphocytes (Bld) [#/Vol] 1.1 10*3/uL Normal 1.00-4.8 [facility] Comment on above: Performed By: #### H BSAG, SMAB, CERULOP, HBSAB, ALPHA PHEN, HBCAB, HCV RX PCR, NIYA CHOICE #### [facility] , #### PT, HEPATIC, CBC, LIPID, FE and TIBC, ALLYSON #### [facility] [address] [place] [address] [place] Lymphocytes/100 WBC Auto (Bl d)Ordered By: Wes Hadley on 02-28-2024 Lymphocytes/100 WBC (Bld) Lymphocytes/100 leukocytes in Blood by Automated count . [facility] Lymphocytes/100 leukocytes i n Blood by Automated countOrdered By: Wes Hadley on 02-28-2024 Lymphocytes/100 WBC (Bld) 19.4 % Normal . [facility] Comment on above: Performed By: #### H BSAG, SMAB, CERULOP, HBSAB, ALPHA PHEN, HBCAB, HCV RX PCR, NIYA CHOICE #### [facility] , #### PT, HEPATIC, CBC, LIPID, FE and TIBC, ALLYSON #### [facility] [address] MCH Auto (RBC) [Entitic mass ]Ordered By: Wes Hadley on 02-28-2024 MCH (RBC) [Entitic mass] MCH [Entitic mass] by Automated count 24.7-34.3 [facility] MCH [Entitic mass] by Automa anthony countOrdered By: Wes Hadley on 02-28-2024 MCH (RBC) [Entitic mass] 33.1 pg Normal 24.7-34.3 [facility] Comment on above: Performed By: #### H BSAG, SMAB, CERULOP, HBSAB, ALPHA PHEN, HBCAB, HCV RX PCR, NIYA CHOICE #### [facility] , #### PT, HEPATIC, CBC, LIPID, FE and TIBC, ALLYSON #### [facility] [address] MCHC Auto (RBC) [Mass/Vol]Or dered By: Wes Hadley on 02-28-2024 MCHC (RBC) [Mass/Vol] 34.4 g/dL 32.0-35.0 [facility] MCHC (RBC) [Mass/Vol] MCHC [Mass/volume] by Automated count 32.0-35.0 [facility] MCV Auto (RBC) [Entitic vol] Ordered By: Wes Hadley on 02-28-2024 MCV (RBC) [Entitic vol] MCV [Entitic volume] by Automated count 80-100 [facility] MCV [Entitic volume] by Auto mated countOrdered By: Wes Hadley on 02-28-2024 MCV (RBC) [Entitic vol] 96.0 fL Normal 80-100 [facility] Comment on above: Performed By: #### H BSAG, SMAB, CERULOP, HBSAB, ALPHA PHEN, HBCAB, HCV RX PCR, NIYA CHOICE #### [facility] , #### PT, HEPATIC, CBC, LIPID, FE and TIBC, ALLYSON #### [facility] [address] [place] [address] [place] Monocytes Auto (Bld) [#/Vol] Ordered By: Wes Hadley on 02-28-2024 Monocytes (Bld) [#/Vol] Automated blood monocyte count 0.0-0.8 [facility] Monocytes/100 WBC Auto (Bld) Ordered By: Wes Hadley on 02-28-2024 Monocytes/100 WBC (Bld) Automated monocyte % . [facility] Neutrophils Auto (Bld) [#/Vo l]Ordered By: Wes Hadley on 02-28-2024 Neutrophils (Bld) [#/Vol] Neutrophils [#/volume] in Blood by Automated count 1.8-7.7 [facility] Neutrophils [#/volume] in Bl ood by Automated countOrdered By: Wes Hadley on 02-28-2024 Neutrophils (Bld) [#/Vol] 3.9 10*3/uL Normal 1.8-7.7 [facility] Comment on above: Performed By: #### H BSAG, SMAB, CERULOP, HBSAB, ALPHA PHEN, HBCAB, HCV RX PCR, NIYA CHOICE #### [facility] , #### PT, HEPATIC, CBC, LIPID, FE and TIBC, ALLYSON #### [facility] [address] [place] [address] [place] Neutrophils/100 WBC Auto (Bl d)Ordered By: Wes Hadley on 02-28-2024 Neutrophils/100 WBC (Bld) Automated neutrophil % . [facility] No Panel InformationOrdered By: Wes Hadley on 02-28-2024 Hepatitis C Interpretation Comment . [facility] Comment on above: Not infected with HC V unless early or acute infection issuspected (which may be delayed in an immunocompromisedindividual), or other evidence exists to indicate HCVinfection. Nucleated erythrocytes [Pres ence] in Blood by Automated countOrdered By: Wes Hadley on 02-28-2024 Nucleated RBC Auto Ql (Bld) 0.1 /100{WBC} 0-0.5 [facility] Nucleated RBC Auto Ql (Bld) Nucleated erythrocytes [Presence] in Blood by Automated count 0-0.5 [facility] Platelet mean volume Auto (B ld) [Entitic vol]Ordered By: Wes Hadley on 02-28-2024 Platelet mean volume (Bld) [Entitic vol] Platelet mean volume [Entitic volume] in Blood by Automated count 6.3-10.7 [facility] Platelet mean volume [Entiti c volume] in Blood by Automated countOrdered By: Wes Hadley on 02-28-2024 Platelet mean volume (Bld) [Entitic vol] 7.8 fL Normal 6.3-10.7 [facility] Comment on above: Performed By: #### H BSAG, SMAB, CERULOP, HBSAB, ALPHA PHEN, HBCAB, HCV RX PCR, NIYA CHOICE #### [facility] , #### PT, HEPATIC, CBC, LIPID, FE and TIBC, ALLYSON #### [facility] [address] [place] [address] [place] Platelets Auto (Bld) [#/Vol] Ordered By: Wes Hadley on 02-28-2024 Platelets (Bld) [#/Vol] Platelets [#/volume] in Blood by Automated count 150-450 [facility] Platelets [#/volume] in Bloo d by Automated countOrdered By: Wes Hadley on 02-28-2024 Platelets (Bld) [#/Vol] 205 10*3/uL Normal 150-450 [facility] Comment on above: Performed By: #### H BSAG, SMAB, CERULOP, HBSAB, ALPHA PHEN, HBCAB, HCV RX PCR, NIYA CHOICE #### [facility] , #### PT, HEPATIC, CBC, LIPID, FE and TIBC, ALLYSON #### [facility] [address] [place] [address] [place] Protein [Mass/volume] in Ser um or PlasmaOrdered By: Wes Hadley on 02-28-2024 Protein [Mass/Vol] 6.8 g/dL Normal 6.4-8.9 [facility] Comment on above: Performed By: #### H BSAG, SMAB, CERULOP, HBSAB, ALPHA PHEN, HBCAB, HCV RX PCR, NIYA CHOICE #### [facility] , #### PT, HEPATIC, CBC, LIPID, FE and TIBC, ALLYSON #### [facility] [address] [place] [address] [place] Protein [Mass/Vol] Protein [Mass/volume ] in Serum or Plasma 6.4-8.9 [facility] Prothrombin time (PT)Ordered By: Wes Hadley on 02-28-2024 PT Coag (PPP) [Time] 18.5 s High 9.0-12.9 [facility] Comment on above: A hematocrit value g reater than 55% may lead to inaccurate results in coagulation testing. Patients having hematocrit values >55% require a special collection tube for coagulation studies. Please contact the laboratory at [phone] for redraw instructions. Result Comment: A he matocrit value greater than 55% may lead to inaccurate results in coagulation testing. Patients having hematocrit values >55% require a special collection tube for coagulation studies. Please contact the laboratory at [phone] for redraw instructions. Performed By: #### H BSAG, SMAB, CERULOP, HBSAB, ALPHA PHEN, HBCAB, HCV RX PCR, NIYA CHOICE #### [facility] , #### PT, HEPATIC, CBC, LIPID, FE and TIBC, ALLYSON #### [facility] [address] [place] [address] [place] PT Coag (PPP) [Time] Prothrombin time (PT) High 9.0- 12.9 [facility] Comment on above: A hematocrit value g reater than 55% may lead to inaccurate results in coagulation testing. Patients having hematocrit values >55% require a special collection tube for coagulation studies. Please contact the laboratory at [phone] for redraw instructions. RBC Auto (Bld) [#/Vol]Ordere d By: Wes Hadley on 02-28-2024 RBC (Bld) [#/Vol] Erythrocytes [#/volu me] in Blood by Automated count Low 3.60-5.00 [facility] Serum [id number] me asurementOrdered By: Wes Hadley on 02-28-2024 Alpha 1 antitrypsin [Mass/Vol] 233 mg/dL High 101-187 [facility] Serum globulin measurement b y calculation (mass/volume)Ordered By: Wes Hadley on 02-28-2024 Globulin (S) [Mass/Vol] 3.7 g/dL Normal [facility] Comment on above: Performed By: #### H BSAG, SMAB, CERULOP, HBSAB, ALPHA PHEN, HBCAB, HCV RX PCR, NIYA CHOICE #### [facility] , #### PT, HEPATIC, CBC, LIPID, FE and TIBC, ALLYSON #### [facility] [address] Serum hepatitis B virus surf shiv antibody detectionOrdered By: Wes Hadley on 02-28-2024 HBV surface Ab Ql (S) Hepatitis B virus surface Ab [Presence] in Serum . [facility] Comment on above: Non Reactive: Not im mune to HBV infection. Equivocal: Unable to determine if anti-HBs is present at levels consistent with immunity. Reactive: Anti-HBs concentration detected at greater than 10 mIU/mL. Individual is considered to be immune to infection with HBV. Serum or plasma albumin/glob ulin mass ratioOrdered By: Wes Hadley on 02-28-2024 Albumin/Globulin [Mass ratio] 0.8 {ratio} [facility] Comment on above: Performed By: #### H BSAG, SMAB, CERULOP, HBSAB, ALPHA PHEN, HBCAB, HCV RX PCR, NIYA CHOICE #### [facility] , #### PT, HEPATIC, CBC, LIPID, FE and TIBC, ALLYSON #### [facility] [address] Albumin/Globulin [Mass ratio] Serum or plasma albumin/globulin mass ratio [facility] Serum or plasma alpha 1 anti trypsin measurement (mass/volume)Ordered By: Wes Hadley on 02-28-2024 Alpha 1 antitrypsin [Mass/Vol] Serum lbvrh-5-vnmpauyrwvf measurement High 101-187 [facility] Serum or plasma alpha 1 anti trypsin phenotyping identification by immunofixationOrdered By: Wes Hadley on 02-28-2024 Alpha 1 antitrypsin phenotyping Immunofixation Nom Mm . [facility] Comment on above: MM Phenotype is co nsidered to be normal , producingnormal serum levels of uwzqj-9-cwyilcjk inhibitor andnot associated with clinical disease. Associated I8Kuvfud serum levels in other phenotypes and theirincidence [...] Ranges used to confirm phenotype.Performed at: - [employer] [id number] Director: Gonzales Poe PhD, Phone: [phone] at: [facility] [id number] Director: Ankita Ruelas MD, Phone: [phone] Alpha 1 antitrypsin phenotyping Immunofixation Nom Serum or plasma alpha 1 antitrypsin phenotyping identification by immunofixation . [facility] Comment on above: MM Phenotype is co nsidered to be normal , producingnormal serum levels of xjsyg-1-wtkhslxa inhibitor andnot associated with clinical disease. Associated J8Gpcule serum levels in other phenotypes and theirincidence [...] reference. Ranges used to confirm phenotype.Performed at: [employer] [id number] Director: Gonzales Poe PhD, Phone: [phone] at: [facility] [id number] Director: Ankita Ruelas MD, Phone: [phone] Serum or plasma ceruloplasmi n measurement (mass/volume)Ordered By: Wes Hadley on 02-28-2024 Ceruloplasmin [Mass/Vol] 22.9 mg/dL 19.0-39.0 [facility] Comment on above: Performed at: [employer] [address] [id number] Director: Gonzales Poe PhD, Phone: [phone] Ceruloplasmin [Mass/Vol] Serum or plasma ceruloplasmin measurement (mass/volume) 19.0-39.0 [facility] Comment on above: Performed at: [facility] [place] [id number] Director: Gonzales Poe PhD, Phone: [phone] Serum or plasma free cefurox nilam measurement (mass/volume)Ordered By: Wes Hadley on 02-28-2024 Cefuroxime free [Mass/Vol] Negative Negative [facility] Comment on above: Performed at: [facility] [place], [place] [id number] Director: Gonzales Poe PhD, Phone: [phone] Cefuroxime free [Mass/Vol] Serum or plasma free cefuroxime measurement (mass/volume) Negative [facility] Comment on above: Performed at: - [employer] [place], [place] [id number] Director: Gonzales Poe PhD, Phone: [phone] Serum or plasma hepatitis B virus surface antigen detection by immunoassayOrdered By: Wes Hadley on 02-28-2024 HBV surface Ag IA Ql Hepatitis B virus surface Ag [Presence] in Serum or Plasma by Immunoassay Negative [facility] Serum or plasma high density lipoprotein (HDL) cholesterol measurementOrdered By: Wes Hadley on 02-28-2024 Cholesterol in HDL [Mass/Vol] 24 mg/dL Normal 23-92 [facility] Comment on above: HDL CHOL ATP-III [...] CBC, LIPID, FE and TIBC, ALLYSON #### [facility] [address] Serum or plasma iron binding capacity measurement (mass/volume)Ordered By: Wes Hadley on 02-28-2024 Iron binding capacity [Mass/Vol] Iron binding capacity [Mass/volume] in Serum or Plasma 255-450 [facility] Serum or plasma iron saturat ion measurement (mass fraction)Ordered By: Wes Hadley on 02-28-2024 Iron saturation [Mass fraction] Iron saturation [Mass Fraction] in Serum or Plasma 20-50 [facility] Serum or plasma non-glucuron idated bilirubin measurement (mass/volume)Ordered By: Wes Hadley on 02-28-2024 Bilirubin.indirect [Mass/Vol] 2.2 mg/dL [facility] Bilirubin.indirect [Mass/Vol] Serum or plasma non-glucuronidated bilirubin measurement (mass/volume) [facility] Serum or plasma total choles terol/high density lipoprotein (HDL) cholesterol mass ratOrdered By: Wes Hadley on 02-28-2024 Cholesterol.total/Chol esterol in HDL [Mass ratio] 8.1 {ratio} Normal <5.0 [facility] Comment on above: Result Comment: PERF ORMED BY: [place] [address] PATHOLOGIST SENIOR ENVIRONMENTAL CONSULTANT SANGITA BLACK M.D. Performed By: #### H BSAG, SMAB, CERULOP, HBSAB, ALPHA PHEN, HBCAB, HCV RX PCR, NIYA CHOICE #### [facility] , #### PT, HEPATIC, CBC, LIPID, FE and TIBC, ALLYSON #### [address] Cholesterol.total/Chol esterol in HDL [Mass ratio] Serum or plasma total cholesterol/high density lipoprotein (HDL) cholesterol mass rat <5.0 [facility] Smooth Muscle Antibodyon Smooth Muscle Antibody 18 Normal 0-19 Th e [facility] Comment on above: Result Comment: Nega tive 0 - 19 Weak positive 20 - 30 Moderate to strong positive >30 Actin Antibodies are found in 52-85% of patients with autoimmune hepatitis or chronic active hepatitis and in 22% of patients with primary biliary cirrhosis. Performed at: - [facility] [id number] [employer] Executive: Gonzales Poe PhD, Phone: [phone] PERFORMED BY: [place] [address] PATHOLOGIST SENIOR ENVIRONMENTAL CONSULTANT SANGITA BLACK M.D. Performed By: #### H BSAG, SMAB, CERULOP, HBSAB, ALPHA PHEN, HBCAB, HCV RX PCR, NIYA CHOICE #### [facility] , #### PT, HEPATIC, CBC, LIPID, FE and TIBC, ALLYSON #### [facility] [address] [place] [address] [place] Transferrin [Mass/volume] in Serum or PlasmaOrdered By: Wes Hadley on 02-28-2024 Transferrin [Mass/Vol] 190 mg/dL Low 203-362 [facility] Comment on above: Performed By: #### H BSAG, SMAB, CERULOP, HBSAB, ALPHA PHEN, HBCAB, HCV RX PCR, NIYA CHOICE #### [facility] , #### PT, HEPATIC, CBC, LIPID, FE and TIBC, ALLYSON #### [facility] [address] [place] [address] [facility] Transferrin [Mass/Vol] Transferrin [Mass/volume] in Serum or Plasma Low 203-362 [facility] Triglyceride [Mass/volume] i n Serum or PlasmaOrdered By: Wes Hadley on 02-28-2024 Triglyceride [Mass/Vol] 123 mg/dL 0-149 [facility] Comment on above: TRIG ATP III CLASSIF ICATIONTRIG less than 150 mg/dL NormalTRIG 150-199 mg/dL Borderline highTRIG 200-500 mg/dL High TRIG greater than 500 mg/dL Very highStandard traceable to the Center for Disease Conrtrol and Prevention (CDC) test method. Triglyceride [Mass/Vol] Triglyceride [Mass/volume] in Serum or Plasma 0-149 [facility] Comment on above: TRIG ATP III CLASSIF ICATIONTRIG less than 150 mg/dL NormalTRIG 150-199 mg/dL Borderline highTRIG 200-500 mg/dL High TRIG greater than 500 mg/dL Very highStandard traceable to the Center for Disease Conrtrol and Prevention (CDC) test method. WBC Auto (Bld) [#/Vol]Ordere d By: Wes Hadley on 02-28-2024 WBC (Bld) [#/Vol] Leukocytes [#/volume ] in Blood by Automated count 3.8-11.6 [facility] Documentationon 01-19-2024 Documentation [id number] Jose Alejandro Bhakta 1965 F Date Provider Department Center 01/19/2024 JAREN CHUNG [facility] Family History Family history unknown: Yes Normal [facility] MG MAMM SCREEN 3D ALEX CADon 08-02-2022 MG MAMM SCREEN 3D ALEX CAD Patient: BERNADINE BHAKTA Exam Date: 08/02/2022 : 1965 Gender:F Ordering : DR BRYSON RODRIGUEZ M.D. Admission #: [id number] Family : Order #: [id number] CLICK HERE TO VIEW EXAM RADIOLOGY REPORT [...] No Treatments None Family Cancers None LOCATION: [facility] BREAST COMPOSITION: Extremely dense, which lowers the [...] Burleson MD on 08/02/2022 at 11:36 Normal [facility] FEMUR RIGHT 2 VWSon 02-12-20 22 FEMUR RIGHT [address] [facility] Department of Radiology [address] [place] [id number] == Patient Name: BERNADINE BHAKTA : 1965 Sex: F Age: Race: White Pt. Location: Patient Status: D Ordered Date: 02/11/2022 9:15:00 AM Completed Date: 02/11/2022 09:18 AM Requesting Provider: BECK DELACRUZ Attending Provider: BECK DELACRUZ Report Copy To: Signs & Symptoms: Z48.89 Encounter for other specified surgical aftercare History: Comments: Evaluate Exam: FEMUR RIGHT 2 VWS == FEMUR RIGHT 2 VWS 02/11/2022 9:20 AM [...] report. Electronically signed: Cherie Coronel. Transcribed by: [email or web address], User Resident: PHILIP ARMANDO Electronically Signed by: CHERIE CORONEL @ 02/12/2022 03:34 PM I personally read this/these film(s) with this resident Normal [facility] Comment on above: Order Comment: Yes: Add to Previous draw if able FEMUR RIGHT 2 VWSon 01-22-20 22 FEMUR RIGHT [address] [facility] Department of Radiology [address] [place] [id number] == Patient Name: BERNADINE BHAKTA : 1965 Sex: F Age: Race: White Pt. Location: Patient Status: O Ordered Date: 01/21/2022 8:45:00 AM Completed Date: 01/21/2022 08:48 AM Requesting Provider: BECK DELACRUZ Attending Provider: BECK DELACRUZ Report Copy To: Signs & Symptoms: Z48.89 Encounter for other specified surgical aftercare I10 History: Comments: Evaluate Exam: FEMUR RIGHT 2 VWS == EXAMINATION: FEMUR RIGHT 2 VWS 01/21/2022 8:48 [...] See the discussion above. Electronically signed: Joe Diop. Transcribed by: [email or web address], User Resident: Electronically Signed by: JOE DIOP @ 01/21/2022 09:27 AM Normal [facility] Comment on above: Order Comment: No: D o not add to previous draw BASIC METABOLIC PANELon 07-2 Calcium [Mass/Vol] 8.8 mg/dL Normal 8.6-10.[address] [facility] Comment on above: Order Comment: Yes: Add to Previous draw if able Performed By: #### 0 0071 #### [facility] [address] [place] [address], [place] Chloride [Moles/Vol] 99 mmol/L Normal 98-[address] [facility] Comment on above: Order Comment: Yes: Add to Previous draw if able Performed By: #### 0 0071 #### [facility] [address] [place] [address], [place] CO2 [Moles/Vol] 23 mmol/L Normal 21-[address] [facility] Comment on above: Order Comment: Yes: Add to Previous draw if able Performed By: #### 0 0071 #### [facility] [address] [place] [address], [place] Creatinine [Mass/Vol] 0.81 mg/dL Normal 0.60-1.[address] [facility] Comment on above: Order Comment: Yes: Add to Previous draw if able Performed By: #### 0 0071 #### [facility] [address] [place] [address], [place] GFR/1.73 sq M.predicted among blacks MDRD (S/P/Bld) [Vol rate/Area] mL/min/{1.73_m2} Normal >[address] [facility] Comment on above: Order Comment: Yes: Add to Previous draw if able Performed By: #### 0 0071 #### [facility] [address] [place] [address], [place] GFR/1.73 sq M.predicted among non-blacks MDRD (S/P/Bld) [Vol rate/Area] mL/min/{1.73_m2} Normal >[address] [facility] Comment on above: Order Comment: Yes: Add to Previous draw if able Performed By: #### 0 0071 #### [facility] [address] [place] [address], [place] Glucose [Mass/Vol] 155 mg/dL High 70-[address] [facility] Comment on above: Order Comment: Yes: Add to Previous draw if able Performed By: #### 0 0071 #### [facility] [address] [place] [address], [place] Potassium [Moles/Vol] 3.6 mmol/L Normal 3.5-5.[address] [facility] Comment on above: Order Comment: Yes: Add to Previous draw if able Performed By: #### 0 0071 #### [facility] [address] [place] [address], [place] Sodium [Moles/Vol] 134 mmol/L Low 136-[address] [facility] Comment on above: Order Comment: Yes: Add to Previous draw if able Performed By: #### 0 0071 #### [facility] [address] [place] [address], [facility] Urea nitrogen [Mass/Vol] 7 mg/dL Normal 7-[address] [facility] Comment on above: Order Comment: Yes: Add to Previous draw if able Performed By: #### 0 0071 #### [facility] [address] [address], [facility] POC GLUCOSE LABon 01-09-2022 Glucose [Mass/Vol] 105 mg/dL High 70-[address] [facility] Comment on above: Performed By: #### 0 0071 #### [facility] [address] [place] [address], [facility] Glucose [Mass/Vol] 165 mg/dL High 70-[address] [facility] Comment on above: Performed By: #### 0 0071 #### [facility] [address] [address], [facility] BASIC METABOLIC PANELon 12-19 Calcium [Mass/Vol] 9.3 mg/dL Normal 8.6-10.[address] [facility] Comment on above: Order Comment: Unkno wn Performed By: #### 0 0071 #### [facility] [address] [place] [address], [place] Chloride [Moles/Vol] 98 mmol/L Normal 98-[address] [facility] Comment on above: Order Comment: Unkno wn Performed By: #### 0 0071 #### [facility] [address] [place] [address], [place] CO2 [Moles/Vol] 26 mmol/L Normal 21-[address] [facility] Comment on above: Order Comment: Unkno wn Performed By: #### 0 0071 #### [facility] [address] [place] [address], [place] Creatinine [Mass/Vol] 0.60 mg/dL Normal 0.60-1.[address] [facility] Comment on above: Order Comment: Unkno wn Performed By: #### 0 0071 #### [facility] [address] [place] [address], [place] GFR/1.73 sq M.predicted among blacks MDRD (S/P/Bld) [Vol rate/Area] mL/min/{1.73_m2} Normal >[address] [facility] Comment on above: Order Comment: Unkno wn Performed By: #### 0 0071 #### [facility] [address] [place] [address], [place] GFR/1.73 sq M.predicted among non-blacks MDRD (S/P/Bld) [Vol rate/Area] mL/min/{1.73_m2} Normal >[address] [facility] Comment on above: Order Comment: Unkno wn Performed By: #### 0 0071 #### [facility] [address] [place] [address], [place] Glucose [Mass/Vol] 124 mg/dL High 70-[address] [facility] Comment on above: Order Comment: Unkno wn Performed By: #### 0 0071 #### [facility] [address] [place] [address], [place] Potassium [Moles/Vol] 4.4 mmol/L Normal 3.5-5.[address] [facility] Comment on above: Order Comment: Unkno wn Performed By: #### 0 0071 #### [facility] [address] [place] [address], [place] Sodium [Moles/Vol] 133 mmol/L Low 136-[address] [facility] Comment on above: Order Comment: Unkno wn Performed By: #### 0 0071 #### [facility] [address] [place] [address], [facility] Urea nitrogen [Mass/Vol] 5 mg/dL Low 7-[address] [facility] Comment on above: Order Comment: Unkno wn Performed By: #### 0 0071 #### [facility] [address] [place] [address], [facility] CBC COMPLETE BLOOD COUNTon 01-08-2022 Erythrocyte distribution width (RBC) [Ratio] 13.1 % Normal 11.5-15.[address] [facility] Comment on above: Order Comment: No: D o not add to previous draw Performed By: #### 0 0071 #### [facility] [address] [place] [address], [facility] Hematocrit (Bld) [Volume fraction] 35.9 % Low 36.0-45.[address] [facility] Comment on above: Order Comment: No: D o not add to previous draw Performed By: #### 0 0071 #### [facility] [address] [place] [address], [facility] Hemoglobin (Bld) [Mass/Vol] 11.9 g/dL Low 12.0-15.[address] [facility] Comment on above: Order Comment: No: D o not add to previous draw Performed By: #### 0 0071 #### [facility] [address] [place] [address], [place] MCH (RBC) [Entitic mass] 34.2 pg High 27.0-33.[address] [facility] Comment on above: Order Comment: No: D o not add to previous draw Performed By: #### 0 0071 #### [facility] [address] [place] [address], [facility] MCHC (RBC) [Mass/Vol] 33.1 g/dL Normal 32.0-35.[address] [facility] Comment on above: Order Comment: No: D o not add to previous draw Performed By: #### 0 0071 #### [facility] [address] [place] [address], [facility] MCV (RBC) [Entitic vol] 103.2 fL High 82.0-98.[address] [facility] Comment on above: Order Comment: No: D o not add to previous draw Performed By: #### 0 0071 #### [facility] [address] [place] [address], [facility] Nucleated RBC/100 WBC (Bld) [Ratio] 0 % Normal 0-[address] [facility] Comment on above: Order Comment: No: D o not add to previous draw Performed By: #### 0 0071 #### [facility] [address] [address], [facility] PLAT CNT 175 10*3/uL Normal 150-[address] [facility] Comment on above: Order Comment: No: D o not add to previous draw Performed By: #### 0 0071 #### [facility] [address] [place] [address], [facility] RBC (Bld) [#/Vol] 3.48 10*6/uL Low 3.80-5.[address] [facility] Comment on above: Order Comment: No: D o not add to previous draw Performed By: #### 0 0071 #### [facility] [address] [place] [address], [facility] WBC (Bld) [#/Vol] 8.17 10*3/uL Normal 4.00-10.[address] [facility] Comment on above: Order Comment: No: D o not add to previous draw Performed By: #### 0 0071 #### [address] FEMUR RIGHT 2 [facility] 01-09-20 FEMUR RIGHT [address] [facility] Department of Radiology [address] [place] [id number] == Patient Name: BERNADINE BHAKTA : 1965 Sex: F Age: Race: White Pt. Location: [id number] Patient Status: I Ordered Date: 01/08/2022 1:30:00 PM Completed Date: 01/08/2022 12:36 PM Requesting Provider: BECK DELACRUZ Attending Provider: BECK DELACRUZ Report Copy To: Signs & Symptoms: ORIF RIGHT DISTAL FEMUR History: Comments: ORIF RIGHT DISTAL FEMUR Exam: FEMUR RIGHT 2 [facility] == FEMUR RIGHT 2 [facility] 01/08/2022 12:36 PM CLINICAL INDICATIONS: ORIF RIGHT [...] submitted Electronically signed: Kat Newton. Transcribed by: [email or web address], User Resident: Electronically Signed by: KAT NEWTON @ 01/08/2022 01:03 PM Normal [facility] Comment on above: Order Comment: No: D o not add to previous draw Operative Reporton Operative Report MR#: [id number] [facility] Pt. Name: Bernadine Bhakta Room #: [id number] Discharge Date: Birthdate: 1965 OPERATIVE REPORT DATE [...] fracture after a fall. She presented to [facility] Emergency Department, where x-rays were obtained [...] not included)... Normal [facility] POC GLUCOSE LABon 01-08-2022 Glucose [Mass/Vol] 141 mg/dL High 70-100 [facility] Comment on above: Performed By: #### 3 1400, [id number], [id number] #### [facility] [address] Glucose [Mass/Vol] 227 mg/dL High 70-100 [facility] Comment on above: Performed By: #### 3 1400, 074[address], 21560 #### [facility] [address] [place] [address], [facility] Glucose [Mass/Vol] 158 mg/dL High 70-[address] [facility] Comment on above: Performed By: #### 3 1400, 32995, 82092 #### [facility] [address] *MRSA/MSSA DNA NASALon 01-07 *MRSA/MSSA DNA NASAL Clinical Report: (D ) Specimen/Source: NASAL SWAB/NARES Collected: 01/07/2022 07:45 Status: Final Last Updated: 01/08/2022 20:33 MSSA DNA (Final) Methicillin Susceptible Staphylococcus aureus DNA Detected MRSA DNA (Final) Negative Normal [facility] Comment on above: Performed By: #### 3 1400, 54382, 77776 #### [facility] [address] [place] [address], [facility] APTTon 01-07-2022 aPTT Coag (Bld) [Time] 35.6 s High 25.0-35.[address] [facility] Comment on above: Result Comment: ALL [...] THIS PURPOSE. Performed By: #### 3 1400, 89742, 06216 #### [facility] [address] [place] [address], [facility] BASIC METABOLIC PANELon 07-2 Calcium [Mass/Vol] 9.2 mg/dL Normal 8.6-10.[address] [facility] Comment on above: Order Comment: No: D o not add to previous draw Performed By: #### 0 0071 #### [facility] [address] [place] [address], [facility] Chloride [Moles/Vol] 98 mmol/L Normal 98-[address] [facility] Comment on above: Order Comment: No: D o not add to previous draw Performed By: #### 0 0071 #### [facility] [address] [place] [address], [facility] CO2 [Moles/Vol] 24 mmol/L Normal 21-[address] [facility] Comment on above: Order Comment: No: D o not add to previous draw Performed By: #### 0 0071 #### [facility] [address] [place] [address], [facility] Creatinine [Mass/Vol] 0.57 mg/dL Low 0.60-1.[address] [facility] Comment on above: Order Comment: No: D o not add to previous draw Performed By: #### 0 0071 #### [facility] [address] [place] [address], [facility] GFR/1.73 sq M.predicted among blacks MDRD (S/P/Bld) [Vol rate/Area] mL/min/{1.73_m2} Normal >[address] [facility] Comment on above: Order Comment: No: D o not add to previous draw Performed By: #### 0 0071 #### [facility] [address] [place] [address], [facility] GFR/1.73 sq M.predicted among non-blacks MDRD (S/P/Bld) [Vol rate/Area] mL/min/{1.73_m2} Normal >[address] [facility] Comment on above: Order Comment: No: D o not add to previous draw Performed By: #### 0 0071 #### [facility] [address] [place] [address], [facility] Glucose [Mass/Vol] 146 mg/dL High 70-[address] [facility] Comment on above: Order Comment: No: D o not add to previous draw Performed By: #### 0 0071 #### [facility] [address] [place] [id number], [facility] Potassium [Moles/Vol] 4.5 mmol/L Normal 3.5-5.[address] [facility] Comment on above: Order Comment: No: D o not add to previous draw Performed By: #### 0 0071 #### [facility] [address] [place] [id number], [facility] Sodium [Moles/Vol] 133 mmol/L Low 136-[address] [facility] Comment on above: Order Comment: No: D o not add to previous draw Performed By: #### 0 0071 #### [facility] [address] [address], [facility] Urea nitrogen [Mass/Vol] 5 mg/dL Low 7-[address] [facility] Comment on above: Order Comment: No: D o not add to previous draw Performed By: #### 0 0071 #### [facility] [address] [place] [id number], [facility] CBC W/DIFFon 01-07-2022 ABS IMM GRANS 0.0 10*3/uL Normal 0.0-0.[address] [facility] Comment on above: Performed By: #### 3 1399, , 64839 #### [facility] [address] [place] [address], [facility] ABS NEUTROPHILS 4.5 10*3/uL Normal 1.6-7.[address] [facility] Comment on above: Performed By: #### 3 1399, , 66534 #### [facility] [address] [place] [address], [place] Basophils (Bld) [#/Vol] 0.0 10*3/uL Normal 0.0-0.[address] [facility] Comment on above: Performed By: #### 3 1399, , 65054 #### [facility] [address] [place] [address], [facility] Basophils/100 WBC (Bld) 0.7 % Normal 0.0-1.[address] [facility] Comment on above: Performed By: #### 3 1399, , 62240 #### [facility] [address] [place] [address], [place] Eosinophils (Bld) [#/Vol] 0.0 10*3/uL Normal 0.0-0.[address] [facility] Comment on above: Performed By: #### 3 1399, , 25933 #### [facility] [address] [place] [address], [place] Eosinophils/100 WBC (Bld) 0.3 % Normal 0.0-6.[address] [facility] Comment on above: Performed By: #### 3 1399, , 29360 #### [facility] [address] [place] [address], [facility] Erythrocyte distribution width (RBC) [Ratio] 13.2 % Normal 11.5-15.[address] [facility] Comment on above: Performed By: #### 3 1399, , 39867 #### [facility] [address] [place] [id number], [facility] Hematocrit (Bld) [Volume fraction] 37.8 % Normal 36.0-45.[address] [facility] Comment on above: Performed By: #### 3 1399, , 73026 #### [facility] [address] [place] [address], [facility] Hemoglobin (Bld) [Mass/Vol] 13.0 g/dL Normal 12.0-15.[address] [facility] Comment on above: Performed By: #### 3 1399, , 99852 #### [facility] [address] [facility] [place] [address], [facility] IMMATURE GRANS 0.5 % Normal 0.0-1.[address] [facility] Comment on above: Performed By: #### 3 1399, , 36337 #### [facility] [address] [facility]. [address] Lymphocytes (Bld) [#/Vol] 1.0 10*3/uL Low 1.2-4.[address] [facility] Comment on above: Performed By: #### 3 1399, , 54024 #### [facility] [address] [facility] [place] [place] [address], [facility] Lymphocytes/100 WBC (Bld) 16.8 % Low 20.0-45.[address] [facility] Comment on above: Performed By: #### 3 1399, , 82413 #### [facility] [address] [facility] [place] [place] [address], [facility] MCH (RBC) [Entitic mass] 34.2 pg High 27.0-33.[address] [facility] Comment on above: Performed By: #### 3 1399, , 42966 #### [facility] [address] [facility] [place] [place] [address], [facility] MCHC (RBC) [Mass/Vol] 34.4 g/dL Normal 32.0-35.[address] [facility] Comment on above: Performed By: #### 3 1399, , 75509 #### [facility] [address] [place] [address], [facility] MCV (RBC) [Entitic vol] 99.5 fL High 82.0-98.[address] [facility] Comment on above: Performed By: #### 3 1400, , 26669 #### [facility] [address] [place] [address], [facility] Monocytes (Bld) [#/Vol] 0.3 10*3/uL Normal 0.1-1.[address] [facility] Comment on above: Performed By: #### 3 1399, , 52030 #### [facility] [address] [facility] [place] [place] [address], [facility] MONOS 4.7 % Low 5.0-12.[address] [facility] Comment on above: Performed By: #### 3 1399, , 08122 #### [facility] [address] [facility] [place] [place] [address], [facility] Neutrophils/100 WBC (Bld) 77.0 % High 40.0-72.[address] [facility] Comment on above: Performed By: #### 3 1399, , 47120 #### [facility] [address] [facility] [place] [place] [address], [facility] Nucleated RBC/100 WBC (Bld) [Ratio] 0 % Normal 0-[address] [facility] Comment on above: Performed By: #### 3 1399, , 41954 #### [facility] [address] [place] [address], [facility] PLAT CNT 177 10*3/uL Normal 150-[address] [facility] Comment on above: Performed By: #### 3 1399, , 54297 #### [facility] [address] [place] [address], [facility] RBC (Bld) [#/Vol] 3.80 10*6/uL Normal 3.80-5.[address] [facility] Comment on above: Performed By: #### 3 1400, 26044, 74998 #### [facility] [address] [place] [address], [facility] WBC (Bld) [#/Vol] 5.90 10*3/uL Normal 4.00-10.[address] [facility] Comment on above: Performed By: #### 3 1400, 93121, 40005 #### [facility] [address] [place] [address], [facility] COMP METABOLIC PANELon 01-07 Albumin [Mass/Vol] 3.8 g/dL Normal 3.5-5.[address] [facility] Comment on above: Performed By: #### 0 0121, 79105, 94223 #### [facility] [address] [place] [address], [facility] ALKALINE PHOSPH 108 IU/L High 34-[address] [facility] Comment on above: Performed By: #### 0 0121, 47031, 51757 #### [facility] [address] [place] [address], [facility] ALT [Catalytic activity/Vol] 32 U/L Normal 7-[address] [facility] Comment on above: Performed By: #### 0 0121, 40190, 65201 #### [facility] [address] [place] [address], [facility] AST [Catalytic activity/Vol] 122 U/L High 13-[address] [facility] Comment on above: Performed By: #### 0 0121, 27904, 48406 #### [facility] [address] [place] [address], [place] Bilirubin [Mass/Vol] 0.6 mg/dL Normal 0.3-1.[address] [facility] Comment on above: Performed By: #### 0 0121, 49155, 80875 #### [facility] [address] [place] [address], [place] Calcium [Mass/Vol] 8.2 mg/dL Low 8.6-10.[address] [facility] Comment on above: Performed By: #### 0 0121, 61224, 06786 #### [facility] [address] [place] [address], [facility] Chloride [Moles/Vol] 94 mmol/L Low 98-[address] [facility] Comment on above: Performed By: #### 0 0121, 36026, 06822 #### [facility] [address] [place] [address], [place] CO2 [Moles/Vol] 22 mmol/L Normal 21-[address] [facility] Comment on above: Performed By: #### 0 0121, 79807, 88095 #### [facility] [address] [place] [address], [place] Creatinine [Mass/Vol] 0.59 mg/dL Low 0.60-1.[address] [facility] Comment on above: Performed By: #### 0 0121, , 27271 #### [facility] [address] [place] [address], [place] GFR/1.73 sq M.predicted among blacks MDRD (S/P/Bld) [Vol rate/Area] mL/min/{1.73_m2} Normal >[address] [facility] Comment on above: Performed By: #### 0 0121, , 32389 #### [facility] [address] [place] [address], [place] GFR/1.73 sq M.predicted among non-blacks MDRD (S/P/Bld) [Vol rate/Area] mL/min/{1.73_m2} Normal >[address] [facility] Comment on above: Performed By: #### 0 0121, 80314, 16549 #### [facility] [address] [place] [address], [place] Glucose [Mass/Vol] 129 mg/dL High 70-[address] [facility] Comment on above: Performed By: #### 0 0121, 39243, 34911 #### [facility] [address] [place] [address], [facility] Potassium [Moles/Vol] 4.4 mmol/L Normal 3.5-5.[address] [facility] Comment on above: Performed By: #### 0 0121, 90173, 32364 #### [facility] [address] [place] [address], [facility] Protein [Mass/Vol] 6.6 g/dL Normal 6.0-8.[address] [facility] Comment on above: Performed By: #### 0 0121, 40857, 28531 #### [facility] [address] [place] [address], [facility] Sodium [Moles/Vol] 129 mmol/L Low 136-[address] [facility] Comment on above: Performed By: #### 0 0121, 84569, 69567 #### [facility] [address] [place] [address], [facility] Urea nitrogen [Mass/Vol] 4 mg/dL Low 7-[address] [facility] Comment on above: Performed By: #### 0 0121, 53078, 35970 #### [facility] [address] [facility]. [address] LOWER EXTREMITY WO CONTRA ST RIGHTon 01-07-2022 CT LOWER EXTREMITY WO CONTRAST RIGHT [facility] Department of Radiology [address] [place] [id number] == Patient Name: BERNADINE BHAKTA : 1965 Sex: F Age: Race: White Pt. Location: [facility] Patient Status: I Ordered Date: 01/07/2022 3:10:00 AM Completed Date: 01/07/2022 04:31 AM Requesting Provider: THEO JASSO Attending Provider: MALI GREEN Report Copy To: Signs & Symptoms: Fracture History: See Comments Comments: Fractures, CT w/o contrast to scan from right mid-femur, down thru knee, to level of mid tibia to assess for intraarticular extension of fracture Exam: CT LOWER EXTREMITY WO CONTRAST RIGHT == CT LOWER EXTREMITY WO CONTRAST RIGHT HISTORY: [...] Approved by:Elías Jolley01/07/2022 4:52 AM. I, Mehul Zelaya,have reviewed the image(s) and agree with the findings in this report. Electronically signed: Mehul Zelaya. Transcribed by: [email or web address], User Resident: ELÍAS GUPTA Electronically Signed by: MEHUL ZELAYA @ 01/07/2022 05:00 AM I personally read this/these film(s) with this resident Normal [facility] Comment on above: Order Comment: No: D o not add to previous draw FEMUR RIGHT 2 Son 01-08-20 22 FEMUR RIGHT [address] [facility] Department of Radiology [address] [place] [id number] == Patient Name: BERNADINE BHAKTA : 1965 Sex: F Age: Race: White Pt. Location: [facility] Patient Status: E Ordered Date: 01/07/2022 1:45:00 AM Completed Date: 01/07/2022 02:03 AM Requesting Provider: MALI GREEN Attending Provider: MALI GREEN Report Copy To: Signs & Symptoms: Pain History: Comments: FX Exam: FEMUR RIGHT 2 S == FEMUR RIGHT 2 [facility] HISTORY: Right thigh pain status post fall [...] articular surface. Approved by:Elías Jolley01/07/2022 2:21 AM. IMehul,have reviewed the image(s) and agree with the findings in this report. Electronically signed: Mehul Zelaya. Transcribed by: [email or web address], User Resident: ELÍAS GUPTA Electronically Signed by: MEHUL ZELAYA @ 01/07/2022 02:24 AM I personally read this/these film(s) with this resident Normal [facility] Comment on above: Order Comment: No: D o not add to previous draw HEPATITIS B CORE ANTIBODYon 01-07-2022 HEP B CORE AB Non-Reactive Normal NONREACTIVE [facility] Comment on above: Order Comment: Yes: Add to Previous draw if able Performed By: #### 3 1400, 39363, 66544 #### [facility] [address] [facility]. [address] HEPATITIS B SURFACE ANTIGEN QUALon 01-07-2022 HEP B SURF AG QUAL Non-Reactive Normal NONREACTIVE [facility] Comment on above: Order Comment: Yes: Add to Previous draw if able Performed By: #### 3 1400, 99207, 80656 #### [facility] [address] [facility]. [address] HEPATITIS C ANTIBODYon 01-07 ANTI-HCV Non-Reactive Normal NONREACTIVE [facility] Comment on above: Order Comment: No: D o not add to previous draw Performed By: #### 3 1400, 98491, 01324 #### [facility] [address] [facility]. [address] KNEE RIGHT 3 VWSon 2 KNEE RIGHT [address] [facility] Department of Radiology [address] [place] [id number] == Patient Name: BERNADINE BHAKTA : 1965 Sex: F Age: Race: White Pt. Location: [facility] Patient Status: E Ordered Date: 01/07/2022 12:40:00 AM Completed Date: 01/07/2022 01:00 AM Requesting Provider: MALI GREEN Attending Provider: MALI GREEN Report Copy To: Signs & Symptoms: Pain History: Comments: FX Exam: KNEE RIGHT 3 VWS == KNEE RIGHT 3 VWS HISTORY: Right knee [...] Approved by:Elías Jolley01/07/2022 1:55 AM. I, Mehul Zelaya,have reviewed the image(s) and agree with the findings in this report. Electronically signed: Mehul Zelaya. Transcribed by: [email or web address], User Resident: ELÍAS GUPTA Electronically Signed by: MEHUL ZELAYA @ 01/07/2022 02:17 AM I personally read this/these film(s) with this resident Normal [facility] Comment on above: Order Comment: No: D o not add to previous draw OSMOLALITY BLOODon 2 Osmolality [Osmolality] 337 mosm/kg Critically high 285-[address] [facility] Comment on above: Performed By: #### 0 0121, 17902, 16099 #### [facility] [address] [place] [address], [facility] OSMOLALITY URINEon 2 OSMOLALITY 499 mOsm/kg Normal 50-[address] [facility] Comment on above: Order Comment: Yes: Add to Previous draw if able Performed By: #### 3 1400, 61564, 25797 #### [facility] [address] [place] [address], [facility] POC GLUCOSE LABon 01-07-2022 Glucose [Mass/Vol] 136 mg/dL High 70-[address] [facility] Comment on above: Performed By: #### 3 1400, 67392, 20689 #### [facility] [address] [place] [address], [place] Glucose [Mass/Vol] 151 mg/dL High 70-[address] [facility] Comment on above: Performed By: #### 0 0071 #### [facility] [address] [place] [address], [place] Glucose [Mass/Vol] 127 mg/dL High 70-[address] [facility] Comment on above: Performed By: #### 0 0071 #### [facility] [address] [place] [address], [facility] POC SARS COV2 IDon 2 SARS-CoV-2 (COVID-19) RNA KEELEY+probe Ql (Unsp spec) Negative Normal NEGATIVE [facility] Comment on above: Result Comment: ID [...] Accreditation. Performed By: #### 0 0071 #### [address] [place] [address], [facility] PORTABLE TIBIA FIBULA RIGHTo n 01-07-2022 PORTABLE TIBIA FIBULA RIGHT [facility] Department of Radiology [address] [place] [id number] == Patient Name: BERNADINE BHAKTA : 1965 Sex: F Age: Race: White Pt. Location: [facility] Patient Status: E Ordered Date: 01/07/2022 3:10:00 AM Completed Date: 01/07/2022 03:35 AM Requesting Provider: THEO JASSO Attending Provider: MALI GREEN Report Copy To: Signs & Symptoms: Pain History: Comments: FX, AP and lateral of tib/fib please Exam: PORTABLE TIBIA FIBULA RIGHT == PORTABLE TIBIA FIBULA RIGHT 01/07/2022 3:35 AM [...] fibula. Distal femur fracture. Electronically signed: Mehul Zelaya. Transcribed by: [email or web address], User Resident: Electronically Signed by: MEHUL ZELAYA @ 01/07/2022 03:42 AM Normal [facility] Comment on above: Order Comment: No: D o not add to previous draw PROTHROMBIN TIMEon 2 INR Coag (PPP) [Relative time] 1.22 {INR} High 0.91-1.[address] [facility] Comment on above: Result Comment: ACCC [...] CHEST 1995;[id number]. Performed By: #### 3 1400, 81683, 58896 #### [facility] [address] PT Coag (PPP) [Time] 15.4 s High 12.3-14.[address] [facility] Comment on above: Result Comment: ALL RESULTS MUST BE INTERPRETED WITH RESPECT TO BLOOD DRAWING ARTIFACT OR DILUTION ERROR OF ANTICOAGULANT AT THE TIME OF SAMPLING. Performed By: #### 3 1400, 54686, 79343 #### [facility] [address] [place] [address], [place] RBC'S 2 UNITSon 01-07-2022 CROSSMATCH INTERP 1 COMP Normal [facility] Comment on above: Performed By: #### 3 1400, 33065, 81206 #### [facility] [address] [place] [address], [place] CROSSMATCH INTERP 2 COMP Normal [facility] Comment on above: Performed By: #### 3 1400, 87806, 09469 #### [facility] [address] [place] [address], [place] PRODUCT CODE 1 E0336 Normal [facility] Comment on above: Performed By: #### 3 1400, 66652, 74347 #### [facility] [address] [place] [address], [place] PRODUCT CODE 2 E0336 Normal [facility] Comment on above: Performed By: #### 3 1400, 82475, 95541 #### [facility] [address] [place] [address], [place] PRODUCT STATUS 1 RE Normal [facility] Comment on above: Result Comment: Resu lt changed by IF on 01/11/2022 08:57. The previous value was XM. Performed By: #### 3 1400, 20216, 46322 #### [facility] [address] [place] [address], [place] PRODUCT STATUS 2 RE Normal [facility] Comment on above: Result Comment: Resu lt changed by IF on 01/11/2022 08:57. The previous value was XM. Performed By: #### 3 1400, 20168, 06744 #### [facility] [address] [place] [address], [place] UNIT ABO 1 A Normal [facility] Comment on above: Performed By: #### 3 1400, 24583, 66657 #### [facility] [address] [place] [address], [facility] UNIT ABO 2 A Normal [facility] Comment on above: Performed By: #### 3 1400, 05839, 95799 #### [facility] [address] [place] [address], [facility] UNIT ID 1 [id number] Normal [address] [facility] Comment on above: Performed By: #### 3 1400, 21851, 97361 #### [facility] [address] [place] [address], [facility] UNIT ID 2 [id number] Normal [facility] Comment on above: Performed By: #### 3 1400, 69056, 12591 #### [facility] [address] [place] [address], [facility] UNIT RH 1 Positive Normal [facility] Comment on above: Performed By: #### 3 1400, 61061, 49478 #### [facility] [address] [place] [address], [facility] UNIT RH 2 Positive Normal [facility] Comment on above: Performed By: #### 3 1400, 98926, 22515 #### [facility] [address] [place] [address], [facility] SODIUM URINE RANDOMon 2021 Sodium (U) [Moles/Vol] 21 mmol/L Normal Th e [facility] Comment on above: Order Comment: Yes: Add to Previous draw if able Result Comment: Ther e are no established reference values for random urine specimens Performed By: #### 3 1400, 41389, 88210 #### [facility] [address] [facility] [place] [place] [address], [facility] TYPE AND SCREENon 01-07-2022 ABO INTERPRETATION A Normal [facility] Comment on above: Performed By: #### 6 2586 #### [facility] [address] [place] [address], [facility] RH INTERPRETATION Positive Normal [facility] Comment on above: Performed By: #### 6 2586 #### [facility] [address] [place] [address], [facility] VITAMIN D 25-HYDROXYon 01-07 VITAMIN D 25-OH 33.8 ng/mL Normal 30.0-80.[address] [facility] Comment on above: Result Comment: >80. 0 Toxicity possible Performed By: #### 0 0121, 21902, 86387 #### [facility] [address] [place], [place] [address] [place] [address] Vital Signs Date Time Vital Sign Value Performing Clinician Facility 02-07-2025 08:48-0400 Body height 162.6 cm Raulito Dang MD Work Phone: [facility] 02-07-2025 08:48-0400 Body mass index (BMI) [Ratio] 24.37 kg/m2 Raulito Dang MD Work Phone: [facility] 02-07-2025 08:48-0400 Body weight 64.41 kg Raulito Dang MD Work Phone: [facility] 02-07-2025 08:48-0400 Diastolic blood pressure 53 mm[Hg] Raulito Dang MD Work Phone: [facility] 02-07-2025 08:48-0400 Systolic blood pressure 86 mm[Hg] Raulito Dang MD Work Phone: [facility] 01-03-2025 09:15-0400 Body mass index (BMI) [Ratio] 24.03 kg/m2 Raulito Dang MD Work Phone: [facility] 01-03-2025 09:15-0400 Body weight 63.5 kg Raulito Dang MD Work Phone: [facility] 01-03-2025 09:15-0400 Diastolic blood pressure 75 mm[Hg] Raulito Dang MD Work Phone: [facility] 01-03-2025 09:15-0400 Heart rate 91 /min Raulito Dang MD Work Phone: [facility] 01-03-2025 09:15-0400 Systolic blood pressure 115 mm[Hg] Raulito Dang MD Work Phone: [facility] 12-14-2024 12:00-0400 Diastolic blood pressure 59 mm[Hg] Raulito Dang MD Work Phone: [facility] 12-14-2024 12:00-0400 Heart rate 72 /min Raulito Dang MD Work Phone: [facility] 12-14-2024 12:00-0400 Respiratory rate 13 /min Raulito Dang MD Work Phone: [facility] 12-14-2024 12:00-0400 SaO2% (BldA) [Mass fraction] 99 % Raulito Dang MD Work Phone: [facility] 12-14-2024 12:00-0400 Systolic blood pressure 108 mm[Hg] Raulito Dang MD Work Phone: [facility] 12-14-2024 11:42-0400 Body height 162.6 cm Raulito Dang MD Work Phone: [facility] 12-14-2024 11:42-0400 Body mass index (BMI) [Ratio] 23.69 kg/m2 Raulito Dang MD Work Phone: [facility] 12-14-2024 11:42-0400 Body weight 62.6 kg Raulito Dang MD Work Phone: [facility] 12-14-2024 11:00-0400 Body temperature 97.9 [degF] Raulito Dang MD Work Phone: [facility] 12-13-2024 16:12-0400 Body temperature 98.6 [degF] Raulito Dang MD Work Phone: [facility] 12-13-2024 16:12-0400 SaO2% (BldA) [Mass fraction] 100.5 % Raulito Dang MD Work Phone: [facility] 12-10-2024 09:52-0400 Body height 162.6 cm [facility] 3 [facility] 12-10-2024 09:52-0400 Body mass index (BMI) [Ratio] 23.69 kg/m2 [facility] 3 [facility] 12-10-2024 09:52-0400 Body temperature 97.59 [degF] [facility] 3 [facility] 12-10-2024 09:52-0400 Body weight 62.6 kg [facility] 3 [facility] 12-10-2024 09:52-0400 Diastolic blood pressure 71 mm[Hg] [facility] 3 [facility] 12-10-2024 09:52-0400 Heart rate 72 /min [facility] 3 [facility] 12-10-2024 09:52-0400 Respiratory rate 16 /min [facility] 3 [facility] 12-10-2024 09:52-0400 SaO2% (BldA) [Mass fraction] 100 % [facility] 3 [facility] 12-10-2024 09:52-0400 Systolic blood pressure 118 mm[Hg] [facility] 3 [facility] 12-04-2024 11:42-0400 Body height 162.6 cm Gene Ontiveros MD Work Phone: [facility] 12-04-2024 11:42-0400 Body mass index (BMI) [Ratio] 23.34 kg/m2 Gene Ontiveros MD Work Phone: [facility] 12-04-2024 11:42-0400 Body weight 61.69 kg Gene Ontiveros MD Work Phone: [facility] 12-04-2024 11:42-0400 Diastolic blood pressure 80 mm[Hg] Gene Ontiveros MD Work Phone: [facility] 12-04-2024 11:42-0400 Heart rate 71 /min Gene Ontiveros MD Work Phone: [facility] 12-04-2024 11:42-0400 Respiratory rate 16 /min Gene Ontiveros MD Work Phone: [facility] 12-04-2024 11:42-0400 SaO2% (BldA) [Mass fraction] 97 % Gene Ontiveros MD Work Phone: [facility] 12-04-2024 11:42-0400 Systolic blood pressure 118 mm[Hg] Gene Ontiveros MD Work Phone: [facility] 11-29-2024 10:21-0400 Body height 162.6 cm Raulito Dang MD Work Phone: [facility] 11-29-2024 10:21-0400 Body mass index (BMI) [Ratio] 24.03 kg/m2 Raulito Dang MD Work Phone: [facility] 11-29-2024 10:21-0400 Body temperature 97.11 [degF] Raulito Dang MD Work Phone: [facility] 11-29-2024 10:21-0400 Body weight 63.5 kg Raulito Dang MD Work Phone: [facility] 11-29-2024 10:21-0400 Diastolic blood pressure 72 mm[Hg] Raulito Dang MD Work Phone: [facility] 11-29-2024 10:21-0400 Heart rate 70 /min Raulito Dang MD Work Phone: [facility] 11-29-2024 10:21-0400 SaO2% (BldA) [Mass fraction] 98 % Raulito Dang MD Work Phone: [facility] 11-29-2024 10:21-0400 Systolic blood pressure 128 mm[Hg] Raulito Dang MD Work Phone: [facility] 11-05-2024 14:15-0400 Body height 162.6 cm Bryson Rodriguez MD Work Phone: [facility] 11-05-2024 14:15-0400 Body mass index (BMI) [Ratio] 23.69 kg/m2 Bryson Rodriguez MD Work Phone: [facility] 11-05-2024 14:15-0400 Body weight 62.6 kg Bryson Rodriguez MD Work Phone: [facility] 11-05-2024 14:15-0400 Diastolic blood pressure 64 mm[Hg] Bryson Rodriguez MD Work Phone: [facility] 11-05-2024 14:15-0400 Heart rate 81 /min Bryson Rodriguez MD Work Phone: [facility] 11-05-2024 14:15-0400 SaO2% (BldA) [Mass fraction] 98 % Bryson Rodriguez MD Work Phone: [facility] 11-05-2024 14:15-0400 Systolic blood pressure 98 mm[Hg] Bryson Rodriguez MD Work Phone: [facility] 11-01-2024 08:53-0400 Body height 164.5 cm Raulito Dang MD Work Phone: [facility] 11-01-2024 08:53-0400 Body mass index (BMI) [Ratio] 25.13 kg/m2 Raulito Dang MD Work Phone: [facility] 11-01-2024 08:53-0400 Body temperature 98.01 [degF] Raulito Dang MD Work Phone: [facility] 11-01-2024 08:53-0400 Body weight 68 kg Raulito Dang MD Work Phone: [facility] 11-01-2024 08:53-0400 Diastolic blood pressure 64 mm[Hg] Raulito Dang MD Work Phone: [facility] 11-01-2024 08:53-0400 Heart rate 78 /min Raulito Dang MD Work Phone: [facility] 11-01-2024 08:53-0400 Respiratory rate 18 /min Raulito Dang MD Work Phone: [facility] 11-01-2024 08:53-0400 SaO2% (BldA) [Mass fraction] 97 % Raulito Dang MD Work Phone: [facility] 11-01-2024 08:53-0400 Systolic blood pressure 126 mm[Hg] Raulito Dang MD Work Phone: [facility] 09-13-2024 09:35-0400 Body height 162.6 cm Ruby Robledo REPORTS ANALYSIS MANAGER Work Phone: [facility] 09-13-2024 09:35-0400 Body mass index (BMI) [Ratio] 24.13 kg/m2 Ruby Robledo REPORTS ANALYSIS MANAGER Work Phone: [facility] 09-13-2024 09:35-0400 Body weight 63.78 kg Ruby Robledo REPORTS ANALYSIS MANAGER Work Phone: [facility] 09-13-2024 09:35-0400 Diastolic blood pressure 72 mm[Hg] Ruby Robledo REPORTS ANALYSIS MANAGER Work Phone: [facility] 09-13-2024 09:35-0400 Heart rate 69 /min Ruby Robledo REPORTS ANALYSIS MANAGER Work Phone: [facility] 09-13-2024 09:35-0400 Respiratory rate 16 /min Ruby Robledo REPORTS ANALYSIS MANAGER Work Phone: [facility] 09-13-2024 09:35-0400 SaO2% (BldA) [Mass fraction] 95 % Ruby Robledo REPORTS ANALYSIS MANAGER Work Phone: [facility] 09-13-2024 09:35-0400 Systolic blood pressure 118 mm[Hg] Ruby Robledo REPORTS ANALYSIS MANAGER Work Phone: [facility] 07-26-2024 14:12-0500 Body height 162.6 cm Bryson Rodriguez MD Work Phone: [facility] 07-26-2024 14:12-0500 Body mass index (BMI) [Ratio] 24.37 kg/m2 Bryson Rodriguez MD Work Phone: [facility] 07-26-2024 14:12-0500 Body weight 64.41 kg Bryson Rodriguez MD Work Phone: [facility] 07-26-2024 14:12-0500 Diastolic blood pressure 68 mm[Hg] Bryson Rodriguez MD Work Phone: [facility] 07-26-2024 14:12-0500 Heart rate 82 /min Bryson Rodriguez MD Work Phone: [facility] 07-26-2024 14:12-0500 SaO2% (BldA) [Mass fraction] 100 % Bryson Rodriguez MD Work Phone: [facility] 07-26-2024 14:12-0500 Systolic blood pressure 122 mm[Hg] Bryson Rodriguez MD Work Phone: [facility] 06-28-2024 13:46-0500 Body height 162.56 cm Serene Hemmer REPORTS ANALYSIS MANAGER-C Work Phone: [facility] 06-28-2024 13:46-0500 Body mass index (BMI) [Ratio] 24 kg/m2 Serene Hemmer REPORTS ANALYSIS MANAGER-C Work Phone: [facility] 06-28-2024 13:46-0500 Body weight 63.5 kg Serene Hemmer REPORTS ANALYSIS MANAGER-C Work Phone: [facility] 05-01-2024 13:35-0500 Diastolic blood pressure 78 mm[Hg] Serene Hemmer REPORTS ANALYSIS MANAGER-C Work Phone: [facility] 05-01-2024 13:35-0500 Heart rate 89 /min Serene Hemmer REPORTS ANALYSIS MANAGER-C Work Phone: [facility] 05-01-2024 13:35-0500 Respiratory rate 16 /min Serene Hemmer REPORTS ANALYSIS MANAGER-C Work Phone: [facility] 05-01-2024 13:35-0500 SaO2% (BldA) [Mass fraction] 97 % Serene Hemmer REPORTS ANALYSIS MANAGER-C Work Phone: [facility] 05-01-2024 13:35-0500 Systolic blood pressure 118 mm[Hg] Serene Hemmer REPORTS ANALYSIS MANAGER-C Work Phone: [facility] 05-01-2024 12:03-0500 Body height 162.56 cm Serene Hemmer REPORTS ANALYSIS MANAGER-C Work Phone: [facility] 05-01-2024 12:03-0500 Body temperature 98.1 [degF] Serene Hemmer REPORTS ANALYSIS MANAGER-C Work Phone: [facility] 05-01-2024 12:03-0500 Body weight 62.09 kg Serene Hemmer REPORTS ANALYSIS MANAGER-C Work Phone: [facility] 03-22-2024 13:21-0400 Body height 162.56 cm REPORTS ANALYSIS MANAGER-C Serene Hemmer Work Phone: [facility] 03-22-2024 13:21-0400 Body mass index (BMI) [Ratio] 24.2 kg/m2 REPORTS ANALYSIS MANAGER-C Serene Hemmer Work Phone: [facility] 03-22-2024 13:210400 Body weight 63.95 kg REPORTS ANALYSIS MANAGER-C Serene Hemmer Work Phone: [facility] 03-22-2024 13:21-0400 Diastolic blood pressure 70 mm[Hg] REPORTS ANALYSIS MANAGER-C Serene Hemmer Work Phone: [facility] 03-22-2024 13:21-0400 Heart rate 93 /min REPORTS ANALYSIS MANAGER-C Serene Hemmer Work Phone: [facility] 03-22-2024 13:21-0400 Systolic blood pressure 131 mm[Hg] REPORTS ANALYSIS MANAGER-C Serene Hemmer Work Phone: [facility] 03-01-2024 14:09-0400 Diastolic blood pressure 67 mm[Hg] REPORTS ANALYSIS MANAGER-C Serene Hemmer Work Phone: [facility] 03-01-2024 14:09-0400 Heart rate 96 /min REPORTS ANALYSIS MANAGER-C Serene Hemmer Work Phone: [facility] 03-01-2024 14:09-0400 Respiratory rate 16 /min REPORTS ANALYSIS MANAGER-C Serene Hemmer Work Phone: [facility] 03-01-2024 14:09-0400 SaO2% (BldA) [Mass fraction] 97 % REPORTS ANALYSIS MANAGER-C Serene Hemmer Work Phone: [facility] 03-01-2024 14:09-0400 Systolic blood pressure 105 mm[Hg] REPORTS ANALYSIS MANAGER-C Serene Hemmer Work Phone: [facility] 03-01-2024 11:05-0400 Body height 162.56 cm REPORTS ANALYSIS MANAGER-C Serene Hemmer Work Phone: [facility] 03-01-2024 11:05-0400 Body weight 77.56 kg REPORTS ANALYSIS MANAGER-C Serene Hemmer Work Phone: [facility] 02-23-2024 13:17-0400 Body height 162.56 cm REPORTS ANALYSIS MANAGER-C Serene Hemmer Work Phone: [facility] 02-15-2024 11:06-0400 Body height 162.6 cm Serene Hemmer PA Work Phone: [facility] 02-15-2024 11:06-0400 Body mass index (BMI) [Ratio] 29.46 kg/m2 Serene Hemmer PA Work Phone: [facility] 02-15-2024 11:06-0400 Body weight 77.84 kg Serene Hemmer PA Work Phone: [facility] 02-15-2024 11:06-0400 Diastolic blood pressure 84 mm[Hg] Serene Hemmer PA Work Phone: [facility] 02-15-2024 11:06-0400 Heart rate 97 /min Serene Hemmer PA Work Phone: [facility] 02-15-2024 11:06-0400 Respiratory rate 16 /min Serene Hemmer PA Work Phone: [facility] 02-15-2024 11:06-0400 SaO2% (BldA) [Mass fraction] 95 % Serene Hemmer PA Work Phone: [facility] 02-15-2024 11:06-0400 Systolic blood pressure 132 mm[Hg] Serene Hemmer PA Work Phone: [facility] 02-08-2024 10:36-0400 Body height 162.6 cm Serene Hemmer PA Work Phone: [facility] 02-08-2024 10:36-0400 Body mass index (BMI) [Ratio] 28.91 kg/m2 Serene Hemmer PA Work Phone: [facility] 02-08-2024 10:36-0400 Body weight 76.39 kg Serene Hemmer PA Work Phone: [facility] 02-08-2024 10:36-0400 Diastolic blood pressure 82 mm[Hg] Serene Hemmer PA Work Phone: [facility] 02-08-2024 10:36-0400 Heart rate 107 /min Serene Hemmer PA Work Phone: [facility] 02-08-2024 10:36-0400 Respiratory rate 16 /min Serene Hemmer PA Work Phone: [facility] 02-08-2024 10:36-0400 SaO2% (BldA) [Mass fraction] 97 % Serene Hemmer PA Work Phone: [facility] 02-08-2024 10:36-0400 Systolic blood pressure 124 mm[Hg] Serene Hemmer PA Work Phone: [facility] Healthcare Encounters Encounter Date Encounter Type Care Provider Facility Start: 02-26-2025 End: 02-26-2025 Refill Raulito Dang MD Work Phone: [facility] Start: 02-07-2025 End: 02-07-2025 Office outpatient visit 15 minutes [facility] D[facility] MD [facility] [place] Comment on above: Critical ischemia of foot ([facility]-HCC) (Primary Dx); 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 Start: 01-30-2025 End: 01-30-2025 Telephone encounter [facility] Start: 01-28-2025 End: 01-29-2025 Refill Raulito Dang MD Work Phone: [facility] Start: 01-03-2025 End: 01-03-2025 Postop follow up visit related to original px Raulito Dang MD Work Phone: [facility] [place] Comment on above: 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) (Primary Dx) Start: 01-03-2025 End: 01-03-2025 ambulatory [facility] Start: 12-30-2024 End: 12-31-2024 Refill Raulito Dang MD [facility] Phone[facility] Start: 12-13-2024 End: 12-14-2024 Evaluation and management of inpatient Raulito Dang MD Work Phone: [facility] ICU Start: 12-10-2024 End: 12-10-2024 [facility] Start: 12-10-2024 End: 12-10-2024 Patient encounter procedure [facility] Provider 3 [facility] Comment on above: 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) (Primary Dx) Start: 12-05-2024 End: 12-05-2024 ambulatory GENE ONTIVEROS [facility] Start: 12-04-2024 End: 12-04-2024 Office outpatient new 60 minutes Gene Ontiveros MD [facility] Comment on above: Preop cardiovascular exam (Primary Dx); Primary hypertension Start: 12-04-2024 End: 12-04-2024 Patient encounter status Gene Ontiveros MD Work Phone: [facility] Start: 12-04-2024 Encounter for preprocedural cardiovascular examination [facility] Start: 12-04-2024 End: 12-04-2024 ambulatory GENE Childers [facility] Start: 11-29-2024 End: 11-29-2024 Office outpatient visit 25 minutes Raulito Dang MD Work Phone: [facility] Comment on above: 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) (Primary Dx) Start: 11-29-2024 End: 11-29-2024 Refill Raulito Dang MD Work Phone: [facility] Start: 11-15-2024 End: 11-15-2024 ambulatory RAULITO DANG [facility] Start: 11-05-2024 End: 11-05-2024 Periodic preventive med est patient 40-64yrs Bryson Rodriguez MD Work Phone: [facility] Comment on above: Epistaxis, recurrent (Primary Dx); Abnormal glucose tolerance test; Benign essential hypertension (CMS/HCC); Thyroid disorder screening; Hypercholesterolemia (CMS/HCC); Hypertriglyceridemia (CMS/HCC); Annual physical exam; Impaired glucose tolerance; Alcoholic cirrhosis of liver with ascites (CMS/HCC); Pain in both lower extremities Start: 11-05-2024 End: 11-05-2024 Patient encounter procedure Bryson Rodriguez MD Work Phone: [facility] Start: 11-05-2024 End: 11-05-2024 ambulatory BRYSON RODRIGUEZ Not Available Start: 11-02-2024 End: 11-02-2024 Telephone encounter Raulito Dang MD Work Phone: [facility] Start: 11-01-2024 End: 11-01-2024 Office outpatient new 45 minutes Raulito Dang MD Work Phone: [facility] Comment on above: 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) (Primary Dx) Start: 11-01-2024 End: 11-01-2024 ambulatory [facility] Start: 10-22-2024 End: 10-25-2024 Telephone encounter Bryson Rodriguez MD Work Phone: [facility] Start: 10-15-2024 End: 10-15-2024 Bamboo flowsheet Brian Nesbitt REPORTS ANALYSIS MANAGER Work Phone: [facility] Start: 10-15-2024 End: 10-15-2024 Bamboo flowsheet Brian Nesbitt REPORTS ANALYSIS MANAGER Work Phone: [facility] Start: 10-15-2024 End: 10-15-2024 ambulatory BRIAN NESBITT Not Available Start: 10-15-2024 End: 10-15-2024 Postop follow up visit related to original px Brian Nesbitt REPORTS ANALYSIS MANAGER Work Phone: [facility] Comment on above: Right wrist pain; Closed fracture of distal end of right radius with routine healing, unspecified fracture morphology, subsequent encounter Start: 09-17-2024 End: 09-17-2024 Bamboo flowsdoug Nesbitt REPORTS ANALYSIS MANAGER Work Phone: [facility] Start: 09-17-2024 End: 09-17-2024 Bamboo flowsheet Brian Nesbitt REPORTS ANALYSIS MANAGER Work Phone: [facility] Start: 09-17-2024 End: 09-17-2024 Office outpatient new 30 minutes Brian Nesbitt REPORTS ANALYSIS MANAGER Work Phone: [facility] Comment on above: Closed fracture of d istal end of right radius, unspecified fracture morphology, initial encounter (Primary Dx); Right wrist pain Start: 09-17-2024 End: 09-17-2024 ambulatory BRIAN NESBITT Not Available Start: 09-13-2024 End: 09-13-2024 Office outpatient visit 25 minutes Ruby Robledo REPORTS ANALYSIS MANAGER Work Phone: [facility] Comment on above: Contusion of right w rist, initial encounter (Primary Dx); Right wrist pain Start: 09-13-2024 End: 09-13-2024 ambulatory RUBY ROBLEDO Not Available Start: 07-26-2024 End: 07-26-2024 ambulatory BRYSON RODRIGUEZ Not Available Start: 07-26-2024 End: 07-26-2024 Office outpatient visit 25 minutes Bryson Rodriguez MD Work Phone: [facility] Comment on above: Blister (nonthermal) , right foot, sequela (Primary Dx); Cellulitis and abscess of foot Start: 06-28-2024 End: 06-28-2024 ambulatory Serene Hemmer REPORTS ANALYSIS MANAGER-C Work Phone: [facility] Work Phone: Start: 06-28-2024 End: 06-28-2024 Patient encounter procedure Serene Hemmer REPORTS ANALYSIS MANAGER-C Work Phone: [facility] [place] Work Phone: Start: 05-01-2024 Non-patient / Non-visit Serene Hemmer REPORTS ANALYSIS MANAGER-C Work Phone: [facility] Work Phone: Start: 05-01-2024 End: 05-01-2024 Admission to same day surgery center Serene Hemmer REPORTS ANALYSIS MANAGER-C Work Phone: [facility] Work Phone: Start: 05-01-2024 End: 05-01-2024 ambulatory Serene Hemmer REPORTS ANALYSIS MANAGER-C Work Phone: [facility] Work Phone: Start: 04-02-2024 End: 04-02-2024 Patient encounter procedure REPORTS ANALYSIS MANAGER-C Serene Hemmer Work Phone: [facility] [place] Work Phone: Start: 04-02-2024 End: 04-02-2024 ambulatory REPORTS ANALYSIS MANAGER-C Serene Hemmer Work Phone: [facility] Work Phone: Start: 03-22-2024 End: 03-22-2024 Patient encounter procedure REPORTS ANALYSIS MANAGER-C Serene Hemmer Work Phone: [facility] Work Phone: Start: 03-08-2024 End: 03-11-2024 Telephone encounter Ruby Tesfaye Robledo REPORTS ANALYSIS MANAGER Work Phone: [facility] Start: 03-01-2024 End: 03-01-2024 Admission to same day surgery center REPORTS ANALYSIS MANAGER-C Serene Hemmer Work Phone: [facility] [place] Work Phone: Start: 03-01-2024 End: 03-01-2024 ambulatory REPORTS ANALYSIS MANAGER-C Serene Hemmer Work Phone: [facility] Work Phone: Start: 02-28-2024 End: 02-28-2024 Patient encounter procedure REPORTS ANALYSIS MANAGER-C Serene Hemmer Work Phone: [facility] Work Phone: Start: 02-28-2024 End: 02-28-2024 ambulatory REPORTS ANALYSIS MANAGER-C Serene Hemmer Work Phone: [facility] Work Phone: Start: 02-23-2024 End: 02-23-2024 Patient encounter procedure REPORTS ANALYSIS MANAGER-C Serene Hemmer Work Phone: [facility] Work Phone: Start: 02-16-2024 End: 02-16-2024 Telephone encounter Lizette Osborne MA [facility] Start: 02-15-2024 End: 02-15-2024 Bamboo flowsheet Serene ZAVALA Work Phone: [facility] Start: 02-15-2024 End: 02-15-2024 Bamboo flowsheet Serene ZAVALA Work Phone: [facility] Start: 02-15-2024 End: 02-15-2024 Office outpatient visit 15 minutes Serene Jose Nathalie PA Work Phone: [facility] Comment on above: Alcoholic cirrhosis of liver with ascites (CMS/HCC) (Primary Dx); Generalized edema; Abdominal distension Start: 02-15-2024 End: 02-15-2024 ambulatory SERENE M NATHALIE Not Available Start: 02-08-2024 End: 02-08-2024 [...] Available Start: 01-31-2024 End: 01-31-2024 ambulatory SERENE M NATHALIE Not Available Start: 12-08-2023 End: 12-08-2023 ambulatory RUBY ROBLEDO Not Available Start: 11-17-2023 End: 11-17-2023 ambulatory RUBY ROBLEDO Not Available Start: 08-02-2022 End: 08-03-[address] BRYSON RODRIGUEZ Facility: Start: 01-07-2022 End: 01-09-2022 Evaluation and management of inpatient BECK DELACRUZ Facility:[facility] Procedures Date Procedure Procedure Detail Performing Clinician Start: 01-03-2025 Follow-up visit Follow-up RAULITO DANG Start: 12-14-2024 Basic metabolic panel calcium total Raulito Dang MD Work Phone: Start: 12-14-2024 Adult depression screening assessment Raulito Dang MD Work Phone: Start: 12-14-2024 Blood count hematocrit Kin Puckett MD Work Phone: Start: 12-13-2024 Glucose quantitative blood xcpt reagent strip Raulito Dang MD Work Phone: Start: 12-13-2024 REPEATED MARCI Dang MD Work Phone: Start: 12-13-2024 BEDSIDE GLUCOSE Raulito Dang MD Work Phone: Start: 12-13-2024 Calcium ionized Raulito Dang MD Work Phone: Start: 12-13-2024 End: 12-13-2024 ENDARTERECTOMY FEMORAL Raulito Harley Work Phone: Start: 12-13-2024 End: 12-13-2024 Revsc opn/prg fem/pop w/angioplasty uni Raulito Dang MD Work Phone: Start: 12-13-2024 Antibody screen Raulito Dang MD Work Phone: Start: 12-13-2024 BEDSIDE GLUCOSE Raulito Dang MD Work Phone: Start: 12-13-2024 Antibody screen GENE ONTIVEROS Comment on above: Performed By: #### TSC #### [facility] ([facility]) [address] [place] [address] VIR Start: 12-13-2024 Blood typing serologic abo Jaleel randolph MD Work Phone: Start: 12-13-2024 REPEATED MARCI Reinoso MD Work Phone: Start: 12-10-2024 Basic metabolic panel calcium total Raulito Dang MD Work Phone: Start: 12-04-2024 Ecg routine ecg w/least 12 lds w/i&r Gene Ontiveros MD Work Phone: Start: 11-05-2024 Hemoglobin glycosylated a1c Bryson Rodriguez MD Work Phone: Start: 10-15-2024 Radex wrist 2 views Brian Nesbitt REPORTS ANALYSIS MANAGER Work Phone: Start: 09-17-2024 Radex wrist 2 views Brian Nesbitt REPORTS ANALYSIS MANAGER Work Phone: Start: 05-01-2024 Esophagogastroduodenoscopy Serene Zelaya REPORTS ANALYSIS MANAGER-C Work Phone: Start: 04-02-2024 Ultrasonography of liver REPORTS ANALYSIS MANAGER-C Serene Rivera er Work Phone: Start: 03-01-2024 Ultrasonography guided puncture and aspiration of abdomen REPORTS ANALYSIS MANAGER-C Serene Zelaya Work Phone: Start: 02-28-2024 Esophagogastroduodenoscopy REPORTS ANALYSIS MANAGER-C Serene Juarez mmer Work Phone: Start: 02-28-2024 Ultrasound elastography of liver REPORTS ANALYSIS MANAGER-C Kraig Zelaya Work Phone: Start: 12-28-2023 Mammography Serene Solaresmartín PA Work Phone: Start: 01-07-2022 Antibody screen BECK EBRAHEIM Comment on above: Performed By: #### [id number] #### [address] Start: 05-22-2020 Colonoscopy Serene ZAVALA Work Phone: Start: 05-19-2020 Colonoscopy Ruby Robledo REPORTS ANALYSIS MANAGER Work Phone: Start: 05-04-2017 Laboratory test result abnormal Abnormal laboratory test result Serene Beckmartín PA Work Phone: Start: 03-23-2016 Microscopic observation [Identifier] in Cervix by Cyto stain Raulito Dang MD Work Phone: Plan of Treatment Date Care Activity Detail Author Start: 05-22-2030 Screening for malignant neoplasm of colon [facility] Start: 05-19-2030 [facility]ening [facility] [facility] Start: 02-07-2026 Adult BMI Screening Adult BMI Screening [facility] Start: 01-03-2026 Adult BMI Screening Adult BMI Screening [facility] Start: 01-03-2026 Tobacco Screening Tobacco Screening [facility] Start: 12-14-2025 Adult BMI Screening Adult BMI Screening [facility] Start: 12-14-2025 Depression Screening Depression Screening [facility] Start: 12-13-2025 Tobacco Screening Tobacco Screening [facility] Start: 12-10-2025 Adult BMI Screening Adult BMI Screening [facility] Start: 12-10-2025 Tobacco Screening Tobacco Screening [facility] Start: 12-04-2025 Adult BMI Screening Adult BMI Screening [facility] Start: 12-04-2025 Tobacco Screening Tobacco Screening [facility] Start: 11-29-2025 Adult BMI Screening Adult BMI Screening [facility] Start: 11-29-2025 Tobacco Screening Tobacco Screening [facility] Start: 11-01-2025 Adult BMI Screening Adult BMI Screening [facility] Start: 08-22-2025 End: 08-22-2025 Patient encounter procedure 08/22/2025 8:40 AM EST Office Visit [facility] [address] [place] [address] Raulito Dang MD [address], [address] [address] [facility] Start: 08-12-2025 End: 08-12-2025 Patient encounter procedure 08/12/2025 10:00 AM EST Appointment [facility] [address] [place] [address] Raulito Dang MD [address], [address] [address] [facility] Start: 08-10-2025 End: 02-07-2026 US.doppler Extremity arteries - bilateral for physiologic artery study Vas art doppler lwr bilat mult lev/PVR Vascular Ultrasound Routine Critical ischemia of foot (CMS-HCC) 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) Expected: 08/10/2025 (Approximate), Expires: 02/07/2026 [facility] Work Phone: Comment on above: Expected: 08/10/2025 (Approximate), Expi res: 02/07/2026 Start: 02-18-2025 Influenza vaccination Influenza Vaccine [facility] Start: 02-07-2025 End: 02-07-2025 Patient encounter procedure 02/07/2025 8:50 AM EDT Office Visit [facility] [address] [place] [address] Raulito Dang MD [address], [address] [place] [address] [facility] Start: 02-05-2025 Hemoglobin A1c measurement Diabetes: Hemoglobin A1C [facility] Start: 01-31-2025 End: 01-31-2025 Patient encounter procedure [facility] Start: 01-03-2025 End: 01-03-2026 US.doppler Extremity arteries - bilateral for physiologic artery study Vas art doppler lwr bilat mult lev/PVR Vascular Ultrasound Routine 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 ([facility]) Expected: 01/03/2025, Expires: 01/03/2026 [facility] Work Phone: Comment on above: Expected: 01/03/2025, Expires: Start: 01-03-2025 End: 01-03-2025 Patient encounter procedure 01/03/2025 9:20 AM EDT Office Visit [facility] [address] [place] [address] Raulito Dang MD [address], [address] [place] [address] [facility] Start: 12-27-2024 Screening for malignant neoplasm of breast Mammogram [facility] Start: 12-13-2024 End: 12-13-2024 Admission to same day surgery center 12/13/2024 3:15 PM EDT - 12/13/2024 6:15 PM EDT Surgery [facility] - Surgery [address] [place] [phone] Raulito Dang MD [address], [address] [place] [address] ENDARTERECTOMY FEMORAL [facility] Surgery Comment on above: ENDARTERECTOMY FEMORAL Start: 12-13-2024 End: 12-13-2024 ENDARTERECTOMY FEMORAL ENDARTERECTOMY FEMORAL 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 ([facility]) 12/13/2024 3:15 PM EDT [facility] Start: 12-13-2024 Subsequent hospital visit by physician 12/13/2024 3:15 PM EDT Hospital Encounter [facility] [address] [place] [phone] Raulito Dang MD [address], [facility] [address] [place] [address] [facility] Start: 12-06-2024 End: 12-06-2024 Patient encounter procedure 12/06/2024 12:15 PM EDT Procedure visit [facility] [address] [address] [facility] Start: 12-05-2024 End: 12-05-2024 Patient encounter procedure 12/05/2024 11:30 AM EDT Appointment [facility] [address] [place] [phone] [facility] Start: 12-05-2024 End: 12-05-2024 Patient encounter procedure [facility] Start: 12-05-2024 End: 12-05-2024 Patient encounter procedure [facility] Start: 12-04-2024 End: 12-04-2025 Echo complete W/O contrast Echo complete W/O contrast Echocardiography STAT Preop cardiovascular exam Expected: 12/04/2024, Expires: 12/04/2025 [facility] Work Phone: Comment on above: Expected: 12/04/2024, Expires: Start: 12-04-2024 End: 12-04-2025 NM Heart Perfusion W stress and W radionuclide IV Nuc stress [facility] STAT Preop cardiovascular exam Expected: 12/04/2024, Expires: 12/04/2025 [facility] Comment on above: Expected: 12/04/2024, Expires: Start: 12-04-2024 End: 12-04-2024 Patient encounter procedure 12/04/2024 11:45 AM EDT Office Visit [facility] [address] [facility] [address] [place] [phone] Gene Ontiveros MD [address] [facility], [address] [place] [address] [facility] Start: 11-16-2024 Urine screening for protein Diabetes: Urine Protein Screening [facility] Start: 11-15-2024 End: 11-15-2024 Patient encounter procedure [facility] Start: 11-08-2024 End: 11-08-2024 Patient encounter procedure 11/08/2024 10:00 AM EDT Office Visit [facility] [address] [place] [phone] Brian Nesbitt, AINSLEY [address] [place] [address] [facility] Start: 11-05-2024 End: 11-05-2024 Patient encounter procedure 11/05/2024 2:30 PM EDT Office Visit [facility] [address] [facility] [address] [place] [phone] Bryson Rodriguez MD [address] [facility] [address] [place] [address] [facility] Start: 11-05-2024 End: 11-05-2025 CBC W Auto Differential panel - Blood CBC and differential Lab Routine Abnormal glucose tolerance test Benign essential hypertension (CMS/HCC) Thyroid disorder screening Hypercholesterolemia (CMS/HCC) Hypertriglyceridemia (CMS/HCC) Annual physical exam Expected: 11/05/2024 (Approximate), Expires: 11/05/2025 [facility] Work Phone: Comment on above: Expected: 11/05/2024 (Approximate), Expi res: 11/05/2025 Start: 11-05-2024 End: 11-05-2025 Comprehensive metabolic 2000 panel - Serum or Plasma Comprehensive metabolic panel Lab Routine Abnormal glucose tolerance test Benign essential hypertension (CMS/HCC) Thyroid disorder screening Hypercholesterolemia (CMS/HCC) Hypertriglyceridemia (CMS/HCC) Annual physical exam Expected: 11/05/2024 (Approximate), Expires: 11/05/2025 [facility] Comment on above: Expected: 11/05/2024 (Approximate), Expi res: 11/05/2025 Start: 11-05-2024 End: 11-05-2025 Lipid 1996 panel - Serum or Plasma Lipid panel Lab Routine Hypercholesterolemia (CMS/HCC) Hypertriglyceridemia (CMS/HCC) Annual physical exam Expected: 11/05/2024 (Approximate), Expires: 11/05/2025 [facility] Comment on above: Expected: 11/05/2024 (Approximate), Expi res: 11/05/2025 Start: 11-05-2024 End: 11-05-2025 Microalbumin/Creatinin e panel in random Urine Microalbumin / creatinine urine ratio Lab Routine Abnormal glucose tolerance test Annual physical exam Expected: 11/05/2024 (Approximate), Expires: 11/05/2025 [facility] Comment on above: Expected: 11/05/2024 (Approximate), Expi res: 11/05/2025 Start: 11-01-2024 End: 11-01-2025 CTA Abdominal Aorta and Bilateral Runoff Vessels W contrast IV CT angiogram abdominal aorta with runoff Imaging Routine 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 ([facility]) Expected: 11/01/2024, Expires: 11/01/2025 [facility] Work Phone: Comment on above: Expected: 11/01/2024, Expires: Start: 11-01-2024 End: 11-01-2025 US.doppler Extremity arteries - bilateral for physiologic artery study Vas art doppler lwr bilat mult lev/PVR Vascular Ultrasound Routine 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 ([facility]) Expected: 11/01/2024, Expires: 11/01/2025 [facility] Comment on above: Expected: 11/01/2024, Expires: Start: 10-15-2024 End: 10-15-2024 Patient encounter procedure [facility] Comment on above: Arrived Start: 10-05-2024 Glaucoma screening Diabetes: Retinopathy Screening [facility] Start: 09-17-2024 End: 09-17-2024 Patient encounter procedure 09/17/2024 1:30 PM EDT Office Visit [facility] [address] [place] [address] Brian Nesbitt, REPORTS ANALYSIS MANAGER [address] [place] [address] Arrived [facility] Comment on above: Arrived Start: 09-13-2024 End: 09-13-2025 XR Wrist - right 3 Views XR wrist 3+ views right Imaging STAT Right wrist pain Expected: 09/13/2024 (Approximate), Expires: 09/13/2025 [facility] Work Phone: Comment on above: Expected: 09/13/2024 (Approximate), Expi res: 09/13/2025 Start: 06-28-2024 Fuvto-[id number] mor marker [Mass/volume] in Serum or Plasma [facility] Start: 05-01-2024 End: 05-01-2024 [facility] Start: 03-01-2024 [facility] Start: 02-28-2024 [facility] Start: 02-28-2024 Actin smooth muscle IgG Ab [Units/volume] in Serum [facility] Start: 02-28-2024 Cefuroxime free [Mass/volume] in Serum or Plasma [facility] Start: 02-28-2024 Ceruloplasmin [Mass/volume] in Serum or Plasma [facility] Start: 02-28-2024 Hepatitis B core antibody measurement [facility] Start: 02-28-2024 Hepatitis B virus surface Ab [Presence] in Serum [facility] Start: 02-28-2024 [facility] Start: 02-19-2024 Influenza vaccination Influenza Vaccine (#1) [facility] Start: 02-17-2024 Hemoglobin A1c measurement Diabetes: Hemoglobin A1C [facility] Start: 02-15-2024 End: 02-07-2025 Comprehensive metabolic 2000 panel - Serum or Plasma Comprehensive metabolic panel Lab Routine Generalized edema Elevated liver enzymes Expected: 02/15/2024 (Approximate), Expires: 02/07/2025 [facility] Work Phone: Comment on above: Expected: 02/15/2024 (Approximate), Expi res: 02/07/2025 Start: 02-15-2024 End: 02-15-2024 Patient encounter procedure 02/15/2024 11:00 AM EDT Office Visit [facility] [address] [facility] [address] [place] [address] Serene Zelaya PA [address] [facility] [address] [place] [address] Arrived [facility] Comment on above: Arrived Start: 02-08-2024 End: 02-08-2024 Patient encounter procedure 02/08/2024 10:30 AM EDT Office Visit [facility] [address] [facility] [address] [place] [address] Serene Zelaya PA [address] [facility] [address] [place] [address] Arrived [facility] Comment on above: Arrived Start: 03-23-2019 Screening for malignant neoplasm of cervix Pap Smear [facility] Start: 11-29-1993 Screening for malignant neoplasm of cervix [facility] Start: 11-29-1984 Screening for malignant neoplasm of cervix Pap Smear [facility] Start: 11-29-1982 DTaP,Tdap and Td Vaccines (1 - Tdap) DTaP,Tdap and Td Vaccines (1 - Tdap) [facility] Start: 11-29-1981 Adult BMI Follow Up Plan Adult BMI Follow Up Plan [facility] Start: 1975 Depression Screening Depression Screening [facility] Start: 1975 Tobacco Screening Tobacco Screening [facility] Start: 1963 Screening for malignant neoplasm of colon [facility] Start: 1963 Statin Use: Cardiovascular Statin Use: Cardiovascular [facility] End: 12-13-2024 ABO Rh Repeat ABO Rh Repeat Blood Bank Routine Once for 1 Occurrences starting 12/13/2024 until 12/13/2024 [facility] Work Phone: Comment on above: Once for 1 Occurrences starting 12/14/19 until 12/13/2024 Alpha 1 antitrypsin [Mass/volume] in Serum or Plasma [facility] Alpha 1 antitrypsin phenotyping [Identifier] in Serum or Plasma by Immunofixation [facility] End: 11-01-2025 Creatinine includes GFR, serum Creatinine includes GFR, serum Lab Routine 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 ([facility]) 1 Occurrences starting 11/01/2024 until 11/01/2025 [facility] Comment on above: 1 Occurrences starting 11/01/2024 until 11/01/2025 Hepatitis B virus surface Ag [Presence] in Serum or Plasma by Immunoassay [facility] Hepatitis C virus Ig G Ab [Presence] in Serum or Plasma by Immunoassay [facility] Patient Education [facility] Work Phone: POCT EKG POCT EKG ECG Rou john Preop cardiovascular exam Primary hypertension 12/04/2024 11:43 AM EDT [facility] Immunizations Immunization Date Immunization Notes Care Provider Fa cility 08-03-2024 influenza, injectabl e, madin balbir canine kidney, preservative free Bryson Rodriguez MD Work Phone: [facility] 08-03-2024 influenza virus vaccine, unspecified formulation Raulito Dang MD Work Phone: [facility] 08-03-2023 influenza, seasonal, injectable, preservative free Serene ZAVALA Work Phone: [facility] 08-03-2023 influenza virus vaccine, unspecified formulation Serene Hemmer PA Work Phone: [facility] 08-06-2022 zoster vaccine recombinant Serene Hemmer PA Work Phone: [facility] 05-05-2022 Influenza, injectabl e, Madin Villard Canine Kidney, preservative free, quadrivalent Serene Hemmer PA Work Phone: [facility] 05-05-2022 zoster vaccine recombinant Serene Hemmer PA Work Phone: [facility] 06-10-2021 influenza, seasonal, injectable Serene Hemmer PA Work Phone: [facility] 04-03-2020 influenza, injectabl e, quadrivalent, preservative free Serene Hemmer PA Work Phone: [facility] 04-19-2019 influenza, injectabl e, madin balbir canine kidney, preservative free Serene Hemmer PA Work Phone: [facility] 05-05-2018 influenza, injectabl e, quadrivalent, preservative free Serene Hemmer PA Work Phone: [facility] 04-14-2017 seasonal influenza, intradermal, preservative free Serene Hemmer PA Work Phone: [facility] 01-19-2016 zoster vaccine, live Serene H emmer PA Work Phone: [facility] 04-20-2015 influenza, seasonal, injectable, preservative free Serene Hemmer PA Work Phone: [facility] 07-06-2013 influenza, seasonal, injectable Serene Hemmer PA Work Phone: [facility] Payers Date Payer Category Payer [facility] er [id number] 2024 [employer] Jeremiah Pearson [facility] - HMO ANTHEM Member Subscriber Plan / Payer (Effective 2024-Present) Name: Bernadine Bhakta Relation to Subscriber: Self Name: Bernadine Bhakta Payer ID: [id number] (NAIC) Type: Not on file Address: [address] [place] [id number] 2024 Unknown [id number] 2024 Self-pay 2022 Private Health Insurance [id number] [id number] 2022 Unknown [id number] 2012 Unknown [id number] 1963 Unknown [id number] 08.05.840.1.891803.3.579. 2.647 1963 Unknown [id number] 2.16.840.1.204765.3.579. 2.593 1963 Unknown [id number] 2.16840.1.210467.3.579. 2.9 1963 Unknown [id number] 2.16840.1.576482.3.579. 2.1259 1963 Unknown [id number] .16840.1.215145.3.579. 2.1259 1963 Unknown [id number] 2.16.840.1.785074.3.579. 2.1258 1963 Unknown [id number] 2.16.840.1.446314.3.579. 2.1258 1963 Unknown [id number] 2.16.840.1.733560.3.579. 2.1258 1963 Unknown [id number] 2.16.840.1.238313.3.579. 2.1258 1963 Unknown [id number] 2.16.840.1.108385.3.579. 2.1258 1963 Unknown [id number] 2.16.840.1.467399.3.579. 2.1258 1963 Unknown [id number] 2.16.840.1.580225.3.579. 2.1258 1963 Unknown [id number] 2.16840.1.457914.3.579. 2.1258 1963 Unknown [id number] 2.16.840.1.286654.3.579. 2.1258 1963 Unknown [id number] 2.16.840.1.085487.3.579. 2.1258 1963 Unknown [id number] 2.16.840.1.389806.3.579. 2.1285 1963 Unknown [id number] 2.16.840.1.045828.3.579. 2.1285 1963 Unknown [id number] 2.16.840.1.987457.3.579. 2.1285 1963 Unknown [id number] 2.16.840.1.837191.3.579. 2.1285 1963 Unknown [id number] 2.16.840.1.922043.3.579. 2.1285 1963 Unknown [id number] 2.16.840.1.220006.3.579. 2.1285 1963 Unknown [id number] 2.16840.1.112165.3.579. 2.1285 1963 Unknown [id number] 2.840.1.473160.3.579. 2.1285 1963 Unknown [id number] 2.16840.1.522207.3.579. 2.1285 1963 Unknown [id number] 2.840.1.827191.3.579. 2.1285 1963 Unknown [id number] 2.840.1.843981.3.579. 2.1285 1963 Unknown [id number] 2.840.1.046884.3.579. 2.1285 1963 Unknown [id number] 2.840.1.009674.3.579. 2.1285 1963 Unknown [id number] 2.0.1.786810.3.579. 2.1285 1963 Unknown [id number] 2.840.1.139510.3.579. 2.1285 1963 Unknown [id number] 2.840.1.696750.3.579. 2.128 1959 Unknown [id number] Unknown [id number] 2.840.1.842122.3.579. 2.531 Unknown [id number] 2.840.1.895027.3.579. 2.531 Unknown [id number] 2.840.1.922971.3.579. 2.531 Unknown [id number] 2.840.1.484332.3.579. 2.531 Unknown [id number] 2.840.1.259393.3.579. 2.531 Social History Date Type Detail Facility Start: 02-23-2024 End: 12-10-2024 Tobacco smoking status UTIS Ex-smoker (finding) [facility] Start: 1965 Sex Assigned At Female F [facility] Start: 05-01-2024 End: 06-29-2024 Sex Patient sex unknown (finding) [facility] Start: 06-20-1981 End: 06-20-2017 History of tobacco use Current smoker [facility] Start: 06-20-1981 End: 06-20-2017 History of tobacco use Cigarette Smoker [facility] Start: 01-31-2024 End: 12-10-2024 Tobacco use and exposure Smokeless tobacco non-user [facility] Start: 01-31-2024 End: 01-03-2025 Alcoholic beverage intake Ex-drinker (finding) [facility] Start: 07-31-2020 End: 01-31-2024 Alcoholic beverage intake [facility] Start: 07-31-2020 End: 01-31-2024 Tobacco use panel [facility] Start: 1965 Sex assigned at Not on file N [facility] Start: 05-19-2020 End: 11-29-2024 Alcoholic beverage intake Current drinker of alcohol (finding) [facility] Childcare Unknown [facility] Start: 05-09-2020 Alcohol Comment social [facility] Start: 01-23-2015 Sex Female (finding) [facility] Has the SwitchNote, Stroho, [employer]Spring, or water wise.io threatened to shut off services in your home in past 12Mo No [facility] How often to you hav e a drink containing alcohol? Never [facility] Medical Equipment Procedure Code Equipment Code Equipment Origin al Text Equipment Identifier Dates Blood Sugar Diagnostic (Onetouch Ultra Test) strip Start: 02-23-2024 Blood Sugar Diagnostic (Onetouch Ultra Test) strip Start: 02-23-2024 Blood Sugar Diagnostic (Onetouch Ultra Test) strip Start: 02-23-2024 Blood Sugar Diagnostic (Onetouch Ultra Test) strip Start: 02-23-2024 1 strip by In Vitro route Daily [id number] Start: 11-21-2023 Blood Sugar Diagnostic (Onetouch Ultra Test) strip Start: 02-23-2024 1 each Daily [id number] Start: 08-02-2024 Patch Vsc 8x.8cm Xenosure Bvn Pricrd Tiss Strl Rpl [id number] - [id number] FDA Start: 12-13-2024 Comment on above: Description: RIGHT F EMORAL ARTERY Patch Vsc 8x.8cm Xenosure Bvn Pricrd Tiss Strl Rpl [id number] - [id number], [id number] FDA Start: 12-13-2024 Comment on above: Description: RIGHT F EMORAL ARTERY Goals Date Patient Goal Desired Activity /State Personal health goal Functional Status Date Assessment Result Facility 12-14-2024 Total score [AUDIT-C] 0 12/15/19 11:42 AM EDT Kacie Solares, RN [facility] 11-05-2024 Patient Health Quest ionnaire 2 item (PHQ-2) [Reported] [facility] Clinical Notes 02-04-2022 to 02-07-2025 Assessment & Plan Note - Raulito Dang MD - 02/07/2025 9:30 AM EDTAssessment & Plan Note - Raulito Dang MD - 02/07/2025 9:30 AM EDTMmechelle Dang MD - 02/07/2025 8:50 AM EDT Note Date & Type Note Facility 02-07-2025 Evaluation + Plan note Associated Problem(s): 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 Plan is to send her to podiatry for the management of her great toe and wound. She may need a foot procedure or different shoes. Plan is also to continue aspirin Plavix and statin and follow up in 6 months with PVR. 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 Plan is to send her to podiatry for the management of her great toe and wound. She may need a foot procedure or different shoes. Plan is also to continue aspirin Plavix and statin and follow up in 6 months with PVR. documented in this encounter [facility] 02-07-2025 History of Present illness Narrative Images from the original note were not included. To: BRYSON RODRIGUEZ MD HPI: Bernadine Bhakta is a 59 y.o. female with right lower extremity critical limb ischemia status post femoral endarterectomy and patch angioplasty. She has normal blood flow and palpable pedal pulses. She has a hallux deformity and a small scab over. She will need podiatry care or different shoes.. Review of Systems: Review of Systems Constitutional: Negative. HENT: Negative. Respiratory: Negative. Cardiovascular: Negative. Gastrointestinal: Negative. Endocrine: Negative. Genitourinary: Negative. Musculoskeletal: Negative. Skin: Negative. Neurological: Negative. Hematological: Negative. Medications: Current Outpatient Medications on File Prior to Visit Medication Sig Dispense Refill aspirin 81 mg chewable tablet Chew 1 tablet (81 mg total) and swallow in the morning. 90 tablet 4 atorvastatin (LIPITOR) 40 mg tablet TAKE 1 TABLET(40 MG) BY MOUTH IN THE MORNING 30 tablet 0 CALCIUM ORAL Take 600 mg by mouth in the morning. carvediloL (COREG) 12.5 mg tablet Take 1 tablet (12.5 mg total) by mouth in the morning and 1 tablet (12.5 mg total) in the evening. Take with meals. Indications: high blood pressure. cholecalciferol 1,000 units tablet Take 1 tablet (1,000 Units total) by mouth in the morning. clopidogreL (PLAVIX) 75 mg tablet Take 1 tablet (75 mg total) by mouth in the morning. 30 tablet 3 cyanocobalamin (vitamin B-12) 1000 MCG tablet Take 1 tablet (1,000 mcg total) by mouth in the morning. docusate sodium (COLACE) 100 mg capsule Take 1 capsule (100 mg total) by mouth in the morning and 1 capsule (100 mg total) before bedtime. Indications: constipation. folic acid (FOLVITE) 800 MCG tablet Take 0.5 tablets (400 mcg total) by mouth in the morning. furosemide (LASIX) 40 mg tablet Take 0.5 tablets (20 mg total) by mouth daily Indications: visible water retention. metFORMIN (GLUCOPHAGE) 500 mg tablet Take 1 tablet (500 mg total) by mouth in the morning and 1 tablet (500 mg total) before bedtime. omega 4-hav-nqy-fish oil 100-400-1,000 mg capsule Take 1 capsule by mouth. spironolactone (ALDACTONE) 100 mg tablet Take 0.5 tablets (50 mg total) by mouth in the morning. edema. No current facility-administered medications on file prior to visit. 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 ([facility]) Diabetes ([facility]) Fractures 09/12/2024 Wrist, tibia on the right Hyperlipidemia Hypertension Pre-diabetes on metformin Rash 12/10/2024 Wound right big toe, side of right foot Seizures ([facility]-HCC) Last one > 10 years Visual impairment Glasses Past Surgical History: Past Surgical History: Procedure Laterality Date ANGIOPLASTY CUTDOWN FEMORAL Right 12/13/2024 Performed by Raulito Dang MD at [facility] APPENDECTOMY SECTION 1989 COLONOSCOPY N/A 05/19/2020 Performed by Mehul Zuh DO at [facility] ENDARTERECTOMY ILIO-FEMORAL Right 12/13/2024 Performed by Raulito Dang MD at [facility] EXCISIONAL HEMORRHOIDECTOMY JOINT REPLACEMENT Right 2012 HIP KNEE SURGERY Right 2022 Fixed tibia contains metal LEG SURGERY Right 2022 Tibia SOFT TISSUE CYST EXCISION LEFT CHEEK TUBAL LIGATION Social and Family History: Social History Socioeconomic History Marital status: Spouse name: Not on file Number of children: Not on file Years of education: Not on file Highest education level: Not on file Occupational History Not on file Tobacco Use Smoking status: Former Current packs/day: 0.00 Average packs/day: 2.0 packs/day for 31.0 years (62.0 ttl pk-yrs) Types: Cigarettes Start date: 1981 Quit date: 2013 Years since quittin.6 Smokeless tobacco: Never Vaping Use Vaping status: Never Used Substance and Sexual Activity Alcohol use: Not Currently Drug use: No Sexual activity: Defer Other Topics Concern Caffeine Use Yes Social History Narrative Not on file Social Drivers of Health Financial Resource Strain: Not on file Food Insecurity: No Food Insecurity (02/07/2025) Hunger Screening Food Insecurity - Worry: Never True Food Insecurity - Inability: Never True Transportation Needs: No Transportation Needs (12/14/2024) PRAPARE - Transportation Lack of Transportation (Medical): No Lack of Transportation (Non-Medical): No Physical Activity: Not on file Stress: Not on file Social Connections: Not on file Interpersonal Safety: Not At Risk (12/14/2024) Humiliation, Afraid, Rape, and Kick questionnaire Fear of Current or Ex-Partner: No Emotionally Abused: No Physically Abused: No Sexually Abused: No Housing Instability: Low Risk (12/14/2024) Housing Instability Housing Instability: No Family History Problem Relation Age of Onset Aneurysm Mother Cancer Father UNKNOWN Diabetes Maternal Grandmother Anesthesia problems Neg Hx Recent Labs: Recent and relative labs were reviewed and interpreted and contributed to the assessment and plan below. Vitals: BP (!) 86/53 (BP Site: Left Arm, BP Postition: Sitting, BP CUFF SIZE: M (9-13 inches)) Ht 162.6 cm (5' 4 ) Wt 64.4 kg (142 lb) BMI 24.37 kg/m Body mass index is 24.37 kg/m . Physical Exam: Physical Exam Constitutional: Appearance: Normal appearance. HENT: Head: Normocephalic and atraumatic. Mouth/Throat: Mouth: Mucous membranes are moist. Eyes: Extraocular Movements: Extraocular movements intact. Pupils: Pupils are equal, round, and reactive to light. Cardiovascular: Rate and Rhythm: Normal rate and regular rhythm. Pulmonary: Effort: Pulmonary effort is normal. Breath sounds: Normal breath sounds. Abdominal: General: Abdomen is flat. Bowel sounds are normal. Palpations: Abdomen is soft. Musculoskeletal: General: Normal range of motion. Cervical back: Normal range of motion. Skin: General: Skin is warm and dry. Neurological: General: No focal deficit present. Mental Status: She is alert and oriented to person, place, and time. Mental status is at baseline. Psychiatric: Mood and Affect: Mood normal. Behavior: Behavior normal. Thought Content: Thought content normal. Judgment: Judgment normal. Recent testing: Recent labs and noninvasive tests have been reviewed. 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 Plan is to send her to podiatry for the management of her great toe and wound. She may need a foot procedure or different shoes. Plan is also to continue aspirin Plavix and statin and follow up in 6 months with PVR. Relevant Orders Vas art doppler lwr bilat mult lev/PVR Bernadine was seen today for tb test. 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 This note was created with the assistance of a speech recognition program. While intending to generate a timely document that accurately reflects the content of the visit, no guarantee can be provided that every grammatical or spelling mistake has been or will be identified or corrected. Thank you for your understanding. documented in this encounter [facility] 01-30-2025 Miscellaneous Notes Called patient to reschedule her doppler. She is having it done at [place] 01/31. documented in this encounter [facility] 01-30-2025 Telephone encounter Note Called patient to reschedule her doppler. She is having it done at [place] 01/31. 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 This was done for critical limb threatening ischemia. Her wound is stable. I advised her to follow up with the [facility]. We will get PVR as well. Plan is to continue aspirin Plavix and statin. She does not smoke anymore. Plan We will get PVR continue best medical therapy follow up with wound care clinic and with the us in a month. 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 ([facility]) 11/01/2024 Past Medical History: Diagnosis Date Anemia 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 Code Status: Code Status Information Code Status Not on file Summary of Hospital Course: Patient is a 59 y.o. female status post right ileo fem endarterectomy and patch angioplasty on 12/13/2024 for critical limb threatening ischemia with tissue loss. Her postoperative course was uncomplicated. The above is only intended to summarize the hospital course. Please see complete medical record for further details. Consults: None Significant Diagnostic Studies: Echo complete W/O contrast Result Date: 12/05/2024 Narrative: Left Ventricle: Left ventricle appears normal in size. There is mild concentric increased wall thickness/hypertrophy. Systolic function is normal with an ejection fraction of 55-60%. No segmental wall motion abnormalities. Normal diastolic function is present. Lateral E' is 7.72 cm/s. Medial E' is 6.96 cm/s. Aortic Valve: The aortic valve is trileaflet. The leaflets are mildly thickened. There is no regurgitation or stenosis. Mitral Valve: The leaflets are mildly thickened. There is [id number] regurgitation. There is no evidence of mitral valve stenosis. Tricuspid Valve: There is trace regurgitation. There is no evidence of tricuspid valve stenosis. RVSP estimated at <30 mmHg. Pulmonic Valve: There is trace regurgitation. There is no evidence of pulmonic valve stenosis. Nuc stress Lexiscan Result Date: 12/05/2024 Narrative: Stress Function Comments: Stress ejection fraction is 78%. Perfusion Comments: Left ventricular perfusion is normal. Based on the perfusion study data, risk of cardiovascular events is low risk. The study is normal. CT angiogram abdominal aorta with runoff Result Date: 11/20/2024 Narrative: CTA of the abdomen and pelvis and runoff of both lower extremities with 3-D reformats INDICATION: Critical limb ischemia with right lower extremity gangrene, multivessel occlusive disease. PROCEDURE: Automatic radiation exposure lowering techniques were utilized. Following the intravenous injection of 100 mL of Omnipaque 350, a CTA of the abdomen and pelvis and runoff of both lower extremities with 3-D reformats, including 3 -D Maximum intensity projection reconstructions constructed under concurrent physician supervision on a independent workstation . 3 D images obtained to improve visualization of vascular detail. All CT scans at this facility use dose modulation, iterative reconstruction, and/or weight based dosing when appropriate to reduce radiation dose to as low as reasonably achievable. FINDINGS: Comparison is CT dated 03/30/2015. There is mixed groundglass and solid nodule in the left lower lobe on axial slice #22 measuring 1.7 cm, could be infectious or neoplastic. Consider follow-up dedicated chest CT for further evaluation. Cholelithiasis. Nodular contour of the liver consistent with liver cirrhosis. Splenomegaly. Atrophic left kidney; atherosclerotic disease of the abdominal aorta and iliac arteries. There is separate origin of the common hepatic and splenic arteries from the aorta, at this level the aorta measures 2.5 cm. At the SMA the abdominal aorta measures 2.1 cm and below the renal arteries the aorta measures 1.8 cm. There is calcific atherosclerotic disease at the origin of the left renal artery causing an undetermined stenosis. Atherosclerotic disease causing mild narrowing of the common and external iliac arteries bilaterally. Right lower extremity runoff: Artifacts from right femur hardware compromise evaluation. Dense calcification in the common femoral artery obscured the lumen and causing moderate to severe stenosis, this is better evaluated with Doppler ultrasound. There is moderate to severe stenosis of the proximal SFA, and mild to moderate stenosis of the distal SFA. Patent popliteal artery with mild to moderate narrowing. Patent 3 vessel runoff, the dorsalis pedis is not opacified at the ankle level and may be significantly narrowed. There are posterior tibial artery can be followed into the foot. Left lower extremity runoff: Dense atherosclerotic plaques causing moderate stenosis of the common femoral artery, and moderate to severe stenosis at the origin of the SFA, better evaluated with Doppler. Patent SFA with moderate narrowing in the distal SFA and moderate to severe narrowing at the adductor habitus. There is mild to moderate narrowing of the popliteal artery and three-vessel runoff can be followed into the foot. IMPRESSION: 1. Left lower lobe makes nodule measuring 1.7 cm, could be benign or malignant; recommend follow-up dedicated chest CT and pulmonary consultation. 2. Cholelithiasis. 3. Liver cirrhosis and splenomegaly. 4. Atrophic left kidney with dense calcified plaque at the origin of the left renal artery obscuring the lumen. 5. Atherosclerotic disease of the abdominal aorta and iliac arteries with mild narrowing in the iliac arteries, not hemodynamically significant. 6. Dense calcified plaques in the common femoral arteries bilaterally causing moderate to severe stenosis in the common femoral arteries and at the origin of the SFA bilaterally (this is better evaluated with ultrasound). 7. Moderate narrowing of the distal SFA bilaterally. 8. Bilateral 3 vessel runoff, but no opacification of the distal right anterior tibial artery and dorsalis pedis, could be due to severe stenosis. Finalized by Frieda Aden MD on 11/20/2024 1:26 PM Vas art doppler lwr chaim mulgeronimo lev/PVR Result Date: 11/15/2024 Narrative: Right: Severely abnormal PVR waveform contour at all cuff levels. No calf waveform augmentation noted. PT IVY is 0.46; DP IVY is 0.30. TBI is 0.20. Monophasic common femoral, popliteal, PT and DP CW Doppler waveforms. Left: Moderately abnormal PVR waveform contour at all cuff levels. Minimal calf waveform augmentation noted. PT IVY is 0.57; DP IVY is 0.50. TBI is 0.34. Monophasic common femoral, popliteal, PT and DP CW Doppler waveforms. Conclusions: BILATERAL: Multilevel arterial disease (common femoral artery or above with femoropopliteal and/or tibioperoneal); IVY consistent with severe arterial disease. Treatments: As noted above Disposition: Discharge to home Discharge Condition: good. Discharge Instructions: Take all medications as prescribed, keep all follow-up appointments Follow Up: cheduled Outpatient Follow Up: Future Appointments Date Time Provider Department Center 01/03/2025 9:20 AM Raulito Dang MD [facility] [address] Follow-up Information BRYSON RODRIGUEZ MD . Specialty: Family Medicine Contact information: [facility] [id number] Scheduled Appointments Jan 03, 2025 9:20 AM (Arrive by 9:05 AM) POST OPERATION VISIT with MD Odal[facility] ([facility]) [place] [address] At the time of your visit please be aware of the following COVID-19 information: If you develop a new cough, fever, or shortness of breath, please call before your appointment. Please plan to arrive at least 15 minutes earlier than your appointment time as screening and registration may take longer than anticipated. Completing eCheck-in to pre-register and pay any prepayments due will allow you to have an expedited arrival process for your visit. Please be aware that the [facility] facility you are visiting may require you to wear a mask. It will not be unusual if you find that masking is required in some locations and not required in other locations. The determination is made based on the amount of COVID transmission and infection rate in the community where the facility is located. Please be prepared to wear a mask if the facility you are visiting requires masking. Masks are available upon entry into the facility; however, it is best to bring your own mask and put it on before entering the facility. If wearing a mask is not possible due to an underlying health condition, please work with your care team on an alternate plan before your scheduled appointment. With primary care provider, BRYSON RODRIGUEZ MD, as needed Discharge Medications: Medication List START taking these medications Instructions Last Dose Given Next Dose Due clopidogreL 75 mg tablet Commonly known as: PLAVIX Take 1 tablet (75 mg total) by mouth in the morning. CONTINUE taking these medications Instructions Last Dose Given Next Dose Due aspirin 81 mg chewable tablet Chew 1 tablet (81 mg total) and swallow in the morning. atorvastatin 40 mg tablet Commonly known as: LIPITOR TAKE 1 TABLET(40 MG) BY MOUTH IN THE MORNING CALCIUM ORAL Take 600 mg by mouth in the morning. carvediloL 12.5 mg tablet Commonly known as: COREG Take 1 tablet (12.5 mg total) by mouth in the morning and 1 tablet (12.5 mg total) in the evening. Take with meals. Indications: high blood pressure. cholecalciferol 1,000 units tablet Take 1 tablet (1,000 Units total) by mouth in the morning. docusate sodium 100 mg capsule Commonly known as: COLACE Take 1 capsule (100 mg total) by mouth in the morning and 1 capsule (100 mg total) before bedtime. Indications: constipation. folic acid 800 MCG tablet Commonly known as: FOLVITE Take 0.5 tablets (400 mcg total) by mouth in the morning. furosemide 40 mg tablet Commonly known as: LASIX Take 0.5 tablets (20 mg total) by mouth daily Indications: visible water retention. metFORMIN 500 mg tablet Commonly known as: GLUCOPHAGE Take 1 tablet (500 mg total) by mouth in the morning and 1 tablet (500 mg total) before bedtime. omega 0-mzr-gls-fish oil 100-400-1,000 mg capsule Take 1 capsule by mouth. spironolactone 100 mg tablet Commonly known as: ALDACTONE Take 0.5 tablets (50 mg total) by mouth in the morning. edema. vitamin B-12 1000 MCG tablet Generic drug: cyanocobalamin Take 1 tablet (1,000 mcg total) by mouth in the morning. Where to Get Your Medications These medications were sent to [id number] [address] clopidogreL 75 mg tablet Discharge Activity Level: As tolerated Discharge Diet: Regular texture Physical Exam at Discharge Patient was seen and examined bedside she appears to be doing well without any signs of acute distress. She was hemodynamically stable without any concerns or questions. Her surgical incisions are clean dry and intact without any signs of infection, drainage or bleeding. Her distal pulses are palpable DP and PT. She was voided, eaten, and ambulated appropriately. Patient will discharged with aspirin, Plavix, and statin. She has no further concerns or questions at this time. N Bowers 12/14/24 1132 documented in this encounter [facility] 12-14-2024 Plan of care note Problem: Pain Goal: Patient goal is pain score less than 4, able to rest, and participant in treatment plan as appropriate Description: INTERVENTIONS: 1. Encourage patient or legal independent sales representative to report early pain and ask for pain medicine when needed 2. Assess pain using appropriate pain scale and include the scale used when documenting 3. Administer analgesics based on type and severity of pain and evaluate response within appropriate time frame 4. Implement non-pharmacological measures as appropriate and evaluate response 5. Consider cultural and social influences on pain and pain management 6. Notify LIP if interventions ineffective or patient reports new pain 7. Monitor vital signs including pulse ox, end-tidal CO2 based on pain intervention 8. Reassess pain per policy 9. Teach patient or legal independent sales representative interventions for comforting Outcome: Progressing Note: Evaluation of progress towards goal: Pt denies pain at this time, vital signs stable, prn pain meds available as needed, plan of care ongoing. Problem: Safety Goal: Patient will be injury free during hospitalization Description: INTERVENTIONS: 1. Assess patient's risk for falls and implement fall prevention plan of care per policy 2. Provide and maintain a safe environment 3. Proper use of double Identifiers 4. Medication administration using the 5 rights 5. Hand hygiene 6. Specimens are labeled at the bedside 7. Instruct patient/ patient independent sales representative about use of safety devices 8. Include patient/ patient independent sales representative in decisions related to safety Outcome: Progressing Note: Evaluation of progress towards goal: Pt remains free from injury. 5 rights and proper hand hygiene have been performed. Plan of care ongoing, no further concerns as of present. Problem: Infection Goal: Absence of infection during hospitalization Description: INTERVENTIONS 1. Assess and monitor for signs and symptoms of infection. 2. Monitor lab/diagnostic results. 3. Monitor all insertion sites i.e., indwelling lines, tubes and drains. 4. Monitor endotracheal (as able) and nasal secretions for changes in amount and color. 5. Administer medications as ordered. 6. Instruct and encourage patient and family to use good hand hygiene technique. 7. Identify and instruct patient/patient independent sales representative in use of appropriate isolation precautions for identified infection/symptoms. 8. Provide and discuss with patient/patient independent sales representative on educational MDRO sheet. 9. Encourage and monitor nutritional status daily and consult newborn hearing screener if indicated. 10. Implement neutropenic guidelines as needed. Outcome: Progressing Note: Evaluation of progress towards goal: Pt remains afebrile with no signs of infection at this time. Plan of care ongoing. Problem: Knowledge Deficit Goal: Patient/patient independent sales representative demonstrates understanding of disease process, treatment plan, medications, and discharge instructions Description: INTERVENTIONS 1. Complete learning assessment and assess knowledge base 2. Provide teaching at level of understanding 3. Provide teaching via preferred learning method(s) Outcome: Progressing Note: Evaluation of progress towards goal: Patient has been educated on all interventions performed throughout the day. Problem: Discharge Planning Goal: Discharge to post-acute care, other facility, or home with appropriate resources Description: Patient's goal is: INTERVENTIONS 1. Conduct assessment to determine patient/family and health care team treatment goals, and need for post-acute services based on payer coverage, community resources, and patient preferences, and barriers to discharge 2. Coordinate with Social work, Care Navigation, and Utilization Review to arrange appropriate level of services according to patient's needs based on patient preference and payer coverage in collaboration with the physician and health care team 3. Address psychosocial, clinical, and financial barriers to discharge as identified in assessment in conjunction with the patient/family and health care team 4. Consult appropriate ancillary services (i.e.. PT/OT/ST, etc) as needed 5. Communicate with and update the patient/family, physician, and health care team regarding progress on the discharge plan 6. Identify discharge learning needs (meds, wound care, etc). 7. Arrange for needed discharge transportation as appropriate Outcome: Progressing Note: Evaluation of progress towards goal: Bernadine discussed being discharged with the admitting service today. Waiting for orders to begin discharge process. Problem: Moderate - High Risk Fall Score Description: Ortega Fall Score of =/> 25 or indicated by [facility] Assessment Goal: Patient should be free from fall Description: Interventions: 1. [place] to environment 2. Hourly rounds addressing the 4 P's (Pain, Positioning, Possessions, Potty) 3. Clear area of hazards (spills, clutter, electrical cords, unnecessary equipment) 4. Place equipment (bed & TV controls, call light, phone, urinal) within reach 5. Encourage patient to wear glasses and hearing aides as appropriate 6. Maintain bed in lowest position 7. Lock wheels on bed/wheelchair 8. Provide adequate lighting, including night light 9. Assess need for additional bedding, food/fluids, pain med's prior to sleep/routinely 10. Provide gripper slippers or personal non-skid footwear 11. Teach patient and patient independent sales representative to maintain environment for safety and engage in all aspects of fall prevention program 12. Remind patient to call for help before getting out of bed 13. Initiate bed/chair/exit alarms supportive devices as appropriate, (chair wedge, no-skid floor mat, raised edge mattress, hip protectors) 14. Locate patient bed assignment for optimal visualization 15. Evaluate and identify Safe Patient Handling Equipment needs 16. Provide supervision when out of bed or chair 17. Utilize gait belt as needed to assist with ambulation 18. Place adaptive equipment (cane, walker) within reach 19. Request patient independent sales representative bring adaptive equipment/mobility aids from home or obtain and provide as needed 20. Consult pharmacy regarding effects of med's affecting mobility, cognition, and alternatives 21. Obtain physician order for PT if risk factors associated with mobility are present 22. Obtain physician order for OT as appropriate 23. Utilize diversional activities 24. Educate patient and patient independent sales representative how to maintain a safe environment during visitation times (notify nurse prior to leaving bedside) 25. Consider appropriateness of medical or non-medical imaging tech 26. Set up voiding schedule as appropriate (every 2 hours) Outcome: Progressing Note: Evaluation of progress towards goal: Pt is on fall risk precautions. Bed/chair are locked, call light is within reach and non-skid foot wear are in place. Pt remains free from fall. Problem: Potential for Compromised Skin Integrity Goal: Skin integrity is maintained or improved Description: Patient's goal is: INTERVENTIONS 1. Perform initial skin assessment on admission and as needed 2. Turn patient every 2 hours and PRN 3. Relieve pressure to bony prominences 4. Avoid shearing 5. Keep skin clean and dry 6. Alternate a full bath with partial baths for elderly 7. Apply lotion/moisturizer on skin 8. Monitor patient's hygiene practices 9. Float heels 10. Collaborate with interdisciplinary team and initiate plans and interventions as needed Outcome: Progressing Note: Evaluation of progress towards goal: Patient has no signs of new skin breakdown at this time, repositioned every 2 hours and as needed. Problem: Urinary Incontinence Goal: Perineal skin integrity is maintained or improved Description: INTERVENTIONS 1. Assess genitourinary system, perineal skin, labs (urinalysis), and history of incontinence to include past management, aggravating, and alleviating factors 2. Keep skin clean and dry 3. Apply skin protectant 4. Develop skin care regimen 5. Provide privacy when changing patients incontinence device to maintain their dignity 6. Consider placing an indwelling catheter 7. Collaborate with interdisciplinary team and initiate plans and interventions as needed Outcome: Progressing Note: Evaluation of progress towards goal: Bernadine is urinating on her own and is continent of urine. [email or web address] [facility] 12-14-2024 Miscellaneous Notes Problem: Pain Goal: Patient goal is pain score less than 4, able to rest, and participant in treatment plan as appropriate Description: INTERVENTIONS: 1. Encourage patient or legal independent sales representative to report early pain and ask for pain medicine when needed 2. Assess pain using appropriate pain scale and include the scale used when documenting 3. Administer analgesics based on type and severity of pain and evaluate response within appropriate time frame 4. Implement non-pharmacological measures as appropriate and evaluate response 5. Consider cultural and social influences on pain and pain management 6. Notify LIP if interventions ineffective or patient reports new pain 7. Monitor vital signs including pulse ox, end-tidal CO2 based on pain intervention 8. Reassess pain per policy 9. Teach patient or legal independent sales representative interventions for comforting Outcome: Progressing Note: Evaluation of progress towards goal: Pt denies pain at this time, vital signs stable, prn pain meds available as needed, plan of care ongoing. Problem: Safety Goal: Patient will be injury free during hospitalization Description: INTERVENTIONS: 1. Assess patient's risk for falls and implement fall prevention plan of care per policy 2. Provide and maintain a safe environment 3. Proper use of double Identifiers 4. Medication administration using the 5 rights 5. Hand hygiene 6. Specimens are labeled at the bedside 7. Instruct patient/ patient independent sales representative about use of safety devices 8. Include patient/ patient independent sales representative in decisions related to safety Outcome: Progressing Note: Evaluation of progress towards goal: Pt remains free from injury. 5 rights and proper hand hygiene have been performed. Plan of care ongoing, no further concerns as of present. Problem: Infection Goal: Absence of infection during hospitalization Description: INTERVENTIONS 1. Assess and monitor for signs and symptoms of infection. 2. Monitor lab/diagnostic results. 3. Monitor all insertion sites i.e., indwelling lines, tubes and drains. 4. Monitor endotracheal (as able) and nasal secretions for changes in amount and color. 5. Administer medications as ordered. 6. Instruct and encourage patient and family to use good hand hygiene technique. 7. Identify and instruct patient/patient independent sales representative in use of appropriate isolation precautions for identified infection/symptoms. 8. Provide and discuss with patient/patient independent sales representative on educational MDRO sheet. 9. Encourage and monitor nutritional status daily and consult newborn hearing screener if indicated. 10. Implement neutropenic guidelines as needed. Outcome: Progressing Note: Evaluation of progress towards goal: Pt remains afebrile with no signs of infection at this time. Plan of care ongoing. Problem: Knowledge Deficit Goal: Patient/patient independent sales representative demonstrates understanding of disease process, treatment plan, medications, and discharge instructions Description: INTERVENTIONS 1. Complete learning assessment and assess knowledge base 2. Provide teaching at level of understanding 3. Provide teaching via preferred learning method(s) Outcome: Progressing Note: Evaluation of progress towards goal: Patient has been educated on all interventions performed throughout the day. Problem: Discharge Planning Goal: Discharge to post-acute care, other facility, or home with appropriate resources Description: Patient's goal is: INTERVENTIONS 1. Conduct assessment to determine patient/family and health care team treatment goals, and need for post-acute services based on payer coverage, community resources, and patient preferences, and barriers to discharge 2. Coordinate with Social work, Care Navigation, and Utilization Review to arrange appropriate level of services according to patient's needs based on patient preference and payer coverage in collaboration with the physician and health care team 3. Address psychosocial, clinical, and financial barriers to discharge as identified in assessment in conjunction with the patient/family and health care team 4. Consult appropriate ancillary services (i.e.. PT/OT/ST, etc) as needed 5. Communicate with and update the patient/family, physician, and health care team regarding progress on the discharge plan 6. Identify discharge learning needs (meds, wound care, etc). 7. Arrange for needed discharge transportation as appropriate Outcome: Progressing Note: Evaluation of progress towards goal: Bernadine discussed being discharged with the admitting service today. Waiting for orders to begin discharge process. Problem: Moderate - High Risk Fall Score Description: Ortega Fall Score of =/> 25 or indicated by [facility] Assessment Goal: Patient should be free from fall Description: Interventions: 1. [place] to environment 2. Hourly rounds addressing the 4 P's (Pain, Positioning, Possessions, Potty) 3. Clear area of hazards (spills, clutter, electrical cords, unnecessary equipment) 4. Place equipment (bed & TV controls, call light, phone, urinal) within reach 5. Encourage patient to wear glasses and hearing aides as appropriate 6. Maintain bed in lowest position 7. Lock wheels on bed/wheelchair 8. Provide adequate lighting, including night light 9. Assess need for additional bedding, food/fluids, pain med's prior to sleep/routinely 10. Provide gripper slippers or personal non-skid footwear 11. Teach patient and patient independent sales representative to maintain environment for safety and engage in all aspects of fall prevention program 12. Remind patient to call for help before getting out of bed 13. Initiate bed/chair/exit alarms supportive devices as appropriate, (chair wedge, no-skid floor mat, raised edge mattress, hip protectors) 14. Locate patient bed assignment for optimal visualization 15. Evaluate and identify Safe Patient Handling Equipment needs 16. Provide supervision when out of bed or chair 17. Utilize gait belt as needed to assist with ambulation 18. Place adaptive equipment (cane, walker) within reach 19. Request patient independent sales representative bring adaptive equipment/mobility aids from home or obtain and provide as needed 20. Consult pharmacy regarding effects of med's affecting mobility, cognition, and alternatives 21. Obtain physician order for PT if risk factors associated with mobility are present 22. Obtain physician order for OT as appropriate 23. Utilize diversional activities 24. Educate patient and patient independent sales representative how to maintain a safe environment during visitation times (notify nurse prior to leaving bedside) 25. Consider appropriateness of medical or non-medical imaging tech 26. Set up voiding schedule as appropriate (every 2 hours) Outcome: Progressing Note: Evaluation of progress towards goal: Pt is on fall risk precautions. Bed/chair are locked, call light is within reach and non-skid foot wear are in place. Pt remains free from fall. Problem: Potential for Compromised Skin Integrity Goal: Skin integrity is maintained or improved Description: Patient's goal is: INTERVENTIONS 1. Perform initial skin assessment on admission and as needed 2. Turn patient every 2 hours and PRN 3. Relieve pressure to bony prominences 4. Avoid shearing 5. Keep skin clean and dry 6. Alternate a full bath with partial baths for elderly 7. Apply lotion/moisturizer on skin 8. Monitor patient's hygiene practices 9. Float heels 10. Collaborate with interdisciplinary team and initiate plans and interventions as needed Outcome: Progressing Note: Evaluation of progress towards goal: Patient has no signs of new skin breakdown at this time, repositioned every 2 hours and as needed. Problem: Urinary Incontinence Goal: Perineal skin integrity is maintained or improved Description: INTERVENTIONS 1. Assess genitourinary system, perineal skin, labs (urinalysis), and history of incontinence to include past management, aggravating, and alleviating factors 2. Keep skin clean and dry 3. Apply skin protectant 4. Develop skin care regimen 5. Provide privacy when changing patients incontinence device to maintain their dignity 6. Consider placing an indwelling catheter 7. Collaborate with interdisciplinary team and initiate plans and interventions as needed Outcome: Progressing Note: Evaluation of progress towards goal: Bernadine is urinating on her own and is continent of urine. Problem: Pain Goal: Patient goal is pain score less than 4, able to rest, and participant in treatment plan as appropriate Description: INTERVENTIONS: 1. Encourage patient or legal independent sales representative to report early pain and ask for pain medicine when needed 2. Assess pain using appropriate pain scale and include the scale used when documenting 3. Administer analgesics based on type and severity of pain and evaluate response within appropriate time frame 4. Implement non-pharmacological measures as appropriate and evaluate response 5. Consider cultural and social influences on pain and pain management 6. Notify LIP if interventions ineffective or patient reports new pain 7. Monitor vital signs including pulse ox, end-tidal CO2 based on pain intervention 8. Reassess pain per policy 9. Teach patient or legal independent sales representative interventions for comforting Outcome: Progressing Note: Evaluation of progress towards goal: PRN oxycodone. No pain noted at this time. Problem: Safety Goal: Patient will be injury free during hospitalization Description: INTERVENTIONS: 1. Assess patient's risk for falls and implement fall prevention plan of care per policy 2. Provide and maintain a safe environment 3. Proper use of double Identifiers 4. Medication administration using the 5 rights 5. Hand hygiene 6. Specimens are labeled at the bedside 7. Instruct patient/ patient independent sales representative about use of safety devices 8. Include patient/ patient independent sales representative in decisions related to safety Outcome: Progressing Note: Evaluation of progress towards goal: Pt.'s safety maintained at this time. Problem: Moderate - High Risk Fall Score Description: Ortega Fall Score of =/> 25 or indicated by [facility] Assessment Goal: Patient should be free from fall Description: Interventions: 1. [place] to environment 2. Hourly rounds addressing the 4 P's (Pain, Positioning, Possessions, Potty) 3. Clear area of hazards (spills, clutter, electrical cords, unnecessary equipment) 4. Place equipment (bed & TV controls, call light, phone, urinal) within reach 5. Encourage patient to wear glasses and hearing aides as appropriate 6. Maintain bed in lowest position 7. Lock wheels on bed/wheelchair 8. Provide adequate lighting, including night light 9. Assess need for additional bedding, food/fluids, pain med's prior to sleep/routinely 10. Provide gripper slippers or personal non-skid footwear 11. Teach patient and patient independent sales representative to maintain environment for safety and engage in all aspects of fall prevention program 12. Remind patient to call for help before getting out of bed 13. Initiate bed/chair/exit alarms supportive devices as appropriate, (chair wedge, no-skid floor mat, raised edge mattress, hip protectors) 14. Locate patient bed assignment for optimal visualization 15. Evaluate and identify Safe Patient Handling Equipment needs 16. Provide supervision when out of bed or chair 17. Utilize gait belt as needed to assist with ambulation 18. Place adaptive equipment (cane, walker) within reach 19. Request patient independent sales representative bring adaptive equipment/mobility aids from home or obtain and provide as needed 20. Consult pharmacy regarding effects of med's affecting mobility, cognition, and alternatives 21. Obtain physician order for PT if risk factors associated with mobility are present 22. Obtain physician order for OT as appropriate 23. Utilize diversional activities 24. Educate patient and patient independent sales representative how to maintain a safe environment during visitation times (notify nurse prior to leaving bedside) 25. Consider appropriateness of medical or non-medical imaging tech 26. Set up voiding schedule as appropriate (every 2 hours) Outcome: Progressing Note: Evaluation of progress towards goal: Pt. Remains free from falls at this time. Problem: Potential for Compromised Skin Integrity Goal: Skin integrity is maintained or improved Description: Patient's goal is: INTERVENTIONS 1. Perform initial skin assessment on admission and as needed 2. Turn patient every 2 hours and PRN 3. Relieve pressure to bony prominences 4. Avoid shearing 5. Keep skin clean and dry 6. Alternate a full bath with partial baths for elderly 7. Apply lotion/moisturizer on skin 8. Monitor patient's hygiene practices 9. Float heels 10. Collaborate with interdisciplinary team and initiate plans and interventions as needed Outcome: Progressing Note: Evaluation of progress towards goal: Pt.'s skin integrity maintained at this time. Goal: Patient's nutritional intake is adequate Description: Patient's goal is: INTERVENTIONS 1. Assess and monitor food intake and supplements, patient food preferences, nausea, vomiting, labs, oral cavity (gums, teeth, tongue, mucosa), proper denture fit, and cultural beliefs 2. Monitor for signs of hypoglycemia and hyperglycemia 3. Collaborate with interdisciplinary team and initiate plan and interventions as ordered 4. Monitor patient's weight 5. Assist patient with meals/food selection 6. Assist patient with eating 7. Allow adequate time for meals 8. Provide pleasant environment during mealtime 9. Increase social contact during mealtimes 10. Plan activities to conserve energy 11. Encourage/perform oral hygiene as appropriate 12. Encourage patient to take dietary supplement as ordered 13. Collaborate with clinical newborn hearing screener 14. Include patient/ patient's independent sales representative in decisions related to nutrition Outcome: Progressing Note: Evaluation of progress towards goal: Pt.'s nutritional intake adequate at this time. Problem: Urinary Incontinence Goal: Perineal skin integrity is maintained or improved Description: INTERVENTIONS 1. Assess genitourinary system, perineal skin, labs (urinalysis), and history of incontinence to include past management, aggravating, and alleviating factors 2. Keep skin clean and dry 3. Apply skin protectant 4. Develop skin care regimen 5. Provide privacy when changing patients incontinence device to maintain their dignity 6. Consider placing an indwelling catheter 7. Collaborate with interdisciplinary team and initiate plans and interventions as needed Outcome: Progressing Note: Evaluation of progress towards goal: Pt.'s perineal skin integrity maintained at this time. Images from the original note were not included. [facility] Operative Note DATE OF PROCEDURE: 12/13/24 PATIENT NAME: Bernadine Bhakta SURGEON: Surgeons and Role: * Raulito Dang MD - Primary ASSISTANTS: Chelo Blake, Vascular Surgery Fellow STAFF: Hotel Custodian Primary: Tucker Bhatia RN Scrub Person: Gus Guevara, CHANDLER Fellow: Kathy Blake MD PRE-OP DIAGNOSIS: peripheral vascular disease, tissue loss right lower extremity POST-OP DIAGNOSIS: same PROCEDURE: Right iliofemoral endarterectomy + patch angioplasty ANESTHESIA: general EBL: 100 mL COMPLICATIONS: None. 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 CTA demonstrate significant common femoral occlusion disease with proximal SFA stenosis. Management options were discussed and patient recommended to undergo right femoral endarterectomy, possible angiogram for revascularization. CONSENT: Risks, benefits, and alternatives were discussed prior to the procedure including, but not limited to, the risks of infection, blood loss, damage to nearby tissues/ nerve injury, cardiac / pulmonary complications, and even . All questions/concerns were addressed and informed consent was obtained, witnessed by nurse, and placed on the pt's chart. PROCEDURE: Patient was brought back to the operative suite and placed in the supine position. A time out was completed confirming identification of proper patient, position, and procedure to be preformed. General anesthesia was induced and bilateral groins were clipped. The patient was then prepped and draped in normal sterile fashion. Preoperative antibiotic was administered. Right groin evaluated and incision planned using a skin marker. Incision created using a scalpel followed by electrocautery. Given the groin fold, we did approach the femoral artery from a slightly lateral approach to avoid making an incision in the groin crease. The right common femoral artery was identified and circumferentially dissected. Lymphatics were ligated as they were encountered. The right common femoral artery was heavily calcified. We dissected proximally under the inguinal ligament until soft healthy artery was identified. Control of the distal external iliac artery was obtained using vessel loop. We dissected distally into the superficial femoral artery and profunda femoral artery. Distal control was obtained using vessel loops. All small branches were obtained using vessel loops. Patient was systemically anticoagulated with heparin that was allowed to circulate for at least 3 minutes prior to clamping of all vessels. ACT levels were rechecked throughout the case and heparin was rebolused to maintain therapeutic level of >250. Proximal and distal control as well as control of all branches were obtained with vessel loops and vascular clamps. A longitudinal arteriotomy was created along the common femoral artery with #11 blade scalpel and extended above and below plaque via Biggs scissors down into the proximal SFA. Endarterectomy completed via [place] elevator with removal of significant amount of plaque. All small pieces of plaque tissue were removed form the endarterectomy site. Copious irrigation with heparinized saline was used to clean the site. 3 tacking sutures using 7-0 prolene were placed at the ostium of the profunda to prevent flap advancement. Patch angioplasty was then completed using xenosure bovine pericardium patch. This was sutured in place using running 5-0 Prolene suture. Just prior to completion of the suture line the vessels were allowed to back bleed. The area was flushed with heparinized saline. Doppler confirmed flow within superficial femoral artery and profunda artery. After endarterectomy and patch angioplasty the right common femoral artery was noted to have strong palpable pulse on direct palpation of artery which was much improved from baseline. At the proximal aspect of the patch, there was a narrowing that was felt to be significant and therefore we decided to revised as this was our inflow. Proximal and distal control was obtained with vascular clamps above and below the proximal aspect of the anastomosis. 5-0 prolene sutures x2 were placed on either side of the patch about 2cm distal to the proximal end of the patch. A patchotomy was made in the patch and extended 2cm proximally into [place] common femoral artery. Proximal extension patch angioplasty using bovine pericardium was performed using running 5-0 prolene sutures. Prior to completion, the vessel was allowed to back and forward bleed. One 6-0 prolene repair stitch was placed at the anastomosis, hemostasis was achieved. The foot was examined. There was a strong palpable PT pulse, strong doppler DP/PT signals. The patient was reversed with 40mg protamine. Hemostasis was ensured via electrocautery. Wound closed in multi-layer fashion with 2-0 vicryl inverted inturrupted in the deep fascial layer as well as deep dermal layer. Skin approximated using 3-0 nylon vertical mattress fashion. Sterile dressing was placed. All sponge and instrument counts were correct at the end of the procedure. The patient tolerated the procedure well. The patient was awakened from anesthesia and was transported to PACU in stable condition. Dr. Dang was present for the entire procedure. Associated attestation - Raulito Dang MD - 12/14/2024 5:32 PM EDT I was present and performed all the critical portions of the procedure, performed structured guidance at appropriate times, and was always immediately available. 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) [I70.261] Complications: Additions (Drains, Specimens, Implants): Estimated Blood Loss: 100 mL OB Surgical Procedure Blood Loss: Anesthesia EBL: * No values recorded between 12/13/2024 3:39 PM and 12/13/2024 7:00 PM * OB QBL: * No values recorded between 12/13/2024 3:39 PM and 12/13/2024 7:00 PM * Total IV Fluids: Intravenous fluids were administered Condition: good Findings: Right iliofemoral endarterectomy + patch angioplasty Palp DP, dop DP/PT Cruz SBP 100-140 documented in this encounter [facility] 12-14-2024 History of Present illness Narrative Images from the original note were not included. [facility] [place] [facility] Progress Note Patient ID: Bernadine Bhakta, 59 y.o. female Date of Admission: 12/13/2024 12:49 PM Referring Physician: Raulito Dang MD PCP: BRYSON RODRIGUEZ MD SUBJECTIVE/INTERVAL HISTORY: Patient was seen and examined at bedside. Patient denied acute events overnight. Patient denies nausea, vomiting, constipation, diarrhea, shortness of breath, cough, chest pain, fevers, chills, lightheadedness or dizziness. Patient states pain is well-controlled with current pain regimen. Patient states they are tolerating diet. OBJECTIVE: Vital signs: Vitals: 12/14/24 0330 12/14/24 0345 12/14/24 0400 12/14/24 0500 BP: 109/66 105/54 106/64 107/66 Pulse: 76 75 73 75 Resp: 13 13 14 17 Temp: TempSrc: SpO2: 93% 93% 94% 97% Weight: Temperature Range Last 24 Hours : Temp: 36.5 C (97.7 F) Temp Av.3 C (97.3 F) Min: 36 C (96.8 F) Max: 36.8 C (98.2 F) Respiratory Source: O2 Device: None (Room air) I/O's: Intake/Output Summary (Last 24 hours) at 12/14/2024 0621 Last data filed at 12/14/2024 0301 Gross per 24 hour Intake 4640.28 ml Output 1370 ml Net 3270.28 ml PHYSICAL EXAMINATION: General: Resting supine in bed. NAD. Neuro: AO x 3. CN grossly intact. Normal speech per baseline. Negative for focal deficit including weakness or loss of sensation. HEENT: No tenderness to neck Respiratory: Non-labored breathing on room air. Abdomen/GI: Soft, non-distended, and non-tender to palpation. Groin is clean/dry/intact. Renal/: Deferred. MSK: - Lower extremities: Grossly intact -patient has critical limb threatening ischemia with tissue loss right lower extremity/dry gangrene Skin: Warm, dry, and otherwise grossly intact. VASCULAR EXAM: FEMORAL POPLITEAL PT DP R 2+ Monophasic Multiphasic ASSESSMENT / PLAN / RECOMMENDATIONS Patient is a 59 y.o. female status post right ileo fem endarterectomy and patch angioplasty on 12/13/2024 for critical limb threatening ischemia with tissue loss - Continue medical management, supportive care - Analgesia: Multimodal - Diet: Regular - IVF: DC once tolerating adequate p.o. intake - Antiplatelets: Aspirin/Plavix - Continue to encourage ambulation, activity, and IS use - DVT/VTE prophylaxis: SubQ heparin Baudilio Shen DO MA Vascular Surgery Fellow 12/14/24 6:21 AM Cosigned by Raulito Dagn MD at 12/14/2024 6:13 PM EDT Associated attestation - Raulito Dang MD - 12/14/2024 6:13 PM EDT I saw and evaluated the patient on the date of service, and reviewed the relevant investigations and tests. I agree with the findings and the plan of care as documented in the Resident Physician s note documented in this encounter [facility] 12-14-2024 Plan of care note Problem: Pain Goal: Patient goal is pain score less than 4, able to rest, and participant in treatment plan as appropriate Description: INTERVENTIONS: 1. Encourage patient or legal independent sales representative to report early pain and ask for pain medicine when needed 2. Assess pain using appropriate pain scale and include the scale used when documenting 3. Administer analgesics based on type and severity of pain and evaluate response within appropriate time frame 4. Implement non-pharmacological measures as appropriate and evaluate response 5. Consider cultural and social influences on pain and pain management 6. Notify LIP if interventions ineffective or patient reports new pain 7. Monitor vital signs including pulse ox, end-tidal CO2 based on pain intervention 8. Reassess pain per policy 9. Teach patient or legal independent sales representative interventions for comforting Outcome: Progressing Note: Evaluation of progress towards goal: PRN oxycodone. No pain noted at this time. Problem: Safety Goal: Patient will be injury free during hospitalization Description: INTERVENTIONS: 1. Assess patient's risk for falls and implement fall prevention plan of care per policy 2. Provide and maintain a safe environment 3. Proper use of double Identifiers 4. Medication administration using the 5 rights 5. Hand hygiene 6. Specimens are labeled at the bedside 7. Instruct patient/ patient independent sales representative about use of safety devices 8. Include patient/ patient independent sales representative in decisions related to safety Outcome: Progressing Note: Evaluation of progress towards goal: Pt.'s safety maintained at this time. Problem: Moderate - High Risk Fall Score Description: Ortega Fall Score of =/> 25 or indicated by [facility] Assessment Goal: Patient should be free from fall Description: Interventions: 1. [place] to environment 2. Hourly rounds addressing the 4 P's (Pain, Positioning, Possessions, Potty) 3. Clear area of hazards (spills, clutter, electrical cords, unnecessary equipment) 4. Place equipment (bed & TV controls, call light, phone, urinal) within reach 5. Encourage patient to wear glasses and hearing aides as appropriate 6. Maintain bed in lowest position 7. Lock wheels on bed/wheelchair 8. Provide adequate lighting, including night light 9. Assess need for additional bedding, food/fluids, pain med's prior to sleep/routinely 10. Provide gripper slippers or personal non-skid footwear 11. Teach patient and patient independent sales representative to maintain environment for safety and engage in all aspects of fall prevention program 12. Remind patient to call for help before getting out of bed 13. Initiate bed/chair/exit alarms supportive devices as appropriate, (chair wedge, no-skid floor mat, raised edge mattress, hip protectors) 14. Locate patient bed assignment for optimal visualization 15. Evaluate and identify Safe Patient Handling Equipment needs 16. Provide supervision when out of bed or chair 17. Utilize gait belt as needed to assist with ambulation 18. Place adaptive equipment (cane, walker) within reach 19. Request patient independent sales representative bring adaptive equipment/mobility aids from home or obtain and provide as needed 20. Consult pharmacy regarding effects of med's affecting mobility, cognition, and alternatives 21. Obtain physician order for PT if risk factors associated with mobility are present 22. Obtain physician order for OT as appropriate 23. Utilize diversional activities 24. Educate patient and patient independent sales representative how to maintain a safe environment during visitation times (notify nurse prior to leaving bedside) 25. Consider appropriateness of medical or non-medical imaging tech 26. Set up voiding schedule as appropriate (every 2 hours) Outcome: Progressing Note: Evaluation of progress towards goal: Pt. Remains free from falls at this time. Problem: Potential for Compromised Skin Integrity Goal: Skin integrity is maintained or improved Description: Patient's goal is: INTERVENTIONS 1. Perform initial skin assessment on admission and as needed 2. Turn patient every 2 hours and PRN 3. Relieve pressure to bony prominences 4. Avoid shearing 5. Keep skin clean and dry 6. Alternate a full bath with partial baths for elderly 7. Apply lotion/moisturizer on skin 8. Monitor patient's hygiene practices 9. Float heels 10. Collaborate with interdisciplinary team and initiate plans and interventions as needed Outcome: Progressing Note: Evaluation of progress towards goal: Pt.'s skin integrity maintained at this time. Goal: Patient's nutritional intake is adequate Description: Patient's goal is: INTERVENTIONS 1. Assess and monitor food intake and supplements, patient food preferences, nausea, vomiting, labs, oral cavity (gums, teeth, tongue, mucosa), proper denture fit, and cultural beliefs 2. Monitor for signs of hypoglycemia and hyperglycemia 3. Collaborate with interdisciplinary team and initiate plan and interventions as ordered 4. Monitor patient's weight 5. Assist patient with meals/food selection 6. Assist patient with eating 7. Allow adequate time for meals 8. Provide pleasant environment during mealtime 9. Increase social contact during mealtimes 10. Plan activities to conserve energy 11. Encourage/perform oral hygiene as appropriate 12. Encourage patient to take dietary supplement as ordered 13. Collaborate with clinical newborn hearing screener 14. Include patient/ patient's independent sales representative in decisions related to nutrition Outcome: Progressing Note: Evaluation of progress towards goal: Pt.'s nutritional intake adequate at this time. Problem: Urinary Incontinence Goal: Perineal skin integrity is maintained or improved Description: INTERVENTIONS 1. Assess genitourinary system, perineal skin, labs (urinalysis), and history of incontinence to include past management, aggravating, and alleviating factors 2. Keep skin clean and dry 3. Apply skin protectant 4. Develop skin care regimen 5. Provide privacy when changing patients incontinence device to maintain their dignity 6. Consider placing an indwelling catheter 7. Collaborate with interdisciplinary team and initiate plans and interventions as needed Outcome: Progressing Note: Evaluation of progress towards goal: Pt.'s perineal skin integrity maintained at this time. [facility] 12-13-2024 Procedure note Images from the original note were not included. [facility] [place] [facility] Operative Note DATE OF PROCEDURE: 12/13/24 PATIENT NAME: Bernadine Bhakta SURGEON: Surgeons and Role: * Raulito Dang MD - Primary ASSISTANTS: Chelo Blake, Vascular Surgery Fellow STAFF: Hotel Custodian Primary: Tucker Bhatia RN Scrub Person: Gus Guevara, OCCUPATIONAL THERAPIST ASSISTANT Fellow: Kathy Blake MD PRE-OP DIAGNOSIS: peripheral vascular disease, tissue loss right lower extremity POST-OP DIAGNOSIS: same PROCEDURE: Right iliofemoral endarterectomy + patch angioplasty ANESTHESIA: general EBL: 100 mL COMPLICATIONS: None. 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 CTA demonstrate significant common femoral occlusion disease with proximal SFA stenosis. Management options were discussed and patient recommended to undergo right femoral endarterectomy, possible angiogram for revascularization. CONSENT: Risks, benefits, and alternatives were discussed prior to the procedure including, but not limited to, the risks of infection, blood loss, damage to nearby tissues/ nerve injury, cardiac / pulmonary complications, and even . All questions/concerns were addressed and informed consent was obtained, witnessed by nurse, and placed on the pt's chart. PROCEDURE: Patient was brought back to the operative suite and placed in the supine position. A time out was completed confirming identification of proper patient, position, and procedure to be preformed. General anesthesia was induced and bilateral groins were clipped. The patient was then prepped and draped in normal sterile fashion. Preoperative antibiotic was administered. Right groin evaluated and incision planned using a skin marker. Incision created using a scalpel followed by electrocautery. Given the groin fold, we did approach the femoral artery from a slightly lateral approach to avoid making an incision in the groin crease. The right common femoral artery was identified and circumferentially dissected. Lymphatics were ligated as they were encountered. The right common femoral artery was heavily calcified. We dissected proximally under the inguinal ligament until soft healthy artery was identified. Control of the distal external iliac artery was obtained using vessel loop. We dissected distally into the superficial femoral artery and profunda femoral artery. Distal control was obtained using vessel loops. All small branches were obtained using vessel loops. Patient was systemically anticoagulated with heparin that was allowed to circulate for at least 3 minutes prior to clamping of all vessels. ACT levels were rechecked throughout the case and heparin was rebolused to maintain therapeutic level of >250. Proximal and distal control as well as control of all branches were obtained with vessel loops and vascular clamps. A longitudinal arteriotomy was created along the common femoral artery with #11 blade scalpel and extended above and below plaque via Biggs scissors down into the proximal SFA. Endarterectomy completed via [place] elevator with removal of significant amount of plaque. All small pieces of plaque tissue were removed form the endarterectomy site. Copious irrigation with heparinized saline was used to clean the site. 3 tacking sutures using 7-0 prolene were placed at the ostium of the profunda to prevent flap advancement. Patch angioplasty was then completed using xenosure bovine pericardium patch. This was sutured in place using running 5-0 Prolene suture. Just prior to completion of the suture line the vessels were allowed to back bleed. The area was flushed with heparinized saline. Doppler confirmed flow within superficial femoral artery and profunda artery. After endarterectomy and patch angioplasty the right common femoral artery was noted to have strong palpable pulse on direct palpation of artery which was much improved from baseline. At the proximal aspect of the patch, there was a narrowing that was felt to be significant and therefore we decided to revised as this was our inflow. Proximal and distal control was obtained with vascular clamps above and below the proximal aspect of the anastomosis. 5-0 prolene sutures x2 were placed on either side of the patch about 2cm distal to the proximal end of the patch. A patchotomy was made in the patch and extended 2cm proximally into [place] common femoral artery. Proximal extension patch angioplasty using bovine pericardium was performed using running 5-0 prolene sutures. Prior to completion, the vessel was allowed to back and forward bleed. One 6-0 prolene repair stitch was placed at the anastomosis, hemostasis was achieved. The foot was examined. There was a strong palpable PT pulse, strong doppler DP/PT signals. The patient was reversed with 40mg protamine. Hemostasis was ensured via electrocautery. Wound closed in multi-layer fashion with 2-0 vicryl inverted inturrupted in the deep fascial layer as well as deep dermal layer. Skin approximated using 3-0 nylon vertical mattress fashion. Sterile dressing was placed. All sponge and instrument counts were correct at the end of the procedure. The patient tolerated the procedure well. The patient was awakened from anesthesia and was transported to PACU in stable condition. Dr. Dang was present for the entire procedure. Associated attestation - Raulito Dang MD - 12/14/2024 5:32 PM EDT I was present and performed all the critical portions of the procedure, performed structured guidance at appropriate times, and was always immediately available. 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 ([facility]-HCC) [I70.261] Procedure Details: Procedure(s): ENDARTERECTOMY ILIO-FEMORAL (Right) - Wound Class: Clean ANGIOPLASTY CUTDOWN FEMORAL (Right) - Wound Class: Clean Anesthesia Type: General Post-Op Diagnosis Codes: * 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) [I70.261] Complications: Additions (Drains, Specimens, Implants): Estimated Blood Loss: 100 mL OB Surgical Procedure Blood Loss: Anesthesia EBL: * No values recorded between 12/13/2024 3:39 PM and 12/13/2024 7:00 PM * OB QBL: * No values recorded between 12/13/2024 3:39 PM and 12/13/2024 7:00 PM * Total IV Fluids: Intravenous fluids were administered Condition: good Findings: Right iliofemoral endarterectomy + patch angioplasty Palp DP, dop DP/PT Cruz SBP 100-140 [facility] 12-13-2024 Attending History and physical note HISTORY AND PHYSICAL INTERVAL NOTE: Bernadine Bhakta 1965 [id number] H&P reviewed. The patient was examined and there are no changes to the H&P. Raulito Dang MD Source Note - Raulito Dang MD - 11/29/2024 10:30 AM EDT Images from the original note were not included. To: BRYSON RODRIGUEZ MD HPI: Bernadine hBakta is a 59 y.o. 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 She had a PVR and IVY that shows significant occlusive disease and CTA that shows common femoral occlusive disease with SFA stenotic disease. Her gangrene is dry.. Review of Systems: Review of Systems Constitutional: Negative. HENT: Negative. Respiratory: Negative. Cardiovascular: Negative. Gastrointestinal: Negative. Endocrine: Negative. Genitourinary: Negative. Musculoskeletal: Negative. Skin: Negative. Neurological: Negative. Hematological: Negative. Medications: Current Outpatient Medications on File Prior to Visit Medication Sig Dispense Refill aspirin 81 mg chewable tablet Chew 1 tablet (81 mg total) and swallow in the morning. 90 tablet 4 calcium carbonate-vitamin D3 (CALCIUM 500 + D) 500 mg(1,250mg) -200 units per tablet Take 1 tablet by mouth in the morning and 1 tablet in the evening. Take with meals. carvediloL (COREG) 12.5 mg tablet Take 1 tablet (12.5 mg total) by mouth in the morning and 1 tablet (12.5 mg total) in the evening. Take with meals. cyanocobalamin (vitamin B-12) 1000 MCG tablet Take 100 mcg by mouth in the morning. docusate sodium (COLACE) 100 mg capsule Take 1 capsule (100 mg total) by mouth in the morning and 1 capsule (100 mg total) before bedtime. furosemide (LASIX) 40 mg tablet Take 1 tablet (40 mg total) by mouth daily. metFORMIN (GLUCOPHAGE) 500 mg tablet Take 1 tablet (500 mg total) by mouth in the morning and 1 tablet (500 mg total) before bedtime. psyllium (METAMUCIL) 0.52 gram capsule Take 1 capsule (0.52 g total) by mouth in the morning. spironolactone (ALDACTONE) 100 mg tablet Take 1 tablet (100 mg total) by mouth in the morning. coconut oil 1,000 mg capsule Take by mouth. (Patient not taking: Reported on 11/29/2024) No current facility-administered medications on file prior to visit. Past Medical History: Past Medical History: Diagnosis Date Anemia Hyperlipidemia Past Surgical History: Past Surgical History: Procedure Laterality Date APPENDECTOMY SECTION 1989 COLONOSCOPY N/A 05/19/2020 Performed by Mehul Zhu DO at [facility] HEMORRHOIDECTOMY JOINT REPLACEMENT Right HIP KNEE SURGERY Right LEG SURGERY Right SOFT TISSUE CYST EXCISION LEFT CHEEK TUBAL LIGATION Social and Family History: Social History Socioeconomic History Marital status: Spouse name: Not on file Number of children: Not on file Years of education: Not on file Highest education level: Not on file Occupational History Not on file Tobacco Use Smoking status: Former Current packs/day: 2.00 Average packs/day: 2.0 packs/day for 27.0 years (54.0 ttl pk-yrs) Types: Cigarettes Smokeless tobacco: Never Substance and Sexual Activity Alcohol use: Yes Comment: social Drug use: No Sexual activity: Defer Other Topics Concern Not on file Social History Narrative Not on file Social Drivers of Health Financial Resource Strain: Not on file Food Insecurity: No Food Insecurity (11/29/2024) Hunger Screening Food Insecurity - Worry: Never True Food Insecurity - Inability: Never True Transportation Needs: Not on file Physical Activity: Not on file Stress: Not on file Social Connections: Not on file Interpersonal Safety: Not on file Housing Instability: Not on file Family History Problem Relation Age of Onset Aneurysm Mother Cancer Father UNKNOWN Diabetes Maternal Grandmother Recent Labs: Recent and relative labs were reviewed and interpreted and contributed to the assessment and plan below. Vitals: BP 128/72 (BP Site: Right Arm, BP Postition: Sitting, BP CUFF SIZE: M (9-13 inches)) Pulse 70 Temp 36.2 C (97.1 F) (Temporal) Ht 162.6 cm (5' 4 ) Wt 63.5 kg (140 lb) SpO2 98% BMI 24.03 kg/m Body mass index is 24.03 kg/m . Physical Exam: Physical Exam Constitutional: Appearance: Normal appearance. HENT: Head: Normocephalic and atraumatic. Mouth/Throat: Mouth: Mucous membranes are moist. Eyes: Extraocular Movements: Extraocular movements intact. Pupils: Pupils are equal, round, and reactive to light. Cardiovascular: Rate and Rhythm: Normal rate and regular rhythm. Pulmonary: Effort: Pulmonary effort is normal. Breath sounds: Normal breath sounds. Abdominal: General: Abdomen is flat. Bowel sounds are normal. Palpations: Abdomen is soft. Musculoskeletal: General: Normal range of motion. Cervical back: Normal range of motion. Skin: General: Skin is warm and dry. Neurological: General: No focal deficit present. Mental Status: She is alert and oriented to person, place, and time. Mental status is at baseline. Psychiatric: Mood and Affect: Mood normal. Behavior: Behavior normal. Thought Content: Thought content normal. Judgment: Judgment normal. 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 Bernadine was seen today for critical limb ischemia of right lower extremity with gangre. 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 While intending to generate a timely document that accurately reflects the content of the visit, no guarantee can be provided that every grammatical or spelling mistake has been or will be identified or corrected. Thank you for your understanding. [facility] 12-13-2024 History and physical note HISTORY AND PHYSICAL INTERVAL NOTE: Bernadine Bhakta 1965 [id number] H&P reviewed. The patient was examined and there are no changes to the H&P. Raulito Dang MD Source Note - Raulito Dang MD - 11/29/2024 10:30 AM EDT Images from the original note were not included. To: BRYSON RODRIGUEZ MD HPI: Bernadine Bhakta is a 59 y.o. 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 She had a PVR and IVY that shows significant occlusive disease and CTA that shows common femoral occlusive disease with SFA stenotic disease. Her gangrene is dry.. Review of Systems: Review of Systems Constitutional: Negative. HENT: Negative. Respiratory: Negative. Cardiovascular: Negative. Gastrointestinal: Negative. Endocrine: Negative. Genitourinary: Negative. Musculoskeletal: Negative. Skin: Negative. Neurological: Negative. Hematological: Negative. Medications: Current Outpatient Medications on File Prior to Visit Medication Sig Dispense Refill aspirin 81 mg chewable tablet Chew 1 tablet (81 mg total) and swallow in the morning. 90 tablet 4 calcium carbonate-vitamin D3 (CALCIUM 500 + D) 500 mg(1,250mg) -200 units per tablet Take 1 tablet by mouth in the morning and 1 tablet in the evening. Take with meals. carvediloL (COREG) 12.5 mg tablet Take 1 tablet (12.5 mg total) by mouth in the morning and 1 tablet (12.5 mg total) in the evening. Take with meals. cyanocobalamin (vitamin B-12) 1000 MCG tablet Take 100 mcg by mouth in the morning. docusate sodium (COLACE) 100 mg capsule Take 1 capsule (100 mg total) by mouth in the morning and 1 capsule (100 mg total) before bedtime. furosemide (LASIX) 40 mg tablet Take 1 tablet (40 mg total) by mouth daily. metFORMIN (GLUCOPHAGE) 500 mg tablet Take 1 tablet (500 mg total) by mouth in the morning and 1 tablet (500 mg total) before bedtime. psyllium (METAMUCIL) 0.52 gram capsule Take 1 capsule (0.52 g total) by mouth in the morning. spironolactone (ALDACTONE) 100 mg tablet Take 1 tablet (100 mg total) by mouth in the morning. coconut oil 1,000 mg capsule Take by mouth. (Patient not taking: Reported on 11/29/2024) No current facility-administered medications on file prior to visit. Past Medical History: Past Medical History: Diagnosis Date Anemia Hyperlipidemia Past Surgical History: Past Surgical History: Procedure Laterality Date APPENDECTOMY SECTION 1989 COLONOSCOPY N/A 05/19/2020 Performed by Mehul Zhu DO at [facility] HEMORRHO[facility] JOINT REPLACEMENT Right HIP KNEE SURGERY Right LEG SURGERY Right SOFT TISSUE CYST EXCISION LEFT CHEEK TUBAL LIGATION Social and Family History: Social History Socioeconomic History Marital status: Spouse name: Not on file Number of children: Not on file Years of education: Not on file Highest education level: Not on file Occupational History Not on file Tobacco Use Smoking status: Former Current packs/day: 2.00 Average packs/day: 2.0 packs/day for 27.0 years (54.0 ttl pk-yrs) Types: Cigarettes Smokeless tobacco: Never Substance and Sexual Activity Alcohol use: Yes Comment: social Drug use: No Sexual activity: Defer Other Topics Concern Not on file Social History Narrative Not on file Social Drivers of Health Financial Resource Strain: Not on file Food Insecurity: No Food Insecurity (11/29/2024) Hunger Screening Food Insecurity - Worry: Never True Food Insecurity - Inability: Never True Transportation Needs: Not on file Physical Activity: Not on file Stress: Not on file Social Connections: Not on file Interpersonal Safety: Not on file Housing Instability: Not on file Family History Problem Relation Age of Onset Aneurysm Mother Cancer Father UNKNOWN Diabetes Maternal Grandmother Recent Labs: Recent and relative labs were reviewed and interpreted and contributed to the assessment and plan below. Vitals: BP 128/72 (BP Site: Right Arm, BP Postition: Sitting, BP CUFF SIZE: M (9-13 inches)) Pulse 70 Temp 36.2 C (97.1 F) (Temporal) Ht 162.6 cm (5' 4 ) Wt 63.5 kg (140 lb) SpO2 98% BMI 24.03 kg/m Body mass index is 24.03 kg/m . Physical Exam: Physical Exam Constitutional: Appearance: Normal appearance. HENT: Head: Normocephalic and atraumatic. Mouth/Throat: Mouth: Mucous membranes are moist. Eyes: Extraocular Movements: Extraocular movements intact. Pupils: Pupils are equal, round, and reactive to light. Cardiovascular: Rate and Rhythm: Normal rate and regular rhythm. Pulmonary: Effort: Pulmonary effort is normal. Breath sounds: Normal breath sounds. Abdominal: General: Abdomen is flat. Bowel sounds are normal. Palpations: Abdomen is soft. Musculoskeletal: General: Normal range of motion. Cervical back: Normal range of motion. Skin: General: Skin is warm and dry. Neurological: General: No focal deficit present. Mental Status: She is alert and oriented to person, place, and time. Mental status is at baseline. Psychiatric: Mood and Affect: Mood normal. Behavior: Behavior normal. Thought Content: Thought content normal. Judgment: Judgment normal. 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 Bernadine was seen today for critical limb ischemia of right lower extremity with gangre. 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 This note was created with the assistance of a speech recognition program. While intending to generate a timely document that accurately reflects the content of the visit, no guarantee can be provided that every grammatical or spelling mistake has been or will be identified or corrected. Thank you for your understanding. documented in this encounter [facility] [facility] 12-10-2024 History and physical note Images from the original note were not included. PRE-ADMISSION TESTING HISTORY AND PHYSICAL EXAM DATE: 12/10/24 PCP: BRYSON RODRIGUEZ MD CHIEF COMPLAINT: Right foot wounds and leg numbness HISTORY OF PRESENT ILLNESS: Bernadine Bhakta, a 59 y.o. White or female, presents to [facility] for a pre-surgical H&P. The patient reports right leg numbness and right foot/toe wounds. She is followed by wound care. CT Angiogram done 11/16/2024 demonstrates: Ms. Bhakta was evaluated by Cardiology 12/04/2024 and note states Several risk factors for coronary disease. Will check a stress test to make sure he was no large areas of ischemia prior to her procedures. Results of these studies are in my note below for review. She denies chest pain, dyspnea, recent illness or fever. 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 ([facility]) Diabetes ([facility]) Fractures 09/12/2024 Wrist, tibia on the right Hyperlipidemia Hypertension Pre-diabetes on metformin Rash 12/10/2024 Wound right big toe, side of right foot Seizures (CMS-HCC) Last one > 10 years Visual impairment Glasses PAST SURGICAL HISTORY: Past Surgical History: Procedure Laterality Date APPENDECTOMY SECTION 1989 COLONOSCOPY N/A 05/19/2020 Performed by Mehul Zhu DO at [facility] HEMORRHO[facility] JOINT REPLACEMENT Right 2012 HIP KNEE SURGERY Right 2022 Fixed tibia contains metal LEG SURGERY Right 2022 Tibia SOFT TISSUE CYST EXCISION LEFT CHEEK TUBAL LIGATION FAMILY HISTORY: Family History Problem Relation Age of Onset Aneurysm Mother Cancer Father UNKNOWN Diabetes Maternal Grandmother Anesthesia problems Neg Hx SOCIAL HISTORY: The patient reports that she does not currently use alcohol. She reports that she quit smoking about 12 years ago. Her smoking use included cigarettes. She started smoking about 43 years ago. She has a 62 pack-year smoking history. She has never used smokeless tobacco. She reports no history of drug use. ALLERGIES: Allergies Allergen Reactions No Known Drug Allergies MEDICATIONS: Current Outpatient Medications: aspirin 81 mg chewable tablet, Chew 1 tablet (81 mg total) and swallow in the morning., Disp: 90 tablet, Rfl: 4 atorvastatin (LIPITOR) 40 mg tablet, TAKE 1 TABLET(40 MG) BY MOUTH IN THE MORNING, Disp: 30 tablet, Rfl: 0 CALCIUM ORAL, Take 600 mg by mouth in the morning., Disp: , Rfl: carvediloL (COREG) 12.5 mg tablet, Take 1 tablet (12.5 mg total) by mouth in the morning and 1 tablet (12.5 mg total) in the evening. Take with meals. Indications: high blood pressure., Disp: , Rfl: cholecalciferol 1,000 units tablet, Take 1 tablet (1,000 Units total) by mouth in the morning., Disp: , Rfl: cyanocobalamin (vitamin B-12) 1000 MCG tablet, Take 1 tablet (1,000 mcg total) by mouth in the morning., Disp: , Rfl: docusate sodium (COLACE) 100 mg capsule, Take 1 capsule (100 mg total) by mouth in the morning and 1 capsule (100 mg total) before bedtime. Indications: constipation., Disp: , Rfl: folic acid (FOLVITE) 800 MCG tablet, Take 0.5 tablets (400 mcg total) by mouth in the morning., Disp: , Rfl: furosemide (LASIX) 40 mg tablet, Take 0.5 tablets (20 mg total) by mouth daily Indications: visible water retention., Disp: , Rfl: metFORMIN (GLUCOPHAGE) 500 mg tablet, Take 1 tablet (500 mg total) by mouth in the morning and 1 tablet (500 mg total) before bedtime., Disp: , Rfl: omega 9-dji-ezq-fish oil 100-400-1,000 mg capsule, Take 1 capsule by mouth., Disp: , Rfl: spironolactone (ALDACTONE) 100 mg tablet, Take 0.5 tablets (50 mg total) by mouth in the morning. edema., Disp: , Rfl: REVIEW OF SYSTEMS: Review of Systems Constitutional: Negative for fever. HENT: Negative for hearing loss, rhinorrhea and sore throat. Eyes: Positive for visual disturbance (Glasses). Respiratory: Negative for cough, chest tightness and shortness of breath. Cardiovascular: Negative for chest pain, leg swelling and chest discomfort. Gastrointestinal: Negative for nausea, vomiting, abdominal pain, diarrhea, constipation and abdominal distention. Genitourinary: Negative for dysuria, hematuria and difficulty urinating. Musculoskeletal: Negative for myalgias, back pain, arthralgias and neck pain. Skin: Positive for wound (Right foot). Negative for rash. Neurological: Positive for seizures (Over 10 years ago) and numbness (Right leg). Negative for dizziness and headaches. Hematological: Does not bruise/bleed easily. Psychiatric/Behavioral: Negative for agitation, behavioral problems and confusion. VITAL SIGNS: BP 118/71 Pulse 72 Temp 36.4 C (97.6 F) (Skin) Resp 16 Ht 162.6 cm (5' 4 ) Wt 62.6 kg (138 lb 0.1 oz) SpO2 100% BMI 23.69 kg/m PHYSICAL EXAM: Physical Exam Vitals reviewed. Constitutional: General: She is not in acute distress. Appearance: She is well-developed. HENT: Head: Normocephalic and atraumatic. Right Ear: External ear normal. Left Ear: External ear normal. Nose: No rhinorrhea. Mouth/Throat: Mouth: Mucous membranes are moist. Eyes: General: No scleral icterus. Cardiovascular: Rate and Rhythm: Normal rate and regular rhythm. Heart sounds: Normal heart sounds. No murmur heard. Pulmonary: Effort: Pulmonary effort is normal. Breath sounds: Normal breath sounds. No wheezing or rhonchi. Abdominal: General: Bowel sounds are normal. Palpations: Abdomen is soft. Skin: General: Skin is warm and dry. Neurological: Mental Status: She is alert and oriented to person, place, and time. Psychiatric: Behavior: Behavior normal. PERTINENT TESTING AVAILABLE IN [facility] (WITHIN THE PAST 2 YEARS): EK12/04/2024: *Pending cardiology interpretation* Echo: Echo complete W/O contrast 12/05/2024 Interpretation Summary Left Ventricle: Left ventricle appears normal in size. There is mild concentric increased wall thickness/hypertrophy. Systolic function is normal with an ejection fraction of 55-60%. No segmental wall motion abnormalities. Normal diastolic function is present. Lateral E' is 7.72 cm/s. Medial E' is 6.96 cm/s. Aortic Valve: The aortic valve is trileaflet. The leaflets are mildly thickened. There is no regurgitation or stenosis. Mitral Valve: The leaflets are mildly thickened. There is [id number] regurgitation. There is no evidence of mitral valve stenosis. Tricuspid Valve: There is trace regurgitation. There is no evidence of tricuspid valve stenosis. RVSP estimated at <30 mmHg. Pulmonic Valve: There is trace regurgitation. There is no evidence of pulmonic valve stenosis. Echo complete W/O contrast Result Date: 12/05/2024 Left Ventricle: Left ventricle appears normal in size. There is mild concentric increased wall thickness/hypertrophy. Systolic function is normal with an ejection fraction of 55-60%. No segmental wall motion abnormalities. Normal diastolic function is present. Lateral E' is 7.72 cm/s. Medial E' is 6.96 cm/s. Aortic Valve: The aortic valve is trileaflet. The leaflets are mildly thickened. There is no regurgitation or stenosis. Mitral Valve: The leaflets are mildly thickened. There is [id number] regurgitation. There is no evidence of mitral valve stenosis. Tricuspid Valve: There is trace regurgitation. There is no evidence of tricuspid valve stenosis. RVSP estimated at <30 mmHg. Pulmonic Valve: There is trace regurgitation. There is no evidence of pulmonic valve stenosis. Stress test: Nuc stress Lexiscan 12/05/2024 Interpretation Summary Stress Function Comments: Stress ejection fraction is 78%. Perfusion Comments: Left ventricular perfusion is normal. Based on the perfusion study data, risk of cardiovascular events is low risk. The study is normal. Nuc stress Lexiscan Result Date: 12/05/2024 Stress Function Comments: Stress ejection fraction is 78%. Perfusion Comments: Left ventricular perfusion is normal. Based on the perfusion study data, risk of cardiovascular events is low risk. The study is normal. Holter: No results found. Cardiac catheterization: No results found. Carotids: No results found. Pulmonary function testing: No results found. 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 Dang on 12/13/2024. *Labs were done today in Pre-Admission Testing, please review in EPIC* LUCAS Dawson 12/10/24 [address] [facility] [employer] 12-10-2024 History and physical note Images from the original note were not included. PRE-ADMISSION TESTING HISTORY AND PHYSICAL EXAM DATE: 12/10/24 PCP: BRYSON RODRIGUEZ MD CHIEF COMPLAINT: Right foot wounds and leg numbness HISTORY OF PRESENT ILLNESS: Bernadine Bhakta, a 59 y.o. White or female, presents to [facility] for a pre-surgical H&P. The patient reports right leg numbness and right foot/toe wounds. She is followed by wound care. CT Angiogram done 11/16/2024 demonstrates: Ms. Bhakta was evaluated by Cardiology 12/04/2024 and note states Several risk factors for coronary disease. Will check a stress test to make sure he was no large areas of ischemia prior to her procedures. Results of these studies are in my note below for review. She denies chest pain, dyspnea, recent illness or fever. 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) Diabetes ([facility]) Fractures 09/12/2024 Wrist, tibia on the right Hyperlipidemia Hypertension Pre-diabetes on metformin Rash 12/10/2024 Wound right big toe, side of right foot Seizures (CMS-HCC) Last one > 10 years Visual impairment Glasses PAST SURGICAL HISTORY: Past Surgical History: Procedure Laterality Date APPENDECTOMY SECTION 1989 COLONOSCOPY N/A 05/19/2020 Performed by Mehul Zhu DO at [facility] HEMORRHOID[facility] JOINT REPLACEMENT Right 2012 HIP KNEE SURGERY Right 2022 Fixed tibia contains metal LEG SURGERY Right 2022 Tibia SOFT TISSUE CYST EXCISION LEFT CHEEK TUBAL LIGATION FAMILY HISTORY: Family History Problem Relation Age of Onset Aneurysm Mother Cancer Father UNKNOWN Diabetes Maternal Grandmother Anesthesia problems Neg Hx SOCIAL HISTORY: The patient reports that she does not currently use alcohol. She reports that she quit smoking about 12 years ago. Her smoking use included cigarettes. She started smoking about 43 years ago. She has a 62 pack-year smoking history. She has never used smokeless tobacco. She reports no history of drug use. ALLERGIES: Allergies Allergen Reactions No Known Drug Allergies MEDICATIONS: Current Outpatient Medications: aspirin 81 mg chewable tablet, Chew 1 tablet (81 mg total) and swallow in the morning., Disp: 90 tablet, Rfl: 4 atorvastatin (LIPITOR) 40 mg tablet, TAKE 1 TABLET(40 MG) BY MOUTH IN THE MORNING, Disp: 30 tablet, Rfl: 0 CALCIUM ORAL, Take 600 mg by mouth in the morning., Disp: , Rfl: carvediloL (COREG) 12.5 mg tablet, Take 1 tablet (12.5 mg total) by mouth in the morning and 1 tablet (12.5 mg total) in the evening. Take with meals. Indications: high blood pressure., Disp: , Rfl: cholecalciferol 1,000 units tablet, Take 1 tablet (1,000 Units total) by mouth in the morning., Disp: , Rfl: cyanocobalamin (vitamin B-12) 1000 MCG tablet, Take 1 tablet (1,000 mcg total) by mouth in the morning., Disp: , Rfl: docusate sodium (COLACE) 100 mg capsule, Take 1 capsule (100 mg total) by mouth in the morning and 1 capsule (100 mg total) before bedtime. Indications: constipation., Disp: , Rfl: folic acid (FOLVITE) 800 MCG tablet, Take 0.5 tablets (400 mcg total) by mouth in the morning., Disp: , Rfl: furosemide (LASIX) 40 mg tablet, Take 0.5 tablets (20 mg total) by mouth daily Indications: visible water retention., Disp: , Rfl: metFORMIN (GLUCOPHAGE) 500 mg tablet, Take 1 tablet (500 mg total) by mouth in the morning and 1 tablet (500 mg total) before bedtime., Disp: , Rfl: omega 3-pai-ovl-fish oil 100-400-1,000 mg capsule, Take 1 capsule by mouth., Disp: , Rfl: spironolactone (ALDACTONE) 100 mg tablet, Take 0.5 tablets (50 mg total) by mouth in the morning. edema., Disp: , Rfl: REVIEW OF SYSTEMS: Review of Systems Constitutional: Negative for fever. HENT: Negative for hearing loss, rhinorrhea and sore throat. Eyes: Positive for visual disturbance (Glasses). Respiratory: Negative for cough, chest tightness and shortness of breath. Cardiovascular: Negative for chest pain, leg swelling and chest discomfort. Gastrointestinal: Negative for nausea, vomiting, abdominal pain, diarrhea, constipation and abdominal distention. Genitourinary: Negative for dysuria, hematuria and difficulty urinating. Musculoskeletal: Negative for myalgias, back pain, arthralgias and neck pain. Skin: Positive for wound (Right foot). Negative for rash. Neurological: Positive for seizures (Over 10 years ago) and numbness (Right leg). Negative for dizziness and headaches. Hematological: Does not bruise/bleed easily. Psychiatric/Behavioral: Negative for agitation, behavioral problems and confusion. VITAL SIGNS: BP 118/71 Pulse 72 Temp 36.4 C (97.6 F) (Skin) Resp 16 Ht 162.6 cm (5' 4 ) Wt 62.6 kg (138 lb 0.1 oz) SpO2 100% BMI 23.69 kg/m PHYSICAL EXAM: Physical Exam Vitals reviewed. Constitutional: General: She is not in acute distress. Appearance: She is well-developed. HENT: Head: Normocephalic and atraumatic. Right Ear: External ear normal. Left Ear: External ear normal. Nose: No rhinorrhea. Mouth/Throat: Mouth: Mucous membranes are moist. Eyes: General: No scleral icterus. Cardiovascular: Rate and Rhythm: Normal rate and regular rhythm. Heart sounds: Normal heart sounds. No murmur heard. Pulmonary: Effort: Pulmonary effort is normal. Breath sounds: Normal breath sounds. No wheezing or rhonchi. Abdominal: General: Bowel sounds are normal. Palpations: Abdomen is soft. Skin: General: Skin is warm and dry. Neurological: Mental Status: She is alert and oriented to person, place, and time. Psychiatric: Behavior: Behavior normal. PERTINENT TESTING AVAILABLE IN [facility] (WITHIN THE PAST 2 YEARS): EK12/04/2024: *Pending cardiology interpretation* Echo: Echo complete W/O contrast 12/05/2024 Interpretation Summary Left Ventricle: Left ventricle appears normal in size. There is mild concentric increased wall thickness/hypertrophy. Systolic function is normal with an ejection fraction of 55-60%. No segmental wall motion abnormalities. Normal diastolic function is present. Lateral E' is 7.72 cm/s. Medial E' is 6.96 cm/s. Aortic Valve: The aortic valve is trileaflet. The leaflets are mildly thickened. There is no regurgitation or stenosis. Mitral Valve: The leaflets are mildly thickened. There is [id number] regurgitation. There is no evidence of mitral valve stenosis. Tricuspid Valve: There is trace regurgitation. There is no evidence of tricuspid valve stenosis. RVSP estimated at <30 mmHg. Pulmonic Valve: There is trace regurgitation. There is no evidence of pulmonic valve stenosis. Echo complete W/O contrast Result Date: 12/05/2024 Left Ventricle: Left ventricle appears normal in size. There is mild concentric increased wall thickness/hypertrophy. Systolic function is normal with an ejection fraction of 55-60%. No segmental wall motion abnormalities. Normal diastolic function is present. Lateral E' is 7.72 cm/s. Medial E' is 6.96 cm/s. Aortic Valve: The aortic valve is trileaflet. The leaflets are mildly thickened. There is no regurgitation or stenosis. Mitral Valve: The leaflets are mildly thickened. There is [id number] regurgitation. There is no evidence of mitral valve stenosis. Tricuspid Valve: There is trace regurgitation. There is no evidence of tricuspid valve stenosis. RVSP estimated at <30 mmHg. Pulmonic Valve: There is trace regurgitation. There is no evidence of pulmonic valve stenosis. Stress test: Nuc stress Lexiscan 12/05/2024 Interpretation Summary Stress Function Comments: Stress ejection fraction is 78%. Perfusion Comments: Left ventricular perfusion is normal. Based on the perfusion study data, risk of cardiovascular events is low risk. The study is normal. Nuc stress Lexiscan Result Date: 12/05/2024 Stress Function Comments: Stress ejection fraction is 78%. Perfusion Comments: Left ventricular perfusion is normal. Based on the perfusion study data, risk of cardiovascular events is low risk. The study is normal. Holter: No results found. Cardiac catheterization: No results found. Carotids: No results found. Pulmonary function testing: No results found. 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 Dang on 12/13/2024. *Labs were done today in Pre-Admission Testing, please review in EPIC* LUCAS Dawson 12/10/24 1015 documented in this encounter [facility] 12-10-2024 Instructions Ciera Yeung RN - 12/10/2024 9:30 AM EDT Your surgery/procedure is scheduled at [facility] on 12/13/2024 at 315p Arrival Time 115p [facility] Address: [address] [place] [address] in [address]ing [address] located on [facility]. Report to the Entrance B. Check in at the information desk the surgery. The waiting room located on the second floor. If you have any questions prior to surgery, please call Pre-Admission Clinic at [phone] between 7:30 am and 4:30 pm Tuesday through Tuesday. If you have questions the morning of surgery, please call the Pre-op Department at [phone]. Notify your SURGEON if you develop any illness such as a cold, cough, fever, sore throat, vomiting or are hospitalized between now and your surgery. Medication Instructions (Do not stop your medications without consulting the prescribing physician). Take the following medications the morning of surgery with a sip of water: Medication per vascular surgeon Diabetic or Weight loss medications: HOLD: None Take inhalers as prescribed the morning of surgery. Due to the risk associated with these medications. If these medications are not held per instruction below, your surgery is at an increased risk for cancellation. SGLT2 Medications- Hold 3 days prior to surgery: Jardiance, Empagliflozin, Farxiga, Dapagliflozin, Invokana, Canagliflozin, Trijardy, Synjardy GLP-1 Medications (Injection or Pill)- If taken daily hold day of surgery. If taken weekly, hold 1 week prior to surgery: Adlyxin, Byetta, Bydureon, Ozempic, Rybelsus,Trulicity, Victoza, Wegovy, Lixisenatide, Exenatide, Semaglutide, Dulaglutide, Liraglutide GIP/GLP-1(Injection or Pill)- If taken daily hold day of surgery. If taken weekly, hold 1 week prior to surgery: Mounjaro . Blood thinners: Please contact your prescribing physician regarding a stop/hold date for these medications. Medications such as Coumadin, Heparin, Aspirin, Plavix, Eliquis, Pradaxa Diabetics: If you take insulin, contact your prescribing doctor for instructions on how to manage this the night before and the morning of surgery. Non-steriodal Anti-Inflammatory Drugs (NSAIDS)- Hold 3 days prior to surgery unless otherwise directed by your surgeon. Vitamins/Herbal Products: You may continue to take your prescribed vitamins such as potassium, iron, vitamin B, vitamin C, or multivitamin unless specifically instructed by your surgeon to hold. STOP taking all herbal products/teas one week prior to your surgery. Marijuana: Stop marijuana 72 hours prior to surgery, stop CBD oil 48 hours prior to surgery. If you have been given bowel prep instructions by your surgeon, please call the surgeon's office with any questions about these instructions. What do I do the day of Surgery? Age 2 through adult - Stop all solids by midnight, You may have clear liquids up to 2 hours before surgery, unless otherwise instructed by your surgeon. Clear liquids are: water, sports drinks such as Gatorade or G2, or apple juice. You may NOT have: tube feedings, dairy products, alcoholic beverages, orange juice, or any liquids with solids or pulp in it. If applicable, shower again with CHG soap the morning of your surgery. In order to help prevent infection post-operatively, you may be asked to use a CHG mouthwash when you arrive to the Pre-op area. Your nurse will provide instruction the morning of. What do I need to do to prepare for surgery? If you will be going home the same day as your surgery, arrange for an adult over [address] Riding in a bus or taxi by yourself is not permitted. You should not smoke or drink alcohol 24 hours before your surgery. Alcohol thins the blood and may cause bleeding problems during surgery. Smoking increases the risk of breathing problems after surgery. Do not use lotions, creams, powders, perfume, make up, cologne or after-shaves day of surgery. Remove ALL jewelry including wedding rings, body piercings (including dermal piercing's, hair extensions that contain metal, nail belizean, make-up, and contact lens. You may brush your teeth the morning of surgery, but do not swallow the water. Wear your dentures and partial plates to the hospital (no adhesive). Shower the night the before. If applicable, use the CHG (chlorhexidine gluconate) soap or wipes. Place clean linens on your bed after showering. Do not allow pets to sleep in your bed What should I bring to the hospital? Eyeglass or contact lens case If you will be spending the night, please bring personal care items and leave them in the car until you are taken to your room after surgery. Leave ALL valuables at home. If any of these instructions conflict with those you received from the surgeon, please seek clarification from your surgeon's office. DEEP BREATHING EXERCISES This exercise helps promote good air exchange and helps to prevent pneumonia after surgery. Breathe in slowly and deeply through the nose. Hold your breath for a few seconds and then exhale slowly through the mouth. Repeat this three times and then cough.Coughing helps to clear your lungs. If you have had a surgery with an incision into your abdomen or chest, press gently against your incision with a pillow or a folded blanket when you cough. Please be aware - it may not be tiwari to cough following some types of surgeries involving the eyes, ears, sinuses and throat. Always follow your doctor's instructions. LEG EXERCISE These exercises help promote good circulation and help to prevent blood clots after surgery. Point your toes to the ceiling and then point them to the wall. Do this slowly about 15-20 times. You may also move your feet in circles. Do the exercise that is most comfortable for you. If you have had surgery involving your shoulder or arm, we recommend you move your fingers. PRACTICING We ask that you begin practicing these exercises before your surgery. After surgery try to do both exercises at least every 2 hours during the day and early evening. Surgical Site Infection Prevention What is a Surgical Site Infection (SSI)? Infection can happen to the area of the body where surgery is done. This is called a surgical site infection (SSI). A SSI does not happen very often. What are some of the things that hospitals are doing to prevent SSIs? Soap and water or alcohol hand rub are used before and after caring for each patient. Special soap is used to clean surgery workers hands and arms just before the surgery. Masks, gowns, gloves and hair covers are worn during the surgery to keep the area clean. Hair in the surgery area may be removed with clippers (not razors). A special soap that kills germs is used to clean the skin at the surgery site. Antibiotics may be given before the surgery starts. What can you do to prevent SSIs? Before surgery: You may be asked to shower or bathe with a special soap that kills germs the night before and the day of surgery. Use the soap as you were told. Place clean sheets on your bed the night before surgery and do not allow your pets in your bed. If you smoke or vape, stop or cut down. This creates a stress response in your body that increases inflammation, constricts blood vessels and deprives your tissues of oxygen. After surgery, this stress response disrupts the travel of oxygen, nutrients, and blood to your surgical site, interfering with the wound healing process. It also decreases the ability of your cells to fight infection. Ask your doctor about ways to quit. If you have high blood sugars or diabetes please talk with your doctor about having healthy blood sugar levels to promote healing. Do not shave near where you will have surgery. Shaving can irritate the skin and make it easier to get and infection. After surgery: Be sure that the doctors and nurses clean their hands before and after touching you. Be sure your family and friends clean their hands before and after visiting you. Do not be afraid to remind them. Always wash your hands before touching your incisional area. * Care for your wound at home as told by your doctor or nurse * Call your doctor right away if you have fever, redness, increased pain, or drainage at the surgery site. Can SSIs be treated? Antibiotics are used to treat SSI. Some patients may need another surgery to treat the infection. The doctor will discuss treatment options with you. Further questions? Contact the doctor, nurse or the Infection Prevention and Control department if you have any questions. PATIENT RIGHTS AND RESPONSIBILITIES As a patient at [facility], you have the right to: Receive medical care and be informed of who is taking care of you Be treated with dignity and respect Have a family member/independent sales representative of choice and your physician notified of your admission Receive information and actively participate in decisions about your care and treatment Refuse care, treatment and services Decide who may provide your support and speak for you Access faith and spiritual services Participate in ethical issues and questions about your care Receive private and confidential care Have appropriate assessment and management of your pain Know guest visitation restrictions or limitations Have an advance directive Access protective services Consent or refuse to participate in research studies or production or recordings, films or other images Have resolution of your complaints Receive information of hospital charges and payment methods Patient/patient independent sales representative responsibilities are to: Provide information about health status to facilitate care, treatment and services Follow the treatment, plan, keep appointments and speak up when you do not understand the plan Respect the rights of other patients and healthcare personnel Follow organizational rules and regulations that support quality care and a safe environment Fulfill financial obligations as promptly as possible Bathing Before Surgery- Patients greater than 2 months of age You can help to lower your chance of infection at the site of your surgery by showering or bathing with a special soap called chlorhexidine gluconate (CHG). Germs live on your skin. This special soap will help lower the amount of germs so they do not get into your surgery site. Special points to know: Do not use this soap if you know that you are allergic to CHG. Shower or bathe with CHG the night before and the morning of surgery. Do not shave the area of your body where the surgery will be done within 7 days of surgery. The CHG may make your skin a little dry, but do not use lotion. Steps for Bathing: Wash your hair as usual with your normal shampoo. Rinse your hair and body well after you shampoo to get rid all of the shampoo. Wash gently with the CHG from the neck down, but do not scrub the skin to hard. Be sure to wash the area of your surgery very well. If showering, turn the water off while washing and then turn the water back onto rinse. Do not get CHG in the genital (private) area. Do not get CHG in the eyes, ears, nose or mouth. (If the soap gets into the eyes, flush them immediately with water). Do not wash with regular soap after CHG is used. Pat skin dry with a soft, clean towel. Patient should sleep in freshly laundered night clothes and report for surgery in clean clothes. Place freshly laundered linens on your bed after bathing with wipes or soap. Do not allow pets in your bed documented in this encounter [facility] 12-04-2024 History of Present illness Narrative Images from the original note were not included. Name: Bernadine Bhakta : 1965 Gender: female PCP: BRYSON RODRIGUEZ MD Age: 59 y.o. PCP Encounter Date: 12/04/24 CHIEF COMPLAINT: Subjective Bernadine Bhakta is a 59 y.o. female With heavy cigarette smoking quitting 8 years ago who is here with nonhealing ulcers right lower extremity of the foot. She is being looked at for possible right femoral endarterectomy or other procedures after angiography. Other cardiac risk factors include hypertension hyperlipidemia. The patient denies any chest pain but is not active. She claudication with only a minimum of activity or walking. She reports she does get some dyspnea exertion but does not walk that far until her legs hurt Heavy alcohol in the past quit a year ago. Had ascites and elevated liver function test. High-dose Aldactone and Lasix have been giving for ascites in the past. She continues on those medications. ROS As above in the HPI PAST MED/SURG HISTORY: Past Medical History: Diagnosis Date Anemia Hyperlipidemia Past Surgical History: Procedure Laterality Date APPENDECTOMY SECTION 1989 COLONOSCOPY N/A 05/19/2020 Performed by Mehul Zhu DO at [facility] HEMORRHOIDECTOMY JOINT REPLACEMENT Right HIP KNEE SURGERY Right LEG SURGERY Right SOFT TISSUE CYST EXCISION LEFT CHEEK TUBAL LIGATION Social History Socioeconomic History Marital status: Spouse name: Not on file Number of children: Not on file Years of education: Not on file Highest education level: Not on file Occupational History Not on file Tobacco Use Smoking status: Former Current packs/day: 2.00 Average packs/day: 2.0 packs/day for 27.0 years (54.0 ttl pk-yrs) Types: Cigarettes Smokeless tobacco: Never Vaping Use Vaping status: Never Used Substance and Sexual Activity Alcohol use: Not Currently Drug use: No Sexual activity: Defer Other Topics Concern Caffeine Use Yes Social History Narrative Not on file Social Drivers of Health Financial Resource Strain: Not on file Food Insecurity: No Food Insecurity (11/29/2024) Hunger Screening Food Insecurity - Worry: Never True Food Insecurity - Inability: Never True Transportation Needs: Not on file Physical Activity: Not on file Stress: Not on file Social Connections: Not on file Interpersonal Safety: Unknown (08/11/2023) Received from [facility] Safety & Environment Fear of Current or Ex-Partner: Not on file Emotionally Abused: Not on file Physically Abused: Not on file Sexually Abused: Not on file Physically or Sexually Abused: Not on file Housing Instability: Not on file FAMILY HISTORY: Family History Problem Relation Age of Onset Aneurysm Mother Cancer Father UNKNOWN Diabetes Maternal Grandmother CURRENT MEDICATIONS: Current Outpatient Medications: aspirin 81 mg chewable tablet, Chew 1 tablet (81 mg total) and swallow in the morning., Disp: 90 tablet, Rfl: 4 atorvastatin (LIPITOR) 40 mg tablet, TAKE 1 TABLET(40 MG) BY MOUTH IN THE MORNING, Disp: 30 tablet, Rfl: 0 CALCIUM ORAL, Take 600 mg by mouth in the morning., Disp: , Rfl: carvediloL (COREG) 12.5 mg tablet, Take 1 tablet (12.5 mg total) by mouth in the morning and 1 tablet (12.5 mg total) in the evening. Take with meals., Disp: , Rfl: cholecalciferol 1,000 units tablet, Take 1 tablet (1,000 Units total) by mouth in the morning., Disp: , Rfl: cyanocobalamin (vitamin B-12) 1000 MCG tablet, Take 100 mcg by mouth in the morning., Disp: , Rfl: docusate sodium (COLACE) 100 mg capsule, Take 1 capsule (100 mg total) by mouth in the morning and 1 capsule (100 mg total) before bedtime., Disp: , Rfl: folic acid (FOLVITE) 800 MCG tablet, Take 0.5 tablets (400 mcg total) by mouth in the morning., Disp: , Rfl: furosemide (LASIX) 40 mg tablet, Take 1 tablet (40 mg total) by mouth daily., Disp: , Rfl: metFORMIN (GLUCOPHAGE) 500 mg tablet, Take 1 tablet (500 mg total) by mouth in the morning and 1 tablet (500 mg total) before bedtime., Disp: , Rfl: omega 4-wwy-jew-fish oil 100-400-1,000 mg capsule, Take 1 capsule by mouth., Disp: , Rfl: spironolactone (ALDACTONE) 100 mg tablet, Take 1 tablet (100 mg total) by mouth in the morning., Disp: , Rfl: ALLERGIES: Allergies as of 12/04/2024 - Reviewed 12/04/2024 Allergen Reaction Noted No known drug allergies 09/14/2016 VITALS: Vitals: 12/04/24 1142 BP: 118/80 Pulse: 71 Resp: 16 SpO2: 97% Admit Weight: Weight: 61.7 kg (136 lb) Wt Readings from Last 3 Encounters: 12/04/24 61.7 kg (136 lb) 11/29/24 63.5 kg (140 lb) 11/01/24 68 kg (149 lb 14.6 oz) Body mass index is 23.34 kg/m . PHYSICAL EXAM: Physical Exam General: alert, active, in no acute distress. A and O x 3 Neck: Supple,No JVP or HJR Lungs: Clear to A and P Heart: Normal PMI. regular rate and rhythm, normal S1, S2, Soft aortic flow murmur Neuro: normal without focal findings Back/Spine: back straight, no defects Musculoskeletal: moves all extremities equally, full range of motion No pulses in the PT or DP region. LAB REVIEW: CBC: Lab Results Component Value Date WBC 8.4 03/30/2015 HGB 11.6 (L) 03/30/2015 HCT 34.7 (L) 03/30/2015 MCV 106.6 (H) 03/30/2015 PLT 256 03/30/2015 BMP: Lab Results Component Value Date CALCIUM 9.7 03/30/2015 K 2.9 (L) 03/30/2015 CO2 24 03/30/2015 CL 97 (L) 03/30/2015 BUN 12 03/30/2015 CREATININE 0.73 11/15/2024 CREATININE 0.94 03/30/2015 LIPIDS: No results found for: CHOL No results found for: HDL No results found for: LDLCALC No results found for: TRIG ASSESSMENT/PLAN/DISCUSSION 1. Preop cardiovascular exam 2. Primary hypertension Several risk factors for coronary disease. Will check a stress test to make sure he was no large areas of ischemia prior to her procedures. Check an echo to assess LV function. Cut Lasix to 20 mg a day and Aldactone to 50 mg a day for now. Plans for further adjustment of medications after testing is completed. Orders Placed This Encounter Procedures POCT EKG Orders Placed or Reconciled This Encounter Medications omega 8-ceo-aox-fish oil 100-400-1,000 mg capsule Sig: Take 1 capsule by mouth. folic acid (FOLVITE) 800 MCG tablet Sig: Take 0.5 tablets (400 mcg total) by mouth in the morning. cholecalciferol 1,000 units tablet Sig: Take 1 tablet (1,000 Units total) by mouth in the morning. CALCIUM ORAL Sig: Take 600 mg by mouth in the morning. Medications Discontinued During This Encounter Medication Reason coconut oil 1,000 mg capsule Patient Stopped On Own calcium carbonate-vitamin D3 (CALCIUM 500 + D) 500 mg(1,250mg) -200 units per tablet Patient Stopped On Own psyllium (METAMUCIL) 0.52 gram capsule Patient Stopped On Own Smoking: Prior to leaving the office all patients are questioned whether or not they are smokers and if so they are counseled the necessity to quit, the benefits of quitting, the treatment options available to them Follow up: Total time spent was 30 minutes which did not include [id number] contact with the patient: Preparing to see the patient (e.g., review of tests) Obtaining and/or reviewing separately obtained history Referring and communicating with other health child care associate (not separately reported) Documenting clinical information in the electronic or other health record Independently interpreting results (not separately reported) and communicating results to the patient/family/caregiver The note was completed using EMR. Every effort was made to ensure accuracy; however, inadvertent computerized senior online marketing manager errors may be present. CARDIOVASCULAR STUDIES: EKG: No results found. ECHO: No results found. Stress Test: No results found. Cath: No results found. 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 documented in this encounter [facility] 11-29-2024 History of Present illness Narrative Images from the original note were not included. To: BRYSON RODRIGUEZ MD HPI: Bernadine Bhakta is a 59 y.o. 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 She had a PVR and IVY that shows significant occlusive disease and CTA that shows common femoral occlusive disease with SFA stenotic disease. Her gangrene is dry.. Review of Systems: Review of Systems Constitutional: Negative. HENT: Negative. Respiratory: Negative. Cardiovascular: Negative. Gastrointestinal: Negative. Endocrine: Negative. Genitourinary: Negative. Musculoskeletal: Negative. Skin: Negative. Neurological: Negative. Hematological: Negative. Medications: Current Outpatient Medications on File Prior to Visit Medication Sig Dispense Refill aspirin 81 mg chewable tablet Chew 1 tablet (81 mg total) and swallow in the morning. 90 tablet 4 calcium carbonate-vitamin D3 (CALCIUM 500 + D) 500 mg(1,250mg) -200 units per tablet Take 1 tablet by mouth in the morning and 1 tablet in the evening. Take with meals. carvediloL (COREG) 12.5 mg tablet Take 1 tablet (12.5 mg total) by mouth in the morning and 1 tablet (12.5 mg total) in the evening. Take with meals. cyanocobalamin (vitamin B-12) 1000 MCG tablet Take 100 mcg by mouth in the morning. docusate sodium (COLACE) 100 mg capsule Take 1 capsule (100 mg total) by mouth in the morning and 1 capsule (100 mg total) before bedtime. furosemide (LASIX) 40 mg tablet Take 1 tablet (40 mg total) by mouth daily. metFORMIN (GLUCOPHAGE) 500 mg tablet Take 1 tablet (500 mg total) by mouth in the morning and 1 tablet (500 mg total) before bedtime. psyllium (METAMUCIL) 0.52 gram capsule Take 1 capsule (0.52 g total) by mouth in the morning. spironolactone (ALDACTONE) 100 mg tablet Take 1 tablet (100 mg total) by mouth in the morning. coconut oil 1,000 mg capsule Take by mouth. (Patient not taking: Reported on 11/29/2024) No current facility-administered medications on file prior to visit. Past Medical History: Past Medical History: Diagnosis Date Anemia Hyperlipidemia Past Surgical History: Past Surgical History: Procedure Laterality Date APPENDECTOMY SECTION 1989 COLONOSCOPY N/A 05/19/2020 Performed by Mehul Zhu DO at [facility] HEMORRHOIDECTOMY JOINT REPLACEMENT Right HIP KNEE SURGERY Right LEG SURGERY Right SOFT TISSUE CYST EXCISION LEFT CHEEK TUBAL LIGATION Social and Family History: Social History Socioeconomic History Marital status: Spouse name: Not on file Number of children: Not on file Years of education: Not on file Highest education level: Not on file Occupational History Not on file Tobacco Use Smoking status: Former Current packs/day: 2.00 Average packs/day: 2.0 packs/day for 27.0 years (54.0 ttl pk-yrs) Types: Cigarettes Smokeless tobacco: Never Substance and Sexual Activity Alcohol use: Yes Comment: social Drug use: No Sexual activity: Defer Other Topics Concern Not on file Social History Narrative Not on file Social Drivers of Health Financial Resource Strain: Not on file Food Insecurity: No Food Insecurity (11/29/2024) Hunger Screening Food Insecurity - Worry: Never True Food Insecurity - Inability: Never True Transportation Needs: Not on file Physical Activity: Not on file Stress: Not on file Social Connections: Not on file Interpersonal Safety: Not on file Housing Instability: Not on file Family History Problem Relation Age of Onset Aneurysm Mother Cancer Father UNKNOWN Diabetes Maternal Grandmother Recent Labs: Recent and relative labs were reviewed and interpreted and contributed to the assessment and plan below. Vitals: BP 128/72 (BP Site: Right Arm, BP Postition: Sitting, BP CUFF SIZE: M (9-13 inches)) Pulse 70 Temp 36.2 C (97.1 F) (Temporal) Ht 162.6 cm (5' 4 ) Wt 63.5 kg (140 lb) SpO2 98% BMI 24.03 kg/m Body mass index is 24.03 kg/m . Physical Exam: Physical Exam Constitutional: Appearance: Normal appearance. HENT: Head: Normocephalic and atraumatic. Mouth/Throat: Mouth: Mucous membranes are moist. Eyes: Extraocular Movements: Extraocular movements intact. Pupils: Pupils are equal, round, and reactive to light. Cardiovascular: Rate and Rhythm: Normal rate and regular rhythm. Pulmonary: Effort: Pulmonary effort is normal. Breath sounds: Normal breath sounds. Abdominal: General: Abdomen is flat. Bowel sounds are normal. Palpations: Abdomen is soft. Musculoskeletal: General: Normal range of motion. Cervical back: Normal range of motion. Skin: General: Skin is warm and dry. Neurological: General: No focal deficit present. Mental Status: She is alert and oriented to person, place, and time. Mental status is at baseline. Psychiatric: Mood and Affect: Mood normal. Behavior: Behavior normal. Thought Content: Thought content normal. Judgment: Judgment normal. 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 Bernadine was seen today for critical limb ischemia of right lower extremity with gangre. 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 This note was created with the assistance of a speech recognition program. While intending to generate a timely document that accurately reflects the content of the visit, no guarantee can be provided that every grammatical or spelling mistake has been or will be identified or corrected. Thank you for your understanding. documented in this encounter [facility] 11-05-2024 History of Present illness Narrative Associated Problem(s): Impaired glucose tolerance No Tobacco use Follow ADA 1800 diet [...] and importance of healthy diet and exercise. 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 Ibarra Images from the original note were not included. Subjective Patient ID: Bernadine Bhakta is a 58 y.o. female who presents for Annual Exam. Pt is here for her annual visit Pt states her nose bleeds are getting worse Had early cirrosis and lost 20lbs Current Outpatient Medications on File Prior to Visit Medication Sig Dispense Refill aspirin 81 MG chewable tablet CHEW 1 TABLET AND SWALLOW IN THE MORNING atorvastatin (Lipitor) 40 MG tablet Take 40 mg by mouth in the morning. calcium citrate 1040 MG tablet Take 2 tablets by mouth in the morning and 2 tablets in the evening and 2 tablets before bedtime. carvedilol (Coreg) 3.125 MG tablet Take 3.125 mg by mouth in the morning and 3.125 mg before bedtime. cholecalciferol (Vitamin D-3) 50 MCG (2000 UT) capsule Take 1 capsule by mouth 1 (one) time each day at the same time. cyanocobalamin (Vitamin B-12) 100 MCG tablet Take 1 tablet by mouth in the morning. docusate sodium (Colace) 100 MG capsule Take 1 capsule by mouth Daily as needed for constipation. furosemide (Lasix) 40 MG tablet Take 40 mg by mouth Daily Glucose Blood (Blood Glucose Test Strips 333) strip 1 strip by In Vitro route Daily 100 strip 3 Lancets 30G misc 1 each Daily 100 each 3 metFORMIN (Glucophage) 500 MG tablet Take 1 tablet (500 mg) by mouth in the morning and 1 tablet (500 mg) in the evening. Take with meals. 60 tablet 11 Multiple Vitamin (Multi Vitamin) tablet Take 1 tablet by mouth 1 (one) time each day at the same time. omega-3 (Fish Oil) 1000 MG capsule Take 1 capsule by mouth 1 (one) time each day at the same time. spironolactone (Aldactone) 100 MG tablet Take 100 mg by mouth Daily [DISCONTINUED] potassium chloride (Klor-Con) 20 MEQ packet Take 20 mEq by mouth Daily 100 packet 0 No current facility-administered medications on file prior to visit. I have reviewed and reconciled the history and medication list with the patient today. No Known Allergies Social History Tobacco Use Smoking status: Former Current packs/day: 0.00 Types: Cigarettes Quit date: 2017 Years since quittin.3 Smokeless tobacco: Never Vaping Use Vaping status: [...] KNEE SURGERY 2012 ORIF FEMUR FRACTURE 01/08/2022 US GUIDED ABDOMINAL PARACENTESIS 03/01/2024 US GUIDED ABDOMINAL PARACENTESIS Visit Vitals BP 98/64 Pulse 81 Ht 5' 4 Wt 138 lb SpO2 98% BMI 23.69 kg/m Smoking Status Former BSA 1.68 m Review of Systems Constitutional: Negative for chills, fatigue, fever and unexpected weight change. Respiratory: Negative for cough. Cardiovascular: Negative for chest pain. Gastrointestinal: Negative for abdominal pain, blood in stool, constipation, diarrhea, nausea and vomiting. Genitourinary: Negative for dysuria, enuresis, frequency and hematuria. Musculoskeletal: Negative for back pain. Neurological: Negative for dizziness, tremors, syncope, facial asymmetry and speech difficulty. Psychiatric/Behavioral: Negative for agitation, behavioral problems, confusion and dysphoric mood. The patient is not nervous/anxious. Objective Physical Exam Constitutional: General: She is not in acute distress. Appearance: Normal appearance. HENT: Head: Normocephalic. Cardiovascular: Rate and Rhythm: Normal rate and regular rhythm. Pulses: Normal pulses. Pulmonary: Effort: Pulmonary effort is normal. No respiratory distress. Breath sounds: Normal breath sounds. Musculoskeletal: Right lower leg: No edema. Left lower leg: No edema. Neurological: General: No focal deficit present. Mental Status: She is alert and oriented to person, place, and time. Psychiatric: Mood and Affect: Mood normal. Office Visit on 11/05/2024 Component Date Value Ref Range Status Hemoglobin A1C 11/05/2024 5.4 Final Assessment/Plan Problem List Items Addressed This Visit Hypertriglyceridemia (CMS/HCC) This is a chronic medical condition that is stable since last assessment. No changes in treatment are suggested at this time. Continue Current meds. Labs ordered Relevant Orders CBC and differential Comprehensive metabolic panel Lipid panel Impaired glucose tolerance Alcoholic cirrhosis of liver with ascites (CMS/HCC) Sees Dr. Ibarra Epistaxis, recurrent - Primary Refer to ENT [facility] Relevant Orders Ambulatory referral to ENT Benign essential hypertension (CMS/HCC) Our specific goals, for your hypertension, is [...] taking them as prescribed. 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 Associated Problem(s): Hypertriglyceridemia (CMS/HCC) This is a chronic medical condition that is stable since last assessment. No changes in treatment are suggested at this time. Continue Current meds. Labs ordered Associated Problem(s): Annual physical exam Colonoscopy every 10 years or Cologuard every [...] Ultrasound of Aorta to screen for Anuerysm Associated Problem(s): Benign essential hypertension (CMS/HCC) Our specific goals, for your hypertension, is [...] taking them as prescribed. DASH diet handouts Associated Problem(s): Epistaxis, recurrent Refer to ENT [facility] documented in this encounter [facility] 11-02-2024 Miscellaneous Notes Received a call from [facility] stating upcoming testing is authorized CT AB Aorta from 11/02/24 to 12/01/24 and auth is [id number] and u/s upper lower same dates auth [id number] documented in this encounter [facility] 11-02-2024 Telephone encounter Note Received a call from [facility] stating upcoming testing is authorized CT AB Aorta from 11/02/24 to 12/01/24 and auth is [id number] and u/s upper lower same dates auth [id number] [facility] 11-01-2024 Evaluation + Plan note Associated Problem(s): 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 documented in this encounter [facility] 11-01-2024 History of Present illness Narrative Images from the original note were not included. To: BRYSON RODRIGUEZ MD HPI: Bernadine Bhakta is a 58 y.o. female with Right lower extremity critical limb ischemia with dry gangrene of the right great toe and Part of second toe. She does not have testing. She follow-up with the wound care clinic. She does not smoke she is ex-smoker she is an ex drinker as well.. Review of Systems: Review of Systems Constitutional: Negative. HENT: Negative. Respiratory: Negative. Cardiovascular: Negative. Gastrointestinal: Negative. Endocrine: Negative. Genitourinary: Negative. Musculoskeletal: Negative. Skin: Negative. Neurological: Negative. Hematological: Negative. Medications: Current Outpatient Medications on File Prior to Visit Medication Sig Dispense Refill calcium carbonate-vitamin D3 (CALCIUM 500 + D) 500 mg(1,250mg) -200 units per tablet Take 1 tablet by mouth in the morning and 1 tablet in the evening. Take with meals. carvediloL (COREG) 12.5 mg tablet Take 1 tablet (12.5 mg total) by mouth in the morning and 1 tablet (12.5 mg total) in the evening. Take with meals. coconut oil 1,000 mg capsule Take by mouth. cyanocobalamin (vitamin B-12) 1000 MCG tablet Take 100 mcg by mouth in the morning. docusate sodium (COLACE) 100 mg capsule Take 1 capsule (100 mg total) by mouth in the morning and 1 capsule (100 mg total) before bedtime. furosemide (LASIX) 40 mg tablet Take 1 tablet (40 mg total) by mouth daily. metFORMIN (GLUCOPHAGE) 500 mg tablet Take 1 tablet (500 mg total) by mouth in the morning and 1 tablet (500 mg total) before bedtime. psyllium (METAMUCIL) 0.52 gram capsule Take 1 capsule (0.52 g total) by mouth in the morning. spironolactone (ALDACTONE) 100 mg tablet Take 1 tablet (100 mg total) by mouth in the morning. No current facility-administered medications on file prior to visit. Past Medical History: Past Medical History: Diagnosis Date Anemia Hyperlipidemia Past Surgical History: Past Surgical History: Procedure Laterality Date APPENDECTOMY SECTION 1989 COLONOSCOPY N/A 05/19/2020 Performed by Mehul Zhu DO at [facility] HEMORRHOIDECTOMY JOINT REPLACEMENT Right HIP KNEE SURGERY Right LEG SURGERY Right SOFT TISSUE CYST EXCISION LEFT CHEEK TUBAL LIGATION Social and Family History: Social History Socioeconomic History Marital status: Spouse name: Not on file Number of children: Not on file Years of education: Not on file Highest education level: Not on file Occupational History Not on file Tobacco Use Smoking status: Former Current packs/day: 2.00 Average packs/day: 2.0 packs/day for 27.0 years (54.0 ttl pk-yrs) Types: Cigarettes Smokeless tobacco: Never Substance and Sexual Activity Alcohol use: Yes Comment: social Drug use: No Sexual activity: Defer Other Topics Concern Not on file Social History Narrative Not on file Social Drivers of Health Financial Resource Strain: Not on file Food Insecurity: No Food Insecurity (11/01/2024) Hunger Screening Food Insecurity - Worry: Never True Food Insecurity - Inability: Never True Transportation Needs: Not on file Physical Activity: Not on file Stress: Not on file Social Connections: Not on file Interpersonal Safety: Not on file Housing Instability: Not on file Family History Problem Relation Age of Onset Aneurysm Mother Cancer Father UNKNOWN Diabetes Maternal Grandmother Recent Labs: Recent and relative labs were reviewed and interpreted and contributed to the assessment and plan below. Vitals: BP 126/64 (BP Site: Left Arm, BP Postition: Sitting, BP CUFF SIZE: M (9-13 inches)) Pulse 78 Temp 36.7 C (98 F) (Temporal) Resp 18 Ht 164.5 cm (5' 4.76 ) Wt 68 kg (149 lb 14.6 oz) SpO2 97% BMI 25.13 kg/m Body mass index is 25.13 kg/m . Physical Exam: Physical Exam Constitutional: Appearance: Normal appearance. HENT: Head: Normocephalic and atraumatic. Mouth/Throat: Mouth: Mucous membranes are moist. Eyes: Extraocular Movements: Extraocular movements intact. Pupils: Pupils are equal, round, and reactive to light. Cardiovascular: Rate and Rhythm: Normal rate and regular rhythm. Pulmonary: Effort: Pulmonary effort is normal. Breath sounds: Normal breath sounds. Abdominal: General: Abdomen is flat. Bowel sounds are normal. Palpations: Abdomen is soft. Musculoskeletal: General: Normal range of motion. Cervical back: Normal range of motion. Skin: General: Skin is warm and dry. Neurological: General: No focal deficit present. Mental Status: She is alert and oriented to person, place, and time. Mental status is at baseline. Psychiatric: Mood and Affect: Mood normal. Behavior: Behavior normal. Thought Content: Thought content normal. Judgment: Judgment normal. 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 Bernadine was seen today for poor circulation. few ulcers on right foot (near toes). 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 While intending to generate a timely document that accurately reflects the content of the visit, no guarantee can be provided that every grammatical or spelling mistake has been or will be identified or corrected. Thank you for your understanding. documented in this encounter [facility] 10-22-2024 Telephone encounter Note Pt ins does not cover metformin osm tabs , but they do cover regular metformin please advise [facility] 10-22-2024 Miscellaneous Notes Pt ins does not cover metformin osm tabs , but they do cover regular metformin please advise documented in this encounter [facility] 10-15-2024 History of Present illness Narrative Images from the original note were not included. HISTORY OF PRESENT ILLNESS: FRACTURE VISIT Bernadine Kwong Adamvinger is an 58 y.o. @ female EST PT S/P (R) WRIST FX 09/12/24 (4WKS 5DAYS) - SAC X 4WKS- CAST REMOVED XRAY RT WRIST TODAY EPIC 10/15/24 XRAY EPIC 09/17/24 XRAY EPIC 09/13/24 DOING WELL- DENIES PAIN- CAST REMOVED WITHOUT DIFFICULTY RT HANDED. RODRIGO: HAD A FALL AND CAUGHT HERSELF WITH (R) HAND 09/12/24 ALLERGIES: No Known Allergies HOME MEDICATIONS: Current Outpatient Medications Medication Instructions calcium citrate 1040 MG tablet 2 tablets, Oral, 3 times daily carvedilol (COREG) 3.125 mg, 2 times daily cholecalciferol (Vitamin D-3) 50 MCG (1999) capsule 1 capsule, Oral, Every 24 hours cyanocobalamin (Vitamin B-12) 100 MCG tablet 1 tablet, Oral, Daily docusate sodium (Colace) 100 MG capsule 1 capsule, Oral, Daily PRN furosemide (LASIX) 40 mg, Daily Glucose Blood (Blood Glucose Test Strips 333) strip 1 strip, In Vitro, Daily Lancets 30G misc 1 each, Does not apply, Daily metFORMIN (OSM) (FORTAMET) 500 mg, Oral, 2 times daily with meals, Do not crush, chew, or split. Multiple Vitamin (Multi Vitamin) tablet 1 tablet, Oral, Every 24 hours omega-3 (Fish Oil) 1000 MG capsule 1 capsule, Oral, Every 24 hours potassium chloride (Klor-Con) 20 MEQ packet 20 mEq, Oral, Daily spironolactone (ALDACTONE) 100 mg, Daily Review of Systems XR wrist 1 or 2 views right Imaging Result: 10/15/2024: AP and lateral of the right wrist showed evidence of increased callus formation at the fracture site compared to prior x-rays. There was no acute bony process including but not limited to displacement of current fracture and/or new fracture. Impression: Healing right distal radius fracture Brian Nesbitt APRN-RAILWAY SIGNAL TECHNICIAN PHYSICAL EXAM: Right Hand Exam Tenderness Right hand tenderness location: Soreness in dorsal wrist with flexion/extension, nontender to palpation. Range of Motion Wrist Right wrist extension: 5. Right wrist flexion: 5. Muscle Strength Right wrist normal muscle strength: 3+/5. Other Erythema: absent Sensation: normal Pulse: present Comments: Able to make near full fist Procedures Orders Placed This Encounter Procedures XR wrist 1 or 2 views right Is the patient ?: No Reason for exam:: PAIN ASSESSMENT: ICD-10-CM 1. Right wrist pain M25.531 XR wrist 1 or 2 views right 2. Closed fracture of distal end of right radius with routine healing, unspecified fracture morphology, subsequent encounter S52.501D PLAN: I reviewed xray findings with patient which showed a healing right distal radius fracture. She will transition from SAC to wrist immobilizer. I recommend she work on gentle ROM of fingers and wrist. No heavy lifting, pushing pulling or high impact activity. Follow up in 4 weeks for Rck and xray. Discussed fracture care and treatment. Answered all questions. Also discussed risks for non-union/ delay healing and malunion. Questions answered in laymen terms at the bedside. The diagnosis, home exercise plan and any ongoing restrictions/ recommendations reviewed. If unable to be reached in office, I recommend evaluation at nearest Emergency Room if any symptoms worsened or new symptoms develop for requiring urgent evaluation. Brian Nesbitt APRN-RAILWAY SIGNAL TECHNICIAN documented in this encounter [facility] 09-17-2024 History of Present illness Narrative Images from the original note were not included. NAME: Bernadine Bhakta : 1965 HISTORY OF PRESENT ILLNESS: NEW PT Bernadine Bhakta is an 58 y.o. @ female. (NEW PT) - (R) WRIST INJURY, HAD A FALL AND CAUGHT HERSELF WITH (R) HAND 09/12/24 (5 DAYS). XRAY TODAY EPIC 09/17/24 XRAY EPIC 09/13/24 WEARING BRACE FROM HOME. PAIN POSTERIOR WRIST. DENIES RADIATION. DENIES PAIN IF SHE KEEPS IT STILL. NO PAIN MEDS. DENIES N/T, SWELLING. ABLE TO WIGGLE FINGERS. DOES NOT WAKE AT HS. RT HANDED. PAST MEDICAL HISTORY: Past Medical History: Diagnosis Date Anemia Cholecystitis 09/28/2017 Cholelithiasis 09/28/2017 COVID-19 Current drinker of alcohol 05/17/2017 Duodenal ulcer Personal history of other medical treatment daily drink etoh Seizure ([facility]/H[facility]) 2016 1 episode PAST SURGICAL HISTORY: Past Surgical History: Procedure Laterality Date APPENDECTOMY 1979 SECTION, LOW TRANSVERSE 1989 COLONOSCOPY 05/19/2020 ESOPHAGOGASTRODUODENOSCOPY 2018 HEMORRHOID SURGERY 2014 HIP SURGERY 2013 KNEE SURGERY 2013 ORIF FEMUR FRACTURE 01/08/2022 US GUIDED ABDOMINAL PARACENTESIS 03/01/2024 US GUIDED ABDOMINAL PARACENTESIS SOCIAL HISTORY: Social History Occupational History Not on file Tobacco Use Smoking status: Former Current packs/day: 0.00 Types: Cigarettes Quit date: 2018 Years since quittin.2 Smokeless tobacco: Never Vaping Use Vaping status: Never Used Substance and Sexual Activity Alcohol use: Not Currently Alcohol/week: 3.0 standard drinks of alcohol Types: 3 Standard drinks or equivalent per week Drug use: Never Sexual activity: Not Currently ALLERGIES: No Known Allergies HOME MEDICATIONS: Current Outpatient Medications Medication Instructions calcium citrate 1040 MG tablet 2 tablets, Oral, 3 times daily carvedilol (COREG) 3.125 mg, 2 times daily cholecalciferol (Vitamin D-3) 50 MCG (1999) capsule 1 capsule, Oral, Every 24 hours cyanocobalamin (Vitamin B-12) 100 MCG tablet 1 tablet, Oral, Daily docusate sodium (Colace) 100 MG capsule 1 capsule, Oral, Daily PRN furosemide (LASIX) 40 mg, Daily Glucose Blood (Blood Glucose Test Strips 333) strip 1 strip, In Vitro, Daily Lancets 30G misc 1 each, Does not apply, Daily metFORMIN (OSM) (FORTAMET) 500 mg, Oral, 2 times daily with meals, Do not crush, chew, or split. Multiple Vitamin (Multi Vitamin) tablet 1 tablet, Oral, Every 24 hours omega-3 (Fish Oil) 1000 MG capsule 1 capsule, Oral, Every 24 hours potassium chloride (Klor-Con) 20 MEQ packet 20 mEq, Oral, Daily spironolactone (ALDACTONE) 100 mg, Daily REVIEW OF SYSTEMS: Review of Systems Vitals: There is no height or weight on file to calculate BMI. Tobacco Use: Medium Risk (09/17/2024) Patient History Smoking Tobacco Use: Former Smokeless Tobacco Use: Never Passive Exposure: Not on file Alcohol Use: Not on file PHYSICAL EXAM: Hand/Wrist Musculoskeletal Exam Inspection Right Erythema: none Ecchymosis: mild Edema: mild Palpation Right Wrist tenderness to palpation comment: + tenderness distal radius, compartments soft, nontender over ulnar styloid or snuff box Range of Motion Range of motion additional comments: + PAIN WITH MOTION CONSISTENT WITH FRACTURE, NO EVIDENCE OF WRIST DROP, MAKES FULL FIST Strength Right Wrist Right wrist strength is normal. Strength additional comments: MOTORS HAND AND WRIST WITHIN LIMITS OF FRACTURE Neurovascular Right Right neurovascular exam is normal. Radial pulse: normal and 2+ Capillary refill: <3 sec and brisk Neurovascular additional comments: NO FOCAL DEFICITS Special Tests Right DRUJ instability: negative (DIFFICULTY TO STRESS WITH ACUTE FRACTURE) General Constitutional: appears stated age Labored breathing: no Neurological: alert and oriented x3 Skin: intact Lymphadenopathy: none IMAGING: XR wrist 1 or 2 views right Imaging Result: 09/17/2024: AP and lateral of the right wrist showed evidence of lucency through the distal radius consistent with nondisplaced distal radius fracture. There was no acute bony process including but not limited to displacement of current fracture and/or ulnar styloid fracture Impression: suspected nondisplaced right distal radius fracture Brian Nesbitt SCRATCH BRUSHER-RAILWAY SIGNAL TECHNICIAN Procedures Orders Placed This Encounter Procedures XR wrist 1 or 2 views right Order Specific Question: Is the patient ? Answer: No Order Specific Question: Reason for exam: Answer: pain ASSESSMENT: ICD-10-CM 1. Closed fracture of distal end of right radius, unspecified fracture morphology, initial encounter S52.501A 2. Right wrist pain M25.531 XR wrist 1 or 2 views right PLAN: I reviewed xray findings with the patient and believe that there is a nondisplaced distal radius fracture as patient is tender directly over area of lucency seen on xray. I discussed fracture care and treatment. Answered all questions. Also discussed risks for displacement. She was placed in SAC with 2 rolls of cast material used. I reviewed with the patient cast care and signs and symptoms of complications and what to do if any occur. The patient is advised to seek medical attention or call if any problems or concerns. She will follow up in 3-4 weeks for RCK, xray and cast removal. Questions answered in laymen terms at the bedside. The diagnosis, home exercise plan and any ongoing restrictions/ recommendations reviewed. If unable to be reached in office, I recommend evaluation at nearest Emergency Room if any symptoms worsened or new symptoms develop for requiring urgent evaluation. documented in this encounter [facility] 09-13-2024 History of Present illness Narrative Images from the original note were not included. Subjective Patient ID: Bernadine Meadowser is a 58 y.o. female who presents for No chief complaint on file.. Bernadine presents today with right wrist pain. She was putting dishes away when she lost her balance and put her hand out to stop the fall. Current Outpatient Medications on File Prior to Visit Medication Sig Dispense Refill calcium citrate 1040 MG tablet Take 2 tablets by mouth in the morning and 2 tablets in the evening and 2 tablets before bedtime. carvedilol (Coreg) 3.125 MG tablet Take 3.125 mg by mouth in the morning and 3.125 mg before bedtime. cholecalciferol (Vitamin D-3) 50 MCG (1999 UT) capsule Take 1 capsule by mouth 1 (one) time each day at the same time. cyanocobalamin (Vitamin B-12) 100 MCG tablet Take 1 tablet by mouth in the morning. docusate sodium (Colace) 100 MG capsule Take 1 capsule by mouth Daily as needed for constipation. furosemide (Lasix) 40 MG tablet Take 40 mg by mouth Daily Glucose Blood (Blood Glucose Test Strips 333) strip 1 strip by In Vitro route Daily 100 strip 3 Lancets 30G misc 1 each Daily 100 each 3 metFORMIN, OSM, (Fortamet) 500 MG 24 [...] mEq by mouth Daily 100 packet 0 spironolactone (Aldactone) 100 MG tablet Take 100 mg by mouth Daily No current facility-administered medications on file prior to visit. I have reviewed and reconciled the history and medication list with the patient today. No Known Allergies Social History Tobacco Use Smoking status: Former Current packs/day: 0.00 Types: Cigarettes Quit date: 2018 Years since quittin.2 Smokeless tobacco: Never Vaping Use Vaping status: [...] 1990 COLONOSCOPY 05/19/2020 ESOPHAGOGASTRODUODENOSCOPY 2018 HEMORRHOID SURGERY 2014 HIP SURGERY 2013 KNEE SURGERY 2013 ORIF FEMUR FRACTURE 01/08/2022 US GUIDED ABDOMINAL PARACENTESIS 03/01/2024 US GUIDED ABDOMINAL PARACENTESIS Visit Vitals Smoking Status Former Review of Systems Constitutional: Negative. HENT: Negative. Eyes: Negative. Respiratory: Negative. Cardiovascular: Negative. Gastrointestinal: Negative. Genitourinary: Negative. Musculoskeletal: Had a fall and now has continued Right wrist pain. Skin: Negative. Neurological: Negative. Psychiatric/Behavioral: Negative. Hematological: Negative. Endocrine: Negative. Allergic/Immunologic: Negative. Objective Physical Exam Vitals reviewed. Constitutional: Appearance: Normal appearance. HENT: Head: Normocephalic and atraumatic. Right Ear: External ear normal. Left Ear: External ear normal. Nose: Nose normal. Mouth/Throat: Mouth: Mucous membranes are moist. Eyes: Conjunctiva/sclera: Conjunctivae normal. Cardiovascular: Rate and Rhythm: Normal rate and regular rhythm. Heart sounds: Normal heart sounds. Pulmonary: Effort: Pulmonary effort is normal. Breath sounds: Normal breath sounds. Musculoskeletal: General: Swelling, tenderness and signs of injury present. Comments: Redness, mild swelling at the dorsal aspect of the right wrist, ROM limited dt pain Skin: General: Skin is warm and dry. Neurological: General: No focal deficit present. Mental Status: She is alert and oriented to person, place, and time. Psychiatric: Mood and Affect: Mood normal. Behavior: Behavior normal. Thought Content: Thought content normal. Judgment: Judgment normal. Assessment/Plan 1. Contusion of right wrist, initial encounter (Primary) The pt presents following a fall at home. She has continued right wrist pain today. She does have mild redness and swelling at the volar aspect of the wrist. No bruising is noted. We discussed obtaining an xray and possible ortho referral depending on the result. She is advised to continue tylenol prn as directed, use of ice to the area, resting the area and elevating as tolerated. 2. Right wrist pain - XR wrist 3+ views right; Future No follow-ups on file. documented in this encounter [facility] 09-13-2024 Instructions Ruby Robledo NP - 09/13/2024 9:30 AM EDT Xray right wrist added today. documented in this encounter [facility] 07-26-2024 History of Present illness Narrative Associated Problem(s): Cellulitis and abscess [...] Types: Cigarettes Quit date: 2018 Years since quittin.1 Smokeless tobacco: Never Vaping [...] Past Surgical History: Procedure Laterality Date APPENDECTOMY 1980 SECTION, LOW TRANSVERSE 1990 COLONOSCOPY 05/19/2020 ESOPHAGOGASTRODUODENOSCOPY 2018 HEMORRHOID SURGERY 2013 HIP SURGERY 2012 KNEE SURGERY 2012 ORIF FEMUR FRACTURE 01/08/2022 US GUIDED ABDOMINAL [...] follow-ups on file. documented in this encounter [facility] 06-28-2024 Evaluation note Diagnosis Onset Date Resolution Alcoholic cirrhosis acute Janua ry 2024 1:42pm Ascites acute June 28 025 1:42pm Elevated liver enzymes acute Ja nuary 2024 1:42pm History of alcohol abuse acute June 28 1:42pm [facility] Work Phone: 1(628) 409-927811-12-2024 [place] [address] EGD Procedure Note Signed Patient: Bernadine Bhakta MR#: [id number] : 1965 Acct:[id number] Age/Sex: 58 / F Adm Date: 4 Loc: Room: Type: [facility] Attending Dr: Wes Hadley MD Copies to: [...] MD 05/01/24 1303 Signed By: 05/01/24 1306 [facility]11-12-2024 [place] [address] Gastroenterology H&P Signed Patient: Bernadine Bhakta MR#: [id number] : 1965 Acct:[id number] Age/Sex: 58 / F Adm Date: 4 Loc: Room: Type: [facility] Attending Dr: Wes Hadley MD Copies to: [...] MD 05/01/24 1300 Signed By: 05/01/24 1303 [facility]09-22-2024 Telephone encounter Note* Telephone Encounter - Ruby Robledo NP - 03/11/2024 9:53 AM EDT Called the patient and discussed the use of gabapentin with the pt and her . No changes willbe made at this time. [id number] Miscellaneous Notes* Telephone Encounter - Ruby Robledo NP - 03/11/2024 9:53 AM EDT Called [...] the office. Would like a call back [phone]. documented in this encounter[facility] CenterNutsujhhub62-85-2061 Telephone encounter Note* Telephone Encounter - Irma Georges - 03/08/2024 10:33 AM EDT Patient called and would like to know if his should still be taking the Gabapentin dueto liver issues? Was asking if Ruby Garcia was back in the office. Would like a call back [phone]. [facility] [id number] Evaluation note* Diagnosis Onset Date Resolution Status Admit Date Alcoholic cirrhosis acute Septe mber 2023 1:08pm Ascites acute February 23, 2024 1:08pm Elevated liver enzymes acute Se ptember 2023 1:08pm History of alcohol abuse acute February 23, 2024 1:08pm Ascites acute February 10:51am Alcoholic cirrhosis acute Octob er 2023 1:06pm [facility] Work Phone: 1(246) 667-448208-29-2024 Telephone encounter Note* Telephone Encounter - LUCAS Reza - 02/16/2024 6:54 PM EDT Called and left a message with interventional radiology that it will be a therapeutic paracentesis and told them to call back with any further questions. [facility] CenterCzcdhjrvni69-78-0712 Miscellaneous Notes* Telephone Encounter - LUCAS Reza - 02/16/2024 6:54 PM EDT Called and left a message with interventional radiology that it will be a therapeutic paracentesis and told them to call back with any further questions. * Telephone Encounter - Lizette Osborne MA - 02/16/2024 2:38 PM EDT [facility] Radiology called wanting to know if the paracentesis was diagnostic or therapeutic, stated if diagnostic they'll need to know what its being ran for. Radiology informed Serene would be askedand they'd get a CB tomorrow morning documented in this encounterOzarks Medical CenterDcqbjmtese28-23-0712 Telephone encounter Note* Telephone Encounter - Lizette Osborne MA - 02/16/2024 2:38 PM EDT [facility] Radiology called wanting to know if the paracentesis was diagnostic or therapeutic, stated if diagnostic they'll need to know what its being ran for. Radiology informed Serene would be askedand they'd get a CB tomorrow morning [facility] [id number] History of Present illness Narrative* LUCAS Reza [...] SECTION, LOW TRANSVERSE 1990 COLONOSCOPY 05/19/2020 ESOPHAGOGASTRODUODENOSCOPY 2017 HEMORRHOID SURGERY 2013 [...] would like to have this done at [facility]. Generalized edema - furosemide (Lasix) 20 MG [...] No follow-ups on file. documented in this encounterOzarks Medical [id number] History of Present illness Narrative* LUCAS Reza - 02/08/2024 10:30 AM EDT Images from the original note were not included. Subjective Patient ID: Bernadine Meadowser is a 58 y.o. female who presents [...] Past Surgical History: Procedure Laterality Date APPENDECTOMY 1980 SECTION, LOW TRANSVERSE 1990 COLONOSCOPY 05/19/2020 ESOPHAGOGASTRODUODENOSCOPY [...] (around 02/15/2024) for Recheck. documented in this encounterOzarks Medical CenterLvidpnsyim58-30-4419 NoteMR#: [id number] [facility] Pt. Name: Bernadine Bhakta Admitted: 01/07/2022 Discharged: 01/09/2022 Date of : 1965 Physician: Beck Delacruz M.D. DISCHARGE SUMMARY PRIMARY DIAGNOSIS: Right intra-articular distal femur fracture. SECONDARY DIAGNOSES: 1. Hypertension. 2. Diabetes. 3. Hyperlipidemia. 4. Chronic anxiety disorder. DESCRIPTION OF HOSPITAL STAY: The patient is a 56-year-old female, who presented to [facility] for operative stabilization of a right [...] P/Jett Carty MD Date Trans: 02/04/2022 12:45 P/treeo TANMAY_[id number] cc: Bryson Rodriguez M.D. [employer] [address] [facility] [id number]Evaluation [facility]* Diagnosis Onset Date Resolution Status Alcoholic cirrhosis acute Ascites acute Elevated liver enzymes acute History of alcohol abuse acu te [facility] Work Phone: Evaluation note* Diagnosis Onset Date Resolution Status Alcoholic cirrhosis acute Ascites acute Elevated liver enzymes acute History of alcohol abuse acu te Ascites acute [facility] Work Phone: Evaluation note* Diagnosis Onset Date Resolution Status Alcoholic cirrhosis acute Ascites acute Elevated liver enzymes acute History of alcohol abuse acu te Ascites acute Alcoholic cirrhosis acute [facility] Work Phone: Evaluation note* Diagnosis Generalized [...] except toes [facility] Diagnosis Blister (nonthermal), right foot, sequela- Primary Cellulitis and abscess of foot Cellulitis and abscess of foot, except toes Contusion of right wrist, initial encounter- Primary Right wrist pain Pain in joint, forearm [facility] Diagnosis Blister (nonthermal), right foot, sequela- Primary Cellulitis and abscess of foot Cellulitis and abscess of foot, except toes Closed fracture of distal end of right radius, unspecified fracture morphology, initial encounter- Primary Right wrist pain Pain in joint, forearm documented in this encounter [facility]* Diagnosis Blister (nonthermal), right foot, sequela- Primary Cellulitis and abscess of foot Cellulitis and abscess of foot, except toes Right wrist pain Pain in joint, forearm Closed fracture of distal end of right radius with routine healing, unspecified fracture morphology, subsequent encounter documented in this encounter [facility] HealthcareEvaluation note* Diagnosis Blister (nonthermal), right foot, sequela- Primary Cellulitis and abscess of foot Cellulitis and abscess of foot, except toes Diabetes mellitus due to underlying condition with diabetic nephropathy, without long-term current use of insulin (CMS/HCC)- Primary documented in this encounter [facility] HealthcareEvaluation note* Diagnosis 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)- Primary [facility] encounter [facility]* Diagnosis Blister (nonthermal), right foot, sequela- Primary Cellulitis and abscess of foot Cellulitis and abscess of foot, except toes Epistaxis, recurrent- Primary Abnormal glucose tolerance test Impaired glucose tolerance test Benign essential hypertension (CMS/HCC) Essential hypertension, benign Thyroid disorder screening Screening for thyroid disorder Hypercholesterolemia (CMS/HCC) Pure hypercholesterolemia Hypertriglyceridemia (CMS/HCC) Pure hyperglyceridemia Annual physical exam Routine general medical examination at a health care facility Impaired glucose tolerance Impaired glucose tolerance test Alcoholic cirrhosis of liver with ascites (CMS/HCC) Pain in both lower extremities documented in this encounter [facility]Evaluation note* Diagnosis 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)- Primary 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)- Primary 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) documented in this encounter [facility]* Diagnosis 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)- Primary 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)- Primary 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)- Primary Preop cardiovascular exam- Primary Pre-operative cardiovascular examination Primary hypertension Unspecified essential hypertension 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) documented in this encounter [facility]* Diagnosis 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)- Primary 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)- Primary 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)- Primary 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)- Primary 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) documented in this encounter [facility]* Diagnosis 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)- Primary 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)- Primary 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)- Primary PAD (peripheral artery disease) Unspecified peripheral vascular disease documented in this encounter [facility]* Diagnosis 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)- Primary 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)- Primary 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)- Primary documented in this encounter [facility]* Diagnosis 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)- Primary 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)- Primary 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)- Primary Critical ischemia of foot (CMS-HCC)- Primary 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) documented in this encounter [facility] SystemHistory and physical note Author Wes Hadley [facility] Note Date/Time May 01, 2024 1:03pm [facility] [address] [place] [address] Gastroenterology H&P Signed Patient: Bernadine Bhakta MR#: [id number] : 1965 Acct:[id number] Age/Sex: 58 / F Adm Date: 4 Loc: Room: Type: [facility] Attending Dr: Wes Hadley MD Copies to: [...] signed by Wes Hadley MD> 05/01/24 1303 [facility] Work Phone: Hospital Discharge instructions* Attachments The following attachments cannot be sent through Care Everywhere. * Atherectomy - Angioplasty of a Noncoronary Vessel (Cymro) * Atherosclerosis (Cymro) * Gangrene Discharge Instructions ([facility]ymro) * Peripheral artery disease and claudication (Cymro) documented in [facility] encounterProBer[facility] SystemInstructionsNot on file documented in this encounterProNorth [facility] [employer] SystemInstructionsNot on file documented in this encounterProBerger Hospital SystemInstructionsNot on file documented in this encounterProBerger Hospital SystemInstructionsNot on file documented in this encounterProNorth [facility] Health SystemInstructionsNot on file documented in this encounterProBerger Hospital SystemInstructionsNot on file documented in this encounterProBerger Hospital SystemInstructionsNot on file documented in this encounterProNorth [facility] Health SystemInstructionsNot on file documented in this encounterProNorth [facility] Health SystemInstructionsNot on file documented in this encounterProBerger Hospital SystemInstructionsNot on file documented in this encounterProBerger Hospital SystemInstructionsNot on file documented in this encounterProBerger Hospital SystemReason for referral (narrative)* Misc (Routine) - Pending Review Specialty Diagnoses / Procedures Referred By Contac t Referred To Contact Procedures Wound care (specify) Theo Qureshi APRN-CNP [employer], [address] [place] [address] Phone: tel: fax: Referral ID Status Reason Start Date Expiration Date V isits Requested Visits Authorized [id number] Pending Review 12/14/2024 12/14/2025 1 1 * Misc (Routine) - Pending Review Specialty Diagnoses / Procedures Referred By Contac t Referred To Contact Procedures Wound care (specify) Theo Qureshi APRN-CNP [employer], [address] [place] [address] Phone: tel: fax: Referral ID Status Reason Start Date Expiration Date V isits Requested Visits Authorized [id number] Pending Review 12/14/2024 12/14/2025 1 1 * Misc (Routine) - Pending Review Specialty Diagnoses / Procedures Referred By Contac t Referred To Contact Procedures Hygiene Theo Qureshi APRN-CNP [employer], [address] [place] [id number] Phone: tel: fax: Referral ID Status Reason Start Date Expiration Date V isits Requested Visits Authorized [id number] Pending Review 12/14/2024 12/14/2025 1 1 * Misc (Routine) - Pending Review Specialty Diagnoses / Procedures Referred By Uyen melton Referred To Contact Procedures Adult diet Theo Qureshi APRN-CNP [address] [facility], [address] [place] [address] Phone: tel:[phone] fax: Referral ID Status Reason Start Date Expiration Date V isits Requested Visits Authorized [id number] Pending Review 12/14/2024 12/14/2025 1 1 [facility] Narrative* Auth/Cert Specialty Diagnoses / Procedures Referred By Uyen melton Referred To Contact Diagnoses 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) 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) [I70.261] Procedures ENDARTERECTOMY FEMORAL Raulito Dang MD [address] [place] [address] Phone: tel: fax: Referral ID Status Reason Start Date Expiration Date Visits Re quested Visits Authorized [id number] 1 1 [facility] [employer] [facility] Summary Purpose Family History Relationship Condition Age at Onset Recorded Date/T nilam father Malignant neoplasm Unknown Advance Directives Advance Directive Response Recorded Date/ Time Advance [...] and content) DATE CREATED AUTHOR 02/16/2022 [facility] DATE CREATED AUTHOR AUTHOR'S ORGANIZ ATION 11/03/2022 [facility] DATE CREATED AUTHOR AUTHOR'S ORGANIZ ATION 01/24/2024 [facility] DATE CREATED AUTHOR AUTHOR'S ORGANIZ ATION 07/03/2024 [facility] DATE CREATED AUTHOR AUTHOR'S ORGANIZ ATION 11/06/2024 [facility] DATE CREATED AUTHOR AUTHOR'S ORGANIZ ATION 11/07/2024 [facility] DATE CREATED AUTHOR AUTHOR'S ORGANIZ ATION 12/16/2024 [facility] DATE CREATED AUTHOR AUTHOR'S ORGANIZ ATION 02/02/2025 [facility] DATE CREATED AUTHOR AUTHOR'S ORGANIZ ATION 02/09/2025 [facility] Care Teams (unrecognized sec tion and content) Team Status: Active Member Role Status Dates Serene Zelaya NP-C Primary Care Provider Active Team Status: Inactive Member Role Status Dates Wes Hadley MD Attending Provider Active S tart: February 23, 2024 End: February 23, 2024 Ruby Robledo NP-C Referring Provider Active St art: February 23, 2024 End: February 23, 2024 Serene Zelaya NP-C Primary Care Provider Active Start: February 23, 2024 End: February 23, 2024 Team Status: Inactive Member Role Status Dates Serene Zelaya NP-C Primary Care Provider Active Start: February 28, 2024 End: February 28, 2024 Wes Hadley MD Attending Provider Active S tart: February 28, 2024 End: February 28, 2024 Team Status: Inactive Member Role Status Maren Zelaya NP-C Primary Care Provide r, Attending Provider Active Start: March 01, 2024 End: March 01, 2024 Team Status: Inactive Member Role Status Maren Zelaya NP-C Primary Care Provider Active Start: [...] Other Provider Active Start: May 01, 2024 Lumber Marker Relationship Specialty Start Date End Date Bryson Rodriguez MD [address] [place] [address] PCP - General Family Medicine 10/26/22 Lumber Marker Relationship Specialty Start Date End Date Bryson Rodriguez MD [address] [facility] [address] [place] [address] PCP - General Family Medicine 10/26/22 Lumber Marker Relationship Specialty Start Date End Date Bryson Rodriguez MD [address] [facility] [address] [place] [address] PCP - General Family Medicine 10/26/22 Lumber Marker Relationship Specialty Start Date End Date Bryson Rodriguez MD [address] [facility] [address] [place] [address] PCP - General Family Medicine 10/26/22 Team Status: Inactive Member Role Status Dates Serene Zelaya NP-C Primary Care Provider Active Start: June 28, 2024 End: June 28, 2024 Wes Hadley MD Attending Provider Active S tart: June 28, 2024 End: June 28, 2024 Lumber Marker Relationship Specialty Start Date End Date Bryson Rodriguez MD [address] [facility] [address] [place] [address] PCP - General Family Medicine 10/26/22 Lumber Marker Relationship Specialty Start Date End Date Bryson Rodriguez MD [address] [facility] [address] [place] [address] PCP - General Family Medicine 10/26/22 Lumber Marker Relationship Specialty Start Date End Date Bryson Rodriguez MD [address] [facility] [address] [place] [address] PCP - General Family Medicine 10/26/22 Lumber Marker Relationship Specialty Start Date End Date Bryson Rodriguez MD [address] [facility] [address] [place] [address] PCP - General Family Medicine 10/26/22 Lumber Marker Relationship Specialty Start Date End Date Bryson Rodriguez MD [address] [facility] [address] [place] [address] PCP - General Family Medicine 10/26/22 Lumber Marker Relationship Specialty Start Date End Date [place] [address] [place] [address] PCP - General Family Medicine 04/26/18 Lumber Marker Relationship Specialty Start Date End [place] [address] PCP - General Family Medicine 04/26/18 Lumber Marker Relationship Specialty Start Date End Date Bryson Rodriguez MD [address] [facility] [address] [place] [address] PCP - General Family Medicine 10/26/22 Lumber Marker Relationship Specialty Start Date End Date [place] [address] PCP - General Family Medicine 04/26/18 Lumber Marker Relationship Specialty Start Date End [place] [address] PCP - General Family Medicine 04/26/18 Lumber Marker Relationship Specialty Start Date End [place] [address] PCP - General Family Medicine 04/26/18 Lumber Marker Relationship Specialty Start Date End [place] [address] PCP - General Family Medicine 04/26/18 Lumber Marker Relationship Specialty Start Date End [place] [address] PCP - General Family Medicine 04/26/18 Lumber Marker Relationship Specialty Start Date End [place] [address] PCP - General Family Medicine 04/26/18 Lumber Marker Relationship Specialty Start Date End [place] [address] PCP - General Family Medicine 04/26/18 Lumber Marker Relationship Specialty Start Date End [place] [address] PCP - General Family Medicine 04/26/18 Lumber Marker Relationship Specialty Start Date End Date [place] [address] PCP - General Family Medicine 04/26/18 Lumber Marker Relationship Specialty Start Date End Date Bry[place] [address] PCP - General Family Medicine 04/26/18 Lumber Marker Relationship Specialty Start Date End Date [place] [address] PCP - General Family Medicine 04/26/18 Goals (unrecognized section and content) Goals may be documented in a n alternate sectionGoals may be documented in an alternate sectionGoals may be documented in an alternate sectionNot on filedocumented as of this encounterNot on filedocumented as of this encounterNot on filedocumented as of this encounterNot on filedocumented as of this encounterNot on filedocumented as of this encounterNot on filedocumented as of this encounterNot on filedocumented as of this encounterNot on filedocumented as of this encounterNot on filedocumented as of this encounter Reason for Visit (unrecogniz ed section and content) Reason Comments Foot Blister Right foot top blist er did pop went to ER on 07/24/24 Reason Comments Pain Reason Comments Poor Circulation. Few ulcers on right foot (near toes) Has had open wounds right great toe and right foot. Referred from wound center. 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 0209 (Given - Provid er: Rosario Bernard RN)1000 (Canceled Entry - Provider: Antoine Griffin RN)1230 (Hold - Provider: Antoine Griffin RN - Reason: Patient/family refused) aspirin EC tablet 81 mg 81 mg, oral, Daily, First dose on [place]athi 12/13/24 at 2030, Do not crush or chew. 215 (Given - Provider: Rosario Bernard RN) 0814 (Given - Provider: Antoine Griffin, BRIDGET) atorvastatin (LIPITOR) tablet 40 mg 40 mg, oral, Nightly, First dose (after last modification) on [place]athi 12/13/24 at 2200, Look-alike/sound-alike medication - verify indication for use. 2205 (Given - Provider: Rosario Bernard RN) carvediloL (COREG) tablet 12.5 mg 12.5 mg, oral, 2 times daily with meals, First dose on Tue12/13/24 at 2030, Give with meal or snack. Look-alike/sound-alike medication - verify indication for use., Indications: hypertension 2158 (Given - Provider: Rosario Bernard RN) 0813 (Given - Provider: Antoine Griffin RN) ceFAZolin (ANCEF) IVPB 2000 mg/50 mL in iso-osmotic dextrose (40 mg/mL premix) (COMPLETED) 2,000 mg, intravenous, at 100 mL/hr, Administer over 30 Minutes, Once, On Malathi 12/13/24 at 1315, For 1 dose, Pre-op, Within one hour prior to incision. For patient less than 120 kg or less. Look-alike/sound-alike medication - verify indication for use., Indication: Surgical prophylaxis 1600 (Given - Provider: PRANAV Gil) clopidogreL (PLAVIX) tablet 75 mg 75 mg, oral, Daily, First dose on Tue12/14/24 at 0900, Look-alike/sound-alike medication - verify indication for use. 0813 (Given - Provid er: Antoine Griffin RN) furosemide (LASIX) tablet 20 mg 20 mg, oral, Daily, First dose on Tue12/13/24 at 2030, Look-alike/sound-alike medication - verify indication for use., Indications: edema 2158 (Given - Provider: Rosario Bernard RN) 0813 (Given - Provider: Antoine Griffin RN) heparin (porcine) injection 5,000 Units 5,000 Units, subcutaneous, Every 8 hours scheduled, First dose on Tue12/14/24 at 0745, Look-alike/sound-alike medication - verify indication for use. Observe for bleeding. 0814 (Given - Provid er: Antoine Griffin RN)1400 (Canceled Entry - Provider: Oswaldo Valenzuela RN) sodium chloride 0.9 % bolus (COMPLETED) 1,000 mL, intravenous, at 984 mL/hr, Administer over 61 Minutes, Once, On Malathi 12/13/24 at 2330, For 1 dose 2337 (New Bag - Provider: Rosario Bernard RN) 0038 (Stop Bag - Provider: Rosario Bernard RN) sodium chloride 0.9 % bolus (COMPLETED) 500 mL, intravenous, at 968 mL/hr, Administer over 31 Minutes, Once, On Tue12/14/24 at 0100, For 1 dose 0055 (New Bag - Provider: Rosario Bernard RN)0126 (Stop Bag - Provider: Rosario Bernard RN) sodium chloride 0.9 % flush 3 mL 3 mL, intravenous, Every 12 hours scheduled, First dose on [place]athi 12/13/24 at 2100 2207 (Given - Provider: Rosario Bernard RN) 0814 (Given - Provider: Antoine Griffin RN) Continuous Medication Order 12/12/2024 12/13/2024 12/14/2024 lactated ringers infusion (CANCELED) 100 mL/hr, intravenous, Continuous, Starting on [place]athi 12/13/24 at 1330, Pre-op, If fluid restriction is not indicated, infuse at a rate up to 5 mL/kg/hr not to exceed the total replacement volume (2 ml/kg/hr) from the time NPO status was initiated. 1428 (New Bag - Provider: Riddhi Castanon RN)1540 (Stop Bag - Provider: PRANAV Gil)1541 (Restarted - Provider: PRANAV Gil)1639 (Anesthesia Volume Adjustment - Provider: PRANAV Gil)1748 (Anesthesia Volume Adjustment - Provider: PRANAV Gil)1857 (Stop Bag - Provider: PRANAV Gil) phenylephrine HCl in 0.9% NaCl (SARA-SYNEPHRINE) 20 mg/250 mL (80 mcg/mL) premix infusion 0.5-2.5 mcg/kg/min 62.6 kg (23.475-117.375 mL/hr, rounded to 23.5-117.4 mL/hr), intravenous, Continuous, Starting on Tue12/14/24 at 0200, Preferred central line administration. Max 5 mcg/kg/min with provider order. Notify prescriber if rate exceeds 2.5 mcg/kg/min. VESICANT (RED), Monitoring Goals: SBP, Monitoring Goal Direction: Greater than or Equal to, Please specify: SBP<100, Starting Dose: 0.5 mcg/kg/min, Titration Dose Range (range 0.1 to 0.5 mcg/kg/min): 0.1 to 0.5 mcg/kg/min, Titration Frequency - As Frequent As (range 1 to 3 minutes): 1 to 3 minutes, Indication: Hypotension, Sequence of Pressors - Use this medication: First, Wean Sequence: Wean First 0200 (Not Given - Provider: Elza Capone RN - Reason: Other - Comment: SBP -134) sodium chloride 0.9 % infusion 75 mL/hr, intravenous, Continuous, Starting on Tue12/14/24 at 0100, For 1 day 0100 (New Bag - Provider: Rosario Bernard RN)0237 (New Bag - Provider: Elza Capone RN)1539 (Due: Order Ending - Provider: Automatic Discharge Provider - Comment: [Order ends at this time. Document the following action when infusion is complete: Stop Bag]) PRN Medication Order 12/12/2024 12/13/2024 12/14/2024 calcium gluconate 3,000 mg in sodium chloride 0.9 % 100 mL IVPB(Linked Group 1) 3,000 mg, intravenous, at 130 mL/hr, Administer over 60 Minutes, As needed, for ionized calcium level less than 3 mg/dL, Starting on Tue12/14/24 at 0703, CALL PHYSICIAN if this dose is administered. Recheck ionized calcium 6 hours after infusion. Hold calcium replacement for phosphorus greater than 5.5 mg/dL. VESICANT (RED) calcium gluconate IVPB 1000 mg/50 mL (20 mg/mL premix)(Linked Group 1) 1,000 mg, intravenous, at 50 mL/hr, Administer over 60 Minutes, As needed, for ionized calcium level 3.5 to 4.4 mg/dL, Starting on Tue12/14/24 at 0703, Recheck ionized calcium 6 hours after infusion. Hold calcium replacement for phosphorus greater than 5.5 mg/dL. VESICANT (RED) calcium gluconate IVPB 2000 mg/100 mL (20 mg/mL premix)(Linked Group 1) 2,000 mg, intravenous, at 100 mL/hr, Administer over 60 Minutes, As needed, for ionized calcium level 3 to 3.4 mg/dL, Starting on Tue12/14/24 at 0703, Recheck ionized calcium 6 hours after infusion. Hold calcium replacement for phosphorus greater than 5.5 mg/dL. VESICANT (RED) heparin 10,000 units in 0.9% sod chl 1000 mL irrigation (bag) (CANCELED) As needed, Starting on [place] 12/13/24 at 1656, Intra-op 1656 (Given - Provider: Raulito Dang MD - Comment: 1600) magnesium sulfate IVPB 2000 mg/50 mL in iso-osmotic water (40 mg/mL premix)(Linked Group 2) 2,000 mg, intravenous, at 25 mL/hr, Administer over 120 Minutes, As needed, for magnesium level 1.7 to 1.9 mg/dL or ionized magnesium level 0.45 to 0.5 mmol/L, Starting on Tue12/14/24 at 0703, Use premix solution. Default to ionized magnesium level in cases where patient has both magnesium and ionized magnesium results. If administered, check ionized magnesium (or total magnesium if ionized magnesium unavailable) level 4 hours after infusion. 1055 (See Alternativ e - Provider: Antoine Griffin RN) magnesium sulfate IVPB 4000 mg/100 mL in iso-osmotic water (40 mg/mL premix)(Linked Group 2) 4,000 mg, intravenous, at 25 mL/hr, Administer over 240 Minutes, As needed, for magnesium level 1.6 mg/mL or less, or ionized magnesium level 0.44 mmol/L or less, Starting on Tue12/14/24 at 0703, Use premix solution. Default to ionized magnesium level in cases where patient has both magnesium and ionized magnesium results. If administered, check ionized magnesium (or total magnesium if ionized magnesium unavailable) level 4 hours after infusion. 1055 (New Bag - Prov ider: Antoine Griffin RN)1334 (Due: Stop Bag - Provider: Automatic Discharge Provider - Comment: Time automatically adjusted from order being discontinued) ondansetron (PF) (ZOFRAN) injection 4 mg 4 mg, intravenous, Every 4 hours PRN, nausea, Starting on [place] 12/13/24 at 2025, Intravenous administration preferred to be given over 2-5 minutes. oxyCODONE (ROXICODONE) immediate release tablet 2.5 mg 2.5 mg, oral, Every 4 hours PRN, moderate pain - pain scale 4-6, Starting on [facility] 12/13/24 at 1915, Look-alike/sound-alike medication - verify indication for use. Immediate release. oxyCODONE (ROXICODONE) immediate release tablet 5 mg 5 mg, oral, Every 4 hours PRN, severe pain - pain scale 7-10, Starting on [facility] 12/13/24 at 1915, Look-alike/sound-alike medication - verify indication for use. Immediate release. potassium chloride (K-TAB,KLOR-CON) CR tablet 20-40 mEq(Linked Group 3) 20-40 mEq, oral, As needed, for potassium replacement, Starting on Tue12/14/24 at 0703, Progress to oral potassium replacement when patient tolerating oral intake. If dose administered, recheck potassium level 4 hours after last dose. For potassium level 3.4 to 3.8 mmol/L and Serum Creatinine 1.2 or less=30 mEq. For potassium level 3.1 to 3.3 mmol/L and Serum Creatinine 1.2 or less=40 mEq. For potassium level 3 mmol/L or less and Serum Creatinine 1.2 or less=50 mEq. Forpotassium level 3.4 to 3.8 mmol/L and Serum Creatinine greater than 1.2=20 mEq. For potassium level 3.1 to 3.3 mmol/L and Serum Creatinine greater than 1.2=30 mEq. For potassium level 3 mmol/L or less and Serum Creatinine greater than 1.2=40 mEq. Do not crush or chew. potassium chloride (KAYCIEL) 20 mEq/15 mL solution 20-40 mEq(Linked Group 3) 20-40 mEq, oral, As needed, potassium replacement, Starting on Tue12/14/24 at 0703, Progress to oral potassium replacement when patient tolerating oral intake. If dose administered, recheck potassium level 4 hours after last dose. For potassium level 3.4 to 3.8 mmol/L and Serum Creatinine 1.2 or less=30 mEq (22.5mL). For potassium level 3.1 to 3.3 mmol/L and Serum Creatinine 1.2 or less=40 mEq (30mL). For potassium level 3 mmol/L or less and Serum Creatinine 1.2 or less=50 mEq (37.5mL). For potassium level 3.4 to 3.8 mmol/L and Serum Creatinine greater than 1.2=20 mEq (15mL). For potassium level 3.1 to 3.3 mmol/L and Serum Creatinine greater than 1.2=30 mEq (22.5mL). For potassium level 3 mmol/L or less and Serum Creatinine greater than 1.2=40 mEq (30mL). Must dilute before use - Mix in 3-8 ounces of water or juice before administration When administering in feeding tube, flush before and after per policy and monitor potassium levels potassium chloride IVPB 10 mEq/100 mL in water (0.1 mEq/mL premix)(Linked Group 4) 10 mEq, intravenous, at 100 mL/hr, Administer over 60 Minutes, As needed, for potassium replacement, Starting on Tue12/14/24 at 0703, Administer Potassium Chloride IVPB in 10 mEq increments. Maximum infusion rates: Central Line = 20 mEq/hour; Peripheral Line = 10 mEq/hour (10 mEq/100 mL). If dose administered, recheck potassium level 1 hour after infusion complete. For potassium level 3.4 to 3.8 mmol/L and Serum Creatinine 1.2 or less = 30 mEq For potassium level 3.1 to 3.3 mmol/L and Serum Creatinine 1.2 or less = 40 mEq For potassium level 3 mmol/L or less and Serum Creatinine 1.2 or less = 50 mEq For potassium level 3.4 to 3.8 mmol/L and Serum Creatinine greater than 1.2 = 20 mEq For potassium level 3.1 to 3.3 mmol/L and Serum Creatinine greater than 1.2 = 30 mEq For potassium level 3 mmol/L or less and Serum Creatinine greater than 1.2 = 40 mEq VESICANT (YELLOW) Infuse each 10 mEq over a minimum of 1 hour. potassium chloride IVPB 10 mEq/50 mL in water (0.2 mEq/mL premix)(Linked Group 4) 10 mEq, intravenous, at 50 mL/hr, Administer over 1 Hours, As needed, for potassium replacement, Starting on Tue12/14/24 at 0703, Administer Potassium Chloride IVPB in 10 mEq increments. Maximum infusion rates: Central Line = 20 mEq/hour. Administer via Central Line Only. If dose administered, recheck potassium level 1 hour after infusion complete. For potassium level 3.4 to 3.8 mmol/L and Serum Creatinine 1.2 or less = 30 mEq For potassium level 3.1 to 3.3 mmol/L and Serum Creatinine 1.2 or less = 40 mEq For potassium level 3 mmol/L or less and Serum Creatinine 1.2 or less = 50 mEq For potassium level 3.4 to 3.8 mmol/L and Serum Creatinine greater than 1.2 = 20 mEq For potassium level 3.1 to 3.3 mmol/L and Serum Creatinine greater than 1.2 = 30 mEq For potassium level 3 mmol/L or less and Serum Creatinine greater than 1.2 = 40 mEq VESICANT (YELLOW) sod phos di, mono-K phos mono (K-PHOS NEUTRAL) 250 mg tablet 2 tablet(Linked Group 5) 2 tablet, oral, As needed, for phosphorous level 2.3 mg/dL or less, Starting on Tue12/14/24 at 0703, If dose administered, recheck phosphorus level 4 hours after last dose. Look-alike/sound-alike medication - verify indication for use. Give with a full glass of water. sodium chloride 0.9 % flush 3 mL 3 mL, intravenous, As needed, line care, before and after each intermittent use, Starting on Tue12/13/24 at 202 sodium chloride 0.9% (NS) irrigation bottle (CANCELED) As needed, Starting on Tue12/13/24 at 1656, Intra-op 1656 (Given - Provider: Raulito Dang MD) sodium phosphate 20 mmol in sodium chloride 0.9 % 100 mL IVPB(Linked Group 5) 20 mmol, intravenous, at 26.7 mL/hr, Administer over 4 Hours, As needed, for phosphorous level 2.3 mg/dL or less, Starting on Tue12/14/24 at 0703, Administer over 4 hours via dedicated line(central line). If administered, recheck phosphorus level 4 hours after infusion complete. Infuse using central line access. sodium phosphate 20 mmol in sodium chloride 0.9 % 250 mL IVPB(Linked Group 5) 20 mmol, intravenous, at 42.8 mL/hr, Administer over 6 Hours, As needed, for phosphorous level 2.3 mg/dL or less, Starting on Tue12/14/24 at 0703, Administer over 6 hours via dedicated line (peripheral line). If administered, recheck phosphorus level 4 hours after infusion complete. Linked Groups Order Group 1: calcium gluconate IVPB 1000 mg/50 mL (20 mg/mL premix)Jump to med 1,000 mg, intravenous, at 50 mL/hr, Administer over 60 Minutes, As needed, for ionized calcium level 3.5 to 4.4 mg/dL, Starting on Tue12/14/24 at 0703, Recheck ionized calcium 6 hours after infusion. Hold calcium replacement for phosphorus greater than 5.5 mg/dL. VESICANT (RED) Or calcium gluconate IVPB 2000 mg/100 mL (20 mg/mL premix)Jump to med 2,000 mg, intravenous, at 100 mL/hr, Administer over 60 Minutes, As needed, for ionized calcium level 3 to 3.4 mg/dL, Starting on Tue12/14/24 at 0703, Recheck ionized calcium 6 hours after infusion. Hold calcium replacement for phosphorus greater than 5.5 mg/dL. VESICANT (RED) Or calcium gluconate 3,000 mg in sodium chloride 0.9 % 100 mL IVPBJump to med 3,000 mg, intravenous, at 130 mL/hr, Administer over 60 Minutes, As needed, for ionized calcium level less than 3 mg/dL, Starting on Tue12/14/24 at 0703, CALL PHYSICIAN if this dose is administered. Recheck ionized calcium 6 hours after infusion. Hold calcium replacement for phosphorus greater than 5.5 mg/dL. VESICANT (RED) Group 2: magnesium sulfate IVPB 2000 mg/50 mL in iso-osmotic water (40 mg/mL premix)Jump to med 2,000 mg, intravenous, at 25 mL/hr, Administer over 120 Minutes, As needed, for magnesium level 1.7 to 1.9 mg/dL or ionized magnesium level 0.45 to 0.5 mmol/L, Starting on Tue12/14/24 at 0703, Use premix solution. Default to ionized magnesium level in cases where patient has both magnesium and ionized magnesium results. If administered, check ionized magnesium (or total magnesium if ionized magnesium unavailable) level 4 hours after infusion. Or magnesium sulfate IVPB 4000 mg/100 mL in iso-osmotic water (40 mg/mL premix)Jump to med 4,000 mg, intravenous, at 25 mL/hr, Administer over 240 Minutes, As needed, for magnesium level 1.6 mg/mL or less, or ionized magnesium level 0.44 mmol/L or less, Starting on Tue12/14/24 at 0703, Use premix solution. Default to ionized magnesium level in cases where patient has both magnesium and ionized magnesium results. If administered, check ionized magnesium (or total magnesium if ionized magnesium unavailable) level 4 hours after infusion. Group 3: potassium chloride (K-TAB,KLOR-CON) CR tablet 20-40 mEqJump to med 20-40 mEq, oral, As needed, for potassium replacement, Starting on Tue12/14/24 at 0703, Progress to oral potassium replacement when patient tolerating oral intake. If dose administered, recheck potassium level 4 hours after last dose. For potassium level 3.4 to 3.8 mmol/L and Serum Creatinine 1.2 or less=30 mEq. For potassium level 3.1 to 3.3 mmol/L and Serum Creatinine 1.2 or less=40 mEq. For potassium level 3 mmol/L or less and Serum Creatinine 1.2 or less=50 mEq. Forpotassium level 3.4 to 3.8 mmol/L and Serum Creatinine greater than 1.2=20 mEq. For potassium level 3.1 to 3.3 mmol/L and Serum Creatinine greater than 1.2=30 mEq. For potassium level 3 mmol/L or less and Serum Creatinine greater than 1.2=40 mEq. Do not crush or chew. Or potassium chloride (KAYCIEL) 20 mEq/15 mL solution 20-40 mEqJump to med 20-40 mEq, oral, As needed, potassium replacement, Starting on Tue12/14/24 at 0703, Progress to oral potassium replacement when patient tolerating oral intake. If dose administered, recheck potassium level 4 hours after last dose. For potassium level 3.4 to 3.8 mmol/L and Serum Creatinine 1.2 or less=30 mEq (22.5mL). For potassium level 3.1 to 3.3 mmol/L and Serum Creatinine 1.2 or less=40 mEq (30mL). For potassium level 3 mmol/L or less and Serum Creatinine 1.2 or less=50 mEq (37.5mL). For potassium level 3.4 to 3.8 mmol/L and Serum Creatinine greater than 1.2=20 mEq (15mL). For potassium level 3.1 to 3.3 mmol/L and Serum Creatinine greater than 1.2=30 mEq (22.5mL). For potassium level 3 mmol/L or less and Serum Creatinine greater than 1.2=40 mEq (30mL). Must dilute before use - Mix in 3-8 ounces of water or juice before administration When administering in feeding tube, flush before and after per policy and monitor potassium levels Group 4: potassium chloride IVPB 10 mEq/50 mL in water (0.2 mEq/mL premix)Jump to med 10 mEq, intravenous, at 50 mL/hr, Administer over 1 Hours, As needed, for potassium replacement, Starting on Tue12/14/24 at 0703, Administer Potassium Chloride IVPB in 10 mEq increments. Maximum infusion rates: Central Line = 20 mEq/hour. Administer via Central Line Only. If dose administered, recheck potassium level 1 hour after infusion complete. For potassium level 3.4 to 3.8 mmol/L and Serum Creatinine 1.2 or less = 30 mEq For potassium level 3.1 to 3.3 mmol/L and Serum Creatinine 1.2 or less = 40 mEq For potassium level 3 mmol/L or less and Serum Creatinine 1.2 or less = 50 mEq For potassium level 3.4 to 3.8 mmol/L and Serum Creatinine greater than 1.2 = 20 mEq For potassium level 3.1 to 3.3 mmol/L and Serum Creatinine greater than 1.2 = 30 mEq For potassium level 3 mmol/L or less and Serum Creatinine greater than 1.2 = 40 mEq VESICANT (YELLOW) Or potassium chloride IVPB 10 mEq/100 mL in water (0.1 mEq/mL premix)Jump to med 10 mEq, intravenous, at 100 mL/hr, Administer over 60 Minutes, As needed, for potassium replacement, Starting on Tue12/14/24 at 0703, Administer Potassium Chloride IVPB in 10 mEq increments. Maximum infusion rates: Central Line = 20 mEq/hour; Peripheral Line = 10 mEq/hour (10 mEq/100 mL). If dose administered, recheck potassium level 1 hour after infusion complete. For potassium level 3.4 to 3.8 mmol/L and Serum Creatinine 1.2 or less = 30 mEq For potassium level 3.1 to 3.3 mmol/L and Serum Creatinine 1.2 or less = 40 mEq For potassium level 3 mmol/L or less and Serum Creatinine 1.2 or less = 50 mEq For potassium level 3.4 to 3.8 mmol/L and Serum Creatinine greater than 1.2 = 20 mEq For potassium level 3.1 to 3.3 mmol/L and Serum Creatinine greater than 1.2 = 30 mEq For potassium level 3 mmol/L or less and Serum Creatinine greater than 1.2 = 40 mEq VESICANT (YELLOW) Infuse each 10 mEq over a minimum of 1 hour. Group 5: sodium phosphate 20 mmol in sodium chloride 0.9 % 250 mL IVPBJump to med 20 mmol, intravenous, at 42.8 mL/hr, Administer over 6 Hours, As needed, for phosphorous level 2.3 mg/dL or less, Starting on Tue12/14/24 at 0703, Administer over 6 hours via dedicated line (peripheral line). If administered, recheck phosphorus level 4 hours after infusion complete. Or sodium phosphate 20 mmol in sodium chloride 0.9 % 100 mL IVPBJump to med 20 mmol, intravenous, at 26.7 mL/hr, Administer over 4 Hours, As needed, for phosphorous level 2.3 mg/dL or less, Starting on Tue12/14/24 at 0703, Administer over 4 hours via dedicated line(central line). If administered, recheck phosphorus level 4 hours after infusion complete. Infuse using central line access. Or sod phos di, mono-K phos mono (K-PHOS NEUTRAL) 250 mg tablet 2 tabletJump to med 2 tablet, oral, As needed, for phosphorous level 2.3 mg/dL or less, Starting on Tue12/14/24 at 0703, If dose administered, recheck phosphorus level 4 hours after last dose. Look-alike/sound-alike medication - verify indication for use. Give with a full glass of water. FOR RECORDS PERTAINING TO PATIENTS WHO ARE [...] BE BASED ON THE PRIMARY CLINICAL RECORDS. [facility] [employer] [facility]. provides no warranty or guarantee of the accuracy or completeness of information in this document.
--- NOTE | 2025-03-22 10:31 | MM_ITS ---
Patient Name: KYLEIGH BHAKTA MR#: [id number] : 1965 Exam Date: 03/22/2025 Ordering Doctor: DR BRYSON RODRIGUEZ M.D. RADIOLOGY REPORT PROCEDURE: MM TOMOSYNTHESIS SCREENING BI COMPARISON: MM TOMOSYNTHESIS SCREENING BI, 12/28/2023. MG MAMM SCREEN 3D ALEX CAD, 08/02/2022. MG MAMM SCREEN 3D ALEX CAD, 07/30/2021. MG MAMM SCREEN ALEX W CAD, 04/01/2016. INDICATIONS: Screening Calculator Name NCI Breast Cancer Risk Assessment Tool 5 Year Breast Cancer Risk 1.30% Lifetime Breast Cancer Risk 6.40% Personal Breast Cancer No Personal Ovarian Cancer No Treatments None Family Cancers Father with all over cancer at age 33. LOCATION: [facility] BREAST COMPOSITION: The breasts are extremely dense, which lowers the sensitivity of mammography. FINDINGS: DIAGNOSTIC CATEGORY 1--NEGATIVE. RIGHT BREAST: No significant suspicious finding. LEFT BREAST: No significant suspicious finding. RECOMMENDATIONS: ROUTINE MAMMOGRAM AND CLINICAL EVALUATION IN 12 MONTHS. Dictated by: Shahzad Ortiz DO on 03/22/2025 at 15:50 Approved by: Shahzad Ortiz DO on 03/22/2025 at 15:51
== END 2025-03-22 10:05 | disposition home or self-care (01) ==
LOC: MAMMO 10:04
PROVIDERS: PCP Family Medicine; Visit Provider Family Medicine
DX: Z12.31 Encounter for screening mammogram for malignant neoplasm of breast (principal); Z80.8 Family history of malignant neoplasm of other organs or systems
CPT/HCPCS: 77063; 77067